=== PATIENT | male | born 1945 | race Caucasian/White ===

== ENCOUNTER 2017-09-08 01:12 | Inpatient (IN) | payer MEDICARE ==
[2017-09-08] MEDS ORDERED: SODIUM CHLORIDE 0.9% 1,000 ML IV ONE (01:49)
[2017-09-08 02:25] LABS: Basophils # (A) 0.1 k/uL (0-0.2); Basophils % (A) 1 %; Eosinophils # (A) 0.3 k/uL (0-0.7); Eosinophils % (A) 3 %; HCT 37.6 % (39.0-53.0); HGB 12.5 gm/dL (13.0-17.5); Lymphocytes % (A) 20 %; MCH 30.6 pg (25.0-35.0); MCHC 33.3 g/dL (31.0-37.0); Mean Platelet Volume 6.6; Monocytes # (A) 0.5 k/uL (0-1.0); Monocytes % (A) 5 %; Neutrophils # (A) 6.6 k/uL (1.3-7.7); Neutrophils % (A) 69 %; Platelet Count 269 k/uL (150-450); RBC 4.08 m/uL (4.30-5.90); WBC 9.6 k/uL (3.8-10.6)
[2017-09-08 02:34] LABS: Albumin 3.8 g/dL (3.5-5.0); Calcium 10.7 mg/dL (8.4-10.2); Lithium 1.1 mmol/L; Potassium 4.8 mmol/L (3.5-5.1); Total Bilirubin 0.2 mg/dL (0.2-1.3); Total Protein 6.2 g/dL (6.3-8.2)
--- NOTE | 2017-09-08 02:39 | XR ---
EXAMINATION TYPE: XR chest 2V DATE OF EXAM: 09/08/2017 COMPARISON: 01/11/2015 HISTORY: Altered mental status TECHNIQUE: Frontal and lateral views of the chest are obtained. FINDINGS: There is no heart failure nor confluent pneumonic infiltrate. Thoracic aorta is atheromato us. There is left axillary pacemaker with lead tips in the right ventricle. There are chest leads. IMPRESSION: No active cardiopulmonary disease. Atheromatous aorta. There is clearing of the lower lo be pulmonary infiltrates compared to old exam.
[2017-09-08 02:40] LABS: Prothrombin Time 9.5 sec (9.0-12.0)
[2017-09-08 02:42] LABS: Partial Thromboplastin Time 21.1 sec (22.0-30.0)
--- NOTE | 2017-09-08 02:46 | CT ---
EXAMINATION TYPE: CT brain wo con DATE OF EXAM: 09/08/2017 COMPARISON: 06/24/2010 HISTORY: AMS CT DLP: 1108.40 mGycm Automated exposure control for dose reduction was used. FINDINGS: There is 8 x 3 cm area of hypodensity in the right occipital lobe related to old cortical infarct. Th ere is no mass effect nor midline shift. There is no sign of intracranial hemorrhage. The calvarium i s intact. 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 NO ACUTE INTRACRANIAL ABNORMALITY. NO CHANGE.
[2017-09-08 03:07] LABS: Appearance,Urine Clear (Clear); Bilirubin,Urine Negative (Negative); Blood,Urine Negative (Negative); Color,Urine Yellow; Glucose,Urine (UA) Negative (Negative); Hyaline Casts,Urine 5 /lpf (0-2); Ketones,Urine Negative (Negative); Leukocyte Esterase,Urine Trace (Negative); Mucus,Urine Rare /hpf; Nitrite,Urine Negative (Negative); PH, Urine 6.5 (5.0-8.0); Protein,Urine Negative (Negative); RBC,Urine <1 /hpf (0-5); Specific Gravity,Urine 1.014 (1.001-1.035); Squamous Epithelial Cell,Urine 1 /hpf (0-4); Urobilinogen,Urine <2.0 mg/dL (<2.0); WBC,Urine 3 /hpf (0-5)
--- NOTE | 2017-09-08 04:22 | ED ---
Altered Mental Status HPI - General Chief Complaint: Altered Mental Status Stated Complaint: altered mental status Time Seen by Provider: 09/08/17 01:26 Source: patient Mode of arrival: ambulatory Limitations: no limitations - History of Present Illness Initial Comments: 72 years old gentleman brought in by she said she noticed that he has been confused for the last few days she also noticed that he had a jerky movements of his upper extremities is concerned about the altered mental status patient himself denies any headaches no neck pain no chest pain he has a shortness of breath but actually his baseline he has smoked most of his life no abdominal pain no frequency urgency dysuria no symptoms are TIA or CVA he has a history of heart disease he has a pacemaker in place - Related Data Home Medications Medication Instructions Recorded Confirmed Armodafinil [Nuvigil] 150 mg PO QAM 01/11/15 01/11/15 Aspirin 81 mg PO DAILY 01/11/15 01/11/15 Atorvastatin [Lipitor] 40 mg PO HS 01/11/15 01/11/15 Calcium Carbonate [Calcium] 600 mg PO DAILY 01/11/15 01/11/15 Carvedilol [Coreg] 3.125 mg PO BID 01/11/15 01/11/15 Ferrous Sulfate [Iron (65 MG 325 mg PO DAILY 01/11/15 01/11/15 Elemental)] Insulin Aspart [NovoLOG] 10 - 14 units SQ ACHS 01/11/15 01/11/15 Insulin Detemir [Levemir] 47 unit SQ BID 01/11/15 01/11/15 Irbesartan [Avapro] 75 mg PO DAILY 01/11/15 01/11/15 [place] Carbonate [[place] 300 mg PO HS 01/11/15 01/11/15 Carbonate ER] Omeprazole [PriLOSEC] 20 mg PO AC-BRKFST 01/11/15 01/11/15 metFORMIN HCL [Glucophage] 500 mg PO BID 01/11/15 01/11/15 Previous Rx's Medication Instructions Recorded Cephalexin [Keflex] 500 mg PO Q8HR #15 cap 01/14/15 Furosemide [Lasix] 40 mg PO DAILY #30 tablet 01/14/15 Nicotine 21Mg/24Hr Patch [Habitrol] 1 patch TRANSDERM DAILY #30 patch 01/14/15 SILVER sulfADIAZINE Cream 1 applic TOPICAL DAILY #50 gm 01/14/15 [Silvadene 1% Cream] Spironolactone [Aldactone] 25 mg PO DAILY #30 tab 01/14/15 Allergies Allergy/AdvReac Type Severity Reaction Status Date / Time No Known Allergies Allergy Verified 09/08/17 01:19 Review of Systems ROS Statement: Those systems with pertinent positive or pertinent negative responses have been documented in the HPI. ROS Other: All systems not noted in ROS Statement are negative. Past Medical History Past Medical History: Heart Failure, CVA/TIA, Diabetes Mellitus, Hyperlipidemia , Hypertension Additional Past Medical History / Comment(s): missing ring finger on right hand History of Any Multi-Drug Resistant Organisms: None Reported Past Surgical History: Pacemaker Additional Past Surgical History / Comment(s): carotid artery surgery Past Anesthesia/Blood Transfusion Reactions: No Reported Reaction Type of Cardiac Device: Permanent Pacemaker Device Placement Date:: 2009 Past Psychological History: No Psychological Hx Reported Smoking Status: Current every day smoker Past Alcohol Use History: None Reported Past Drug Use History: None Reported - Past Family History Mother Family Medical History: Cancer Brother(s) Family Medical History: Cancer General Exam - General Exam Comments Initial Comments: General: The patient is awake and alert, in no distress, and does not appear acutely ill. GCS is 15 Skin: Skin is warm and dry and no rashes or lesions are noted. Eye: Pupils are equal, round and reactive to light, extra-ocular movements are intact; there is normal conjunctiva bilaterally. Ears, nose, mouth and throat: There are moist mucous membranes and no oral lesions. Neck: The neck is supple, there is no tenderness or JVD. Cardiovascular: There is a regular rate and rhythm. No murmur, rub or gallop is appreciated. Respiratory: To auscultation bilateral, no wheezing no rhonchi no distress respiratory fonseca noticed Gastrointestinal: Soft, non-distended, non-tender abdomen without masses or organomegaly noted. There is no rebound or guarding present. Bowel sounds are unremarkable. Back: There is no tenderness to palpation in the midline. There is no obvious deformity. Musculoskeletal: Normal ROM, no tenderness, There is no pedal edema. There is no calf tenderness or swelling. No cords were appreciated. Neurological: CN II-XII intact, Cranial nerves III through XII are intact. There are no obvious motor or sensory deficits. Coordination appears grossly intact. Speech is normal. Psychiatric: Cooperative, appropriate mood & affect, normal judgment. Limitations: no limitations Course Vital Signs 09/08/17 01:15 Temperature 98.5 F Pulse Rate 70 Respiratory 18 Rate Blood Pressure 117/49 O2 Sat by Pulse 97 Oximetry EKG is ventricular rate is 73 QRS duration is 204 QT/QTc is a 46/435 this EKG is a paced EKG History of system CBC is normal INR is normal creatinine is 1.8 troponin is positive urinalysis is unremarkable head CT is normal chest x-ray ruled out any pneumonia or infiltrate, considering his history of heart disease slightly elevated troponin: To admit him observation and consult cardiology Medical Decision Making - Lab Data Result diagrams: 09/08/17 01:40 09/08/17 01:40 Lab Results 09/08/17 09/08/17 09/08/17 Range/Units 01:40 01:40 01:40 WBC 9.6 (3.8-10.6) k/uL RBC 4.08 L (4.30-5.90) m/uL Hgb 12.5 L (13.0-17.5) gm/dL Hct 37.6 L (39.0-53.0) % MCV 92.0 (80.0-100.0) fL MCH 30.6 (25.0-35.0) pg MCHC 33.3 (31.0-37.0) g/dL RDW 13.0 (11.5-15.5) % Plt Count 269 (150-450) k/uL Neutrophils % 69 % Lymphocytes % 20 % Monocytes % 5 % Eosinophils % 3 % Basophils % 1 % Neutrophils # 6.6 (1.3-7.7) k/uL Lymphocytes # 2.0 (1.0-4.8) k/uL Monocytes # 0.5 (0-1.0) k/uL Eosinophils # 0.3 (0-0.7) k/uL Basophils # 0.1 (0-0.2) k/uL PT 9.5 (9.0-12.0) sec INR 1.0 (<1.2) APTT 21.1 L (22.0-30.0) sec Sodium 141 (137-145) mmol/L Potassium 4.8 (3.5-5.1) mmol/L Chloride 104 (98-107) mmol/L Carbon Dioxide 27 (22-30) mmol/L Anion Gap 10 mmol/L BUN 52 H (9-20) mg/dL Creatinine 1.80 H (0.66-1.25) mg/dL Est GFR (CKD-EPI)AfAm 42 (>60 ml/min/1.73 sqM) Est GFR (CKD-EPI)NonAf 36 (>60 ml/min/1.73 sqM) Glucose 178 H (74-99) mg/dL Calcium 10.7 H (8.4-10.2) mg/dL Total Bilirubin 0.2 (0.2-1.3) mg/dL AST 16 L (17-59) U/L ALT 30 (21-72) U/L Alkaline Phosphatase 67 (38-126) U/L Troponin I (0.000-0.034) ng/mL Total Protein 6.2 L (6.3-8.2) g/dL Albumin 3.8 (3.5-5.0) g/dL Urine Color Urine Appearance (Clear) Urine pH (5.0-8.0) Ur Specific [place] (1.001-1.035) Urine Protein (Negative) Urine Glucose (UA) (Negative) Urine Ketones (Negative) Urine Blood (Negative) Urine Nitrite (Negative) Urine Bilirubin (Negative) Urine Urobilinogen (<2.0) mg/dL Ur Leukocyte Esterase (Negative) Urine RBC (0-5) /hpf Urine WBC (0-5) /hpf Ur Squamous Epith Cells (0-4) /hpf Hyaline Casts (0-2) /lpf Urine Mucus (None) /hpf [place] 1.1 mmol/L 09/08/17 09/08/17 Range/Units 01:40 02:58 WBC (3.8-10.6) k/uL RBC (4.30-5.90) m/uL Hgb (13.0-17.5) gm/dL Hct (39.0-53.0) % MCV (80.0-100.0) fL MCH (25.0-35.0) pg MCHC (31.0-37.0) g/dL RDW (11.5-15.5) % Plt Count (150-450) k/uL Neutrophils % % Lymphocytes % % Monocytes % % Eosinophils % % Basophils % % Neutrophils # (1.3-7.7) k/uL Lymphocytes # (1.0-4.8) k/uL Monocytes # (0-1.0) k/uL Eosinophils # (0-0.7) k/uL Basophils # (0-0.2) k/uL PT (9.0-12.0) sec INR (<1.2) APTT (22.0-30.0) sec Sodium (137-145) mmol/L Potassium (3.5-5.1) mmol/L Chloride (98-107) mmol/L Carbon Dioxide (22-30) mmol/L Anion Gap mmol/L BUN (9-20) mg/dL Creatinine (0.66-1.25) mg/dL Est GFR (CKD-EPI)AfAm (>60 ml/min/1.73 sqM) Est GFR (CKD-EPI)NonAf (>60 ml/min/1.73 sqM) Glucose (74-99) mg/dL Calcium (8.4-10.2) mg/dL Total Bilirubin (0.2-1.3) mg/dL AST (17-59) U/L ALT (21-72) U/L Alkaline Phosphatase (38-126) U/L Troponin I 0.037 H* (0.000-0.034) ng/mL Total Protein (6.3-8.2) g/dL Albumin (3.5-5.0) g/dL Urine Color Yellow Urine Appearance Clear (Clear) Urine pH 6.5 (5.0-8.0) Ur Specific [place] 1.014 (1.001-1.035) Urine Protein Negative (Negative) Urine Glucose (UA) Negative (Negative) Urine Ketones Negative (Negative) Urine Blood Negative (Negative) Urine Nitrite Negative (Negative) Urine Bilirubin Negative (Negative) Urine Urobilinogen <2.0 (<2.0) mg/dL Ur Leukocyte Esterase Trace H (Negative) Urine RBC <1 (0-5) /hpf Urine WBC 3 (0-5) /hpf Ur Squamous Epith Cells 1 (0-4) /hpf Hyaline Casts 5 H (0-2) /lpf Urine Mucus Rare H (None) /hpf [place] mmol/L Disposition Clinical Impression: Change in mental status, Elevated troponin Disposition: ADMITTED IP TO THIS HOSP Condition: Good Referrals: Aria Zarco DO [Primary Care Provider] - 1-2 days
[2017-09-08] MEDS ORDERED: NITROGLYCERIN SL TABS 0.4 MG TAB SUBLINGUAL PRN (04:28)
[2017-09-08] MEDS ORDERED: MORPHINE SULFATE 2 MG/ML SYRINGE IVP PRN (04:28)
[2017-09-08] MEDS ORDERED: ACETAMINOPHEN TAB 325 MG TAB PO PRN (04:28)
[2017-09-08] MEDS: NICOTINE 21MG/24HR PATCH TRANSDERM SCH ×2 (05:07→10:08)
[2017-09-08 06:15] LABS: Glucose,Whole Blood 70 mg/dL (75-99)
[2017-09-08] MEDS ORDERED: PANTOPRAZOLE 40 MG TABLET PO SCH (07:30)
[2017-09-08 08:57] LABS: Creatine Kinase MB 1.2 ng/mL (0.0-2.4)
[2017-09-08] MEDS ORDERED: metFORMIN 500 MG TAB PO SCH (09:00)
[2017-09-08 09:01] LABS: Troponin I 0.035 ng/mL (0.000-0.034)
[2017-09-08 09:33] LABS: Glucose,Whole Blood 66 mg/dL (75-99)
[2017-09-08 09:44] LABS: Glucose,Whole Blood 81 mg/dL (75-99)
[2017-09-08] MEDS: INSULIN ASPART 100 UNIT/ML 1 ML 10 ML VIAL SQ SCH ×4 (09:58→21:47)
[2017-09-08] MEDS: Armodafinil [Nuvigil] 150 MG PO SCH (10:05)
[2017-09-08] MEDS: FERROUS SULFATE 325 MG TAB PO SCH (10:07)
[2017-09-08] MEDS: CARVEDILOL 3.125 MG TAB PO SCH ×2 (10:07→21:35)
[2017-09-08] MEDS: CALCIUM CARBONATE 500 MG CHEWABLE PO SCH (10:07)
[2017-09-08] MEDS: SPIRONOLACTONE 25 MG TAB PO SCH (10:08)
[2017-09-08] MEDS: LOSARTAN 25 MG TAB PO SCH (10:08)
[2017-09-08] MEDS: FUROSEMIDE 40 MG TAB PO SCH (10:08)
[2017-09-08] MEDS: INSULIN DETEMIR 100 UNIT/ML 10 ML VIAL SQ SCH ×3 (10:08→21:54)
[2017-09-08 12:03] LABS: Glucose,Whole Blood 135 mg/dL (75-99)
--- NOTE | 2017-09-08 12:54 | P.CRDCN ---
History of Present Illness Consult date: 09/08/17 Requesting physician: Ronna Novak Reason for Consult (text): Abnormal troponin Chief complaint: Mental status changes History of present illness: His is a 72-year-old gentleman who follows regularly with a retail tire sales manager in the [facility]. He has known history of hypertension, diabetes , prior CVA, hyperlipidemia, prior pacemaker implantation which was recently interrogated in the past 3-4 months and was functioning appropriately, nonischemic cardiomyopathy with prior documented ejection fraction of 20%, chronic heart failure. Patient was brought to the hospital on this occasion because of mental status changes and confusion. According to the , patient also was having jerky movements of his upper extremities for which she is quite concerned about. Troponins were drawn in the emergency room and for this reason a cardiology consultation was requested. Initial troponin 0.037, subsequent troponin 0.035. White blood cell count 9.6, hemoglobin 12.5, platelet count 269. Sodium 141, potassium 4.8, BUN 52, creatinine 1.8. EKG on arrival showed a ventricular paced rhythm. Chest x-ray did not reveal any active cardiopulmonary disease. Atheromatous aorta. Clearing of lower lobe infiltrates as compared with prior exam. CAT scan of the brain revealed old right bicipital low cortical infarct no acute intracranial abnormality. Blood pressure 110/50 with a heart rate in the 60s, 94% on room air. At the time of our examination, patient is alert and oriented, is at bedside. He denies having any chest discomfort. Breathing overall has been stable. Past Medical History Past Medical History: Heart Failure, CVA/TIA, Diabetes Mellitus, Hyperlipidemia , Hypertension Additional Past Medical History / Comment(s): Missing ring finger on right hand History of Any Multi-Drug Resistant Organisms: None Reported Past Surgical History: Pacemaker Additional Past Surgical History / Comment(s): carotid artery surgery Past Anesthesia/Blood Transfusion Reactions: No Reported Reaction Type of Cardiac Device: Permanent Pacemaker Device Placement Date:: 2009 Past Psychological History: No Psychological Hx Reported Smoking Status: Current every day smoker Past Alcohol Use History: None Reported Past Drug Use History: None Reported - Past Family History Mother Family Medical History: Cancer Brother(s) Family Medical History: Cancer Medications and Allergies Home Medications Medication Instructions Recorded Confirmed Type Armodafinil [Nuvigil] 150 mg PO HS 01/11/15 09/08/17 History Aspirin 81 mg PO HS 01/11/15 09/08/17 History Atorvastatin [Lipitor] 40 mg PO HS 01/11/15 09/08/17 History Carvedilol [Coreg] 3.125 mg PO BID 01/11/15 09/08/17 History Ferrous Sulfate [Iron (65 MG 325 mg PO DAILY@1200 01/11/15 09/08/17 History Elemental)] Insulin Aspart [NovoLOG] See Protocol SQ AC-TID 01/11/15 09/08/17 History Insulin Detemir [Levemir] 47 unit SQ BID 01/11/15 09/08/17 History Irbesartan [Avapro] 75 mg PO W/SUPPER 01/11/15 09/08/17 History [place] Carbonate [[place] 300 mg PO DAILY 01/11/15 09/08/17 History Carbonate ER] metFORMIN HCL [Glucophage] 500 mg PO BID 01/11/15 09/08/17 History Furosemide [Lasix] 40 mg PO DAILY #30 tablet 01/14/15 09/08/17 Rx SILVER sulfADIAZINE Cream 1 applic TOPICAL DAILY #50 gm 01/14/15 09/08/17 Rx [Silvadene 1% Cream] Calcium Carbonate/Vitamin D3 1 tab PO DAILY@1200 09/08/17 09/08/17 History [Calcium 500-Vit D3 200 Tablet] Cilostazol [Pletal] 50 mg PO BID 09/08/17 09/08/17 History Famotidine [Pepcid] 20 mg PO HS 09/08/17 09/08/17 History Spironolactone [Aldactone] 12.5 mg PO DAILY@1200 09/08/17 09/08/17 History Allergies Allergy/AdvReac Type Severity Reaction Status Date / Time No Known Allergies Allergy Verified 09/08/17 08:03 Physical Exam Vitals: Vital Signs Temp Pulse Pulse Resp BP BP Pulse Ox 09/08/17 12:00 97.5 F L 66 18 109/53 94 L 09/08/17 08:00 97.3 F L 70 18 106/68 96 09/08/17 06:00 97.8 F 65 18 134/76 96 09/08/17 01:15 98.5 F 70 18 117/49 97 Intake and Output 09/07/17 09/08/17 09/08/17 22:59 06:59 14:59 Other: Voiding Method Toilet Toilet Incontinent Incontinent Weight 93 kg 93 kg PHYSICAL EXAMINATION: GENERAL: 72-year-old gentleman in no apparent distress at the time of our examination. HEENT: Head is atraumatic, normocephalic. Pupils equal, round. Sclera anicteric. Conjunctiva are clear. Mucous membranes of the mouth are moist. Neck is supple. There is no elevated jugular venous pressure.] bruit is heard. HEART EXAMINATION: Heart S1, S2 normal. No murmur or gallop heard. CHEST EXAMINATION: Lungs are clear to auscultation and precussion. No chest wall tenderness is noted on palpation or with deep breathing. ABDOMEN: Soft, nontender. Bowel sounds are heard. No organomegaly noted. EXTREMITIES: 2+ peripheral pulses with no evidence of peripheral edema and no calf tenderness noted. NEUROLOGIC patient is awake, alert and oriented -3. . Results 09/08/17 01:40 09/08/17 01:40 Cardiac Enzymes 09/08/17 09/08/17 09/08/17 Range/Units 01:40 01:40 07:47 AST 16 L (17-59) U/L CK-MB (CK-2) 1.2 (0.0-2.4) ng/mL Troponin I 0.037 H* 0.035 H* (0.000-0.034) ng/mL Coagulation 09/08/17 Range/Units 01:40 PT 9.5 (9.0-12.0) sec APTT 21.1 L (22.0-30.0) sec CBC 09/08/17 Range/Units 01:40 WBC 9.6 (3.8-10.6) k/uL RBC 4.08 L (4.30-5.90) m/uL Hgb 12.5 L (13.0-17.5) gm/dL Hct 37.6 L (39.0-53.0) % Plt Count 269 (150-450) k/uL Comprehensive Metabolic Panel 09/08/17 Range/Units 01:40 Sodium 141 (137-145) mmol/L Potassium 4.8 (3.5-5.1) mmol/L Chloride 104 (98-107) mmol/L Carbon Dioxide 27 (22-30) mmol/L BUN 52 H (9-20) mg/dL Creatinine 1.80 H (0.66-1.25) mg/dL Glucose 178 H (74-99) mg/dL Calcium 10.7 H (8.4-10.2) mg/dL AST 16 L (17-59) U/L ALT 30 (21-72) U/L Alkaline Phosphatase 67 (38-126) U/L Total Protein 6.2 L (6.3-8.2) g/dL Albumin 3.8 (3.5-5.0) g/dL Current Medications Generic Name Dose Route Start Last Admin Trade Name Freq PRN Reason Stop Dose Admin Acetaminophen 650 mg 09/08/17 04:28 Tylenol Tab PO Q4HR PRN Pain Aspirin 325 mg 09/09/17 09:00 Aspirin PO DAILY [facility] Atorvastatin Calcium 40 mg 09/08/17 21:00 Lipitor PO HS [facility] Calcium Carbonate/Glycine 600 mg 09/08/17 09:00 09/08/17 10:07 Tums PO Not Given DAILY [facility] Carvedilol 3.125 mg 09/08/17 09:00 09/08/17 10:07 Coreg PO 3.125 mg BID [facility] Administration Ferrous Sulfate 325 mg 09/08/17 09:00 09/08/17 10:07 Feosol PO 325 mg DAILY [facility] Administration Furosemide 40 mg 09/08/17 09:00 09/08/17 10:08 Lasix PO 40 mg DAILY [facility] Administration Sodium Chloride 1,000 mls @ 75 mls/hr 09/08/17 01:49 09/08/17 02:55 Saline 0.9% IV 09/08/17 15:08 75 mls/hr .[id number] ONE Administration Insulin Aspart 10 unit 09/08/17 07:30 09/08/17 09:58 Novolog SQ Not Given ACHS [facility] Insulin Detemir 47 unit 09/08/17 09:00 09/08/17 10:08 Levemir SQ 26 unit BID [facility] Administration [place] Carbonate 300 mg 09/08/17 21:00 [place] Carbonate PO HS [facility] Losartan Potassium 25 mg 09/08/17 09:00 09/08/17 10:08 Cozaar PO 25 mg DAILY [facility] Administration Morphine Sulfate 2 mg 09/08/17 04:28 Morphine Sulfate (Inj) IVP Q5M PRN Chest Pain Nicotine 1 patch 09/08/17 05:00 09/08/17 10:08 Habitrol 21mg/24hr Patch TRANSDERM 1 patch DAILY [facility] Administration Nitroglycerin 0.4 mg 09/08/17 04:28 Nitrostat SUBLINGUAL Q5M PRN Chest Pain Armodafinil [Nuvigil 150 mg 09/08/17 09:00 09/08/17 10:05 ] 150 Mg PO Not Given QAM [facility] Pantoprazole Sodium 40 mg 09/08/17 07:30 09/08/17 06:02 Protonix PO 40 mg AC-BRKFST [facility] Administration Silver Sulfadiazine 1 applic 09/08/17 09:00 09/08/17 10:08 Silvadene Cream TOPICAL 1 applic DAILY [facility] Administration Spironolactone 25 mg 09/08/17 09:00 09/08/17 10:08 Aldactone PO 25 mg DAILY [facility] Administration Intake and Output 09/07/17 09/08/17 09/08/17 22:59 06:59 14:59 Other: Voiding Method Toilet Toilet Incontinent Incontinent Weight 93 kg 93 kg Patient Weight 09/09/17 06:59 Weight 93 kg 09/08/17 01:40 09/08/17 01:40 EKG Interpretations (text) EKG shows a ventricular paced rhythm. Assessment and Plan Plan: Assessment and plan #1 mental status changes and confusion with associated jerking of the upper extremities. CAT scan reveals old right this the lobe cortical infarct. No acute intracranial abnormality. #2 abnormal troponins, could be secondary to abnormal renal function. Not suggestive of acute coronary syndrome. #3 nonischemic cardiomyopathy with prior documented ejection fraction of less than 20% #4 prior pacemaker implantation, recently interrogated approximately 3 months ago and functioning appropriately according to the . #5 prior history of CVA #6 prior left carotid endarterectomy #7 hypertension #8 hyperlipidemia #9 diabetes Plan We will repeat an echocardiogram with Doppler study. Decrease aspirin 81 mg daily. Continue by mouth Lasix, Cozaar, Aldactone, and Coreg. Troponin abnormality not consistent with acute coronary syndrome. Further recommendations to follow. DNP note has been reviewed, I agree with a documented findings and plan of care. Patient was seen and examined.
--- NOTE | 2017-09-08 13:56 | ECHOF ---
Referral Reason:elevated troponin MEASUREMENTS -------- HEIGHT: 162.6 cm WEIGHT: 93.0 kg BP: IVSd: 1.3 cm (0.6 - 1.1) LVIDd: 5.0 cm (3.9 - 5.3) LVPWd: 0.9 cm (0.6 - 1.1) IVSs: 1.5 cm LVIDs: 4.4 cm LVPWs: 1.3 cm LA Diam: 4.3 cm (2.7 - 3.8) LAESV Index (A-L): 42.56 ml/m Ao Diam: 3.7 cm (2.0 - 3.7) AV Cusp: 2.1 cm (1.5 - 2.6) LA Diam: 4.0 cm (2.7 - 3.8) MV EXCURSION: 20.130 mm (> 18.000) MV EF SLOPE: 70 mm/s (70 - 150) EPSS: 1.1 cm MV E Mono: 0.69 m/s MV DecT: 296 ms MV A Mono: 1.28 m/s MV E/A Ratio: 0.54 RAP: 5.00 mmHg RVSP: 9.71 mmHg FINDINGS -------- Paced rhythm. This was a techncally difficult study with suboptimal views, , Lumason utilized for enhancement of im ages. The left ventricular size is normal. There is mild concentric left ventricular hypertrophy. Overa ll left ventricular systolic function is moderately impaired with, an EF between 35 - 40 %. Basal l ateral LV wall motion is hypokinetic. Basal inferior LV wall motion is hypokinetic. Mid lateral LV wall motion is hypokinetic. Mid inferior LV wall motion is hypokinetic. Apical lateral LV w all motion is hypokinetic. Apical inferior LV wall motion is hypokinetic. Lateral hypokinesis The right ventricle is normal in size. LA is severely dilated >40 ml/m2 The right atrial size is normal. 5.0mg OF Lumason UTLIZED: 2 OR MORE WALL SEGMENTS NOT VISUALIZED. There is mild aortic valve sclerosis. There is no evidence of aortic regurgitation. Mild mitral annular calcification present. Mild mitral regurgitation is present. Mild tricuspid regurgitation present. There is no evidence of pulmonary hypertension. The right v entricular systolic pressure, as measured by Doppler, is 9.71mmHg. The pulmonic valve was not well visualized. There is no pulmonic regurgitation present. The aortic root size is normal. There is no pericardial effusion. CONCLUSIONS -------- 1. Paced rhythm. 2. This was a techncally difficult study with suboptimal views, , Lumason utilized for enhancement of images. 3. The left ventricular size is normal. 4. There is mild concentric left ventricular hypertrophy. 5. Overall left ventricular systolic function is moderately impaired with, an EF between 35 - 40 %. 6. Basal lateral LV wall motion is hypokinetic. 7. Mid inferior LV wall motion is hypokinetic. 8. Apical lateral LV wall motion is hypokinetic. 9. Apical inferior LV wall motion is hypokinetic. 10. Lateral hypokinesis 11. LA is severely dilated >40 ml/m2 12. 5.0mg OF [place] UTLIZED: 2 OR MORE WALL SEGMENTS NOT VISUALIZED. 13. There is mild aortic valve sclerosis. 14. Mild mitral annular calcification present. 15. Mild mitral regurgitation is present. 16. Mild tricuspid regurgitation present. 17. There is no evidence of pulmonary hypertension. 18. There is no pulmonic regurgitation present. 19. The aortic root size is normal. 20. There is no pericardial effusion. RETAIL SALES SPECIALIST: Serenity Bravo RDCS
[2017-09-08] MEDS ORDERED: SODIUM CHLORIDE 0.9% 1,000 ML IV SCH ×2 (15:15→16:00)
[2017-09-08 15:26] LABS: Creatine Kinase MB 1.4 ng/mL (0.0-2.4)
[2017-09-08 15:33] LABS: Troponin I 0.038 ng/mL (0.000-0.034)
--- NOTE | 2017-09-08 16:02 | P.HPIM ---
History of Present Illness This is a pleasant 72 years old male with past medical history of CHF, CVA/TIA, diabetes mellitus, hyperlipidemia, hypertension, mesentery finger on the right and, S/P carotid artery surgery, S/P permanent pacemaker. Patient presents because of confusion and upper extremity jerking movements of one-day duration. Patient is poor historian and most of the information were taken from the chart and at bedside Mrs. Luna. The noticed that the patient was more confused today and yesterday for example he couldn't recognize the portals he was taken. Also she noticed some jerking movements of his upper extremity which were stable now. Patient also was complaining of from vomiting to 3 days ago. And on examination when it was noticed that his right leg is wrapped in a bandage and it looks right with no open wound, and warm to touch In the ED patient was found to have positive troponin of 0.037, 0.035. WBC is 9.6K, hemoglobin is 12.5. INR is 1.0. His creatinine was high at 1.8 [ baseline 1.2-1.3]. Sodium 141, potassium 4.8. Liver enzymes were unremarkable. UA is negative for infection. Head CT old occipital infarct with no acute changes Echo shows EF 35-40%, paced rhythm, and hypokinetic LV wall motion abnormality Review of Systems CONSTITUTIONAL: No fever, no malaise, no fatigue. HEENT: No recent visual problems or hearing problems. Denied any sore throat. CARDIOVASCULAR: No orthopnea, PND, no palpitations, no syncope. PULMONARY: No shortness of breath, no cough, no hemoptysis. GASTROINTESTINAL: No diarrhea, no nausea, no vomiting, no abdominal pain. Normoactive bowel sounds. NEUROLOGICAL: No headaches, no weakness, no numbness. HEMATOLOGICAL: Denies any bleeding or petechiae. GENITOURINARY: Denies any burning micturition, frequency, or urgency. MUSCULOSKELETAL/RHEUMATOLOGICAL: Denies any joint pain, swelling, or any muscle pain. ENDOCRINE: Denies any polyuria or polydipsia. Past Medical History Past Medical History: Heart Failure, CVA/TIA, Diabetes Mellitus, Hyperlipidemia , Hypertension Additional Past Medical History / Comment(s): Missing ring finger on right hand History of Any Multi-Drug Resistant Organisms: None Reported Past Surgical History: Pacemaker Additional Past Surgical History / Comment(s): carotid artery surgery Past Anesthesia/Blood Transfusion Reactions: No Reported Reaction Type of Cardiac Device: Permanent Pacemaker Device Placement Date:: 2009 Past Psychological History: No Psychological Hx Reported Smoking Status: Current every day smoker Past Alcohol Use History: None Reported Past Drug Use History: None Reported - Past Family History Mother Family Medical History: Cancer Brother(s) Family Medical History: Cancer Medications and Allergies Home Medications Medication Instructions Recorded Confirmed Type Armodafinil [Nuvigil] 150 mg PO HS 01/11/15 09/08/17 History Aspirin 81 mg PO HS 01/11/15 09/08/17 History Atorvastatin [Lipitor] 40 mg PO HS 01/11/15 09/08/17 History Carvedilol [Coreg] 3.125 mg PO BID 01/11/15 09/08/17 History Ferrous Sulfate [Iron (65 MG 325 mg PO DAILY@1200 01/11/15 09/08/17 History Elemental)] Insulin Aspart [NovoLOG] See Protocol SQ AC-TID 01/11/15 09/08/17 History Insulin Detemir [Levemir] 47 unit SQ BID 01/11/15 09/08/17 History Irbesartan [Avapro] 75 mg PO W/SUPPER 01/11/15 09/08/17 History Mccall Carbonate [Mccall 300 mg PO DAILY 01/11/15 09/08/17 History Carbonate ER] metFORMIN HCL [Glucophage] 500 mg PO BID 01/11/15 09/08/17 History Furosemide [Lasix] 40 mg PO DAILY #30 tablet 01/14/15 09/08/17 Rx SILVER sulfADIAZINE Cream 1 applic TOPICAL DAILY #50 gm 01/14/15 09/08/17 Rx [Silvadene 1% Cream] Calcium Carbonate/Vitamin D3 1 tab PO DAILY@1200 09/08/17 09/08/17 History [Calcium 500-Vit D3 200 Tablet] Cilostazol [Pletal] 50 mg PO BID 09/08/17 09/08/17 History Famotidine [Pepcid] 20 mg PO HS 09/08/17 09/08/17 History Spironolactone [Aldactone] 12.5 mg PO DAILY@1200 18 09/08/17 History Allergies Allergy/AdvReac Type Severity Reaction Status Date / Time No Known Allergies Allergy Verified 09/08/17 08:03 Physical Exam Vitals: Vital Signs Temp Pulse Pulse Resp BP BP Pulse Ox 09/08/17 08:00 97.3 F L 70 18 106/68 96 09/08/17 06:00 97.8 F 65 18 134/76 96 09/08/17 01:15 98.5 F 70 18 117/49 97 Intake and Output 09/07/17 09/08/17 09/08/17 22:59 06:59 14:59 Other: Voiding Method Toilet Toilet Incontinent Incontinent Weight 93 kg 93 kg GENERAL: The patient is alert and oriented x1 to person only [he knows name of the president], is oriented to place partially for example he knows in the hospital but he doesn't know the name of the city [place], he was confused about the date to, not in any acute distress. Well developed, well nourished. HEENT: Pupils are round and equally reacting to light. EOMI. No scleral icterus. No conjunctival pallor. Normocephalic, atraumatic. No pharyngeal erythema. No thyromegaly. CARDIOVASCULAR: S1 and S2 present. No murmurs, rubs, or gallops. PULMONARY: Chest is clear to auscultation, no wheezing or crackles. ABDOMEN: Soft, nontender, nondistended, normoactive bowel sounds. No palpable organomegaly. MUSCULOSKELETAL: No joint swelling or deformity. EXTREMITIES: No cyanosis, clubbing, or pedal edema. -Right leg is warm and swollen, with some pinkish area in the lower leg. No open wound NEUROLOGICAL: Gross neurological examination did not reveal any focal deficits. SKIN: No rashes. Results CBC & Chem 7: 09/08/17 01:40 09/08/17 01:40 Labs: Abnormal Lab Results - Last 24 Hours (Table) 09/08/17 09/08/17 09/08/17 Range/Units 01:40 01:40 01:40 RBC 4.08 L (4.30-5.90) m/uL Hgb 12.5 L (13.0-17.5) gm/dL Hct 37.6 L (39.0-53.0) % APTT 21.1 L (22.0-30.0) sec BUN 52 H (9-20) mg/dL Creatinine 1.80 H (0.66-1.25) mg/dL Glucose 178 H (74-99) mg/dL POC Glucose (mg/dL) (75-99) mg/dL Calcium 10.7 H (8.4-10.2) mg/dL AST 16 L (17-59) U/L Total Creatine Kinase (55-170) U/L Troponin I (0.000-0.034) ng/mL Total Protein 6.2 L (6.3-8.2) g/dL Ur Leukocyte Esterase (Negative) Hyaline Casts (0-2) /lpf Urine Mucus (None) /hpf 09/08/17 09/08/17 09/08/17 Range/Units 01:40 02:58 06:06 RBC (4.30-5.90) m/uL Hgb (13.0-17.5) gm/dL Hct (39.0-53.0) % APTT (22.0-30.0) sec BUN (9-20) mg/dL Creatinine (0.66-1.25) mg/dL Glucose (74-99) mg/dL POC Glucose (mg/dL) 70 L (75-99) mg/dL Calcium (8.4-10.2) mg/dL AST (17-59) U/L Total Creatine Kinase (55-170) U/L Troponin I 0.037 H* (0.000-0.034) ng/mL Total Protein (6.3-8.2) g/dL Ur Leukocyte Esterase Trace H (Negative) Hyaline Casts 5 H (0-2) /lpf Urine Mucus Rare H (None) /hpf 09/08/17 09/08/17 Range/Units 07:47 09:20 RBC (4.30-5.90) m/uL Hgb (13.0-17.5) gm/dL Hct (39.0-53.0) % APTT (22.0-30.0) sec BUN (9-20) mg/dL Creatinine (0.66-1.25) mg/dL Glucose (74-99) mg/dL POC Glucose (mg/dL) 66 L (75-99) mg/dL Calcium (8.4-10.2) mg/dL AST (17-59) U/L Total Creatine Kinase 29 L (55-170) U/L Troponin I 0.035 H* (0.000-0.034) ng/mL Total Protein (6.3-8.2) g/dL Ur Leukocyte Esterase (Negative) Hyaline Casts (0-2) /lpf Urine Mucus (None) /hpf Thrombosis Risk Factor Assmnt - Choose All That Apply Any of the Below Risk Factors Present?: Yes Each Factor Represents 1 point: Heart failure (<1month), Obesity (BMI >25), Swollen legs (current) Other Risk Factors: Yes Each Risk Factor Represents 2 Points: Age 61-74 years Thrombosis Risk Factor Assessment Total Risk Factor Score: 5 Thrombosis Risk Factor Assessment Level: High Risk Assessment and Plan Plan: -Acute coronary syndrome, with positive troponins, echocardiogram shows EF 35-40 % with LV wall motion abnormality. Cardiology consultation is called. Continue with aspirin, statin -Acute kidney injury on the top of CKD. Creatinine 1.8 compared to baseline of 1.2-1.3. Call nephrology consult -Mild confusion, mostly secondary to the above problems of the heart, kidney and infection -Hyperlipidemia continue with statin -High blood pressure continue with Coreg 3.125 mg and Lasix 40 mg by mouth daily and Aldactone 25 mg daily -Possible cellulitis of the right lower extremity, started on antibiotic and check Doppler of the lower extremity to rule out DVT -Diabetes mellitus continue with Levemir 47 units twice a day, and NovoLog 10 units before meals at bedtime and insulin sliding scale. Hold metformin 500 mg twice a day -Dehydration, patient looks dehydrated. History of vomiting, dry mucous membranes, and acute kidney injury area we'll start gentle hydration and follow- up with the patient DVT prophylaxis heparin GI prophylaxis Pepcid PT/OT pending Prognosis is guarded given his multiple and complex comorbidities
[2017-09-08 16:40] LABS: Glucose,Whole Blood 173 mg/dL (75-99)
[2017-09-08] MEDS: ceFAZolin 1,000 MG in DEXTROSE/WATER 1 50ML.BAG IVPB SCH ×2 (18:04→23:27)
--- NOTE | 2017-09-08 18:12 | US ---
EXAMINATION TYPE: US venous doppler duplex LE BI DATE OF EXAM: 09/08/2017 3:54 PM COMPARISON: NONE CLINICAL HISTORY: Rule out DVT. Weakness, leg swelling SIDE PERFORMED: Bilateral TECHNIQUE: The lower extremity deep venous system is examined utilizing real time linear array sonog ej with graded compression, doppler sonography and color-flow sonography. VESSELS IMAGED: External Iliac Vein (EIV) Common Femoral Vein Deep Femoral Vein Greater Saphenous Vein * Femoral Vein Popliteal Vein Small Saphenous Vein * Proximal Calf Veins (* superficial vessels) FINDINGS: Grayscale, color doppler, spectral doppler imaging performed of the deep veins of the lower extremities. There is normal flow, compressibility, vascular waveforms. IMPRESSION: NEGATIVE FOR DVT, BILATERAL LOWER EXTREMITIES.
[2017-09-08 20:30] LABS: Glucose,Whole Blood 178 mg/dL (75-99)
[2017-09-08] MEDS: FAMOTIDINE 20 MG/2 ML VIAL IV SCH (21:35)
[2017-09-08] MEDS: LITHIUM CARBONATE 300 MG CAP PO SCH (21:35)
[2017-09-08] MEDS: HEPARIN SODIUM,PORCINE 5,000 UNIT/ML 1 ML VIAL SQ SCH (21:35)
[2017-09-08] MEDS: ATORVASTATIN 40 MG TAB PO SCH (21:35)
[2017-09-08 22:34] LABS: Calcium 9.7 mg/dL (8.4-10.2); Potassium 4.5 mmol/L (3.5-5.1)
[2017-09-09 01:59] LABS: Glucose,Whole Blood 48 mg/dL (75-99)
[2017-09-09 02:08] LABS: Glucose,Whole Blood 45 mg/dL (75-99)
[2017-09-09 02:20] LABS: Glucose,Whole Blood 53 mg/dL (75-99)
[2017-09-09 02:32] LABS: Glucose,Whole Blood 83 mg/dL (75-99)
[2017-09-09 03:30] LABS: Glucose,Whole Blood 159 mg/dL (75-99)
[2017-09-09 05:47] LABS: Basophils % (A) 0 %; Eosinophils # (A) 0.3 k/uL (0-0.7); Eosinophils % (A) 4 %; HCT 35.1 % (39.0-53.0); HGB 11.4 gm/dL (13.0-17.5); Lymphocytes # (A) 2.1 k/uL (1.0-4.8); Lymphocytes % (A) 28 %; MCH 30.2 pg (25.0-35.0); MCHC 32.4 g/dL (31.0-37.0); MCV 93.2 fL (80.0-100.0); Mean Platelet Volume 6.9; Monocytes # (A) 0.4 k/uL (0-1.0); Monocytes % (A) 5 %; Neutrophils # (A) 4.6 k/uL (1.3-7.7); Neutrophils % (A) 61 %; Platelet Count 213 k/uL (150-450); RBC 3.77 m/uL (4.30-5.90); WBC 7.5 k/uL (3.8-10.6)
[2017-09-09 05:54] LABS: Partial Thromboplastin Time 22.2 sec (22.0-30.0); Prothrombin Time 9.7 sec (9.0-12.0)
[2017-09-09 05:58] LABS: Calcium 9.6 mg/dL (8.4-10.2); Potassium 4.9 mmol/L (3.5-5.1)
[2017-09-09 06:19] LABS: Glucose,Whole Blood 137 mg/dL (75-99)
[2017-09-09] MEDS: INSULIN ASPART 100 UNIT/ML 1 ML 10 ML VIAL SQ SCH ×4 (07:58→21:51)
[2017-09-09] MEDS ORDERED: ASPIRIN 325 MG TAB PO SCH (09:00)
--- NOTE | 2017-09-09 09:55 | P.PN ---
Subjective This is a pleasant 72 years old male with past medical history of CHF, CVA/TIA, diabetes mellitus, hyperlipidemia, hypertension, mesentery finger on the right and, S/P carotid artery surgery, S/P permanent pacemaker. Patient presents because of confusion and upper extremity jerking movements of one-day duration. Patient is poor historian and most of the information were taken from the chart and at bedside Mrs. Luna. The noticed that the patient was more confused today and yesterday for example he couldn't recognize the medications he was taking. Also she noticed some jerking movements of his upper extremity which were stable now. Patient also was complaining of from vomiting to 3 days ago. And on examination when it was noticed that his right leg is wrapped in a bandage and it looks right with no open wound, and warm to touch In the ED patient was found to have positive troponin of 0.037, 0.035. WBC is 9.6K, hemoglobin is 12.5. INR is 1.0. His creatinine was high at 1.8 [ baseline 1.2-1.3]. Sodium 141, potassium 4.8. Liver enzymes were unremarkable. UA is negative for infection. Head CT old occipital infarct with no acute changes Echo shows EF 35-40%, paced rhythm, and hypokinetic LV wall motion abnormality 09/09/2017 Patient is improving, his visit dehydrated. He denies chest pain or dyspnea. His cellulitis on his right leg is improving as is less the patient and not warm today. He had an episode of hypoglycemia overnight that was corrected and his insulin dose was adjusted ROS CONSTITUTIONAL: No fever, no malaise, no fatigue. HEENT: No recent visual problems or hearing problems. Denied any sore throat. CARDIOVASCULAR: No orthopnea, PND, no palpitations, no syncope. PULMONARY: No shortness of breath, no cough, no hemoptysis. GASTROINTESTINAL: No diarrhea, no nausea, no vomiting, no abdominal pain. Normoactive bowel sounds. NEUROLOGICAL: No headaches, no weakness, no numbness. HEMATOLOGICAL: Denies any bleeding or petechiae. GENITOURINARY: Denies any burning micturition, frequency, or urgency. MUSCULOSKELETAL/RHEUMATOLOGICAL: Denies any joint pain, swelling, or any muscle pain. ENDOCRINE: Denies any polyuria or polydipsia. Objective - Vital Signs Vital signs: Vital Signs Temp 97.8 F 09/09/17 04:55 Pulse 62 09/09/17 04:55 Resp 16 09/09/17 04:55 BP 110/45 09/09/17 04:55 Pulse Ox 97 09/09/17 04:55 Intake & Output 09/08/17 09/09/17 09/09/17 18:59 06:59 18:59 Intake Total 420 180 Output Total 300 475 Balance 120 -475 180 Weight 93 kg 93.1 kg Intake: Oral 420 180 Output: Urine 300 475 Other: Voiding Method Toilet Toilet Incontinent Incontinent # Voids 1 - Exam GENERAL: The patient is more alert alert and oriented x2 to person and place [ he knows name of the president] [he knows he is in [facility]], he was confused about the date to, not in any acute distress. Well developed, well nourished. HEENT: Pupils are round and equally reacting to light. EOMI. No scleral icterus. No conjunctival pallor. Normocephalic, atraumatic. No pharyngeal erythema. No thyromegaly. CARDIOVASCULAR: S1 and S2 present. No murmurs, rubs, or gallops. PULMONARY: Chest is clear to auscultation, no wheezing or crackles. ABDOMEN: Soft, nontender, nondistended, normoactive bowel sounds. No palpable organomegaly. MUSCULOSKELETAL: No joint swelling or deformity. EXTREMITIES: No cyanosis, clubbing, or pedal edema. -Right leg is warm and swollen, with some pinkish area in the lower leg. No open wound NEUROLOGICAL: Gross neurological examination did not reveal any focal deficits. SKIN: No rashes. - Labs CBC & Chem 7: 09/09/17 05:20 09/09/17 05:20 Labs: Abnormal Lab Results - Last 24 Hours (Table) 09/08/17 09/08/17 09/08/17 Range/Units 12:00 13:48 16:38 RBC (4.30-5.90) m/uL Hgb (13.0-17.5) gm/dL Hct (39.0-53.0) % BUN (9-20) mg/dL Creatinine (0.66-1.25) mg/dL Glucose (74-99) mg/dL POC Glucose (mg/dL) 135 H 173 H (75-99) mg/dL Total Creatine Kinase 37 L (55-170) U/L Troponin I 0.038 H* (0.000-0.034) ng/mL Triglycerides (<150) mg/dL HDL Cholesterol (40-60) mg/dL 09/08/17 09/08/17 09/09/17 Range/Units 20:29 22:09 01:48 RBC (4.30-5.90) m/uL Hgb (13.0-17.5) gm/dL Hct (39.0-53.0) % BUN 40 H (9-20) mg/dL Creatinine 1.61 H (0.66-1.25) mg/dL Glucose 138 H (74-99) mg/dL POC Glucose (mg/dL) 178 H 48 L (75-99) mg/dL Total Creatine Kinase (55-170) U/L Troponin I (0.000-0.034) ng/mL Triglycerides (<150) mg/dL HDL Cholesterol (40-60) mg/dL 09/09/17 09/09/17 09/09/17 Range/Units 02:07 02:08 03:29 RBC (4.30-5.90) m/uL Hgb (13.0-17.5) gm/dL Hct (39.0-53.0) % BUN (9-20) mg/dL Creatinine (0.66-1.25) mg/dL Glucose (74-99) mg/dL POC Glucose (mg/dL) 45 L 53 L 159 H (75-99) mg/dL Total Creatine Kinase (55-170) U/L Troponin I (0.000-0.034) ng/mL Triglycerides (<150) mg/dL HDL Cholesterol (40-60) mg/dL 09/09/17 09/09/17 09/09/17 Range/Units 05:20 05:20 06:17 RBC 3.77 L (4.30-5.90) m/uL Hgb 11.4 L (13.0-17.5) gm/dL Hct 35.1 L (39.0-53.0) % BUN 38 H (9-20) mg/dL Creatinine 1.46 H (0.66-1.25) mg/dL Glucose 153 H (74-99) mg/dL POC Glucose (mg/dL) 137 H (75-99) mg/dL Total Creatine Kinase (55-170) U/L Troponin I (0.000-0.034) ng/mL Triglycerides 154 H (<150) mg/dL HDL Cholesterol 29 L (40-60) mg/dL Assessment and Plan Plan: -Acute coronary syndrome, with positive troponins, echocardiogram shows EF 35-40 % with LV wall motion abnormality. Cardiology consultation is appreciated and they recommended to Continue with aspirin 81 mg daily, statin and to check echo : Paced rhythm, EF 35-40% -Acute kidney injury on the top of CKD. Creatinine 1.8 compared to baseline of 1.2-1.3. Call nephrology consult -Mild confusion, mostly secondary to the above problems of the heart, kidney and infection. And is improving for example patient is more alert today and he is more alert to person and place compared to yesterday when he was to person only. Neurology consult and EEG are pending -Hyperlipidemia continue with statin -High blood pressure continue with Coreg 3.125 mg and Lasix 40 mg by mouth daily and Aldactone 25 mg daily -Possible cellulitis of the right lower extremity, started on antibiotic . His white BC is improving from 9.6 to 7.5K, and Doppler of the lower extremity is negative for DVT -Diabetes mellitus continue with Levemir 47 units twice a day, lowered to 43 units and then 40 units of low blood sugar and NovoLog 10 units before meals at bedtime and insulin sliding scale. Hold metformin 500 mg twice a day -Dehydration, patient looks dehydrated. History of vomiting, dry mucous membranes, and acute kidney injury . Creatinine is improving 1.8->1.4, hold IV hydration, and encourage oral hydration DVT prophylaxis heparin GI prophylaxis Pepcid PT/OT pending Prognosis is guarded given his multiple and complex comorbidities Time with Patient: Greater than 30
[2017-09-09] MEDS: ceFAZolin 1,000 MG in DEXTROSE/WATER 1 50ML.BAG IVPB SCH ×2 (10:11→15:10)
[2017-09-09] MEDS: HEPARIN SODIUM,PORCINE 5,000 UNIT/ML 1 ML VIAL SQ SCH ×2 (10:11→20:10)
[2017-09-09] MEDS: NICOTINE 21MG/24HR PATCH TRANSDERM SCH (10:11)
[2017-09-09] MEDS: SPIRONOLACTONE 25 MG TAB PO SCH (10:11)
[2017-09-09] MEDS: FERROUS SULFATE 325 MG TAB PO SCH (10:12)
[2017-09-09] MEDS: CALCIUM CARBONATE 500 MG CHEWABLE PO SCH (10:12)
[2017-09-09] MEDS: LOSARTAN 25 MG TAB PO SCH (10:12)
[2017-09-09] MEDS: FUROSEMIDE 40 MG TAB PO SCH (10:12)
[2017-09-09] MEDS: CARVEDILOL 3.125 MG TAB PO SCH ×2 (10:12→20:10)
[2017-09-09] MEDS: Armodafinil [Nuvigil] 150 MG PO SCH (10:12)
[2017-09-09] MEDS: FAMOTIDINE 20 MG/2 ML VIAL IV SCH (10:13)
[2017-09-09] MEDS: INSULIN DETEMIR 100 UNIT/ML 10 ML VIAL SQ SCH ×3 (10:13→21:51)
[2017-09-09 11:38] VITALS: BMI 28.6
--- NOTE | 2017-09-09 11:47 | P.PN ---
Subjective Progress Note Date: 09/09/17 This is a 72-year-old gentleman who follows regularly with a plane tableman in the [place] area. He has known history of hypertension, diabetes , prior CVA, hyperlipidemia, prior pacemaker implantation which was recently interrogated in the past 3-4 months and was functioning appropriately, nonischemic cardiomyopathy with prior documented ejection fraction of 20%, chronic heart failure. Patient was brought to the hospital on this occasion because of mental status changes and confusion. According to the , patient also was having jerky movements of his upper extremities for which she is quite concerned about. Troponins were drawn in the emergency room and for this reason a cardiology consultation was requested. Initial troponin 0.037, subsequent troponin 0.035. White blood cell count 9.6, hemoglobin 12.5, platelet count 269. Sodium 141, potassium 4.8, BUN 52, creatinine 1.8. EKG on arrival showed a ventricular paced rhythm. Chest x-ray did not reveal any active cardiopulmonary disease. Atheromatous aorta. Clearing of lower lobe infiltrates as compared with prior exam. CAT scan of the brain revealed old right bicipital low cortical infarct no acute intracranial abnormality. Blood pressure 110/50 with a heart rate in the 60s, 94% on room air. At the time of our examination, patient is alert and oriented, is at bedside. He denies having any chest discomfort. Breathing overall has been stable. 09/09/2017 Patient seen and examined this morning, sitting up in the chair at bedside. He has had no further episodes of arm twitching, it appears that he is much more alert and oriented today as well. Echocardiogram with Doppler study was performed which revealed an ejection fraction of 35-40%, basal lateral mid inferior apical lateral and apical inferior hypokinesia noted. Venous duplex study is negative for DVT in either leg. Blood pressure 110/40 with a heart rate in the 60s. White blood cell count 7.5, hemoglobin 11.4, platelet count 213. Sodium 139, potassium 4.9, BUN 38, creatinine 1.4. Patient has been cleared by Dr. Dionte Nowak for discharge home today. He's been instructed to follow-up next week with his plane tableman in [place] as an outpatient. We will continue the patient on Aldactone, losartan, Lasix, Coreg, Lipitor and baby aspirin. Objective - Vital Signs Vital signs: Vital Signs Temp 97.8 F 06/07/18 04:55 Pulse 62 09/09/17 04:55 Resp 16 09/09/17 04:55 BP 110/45 09/09/17 04:55 Pulse Ox 97 09/09/17 04:55 Intake & Output 09/08/17 09/09/17 09/09/17 18:59 06:59 18:59 Intake Total 420 180 Output Total 300 475 Balance 120 -475 180 Weight 93 kg 93.1 kg 93.1 kg Intake: Oral 420 180 Output: Urine 300 475 Other: Voiding Method Toilet Toilet Incontinent Incontinent # Voids 1 - Exam PHYSICAL EXAMINATION: GENERAL: 72-year-old gentleman in no apparent distress at the time of our examination. HEENT: Head is atraumatic, normocephalic. Pupils equal, round. Sclera anicteric. Conjunctiva are clear. Mucous membranes of the mouth are moist. Neck is supple. There is no elevated jugular venous pressure.] bruit is heard. HEART EXAMINATION: Heart S1, S2 normal. No murmur or gallop heard. CHEST EXAMINATION: Lungs are clear to auscultation and precussion. No chest wall tenderness is noted on palpation or with deep breathing. ABDOMEN: Soft, nontender. Bowel sounds are heard. No organomegaly noted. EXTREMITIES: 2+ peripheral pulses with no evidence of peripheral edema and no calf tenderness noted. NEUROLOGIC patient is awake, alert and oriented -3. - Labs CBC & Chem 7: 09/09/17 05:20 09/09/17 05:20 Labs: Abnormal Lab Results - Last 24 Hours (Table) 09/08/17 09/08/17 09/08/17 Range/Units 12:00 13:48 16:38 RBC (4.30-5.90) m/uL Hgb (13.0-17.5) gm/dL Hct (39.0-53.0) % BUN (9-20) mg/dL Creatinine (0.66-1.25) mg/dL Glucose (74-99) mg/dL POC Glucose (mg/dL) 135 H 173 H (75-99) mg/dL Total Creatine Kinase 37 L (55-170) U/L Troponin I 0.038 H* (0.000-0.034) ng/mL Triglycerides (<150) mg/dL HDL Cholesterol (40-60) mg/dL 09/08/17 09/08/17 09/09/17 Range/Units 20:29 22:09 01:48 RBC (4.30-5.90) m/uL Hgb (13.0-17.5) gm/dL Hct (39.0-53.0) % BUN 40 H (9-20) mg/dL Creatinine 1.61 H (0.66-1.25) mg/dL Glucose 138 H (74-99) mg/dL POC Glucose (mg/dL) 178 H 48 L (75-99) mg/dL Total Creatine Kinase (55-170) U/L Troponin I (0.000-0.034) ng/mL Triglycerides (<150) mg/dL HDL Cholesterol (40-60) mg/dL 09/09/17 09/09/17 09/09/17 Range/Units 02:07 02:08 03:29 RBC (4.30-5.90) m/uL Hgb (13.0-17.5) gm/dL Hct (39.0-53.0) % BUN (9-20) mg/dL Creatinine (0.66-1.25) mg/dL Glucose (74-99) mg/dL POC Glucose (mg/dL) 45 L 53 L 159 H (75-99) mg/dL Total Creatine Kinase (55-170) U/L Troponin I (0.000-0.034) ng/mL Triglycerides (<150) mg/dL HDL Cholesterol (40-60) mg/dL 09/09/17 09/09/17 09/09/17 Range/Units 05:20 05:20 06:17 RBC 3.77 L (4.30-5.90) m/uL Hgb 11.4 L (13.0-17.5) gm/dL Hct 35.1 L (39.0-53.0) % BUN 38 H (9-20) mg/dL Creatinine 1.46 H (0.66-1.25) mg/dL Glucose 153 H (74-99) mg/dL POC Glucose (mg/dL) 137 H (75-99) mg/dL Total Creatine Kinase (55-170) U/L Troponin I (0.000-0.034) ng/mL Triglycerides 154 H (<150) mg/dL HDL Cholesterol 29 L (40-60) mg/dL Assessment and Plan Plan: Assessment and plan #1 mental status changes and confusion with associated jerking of the upper extremities. CAT scan reveals old right this the lobe cortical infarct. No acute intracranial abnormality. #2 abnormal troponins, could be secondary to abnormal renal function. Not suggestive of acute coronary syndrome. #3 nonischemic cardiomyopathy with prior documented ejection fraction of less than 20% #4 prior pacemaker implantation, recently interrogated approximately 3 months ago and functioning appropriately according to the . #5 prior history of CVA #6 prior left carotid endarterectomy #7 hypertension #8 hyperlipidemia #9 diabetes Plan Echocardiogram with Doppler study revealed an ejection fraction of 35-40%. From cardiology's perspective, patient may be able to be discharged home. He has been instructed to follow-up with his plane tableman in the office in one week. We will continue the patient on baby aspirin, Lipitor, Coreg, Cozaar, and Aldactone. DNP note has been reviewed, I agree with a documented findings and plan of care. Patient was seen and examined.
[2017-09-09 12:01] LABS: Glucose,Whole Blood 93 mg/dL (75-99)
--- NOTE | 2017-09-09 14:23 | EEG ---
ELECTROENCEPHALOGRAM REPORT DATE OF SERVICE: 09/09/2017 REASON FOR TESTING: Altered mental status. DESCRIPTION OF THE PROCEDURE: This EEG was performed using a 21 channel digital electroencephalograph, following international 10-20 system. DESCRIPTION OF THE RECORDING: From the beginning of the tracing, and with the patient's eyes closed, the background rhythm was mostly consisting of 7 Hz theta frequency in the posterior occipital leads. No obvious asymmetry is seen. Photic stimulation was performed with a minimal driving response seen. No pathological waves were elicited. Occasional movement and muscle artifacts are seen. Hyperventilation was not performed. The patient does reach stage II of sleep during the tracing and occasional sleep spindles are seen. No epileptiform discharges were seen. His EKG lead showed a regular rate and rhythm. INTERPRETATION: This asleep and awake EEG can be considered within normal limits. There was no asymmetry seen. No epileptiform discharges were noticed. The absence of epileptiform discharges does not rule out the diagnosis of epilepsy, therefore clinical correlation is recommended. [id number] / IJN: [id number] /
[2017-09-09 17:07] LABS: Glucose,Whole Blood 317 mg/dL (75-99)
--- NOTE | 2017-09-09 19:26 | CONS ---
CONSULTATION DATE OF CONSULTATION: 09/09/2017. CHIEF COMPLAINT: Altered mental status. HISTORY OF PRESENT ILLNESS: Mr. Chan is a pleasant 72-year-old, male who is being evaluated by the neurology service per the request of Dr. Novak for altered mental status. The patient was brought into [facility] Emergency Room with complaints of confusion by his family. They noticed that he was not at his baseline. He does have history of baseline altered mental status, but he has been more confused over the past day. No recent injury or trauma has been reported. The patient has been having nausea and vomiting for the past 3 days, according to the chart. The patient is a poor historian and is quite confused at the time of my evaluation. Most of the history was obtained from the nursing staff and from the charts. A CT scan of the brain was done, which showed an ischemic stroke involving the right occipital lobe. This was felt to be unchanged when compared to his 06/24/2010 study. His lithium level was therapeutic at 1.1. His fasting lipid panel was normal except for slightly elevated triglycerides at 154 and reduced HDL at 29. His INR was normal. I did review his EEG which showed evidence of mild encephalopathy. His comprehensive metabolic profile showed renal insufficiency with a BUN of 38 and creatinine of 1.46 and hyperglycemia at 153. His CBC showed anemia with hemoglobin of 11.7. His urinalysis showed 5 WBCs with trace leukocyte esterase. PAST MEDICAL HISTORY: Stroke, congestive heart failure, diabetes, hypertension, dyslipidemia, pacemaker placement, carotid artery surgery, gastroesophageal reflux disease. SOCIAL HISTORY: The patient is a current every day smoker. There is no history of any alcohol or drug use. FAMILY HISTORY: Positive for cancer. HOME MEDICATIONS: Reviewed in the chart. ALLERGIES: No known drug allergies. REVIEW OF SYSTEMS: Unable to obtain due to patient's confusion. PHYSICAL EXAM: Vital signs show a temperature of 97.1, pulse 60, respirations 16, blood pressure 141/75. GENERAL APPEARANCE: The patient is a well-developed male who appears to be in no acute distress. HEENT: Normocephalic, atraumatic. No obvious facial asymmetry is seen. Neck is supple with no masses felt. CARDIOVASCULAR: Regular rate and rhythm. ABDOMEN: Nontender nondistended. Extremities showed trace edema. His right leg is bandaged. NEUROLOGICAL: The patient is drowsy, but he is arousable. He does follow simple commands. No obvious facial asymmetry is seen on cranial nerve testing. Postural tremors are noticed. No seizure-like activity is seen. Sensory was difficult to assess due to confusion. The patient is oriented to person only. IMPRESSION: 1. Altered mental status. 2. Multifactorial encephalopathy. 3. History of ischemic stroke. 4. Renal insufficiency. 5. Urinary tract infection. 6. Anemia. RECOMMENDATION: The patient does appear to be encephalopathic and this is likely multifactorial, given his renal insufficiency and urinary tract infection. Continue antibiotic therapy and continue IV hydration. His EEG did show evidence of mild encephalopathy. As for his history of ischemic stroke, continue anti-platelet therapy. I did review his CT scan of the brain which showed no acute findings, as mentioned above. Continue the rest of your current workup and management. I will continue to follow with you. Further recommendations to follow. Thank you for allowing me to participate in the care of your patient. If you have any questions, please feel free to contact me. KARLA / IMMANUEL: [id number] /
[2017-09-09] MEDS: LITHIUM CARBONATE 300 MG CAP PO SCH (20:10)
[2017-09-09] MEDS: ATORVASTATIN 40 MG TAB PO SCH (20:10)
[2017-09-09 21:39] LABS: Glucose,Whole Blood 271 mg/dL (75-99)
[2017-09-10] MEDS: ceFAZolin 1,000 MG in DEXTROSE/WATER 1 50ML.BAG IVPB SCH ×4 (00:08→23:41)
[2017-09-10 02:08] LABS: Glucose,Whole Blood 140 mg/dL (75-99)
[2017-09-10 06:03] LABS: Basophils % (A) 0 %; Eosinophils # (A) 0.4 k/uL (0-0.7); Eosinophils % (A) 6 %; HGB 12.6 gm/dL (13.0-17.5); Lymphocytes # (A) 2.3 k/uL (1.0-4.8); Lymphocytes % (A) 30 %; MCH 30.3 pg (25.0-35.0); MCV 91.7 fL (80.0-100.0); Mean Platelet Volume 6.6; Monocytes # (A) 0.4 k/uL (0-1.0); Monocytes % (A) 5 %; Neutrophils # (A) 4.3 k/uL (1.3-7.7); Neutrophils % (A) 57 %; Platelet Count 221 k/uL (150-450); RBC 4.15 m/uL (4.30-5.90); WBC 7.6 k/uL (3.8-10.6)
[2017-09-10] MEDS ORDERED: DEXTROSE 50%-WATER 50 ML SYRINGE IVP ONE (06:15)
[2017-09-10 06:17] LABS: Calcium 10.2 mg/dL (8.4-10.2); Potassium 4.1 mmol/L (3.5-5.1)
[2017-09-10] MEDS: INSULIN ASPART 100 UNIT/ML 1 ML 10 ML VIAL SQ SCH ×4 (06:23→21:00)
[2017-09-10 06:24] LABS: Glucose,Whole Blood 67 mg/dL (75-99)
[2017-09-10 06:41] LABS: Glucose,Whole Blood 133 mg/dL (75-99)
[2017-09-10] MEDS: FERROUS SULFATE 325 MG TAB PO SCH (09:11)
[2017-09-10] MEDS: HEPARIN SODIUM,PORCINE 5,000 UNIT/ML 1 ML VIAL SQ SCH ×2 (09:11→20:59)
[2017-09-10] MEDS: CALCIUM CARBONATE 500 MG CHEWABLE PO SCH (09:11)
[2017-09-10] MEDS: LOSARTAN 25 MG TAB PO SCH (09:11)
[2017-09-10] MEDS: NICOTINE 21MG/24HR PATCH TRANSDERM SCH (09:11)
[2017-09-10] MEDS: CARVEDILOL 3.125 MG TAB PO SCH ×2 (09:12→20:59)
[2017-09-10] MEDS: FUROSEMIDE 40 MG TAB PO SCH (09:12)
[2017-09-10] MEDS: SPIRONOLACTONE 25 MG TAB PO SCH (09:12)
[2017-09-10] MEDS: ASPIRIN 81 MG PO SCH (09:12)
[2017-09-10] MEDS: FAMOTIDINE 20 MG TAB PO SCH (09:12)
[2017-09-10] MEDS: Armodafinil [Nuvigil] 150 MG PO SCH (09:13)
[2017-09-10] MEDS: INSULIN DETEMIR 100 UNIT/ML 10 ML VIAL SQ SCH ×2 (09:15→22:21)
--- NOTE | 2017-09-10 10:20 | P.PN ---
Subjective This is a pleasant 72 years old male with past medical history of CHF, CVA/TIA, diabetes mellitus, hyperlipidemia, hypertension, mesentery finger on the right and, S/P carotid artery surgery, S/P permanent pacemaker. Patient presents because of confusion and upper extremity jerking movements of one-day duration. Patient is poor historian and most of the information were taken from the chart and at bedside Mrs. Luna. The noticed that the patient was more confused today and yesterday for example he couldn't recognize the medications he was taking. Also she noticed some jerking movements of his upper extremity which were stable now. Patient also was complaining of from vomiting to 3 days ago. And on examination when it was noticed that his right leg is wrapped in a bandage and it looks right with no open wound, and warm to touch In the ED patient was found to have positive troponin of 0.037, 0.035. WBC is 9.6K, hemoglobin is 12.5. INR is 1.0. His creatinine was high at 1.8 [ baseline 1.2-1.3]. Sodium 141, potassium 4.8. Liver enzymes were unremarkable. UA is negative for infection. Head CT old occipital infarct with no acute changes Echo shows EF 35-40%, paced rhythm, and hypokinetic LV wall motion abnormality 09/09/2017 Patient is improving, his visit dehydrated. He denies chest pain or dyspnea. His cellulitis on his right leg is improving as is less the patient and not warm today. He had an episode of hypoglycemia overnight that was corrected and his insulin dose was adjusted ROS CONSTITUTIONAL: No fever, no malaise, no fatigue. HEENT: No recent visual problems or hearing problems. Denied any sore throat. CARDIOVASCULAR: No orthopnea, PND, no palpitations, no syncope. PULMONARY: No shortness of breath, no cough, no hemoptysis. GASTROINTESTINAL: No diarrhea, no nausea, no vomiting, no abdominal pain. Normoactive bowel sounds. NEUROLOGICAL: No headaches, no weakness, no numbness. HEMATOLOGICAL: Denies any bleeding or petechiae. GENITOURINARY: Denies any burning micturition, frequency, or urgency. MUSCULOSKELETAL/RHEUMATOLOGICAL: Denies any joint pain, swelling, or any muscle pain. ENDOCRINE: Denies any polyuria or polydipsia. Objective - Vital Signs Vital signs: Vital Signs Temp 97.7 F 09/10/17 03:53 Pulse 63 09/10/17 03:57 Resp 17 09/10/17 03:57 BP 132/65 09/10/17 03:53 Pulse Ox 96 09/10/17 03:53 Intake & Output 09/09/17 09/10/17 09/10/17 18:59 06:59 18:59 Intake Total 473 220 240 Balance 473 220 240 Weight 93.1 kg 92.7 kg Intake: Intake, IV Titration 175 Amount Sodium Chloride 0.9% 1, 125 000 ml @ 40 mls/hr IV . Q24H [facility] Rx#:[id number] ceFAZolin 1,000 mg In 50 Dextrose/Water 1 50ml.bag @ 100 mls/hr IVPB Q8HR [facility] Rx#:[id number] Oral 298 220 240 Other: Voiding Method Toilet Toilet Incontinent Incontinent # Voids 1 - Exam GENERAL: The patient is more alert alert and oriented x2 to person and place [ he knows name of the president] [he knows he is in [facility]], he was confused about the date to, not in any acute distress. Well developed, well nourished. HEENT: Pupils are round and equally reacting to light. EOMI. No scleral icterus. No conjunctival pallor. Normocephalic, atraumatic. No pharyngeal erythema. No thyromegaly. CARDIOVASCULAR: S1 and S2 present. No murmurs, rubs, or gallops. PULMONARY: Chest is clear to auscultation, no wheezing or crackles. ABDOMEN: Soft, nontender, nondistended, normoactive bowel sounds. No palpable organomegaly. MUSCULOSKELETAL: No joint swelling or deformity. EXTREMITIES: No cyanosis, clubbing, or pedal edema. -Right leg is warm and swollen, with some pinkish area in the lower leg. No open wound NEUROLOGICAL: Gross neurological examination did not reveal any focal deficits. SKIN: No rashes. - Labs CBC & Chem 7: 09/10/17 05:44 09/10/17 05:44 Labs: Abnormal Lab Results - Last 24 Hours (Table) 09/09/17 09/09/17 09/10/17 Range/Units 17:03 21:38 02:06 RBC (4.30-5.90) m/uL Hgb (13.0-17.5) gm/dL Hct (39.0-53.0) % BUN (9-20) mg/dL Creatinine (0.66-1.25) mg/dL Glucose (74-99) mg/dL POC Glucose (mg/dL) 317 H 271 H 140 H (75-99) mg/dL 09/10/17 09/10/17 09/10/17 Range/Units 05:44 05:44 06:05 RBC 4.15 L (4.30-5.90) m/uL Hgb 12.6 L (13.0-17.5) gm/dL Hct 38.0 L (39.0-53.0) % BUN 30 H (9-20) mg/dL Creatinine 1.30 H (0.66-1.25) mg/dL Glucose 59 L (74-99) mg/dL POC Glucose (mg/dL) 67 L (75-99) mg/dL 09/10/17 Range/Units 06:35 RBC (4.30-5.90) m/uL Hgb (13.0-17.5) gm/dL Hct (39.0-53.0) % BUN (9-20) mg/dL Creatinine (0.66-1.25) mg/dL Glucose (74-99) mg/dL POC Glucose (mg/dL) 133 H (75-99) mg/dL Microbiology - Last 24 Hours (Table) 09/08/17 16:29 Blood Culture - Preliminary Blood No Growth after 24 hours Assessment and Plan Plan: -Acute coronary syndrome, with positive troponins, echocardiogram shows EF 35-40 % with LV wall motion abnormality. Cardiology consultation is appreciated and they recommended to Continue with aspirin 81 mg daily, statin and to check echo : Paced rhythm, EF 35-40% -Acute kidney injury on the top of CKD. Creatinine 1.8 compared to baseline of 1.2-1.3. Call nephrology consult -Mild confusion, mostly secondary to the above problems of the heart, kidney and infection. And is improving for example patient is more alert today and he is more alert to person and place compared to yesterday when he was to person only. Neurology consult and EEG: no epileptiform changes -Hyperlipidemia continue with statin -High blood pressure continue with Coreg 3.125 mg and Lasix 40 mg by mouth daily and Aldactone 25 mg daily -Possible cellulitis of the right lower extremity, started on antibiotic . His white BC is improving from 9.6 to 7.5K, and Doppler of the lower extremity is negative for DVT, improving: less pinkish and significantly less hotness -Diabetes mellitus continue with Levemir 47 units twice a day, lowered to 43 units and then 40 units of low blood sugar and NovoLog 10 units before meals at bedtime and insulin sliding scale. Hold metformin 500 mg twice a day -Dehydration, patient looks dehydrated. History of vomiting, dry mucous membranes, and acute kidney injury . Creatinine is improving 1.8->1.4,1.3 hold IV hydration, and encourage oral hydration DVT prophylaxis heparin GI prophylaxis Pepcid PT/OT TJ, discussed with the social media executive and they are on the case Prognosis is guarded given his multiple and complex comorbidities
[2017-09-10 11:43] LABS: Glucose,Whole Blood 211 mg/dL (75-99)
[2017-09-10 16:36] LABS: Glucose,Whole Blood 115 mg/dL (75-99)
[2017-09-10 20:18] LABS: Glucose,Whole Blood 251 mg/dL (75-99)
[2017-09-10] MEDS: ATORVASTATIN 40 MG TAB PO SCH (20:59)
[2017-09-10] MEDS: LITHIUM CARBONATE 300 MG CAP PO SCH (20:59)
--- NOTE | 2017-09-10 21:31 | P.PN ---
Subjective Progress Note Date: 09/10/17 Principal diagnosis: altered mental status Neurology is following on a 72-year-old male for altered mental status. Patient has history of elevated troponins and history of UTI. He was brought to the emergency room with complaints of confusion by his family. Noticed that he was not at his normal baseline. Patient's baseline is altered normally but according to spouse, he was more confused over the past couple days. No recent report of injury or trauma. He has also been having nausea and vomiting 3-[address] scan of brain was done which showed ischemic stroke involving the right occipital lobe. [place] to be unchanged compared to his 06/22/10 study. [place] level was therapeutic at 1.1, fasting lipid panel was normal but did have slightly elevated triglycerides at 154, reduced HDL at 29. There are was normal. EEG showed evidence of mild encephalopathy. CMP showed renal insufficiency. Hyperglycemia was also noted. CBC showed anemia. UA showed 5 WBCs with trace leukocyte esterase. On contact, patient was supine in bed, resting in no acute distress. Patient was alert and moving all extremities. Objective - Vital Signs Vital signs: Vital Signs Temp 98.0 F 09/10/17 16:10 Pulse 60 09/10/17 16:10 Resp 18 09/10/17 16:10 BP 118/57 09/10/17 16:10 Pulse Ox 95 09/10/17 16:10 Intake & Output 09/10/17 09/10/17 09/11/17 06:59 18:59 06:59 Intake Total 220 1410 Output Total 200 Balance 220 1210 Weight 92.7 kg Intake: Intake, IV Titration 50 Amount ceFAZolin 1,000 mg In 50 Dextrose/Water 1 50ml.bag @ 100 mls/hr IVPB Q8HR [facility] Rx#:[id number] Oral 220 1360 Output: Urine 200 Other: Voiding Method Toilet Toilet Incontinent Incontinent # Voids 1 - Exam General appearance: drowsy but arousable Head: Atraumatic, normocephalic, normal inspection Eyes: tracks objects and people in the room unable to assess fully due to confusion and distractibility. Ear, nose and throat: Normal exam, mucous membranes moist Neck: Normal inspection, absent tenderness, lymphadenopathy. Respiratory: No increased work of breathing Cardiovascular: Regular rate, rhythm GI/abdominal: no guarding, no rebound, no rigidity. Extremities: range of motion full in all 4 extremities Neurological: patient follows simple commands No obvious facial asymmetry seen in cranial nerve testing Postural tremors noted. No seizure activity seen. Sensory was difficult to assess due to confusion. Patient is oriented to person only. Psychological: Mood and affect appropriate for setting. - Labs CBC & Chem 7: 09/10/17 05:44 09/10/17 05:44 Labs: Abnormal Lab Results - Last 24 Hours (Table) 09/09/17 09/10/17 09/10/17 Range/Units 21:38 02:06 05:44 RBC 4.15 L (4.30-5.90) m/uL Hgb 12.6 L (13.0-17.5) gm/dL Hct 38.0 L (39.0-53.0) % BUN (9-20) mg/dL Creatinine (0.66-1.25) mg/dL Glucose (74-99) mg/dL POC Glucose (mg/dL) 271 H 140 H (75-99) mg/dL 09/10/17 09/10/17 09/10/17 Range/Units 05:44 06:05 06:35 RBC (4.30-5.90) m/uL Hgb (13.0-17.5) gm/dL Hct (39.0-53.0) % BUN 30 H (9-20) mg/dL Creatinine 1.30 H (0.66-1.25) mg/dL Glucose 59 L (74-99) mg/dL POC Glucose (mg/dL) 67 L 133 H (75-99) mg/dL 09/10/17 09/10/17 09/10/17 Range/Units 11:41 16:35 20:17 RBC (4.30-5.90) m/uL Hgb (13.0-17.5) gm/dL Hct (39.0-53.0) % BUN (9-20) mg/dL Creatinine (0.66-1.25) mg/dL Glucose (74-99) mg/dL POC Glucose (mg/dL) 211 H 115 H 251 H (75-99) mg/dL Microbiology - Last 24 Hours (Table) 09/08/17 16:29 Blood Culture - Preliminary Blood No Growth after 48 hours Assessment and Plan (1) Change in mental status Current Visit: Yes Status: Acute Code(s): R41.82 - ALTERED MENTAL STATUS, UNSPECIFIED SNOMED Code(s): 314392940 Plan: Patient does appear to have altered mental status which is secondary this point to possible infectious process. Patient is known to have an old infarct on imaging. EEG notes mild encephalopathy. CT brain notes old right occipital lobe cortical infarct. No acute intracranial abnormality noted. She needed contact underlying correctable etiology. continue Lipitor existing dose and frequency, continue 81 mg aspirin daily. continue neuro checks per protocol Status: Neurology following an as-needed basis, if patient is discharged notify patient to contact office in 10-14 days for follow-up I have discussed the plan of care with the physician prior to implementation and he agrees with the plan as implemented.
[2017-09-10 22:31] VITALS: RESP 16
[2017-09-11 06:23] VITALS: BP 127/71; PULSE 63; TEMP 97.6
[2017-09-11 07:25] LABS: Glucose,Whole Blood 117 mg/dL (75-99)
[2017-09-11 07:52] LABS: Basophils % (A) 1 %; Eosinophils # (A) 0.4 k/uL (0-0.7); Eosinophils % (A) 6 %; HCT 38.1 % (39.0-53.0); HGB 12.8 gm/dL (13.0-17.5); Lymphocytes % (A) 27 %; MCH 30.7 pg (25.0-35.0); MCHC 33.5 g/dL (31.0-37.0); MCV 91.8 fL (80.0-100.0); Mean Platelet Volume 6.5; Monocytes # (A) 0.4 k/uL (0-1.0); Monocytes % (A) 6 %; Neutrophils # (A) 4.4 k/uL (1.3-7.7); Neutrophils % (A) 59 %; Platelet Count 231 k/uL (150-450); RBC 4.15 m/uL (4.30-5.90); RDW 13.1 % (11.5-15.5); WBC 7.5 k/uL (3.8-10.6)
[2017-09-11 08:05] LABS: Calcium 9.7 mg/dL (8.4-10.2); Potassium 4.8 mmol/L (3.5-5.1)
[2017-09-11] MEDS: INSULIN ASPART 100 UNIT/ML 1 ML 10 ML VIAL SQ SCH (08:24)
[2017-09-11] MEDS: ASPIRIN 81 MG PO SCH (08:25)
[2017-09-11] MEDS: CALCIUM CARBONATE 500 MG CHEWABLE PO SCH (08:25)
[2017-09-11] MEDS: NICOTINE 21MG/24HR PATCH TRANSDERM SCH (08:25)
[2017-09-11] MEDS: Armodafinil [Nuvigil] 150 MG PO SCH (08:25)
[2017-09-11] MEDS: CARVEDILOL 3.125 MG TAB PO SCH (08:26)
[2017-09-11] MEDS: LOSARTAN 25 MG TAB PO SCH (08:26)
[2017-09-11] MEDS: FERROUS SULFATE 325 MG TAB PO SCH (08:26)
[2017-09-11] MEDS: HEPARIN SODIUM,PORCINE 5,000 UNIT/ML 1 ML VIAL SQ SCH (08:26)
[2017-09-11] MEDS: FUROSEMIDE 40 MG TAB PO SCH (08:26)
[2017-09-11] MEDS: FAMOTIDINE 20 MG TAB PO SCH (08:26)
[2017-09-11] MEDS: SPIRONOLACTONE 25 MG TAB PO SCH (08:26)
[2017-09-11] MEDS: ceFAZolin 1,000 MG in DEXTROSE/WATER 1 50ML.BAG IVPB SCH (08:30)
[2017-09-11] MEDS: INSULIN DETEMIR 100 UNIT/ML 10 ML VIAL SQ SCH (08:30)
--- NOTE | 2017-09-11 12:42 | P.DS ---
Providers Date of admission: 09/10/17 13:44 Attending physician: Ronna Novak Consults: 09/08/17 04:28 Consult Physician Urgent Consulting Provider: Phillip Martinez Consult Reason/Comments: Elevated troponin, history of coronary artery disease Do you want consulting provider notified?: Yes 09/08/17 15:56 Consult Physician Urgent Consulting Provider: America Garrido Consult Reason/Comments: Acute kidney injury Do you want consulting provider notified?: Yes 09/08/17 21:45 Consult Physician Routine Consulting Provider: Gabe Grimes Consult Reason/Comments: right arm has jerking motion, AMS Do you want consulting provider notified?: Yes Primary care physician: [facility] Course: Mr. Chan is a pleasant 72 years old male with past medical history of CHF, CVA/ TIA, diabetes mellitus, hyperlipidemia, hypertension, S/P carotid artery surgery , S/P permanent pacemaker. Patient presents because of confusion and upper extremity jerking movements of one-day duration. Patient is poor historian and most of the information were taken from the chart and at bedside Mrs. Luna. The noticed that the patient was more confused for example he couldn't recognize the medications he was taking at the time of admission . Also she noticed some jerking movements of his upper extremity which were stable now. Patient also was complaining of from vomiting to 3 days ago. And on examination when it was noticed that his right leg is wrapped in a bandage and it looks red with no open wound, and warm to touch. In the ED patient was found to have positive troponin of 0.037, 0.035. WBC is 9.6K, hemoglobin is 12.5. INR is 1.0. His creatinine was high at 1.8 [ baseline 1.2-1.3]. Sodium 141, potassium 4.8. Liver enzymes were unremarkable. UA is negative for infection. Head CT old occipital infarct with no acute changes Echo shows EF 35-40%, paced rhythm, and hypokinetic LV wall motion abnormality. Bilateral lower extremity Doppler negative for DVT Cardiology service and neurology services have been consulted. As per cardiology the patient had only mild elevation in troponins and they recommended an echo that was at his baseline with an EF of 35-40%. As per neurology recommendations patient had A CT scan head - WNL and an EEG done on - with no epileptiform waves. Patient's creatinine improved with IV hydration and as well as his mental status changes. Today the patient's is at the bedside and states that his mentation is back to his baseline and also the right lower extremity cellulitis looks much better compared to when they came in. PHYSICAL EXAM GENERAL: The patient is more alert alert and oriented x2 to person and place [ he knows name of the president] [he knows he is in [facility]], he was confused about the date to, not in any acute distress. Well developed, well nourished. HEENT: Pupils are round and equally reacting to light. EOMI. No scleral icterus. No conjunctival pallor. Normocephalic, atraumatic. No pharyngeal erythema. No thyromegaly. CARDIOVASCULAR: S1 and S2 present. No murmurs, rubs, or gallops. PULMONARY: Chest is clear to auscultation, no wheezing or crackles. ABDOMEN: Soft, nontender, nondistended, normoactive bowel sounds. No palpable organomegaly. MUSCULOSKELETAL: No joint swelling or deformity. EXTREMITIES: No cyanosis, clubbing, or pedal edema. -Right leg with some pinkish area in the lower leg. No open wound or ulcers. NEUROLOGICAL: Gross neurological examination did not reveal any focal deficits. DISCHARGE DIAGNOSIS - Acute encephalopathy- secondary to acute kidney injury - Right lower extremity cellulitis - Acute kidney injury- secondary to nausea and vomiting - Nonischemic cardiomyopathy - ejection fraction of 35-40% - Elevated troponins secondary to abnormal renal function- not acute coronary syndrome - History of CVA - Diabetes mellitus on insulin - Hyperlipidemia - Pacemaker in place Discussed with the patient and patient's at the bedside that he'll be discharged home with Keflex to be taken as prescribed. The rest of the home medications have been continued. Advised to follow up with PCP in 3-4 days. More than 35 minutes spent worse that discharge of the patient Patient Condition at Discharge: Good Plan - Discharge Summary Discharge Rx Participant: No New Discharge Prescriptions: New Cephalexin [Keflex] 500 mg PO Q8HR 4 Days #12 cap Continue Insulin Aspart [NovoLOG] See Protocol SQ AC-TID metFORMIN HCL [Glucophage] 500 mg PO BID Irbesartan [Avapro] 75 mg PO W/SUPPER Insulin Detemir [Levemir] 47 unit SQ BID Ferrous Sulfate [Iron (65 MG Elemental)] 325 mg PO DAILY@1200 Carvedilol [Coreg] 3.125 mg PO BID Aspirin 81 mg PO HS Armodafinil [Nuvigil] 150 mg PO HS Atorvastatin [Lipitor] 40 mg PO HS [place] Carbonate [[place] Carbonate ER] 300 mg PO DAILY SILVER sulfADIAZINE Cream [Silvadene 1% Cream] 1 applic TOPICAL DAILY #50 gm Furosemide [Lasix] 40 mg PO DAILY #30 tablet Cilostazol [Pletal] 50 mg PO BID Calcium Carbonate/Vitamin D3 [Calcium 500-Vit D3 200 Tablet] 1 tab PO DAILY@ 1200 Famotidine [Pepcid] 20 mg PO HS Spironolactone [Aldactone] 12.5 mg PO DAILY@1200 Discharge Medication List Armodafinil [Nuvigil] 150 mg PO HS 01/11/15 [History] Aspirin 81 mg PO HS 01/11/15 [History] Atorvastatin [Lipitor] 40 mg PO HS 01/11/15 [History] Carvedilol [Coreg] 3.125 mg PO BID 01/11/15 [History] Ferrous Sulfate [Iron (65 MG Elemental)] 325 mg PO DAILY@1200 01/11/15 [History] Insulin Aspart [NovoLOG] See Protocol SQ AC-TID 01/11/15 [History] Insulin Detemir [Levemir] 47 unit SQ BID 01/11/15 [History] Irbesartan [Avapro] 75 mg PO W/SUPPER 01/11/15 [History] [place] Carbonate [[place] Carbonate ER] 300 mg PO DAILY 01/11/15 [History] metFORMIN HCL [Glucophage] 500 mg PO BID 01/11/15 [History] Furosemide [Lasix] 40 mg PO DAILY #30 tablet 01/14/15 [Rx] SILVER sulfADIAZINE Cream [Silvadene 1% Cream] 1 applic TOPICAL DAILY #50 gm 03/19 [Rx] Calcium Carbonate/Vitamin D3 [Calcium 500-Vit D3 200 Tablet] 1 tab PO DAILY@ 1200 09/08/17 [History] Cilostazol [Pletal] 50 mg PO BID 09/08/17 [History] Famotidine [Pepcid] 20 mg PO HS 09/08/17 [History] Spironolactone [Aldactone] 12.5 mg PO DAILY@1200 09/08/17 [History] Cephalexin [Keflex] 500 mg PO Q8HR 4 Days #12 cap 09/11/17 [Rx] Follow up Appointment(s)/Referral(s): Aria Zarco DO [Primary Care Provider] - 1-2 days [facility], [NON-STAFF] - Patient Instructions/Handouts: Altered Mental Status (GEN) Discharge Disposition: HOME SELF-CARE
--- NOTE | 2017-09-13 17:41 | CDI ---
Last Revision, March 2017 Documentation Clarification Form Date: 09/13/17 From: Lindsey Moss Phone: If you have a question regarding this query, please contact Nisa Middleton at [phone] between 8am and 5pm Admit Date: 09/10/2017 1:44:00 PM Patient Name: Samir Chan Visit Number: [id number] Discharge Date: 09/11/17 ATTENTION: The Clinical Documentation Specialists (CDI) and [facility] Coding Staff appreciate your assistance in clarifying documentation. Please respond to the clarification below the line at the bottom and electronically sign. The CDI & [facility] Coding staff will review the response and follow-up if needed. Please note: Queries are made part of the Legal Health Record. If you have any questions, please contact the author of this message via ITS. Dr. Julianne Gruber CKD is documented in the H&P and the 09/09 and 09/10 prgoress notes. History/Risk Factors: Patient has a history of hypertension, diabetes, CHF and is a smoker. Clinical Indicators: Decreased GFR Current BUN/CR/GFR: 52/1.80/36 Patients BUN/CR/GFR: On discharge: 04/05./ Patients medications include: IVF: Sodium Chloride 1000 mls @ 75 mls/hr IV. In order to capture the severity of condition, please clarify if the condition signifies: CKD Stage 1 (GFR > 90) CKD Stage 2 (GFR 60-89) CKD Stage 3 (GFR 30-59) CKD Stage 4 (GFR 15-29) CKD Stage 5 (GFR <15) ESRD Other, please specify Unable to determine CKD Stage 3 (GFR 30-59) Julianne Gruber. MTDD
--- NOTE | 2017-09-13 17:51 | CDI ---
Last Revision, March 2017 Documentation Clarification Form Date: 09/13/17 From: Lindsey Moss Phone: If you have a question regarding this query, please contact Nisa Middleton at [phone] between 8am and 5pm Admit Date: 09/10/2017 1:44:00 PM Patient Name: Samir Chan Visit Number: [id number] Discharge Date: 09/11/17 ATTENTION: The Clinical Documentation Specialists (CDI) and [facility] Coding Staff appreciate your assistance in clarifying documentation. Please respond to the clarification below the line at the bottom and electronically sign. The CDI & [facility] Coding staff will review the response and follow-up if needed. Please note: Queries are made part of the Legal Health Record. If you have any questions, please contact the author of this message via ITS. Dr. Phillip Martinez CHF is documented in the past medical history throughout the chart. History/Risk Factors: The patient has a history of hypertension, cardiomyopathy , chronic kidney disease and is a smoker. Echocardiogram Results: Overall left ventricular systolic function is moderately impaired with an EF between 35 - 40%. Chest X Ray: No active cardiopulmonary disease. Treatment: On home Lasix 40 mg PO daily. In your professional opinion, can you please clarify the type of CHF if known? Systolic Heart Failure: Diastolic Heart Failure: Systolic & Diastolic Heart Failure: Unable to Determine Other, please specify MTDD
--- NOTE | 2017-09-13 17:58 | CDI ---
Last Revision, March 2017 Documentation Clarification Form Date: From: Lindsey Moss Phone: Admit Date: 09/10/2017 1:44:00 PM Patient Name: Samir Chan Visit Number: [id number] Discharge Date: ATTENTION: The Clinical Documentation Specialists (CDI) and [facility] Coding Staff appreciate your assistance in clarifying documentation. Please respond to the clarification below the line at the bottom and electronically sign. The CDI & [facility] Coding staff will review the response and follow-up if needed. Please note: Queries are made part of the Legal Health Record. If you have any questions, please contact the author of this message via ITS. Dr. Julianne Gruber Acute encephalopathy is documented in the discharge summary. History/Risk factors: Patient has a history of CHF, diabetes, hypertension, and chronic kidney disease. Clinical Indicators: Altered mental status. EEG: Showed evidence of mild encephalopathy CT/MRI Brain: No acute intracranial abnormality. Consults: Multifactorial encephalopathy documented in Dr. Grimes's consult note In your professional opinion, can you please clarify the specific type of encephalopathy, if known? Hypertensive Encephalopathy Metabolic Encephalopathy Toxic Encephalopathy, if indicated, please clarify: Other, please specify Unable to determine Metabolic Encephalopathy Julianne WINTER
== END 2017-09-11 13:03 | disposition home or self-care (01) | DRG 682 ==
LOC: EC 01:12 → 6SEL 04:28 → OBSVTOIN 09-10 13:44 → 4MS4W 09-10 19:09
PROVIDERS: ADMIT Hospitalist; ATTEND Hospitalist
DX: N17.9 Acute kidney failure, unspecified (principal); G93.41 Metabolic encephalopathy; I13.0 Hypertensive heart and chronic kidney disease with heart failure and stage 1 through stage 4 chronic kidney disease, or unspecified chronic kidney disease; I42.9 Cardiomyopathy, unspecified; L03.115 Cellulitis of right lower limb; N39.0 Urinary tract infection, site not specified; N18.3 Chronic kidney disease, stage 3 (moderate); D64.9 Anemia, unspecified; E11.65 Type 2 diabetes mellitus with hyperglycemia; E11.649 Type 2 diabetes mellitus with hypoglycemia without coma; E11.22 Type 2 diabetes mellitus with diabetic chronic kidney disease; E78.5 Hyperlipidemia, unspecified; E86.0 Dehydration; F17.200 Nicotine dependence, unspecified, uncomplicated; I25.10 Atherosclerotic heart disease of native coronary artery without angina pectoris; I70.0 Atherosclerosis of aorta; K21.9 Gastro-esophageal reflux disease without esophagitis; R32 Unspecified urinary incontinence; R77.9 Abnormality of plasma protein, unspecified; Z79.899 Other long term (current) drug therapy; Z79.4 Long term (current) use of insulin; Z79.82 Long term (current) use of aspirin; Z95.0 Presence of cardiac pacemaker; Z87.440 Personal history of urinary (tract) infections; Z86.73 Personal history of transient ischemic attack (TIA), and cerebral infarction without residual deficits; I50.9 Heart failure, unspecified
CPT/HCPCS: 36415; 70450; 71046; 80048; 80053; 80061; 80178; 81001; 82550; 82553; 84484; 85025; 85610; 85730; 87040; 93005; 93306; 93970; 95819; 96360; 96361; 99285

== ENCOUNTER 2017-10-26 00:08 | Inpatient (IN) | payer MEDICARE ==
[2017-10-26] MEDS ORDERED: ACETAMINOPHEN TAB 500 MG TAB PO STA (00:21)
[2017-10-26 00:25] LABS: Glucose,Whole Blood 160 mg/dL (75-99)
[2017-10-26 00:32] LABS: Basophils % (A) 0 %; Eosinophils # (A) 0.2 k/uL (0-0.7); Eosinophils % (A) 1 %; Lymphocytes # (A) 1.4 k/uL (1.0-4.8); Lymphocytes % (A) 9 %; MCH 30.5 pg (25.0-35.0); MCHC 33.2 g/dL (31.0-37.0); MCV 91.9 fL (80.0-100.0); Mean Platelet Volume 6.5; Monocytes # (A) 0.7 k/uL (0-1.0); Monocytes % (A) 5 %; Neutrophils # (A) 12.3 k/uL (1.3-7.7); Neutrophils % (A) 83 %; Platelet Count 252 k/uL (150-450); RBC 3.92 m/uL (4.30-5.90); RDW 13.3 % (11.5-15.5); WBC 14.8 k/uL (3.8-10.6)
[2017-10-26] MEDS: SODIUM CHLORIDE 0.9% 500 ML IV SCH ×2 (00:33→01:17)
--- NOTE | 2017-10-26 00:35 | ED ---
Altered Mental Status HPI - General Source: EMS Mode of arrival: EMS Limitations: no limitations <Lionel Jo - Last Filed: 10/26/17 00:33> <Marielle Mcbride - Last Filed: 10/26/17 04:22> - General Chief Complaint: Altered Mental Status Stated Complaint: Altered mental status Time Seen by Provider: 10/26/17 00:19 - History of Present Illness Initial Comments: This is a 72-year-old male with a history of TIA, diabetes, heart failure who presents emergent department for mental status changes. The patient is a poor historian however the states that she noticed that he was having more confusion than normal. Noticed that he was not acting right so she brought to the emergency department. The patient states that he "just feels lousy ". He states that he does not have any chest pain or shortness of breath however he has had a mild cough. He denies any dysuria or hematuria. Denies any nausea, vomiting, or diarrhea. No other acute complaints. Of note the patient was recently hospitalized approximately one month ago for similar complaints and was found to be dehydrated with acute kidney injury and have elevated troponins. (Lionel Jo) - Related Data Home Medications Medication Instructions Recorded Confirmed Armodafinil [Nuvigil] 150 mg PO HS 01/11/15 10/26/17 Aspirin 81 mg PO HS 01/11/15 10/26/17 Atorvastatin [Lipitor] 40 mg PO HS 01/11/15 10/26/17 Carvedilol [Coreg] 3.125 mg PO BID 01/11/15 10/26/17 Ferrous Sulfate [Iron (65 MG 325 mg PO DAILY@1200 01/11/15 10/26/17 Elemental)] Insulin Aspart [NovoLOG] See Protocol SQ AC-TID 01/11/15 10/26/17 Insulin Detemir [Levemir] 47 unit SQ BID 01/11/15 10/26/17 Irbesartan [Avapro] 75 mg PO W/SUPPER 01/11/15 10/26/17 [place] Carbonate [[place] 300 mg PO DAILY 01/11/15 10/26/17 Carbonate ER] metFORMIN HCL [Glucophage] 500 mg PO BID 01/11/15 10/26/17 Calcium Carbonate/Vitamin D3 1 tab PO DAILY@1200 09/08/17 10/26/17 [Calcium 500-Vit D3 200 Tablet] Cilostazol [Pletal] 50 mg PO BID 09/08/17 10/26/17 Famotidine [Pepcid] 20 mg PO HS 09/08/17 10/26/17 Spironolactone [Aldactone] 12.5 mg PO DAILY@1200 09/08/17 10/26/17 Previous Rx's Medication Instructions Recorded Furosemide [Lasix] 40 mg PO DAILY #30 tablet 01/14/15 SILVER sulfADIAZINE Cream 1 applic TOPICAL DAILY #50 gm 01/14/15 [Silvadene 1% Cream] Allergies Allergy/AdvReac Type Severity Reaction Status Date / Time No Known Allergies Allergy Verified 09/08/17 08:03 Review of Systems ROS Other: All systems not noted in ROS Statement are negative. <Loinel Jo - Last Filed: 10/26/17 00:33> ROS Other: All systems not noted in ROS Statement are negative. <Marielle Mcbride P - Last Filed: 10/26/17 04:22> ROS Statement: Those systems with pertinent positive or pertinent negative responses have been documented in the HPI. Past Medical History Past Medical History: Heart Failure, CVA/TIA, Diabetes Mellitus, Hyperlipidemia , Hypertension Additional Past Medical History / Comment(s): Missing ring finger on right hand History of Any Multi-Drug Resistant Organisms: None Reported Past Surgical History: Pacemaker Additional Past Surgical History / Comment(s): carotid artery surgery Past Anesthesia/Blood Transfusion Reactions: No Reported Reaction Type of Cardiac Device: Permanent Pacemaker Device Placement Date:: 2009 Past Psychological History: No Psychological Hx Reported Smoking Status: Current every day smoker Past Alcohol Use History: None Reported Past Drug Use History: None Reported - Past Family History Mother Family Medical History: Cancer Brother(s) Family Medical History: Cancer <Lionel Jo - Last Filed: 10/26/17 00:33> General Exam Limitations: no limitations <Lionel Jo - Last Filed: 10/26/17 00:33> <Marielle Mcbride P - Last Filed: 10/26/17 04:22> - General Exam Comments Initial Comments: Constitutional: Awake alert Appears comfortable Head: Normocephalic atraumatic Eyes: no conjunctival injection No scleral icterus EOMI Neck: No JVD Supple Heart: Regular rate rhythm normal S1-S2 no murmurs Lungs: Clear to auscultation bilaterally No wheezing bibasilar rales Abdomen: Soft nondistended nontender Extremities: Non edematous DP pulses intact Radial pulses intact, chronic right lower extremity venous stasis changes Neuro: A&Ox3 No focal neurologic deficits Psych: Appropriate mood and affect (Lionel Jo) Course <Lionel Jo - Last Filed: 10/26/17 00:33> <Marielle Mcbride - Last Filed: 10/26/17 04:22> Vital Signs 10/26/17 10/26/17 10/26/17 00:10 01:34 01:36 Temperature 101.3 F H 99.2 F Pulse Rate 87 79 Respiratory 22 20 22 Rate Blood Pressure 118/66 103/52 O2 Sat by Pulse 92 L 96 Oximetry 10/26/17 02:51 Temperature Pulse Rate 76 Respiratory 20 Rate Blood Pressure 103/59 O2 Sat by Pulse 99 Oximetry - Reevaluation(s) Reevaluation #1: 10/26/17 00:34 EKG is showing paced rhythm with a rate of 86. There is no abnormal ST segment changes or T-wave inversions. QTC 548. (Lionel Jo) Medical Decision Making <Lionel Jo - Last Filed: 10/26/17 00:33> - Lab Data Result diagrams: 10/26/17 00:15 10/26/17 00:15 <Marielle Mcbride - Last Filed: 10/26/17 04:22> - Medical Decision Making Patient care was initiated by Dr. Jo who evaluated the patient and ordered a sepsis workup, patient care was signed out to me pending labs Dr. Jo ordered a 2 L IV fluid bolus as the patient was febrile and tachycardic Chest x-ray does reveal possible congestive heart failure with evidence of fluid overload - patient was not hypotensive, no lactic acidosis was noted at this time do not feel he warrants a 30 mL per KG fluid bolus. Labs consistent with sepsis secondary to urinary tract infection. A urine culture was ordered and IV Rocephin was given. Troponin was elevated, however the patient has recently undergone a cardiac workup with no significant findings. Today the patient is not parents any chest pain, pressure or palpitations. I suspect that this is a type II in STEMI secondary to supply demand mismatch due to his acute illness. I do not feel there is any indication for heparinization at this time. Patient and updated on plan for admission and are agreeable Admission orders placed (Chuckie Mcbridesspaulo Auguste) - Lab Data Lab Results 10/26/17 10/26/17 10/26/17 Range/Units 00:15 00:15 00:15 WBC 14.8 H (3.8-10.6) k/uL RBC 3.92 L (4.30-5.90) m/uL Hgb 12.0 L (13.0-17.5) gm/dL Hct 36.0 L (39.0-53.0) % MCV 91.9 (80.0-100.0) fL MCH 30.5 (25.0-35.0) pg MCHC 33.2 (31.0-37.0) g/dL RDW 13.3 (11.5-15.5) % Plt Count 252 (150-450) k/uL Neutrophils % 83 % Lymphocytes % 9 % Monocytes % 5 % Eosinophils % 1 % Basophils % 0 % Neutrophils # 12.3 H (1.3-7.7) k/uL Lymphocytes # 1.4 (1.0-4.8) k/uL Monocytes # 0.7 (0-1.0) k/uL Eosinophils # 0.2 (0-0.7) k/uL Basophils # 0.0 (0-0.2) k/uL PT (9.0-12.0) sec INR (<1.2) APTT (22.0-30.0) sec Sodium 137 (137-145) mmol/L Potassium 4.5 (3.5-5.1) mmol/L Chloride 104 (98-107) mmol/L Carbon Dioxide 26 (22-30) mmol/L Anion Gap 7 mmol/L BUN 33 H (9-20) mg/dL Creatinine 1.40 H (0.66-1.25) mg/dL Est GFR (CKD-EPI)AfAm 57 (>60 ml/min/1.73 sqM) Est GFR (CKD-EPI)NonAf 49 (>60 ml/min/1.73 sqM) Glucose 154 H (74-99) mg/dL POC Glucose (mg/dL) (75-99) mg/dL POC Glu Clinical Program Director ID Plasma Lactic Acid Josias (0.7-2.0) mmol/L Calcium 9.9 (8.4-10.2) mg/dL Total Bilirubin 0.5 (0.2-1.3) mg/dL AST 15 L (17-59) U/L ALT 30 (21-72) U/L Alkaline Phosphatase 65 (38-126) U/L Total Creatine Kinase 27 L (55-170) U/L CK-MB (CK-2) 1.1 (0.0-2.4) ng/mL CK-MB (CK-2) Rel Index 4.1 Troponin I 0.116 H* (0.000-0.034) ng/mL Total Protein 6.3 (6.3-8.2) g/dL Albumin 3.8 (3.5-5.0) g/dL Urine Color Urine Appearance (Clear) Urine pH (5.0-8.0) Ur Specific [place] (1.001-1.035) Urine Protein (Negative) Urine Glucose (UA) (Negative) Urine Ketones (Negative) Urine Blood (Negative) Urine Nitrite (Negative) Urine Bilirubin (Negative) Urine Urobilinogen (<2.0) mg/dL Ur Leukocyte Esterase (Negative) Urine RBC (0-5) /hpf Urine WBC (0-5) /hpf Urine Bacteria (None) /hpf Urine Mucus (None) /hpf 10/26/17 10/26/17 10/26/17 Range/Units 00:15 00:15 00:18 WBC (3.8-10.6) k/uL RBC (4.30-5.90) m/uL Hgb (13.0-17.5) gm/dL Hct (39.0-53.0) % MCV (80.0-100.0) fL MCH (25.0-35.0) pg MCHC (31.0-37.0) g/dL RDW (11.5-15.5) % Plt Count (150-450) k/uL Neutrophils % % Lymphocytes % % Monocytes % % Eosinophils % % Basophils % % Neutrophils # (1.3-7.7) k/uL Lymphocytes # (1.0-4.8) k/uL Monocytes # (0-1.0) k/uL Eosinophils # (0-0.7) k/uL Basophils # (0-0.2) k/uL PT 9.9 (9.0-12.0) sec INR 1.0 (<1.2) APTT 22.5 (22.0-30.0) sec Sodium (137-145) mmol/L Potassium (3.5-5.1) mmol/L Chloride (98-107) mmol/L Carbon Dioxide (22-30) mmol/L Anion Gap mmol/L BUN (9-20) mg/dL Creatinine (0.66-1.25) mg/dL Est GFR (CKD-EPI)AfAm (>60 ml/min/1.73 sqM) Est GFR (CKD-EPI)NonAf (>60 ml/min/1.73 sqM) Glucose (74-99) mg/dL POC Glucose (mg/dL) 160 H (75-99) mg/dL POC Glu Clinical Program Director Lionel Cota Plasma Lactic Acid Josias 0.9 (0.7-2.0) mmol/L Calcium (8.4-10.2) mg/dL Total Bilirubin (0.2-1.3) mg/dL AST (17-59) U/L ALT (21-72) U/L Alkaline Phosphatase (38-126) U/L Total Creatine Kinase (55-170) U/L CK-MB (CK-2) (0.0-2.4) ng/mL CK-MB (CK-2) Rel Index Troponin I (0.000-0.034) ng/mL Total Protein (6.3-8.2) g/dL Albumin (3.5-5.0) g/dL Urine Color Urine Appearance (Clear) Urine pH (5.0-8.0) Ur Specific [place] (1.001-1.035) Urine Protein (Negative) Urine Glucose (UA) (Negative) Urine Ketones (Negative) Urine Blood (Negative) Urine Nitrite (Negative) Urine Bilirubin (Negative) Urine Urobilinogen (<2.0) mg/dL Ur Leukocyte Esterase (Negative) Urine RBC (0-5) /hpf Urine WBC (0-5) /hpf Urine Bacteria (None) /hpf Urine Mucus (None) /hpf 10/26/17 Range/Units 02:44 WBC (3.8-10.6) k/uL RBC (4.30-5.90) m/uL Hgb (13.0-17.5) gm/dL Hct (39.0-53.0) % MCV (80.0-100.0) fL MCH (25.0-35.0) pg MCHC (31.0-37.0) g/dL RDW (11.5-15.5) % Plt Count (150-450) k/uL Neutrophils % % Lymphocytes % % Monocytes % % Eosinophils % % Basophils % % Neutrophils # (1.3-7.7) k/uL Lymphocytes # (1.0-4.8) k/uL Monocytes # (0-1.0) k/uL Eosinophils # (0-0.7) k/uL Basophils # (0-0.2) k/uL PT (9.0-12.0) sec INR (<1.2) APTT (22.0-30.0) sec Sodium (137-145) mmol/L Potassium (3.5-5.1) mmol/L Chloride (98-107) mmol/L Carbon Dioxide (22-30) mmol/L Anion Gap mmol/L BUN (9-20) mg/dL Creatinine (0.66-1.25) mg/dL Est GFR (CKD-EPI)AfAm (>60 ml/min/1.73 sqM) Est GFR (CKD-EPI)NonAf (>60 ml/min/1.73 sqM) Glucose (74-99) mg/dL POC Glucose (mg/dL) (75-99) mg/dL POC Glu Clinical Program Director ID Plasma Lactic Acid Josias (0.7-2.0) mmol/L Calcium (8.4-10.2) mg/dL Total Bilirubin (0.2-1.3) mg/dL AST (17-59) U/L ALT (21-72) U/L Alkaline Phosphatase (38-126) U/L Total Creatine Kinase (55-170) U/L CK-MB (CK-2) (0.0-2.4) ng/mL CK-MB (CK-2) Rel Index Troponin I (0.000-0.034) ng/mL Total Protein (6.3-8.2) g/dL Albumin (3.5-5.0) g/dL Urine Color Yellow Urine Appearance Cloudy (Clear) Urine pH 5.5 (5.0-8.0) Ur Specific [place] 1.012 (1.001-1.035) Urine Protein Trace H (Negative) Urine Glucose (UA) Negative (Negative) Urine Ketones Trace H (Negative) Urine Blood Trace H (Negative) Urine Nitrite Negative (Negative) Urine Bilirubin Negative (Negative) Urine Urobilinogen 2.0 (<2.0) mg/dL Ur Leukocyte Esterase Moderate H (Negative) Urine RBC <1 (0-5) /hpf Urine WBC 33 H (0-5) /hpf Urine Bacteria Occasional H (None) /hpf Urine Mucus Rare H (None) /hpf Disposition <Lionel Jo - Last Filed: 10/26/17 00:33> Decision Time: 01:00 <Marielle Mcbride - Last Filed: 10/26/17 04:22> Clinical Impression: Sepsis, UTI (urinary tract infection) Disposition: ADMITTED IP TO THIS HOSP Condition: Good
[2017-10-26 00:43] LABS: Albumin 3.8 g/dL (3.5-5.0); Calcium 9.9 mg/dL (8.4-10.2); Partial Thromboplastin Time 22.5 sec (22.0-30.0); Potassium 4.5 mmol/L (3.5-5.1); Prothrombin Time 9.9 sec (9.0-12.0); Total Bilirubin 0.5 mg/dL (0.2-1.3); Total Protein 6.3 g/dL (6.3-8.2)
--- NOTE | 2017-10-26 00:59 | XR ---
EXAMINATION TYPE: XR chest 2V DATE OF EXAM: 10/26/2017 COMPARISON: 09/08/2017 HISTORY: Fever TECHNIQUE: Frontal and lateral views of the chest are obtained. FINDINGS: Heart is enlarged. There is some pulmonary vascular congestion. There is left axillary pac emaker with the lead tips in the right ventricle. Thoracic aorta is atheromatous. There is very sligh t blunting of the posterior costophrenic angles on the lateral view. IMPRESSION: There is probably new mild heart failure compared to last exam. No pulmonary consolidati on.
[2017-10-26 01:09] LABS: Creatine Kinase MB 1.1 ng/mL (0.0-2.4)
[2017-10-26 01:10] LABS: Troponin I 0.116 ng/mL (0.000-0.034)
[2017-10-26 02:57] LABS: Appearance,Urine Cloudy (Clear); Bacteria,Urine Occasional /hpf; Bilirubin,Urine Negative (Negative); Blood,Urine Trace (Negative); Color,Urine Yellow; Glucose,Urine (UA) Negative (Negative); Ketones,Urine Trace (Negative); Leukocyte Esterase,Urine Moderate (Negative); Mucus,Urine Rare /hpf; Nitrite,Urine Negative (Negative); PH, Urine 5.5 (5.0-8.0); Protein,Urine Trace (Negative); RBC,Urine <1 /hpf (0-5); Specific Gravity,Urine 1.012 (1.001-1.035); WBC,Urine 33 /hpf (0-5)
[2017-10-26] MEDS ORDERED: cefTRIAXone IN SWFI 1,000 MG/10 ML SYRINGE IVP STA (02:59)
[2017-10-26] MEDS ORDERED: NALOXONE 0.4 MG/ML 1 ML VIAL IV PRN (02:59)
[2017-10-26 08:01] LABS: Glucose,Whole Blood 244 mg/dL (75-99)
[2017-10-26] MEDS: INSULIN ASPART 100 UNIT/ML 1 ML 10 ML VIAL SQ SCH ×4 (08:06→21:55)
[2017-10-26] MEDS: INSULIN DETEMIR 100 UNIT/ML 10 ML VIAL SQ SCH ×2 (08:06→18:15)
[2017-10-26] MEDS: NICOTINE 21MG/24HR PATCH TRANSDERM SCH (08:38)
[2017-10-26 11:52] LABS: Glucose,Whole Blood 136 mg/dL (75-99)
[2017-10-26 12:45] LABS: Hemoglobin A1C 7.3 % (4.0-6.0)
[2017-10-26] MEDS: FUROSEMIDE 40 MG TAB PO SCH (13:17)
--- NOTE | 2017-10-26 14:53 | P.HPIM ---
History of Present Illness 73-year-old gentleman with the history of TIA and the probable baseline dementia which was never diagnosed in the past came in with complaints of confusion patient has been feeling weak and more confused than his baseline is confusion issues has been going on for about 2-3 months has an appointment with neurology as an outpatient but does since last to 3 days it's much worse patient is found to have fever anemia with abnormal urine because of which patient is admitted for urinary tract infection although patient denied any symptoms of UTI patient is bit confused but able to provide me appropriate history more patient appears to be more weak and lethargic. Patient is a multiple other medical problems including congestive heart failure chronic systolic dysfunction presently not in acute exacerbation patient doesn't have any elevated JVD chest x-ray showing some pulmonary edema patient has poor renal function with baseline creatinine 1.2 - 1.4 Review of Systems REVIEW OF SYSTEMS: CONSTITUTIONAL: No fever, no malaise, no fatigue. HEENT: No recent visual problems or hearing problems. Denied any sore throat. CARDIOVASCULAR: No chest pain, orthopnea, PND, no palpitations, no syncope. PULMONARY: No shortness of breath, no cough, no hemoptysis. GASTROINTESTINAL: No diarrhea, no nausea, no vomiting, no abdominal pain. Normoactive bowel sounds. NEUROLOGICAL: No headaches, no weakness, no numbness. HEMATOLOGICAL: Denies any bleeding or petechiae. GENITOURINARY: Denies any burning micturition, frequency, or urgency. MUSCULOSKELETAL/RHEUMATOLOGICAL: Denies any joint pain, swelling, or any muscle pain. ENDOCRINE: Denies any polyuria or polydipsia. The rest of the 14-point review of systems is negative. Past Medical History Past Medical History: Heart Failure, CVA/TIA, Diabetes Mellitus, Hyperlipidemia , Hypertension Additional Past Medical History / Comment(s): Missing ring finger on right hand History of Any Multi-Drug Resistant Organisms: None Reported Past Surgical History: Pacemaker Additional Past Surgical History / Comment(s): carotid artery surgery Past Anesthesia/Blood Transfusion Reactions: No Reported Reaction Type of Cardiac Device: Permanent Pacemaker Device Placement Date:: 2009 Past Psychological History: No Psychological Hx Reported Smoking Status: Current every day smoker Past Alcohol Use History: None Reported Past Drug Use History: None Reported - Past Family History Mother Family Medical History: Cancer Brother(s) Family Medical History: Cancer Medications and Allergies Home Medications Medication Instructions Recorded Confirmed Type Armodafinil [Nuvigil] 150 mg PO HS 01/11/15 10/26/17 History Aspirin 81 mg PO HS 01/11/15 10/26/17 History Atorvastatin [Lipitor] 40 mg PO HS 01/11/15 10/26/17 History Carvedilol [Coreg] 3.125 mg PO BID 01/11/15 10/26/17 History Ferrous Sulfate [Iron (65 MG 325 mg PO AC-LUNCH 01/11/15 10/26/17 History Elemental)] Insulin Aspart [NovoLOG] See Protocol SQ AC-TID 01/11/15 10/26/17 History Insulin Detemir [Levemir] 47 unit SQ BID 01/11/15 10/26/17 History Irbesartan [Avapro] 75 mg PO AC-SUPPER 01/11/15 10/26/17 History [place] Carbonate [[place] 300 mg PO DAILY 01/11/15 10/26/17 History Carbonate ER] metFORMIN HCL [Glucophage] 500 mg PO BID 01/11/15 10/26/17 History Furosemide [Lasix] 40 mg PO DAILY #30 tablet 01/14/15 10/26/17 Rx SILVER sulfADIAZINE Cream 1 applic TOPICAL DAILY #50 gm 01/14/15 10/26/17 Rx [Silvadene 1% Cream] Calcium Carbonate/Vitamin D3 1 tab PO AC-LUNCH 09/08/17 10/26/17 History [Calcium 500-Vit D3 200 Tablet] Cilostazol [Pletal] 50 mg PO BID 09/08/17 10/26/17 History Famotidine [Pepcid] 20 mg PO HS 09/08/17 10/26/17 History Spironolactone [Aldactone] 12.5 mg PO AC-LUNCH 09/08/17 10/26/17 History Brimonidine Tartrate/Timolol 1 drop RIGHT EYE BID 10/26/17 10/26/17 History [[place] 0.2%-0.5% Eye Drops] Allergies Allergy/AdvReac Type Severity Reaction Status Date / Time No Known Allergies Allergy Verified 10/26/17 08:11 Physical Exam Vitals: Vital Signs Temp Pulse Pulse Resp BP BP Pulse Ox 10/26/17 07:30 98.5 F 80 20 103/48 94 L 10/26/17 04:42 98.9 F 78 18 121/54 92 L 10/26/17 04:21 74 20 109/51 98 10/26/17 02:51 76 20 103/59 99 10/26/17 01:36 22 10/26/17 01:34 99.2 F 79 20 103/52 96 10/26/17 00:10 101.3 F H 87 22 118/66 92 L Intake and Output 10/25/17 10/26/17 10/26/17 22:59 06:59 14:59 Intake Total 1999 Balance 1999 Intake: Amount of Fluid Infused ( 2000 ml) Other: Weight 93.667 kg PHYSICAL EXAMINATION: GENERAL: The patient is alert and oriented x2-3, not in any acute distress. Well developed, well nourished. Appears weak HEENT: Pupils are round and equally reacting to light. EOMI. No scleral icterus. No conjunctival pallor. Normocephalic, atraumatic. No pharyngeal erythema. No thyromegaly. CARDIOVASCULAR: S1 and S2 present. No murmurs, rubs, or gallops. PULMONARY: Chest is clear to auscultation, no wheezing or crackles. ABDOMEN: Soft, nontender, nondistended, normoactive bowel sounds. No palpable organomegaly. MUSCULOSKELETAL: No joint swelling or deformity. EXTREMITIES: No cyanosis, clubbing, or pedal edema. NEUROLOGICAL: Gross neurological examination did not reveal any focal deficits. Does have significant generalized weakness. SKIN: No rashes. Results CBC & Chem 7: 10/26/17 00:15 10/26/17 00:15 Labs: Abnormal Lab Results - Last 24 Hours (Table) 10/26/17 10/26/17 10/26/17 Range/Units 00:15 00:15 00:15 WBC 14.8 H (3.8-10.6) k/uL RBC 3.92 L (4.30-5.90) m/uL Hgb 12.0 L (13.0-17.5) gm/dL Hct 36.0 L (39.0-53.0) % Neutrophils # 12.3 H (1.3-7.7) k/uL BUN 33 H (9-20) mg/dL Creatinine 1.40 H (0.66-1.25) mg/dL Glucose 154 H (74-99) mg/dL POC Glucose (mg/dL) (75-99) mg/dL AST 15 L (17-59) U/L Total Creatine Kinase 27 L (55-170) U/L Troponin I 0.116 H* (0.000-0.034) ng/mL Urine Protein (Negative) Urine Ketones (Negative) Urine Blood (Negative) Ur Leukocyte Esterase (Negative) Urine WBC (0-5) /hpf Urine Bacteria (None) /hpf Urine Mucus (None) /hpf 10/26/17 10/26/17 10/26/17 Range/Units 00:18 02:44 07:56 WBC (3.8-10.6) k/uL RBC (4.30-5.90) m/uL Hgb (13.0-17.5) gm/dL Hct (39.0-53.0) % Neutrophils # (1.3-7.7) k/uL BUN (9-20) mg/dL Creatinine (0.66-1.25) mg/dL Glucose (74-99) mg/dL POC Glucose (mg/dL) 160 H 244 H (75-99) mg/dL AST (17-59) U/L Total Creatine Kinase (55-170) U/L Troponin I (0.000-0.034) ng/mL Urine Protein Trace H (Negative) Urine Ketones Trace H (Negative) Urine Blood Trace H (Negative) Ur Leukocyte Esterase Moderate H (Negative) Urine WBC 33 H (0-5) /hpf Urine Bacteria Occasional H (None) /hpf Urine Mucus Rare H (None) /hpf 10/26/17 Range/Units 11:50 WBC (3.8-10.6) k/uL RBC (4.30-5.90) m/uL Hgb (13.0-17.5) gm/dL Hct (39.0-53.0) % Neutrophils # (1.3-7.7) k/uL BUN (9-20) mg/dL Creatinine (0.66-1.25) mg/dL Glucose (74-99) mg/dL POC Glucose (mg/dL) 136 H (75-99) mg/dL AST (17-59) U/L Total Creatine Kinase (55-170) U/L Troponin I (0.000-0.034) ng/mL Urine Protein (Negative) Urine Ketones (Negative) Urine Blood (Negative) Ur Leukocyte Esterase (Negative) Urine WBC (0-5) /hpf Urine Bacteria (None) /hpf Urine Mucus (None) /hpf Microbiology - Last 24 Hours (Table) 10/26/17 02:44 Urine Culture - Preliminary Urine,Catheterized Thrombosis Risk Factor Assmnt - Choose All That Apply Any of the Below Risk Factors Present?: Yes Each Factor Represents 1 point: Acute DE, Obesity (BMI >25) Other Risk Factors: Yes Each Risk Factor Represents 2 Points: Age 61-74 years Other congenital or acquired thrombophilia - If yes, enter type in comment: No Thrombosis Risk Factor Assessment Total Risk Factor Score: 4 Thrombosis Risk Factor Assessment Level: Moderate Risk Assessment and Plan Plan: Altered mental status: Secondary to toxic encephalopathy: Probably from urinary tract infection patient is on Rocephin which will be continued awaiting urine cultures. -Probable dementia, generalized weakness and generalized deconditioning: PT and OT consultation. Patient will follow with neurology as an outpatient which she can get Mini-Mental Status exam. 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 -Sepsis secondary to urinary tract infection -Type 2 diabetes mellitus: Sliding scale insulin -Hypertension
[2017-10-26 17:27] LABS: Glucose,Whole Blood 238 mg/dL (75-99)
[2017-10-26] MEDS ORDERED: INSULIN ASPART 100 UNIT/ML 1 ML 10 ML VIAL SQ SCH (17:30)
[2017-10-26] MEDS: ARMODAFINIL 150 MG PO SCH (21:21)
[2017-10-26] MEDS: CILOSTAZOL 100 MG TAB PO SCH (21:22)
[2017-10-26] MEDS: ASPIRIN 81 MG PO SCH (21:22)
[2017-10-26] MEDS: FAMOTIDINE 20 MG TAB PO SCH (21:22)
[2017-10-26] MEDS: ATORVASTATIN 40 MG TAB PO SCH (21:22)
[2017-10-26] MEDS: CARVEDILOL 3.125 MG TAB PO SCH (21:22)
[2017-10-26 21:24] LABS: Glucose,Whole Blood 252 mg/dL (75-99)
[2017-10-26] MEDS: BRIMONIDINE TARTRATE 0.2% DROPS 5 ML BTL RIGHT EYE SCH (21:55)
[2017-10-26] MEDS: TIMOLOL 0.5% OPHTH DROPS 5 ML BTL RIGHT EYE SCH (21:55)
[2017-10-27 07:10] LABS: Glucose,Whole Blood 67 mg/dL (75-99)
[2017-10-27 07:40] LABS: Glucose,Whole Blood 68 mg/dL (75-99)
[2017-10-27 07:58] LABS: Glucose,Whole Blood 94 mg/dL (75-99)
[2017-10-27] MEDS: NICOTINE 21MG/24HR PATCH TRANSDERM SCH (09:15)
[2017-10-27] MEDS: CILOSTAZOL 100 MG TAB PO SCH ×2 (09:15→20:33)
[2017-10-27] MEDS: CARVEDILOL 3.125 MG TAB PO SCH ×2 (09:16→20:36)
[2017-10-27] MEDS: FUROSEMIDE 40 MG TAB PO SCH (09:16)
[2017-10-27] MEDS: INSULIN ASPART 100 UNIT/ML 1 ML 10 ML VIAL SQ SCH ×4 (09:16→20:34)
[2017-10-27] MEDS: BRIMONIDINE TARTRATE 0.2% DROPS 5 ML BTL RIGHT EYE SCH ×2 (09:16→20:32)
[2017-10-27] MEDS: TIMOLOL 0.5% OPHTH DROPS 5 ML BTL RIGHT EYE SCH ×2 (09:16→20:36)
[2017-10-27] MEDS: FERROUS SULFATE 325 MG TAB PO SCH (09:16)
[2017-10-27] MEDS: SPIRONOLACTONE 25 MG TAB PO SCH (09:17)
[2017-10-27] MEDS: INSULIN DETEMIR 100 UNIT/ML 10 ML VIAL SQ SCH ×2 (09:19→17:36)
[2017-10-27 09:40] LABS: HCT 34.9 % (39.0-53.0); MCH 29.6 pg (25.0-35.0); MCHC 31.4 g/dL (31.0-37.0); MCV 94.3 fL (80.0-100.0); Mean Platelet Volume 6.6; Platelet Count 244 k/uL (150-450); RDW 13.3 % (11.5-15.5); WBC 12.9 k/uL (3.8-10.6)
[2017-10-27 09:54] LABS: Potassium 4.2 mmol/L (3.5-5.1)
[2017-10-27 10:27] VITALS: RESP 16
[2017-10-27 11:40] LABS: Glucose,Whole Blood 323 mg/dL (75-99)
--- NOTE | 2017-10-27 16:22 | P.PN ---
Subjective Patient is admitted with altered mental status secondary to possible urinary tract infection patient mental status has significant improvement patient is clinically doing well awaiting urine cultures possibility of discharge tomorrow. Constitutional: Denied any fatigue denied any fever. Cardio vascular: denied any chest pain, palpitations Gastrointestinal denied any nausea vomiting Pulmonary: Denied any shortness of breath cough Neurologic denied any new focal deficits Objective - Vital Signs Vital signs: Vital Signs Temp 98.9 F 10/27/17 15:00 Pulse 74 10/27/17 15:00 Resp 16 10/27/17 15:09 BP 115/60 10/27/17 15:00 Pulse Ox 96 10/27/17 15:00 Intake & Output 10/26/17 10/27/17 10/27/17 18:59 06:59 18:59 Weight 93.667 kg Other: # Voids 3 2 4 # Bowel Movements 0 - Exam PHYSICAL EXAMINATION: GENERAL: The patient is alert and oriented x3, not in any acute distress. Well developed, well nourished. Appears weak HEENT: Pupils are round and equally reacting to light. EOMI. No scleral icterus. No conjunctival pallor. Normocephalic, atraumatic. No pharyngeal erythema. No thyromegaly. CARDIOVASCULAR: S1 and S2 present. No murmurs, rubs, or gallops. PULMONARY: Chest is clear to auscultation, no wheezing or crackles. ABDOMEN: Soft, nontender, nondistended, normoactive bowel sounds. No palpable organomegaly. MUSCULOSKELETAL: No joint swelling or deformity. EXTREMITIES: No cyanosis, clubbing, or pedal edema. NEUROLOGICAL: Gross neurological examination did not reveal any focal deficits. Does have significant generalized weakness. SKIN: No rashes. - Labs CBC & Chem 7: 10/27/17 09:04 10/27/17 09:04 Labs: Abnormal Lab Results - Last 24 Hours (Table) 10/26/17 10/26/17 10/27/17 Range/Units 17:25 21:19 07:07 WBC (3.8-10.6) k/uL RBC (4.30-5.90) m/uL Hgb (13.0-17.5) gm/dL Hct (39.0-53.0) % Chloride (98-107) mmol/L Carbon Dioxide (22-30) mmol/L BUN (9-20) mg/dL Glucose (74-99) mg/dL POC Glucose (mg/dL) 238 H 252 H 67 L (75-99) mg/dL 10/27/17 10/27/17 10/27/17 Range/Units 07:26 09:04 09:04 WBC 12.9 H (3.8-10.6) k/uL RBC 3.70 L (4.30-5.90) m/uL Hgb 11.0 L (13.0-17.5) gm/dL Hct 34.9 L (39.0-53.0) % Chloride 108 H (98-107) mmol/L Carbon Dioxide 21 L (22-30) mmol/L BUN 22 H (9-20) mg/dL Glucose 182 H (74-99) mg/dL POC Glucose (mg/dL) 68 L (75-99) mg/dL 10/27/17 Range/Units 11:37 WBC (3.8-10.6) k/uL RBC (4.30-5.90) m/uL Hgb (13.0-17.5) gm/dL Hct (39.0-53.0) % Chloride (98-107) mmol/L Carbon Dioxide (22-30) mmol/L BUN (9-20) mg/dL Glucose (74-99) mg/dL POC Glucose (mg/dL) 323 H (75-99) mg/dL Microbiology - Last 24 Hours (Table) 10/26/17 02:44 Urine Culture - Preliminary Urine,Catheterized Gram Neg Bacilli 10/26/17 00:15 Blood Culture - Preliminary Blood No Growth after 24 hours Assessment and Plan Plan: Altered mental status: Secondary to toxic encephalopathy: Probably from urinary tract infection patient is on Rocephin which will be continued awaiting urine cultures. Improved -Probable dementia, generalized weakness and generalized deconditioning: PT and OT consultation. Patient will follow with neurology as an outpatient which she can get Mini-Mental Status exam. 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 -Sepsis secondary to urinary tract infection -Type 2 diabetes mellitus: Sliding scale insulin -Hypertension
[2017-10-27 17:15] LABS: Glucose,Whole Blood 593 mg/dL (75-99)
[2017-10-27 17:15] LABS: Glucose,Whole Blood 257 mg/dL (75-99)
[2017-10-27] MEDS ORDERED: cefTRIAXone IN SWFI 1,000 MG/10 ML SYRINGE IVP SCH (20:00)
[2017-10-27 20:23] LABS: Glucose,Whole Blood 309 mg/dL (75-99)
[2017-10-27] MEDS: ARMODAFINIL 150 MG PO SCH (20:26)
[2017-10-27] MEDS: cefTRIAXone IN SWFI 1,000 MG/10 ML SYRINGE IVP SCH (20:32)
[2017-10-27] MEDS: ASPIRIN 81 MG PO SCH (20:33)
[2017-10-27] MEDS: ATORVASTATIN 40 MG TAB PO SCH (20:33)
[2017-10-27] MEDS: FAMOTIDINE 20 MG TAB PO SCH (20:34)
[2017-10-28 07:29] LABS: Glucose,Whole Blood 100 mg/dL (75-99)
[2017-10-28] MEDS: INSULIN ASPART 100 UNIT/ML 1 ML 10 ML VIAL SQ SCH ×2 (07:32→13:10)
[2017-10-28] MEDS: FERROUS SULFATE 325 MG TAB PO SCH (08:24)
[2017-10-28] MEDS: NICOTINE 21MG/24HR PATCH TRANSDERM SCH (08:24)
[2017-10-28] MEDS: cefTRIAXone IN SWFI 1,000 MG/10 ML SYRINGE IVP SCH (08:24)
[2017-10-28] MEDS: SPIRONOLACTONE 25 MG TAB PO SCH (08:24)
[2017-10-28] MEDS: INSULIN DETEMIR 100 UNIT/ML 10 ML VIAL SQ SCH (08:24)
[2017-10-28] MEDS: CARVEDILOL 3.125 MG TAB PO SCH (08:24)
[2017-10-28] MEDS: CILOSTAZOL 100 MG TAB PO SCH (08:24)
[2017-10-28] MEDS: FUROSEMIDE 40 MG TAB PO SCH (08:24)
[2017-10-28] MEDS: BRIMONIDINE TARTRATE 0.2% DROPS 5 ML BTL RIGHT EYE SCH (08:25)
[2017-10-28] MEDS: TIMOLOL 0.5% OPHTH DROPS 5 ML BTL RIGHT EYE SCH (08:25)
[2017-10-28 08:38] LABS: Potassium 4.2 mmol/L (3.5-5.1)
--- NOTE | 2017-10-28 11:35 | P.DS ---
Providers Date of admission: 10/26/17 03:47 Attending physician: Ronna Novak Primary care physician: Aria Zarco Hospital Course: was admitted for toxic encephalopathy secondary to urinary tract infection and patient is E coli which is pansensitive. But patient will be discharged on Ceftin for 7 more days completing 10 day therapy. Lomotil as can cause confusion because of which patient is not this being discharged on fluoroquinolones PHYSICAL EXAMINATION: GENERAL: The patient is alert and oriented x3, not in any acute distress. Well developed, well nourished. Appears weak HEENT: Pupils are round and equally reacting to light. EOMI. No scleral icterus. No conjunctival pallor. Normocephalic, atraumatic. No pharyngeal erythema. No thyromegaly. CARDIOVASCULAR: S1 and S2 present. No murmurs, rubs, or gallops. PULMONARY: Chest is clear to auscultation, no wheezing or crackles. ABDOMEN: Soft, nontender, nondistended, normoactive bowel sounds. No palpable organomegaly. MUSCULOSKELETAL: No joint swelling or deformity. EXTREMITIES: No cyanosis, clubbing, or pedal edema. NEUROLOGICAL: Gross neurological examination did not reveal any focal deficits. Does have significant generalized weakness. SKIN: No rashes. Assessment and Plan Plan: Altered mental status: Secondary to toxic encephalopathy: Secondary to urinary tract infection urine cultures positive for E. coli. -Probable dementia, generalized weakness and generalized deconditioning: PT and OT consultation. Patient is being discharged to subacute rehabilitation patient will need to follow with neurology as scheduled as an outpatient. -Congestive failure chronic systolic dysfunction without any acute exacerbation, -Acute renal failure on chronic kidney disease stage II : Acute renal failure secondary to sepsis which improved -Sepsis secondary to urinary tract infection -Type 2 diabetes mellitus: Sliding scale insulin -Hypertension Patient Condition at Discharge: Good Plan - Discharge Summary Discharge Rx Participant: No New Discharge Prescriptions: Continue Insulin Aspart [NovoLOG] See Protocol SQ AC-TID metFORMIN HCL [Glucophage] 500 mg PO BID Irbesartan [Avapro] 75 mg PO AC-SUPPER Ferrous Sulfate [Iron (65 MG Elemental)] 325 mg PO AC-LUNCH Carvedilol [Coreg] 3.125 mg PO BID Aspirin 81 mg PO HS Atorvastatin [Lipitor] 40 mg PO HS Burney Carbonate [Burney Carbonate ER] 300 mg PO DAILY SILVER sulfADIAZINE Cream [Silvadene 1% Cream] 1 applic TOPICAL DAILY #50 gm Furosemide [Lasix] 40 mg PO DAILY #30 tablet Cilostazol [Pletal] 50 mg PO BID Calcium Carbonate/Vitamin D3 [Calcium 500-Vit D3 200 Tablet] 1 tab PO AC- LUNCH Famotidine [Pepcid] 20 mg PO HS Spironolactone [Aldactone] 12.5 mg PO AC-LUNCH Brimonidine Tartrate/Timolol [Combigan 0.2%-0.5% Eye Drops] 1 drop RIGHT EYE BID Changed Insulin Detemir [Levemir] 42 unit SQ BID #0 Discontinued Armodafinil [Nuvigil] 150 mg PO HS Discharge Medication List Aspirin 81 mg PO HS 01/11/15 [History] Atorvastatin [Lipitor] 40 mg PO HS 01/11/15 [History] Carvedilol [Coreg] 3.125 mg PO BID 01/11/15 [History] Ferrous Sulfate [Iron (65 MG Elemental)] 325 mg PO AC-LUNCH 01/11/15 [History] Insulin Aspart [NovoLOG] See Protocol SQ AC-TID 01/11/15 [History] Irbesartan [Avapro] 75 mg PO AC-SUPPER 01/11/15 [History] Burney Carbonate [Burney Carbonate ER] 300 mg PO DAILY 01/11/15 [History] metFORMIN HCL [Glucophage] 500 mg PO BID 01/11/15 [History] Furosemide [Lasix] 40 mg PO DAILY #30 tablet 01/14/15 [Rx] SILVER sulfADIAZINE Cream [Silvadene 1% Cream] 1 applic TOPICAL DAILY #50 gm 03/19 [Rx] Calcium Carbonate/Vitamin D3 [Calcium 500-Vit D3 200 Tablet] 1 tab PO AC-LUNCH 09/08/17 [History] Cilostazol [Pletal] 50 mg PO BID 09/08/17 [History] Famotidine [Pepcid] 20 mg PO HS 09/08/17 [History] Spironolactone [Aldactone] 12.5 mg PO AC-LUNCH 09/08/17 [History] Brimonidine Tartrate/Timolol [Combigan 0.2%-0.5% Eye Drops] 1 drop RIGHT EYE BID 10/26/17 [History] Insulin Detemir [Levemir] 42 unit SQ BID #0 10/28/17 [Rx] Follow up Appointment(s)/Referral(s): Aria Zarco DO [Primary Care Provider] - 3 Days Discharge Disposition: TRANSFER TO SNF/ECF
[2017-10-28 12:43] LABS: Glucose,Whole Blood 208 mg/dL (75-99)
[2017-10-28 15:23] VITALS: BP 133/63; PULSE 79; TEMP 98.6
== END 2017-10-28 15:46 | DRG 871 ==
LOC: EC 00:08 → 4MS4W 03:47
PROVIDERS: ADMIT Hospitalist; ATTEND Hospitalist
DX: A41.51 Sepsis due to Escherichia coli [E. coli] (principal); G92 Toxic encephalopathy; N39.0 Urinary tract infection, site not specified; I13.0 Hypertensive heart and chronic kidney disease with heart failure and stage 1 through stage 4 chronic kidney disease, or unspecified chronic kidney disease; I50.22 Chronic systolic (congestive) heart failure; N17.9 Acute kidney failure, unspecified; R65.20 Severe sepsis without septic shock; E11.22 Type 2 diabetes mellitus with diabetic chronic kidney disease; E78.5 Hyperlipidemia, unspecified; E86.0 Dehydration; F03.90 Unspecified dementia, unspecified severity, without behavioral disturbance, psychotic disturbance, mood disturbance, and anxiety; F17.200 Nicotine dependence, unspecified, uncomplicated; N18.2 Chronic kidney disease, stage 2 (mild); Z79.4 Long term (current) use of insulin; Z79.82 Long term (current) use of aspirin; Z86.73 Personal history of transient ischemic attack (TIA), and cerebral infarction without residual deficits; Z95.0 Presence of cardiac pacemaker; R53.1 Weakness; Z80.9 Family history of malignant neoplasm, unspecified
CPT/HCPCS: 36415; 71046; 80048; 80053; 80178; 81001; 82550; 82553; 83036; 83605; 83880; 84484; 85025; 85027; 85610; 85730; 87040; 87077; 87086; 87186; 93005; 96361; 96374; 99285

== ENCOUNTER 2017-12-16 15:19 | Inpatient (IN) | payer MEDICARE ==
[2017-12-16] MEDS ORDERED: SODIUM CHLORIDE 0.9% 500 ML IV STA (15:46)
--- NOTE | 2017-12-16 15:52 | ED ---
General Adult HPI - General Chief complaint: Weakness Stated complaint: WEAKNESS Source: patient, family Mode of arrival: EMS Limitations: no limitations - History of Present Illness Initial comments: Dictation was produced using [employer] dictation software. please excuse any grammatical, word or spelling errors. Chief Complaint:-year-old male presents with for generalized weakness, altered mental status and tremulousness. History of Present Illness: Is a 72-year-old male with multiple comorbidities. He has been admitted to the hospital recently. Per patient had UTI sepsis. Review shows that patient has past medical history of heart failure, CVA, diabetes, dyslipidemia and hypertension. Over the past several months patient has been having worsening tremulousness, worsening weakness. Patient was at home where they were having home health come to the house for physical therapy and basic needs. was told by home health team to bring patient to the emergency department if patient becomes worse. Discharge summary shows that patient was admitted for toxic encephalopathy secondary to UTI., CHF exacerbation, acute kidney disease. Patient is unreliable historian at this time. History mostly obtained by was at bedside. The ROS documented in this emergency department record has been reviewed and confirmed by me. Those systems with pertinent positive or negative responses have been documented in the HPI. All other systems are other negative and/or noncontributory. - Related Data Home Medications Medication Instructions Recorded Confirmed Aspirin 81 mg PO HS 01/11/15 12/16/17 Atorvastatin [Lipitor] 40 mg PO HS 01/11/15 12/16/17 Ferrous Sulfate [Iron (65 MG 325 mg PO AC-LUNCH 01/11/15 12/16/17 Elemental)] Insulin Aspart [NovoLOG] See Protocol SQ AC-TID 01/11/15 12/16/17 Progreso Carbonate [Progreso 300 mg PO DAILY 01/11/15 12/16/17 Carbonate ER] metFORMIN HCL [Glucophage] 500 mg PO BID 01/11/15 12/16/17 Cilostazol [Pletal] 50 mg PO BID 09/08/17 12/16/17 Famotidine [Pepcid] 20 mg PO HS 09/08/17 12/16/17 Spironolactone [Aldactone] 12.5 mg PO AC-LUNCH 09/08/17 12/16/17 Armodafinil [Nuvigil] 250 mg PO QAM 12/16/17 12/16/17 Calcium Carbonate [Calcium] 600 mg PO DAILY 12/16/17 12/16/17 Carvedilol [Coreg] 12.5 mg PO BID 12/16/17 12/16/17 Sacubitril/Valsartan [Entresto 24 1 tab PO BID 12/16/17 12/16/17 mg-26 mg Tablet] Previous Rx's Medication Instructions Recorded Furosemide [Lasix] 40 mg PO DAILY #30 tablet 01/14/15 Insulin Detemir [Levemir] 42 unit SQ BID #0 10/28/17 Allergies Allergy/AdvReac Type Severity Reaction Status Date / Time No Known Allergies Allergy Verified 12/16/17 16:06 Review of Systems ROS Statement: Those systems with pertinent positive or pertinent negative responses have been documented in the HPI. ROS Other: All systems not noted in ROS Statement are negative. Past Medical History Past Medical History: Heart Failure, CVA/TIA, Diabetes Mellitus, Hyperlipidemia , Hypertension Additional Past Medical History / Comment(s): Missing ring finger on right hand History of Any Multi-Drug Resistant Organisms: None Reported Past Surgical History: Pacemaker Additional Past Surgical History / Comment(s): carotid artery surgery Past Anesthesia/Blood Transfusion Reactions: No Reported Reaction Type of Cardiac Device: Permanent Pacemaker Device Placement Date:: 2009 Past Psychological History: No Psychological Hx Reported Smoking Status: Current every day smoker Past Alcohol Use History: None Reported Past Drug Use History: None Reported - Past Family History Mother Family Medical History: Cancer Brother(s) Family Medical History: Cancer General Exam - General Exam Comments Initial Comments: PHYSICAL EXAM: General Impression: Alert and oriented, no acute distress HEENT: Normocephalic atraumatic, extra-ocular movements intact, pupils equal and reactive to light bilaterally, dry mucous membranes Cardiovascular: Heart regular rate and rhythm, S1&S2 audible, no murmurs, rubs or gallops Chest: Lungs clear to auscultation bilaterally, no rhonchi, no wheeze, no rales Abdomen: Bowel sounds present, abdomen soft, non-tender, non-distended, no organomegaly, palpable hernia over the anterior left abdomen, patient wearing diapers Musculoskeletal: Pulses present and equal in all extremities, moves all chart was grossly Motor: Power 5/5 bilaterally, no focal deficits noted, cogwheel rigidity Neurological: CN II-XII grossly intact, no focal motor or sensory deficits noted Skin: Intact with no visualized rashes Psych: Normal affect and mood Limitations: no limitations Course Vital Signs 12/16/17 12/16/17 12/16/17 15:27 16:29 17:17 Temperature 97.4 F L Pulse Rate 70 68 68 Respiratory 18 20 20 Rate Blood Pressure 138/58 137/68 142/60 O2 Sat by Pulse 97 95 98 Oximetry Medical Decision Making - Medical Decision Making ED course: 72-year-old male with multiple comorbidities presents with for worsening weakness, concerns of sepsis, tremulousness. Vital signs upon arrival shows some shortness of breath, rest of vital signs within normal limits.Laboratory evaluation obtained. CBC unremarkable. Hemoglobin is 11.6 which is around patient's baseline. Coag panel is unremarkable. Patient has slight increase in his renal markers which would suggest acute kidney injury. Patient is hypocalcemic with ionized calcium of 6.1. Glucose 263. There is no anion gap acidosis. Cardiac enzymes negative, abdominal labs are unremarkable. Pending imaging studies. Patient is sent out to oncoming physician for follow -up of CT brain, x-ray of the chest and urinalysis. Patient given intravenous fluids. EKG interpretation: Ventricular rate 68, MT interval 132, care is 210, QTc 548. No MT prolongation, no QTC prolongation, no ST or T-wave changes noted. EKG compared to 10/26/2017 showing no changes. Overall, this EKG is unremarkable - Lab Data Result diagrams: 12/16/17 16:08 12/16/17 16:08 Lab Results 12/16/17 12/16/17 12/16/17 Range/Units 16:08 16:08 16:08 WBC 8.5 (3.8-10.6) k/uL RBC 3.85 L (4.30-5.90) m/uL Hgb 11.6 L (13.0-17.5) gm/dL Hct 36.2 L (39.0-53.0) % MCV 94.1 (80.0-100.0) fL MCH 30.1 (25.0-35.0) pg MCHC 31.9 (31.0-37.0) g/dL RDW 13.3 (11.5-15.5) % Plt Count 276 (150-450) k/uL Neutrophils % 67 % Lymphocytes % 22 % Monocytes % 5 % Eosinophils % 5 % Basophils % 1 % Neutrophils # 5.6 (1.3-7.7) k/uL Lymphocytes # 1.8 (1.0-4.8) k/uL Monocytes # 0.4 (0-1.0) k/uL Eosinophils # 0.4 (0-0.7) k/uL Basophils # 0.1 (0-0.2) k/uL PT (9.0-12.0) sec INR (<1.2) APTT (22.0-30.0) sec Sodium 141 (137-145) mmol/L Potassium 5.0 (3.5-5.1) mmol/L Chloride 107 (98-107) mmol/L Carbon Dioxide 27 (22-30) mmol/L Anion Gap 7 mmol/L BUN 53 H (9-20) mg/dL Creatinine 2.18 H (0.66-1.25) mg/dL Est GFR (CKD-EPI)AfAm 33 (>60 ml/min/1.73 sqM) Est GFR (CKD-EPI)NonAf 29 (>60 ml/min/1.73 sqM) Glucose 263 H (74-99) mg/dL Plasma Lactic Acid Josias (0.7-2.0) mmol/L Calcium 10.8 H (8.4-10.2) mg/dL Ionized Calcium Sage 6.1 H* (4.5-5.3) mg/dL Phosphorus 3.6 (2.5-4.5) mg/dL Magnesium 2.2 (1.6-2.3) mg/dL Total Bilirubin 0.3 (0.2-1.3) mg/dL AST 13 L (17-59) U/L ALT 24 (21-72) U/L Alkaline Phosphatase 74 (38-126) U/L Total Creatine Kinase 22 L (55-170) U/L CK-MB (CK-2) 1.0 (0.0-2.4) ng/mL CK-MB (CK-2) Rel Index 4.5 Troponin I 0.028 (0.000-0.034) ng/mL Total Protein 6.5 (6.3-8.2) g/dL Albumin 3.7 (3.5-5.0) g/dL TSH 1.550 (0.465-4.680) mIU/L 12/16/17 12/16/17 Range/Units 16:08 16:08 WBC (3.8-10.6) k/uL RBC (4.30-5.90) m/uL Hgb (13.0-17.5) gm/dL Hct (39.0-53.0) % MCV (80.0-100.0) fL MCH (25.0-35.0) pg MCHC (31.0-37.0) g/dL RDW (11.5-15.5) % Plt Count (150-450) k/uL Neutrophils % % Lymphocytes % % Monocytes % % Eosinophils % % Basophils % % Neutrophils # (1.3-7.7) k/uL Lymphocytes # (1.0-4.8) k/uL Monocytes # (0-1.0) k/uL Eosinophils # (0-0.7) k/uL Basophils # (0-0.2) k/uL PT 10.0 (9.0-12.0) sec INR 1.0 (<1.2) APTT 21.6 L (22.0-30.0) sec Sodium (137-145) mmol/L Potassium (3.5-5.1) mmol/L Chloride (98-107) mmol/L Carbon Dioxide (22-30) mmol/L Anion Gap mmol/L BUN (9-20) mg/dL Creatinine (0.66-1.25) mg/dL Est GFR (CKD-EPI)AfAm (>60 ml/min/1.73 sqM) Est GFR (CKD-EPI)NonAf (>60 ml/min/1.73 sqM) Glucose (74-99) mg/dL Plasma Lactic Acid Josias 1.0 (0.7-2.0) mmol/L Calcium (8.4-10.2) mg/dL Ionized Calcium Sage (4.5-5.3) mg/dL Phosphorus (2.5-4.5) mg/dL Magnesium (1.6-2.3) mg/dL Total Bilirubin (0.2-1.3) mg/dL AST (17-59) U/L ALT (21-72) U/L Alkaline Phosphatase (38-126) U/L Total Creatine Kinase (55-170) U/L CK-MB (CK-2) (0.0-2.4) ng/mL CK-MB (CK-2) Rel Index Troponin I (0.000-0.034) ng/mL Total Protein (6.3-8.2) g/dL Albumin (3.5-5.0) g/dL TSH (0.465-4.680) mIU/L Disposition Clinical Impression: ANTHONY (acute kidney injury) Disposition: ADMITTED IP TO THIS HOSP Condition: Fair Referrals: Aria Zarco DO [Primary Care Provider] - 1-2 days Decision Time: 17:27
[2017-12-16 16:22] LABS: Basophils # (A) 0.1 k/uL (0-0.2); Basophils % (A) 1 %; Eosinophils # (A) 0.4 k/uL (0-0.7); Eosinophils % (A) 5 %; HCT 36.2 % (39.0-53.0); HGB 11.6 gm/dL (13.0-17.5); Lymphocytes # (A) 1.8 k/uL (1.0-4.8); Lymphocytes % (A) 22 %; MCH 30.1 pg (25.0-35.0); MCHC 31.9 g/dL (31.0-37.0); MCV 94.1 fL (80.0-100.0); Mean Platelet Volume 7.2; Monocytes # (A) 0.4 k/uL (0-1.0); Monocytes % (A) 5 %; Neutrophils # (A) 5.6 k/uL (1.3-7.7); Neutrophils % (A) 67 %; Platelet Count 276 k/uL (150-450); RBC 3.85 m/uL (4.30-5.90); RDW 13.3 % (11.5-15.5); WBC 8.5 k/uL (3.8-10.6)
[2017-12-16 16:40] LABS: Ionized Calcium 6.1 mg/dL (4.5-5.3)
[2017-12-16 16:45] LABS: Albumin 3.7 g/dL (3.5-5.0); Calcium 10.8 mg/dL (8.4-10.2); Magnesium 2.2 mg/dL (1.6-2.3); Phosphorus 3.6 mg/dL (2.5-4.5); Total Bilirubin 0.3 mg/dL (0.2-1.3); Total Protein 6.5 g/dL (6.3-8.2)
[2017-12-16 16:55] LABS: Partial Thromboplastin Time 21.6 sec (22.0-30.0)
[2017-12-16 16:56] LABS: Troponin I 0.028 ng/mL (0.000-0.034)
[2017-12-16 17:25] LABS: Appearance,Urine Clear (Clear); Bilirubin,Urine Negative (Negative); Blood,Urine Negative (Negative); Color,Urine Yellow; Glucose,Urine (UA) Trace (Negative); Ketones,Urine Negative (Negative); Leukocyte Esterase,Urine Negative (Negative); Nitrite,Urine Negative (Negative); Protein,Urine Trace (Negative); Specific Gravity,Urine 1.012 (1.001-1.035); Urobilinogen,Urine <2.0 mg/dL (<2.0)
--- NOTE | 2017-12-16 18:24 | CT ---
EXAMINATION TYPE: CT brain wo con DATE OF EXAM: 12/16/2017 COMPARISON: 09/08/2017 HISTORY: AMS CT DLP: 1132 mGycm Automated exposure control for dose reduction was used. FINDINGS: There is hypodensity in a large area of the right occipital lobe related to old infarct. This measure s 6 x 3 cm. There is cerebral cortical atrophy. There is no midline shift. There is no evidence of in tracranial hemorrhage. The calvarium is intact. IMPRESSION: CEREBRAL ATROPHY. OLD LARGE RIGHT OCCIPITAL LOBE CORTICAL INFARCT. NO ACUTE INTRACRANIAL ABNORMALITY. NO CHANGE.
--- NOTE | 2017-12-16 18:39 | XR ---
EXAMINATION TYPE: XR chest 2V DATE OF EXAM: 12/16/2017 COMPARISON: NONE HISTORY: Weakness TECHNIQUE: Frontal and lateral views of the chest are obtained. FINDINGS: There is no heart failure nor confluent pneumonic infiltrate. Thoracic aorta is atheromato us. There is left axillary pacemaker with the lead tips in the right ventricle. There is no pleural e ffusion. There are chest leads. There is mild coarsening of the lung markings. IMPRESSION: Mild pulmonary fibrosis. There is clearing of the congestive changes compared to last ex am. No gross heart failure.
[2017-12-16] MEDS ORDERED: NALOXONE 0.4 MG/ML 1 ML VIAL IV PRN (18:42)
[2017-12-16] MEDS ORDERED: ACETAMINOPHEN TAB 325 MG TAB PO PRN (18:42)
[2017-12-16] MEDS: SODIUM CHLORIDE 0.9% 1,000 ML IV SCH (19:52)
[2017-12-16 20:58] LABS: Glucose,Whole Blood 204 mg/dL (75-99)
[2017-12-16] MEDS: CILOSTAZOL 100 MG TAB PO SCH (21:57)
[2017-12-16] MEDS: ATORVASTATIN 40 MG TAB PO SCH (21:57)
[2017-12-16] MEDS: ASPIRIN 81 MG PO SCH (21:57)
[2017-12-16] MEDS: INSULIN DETEMIR 100 UNIT/ML 10 ML VIAL SQ SCH (21:58)
[2017-12-16] MEDS: INSULIN ASPART 100 UNIT/ML 1 ML 10 ML VIAL SQ SCH (21:59)
--- NOTE | 2017-12-16 23:23 | HP ---
HISTORY AND PHYSICAL DATE OF SERVICE: 12/16/2017 CHIEF COMPLAINTS: Weakness and change in mental status. HISTORY OF PRESENT ILLNESS: This 72-year-old gentleman with a past medical history of CHF, CVA, TIA, diabetes mellitus, hypertension, hyperlipidemia, being followed by Dr. Zarco in the outpatient setting, was recently admitted with UTI with sepsis with E coli. The patient improved significantly and the patient went home. But currently the patient is complaining of increasing weakness, diminished p.o. intake as well as some confusion, change in mental status. Patient was admitted to [facility] for further evaluation and treatment. Creatinine was elevated up to 2.18, indicating acute renal failure. The calcium was also increased to 10.8. There is no history of any fever, rigor or chills. No history of headache, loss of consciousness, seizures. PAST MEDICAL HISTORY: 1. Recent UTI. 2. CHF. 3. CVA, TIA. 4. Diabetes mellitus. 5. Hypertension. 6. Hyperlipidemia. 7. Pacemaker. MEDICATIONS: 1. Glucophage 500 mg p.o. b.i.d. 2. Aldactone 12.5 mg before lunch. 3. Entresto one p.o. b.i.d. 4. Sidon carbonate 300 mg daily. 5. Levemir 42 units subcutaneously b.i.d. 6. NovoLog before meals t.i.d. 7. Lasix 40 mg p.o. daily. 8. Iron 320 mg p.o. at lunch. 9. Pepcid 20 mg at bedtime. 10.Pletal 50 mg p.o. b.i.d. 11.Coreg 12.5 mg b.i.d. 12.Calcium 600 mg p.o. daily. 13.Lipitor 40 mg at bedtime. 14.Aspirin 81 mg at bedtime. 15.Nuvigil 250 mg each morning. ALLERGIES: NONE. FAMILY HISTORY: History of cancer in the family. SOCIAL HISTORY: History of smoking on a daily basis. No history of alcohol intake. REVIEW OF SYSTEMS: ENT: Diminished hearing. Diminished vision. CARDIOVASCULAR SYSTEM: No angina, palpitations. RESPIRATORY SYSTEM: No cough, hemoptysis. GI: As mentioned earlier. : As mentioned earlier. NERVOUS SYSTEM: As mentioned earlier. ALLERGY/IMMUNOLOGY: No asthma, hayfever. MUSCULOSKELETAL: As mentioned earlier. HEMATOLOGY/ONCOLOGY: No history of anemia. ENDOCRINE: Diabetes. CONSTITUTIONAL: As mentioned earlier. DERMATOLOGY: Negative. RHEUMATOLOGY: Negative. PSYCHIATRY: As mentioned earlier. PHYSICAL EXAMINATION: Patient alert and oriented x2. Pulse 75, blood pressure 125/62, respiration 20, temperature 97 degrees, pulse ox 98% on room air. HEENT: Conjunctivae normal. Oral mucosa dry. NECK: No jugular venous distention. No thyroid enlargement. No carotid bruit. CARDIOVASCULAR SYSTEM: S1, S2 muffled. No S3. No S4. RESPIRATORY SYSTEM: Breath sounds diminished at the bases. No rhonchi. No crackles. No bronchial breath sounds. ABDOMEN: Soft, non-tender. No mass palpable. LEGS: No edema. No swelling. NERVOUS SYSTEM: Higher functions as mentioned earlier. Moves all 4 limbs. No focal motor or sensory deficit. LYMPHATICS: No lymph node palpable in neck, axillae or groin. SKIN: No ulcer, rash, bleeding. LABS: WBC 8.5, hemoglobin 11.6. INR is 1. Sodium 141, potassium 5, creatinine 2.18, glucose 263, calcium 10.8, ionized calcium 6.1. UA noted. ASSESSMENT: 1. Acute renal failure, possibly prerenal acute renal failure with acute tubular necrosis. 2. Change in mental status, metabolic encephalopathy, multifactorial. 3. 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 4. Rule out transient ischemic attack. 5. Generalized tiredness and weakness. 6. History of congestive heart failure. 7. Cerebrovascular accident, transient ischemic attack. 8. History of recent urinary tract infection with sepsis. 9. Diabetes mellitus, type 2. 10.Hypertension. 11.Hyperlipidemia. 12.Pacemaker. 13.History of carotid artery surgery. 14.History of nicotine dependence. 15.Congestive heart failure with chronic systolic dysfunction, ejection fraction 35% to 40%. RECOMMENDATIONS AND DISCUSSION: In this 72-year-old gentleman who presented with multiple medical problems, we will monitor the patient closely, continue the current medications, continue symptomatic treatment. CT scan of the brain showed cerebral atrophy and old large right occipital lobe cortical infarct. We will continue to monitor. The possibility of TIA is also considered. Neurology will be consulted. Neuro checks. Continue to monitor. Complete neurovascular workup, including carotid Doppler. Two-D echo was done on 09/08/2017 which showed ejection fraction 35% to 40%. Otherwise, we will continue to monitor. PT/OT evaluation, possible ECF rehab. I would also recommend monitoring the fluid/electrolyte balance. The chest x-ray which was personally reviewed by me shows no evidence of any fluid overload. I would also hold the Lasix and Aldactone. Monitor blood pressure closely. Cardiology consultation will be obtained. Overall prognosis is extremely guarded because of multiple complex medical issues, as mentioned earlier. Further recommendations to follow. A copy of this dictation is being forwarded to Dr. Zarco, who is the primary physician. MMODL / IJN: [id number] /
[2017-12-17 07:11] LABS: Glucose,Whole Blood 93 mg/dL (75-99)
[2017-12-17 08:00] LABS: Basophils # (A) 0.1 k/uL (0-0.2); Basophils % (A) 1 %; Eosinophils # (A) 0.4 k/uL (0-0.7); Eosinophils % (A) 4 %; HCT 34.3 % (39.0-53.0); Lymphocytes # (A) 1.9 k/uL (1.0-4.8); Lymphocytes % (A) 24 %; MCH 30.4 pg (25.0-35.0); MCHC 32.1 g/dL (31.0-37.0); MCV 94.7 fL (80.0-100.0); Mean Platelet Volume 7.3; Monocytes # (A) 0.4 k/uL (0-1.0); Monocytes % (A) 5 %; Neutrophils % (A) 64 %; Platelet Count 239 k/uL (150-450); RBC 3.63 m/uL (4.30-5.90); RDW 13.2 % (11.5-15.5); WBC 7.8 k/uL (3.8-10.6)
[2017-12-17] MEDS: INSULIN ASPART 100 UNIT/ML 1 ML 10 ML VIAL SQ SCH ×4 (08:07→21:31)
[2017-12-17] MEDS: PANTOPRAZOLE 40 MG/10 ML VIAL IVP SCH (08:10)
[2017-12-17] MEDS: INSULIN DETEMIR 100 UNIT/ML 10 ML VIAL SQ SCH ×2 (08:10→21:28)
[2017-12-17] MEDS: CILOSTAZOL 100 MG TAB PO SCH ×2 (08:10→21:26)
[2017-12-17] MEDS: CARVEDILOL 12.5 MG TAB PO SCH ×2 (08:11→17:54)
[2017-12-17] MEDS: FUROSEMIDE 40 MG TAB PO SCH (08:11)
[2017-12-17 08:17] LABS: Albumin 3.3 g/dL (3.5-5.0); Calcium 10.8 mg/dL (8.4-10.2); Magnesium 2.1 mg/dL (1.6-2.3); Potassium 4.7 mmol/L (3.5-5.1); Total Bilirubin 0.4 mg/dL (0.2-1.3); Total Protein 5.9 g/dL (6.3-8.2)
--- NOTE | 2017-12-17 10:03 | P.CRDCN ---
History of Present Illness History of present illness: Mr. Chan is a pleasant 72-year-old male past medical history significant for non-ischemic cardiomyopathy s/p pacemaker/defibrillator implantation, chronic systolic heart failure, prior CVA, hypertension, dyslipidemia, diabetes mellitus and chronic nicotine dependence. He follows with a planning consultant out of town. We have been asked to see him in consultation for heart failure. He was brought in per his with complaints of increased weakness. He was recently discharged 10/28/2017 with diagnosis of urinary tract infection and encephalopathy. He is somewhat of a poor historian, most information is obtained from the chart. He does however, deny chest pain, shortness of breath, dizziness, palpitations, nausea, vomiting or diaphoresis. He also denies orthonea or PND. At the time of my exam he is seen sitting up in bed in no acute distress on room air. He has a noticable tremor in the right arm and mild twitching noted in the left. He states this has been going on intermittently lately. EKG reveals atrial paced rhythm with PVC's. Chest xray indicates mild pulmonary fibrosis with improvement in pulmonary venous congestion from previous exam in October. Laboratory data reviewed, hemoglobin 11, platelets 239, sodium 143, potassium 4.7, magnesium 2.1, creatinine 1.64 down from 2.18 on admission. Baseline creatinine runs around 1.6. Ionized calcium 6.1, NT proBNP 1778, TSH 1.55, cardiac enzymes negative 1. Current cardiac medications include aspirin 81 mg daily, atorvastatin 40 mg daily, carvedilol 12.5 mg twice a day, Lasix 40 mg daily, Aldactone 12.5 mg daily at lunchtime and Entresto 24/26 mg twice a day. Most recent echocardiogram obtained 09/2017 revealed impaired LV systolic function with EF 35-40%, global hypokinesia, severely dialted LA, mild MR and mild TR. Review of Systems At the time of my exam: CONSTITUTIONAL: Denies fever. Denies chills. EYES: Denies blurred vision. Denies vision changes. Denies eye pain. EARS, NOSE, MOUTH & THROAT: Denies headache. Denies sore throat. Denies ear pain. CARDIOVASCULAR: Denies chest pain. Denies shortness of breath. Denies orthopnea. Denies PND. Denies palpitations. RESPIRATORY: Denies cough. GASTROINTESTINAL: Denies abdominal pain. Denies diarrhea. Denies constipation. Denies nausea. Denies vomiting. MUSCULOSKELETAL: Denies myalgias. INTEGUMENTARY: Denies pruitis. Denies rash. NEUROLOGIC: Denies numbness. Denies tingling. Denies weakness. PSYCHIATRIC: Denies anxiety. Denies depression. ENDOCRINE: Denies fatigue. Denies weight change. Denies polydipsia. Denies polyurina. GENITOURINARY: Denies burning, hematuria or urgency with micturation. HEMATOLOGIC: Denies history of anemia. Denies bleeding. Past Medical History Past Medical History: Heart Failure, CVA/TIA, Diabetes Mellitus, Hyperlipidemia , Hypertension Additional Past Medical History / Comment(s): Missing ring finger on right hand History of Any Multi-Drug Resistant Organisms: None Reported Past Surgical History: Pacemaker Additional Past Surgical History / Comment(s): carotid artery surgery Past Anesthesia/Blood Transfusion Reactions: No Reported Reaction Type of Cardiac Device: Permanent Pacemaker Device Placement Date:: 2009 Past Psychological History: No Psychological Hx Reported Smoking Status: Current every day smoker Past Alcohol Use History: None Reported Past Drug Use History: None Reported - Past Family History Mother Family Medical History: Cancer Brother(s) Family Medical History: Cancer Medications and Allergies Home Medications Medication Instructions Recorded Confirmed Type Aspirin 81 mg PO HS 01/11/15 12/16/17 History Atorvastatin [Lipitor] 40 mg PO HS 01/11/15 12/16/17 History Ferrous Sulfate [Iron (65 MG 325 mg PO AC-LUNCH 01/11/15 12/16/17 History Elemental)] Insulin Aspart [NovoLOG] See Protocol SQ AC-TID 01/11/15 12/16/17 History Sulphur Carbonate [Sulphur 300 mg PO DAILY 01/11/15 12/16/17 History Carbonate ER] metFORMIN HCL [Glucophage] 500 mg PO BID 01/11/15 12/16/17 History Furosemide [Lasix] 40 mg PO DAILY #30 tablet 01/14/15 12/16/17 Rx Cilostazol [Pletal] 50 mg PO BID 09/08/17 12/16/17 History Famotidine [Pepcid] 20 mg PO HS 09/08/17 12/16/17 History Spironolactone [Aldactone] 12.5 mg PO AC-LUNCH 09/08/17 12/16/17 History Insulin Detemir [Levemir] 42 unit SQ BID #0 10/28/17 12/16/17 Rx Armodafinil [Nuvigil] 250 mg PO QAM 12/16/17 12/16/17 History Calcium Carbonate [Calcium] 600 mg PO DAILY 12/16/17 12/16/17 History Carvedilol [Coreg] 12.5 mg PO BID 12/16/17 12/16/17 History Sacubitril/Valsartan [Entresto 24 1 tab PO BID 12/16/17 12/16/17 History mg-26 mg Tablet] Allergies Allergy/AdvReac Type Severity Reaction Status Date / Time No Known Allergies Allergy Verified 12/16/17 16:06 Physical Exam Vitals: Vital Signs Temp Pulse Pulse Resp BP BP Pulse Ox 12/17/17 07:00 98.2 F 60 20 111/46 93 L 12/16/17 23:00 98.7 F 72 18 103/49 95 12/16/17 20:30 97.9 F 71 18 149/71 98 12/16/17 19:52 97 F L 75 20 125/62 98 12/16/17 19:15 74 20 154/86 100 12/16/17 18:15 69 20 154/67 99 12/16/17 17:17 68 20 142/60 98 12/16/17 16:29 68 20 137/68 95 12/16/17 15:27 97.4 F L 70 18 138/58 97 Intake and Output 12/16/17 12/17/17 12/17/17 22:59 06:59 14:59 Intake Total 250 600 Output Total 550 Balance -300 600 Intake: Oral 250 600 Output: Urine 550 Other: Voiding Method Bedside Commode Bedside Commode # Voids 1 3 Weight 86.5 kg Blood pressure 111/46 heart rate 60 afebrile maintaining oxygen saturation on room air GENERAL: This is a 72-year-old male in no apparent distress at the time of my examination. HEENT: Head is atraumatic, normocephalic. Pupils are equal, round. Sclerae anicteric. Conjunctivae are clear. Mucous membranes of the mouth are moist. Neck is supple. There is no jugular venous distention. No carotid bruit is heard. LUNGS: Clear to auscultation no wheezes, rales or rhonchi. No chest wall tenderness is noted on palpation or with deep breathing. HEART: Regular rate and rhythm without murmurs, rubs or gallops. S1 and S2 heard. ABDOMEN: Soft, nontender. Bowel sounds are heard. No organomegaly noted. EXTREMITIES: No evidence of peripheral edema and no calf tenderness noted. VASCULAR: Radial and dorsalis pedis pulses palpated, no evidence of clubbing. NEUROLOGIC: Patient is awake, alert and oriented x3. Mild confusion. Results 12/17/17 07:09 12/17/17 07:09 Cardiac Enzymes 12/16/17 12/16/17 12/17/17 Range/Units 16:08 16:08 07:09 AST 13 L 15 L (17-59) U/L CK-MB (CK-2) 1.0 (0.0-2.4) ng/mL Troponin I 0.028 (0.000-0.034) ng/mL Coagulation 12/16/17 Range/Units 16:08 PT 10.0 (9.0-12.0) sec APTT 21.6 L (22.0-30.0) sec CBC 12/16/17 12/17/17 Range/Units 16:08 07:09 WBC 8.5 7.8 (3.8-10.6) k/uL RBC 3.85 L 3.63 L (4.30-5.90) m/uL Hgb 11.6 L 11.0 L (13.0-17.5) gm/dL Hct 36.2 L 34.3 L (39.0-53.0) % Plt Count 276 239 (150-450) k/uL Comprehensive Metabolic Panel 12/16/17 12/17/17 Range/Units 16:08 07:09 Sodium 141 143 (137-145) mmol/L Potassium 5.0 4.7 (3.5-5.1) mmol/L Chloride 107 113 H (98-107) mmol/L Carbon Dioxide 27 24 (22-30) mmol/L BUN 53 H 43 H (9-20) mg/dL Creatinine 2.18 H 1.64 H (0.66-1.25) mg/dL Glucose 263 H 82 (74-99) mg/dL Calcium 10.8 H 10.8 H (8.4-10.2) mg/dL AST 13 L 15 L (17-59) U/L ALT 24 27 (21-72) U/L Alkaline Phosphatase 74 63 (38-126) U/L Total Protein 6.5 5.9 L (6.3-8.2) g/dL Albumin 3.7 3.3 L (3.5-5.0) g/dL Current Medications Generic Name Dose Route Start Last Admin Trade Name Freq PRN Reason Stop Dose Admin Acetaminophen 650 mg 12/16/17 18:42 Tylenol Tab PO Q6HR PRN Mild Pain or Fever > 100.5 Aspirin 81 mg 12/16/17 21:00 12/16/17 21:57 Aspirin PO 81 mg HS VINCENT Administration Atorvastatin Calcium 40 mg 12/16/17 21:00 12/16/17 21:57 Lipitor PO 40 mg HS VINCENT Administration Carvedilol 12.5 mg 12/17/17 07:30 12/17/17 08:11 Coreg PO 12.5 mg BID-W/MEALS VINCENT Administration Cilostazol 50 mg 12/16/17 21:00 12/17/17 08:10 Pletal PO 50 mg BID VINCENT Administration Ferrous Sulfate 325 mg 12/17/17 12:30 Feosol PO AC-LUNCH VINCENT Furosemide 40 mg 12/17/17 09:00 12/17/17 08:11 Lasix PO 40 mg DAILY VINCENT Administration Sodium Chloride 1,000 mls @ 50 mls/hr 12/16/17 18:45 12/16/17 19:52 Saline 0.9% IV 50 mls/hr .Q20H VINCENT Administration Insulin Aspart 0 unit 12/16/17 21:39 12/17/17 08:07 Novolog SQ Not Given ACHS [facility] Protocol Insulin Detemir 42 unit 12/16/17 21:00 12/17/17 08:10 Levemir SQ 42 unit BID VINCENT Administration Naloxone HCl 0.2 mg 12/16/17 18:42 Narcan IV Q2M PRN Opioid Reversal Pantoprazole Sodium 40 mg 12/17/17 07:30 12/17/17 08:10 Protonix IVP 40 mg DAILY@0730 VINCENT Administration Intake and Output 12/16/17 12/17/17 12/17/17 22:59 06:59 14:59 Intake Total 250 600 Output Total 550 Balance -300 600 Intake: Oral 250 600 Output: Urine 550 Other: Voiding Method Bedside Commode Bedside Commode # Voids 1 3 Weight 86.5 kg 12/17/17 07:09 12/17/17 07:09 Assessment and Plan Assessment: ASSESSMENT Altered mental status Generalized weakness Tremor Hypercalcemia Non-ischemic cardiomyopathy s/p pacemaker/AICD placement History of chronic systolic heart failure, most recent EF 35-40% Hypertension Dyslipidemia Acute on chronic kidney disease, GFR 41 Diabetes mellitus History CVA PLAN Patient appears clinically euvolemic. Resume entresto 24/26 mg BID and aldactone 12.5 mg daily. Continue atorvastatin, aspirin, carvedilol and lasix at home doses. Ongoing medical management. Thank you kindly for this consultation. Nurse Practitioner note has been reviewed, I agree with a documented findings and plan of care. Patient was seen and examined.
[2017-12-17] MEDS: SPIRONOLACTONE 25 MG TAB PO SCH (11:43)
[2017-12-17] MEDS: SACUBITRIL/VALSARTAN 24 MG-26 MG TABLET PO SCH ×2 (11:44→21:28)
[2017-12-17] MEDS: FERROUS SULFATE 325 MG TAB PO SCH (11:44)
[2017-12-17 12:10] LABS: Glucose,Whole Blood 90 mg/dL (75-99)
[2017-12-17] MEDS: NICOTINE 14MG/24HR PATCH TRANSDERM SCH (12:12)
[2017-12-17] MEDS: SODIUM CHLORIDE 0.9% 1,000 ML IV SCH (14:24)
[2017-12-17 17:37] LABS: Glucose,Whole Blood 214 mg/dL (75-99)
--- NOTE | 2017-12-17 19:09 | P.PN ---
Subjective Progress Note Date: 12/17/17 Progress note being dictated for Dr. Novak. Interval history: This a 72-year-old gentleman admitted with severe dehydration , acute renal failure, change in mental status, acute metabolic encephalopathy, possible TIA and multiple other medical issues. Maintained on gentle IV fluid hydration with Lasix, Aldactone on hold. Renal function improving. Evaluated by cardiology with recommendations noted. Pleasantly confused. Afebrile. Ambulating using walker. Objective - Vital Signs Vital signs: Vital Signs Temp 97.9 F 12/17/17 14:35 Pulse 60 12/17/17 14:35 Resp 18 12/17/17 14:35 BP 100/55 12/17/17 17:47 Pulse Ox 96 12/17/17 14:35 Intake & Output 12/16/17 12/17/17 12/17/17 18:59 06:59 18:59 Intake Total 850 480 Output Total 550 Balance -550 850 480 Weight 95.254 kg 86.5 kg Intake: Oral 850 480 Output: Urine 550 Other: Voiding Method Bedside Commode Bedside Commode # Voids 3 3 # Bowel Movements 0 - Exam PHYSICAL EXAM: VITAL SIGNS: As above GENERAL: Sitting up in chair, pleasantly confused HEENT: Conjunctivae normal. eyes normal. Oral mucosa moist NECK: No JVD. No thyroid enlargement. No LNs CARDIOVASCULAR: S1, S2 muffled. No murmur RESPIRATION: Breath sounds diminished in the bases. No rhonchi or crackles. No bronchial breathing. ABDOMEN: Soft, nontender . No guarding. no masses palpable.ventral hernia present.Bowel sounds heard. LEGS: No edema. no swelling PSYCHIATRY: Alert and oriented -1, pleasantly confused, cooperative NERVOUS SYSTEM: Higher functions as mentioned previously. Moves all 4 limbs. Diffuse weakness No focal deficits. Skin: no ulcer no rash Joints: No active swelling. No inflammation. Lymphatic system. No LN neck axilla or groin. - Labs CBC & Chem 7: 12/17/17 07:09 12/17/17 07:09 Labs: Abnormal Lab Results - Last 24 Hours (Table) 12/16/17 12/17/17 12/17/17 Range/Units 20:55 07:09 07:09 RBC 3.63 L (4.30-5.90) m/uL Hgb 11.0 L (13.0-17.5) gm/dL Hct 34.3 L (39.0-53.0) % Chloride 113 H (98-107) mmol/L BUN 43 H (9-20) mg/dL Creatinine 1.64 H (0.66-1.25) mg/dL POC Glucose (mg/dL) 204 H (75-99) mg/dL Calcium 10.8 H (8.4-10.2) mg/dL AST 15 L (17-59) U/L Total Protein 5.9 L (6.3-8.2) g/dL Albumin 3.3 L (3.5-5.0) g/dL 12/17/17 Range/Units 17:25 RBC (4.30-5.90) m/uL Hgb (13.0-17.5) gm/dL Hct (39.0-53.0) % Chloride (98-107) mmol/L BUN (9-20) mg/dL Creatinine (0.66-1.25) mg/dL POC Glucose (mg/dL) 214 H (75-99) mg/dL Calcium (8.4-10.2) mg/dL AST (17-59) U/L Total Protein (6.3-8.2) g/dL Albumin (3.5-5.0) g/dL Microbiology - Last 24 Hours (Table) 12/16/17 17:15 Urine Culture - Preliminary Urine,Voided Assessment and Plan Assessment: -Acute renal failure, possibly prerenal with HTN -Change in mental status, acute metabolic encephalopathy, multifactorial -Old large occipital lobe cortical infarct -Rule out TIA -Diabetes mellitus type 2 -Chronic congestive heart failure, systolic dysfunction, EF 35-40% -Pacemaker, nonischemic cardiomyopathy -Ongoing nicotine dependence Plan: Continue on current medication regime ,monitoring and symptomatic treatment. Cautious IV fluid hydration as patient has a history of CHF. Close monitoring of renal function and electrolytes with repeat labs ordered for a.m. empiric antibiotics. Nicotine patch ordered. at bedside, updated on plan of care. To facilitate orientation, keep lights on and blinds open during the day. PT/OT with subacute rehab at discharge discussed with . Prognosis guarded given multiple complex issues. Further recommendations to follow. The impression and plan of care has been dictated as directed. : I performed a history and examination of this patient, discussed the same with the dictator. I agree with the dictator's note ,documented as a scribe. Any additional findings or plans will be noted.
--- NOTE | 2017-12-17 19:45 | US ---
EXAMINATION TYPE: US carotid duplex BILAT DATE OF EXAM: 12/17/2017 COMPARISON: NONE CLINICAL HISTORY: stroke. EXAM MEASUREMENTS: RIGHT: Peak Systolic Velocity (PSV) cm/sec ----- Right CCA: 82.5 ----- Right ICA: 58.7 ----- Right ECA: 120.0 ICA/CCA ratio: 0.7 RIGHT: End Diastole cm/sec ----- Right CCA: 13.1 ----- Right ICA: 11.5 ----- Right ECA: 15.1 LEFT: Peak Systolic Velocity (PSV) cm/sec ----- Left CCA: 84.9 ----- Left ICA: 83.2 ----- Left ECA: 115.9 ICA/CCA ratio: 1.0 LEFT: End Diastole cm/sec ----- Left CCA: 18.1 ----- Left ICA: 15.7 ----- Left ECA: 8.6 VERTEBRALS (direction of flow): Right Vertebral: Antegrade Left Vertebral: Antegrade Rhythm: Arrhythmia (See waveforms) Technically difficult exam, patient unable to cooperate with examiner. No significant velocity eleva tions. IMPRESSION: 1. No significant flow-limiting stenosis based on velocities. 2. Examination was technically difficult with an uncooperative patient. Criteria for Assigning % of Stenosis / Diameter reduction (Estimation based on the indirect measurements of the internal carotid artery velocities (ICA PSV). 1. Normal (no stenosis)=ICA PSV < 125 cm/s: ratio < 2.0: ICA EDV<40 cm/s. 2. Less than 50% stenosis=ICA PSV < 125 cm/s: ratio < 2.0: ICA EDV<40 cm/s. 3. 50 to 69% stenosis=ICA PSV of 125 to 230 cm/s: ration 2.0 ? 4.0: ICA EDV 40-100 cm/s. 4. Greater than 70% stenosis to near occlusion= ICA PSV > 230 cm/s: ratio > 4.0: ICA EDV > 100 cm/s. 5. Near occlusion= ICA PSV velocities may be low or undetectable: variable ratio and ICA EDV. 6. Total occlusion=unable to detect flow.
[2017-12-17 20:44] LABS: Glucose,Whole Blood 188 mg/dL (75-99)
[2017-12-17] MEDS: ATORVASTATIN 40 MG TAB PO SCH (21:26)
[2017-12-17] MEDS: ASPIRIN 81 MG PO SCH (21:26)
[2017-12-17] MEDS ORDERED: INSULIN ASPART 100 UNIT/ML 1 ML 10 ML VIAL SQ SCH (21:28)
[2017-12-18 07:19] LABS: Glucose,Whole Blood 59 mg/dL (75-99)
[2017-12-18] MEDS: INSULIN ASPART 100 UNIT/ML 1 ML 10 ML VIAL SQ SCH ×4 (07:36→21:23)
[2017-12-18 07:41] LABS: Glucose,Whole Blood 104 mg/dL (75-99)
--- NOTE | 2017-12-18 08:30 | P.CNNES ---
History of Present Illness Consult date: 12/17/17 Reason for Consult: Patient is being evaluated for generalized weakness and confusion. History of Present Illness: This patient is a 72-year-old right-handed white male who was recently admitted to hospital and treated for urinary tract infection with sepsis. Urine cultures were positive for E. coli at the time. He was showing improvement and was discharged home. After returning home he was having increasing symptoms of weakness and confusion. Due to the altered mental status he was brought to the emergency room at [facility] on 12/16/2017 for evaluation. He was seen in the ER by Dr. Buchanan. He was sent for a computed tomography scan of the brain which revealed evidence of cerebral atrophy. 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 No acute intracranial abnormality was noted. The patient was subsequent admitted to the hospital for further evaluation of possible TIA and assessment of altered mental status. The patient has a significant past medical history for nonischemic cardiomyopathy. He has had placement of a pacemaker defibrillator in the past. He had evidence of heart failure on admission and is being evaluated by cardiology. Patient is a poor historian and was unable to provide details of his past medical history. His speech is also at times slightly dysarthric. He does have noticeable tremor in his right arm and some degree of tremors in the legs. Patient states he has had tremors for years. Clinical exam findings today suggest possibility of parkinsonism. The patient does have evidence of generalized weakness which has been an ongoing feature and his home. Due to his complex medical history he was admitted to hospital for further evaluation. He does have history of nonischemic cardiomyopathy as well as history of chronic systolic heart failure with this most recent EF being 3540 percent. He is being treated for acute renal failure as well. He has definite evidence suggesting underlying metabolic encephalopathy. We will continue to follow his progress closely during this admission. Neurology is now been consulted for further evaluation and recommendations. Review of Systems Constitutional: Denies chills, Denies fever Eyes: denies blurred vision, denies pain Ears, nose, mouth and throat: Denies headache, Denies sore throat Cardiovascular: Denies chest pain, Denies shortness of breath Respiratory: Denies cough Gastrointestinal: Denies abdominal pain, Denies diarrhea, Denies nausea, Denies vomiting Musculoskeletal: Denies myalgias Integumentary: Denies pruritus, Denies rash Neurological: Reports ataxia, Reports balance difficulties, Reports change in mentation, Reports confusion, Reports memory loss, Reports paresthesias, Reports tingling, Denies numbness, Denies weakness Psychiatric: Reports confusion, Reports disorientation, Reports hallucinations, Reports memory loss, Denies anxiety, Denies depression Endocrine: Denies fatigue, Denies weight change Past Medical History Past Medical History: Heart Failure, CVA/TIA, Diabetes Mellitus, Hyperlipidemia , Hypertension Additional Past Medical History / Comment(s): Missing ring finger on right hand History of Any Multi-Drug Resistant Organisms: None Reported Past Surgical History: Pacemaker Additional Past Surgical History / Comment(s): carotid artery surgery Past Anesthesia/Blood Transfusion Reactions: No Reported Reaction Type of Cardiac Device: Permanent Pacemaker Device Placement Date:: 2009 Past Psychological History: No Psychological Hx Reported Smoking Status: Current every day smoker Past Alcohol Use History: None Reported Past Drug Use History: None Reported - Past Family History Mother Family Medical History: Cancer Brother(s) Family Medical History: Cancer Medications and Allergies Home Medications Medication Instructions Recorded Confirmed Type Aspirin 81 mg PO HS 01/11/15 12/16/17 History Atorvastatin [Lipitor] 40 mg PO HS 01/11/15 12/16/17 History Ferrous Sulfate [Iron (65 MG 325 mg PO AC-LUNCH 01/11/15 12/16/17 History Elemental)] Insulin Aspart [NovoLOG] See Protocol SQ AC-TID 01/11/15 12/16/17 History Ke[place] Carbonate [Keota 300 mg PO DAILY 01/11/15 12/16/17 History Carbonate ER] metFORMIN HCL [Glucophage] 500 mg PO BID 01/11/15 12/16/17 History Furosemide [Lasix] 40 mg PO DAILY #30 tablet 01/14/15 12/16/17 Rx Cilostazol [Pletal] 50 mg PO BID 09/08/17 12/16/17 History Famotidine [Pepcid] 20 mg PO HS 09/08/17 12/16/17 History Spironolactone [Aldactone] 12.5 mg PO AC-LUNCH 09/08/17 12/16/17 History Insulin Detemir [Levemir] 42 unit SQ BID #0 10/28/17 12/16/17 Rx Armodafinil [Nuvigil] 250 mg PO QAM 12/16/17 12/16/17 History Calcium Carbonate [Calcium] 600 mg PO DAILY 12/16/17 12/16/17 History Carvedilol [Coreg] 12.5 mg PO BID 12/16/17 12/16/17 History Sacubitril/Valsartan [Entresto 24 1 tab PO BID 12/16/17 12/16/17 History mg-26 mg Tablet] Allergies Allergy/AdvReac Type Severity Reaction Status Date / Time No Known Allergies Allergy Verified 12/16/17 16:06 Physical Examination - Vital Signs Vital Signs: Vital Signs Temp Pulse Pulse Resp BP BP BP 12/17/17 14:35 97.9 F 60 18 75/34 91/52 12/17/17 07:00 98.2 F 60 20 111/46 12/16/17 23:00 98.7 F 72 18 103/49 12/16/17 20:30 97.9 F 71 18 149/71 12/16/17 19:52 97 F L 75 20 125/62 12/16/17 19:15 74 20 154/86 12/16/17 18:15 69 20 154/67 12/16/17 17:17 68 20 142/60 12/16/17 16:29 68 20 137/68 Pulse Ox 12/17/17 14:35 96 12/17/17 07:00 93 L 12/16/17 23:00 95 12/16/17 20:30 98 12/16/17 19:52 98 12/16/17 19:15 100 12/16/17 18:15 99 12/16/17 17:17 98 12/16/17 16:29 95 Intake and Output 12/17/17 12/17/17 12/17/17 06:59 14:59 22:59 Intake Total 600 480 Balance 600 480 Intake: Oral 600 480 Other: Voiding Method Bedside Commode # Voids 3 3 # Bowel Movements 0 - Constitutional General appearance: average body habitus, cooperative - EENT EENT: PERRL, mucous membranes moist - Respiratory Respiratory: lungs clear, normal breath sounds - Cardiovascular Cardiovascular: regular rate, normal S1, normal S2 Extremities: no peripheral edema bilaterally - Gastrointestinal Gastrointestinal: normoactive bowel sounds, absent bowel sounds, hypoactive bowel sounds - Integumentary Integumentary: normal - Neurologic Cranial nerve examination: PERRL, EOMI, VFF, V1/V2/V3 grossly intact, face symmetric, intact gag reflex, intact corneal reflex, normal palatal elevation Speech examination: intact Sensorimotor examination: intact Motor examination - right side: 4/5: biceps, triceps, wrist flexion, wrist extension, family and consumer sciences teacher, hip flexors, knee extensors, dorsiflexion, toe extension (EHL) , plantarflexion Motor examination - left side: 4/5: biceps, triceps, wrist flexion, wrist extension, family and consumer sciences teacher, hip flexors, knee extensors, dorsiflexion, toe extension (EHL) , plantarflexion Detailed sensory examination: intact Reflex and gait examination: intact Reflexes: 1+: ankle, bicep, knee, tricep - Musculoskeletal Musculoskeletal: no pain - Psychiatric Psychiatric: mood/affect appropriate, cooperative Results - Laboratory Findings CBC and BMP: 12/17/17 07:09 12/17/17 07:09 Abnormal Lab Findings: Abnormal Labs 12/16/17 12/16/17 12/16/17 16:08 16:08 16:08 RBC 3.85 L Hgb 11.6 L Hct 36.2 L APTT Chloride BUN 53 H Creatinine 2.18 H Glucose 263 H POC Glucose (mg/dL) Calcium 10.8 H Ionized Calcium Sage 6.1 H* AST 13 L Total Creatine Kinase 22 L Total Protein Albumin Urine Protein Urine Glucose (UA) 12/16/17 12/16/17 12/16/17 16:08 17:15 20:55 RBC Hgb Hct APTT 21.6 L Chloride BUN Creatinine Glucose POC Glucose (mg/dL) 204 H Calcium Ionized Calcium Sage AST Total Creatine Kinase Total Protein Albumin Urine Protein Trace H Urine Glucose (UA) Trace H 12/17/17 12/17/17 07:09 07:09 RBC 3.63 L Hgb 11.0 L Hct 34.3 L APTT Chloride 113 H BUN 43 H Creatinine 1.64 H Glucose POC Glucose (mg/dL) Calcium 10.8 H Ionized Calcium Sage AST 15 L Total Creatine Kinase Total Protein 5.9 L Albumin 3.3 L Urine Protein Urine Glucose (UA) Assessment and Plan (1) Parkinsonism Current Visit: Yes Status: Acute Code(s): G20 - PARKINSON'S DISEASE SNOMED Code(s): 51653345 (2) Metabolic encephalopathy Current Visit: Yes Status: Acute Code(s): G93.41 - METABOLIC ENCEPHALOPATHY SNOMED Code(s): 56241471 (3) ANTHONY (acute kidney injury) Current Visit: Yes Status: Acute Code(s): N17.9 - ACUTE KIDNEY FAILURE, UNSPECIFIED SNOMED Code(s): 58086601 (4) CHF (congestive heart failure) Current Visit: No Status: Acute Code(s): I50.9 - HEART FAILURE, UNSPECIFIED SNOMED Code(s): 82425545 (5) Pacemaker Current Visit: No Status: Acute Code(s): Z95.0 - PRESENCE OF CARDIAC PACEMAKER SNOMED Code(s): 463960929 (6) UTI (urinary tract infection) Current Visit: No Status: Acute Code(s): N39.0 - URINARY TRACT INFECTION, SITE NOT SPECIFIED SNOMED Code(s): 21866183 Plan: his patient is a 72-year-old right-haspital with altered mental status and increased confusion. He was recently discharged from the hospital after being treated for urinary tract infection with E. coli. He was readmitted to the hospital on 12/16/2017 and is undergoing further evaluation. He is noted today on neurological examination is having evidence for parkinsonism. He is unable to have MRI of the brain as he has a pacemaker. We have recommended empirically treating him for parkinsonism with Sinemet to see how he may respond. He does have evidence suggesting underlying cognitive impairment and early dementia. We will continue to follow his progress closely as he is being treated for acute renal failure as well as congestive heart failure. He has multiple complex medical issues intervening to his poor prognosis. We will continue to follow his progress closely during this admission. He will likely require ECF placement at the time of discharge. His overall prognosis at this time remains very guarded. We will continue close neurological follow-up for this patient during this admission. Time with Patient: Greater than 30
[2017-12-18] MEDS: FUROSEMIDE 40 MG TAB PO SCH (09:09)
[2017-12-18] MEDS: CARVEDILOL 12.5 MG TAB PO SCH ×2 (09:09→17:42)
[2017-12-18] MEDS: FERROUS SULFATE 325 MG TAB PO SCH (09:09)
[2017-12-18] MEDS: CILOSTAZOL 100 MG TAB PO SCH ×2 (09:09→21:22)
[2017-12-18 09:10] LABS: Basophils # (A) 0.1 k/uL (0-0.2); Basophils % (A) 1 %; Eosinophils # (A) 0.4 k/uL (0-0.7); Eosinophils % (A) 3 %; HCT 38.6 % (39.0-53.0); Lymphocytes # (A) 1.8 k/uL (1.0-4.8); Lymphocytes % (A) 14 %; MCH 29.9 pg (25.0-35.0); MCV 96.4 fL (80.0-100.0); Mean Platelet Volume 7.2; Monocytes # (A) 0.5 k/uL (0-1.0); Monocytes % (A) 4 %; Neutrophils # (A) 10.1 k/uL (1.3-7.7); Neutrophils % (A) 78 %; Platelet Count 282 k/uL (150-450); RBC 4.01 m/uL (4.30-5.90); RDW 13.2 % (11.5-15.5); WBC 13.1 k/uL (3.8-10.6)
[2017-12-18] MEDS: PANTOPRAZOLE 40 MG/10 ML VIAL IVP SCH (09:10)
[2017-12-18] MEDS: NICOTINE 14MG/24HR PATCH TRANSDERM SCH (09:10)
[2017-12-18] MEDS: SACUBITRIL/VALSARTAN 24 MG-26 MG TABLET PO SCH ×2 (09:10→21:23)
[2017-12-18] MEDS: CARBIDOPA-LEVODOPA 25-100 MG 1 EACH TAB PO SCH ×2 (09:15→21:22)
[2017-12-18 09:27] LABS: Calcium 10.8 mg/dL (8.4-10.2); Potassium 4.3 mmol/L (3.5-5.1)
[2017-12-18 11:34] LABS: Glucose,Whole Blood 380 mg/dL (75-99)
[2017-12-18] MEDS: INSULIN DETEMIR 100 UNIT/ML 10 ML VIAL SQ SCH ×2 (12:30→21:24)
[2017-12-18] MEDS: SPIRONOLACTONE 25 MG TAB PO SCH (12:30)
[2017-12-18] MEDS: SODIUM CHLORIDE 0.9% 1,000 ML IV SCH (12:34)
[2017-12-18 17:22] LABS: Glucose,Whole Blood 425 mg/dL (75-99)
[2017-12-18] MEDS ORDERED: INSULIN REGULAR 100 UNIT in SODIUM CHLORIDE 0.9% 100 ML IV SCH (18:00)
--- NOTE | 2017-12-18 18:19 | PN ---
PROGRESS NOTE DATE OF SERVICE: 12/18/2017. INTERVAL HISTORY: This 72-year-old gentleman a gentleman who was admitted with acute renal failure and renal failure is being closely monitored at this time. No chest pain. No palpitations. No fever. REVIEW OF SYSTEMS: CARDIOVASCULAR: No angina. RESPIRATORY: As mentioned. GI: As mentioned. : No dysuria. NERVOUS SYSTEM: No numbness or tingling. CURRENT MEDICATIONS: Reviewed and include: 1. Tylenol 650 q.6h p.r.n. 2. Aspirin 81 mg. 3. Lipitor 40 mg. 5. Coreg 12.5 mg b.i.d. 6. Rocephin 1 g. 7. Pletal. 8. Iron sulfate. 9. Lasix. 10.NovoLog. 11.glyburide 40 units subcu b.i.d. 12.Narcan. 13.Habitrol 14 daily. 14.Entresto. 15.Aldactone. PHYSICAL EXAM: Alert and oriented x3. Pulse is 63, blood pressure 101/60, respirations 16, temperature 98.9, pulse ox 98% on room air. HEENT: Conjunctivae normal. Oral mucosa moist. Neck is no jugular venous distention. No carotid bruit. No lymph node enlargement. CARDIOVASCULAR: S1, S2. RESPIRATORY: Breath sounds diminished in the bases. A few scattered rhonchi and crackles. ABDOMEN: Soft, nontender. No mass palpable. LEGS: No edema. NERVOUS SYSTEM: Diffusely weak. LAB STUDIES: WBC 13, hemoglobin is 12, sodium 143, potassium 4, creatinine 1.50, glucose 425. ASSESSMENT: 1. Acute renal failure possibly prerenal with acute tubular necrosis. 2. Change in mental status, acute metabolic encephalopathy, multifactorial. 3. Diabetes mellitus type 2 with hypoglycemia, uncontrolled. 4. 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 5. Gait dysfunction. 6. Possible transient ischemic attack. 7. Chronic congestive heart failure with chronic systolic dysfunction, ejection fraction 35-40%. 8. Pacemaker, nonischemic cardiomyopathy. 9. Continued ongoing nicotine dependence. 10.FULL CODE. RECOMMENDATIONS AND DISCUSSION: In this 72-year-old gentleman who presented with multiple complex medical issues , we will monitor the patient closely. Continue the current management and symptomatic treatment. Otherwise at this time continue with IV fluids and monitor creatinine closely. Otherwise, PT, OT evaluation, possible ECF rehab. Guarded prognosis because of multiple complex medical issues. Encourage p.o. feeds. Further recommendations to follow. Avoid nephrotoxic agents. The cultures are negative so far. Further recommendations to follow. MMODL / IJN: [id number] / MTDD
[2017-12-18 18:28] LABS: Glucose,Whole Blood 375 mg/dL (75-99)
[2017-12-18 18:57] LABS: Glucose,Whole Blood 378 mg/dL (75-99)
[2017-12-18 20:05] LABS: Glucose,Whole Blood 166 mg/dL (75-99)
[2017-12-18] MEDS: ASPIRIN 81 MG PO SCH (21:22)
[2017-12-18] MEDS: ATORVASTATIN 40 MG TAB PO SCH (21:22)
[2017-12-19] MEDS: INSULIN ASPART 100 UNIT/ML 1 ML 10 ML VIAL SQ SCH ×5 (02:55→21:02)
[2017-12-19 02:56] LABS: Glucose,Whole Blood 47 mg/dL (75-99)
[2017-12-19 02:56] LABS: Glucose,Whole Blood 51 mg/dL (75-99)
[2017-12-19 03:23] LABS: Glucose,Whole Blood 72 mg/dL (75-99)
[2017-12-19] MEDS: SODIUM CHLORIDE 0.9% 1,000 ML IV SCH (05:50)
[2017-12-19 07:18] LABS: Glucose,Whole Blood 94 mg/dL (75-99)
[2017-12-19] MEDS ORDERED: INSULIN ASPART 100 UNIT/ML 1 ML 10 ML VIAL SQ SCH (07:30)
[2017-12-19 08:19] LABS: Basophils # (A) 0.1 k/uL (0-0.2); Basophils % (A) 1 %; Eosinophils # (A) 0.5 k/uL (0-0.7); Eosinophils % (A) 6 %; HCT 34.1 % (39.0-53.0); HGB 10.9 gm/dL (13.0-17.5); Lymphocytes # (A) 2.2 k/uL (1.0-4.8); Lymphocytes % (A) 31 %; MCH 30.1 pg (25.0-35.0); MCHC 31.9 g/dL (31.0-37.0); MCV 94.3 fL (80.0-100.0); Monocytes # (A) 0.4 k/uL (0-1.0); Monocytes % (A) 5 %; Neutrophils % (A) 56 %; Platelet Count 254 k/uL (150-450); RBC 3.62 m/uL (4.30-5.90); RDW 13.3 % (11.5-15.5); WBC 7.2 k/uL (3.8-10.6)
[2017-12-19 08:30] LABS: Calcium 9.6 mg/dL (8.4-10.2); Potassium 4.3 mmol/L (3.5-5.1)
[2017-12-19] MEDS: FUROSEMIDE 40 MG TAB PO SCH (08:57)
[2017-12-19] MEDS: PANTOPRAZOLE 40 MG/10 ML VIAL IVP SCH (08:57)
[2017-12-19] MEDS: FERROUS SULFATE 325 MG TAB PO SCH (08:57)
[2017-12-19] MEDS: SACUBITRIL/VALSARTAN 24 MG-26 MG TABLET PO SCH ×2 (08:57→21:01)
[2017-12-19] MEDS: NICOTINE 14MG/24HR PATCH TRANSDERM SCH (08:57)
[2017-12-19] MEDS: CILOSTAZOL 100 MG TAB PO SCH ×2 (08:58→21:01)
[2017-12-19] MEDS: CARBIDOPA-LEVODOPA 25-100 MG 1 EACH TAB PO SCH ×2 (08:58→21:01)
[2017-12-19] MEDS: CARVEDILOL 12.5 MG TAB PO SCH ×2 (08:58→17:15)
[2017-12-19] MEDS: cefTRIAXone IN SWFI 1,000 MG/10 ML SYRINGE IVP SCH (08:59)
[2017-12-19] MEDS: INSULIN DETEMIR 100 UNIT/ML 10 ML VIAL SQ SCH (09:07)
--- NOTE | 2017-12-19 09:27 | P.PN ---
Subjective Progress Note Date: 12/18/17 This patient is a 72-year-old right-handed white male who was seen in neurology consultation yesterday for evaluation of generalized weakness and confusion. His neurological examination reveals the patient to have symptoms suggesting parkinsonism. He was also being treated for an acute urinary tract infection and sepsis and is on appropriate antibiotic therapy. 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 The patient is a very poor historian. He has difficulty explaining his thoughts at this time. We will continue close neurological follow-up for this patient during this admission. We did start the patient on low dose Sinemet yesterday which will require several days of treatment to see if there is some response. As noted he does have clinical features of early parkinsonism. The patient will need several days of treatment with Sinemet to see if he is showing improvement with his clinical features. He will most likely require ECF placement at the time of discharge. His carotid Doppler study came back negative for any significant carotid artery stenosis. He is to continue on antibiotic therapy for treatment of his urinary tract infection. Hopefully this will also show improvement in his mental status. He does have history of nonischemic cardiomyopathy and pacemaker placement. We will await any further changes from his cardiac perspective should he show signs of heart failure. Objective - Vital Signs Vital signs: Vital Signs Temp 96.9 F L 12/18/17 14:46 Pulse 66 12/18/17 14:46 Resp 16 12/18/17 16:00 BP 101/62 12/18/17 14:46 Pulse Ox 99 12/18/17 14:46 Intake & Output 12/17/17 12/18/17 12/18/17 18:59 06:59 18:59 Intake Total 480 425 600 Output Total 3 Balance 480 422 600 Intake: Intake, IV Titration 425 Amount Sodium Chloride 0.9% 1, 375 000 ml @ 50 mls/hr IV . Q20H [facility] Rx#:[id number] cefTRIAXone 1,000 mg In 50 Sodium Chloride 0.9% 50 ml @ 100 mls/hr IVPB Q24HR [facility] Rx#:[id number] Oral 480 600 Output: Urine 3 Other: Voiding Method Bedside Commode Toilet # Voids 3 3 # Bowel Movements 0 1 - Exam Physical examination: PHYSICAL EXAMINATION: Patient is resting comfortably in bed. VITAL SIGNS: Blood pressure is [101/62]. Heart rate is [65]. Respiration is [16] . Temperature is [96.9]. HEENT: Head is atraumatic, neck is supple, there were no carotid bruits. CHEST: Lungs are clear to auscultation and percussion. CARDIAC: S1, S2 normal rate and rhythm. There is no murmur. ABDOMEN: Soft and nontender. Bowel sounds are present. EXTREMITIES: There is no pedal edema. Peripheral pulses are present. Neurological examination: Patient's neurological examination is unchanged from yesterday. - Labs CBC & Chem 7: 12/19/17 07:42 12/19/17 07:42 Labs: Abnormal Lab Results - Last 24 Hours (Table) 12/17/17 12/17/17 12/18/17 Range/Units 17:25 20:43 07:03 WBC (3.8-10.6) k/uL RBC (4.30-5.90) m/uL Hgb (13.0-17.5) gm/dL Hct (39.0-53.0) % Neutrophils # (1.3-7.7) k/uL Chloride (98-107) mmol/L BUN (9-20) mg/dL Creatinine (0.66-1.25) mg/dL Glucose (74-99) mg/dL POC Glucose (mg/dL) 214 H 188 H 59 L (75-99) mg/dL Calcium (8.4-10.2) mg/dL 12/18/17 12/18/17 12/18/17 Range/Units 07:23 08:22 08:22 WBC 13.1 H (3.8-10.6) k/uL RBC 4.01 L (4.30-5.90) m/uL Hgb 12.0 L (13.0-17.5) gm/dL Hct 38.6 L (39.0-53.0) % Neutrophils # 10.1 H (1.3-7.7) k/uL Chloride 109 H (98-107) mmol/L BUN 34 H (9-20) mg/dL Creatinine 1.50 H (0.66-1.25) mg/dL Glucose 136 H (74-99) mg/dL POC Glucose (mg/dL) 104 H (75-99) mg/dL Calcium 10.8 H (8.4-10.2) mg/dL 12/18/17 12/18/17 Range/Units 11:26 17:19 WBC (3.8-10.6) k/uL RBC (4.30-5.90) m/uL Hgb (13.0-17.5) gm/dL Hct (39.0-53.0) % Neutrophils # (1.3-7.7) k/uL Chloride (98-107) mmol/L BUN (9-20) mg/dL Creatinine (0.66-1.25) mg/dL Glucose (74-99) mg/dL POC Glucose (mg/dL) 380 H 425 H (75-99) mg/dL Calcium (8.4-10.2) mg/dL Microbiology - Last 24 Hours (Table) 12/16/17 17:15 Urine Culture - Final Urine,Voided Assessment and Plan (1) Parkinsonism Current Visit: Yes Status: Acute Code(s): G20 - PARKINSON'S DISEASE SNOMED Code(s): 94002469 (2) Metabolic encephalopathy Current Visit: Yes Status: Acute Code(s): G93.41 - METABOLIC ENCEPHALOPATHY SNOMED Code(s): 49418183 (3) ANTHONY (acute kidney injury) Current Visit: Yes Status: Acute Code(s): N17.9 - ACUTE KIDNEY FAILURE, UNSPECIFIED SNOMED Code(s): 78250608 (4) CHF (congestive heart failure) Current Visit: No Status: Acute Code(s): I50.9 - HEART FAILURE, UNSPECIFIED SNOMED Code(s): 78317898 (5) Pacemaker Current Visit: No Status: Acute Code(s): Z95.0 - PRESENCE OF CARDIAC PACEMAKER SNOMED Code(s): 311494043 (6) UTI (urinary tract infection) Current Visit: No Status: Acute Code(s): N39.0 - URINARY TRACT INFECTION, SITE NOT SPECIFIED SNOMED Code(s): 28157491 Plan: his patient is a 72-year-old right-haspital with altered mental status and increased confusion. He was recently discharged from the hospital after being treated for urinary tract infection with E. coli. He was readmitted to the hospital on 12/16/2017 and is undergoing further evaluation. He is noted today on neurological examination is having evidence for parkinsonism. He is unable to have MRI of the brain as he has a pacemaker. We have recommended empirically treating him for parkinsonism with Sinemet to see how he may respond. He does have evidence suggesting underlying cognitive impairment and early dementia. We will continue to follow his progress closely as he is being treated for acute renal failure as well as congestive heart failure. He has multiple complex medical issues intervening to his poor prognosis. We will continue to follow his progress closely during this admission. He will likely require ECF placement at the time of discharge. We will continue him on his current dose of Sinemet for the next several days. His dose will be titrated to see if he shows overall clinical improvement with his Parkinson's symptoms. His overall prognosis at this time remains guarded. We will continue close neurological follow-up for this patient during this admission.
[2017-12-19 11:36] LABS: Glucose,Whole Blood 248 mg/dL (75-99)
[2017-12-19] MEDS: SPIRONOLACTONE 25 MG TAB PO SCH (11:57)
[2017-12-19 16:59] LABS: Glucose,Whole Blood 267 mg/dL (75-99)
[2017-12-19 20:42] LABS: Glucose,Whole Blood 180 mg/dL (75-99)
[2017-12-19] MEDS ORDERED: INSULIN DETEMIR 100 UNIT/ML 10 ML VIAL SQ SCH (21:00)
[2017-12-19] MEDS: ATORVASTATIN 40 MG TAB PO SCH (21:01)
[2017-12-19] MEDS: ASPIRIN 81 MG PO SCH (21:01)
--- NOTE | 2017-12-19 22:32 | PN ---
PROGRESS NOTE DATE OF SERVICE: 12/19/2017. HISTORY: This 72-year-old gentleman was admitted with multiple medical issues including renal failure and change in mental status, being closely monitored. No chest pain. No palpitations. No fever. The carotid Doppler, which was done previously, did not show any significant flow-limiting stenosis. Multiple consultants including Cardiology as well as Neurology have seen the patient also. No chest pain. No palpitations. No fever. PHYSICAL EXAM: Alert and oriented x3. Pulse is 60, blood pressure 95/50, respirations 18, temperature 97.2, pulse ox 97% room air. HEENT: Oral mucosa moist. NECK: No jugular venous distention. No lymph node enlargements. CARDIOVASCULAR: S1 and S2 muffled. LUNGS: Breath sounds diminished at the bases. Bilateral scattered rhonchi and crackles. ABDOMEN: Soft, nontender. EXTREMITIES: Legs no edema, no swelling. LAB STUDIES: WBC 7.2, hemoglobin 10.9, creatinine is 1.79. ASSESSMENT: 1. Acute renal failure possibly prerenal acute tubular necrosis. 2. Change in mental status, acute metabolic encephalopathy multifactorial. 3. Possible chronic kidney disease stage III. 4. Diabetes mellitus type 2 with hypoglycemia, uncontrolled. 5. 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 6. Gait dysfunction. 7. Possible transient ischemic attack. 8. Parkinson disease. 9. Gait dysfunction. 10.History of congestive heart failure with chronic systolic dysfunction, ejection fraction 35% to 40%. 11.Pacemaker. 12.Nonischemic cardiomyopathy. 13.Continued ongoing nicotine dependence. 14.FULL CODE. RECOMMENDATIONS: Continue current management, monitoring, and symptomatic treatment. At this time I would recommend hold diuretics and continue to monitor. PT, OT evaluation. I would also recommend to reduce the dose of Levemir to 42 and 35 at night and continue to monitor. Further recommendations to follow. See orders for details. MMODL / IJN: [id number] /
[2017-12-20 02:24] LABS: Glucose,Whole Blood 107 mg/dL (75-99)
[2017-12-20] MEDS: INSULIN ASPART 100 UNIT/ML 1 ML 10 ML VIAL SQ SCH ×3 (02:36→12:52)
[2017-12-20] MEDS: SODIUM CHLORIDE 0.9% 1,000 ML IV SCH ×2 (03:00→16:17)
[2017-12-20 06:24] VITALS: RESP 18
[2017-12-20 07:38] LABS: Glucose,Whole Blood 71 mg/dL (75-99)
[2017-12-20] MEDS: CILOSTAZOL 100 MG TAB PO SCH (08:29)
[2017-12-20] MEDS: CARBIDOPA-LEVODOPA 25-100 MG 1 EACH TAB PO SCH (08:31)
[2017-12-20] MEDS: cefTRIAXone IN SWFI 1,000 MG/10 ML SYRINGE IVP SCH (08:31)
[2017-12-20] MEDS: NICOTINE 14MG/24HR PATCH TRANSDERM SCH (08:31)
[2017-12-20] MEDS: SACUBITRIL/VALSARTAN 24 MG-26 MG TABLET PO SCH (08:31)
[2017-12-20] MEDS: CARVEDILOL 12.5 MG TAB PO SCH (08:32)
[2017-12-20] MEDS: PANTOPRAZOLE 40 MG/10 ML VIAL IVP SCH (08:32)
[2017-12-20] MEDS ORDERED: INSULIN DETEMIR 100 UNIT/ML 10 ML VIAL SQ SCH (09:00)
[2017-12-20 09:20] LABS: Basophils # (A) 0.1 k/uL (0-0.2); Basophils % (A) 1 %; Eosinophils # (A) 0.5 k/uL (0-0.7); Eosinophils % (A) 7 %; HCT 38.5 % (39.0-53.0); HGB 12.1 gm/dL (13.0-17.5); Lymphocytes # (A) 2.2 k/uL (1.0-4.8); Lymphocytes % (A) 29 %; MCH 29.8 pg (25.0-35.0); MCHC 31.5 g/dL (31.0-37.0); MCV 94.5 fL (80.0-100.0); Mean Platelet Volume 7.4; Monocytes # (A) 0.4 k/uL (0-1.0); Monocytes % (A) 5 %; Neutrophils # (A) 4.1 k/uL (1.3-7.7); Neutrophils % (A) 57 %; Platelet Count 284 k/uL (150-450); RBC 4.08 m/uL (4.30-5.90); RDW 13.3 % (11.5-15.5); WBC 7.3 k/uL (3.8-10.6)
[2017-12-20 09:27] LABS: Calcium 9.7 mg/dL (8.4-10.2); Potassium 4.6 mmol/L (3.5-5.1)
[2017-12-20 10:27] LABS: Hemoglobin A1C 7.4 % (4.0-6.0)
[2017-12-20 11:45] LABS: Glucose,Whole Blood 192 mg/dL (75-99)
[2017-12-20] MEDS: FERROUS SULFATE 325 MG TAB PO SCH (12:53)
[2017-12-20] MEDS: SPIRONOLACTONE 25 MG TAB PO SCH (12:53)
[2017-12-20 14:35] VITALS: BP 113/52; PULSE 80; TEMP 97.9
--- NOTE | 2017-12-20 14:46 | P.DS ---
Providers Date of admission: 12/17/17 17:38 Expected date of discharge: 12/20/17 Attending physician: Ronna Novak Consults: 12/16/17 22:10 Consult Physician Routine Consulting Provider: Thomas Sapp Consult Reason/Comments: chf Do you want consulting provider notified?: Yes 12/16/17 22:12 Consult Physician Routine Consulting Provider: Cierra Bangura Consult Reason/Comments: tia, headache Do you want consulting provider notified?: Yes Primary care physician: Aria Zarco Hospital Course: Final Diagnoses: -Acute renal failure, possibly prerenal with ATN, possible chronic kidney disease, stage III -Change in mental status, acute metabolic encephalopathy, multifactorial -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 Evaluated by cardiology and neurology. Initially ,maintained on gentle IV fluid hydration with Lasix, Aldactone on hold. Renal function improving. Significant clinical improvement. Cleared by all consults for discharge. Patient is being discharged to [facility] subacute rehab in a stable condition with guarded prognosis. Lasix and lithium resumed with close monitoring of renal function outpatient. EXAM: GENERAL: No acute distress, alert and oriented 3 CARDIOVASCULAR: S1, S2 muffled. No murmur RESPIRATION: Breath sounds diminished in the bases. Scattered rhonchi and crackles. ABDOMEN: Soft, nontender . No guarding. no masses palpable.ventral hernia present.Bowel sounds heard. NERVOUS SYSTEM: No focal deficits. The impression and plan of care has been dictated as directed. : I performed a history and examination of this patient, discussed the same with the dictator. I agree with the dictator's note ,documented as a scribe. Any additional findings or plans will be noted. Time taken: 35 minutes Patient Condition at Discharge: Stable Plan - Discharge Summary New Discharge Prescriptions: New Carbidopa-Levodopa 25-100 mg [Sinemet 25-100 mg] 1 each PO BID tab Insulin Detemir [Levemir] 42 unit SQ DAILY syr Insulin Detemir [Levemir] 35 unit SQ HS syr INSULIN LISPRO (HumaLOG) [humaLOG] 0 unit SQ ACHS #1 vial Nicotine 14Mg/24Hr Patch [Habitrol] 1 patch TRANSDERM DAILY patch Pantoprazole [Protonix] 40 mg PO AC-BRKFST tablet. Cefuroxime Axetil [Ceftin] 500 mg PO BID #10 tab Continue Ferrous Sulfate [Iron (65 MG Elemental)] 325 mg PO AC-LUNCH Aspirin 81 mg PO HS Atorvastatin [Lipitor] 40 mg PO HS [place] Carbonate [[place] Carbonate ER] 300 mg PO DAILY Furosemide [Lasix] 40 mg PO DAILY #30 tablet Cilostazol [Pletal] 50 mg PO BID Spironolactone [Aldactone] 12.5 mg PO AC-LUNCH Armodafinil [Nuvigil] 250 mg PO QAM Calcium Carbonate [Calcium] 600 mg PO DAILY Carvedilol [Coreg] 12.5 mg PO BID Sacubitril/Valsartan [Entresto 24 mg-26 mg Tablet] 1 tab PO BID Discontinued Insulin Aspart [NovoLOG] See Protocol SQ AC-TID metFORMIN HCL [Glucophage] 500 mg PO BID Famotidine [Pepcid] 20 mg PO HS Insulin Detemir [Levemir] 42 unit SQ BID #0 Discharge Medication List Aspirin 81 mg PO HS 01/11/15 [History] Atorvastatin [Lipitor] 40 mg PO HS 01/11/15 [History] Ferrous Sulfate [Iron (65 MG Elemental)] 325 mg PO AC-LUNCH 01/11/15 [History] [place] Carbonate [[place] Carbonate ER] 300 mg PO DAILY 01/11/15 [History] Furosemide [Lasix] 40 mg PO DAILY #30 tablet 01/14/15 [Rx] Cilostazol [Pletal] 50 mg PO BID 09/08/17 [History] Spironolactone [Aldactone] 12.5 mg PO AC-LUNCH 09/08/17 [History] Armodafinil [Nuvigil] 250 mg PO QAM 12/16/17 [History] Calcium Carbonate [Calcium] 600 mg PO DAILY 12/16/17 [History] Carvedilol [Coreg] 12.5 mg PO BID 12/16/17 [History] Sacubitril/Valsartan [Entresto 24 mg-26 mg Tablet] 1 tab PO BID 09/13/18 [ History] Carbidopa-Levodopa 25-100 mg [Sinemet 25-100 mg] 1 each PO BID tab 12/20/17 [Rx ] Cefuroxime Axetil [Ceftin] 500 mg PO BID #10 tab 12/20/17 [Rx] INSULIN LISPRO (HumaLOG) [humaLOG] 0 unit SQ ACHS #1 vial 12/20/17 [Rx] Insulin Detemir [Levemir] 35 unit SQ HS syr 12/20/17 [Rx] Insulin Detemir [Levemir] 42 unit SQ DAILY syr 12/20/17 [Rx] Nicotine 14Mg/24Hr Patch [Habitrol] 1 patch TRANSDERM DAILY patch 12/20/17 [Rx] Pantoprazole [Protonix] 40 mg PO AC-BRKFST tablet. 12/20/17 [Rx] Follow up Appointment(s)/Referral(s): Tae Bangura MD [STAFF PHYSICIAN] - 2 Weeks Aria Zarco DO [Primary Care Provider] - 1 Week (after Discharged from subacute rehab) Armani Menendez MD [STAFF PHYSICIAN] - 3 Days (at [facility]) Patient Instructions/Handouts: Heart Failure (DC), Urinary Tract Infection in Men (DC) Activity/Diet/Wound Care/Special Instructions: [facility] confirm cardiology follow-up appointment prior to discharge. Cardiac, diabetic diet. Heart failure and Diabetes folders given. Activity as tolerated. Fall precautions. [place] resumed, close monitoring of renal function outpatient CBC, BMP in 3 days
--- NOTE | 2017-12-20 16:43 | XR ---
EXAMINATION: XR chest 1V portable, 2 views DATE AND TIME: 12/20/2017 12:15 PM CLINICAL INDICATION: chf TECHNIQUE: AP upright 2 views COMPARISON: 12/16/2018 FINDINGS: Cardiac pacemaker and moderately enlarged cardiac silhouette redemonstrated. Low lung volumes are noted, consistent with low level of inspiration at the moment of x-ray radiograp hy. This is similar to the prior study. The lungs are clear. The pleural spaces are negative. The skeletal structures and soft tissues are negative for acute findings. IMPRESSION: NO ACUTE PROCESS.
[2017-12-21] MEDS ORDERED: PANTOPRAZOLE 40 MG TABLET PO SCH (07:30)
== END 2017-12-20 16:38 | DRG 682 ==
LOC: EC 15:19 → 4MS4W 18:42 → OBSVTOIN 12-17 17:38
PROVIDERS: ADMIT Hospitalist; ATTEND Hospitalist
DX: N17.0 Acute kidney failure with tubular necrosis (principal); G93.41 Metabolic encephalopathy; I13.0 Hypertensive heart and chronic kidney disease with heart failure and stage 1 through stage 4 chronic kidney disease, or unspecified chronic kidney disease; I42.9 Cardiomyopathy, unspecified; I50.22 Chronic systolic (congestive) heart failure; N39.0 Urinary tract infection, site not specified; G45.9 Transient cerebral ischemic attack, unspecified; E11.22 Type 2 diabetes mellitus with diabetic chronic kidney disease; E11.649 Type 2 diabetes mellitus with hypoglycemia without coma; E78.5 Hyperlipidemia, unspecified; E83.52 Hypercalcemia; E86.0 Dehydration; F17.200 Nicotine dependence, unspecified, uncomplicated; G20 Parkinson's disease; I49.3 Ventricular premature depolarization; J84.10 Pulmonary fibrosis, unspecified; R26.9 Unspecified abnormalities of gait and mobility; N18.3 Chronic kidney disease, stage 3 (moderate); F03.90 Unspecified dementia, unspecified severity, without behavioral disturbance, psychotic disturbance, mood disturbance, and anxiety; Z79.4 Long term (current) use of insulin; Z79.82 Long term (current) use of aspirin; Z79.899 Other long term (current) drug therapy; Z86.73 Personal history of transient ischemic attack (TIA), and cerebral infarction without residual deficits; Z95.810 Presence of automatic (implantable) cardiac defibrillator; Z87.440 Personal history of urinary (tract) infections; Z80.9 Family history of malignant neoplasm, unspecified
CPT/HCPCS: 36415; 70450; 71045; 71046; 80048; 80053; 81003; 82330; 82550; 82553; 83036; 83605; 83735; 83880; 84100; 84443; 84484; 85025; 85610; 85730; 87086; 93005; 93880; 95816; 96360; 99285

== ENCOUNTER → 2018-01-10 | Outpatient (CLI) | payer MEDICARE ==
--- NOTE | 2018-01-11 06:33 | US ---
EXAMINATION TYPE: US kidneys/renal and bladder DATE OF EXAM: 01/10/2018 COMPARISON: NONE CLINICAL HISTORY: N17.8 OTHER ACUTE KIDNEY FAILURE; diabetic EXAM MEASUREMENTS: Right Kidney: 11.0 x 6.0 x 4.9 cm Left Kidney: 10.0 x 4.2 x 6.3 cm Post Void Residual Volume: patient was unable to void to assess volume Right Kidney: No hydronephrosis or masses seen Left Kidney: No hydronephrosis or masses seen Bladder: not fully prepped Bilateral Jets seen: not seen after 3 minute observation There is no evidence for hydronephrosis at this point in time. No nephrolithiasis is seen. No mike s are identified. Bladder is poorly distended and thus suboptimally evaluated. IMPRESSION: Suboptimal study, no hydronephrosis is evident bilaterally.
== END | disposition home or self-care (01) ==
LOC: RADUSWWP 15:32
PROVIDERS: ATTEND Family Medicine
DX: N17.8 Other acute kidney failure (principal)
CPT/HCPCS: 76770

== ENCOUNTER 2018-01-16 02:12 | Inpatient (IN) | payer MEDICARE ==
--- NOTE | 2018-01-16 02:15 | ED ---
General Adult HPI - General Stated complaint: Weakness/Vomiting Time Seen by Provider: 01/16/18 02:15 - History of Present Illness Initial comments: Mr. Chan is a 72-year-old male with a complex past medical history who is brought to the ED this morning via EMS for evaluation of generalized malaise, decreased appetite and refusal to take his medications at home for the past day and half. at bedside states that for the past few days he has had decreased appetite, he's been more sleepy and been staying in bed. She states that he hasn't taken any medication since Wednesday. They sent in the past with the patient has been again feeling unwell like this he has had a urinary tract infection and been septic. Patient is awake, alert oriented to self and able to answer yes no questions. He denies headache, chest pain, palpitations, trouble breathing, abdominal pain. He does report nausea and does report that he did have some vomiting earlier in the week but none today. When asked how his feeling the patient states that he's had better days. - Related Data Home Medications Medication Instructions Recorded Confirmed Aspirin 81 mg PO HS 01/11/15 12/16/17 Atorvastatin [Lipitor] 40 mg PO HS 01/11/15 12/16/17 Ferrous Sulfate [Iron (65 MG 325 mg PO AC-LUNCH 01/11/15 12/16/17 Elemental)] [place] Carbonate [[place] 300 mg PO DAILY 01/11/15 12/16/17 Carbonate ER] Cilostazol [Pletal] 50 mg PO BID 09/08/17 12/16/17 Spironolactone [Aldactone] 12.5 mg PO AC-LUNCH 09/08/17 12/16/17 Armodafinil [Nuvigil] 250 mg PO QAM 12/16/17 12/16/17 Calcium Carbonate [Calcium] 600 mg PO DAILY 12/16/17 12/16/17 Carvedilol [Coreg] 12.5 mg PO BID 12/16/17 12/16/17 Sacubitril/Valsartan [Entresto 24 1 tab PO BID 12/16/17 12/16/17 mg-26 mg Tablet] Previous Rx's Medication Instructions Recorded Furosemide [Lasix] 40 mg PO DAILY #30 tablet 01/14/15 Carbidopa-Levodopa 25-100 mg 1 each PO BID tab 12/20/17 [Sinemet 25-100 mg] Cefuroxime Axetil [Ceftin] 500 mg PO BID #10 tab 12/20/17 INSULIN LISPRO (HumaLOG) [humaLOG] 0 unit SQ ACHS #1 vial 12/20/17 Insulin Detemir [Levemir] 35 unit SQ HS syr 12/20/17 Insulin Detemir [Levemir] 42 unit SQ DAILY syr 12/20/17 Nicotine 14Mg/24Hr Patch [Habitrol] 1 patch TRANSDERM DAILY patch 12/20/17 Pantoprazole [Protonix] 40 mg PO AC-BRKFST tablet. 12/20/17 Allergies Allergy/AdvReac Type Severity Reaction Status Date / Time No Known Allergies Allergy Verified 12/16/17 16:06 Review of Systems ROS Statement: Those systems with pertinent positive or pertinent negative responses have been documented in the HPI. ROS Other: All systems not noted in ROS Statement are negative. Constitutional: Reports: weakness (Generalized) Eyes: Denies: vision change ENT: Denies: ear pain, throat pain, hearing loss Respiratory: Denies: cough, dyspnea Cardiovascular: Denies: chest pain, palpitations Endocrine: Reports: fatigue Gastrointestinal: Reports: nausea, vomiting. Denies: abdominal pain Genitourinary: Denies: urgency, dysuria Musculoskeletal: Denies: back pain Skin: Denies: rash, lesions Neurological: Reports: weakness (Generalized), confusion, other (Tremor). Denies: headache Psychiatric: Reports: depression Past Medical History Past Medical History: Heart Failure, CVA/TIA, Diabetes Mellitus, Hyperlipidemia , Hypertension Additional Past Medical History / Comment(s): Missing ring finger on right hand , Parkinson's History of Any Multi-Drug Resistant Organisms: None Reported Past Surgical History: Pacemaker Additional Past Surgical History / Comment(s): carotid artery surgery Past Anesthesia/Blood Transfusion Reactions: No Reported Reaction Type of Cardiac Device: Permanent Pacemaker Device Placement Date:: 2009 Past Psychological History: No Psychological Hx Reported Smoking Status: Current every day smoker Past Alcohol Use History: None Reported Past Drug Use History: None Reported - Past Family History Mother Family Medical History: Cancer Brother(s) Family Medical History: Cancer General Exam - General Exam Comments Initial Comments: GENERAL: Chronically ill-appearing, unwell, dehydrated elderly gentleman HENT: Normocephalic, Atraumatic. EYES: The sclera were anicteric and conjunctiva were pink and moist. Extraocular movements were intact and pupils were equal round and reactive to light. Eyelids were unremarkable. PULMONARY: Unlabored respirations. CARDIOVASCULAR: RRR Pacemaker in place over left chest ABDOMEN: Soft and nontender with normal bowel sounds. SKIN: Skin is clear with no lesions or rashes and otherwise unremarkable. NEUROLOGIC: Alert and oriented to person, place and year MUSCULOSKELETAL: Generalized muscle atrophy, no lower extremity edema LYMPHATICS: No significant lymphadenopathy is noted PSYCHIATRIC: Seems withdrawn and depressed Limitations: no limitations Course Vital Signs 01/16/18 01/16/18 02:16 03:19 Temperature 98.4 F Pulse Rate 87 79 Respiratory 16 16 Rate Blood Pressure 142/87 137/60 O2 Sat by Pulse 100 95 Oximetry EKG Findings - EKG Comments: EKG Findings:: EKG obtained upon arrival at 2:16 AM, rate is 81, the rhythm is ventricularly paced no obvious ST elevations or depressions no obvious ischemia or infarction Medical Decision Making - Medical Decision Making Patient was seen and evaluated immediately upon arrival to the emergency Department, vital signs reviewed in the history was obtained from the patient, his and review of medical records Patient's medication list was reviewed and it was noted that he is on lithium, lithium levels will be obtained Physical ill elderly gentleman with recurrent urinary tract infections resulting in sepsis A sepsis workup as well as lithium levels were ordered EKG was nonischemic findings Labs were reviewed, chronic kidney disease, noted to have an elevated lithium level Considering the patient's advanced age, lithium toxicity, generalized weakness I don't feel he is safe for discharge home. We'll plan to admit the patient for further monitoring. - Lab Data Result diagrams: 01/16/18 02:35 01/16/18 02:35 Lab Results 01/16/18 01/16/18 01/16/18 Range/Units 02:35 02:35 02:35 WBC 10.2 (3.8-10.6) k/uL RBC 3.87 L (4.30-5.90) m/uL Hgb 11.7 L (13.0-17.5) gm/dL Hct 36.4 L (39.0-53.0) % MCV 93.9 (80.0-100.0) fL MCH 30.2 (25.0-35.0) pg MCHC 32.2 (31.0-37.0) g/dL RDW 13.4 (11.5-15.5) % Plt Count 270 (150-450) k/uL Neutrophils % 70 % Lymphocytes % 19 % Monocytes % 4 % Eosinophils % 4 % Basophils % 1 % Neutrophils # 7.1 (1.3-7.7) k/uL Lymphocytes # 2.0 (1.0-4.8) k/uL Monocytes # 0.4 (0-1.0) k/uL Eosinophils # 0.4 (0-0.7) k/uL Basophils # 0.1 (0-0.2) k/uL PT (9.0-12.0) sec INR (<1.2) APTT (22.0-30.0) sec Sodium 141 (137-145) mmol/L Potassium 5.0 (3.5-5.1) mmol/L Chloride 110 H (98-107) mmol/L Carbon Dioxide 26 (22-30) mmol/L Anion Gap 5 mmol/L BUN 70 H (9-20) mg/dL Creatinine 2.22 H (0.66-1.25) mg/dL Est GFR (CKD-EPI)AfAm 33 (>60 ml/min/1.73 sqM) Est GFR (CKD-EPI)NonAf 28 (>60 ml/min/1.73 sqM) Glucose 98 (74-99) mg/dL Plasma Lactic Acid Josias (0.7-2.0) mmol/L Calcium 9.9 (8.4-10.2) mg/dL Total Bilirubin 0.4 (0.2-1.3) mg/dL AST 14 L (17-59) U/L ALT 32 (21-72) U/L Alkaline Phosphatase 69 (38-126) U/L Total Creatine Kinase 35 L (55-170) U/L CK-MB (CK-2) 1.8 (0.0-2.4) ng/mL CK-MB (CK-2) Rel Index 5.1 Troponin I 0.018 (0.000-0.034) ng/mL Total Protein 6.4 (6.3-8.2) g/dL Albumin 3.6 (3.5-5.0) g/dL Urine Color Urine Appearance (Clear) Urine pH (5.0-8.0) Ur Specific Odd (1.001-1.035) Urine Protein (Negative) Urine Glucose (UA) (Negative) Urine Ketones (Negative) Urine Blood (Negative) Urine Nitrite (Negative) Urine Bilirubin (Negative) Urine Urobilinogen (<2.0) mg/dL Ur Leukocyte Esterase (Negative) Manuelito 2.0 H* mmol/L 01/16/18 01/16/18 01/16/18 Range/Units 02:35 02:35 03:15 WBC (3.8-10.6) k/uL RBC (4.30-5.90) m/uL Hgb (13.0-17.5) gm/dL Hct (39.0-53.0) % MCV (80.0-100.0) fL MCH (25.0-35.0) pg MCHC (31.0-37.0) g/dL RDW (11.5-15.5) % Plt Count (150-450) k/uL Neutrophils % % Lymphocytes % % Monocytes % % Eosinophils % % Basophils % % Neutrophils # (1.3-7.7) k/uL Lymphocytes # (1.0-4.8) k/uL Monocytes # (0-1.0) k/uL Eosinophils # (0-0.7) k/uL Basophils # (0-0.2) k/uL PT 9.8 (9.0-12.0) sec INR 1.0 (<1.2) APTT 22.3 (22.0-30.0) sec Sodium (137-145) mmol/L Potassium (3.5-5.1) mmol/L Chloride (98-107) mmol/L Carbon Dioxide (22-30) mmol/L Anion Gap mmol/L BUN (9-20) mg/dL Creatinine (0.66-1.25) mg/dL Est GFR (CKD-EPI)AfAm (>60 ml/min/1.73 sqM) Est GFR (CKD-EPI)NonAf (>60 ml/min/1.73 sqM) Glucose (74-99) mg/dL Plasma Lactic Acid Josias 0.7 (0.7-2.0) mmol/L Calcium (8.4-10.2) mg/dL Total Bilirubin (0.2-1.3) mg/dL AST (17-59) U/L ALT (21-72) U/L Alkaline Phosphatase (38-126) U/L Total Creatine Kinase (55-170) U/L CK-MB (CK-2) (0.0-2.4) ng/mL CK-MB (CK-2) Rel Index Troponin I (0.000-0.034) ng/mL Total Protein (6.3-8.2) g/dL Albumin (3.5-5.0) g/dL Urine Color Light Yellow Urine Appearance Clear (Clear) Urine pH 7.0 (5.0-8.0) Ur Specific Odd 1.010 (1.001-1.035) Urine Protein Trace H (Negative) Urine Glucose (UA) Negative (Negative) Urine Ketones Negative (Negative) Urine Blood Negative (Negative) Urine Nitrite Negative (Negative) Urine Bilirubin Negative (Negative) Urine Urobilinogen <2.0 (<2.0) mg/dL Ur Leukocyte Esterase Negative (Negative) Manuelito mmol/L Disposition Clinical Impression: [place] toxicity, Generalized weakness, Chronic kidney disease (CKD) Disposition: ADMITTED IP TO THIS [facility] Condition: Stable Referrals: Aria Zarco DO [Primary Care Provider] - 1-2 days
[2018-01-16 02:45] LABS: Basophils # (A) 0.1 k/uL (0-0.2); Basophils % (A) 1 %; Eosinophils # (A) 0.4 k/uL (0-0.7); Eosinophils % (A) 4 %; HCT 36.4 % (39.0-53.0); HGB 11.7 gm/dL (13.0-17.5); Lymphocytes % (A) 19 %; MCH 30.2 pg (25.0-35.0); MCHC 32.2 g/dL (31.0-37.0); MCV 93.9 fL (80.0-100.0); Mean Platelet Volume 6.9; Monocytes # (A) 0.4 k/uL (0-1.0); Monocytes % (A) 4 %; Neutrophils # (A) 7.1 k/uL (1.3-7.7); Neutrophils % (A) 70 %; Platelet Count 270 k/uL (150-450); RBC 3.87 m/uL (4.30-5.90); RDW 13.4 % (11.5-15.5); WBC 10.2 k/uL (3.8-10.6)
[2018-01-16 02:54] LABS: Partial Thromboplastin Time 22.3 sec (22.0-30.0); Prothrombin Time 9.8 sec (9.0-12.0)
[2018-01-16 02:55] LABS: Albumin 3.6 g/dL (3.5-5.0); Calcium 9.9 mg/dL (8.4-10.2); Total Bilirubin 0.4 mg/dL (0.2-1.3); Total Protein 6.4 g/dL (6.3-8.2)
[2018-01-16 03:11] LABS: Creatine Kinase MB 1.8 ng/mL (0.0-2.4); Troponin I 0.018 ng/mL (0.000-0.034)
--- NOTE | 2018-01-16 03:14 | XR ---
EXAMINATION TYPE: XR chest 2V DATE OF EXAM: 01/16/2018 COMPARISON: 12/20/2017 HISTORY: Heart failure. Weakness TECHNIQUE: Frontal and lateral views of the chest are obtained. FINDINGS: There is mild pulmonary congestion. There is left axillary pacemaker with the lead tips in the right ventricle. Heart is probably enlarged. Thoracic aorta is atheromatous. I see no definite p leural effusion. IMPRESSION: Mild new pulmonary congestion compared to old exam. Minimal heart failure is possible.
[2018-01-16 03:25] LABS: Appearance,Urine Clear (Clear); Bilirubin,Urine Negative (Negative); Blood,Urine Negative (Negative); Color,Urine Light Yellow; Glucose,Urine (UA) Negative (Negative); Ketones,Urine Negative (Negative); Leukocyte Esterase,Urine Negative (Negative); Nitrite,Urine Negative (Negative); Protein,Urine Trace (Negative); Urobilinogen,Urine <2.0 mg/dL (<2.0)
[2018-01-16] MEDS: SODIUM CHLORIDE 0.9% 500 ML 500 ML IV SCH (03:29)
[2018-01-16] MEDS ORDERED: NALOXONE 0.4 MG/ML 1 ML VIAL IV PRN (03:53)
[2018-01-16 05:35] VITALS: BMI 29.4
[2018-01-16] MEDS: SODIUM CHLORIDE 0.9% 1,000 ML IV SCH (05:46)
[2018-01-16 06:05] LABS: Glucose,Whole Blood 119 mg/dL (75-99)
[2018-01-16] MEDS: INSULIN ASPART 100 UNIT/ML 1 ML 10 ML VIAL SQ SCH ×4 (07:05→20:25)
[2018-01-16] MEDS ORDERED: SACUBITRIL/VALSARTAN 24 MG-26 MG TABLET PO SCH (09:00)
[2018-01-16] MEDS: CILOSTAZOL 100 MG TAB PO SCH ×2 (10:19→20:26)
[2018-01-16] MEDS: CARBIDOPA-LEVODOPA 25-100 MG 1 EACH TAB PO SCH ×2 (10:19→20:26)
[2018-01-16] MEDS: CARVEDILOL 12.5 MG TAB PO SCH ×2 (10:19→20:26)
[2018-01-16 12:26] LABS: Glucose,Whole Blood 162 mg/dL (75-99)
--- NOTE | 2018-01-16 14:21 | P.HPIM ---
History of Present Illness 72-year-old male with the past History of congestive heart failure came in with a tight refusal to eat to generalized weakness and unable to ambulate has been going on for last week patient memory has been going down significantly for few months, patient in the past was treated for UTIs when he had similar symptoms in the past because of which the brought him here. Although there is no evidence of UTI and pneumonia nor any other infection patient is definitely lethargic. Has been vomiting with the worsening renal function. Patient baseline creatinine in the past was 1.2 now 2.2. Patient does have congestive heart failure history ejection fraction of around 35-40%. Patient chest x-ray did show some pulmonary edema but the because of the worsening renal function until nephrology and cardiology evaluated several hold off on diuretic therapy along with Entresto area because of the worsening functional renal function is lithium levels went up and patient was believed to have lithium toxicity because of which patient was admitted from ER last night. Patient potassium is elevated as well developed because of renal dysfunction Review of Systems Patient denied any pain anywhere denied any cough dysuria. Much of the review of systems unable to obtain because of his clinical condition Past Medical History Past Medical History: Heart Failure, CVA/TIA, Diabetes Mellitus, Hyperlipidemia , Hypertension Additional Past Medical History / Comment(s): Missing ring finger on right hand , Parkinson's History of Any Multi-Drug Resistant Organisms: None Reported Past Surgical History: Pacemaker Additional Past Surgical History / Comment(s): carotid artery surgery Past Anesthesia/Blood Transfusion Reactions: No Reported Reaction Type of Cardiac Device: Permanent Pacemaker Device Placement Date:: 2009 Past Psychological History: No Psychological Hx Reported Smoking Status: Current every day smoker Past Alcohol Use History: None Reported Past Drug Use History: None Reported - Past Family History Mother Family Medical History: Cancer Brother(s) Family Medical History: Cancer Medications and Allergies Home Medications Medication Instructions Recorded Confirmed Type Aspirin 81 mg PO HS 01/11/15 01/16/18 History Atorvastatin [Lipitor] 40 mg PO HS 01/11/15 01/16/18 History Ferrous Sulfate [Iron (65 MG 325 mg PO AC-LUNCH 01/11/15 01/16/18 History Elemental)] [place] Carbonate [[place] 300 mg PO DAILY 01/11/15 01/16/18 History Carbonate ER] Furosemide [Lasix] 40 mg PO DAILY #30 tablet 01/14/15 01/16/18 Rx Cilostazol [Pletal] 50 mg PO BID 09/08/17 01/16/18 History Spironolactone [Aldactone] 12.5 mg PO AC-LUNCH 09/08/17 01/16/18 History Armodafinil [Nuvigil] 250 mg PO QAM 12/16/17 01/16/18 History Calcium Carbonate [Calcium] 600 mg PO DAILY 12/16/17 01/16/18 History Carvedilol [Coreg] 12.5 mg PO BID 12/16/17 01/16/18 History Sacubitril/Valsartan [Entresto 24 1 tab PO BID 12/16/17 01/16/18 History mg-26 mg Tablet] Carbidopa-Levodopa 25-100 mg 1 each PO BID tab 12/20/17 01/16/18 Rx [Sinemet 25-100 mg] Insulin Detemir [Levemir] 42 unit SQ DAILY syr 12/20/17 01/16/18 Rx Cranberry Fruit Concentrate 450 mg PO BID 01/16/18 01/16/18 History [Cranberry] Famotidine [Pepcid] 20 mg PO BID 01/16/18 01/16/18 History Insulin Aspart [NovoLOG See Protocol SQ DIRECTED 01/16/18 01/16/18 History (formulary)] Insulin Detemir [Levemir] 42 unit SQ HS 01/16/18 01/16/18 History Nicotine 21Mg/24Hr Patch [Habitrol] 21 mg TOPICAL DAILY 01/16/18 01/16/18 History metFORMIN HCL [Glucophage] 500 mg PO BID 01/16/18 01/16/18 History Allergies Allergy/AdvReac Type Severity Reaction Status Date / Time No Known Allergies Allergy Verified 01/16/18 11:09 Physical Exam Vitals: Vital Signs Temp Pulse Pulse Pulse Resp BP BP 01/16/18 08:00 67 12 01/16/18 06:54 98.2 F 67 12 121/71 01/16/18 05:18 97.7 F 77 16 147/67 01/16/18 05:13 86 18 01/16/18 04:52 77 16 102/52 01/16/18 03:19 79 16 137/60 01/16/18 02:16 98.4 F 87 16 142/87 Pulse Ox 01/16/18 08:00 01/16/18 06:54 98 01/16/18 05:18 96 01/16/18 05:13 01/16/18 04:52 95 01/16/18 03:19 95 01/16/18 02:16 100 Intake and Output 01/15/18 01/16/18 01/16/18 22:59 06:59 14:59 Other: Voiding Method Diaper Diaper # Voids 1 Weight 95.7 kg PHYSICAL EXAMINATION: GENERAL: The patient is alert severely lethargic unable to assess orientation HEENT: Pupils are round and equally reacting to light. EOMI. No scleral icterus. No conjunctival pallor. Normocephalic, atraumatic. No pharyngeal erythema. No thyromegaly. CARDIOVASCULAR: S1 and S2 present. No murmurs, rubs, or gallops. PULMONARY: Chest is clear to auscultation, no wheezing or crackles. ABDOMEN: Soft, nontender, nondistended, normoactive bowel sounds. No palpable organomegaly. MUSCULOSKELETAL: No joint swelling or deformity. EXTREMITIES: No cyanosis, clubbing, or pedal edema. NEUROLOGICAL: Patient both legs strength is 4/5 appears to be generalized weakness rather than focal weakness related to several vascular accident SKIN: No rashes. Results CBC & Chem 7: 01/16/18 02:35 01/16/18 02:35 Labs: Abnormal Lab Results - Last 24 Hours (Table) 01/16/18 01/16/18 01/16/18 Range/Units 02:35 02:35 02:35 RBC 3.87 L (4.30-5.90) m/uL Hgb 11.7 L (13.0-17.5) gm/dL Hct 36.4 L (39.0-53.0) % Chloride 110 H (98-107) mmol/L BUN 70 H (9-20) mg/dL Creatinine 2.22 H (0.66-1.25) mg/dL POC Glucose (mg/dL) (75-99) mg/dL AST 14 L (17-59) U/L Total Creatine Kinase 35 L (55-170) U/L Urine Protein (Negative) [place] 2.0 H* mmol/L 01/16/18 01/16/18 01/16/18 Range/Units 03:15 06:03 12:17 RBC (4.30-5.90) m/uL Hgb (13.0-17.5) gm/dL Hct (39.0-53.0) % Chloride (98-107) mmol/L BUN (9-20) mg/dL Creatinine (0.66-1.25) mg/dL POC Glucose (mg/dL) 119 H 162 H (75-99) mg/dL AST (17-59) U/L Total Creatine Kinase (55-170) U/L Urine Protein Trace H (Negative) [place] mmol/L Microbiology - Last 24 Hours (Table) 01/16/18 03:15 Urine Culture - Preliminary Urine,Catheterized Thrombosis Risk Factor Assmnt - Choose All That Apply Any of the Below Risk Factors Present?: Yes Each Factor Represents 1 point: Obesity (BMI >25), Swollen legs (current) Other Risk Factors: Yes Each Risk Factor Represents 2 Points: Age 61-74 years Other congenital or acquired thrombophilia - If yes, enter type in comment: No Thrombosis Risk Factor Assessment Total Risk Factor Score: 4 Thrombosis Risk Factor Assessment Level: Moderate Risk Assessment and Plan Plan: -Possible lithium toxicity: [place] will be held monitor him. -Acute renal failure: Secondary to excessive diuretic therapy along with lithium. Nephrology will be consulted. Patient is not being started on IV fluids because of his congestive heart failure history and possibility of mild CHF on the chest x-ray. -Congestive heart failure, patient appears to be fairly euvolemic at this time are maybe mild heart failure, cardiology will be consulted BNP will be obtained patient does not have any significantly elevated JVD or pedal edema. Diuretic therapy is being held because of worsening renal function which I believe secondary to intravascular depletion and excessive diuretic therapy. -Altered mental status secondary to metabolic and toxic encephalopathy multifactorial and secondary to above-mentioned reasons -CVA/TIA in the past -Type 2 diabetes mellitus -Hyperlipidemia -Hypertension
--- NOTE | 2018-01-16 14:58 | CT ---
EXAMINATION TYPE: CT brain wo con DATE OF EXAM: 01/16/2018 COMPARISON: 12/16/2017 HISTORY: Altered mental status. CT DLP: 852.1 mGycm Automated exposure control for dose reduction was used. FINDINGS: There is large area of hypodensity in the right occipital lobe consistent with old infarct. There is no mass effect nor midline shift. There is no evidence of intracranial hemorrhage. The calvarium is i ntact. IMPRESSION: OLD RIGHT OCCIPITAL LOBE INFARCT. CEREBRAL ATROPHY. NO ACUTE INTRACRANIAL ABNORMALITY. NO CHANGE.
[2018-01-16 17:27] LABS: Glucose,Whole Blood 162 mg/dL (75-99)
[2018-01-16] MEDS: ATORVASTATIN 40 MG TAB PO SCH (20:26)
[2018-01-16] MEDS: ASPIRIN 81 MG PO SCH (20:26)
[2018-01-16] MEDS: FAMOTIDINE 20 MG TAB PO SCH (20:27)
[2018-01-16 20:31] LABS: Glucose,Whole Blood 151 mg/dL (75-99)
--- NOTE | 2018-01-16 20:46 | P.CNNES ---
History of Present Illness Consult date: 01/16/18 History of Present Illness: Patient is a 72-year-old man was admitted to the hospital with lithium toxicity chronic renal disease and generalized weakness. Neurology is requested to see the patient regarding altered mental status. Patient is a poor historian. She is obtained primarily from the chart. Apparently patient has not been eating and refusing to take his medications at home for the past 2 days. Has been having reduced appetite and feeling very sleepy. About this the patient states he feels sick. He denies headache. He denies pain in his body. Eyes nausea. Early the patient was vomiting. Patient is currently awake and alert and has no specific complaint except that he feels sick. He denies any visual changes or any new weakness or numbness. Apparently his been having nausea and vomiting. 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 The patient takes lithium 300 mg daily. He is afebrile and his vital signs are stable. He had a CT of the brain in the emergency room which showed old right occipital infarct and cerebral atrophy. No acute intracranial abnormality was seen. The patient was recently hospitalized on month ago with UTI and encephalopathy. Review of Systems ROS unobtainable: due to mental status Past Medical History Past Medical History: Heart Failure, CVA/TIA, Diabetes Mellitus, Hyperlipidemia , Hypertension Additional Past Medical History / Comment(s): Missing ring finger on right hand , Parkinson's History of Any Multi-Drug Resistant Organisms: None Reported Past Surgical History: Pacemaker Additional Past Surgical History / Comment(s): carotid artery surgery Past Anesthesia/Blood Transfusion Reactions: No Reported Reaction Type of Cardiac Device: Permanent Pacemaker Device Placement Date:: 2009 Past Psychological History: No Psychological Hx Reported Smoking Status: Current every day smoker Past Alcohol Use History: None Reported Past Drug Use History: None Reported - Past Family History Mother Family Medical History: Cancer Brother(s) Family Medical History: Cancer Medications and Allergies Home Medications Medication Instructions Recorded Confirmed Type Aspirin 81 mg PO HS 01/11/15 01/16/18 History Atorvastatin [Lipitor] 40 mg PO HS 01/11/15 01/16/18 History Ferrous Sulfate [Iron (65 MG 325 mg PO AC-LUNCH 01/11/15 01/16/18 History Elemental)] [place] Carbonate [[place] 300 mg PO DAILY 01/11/15 01/16/18 History Carbonate ER] Furosemide [Lasix] 40 mg PO DAILY #30 tablet 01/14/15 01/16/18 Rx Cilostazol [Pletal] 50 mg PO BID 09/08/17 01/16/18 History Spironolactone [Aldactone] 12.5 mg PO AC-LUNCH 09/08/17 01/16/18 History Armodafinil [Nuvigil] 250 mg PO QAM 12/16/17 01/16/18 History Calcium Carbonate [Calcium] 600 mg PO DAILY 12/16/17 01/16/18 History Carvedilol [Coreg] 12.5 mg PO BID 12/16/17 01/16/18 History Sacubitril/Valsartan [Entresto 24 1 tab PO BID 12/16/17 01/16/18 History mg-26 mg Tablet] Carbidopa-Levodopa 25-100 mg 1 each PO BID tab 12/20/17 01/16/18 Rx [Sinemet 25-100 mg] Insulin Detemir [Levemir] 42 unit SQ DAILY syr 12/20/17 01/16/18 Rx Cranberry Fruit Concentrate 450 mg PO BID 01/16/18 01/16/18 History [Cranberry] Famotidine [Pepcid] 20 mg PO BID 01/16/18 01/16/18 History Insulin Aspart [NovoLOG See Protocol SQ DIRECTED 01/16/18 01/16/18 History (formulary)] Insulin Detemir [Levemir] 42 unit SQ HS 01/16/18 01/16/18 History Nicotine 21Mg/24Hr Patch [Habitrol] 21 mg TOPICAL DAILY 01/16/18 01/16/18 History metFORMIN HCL [Glucophage] 500 mg PO BID 01/16/18 01/16/18 History Allergies Allergy/AdvReac Type Severity Reaction Status Date / Time No Known Allergies Allergy Verified 01/16/18 11:09 Physical Examination - Vital Signs Vital Signs: Vital Signs Temp Pulse Pulse Pulse Resp BP BP 01/16/18 20:13 98.3 F 86 16 112/61 01/16/18 16:00 61 14 01/16/18 15:00 98.0 F 61 14 132/54 01/16/18 08:00 67 12 01/16/18 06:54 98.2 F 67 12 121/71 01/16/18 05:18 97.7 F 77 16 147/67 01/16/18 05:13 86 18 01/16/18 04:52 77 16 102/52 01/16/18 03:19 79 16 137/60 01/16/18 02:16 98.4 F 87 16 142/87 Pulse Ox 01/16/18 20:13 93 L 01/16/18 16:00 01/16/18 15:00 97 01/16/18 08:00 01/16/18 06:54 98 01/16/18 05:18 96 01/16/18 05:13 01/16/18 04:52 95 01/16/18 03:19 95 01/16/18 02:16 100 Intake and Output 01/16/18 01/16/18 01/16/18 06:59 14:59 22:59 Other: Voiding Method Diaper Diaper Diaper # Voids 1 Weight 95.7 kg - Constitutional General appearance: average body habitus - EENT EENT: PERRL - Respiratory Respiratory: lungs clear - Cardiovascular Cardiovascular: regular rate, normal S1, normal S2 - Neurologic Neurologic examination: Mental status: He was awake he was alert he was oriented to person he knew he was in the hospital he knew his date and he knew the city he lived in. He had difficulty doing calculations. He was able to count. He was able to spell. There was no a aphasia or dysarthria. Cranial nerve examination: Cranial nerves II through XII are grossly intact next Motor examination no focal weakness detected next Sensory examination: Intact to light touch Deep tendon reflexes: 1+ and symmetric Gait: Could not be tested Results - Laboratory Findings CBC and BMP: 01/16/18 02:35 01/16/18 02:35 Abnormal Lab Findings: Abnormal Labs 01/16/18 01/16/18 01/16/18 02:35 02:35 02:35 RBC 3.87 L Hgb 11.7 L Hct 36.4 L Chloride 110 H BUN 70 H Creatinine 2.22 H POC Glucose (mg/dL) AST 14 L Total Creatine Kinase 35 L Urine Protein [place] 2.0 H* 01/16/18 01/16/18 01/16/18 03:15 06:03 12:17 RBC Hgb Hct Chloride BUN Creatinine POC Glucose (mg/dL) 119 H 162 H AST Total Creatine Kinase Urine Protein Trace H [place] 01/16/18 17:15 RBC Hgb Hct Chloride BUN Creatinine POC Glucose (mg/dL) 162 H AST Total Creatine Kinase Urine Protein [place] Assessment and Plan (1) [place] toxicity Current Visit: Yes Status: Acute SNOMED Code(s): 811572956 (2) Generalized weakness Current Visit: Yes Status: Acute SNOMED Code(s): 95285170 (3) History of stroke Current Visit: Yes Status: Chronic SNOMED Code(s): 980895886 (4) ANTHONY (acute kidney injury) Current Visit: No Status: Acute SNOMED Code(s): 17979209 (5) Altered mental status Current Visit: Yes Status: Acute SNOMED Code(s): 723030235 Plan: The patient is a 72-year-old man with kidney disease who has been having poor appetite generalized weakness and nausea and vomiting for the past few days. Neurology is requested to see the patient regarding altered mental status. The patient is alert and oriented 2. His neurologic examination is nonfocal. He has had a CAT scan of the brain which showed an old occipital infarct. His change in mentation is likely due to underlying lithium toxicity. He is being managed for acute kidney injury. Recommend EEG.
[2018-01-16] MEDS: INSULIN DETEMIR 100 UNIT/ML 10 ML VIAL SQ SCH (21:48)
[2018-01-17] MEDS: SODIUM CHLORIDE 0.9% 1,000 ML IV SCH (03:37)
[2018-01-17 07:28] LABS: Glucose,Whole Blood 113 mg/dL (75-99)
[2018-01-17] MEDS: INSULIN ASPART 100 UNIT/ML 1 ML 10 ML VIAL SQ SCH ×4 (07:59→20:46)
[2018-01-17] MEDS: CARBIDOPA-LEVODOPA 25-100 MG 1 EACH TAB PO SCH ×2 (09:39→20:42)
[2018-01-17] MEDS: CILOSTAZOL 100 MG TAB PO SCH ×2 (09:39→20:43)
[2018-01-17] MEDS: CARVEDILOL 12.5 MG TAB PO SCH (09:40)
[2018-01-17] MEDS: CALCIUM CARBONATE 500 MG CHEWABLE PO SCH (09:40)
[2018-01-17] MEDS: FAMOTIDINE 20 MG TAB PO SCH (09:40)
[2018-01-17 10:58] LABS: HCT 36.4 % (39.0-53.0); HGB 11.7 gm/dL (13.0-17.5); Hypochromasia Slight; MCH 31.2 pg (25.0-35.0); MCHC 32.2 g/dL (31.0-37.0); MCV 96.9 fL (80.0-100.0); Mean Platelet Volume 7.8; Platelet Count 263 k/uL (150-450); RBC 3.75 m/uL (4.30-5.90); RDW 13.3 % (11.5-15.5); WBC 8.9 k/uL (3.8-10.6)
[2018-01-17 11:17] LABS: Calcium 9.5 mg/dL (8.4-10.2); Potassium 5.1 mmol/L (3.5-5.1)
[2018-01-17 11:54] LABS: Glucose,Whole Blood 186 mg/dL (75-99)
--- NOTE | 2018-01-17 13:14 | P.PCN ---
Preoperative Diagnosis: [facility] medical biventricular ICD interrogated Lukas Gabriel [id number] Q ESTATE CONSERVATOR-D P waves 2.0 mV pacing impedance 400 ohms pacing threshold 0.75 V at 0.5 ms R waves greater than 12 mV pacing threshold 0.8 V at 0.5 ms pacing impedance of 490 ohms LV pacing threshold 1.75 V at 1.5 ms, proximal for-RV coil, impedance 390 ohms High-voltage impedance 65 ohms DDDR 60-120. Biventricular pacing 94% at least No arrhythmias no abnormalities noted Impression normal biventricular ICD function
[2018-01-17 13:51] LABS: Hemoglobin A1C 7.7 % (4.0-6.0)
[2018-01-17] MEDS ORDERED: SPIRONOLACTONE 25 MG TAB PO SCH (14:15)
--- NOTE | 2018-01-17 14:19 | P.CRDCN ---
History of Present Illness History of present illness: Mr. Chan is a pleasant 72-year-old male past medical history significant for dilated cardiomyopathy s/p ICD, nonischemic cardiomyopathy, hypertension, dyslipidemia, diabetes mellitus, CVA 11 years ago and ongoing nicotine dependence. He follows with Dr. Randle in [place] for cardiology. We have been asked to see him in consultation for pacemaker malfunction. He is seen and examined resting comfortably in bed with myself and Dr. Ring. Per his he has been increasingly weak and unsteady on his feet over the previous week or so. He typically uses a walker and gets around fairly well. He denies chest pain, shortness of breath, dizziness or palpitations. He also denies PND or othopnea. EKG on arrival indicates possibly pacemaker malfunction , interrogation was performed and read by Dr. Ring. His pacemaker is functioning normally with 46% battery life remaining. Entresto, carvedilol, lasix and aldactone have been held since admission. Chest xray mild pulmonary congestion. Laboratory data reviewed, hemoglobin 11.7, platelets 263, sodium 145, potassium 5.1, creatinine 1.76, NT proBNP 3000. Most recent echocardiogram performed September 2017 reveals moderately impaired left ventricular systolic function with ejection fraction 35-40%, global hypokinesia , severely dilated left atrium, mild aortic valve sclerosis, mild MR and mild TR. Review of Systems At the time of my exam: CONSTITUTIONAL: Denies fever. Denies chills. EYES: Denies blurred vision. Denies vision changes. Denies eye pain. EARS, NOSE, MOUTH & THROAT: Denies headache. Denies sore throat. Denies ear pain. CARDIOVASCULAR: Denies chest pain. Denies shortness of breath. Denies orthopnea. Denies PND. Denies palpitations. RESPIRATORY: Denies cough. GASTROINTESTINAL: Denies abdominal pain. Denies diarrhea. Denies constipation. Denies nausea. Denies vomiting. MUSCULOSKELETAL: Denies myalgias. INTEGUMENTARY: Denies pruitis. Denies rash. NEUROLOGIC: Denies numbness. Denies tingling. Denies weakness. PSYCHIATRIC: Denies anxiety. Denies depression. ENDOCRINE: Denies fatigue. Denies weight change. Denies polydipsia. Denies polyurina. GENITOURINARY: Denies burning, hematuria or urgency with micturation. HEMATOLOGIC: Denies history of anemia. Denies bleeding. Past Medical History Past Medical History: Heart Failure, CVA/TIA, Diabetes Mellitus, Hyperlipidemia , Hypertension Additional Past Medical History / Comment(s): Missing ring finger on right hand , Parkinson's History of Any Multi-Drug Resistant Organisms: None Reported Past Surgical History: Pacemaker Additional Past Surgical History / Comment(s): carotid artery surgery Past Anesthesia/Blood Transfusion Reactions: No Reported Reaction Type of Cardiac Device: Permanent Pacemaker Device Placement Date:: 2009 Past Psychological History: No Psychological Hx Reported Smoking Status: Current every day smoker Past Alcohol Use History: None Reported Past Drug Use History: None Reported - Past Family History Mother Family Medical History: Cancer Brother(s) Family Medical History: Cancer Medications and Allergies Home Medications Medication Instructions Recorded Confirmed Type Aspirin 81 mg PO HS 01/11/15 01/16/18 History Atorvastatin [Lipitor] 40 mg PO HS 01/11/15 01/16/18 History Ferrous Sulfate [Iron (65 MG 325 mg PO AC-LUNCH 01/11/15 01/16/18 History Elemental)] [place] Carbonate [[place] 300 mg PO DAILY 01/11/15 01/16/18 History Carbonate ER] Furosemide [Lasix] 40 mg PO DAILY #30 tablet 01/14/15 01/16/18 Rx Cilostazol [Pletal] 50 mg PO BID 09/08/17 01/16/18 History Spironolactone [Aldactone] 12.5 mg PO AC-LUNCH 09/08/17 01/16/18 History Armodafinil [Nuvigil] 250 mg PO QAM 12/16/17 01/16/18 History Calcium Carbonate [Calcium] 600 mg PO DAILY 12/16/17 01/16/18 History Carvedilol [Coreg] 12.5 mg PO BID 12/16/17 01/16/18 History Sacubitril/Valsartan [Entresto 24 1 tab PO BID 12/16/17 01/16/18 History mg-26 mg Tablet] Carbidopa-Levodopa 25-100 mg 1 each PO BID tab 12/20/17 01/16/18 Rx [Sinemet 25-100 mg] Insulin Detemir [Levemir] 42 unit SQ DAILY syr 12/20/17 01/16/18 Rx Cranberry Fruit Concentrate 450 mg PO BID 01/16/18 01/16/18 History [Cranberry] Famotidine [Pepcid] 20 mg PO BID 01/16/18 01/16/18 History Insulin Aspart [NovoLOG See Protocol SQ DIRECTED 01/16/18 01/16/18 History (formulary)] Insulin Detemir [Levemir] 42 unit SQ HS 01/16/18 01/16/18 History Nicotine 21Mg/24Hr Patch [Habitrol] 21 mg TOPICAL DAILY 01/16/18 01/16/18 History metFORMIN HCL [Glucophage] 500 mg PO BID 01/16/18 01/16/18 History Allergies Allergy/AdvReac Type Severity Reaction Status Date / Time No Known Allergies Allergy Verified 01/16/18 11:09 Physical Exam Vitals: Vital Signs Temp Pulse Pulse Resp BP Pulse Ox 01/17/18 07:00 98.2 F 80 16 128/69 94 L 01/17/18 01:04 97.0 F L 66 15 104/51 93 L 01/16/18 20:13 98.3 F 86 16 112/61 93 L 01/16/18 16:00 61 14 01/16/18 15:00 98.0 F 61 14 132/54 97 Intake and Output 01/16/18 01/17/18 01/17/18 22:59 06:59 14:59 Intake Total 80 Balance 80 Intake: Intake, IV Titration 80 Amount Sodium Chloride 0.9% 1, 80 000 ml @ 20 mls/hr IV . Q24H [facility] Rx#:[id number] Other: Voiding Method Diaper # Voids 1 Blood pressure 128/69 heart rate 88 afebrile maintaining oxygen saturation on room air GENERAL: This is a 72-year-old male in no apparent distress at the time of my examination. HEENT: Head is atraumatic, normocephalic. Pupils are equal, round. Sclerae anicteric. Conjunctivae are clear. Mucous membranes of the mouth are moist. Neck is supple. There is no jugular venous distention. No carotid bruit is heard. LUNGS: Clear to auscultation no wheezes, rales or rhonchi. No chest wall tenderness is noted on palpation or with deep breathing. HEART: Regular rate and rhythm without murmurs, rubs or gallops. S1 and S2 heard. ABDOMEN: Soft, nontender. Bowel sounds are heard. No organomegaly noted. EXTREMITIES: No evidence of peripheral edema and no calf tenderness noted. VASCULAR: Radial and dorsalis pedis pulses palpated, no evidence of clubbing. NEUROLOGIC: Patient is awake, alert and oriented x3. Results 01/17/18 09:28 01/17/18 09:28 CBC 01/17/18 Range/Units 09:28 WBC 8.9 (3.8-10.6) k/uL RBC 3.75 L (4.30-5.90) m/uL Hgb 11.7 L (13.0-17.5) gm/dL Hct 36.4 L (39.0-53.0) % Plt Count 263 (150-450) k/uL Comprehensive Metabolic Panel 01/17/18 Range/Units 09:28 Sodium 145 (137-145) mmol/L Potassium 5.1 (3.5-5.1) mmol/L Chloride 113 H (98-107) mmol/L Carbon Dioxide 25 (22-30) mmol/L BUN 42 H (9-20) mg/dL Creatinine 1.76 H (0.66-1.25) mg/dL Glucose 135 H (74-99) mg/dL Calcium 9.5 (8.4-10.2) mg/dL Current Medications Generic Name Dose Route Start Last Admin Trade Name Freq PRN Reason Stop Dose Admin Aspirin 81 mg 01/16/18 21:00 01/16/18 20:26 Aspirin PO 81 mg HS [facility]ENT Administration Atorvastatin Calcium 40 mg 01/16/18 21:00 01/16/18 20:26 Lipitor PO 40 mg HS IVNCENT Administration Calcium Carbonate/Glycine 500 mg 01/17/18 09:00 01/17/18 09:40 Tums PO 500 mg DAILY [facility] Administration Carbidopa/Levodopa 1 each 01/16/18 09:00 01/17/18 09:39 Sinemet 25-100 PO 1 each BID [facility] Administration Carvedilol 6.25 mg 01/17/18 17:30 Coreg PO BID-W/MEALS VINCENT Cilostazol 50 mg 01/16/18 09:00 01/17/18 09:39 Pletal PO 50 mg BID [facility] Administration Famotidine 20 mg 01/16/18 21:00 01/17/18 09:40 Pepcid PO 20 mg BID [facility] Administration Sodium Chloride 1,000 mls @ 20 mls/hr 01/16/18 04:00 01/17/18 03:37 Saline 0.9% IV Not Given .Q24H [facility] Insulin Aspart 0 unit 01/16/18 07:30 01/17/18 13:03 Novolog SQ 2 unit ACHS [facility]ENT Administration Protocol Insulin Detemir 42 unit 01/16/18 21:00 01/16/18 21:48 Levemir SQ 42 unit HS [facility] Administration Naloxone HCl 0.2 mg 01/16/18 03:53 Narcan IV Q2M PRN Opioid Reversal Non-Formulary Medication 250 mg 01/17/18 09:00 Armodafinil [Nuvigil] PO QAM [facility] Intake and Output 01/16/18 01/17/18 01/17/18 22:59 06:59 14:59 Intake Total 80 Balance 80 Intake: Intake, IV Titration 80 Amount Sodium Chloride 0.9% 1, 80 000 ml @ 20 mls/hr IV . Q24H [facility] Rx#:[id number] Other: Voiding Method Diaper # Voids 1 01/17/18 09:28 01/17/18 09:28 Assessment and Plan Assessment: ASSESSMENT Generalized weakness with exertion, may be related to hypotension. Nonischemic dilated cardiomyopathy s/p ICD placement Hypertension Dyslipidemia CVA Diabetes mellitus Chronic kidney disease, GFR 37, Stage 3B PLAN Decrease coreg to 6.25 mg BID, resume entresto and aldactone. Hold lasix. Repeat echocardiogram and doppler study to assess cardiac structure and function. Obtain orthostatic vital signs in the morning after medications have been resumed. Further recommendations to follow, thank you kindly for this consultation. Nurse Practitioner note has been reviewed, I agree with a documented findings and plan of care. Patient was seen and examined.
[2018-01-17] MEDS ORDERED: CILOSTAZOL 100 MG TAB ONE (14:43)
--- NOTE | 2018-01-17 16:49 | P.PN ---
Subjective Patient is admitted for generalized weakness and lethargy secondary to lithium toxicity altered mental status secondary to lithium toxicity, acute renal failure acute renal failure is improving at this point of time who continue to hold off on diuretic therapy for now patient is looking much better today than yesterday more awake less confused and the mental status almost at his baseline. Patient had hyperkalemia as well because of hyperkalemia acute renal failure continue to hold on Entresto and Aldactone for a day more or more. We' ll repeat the chest x-ray tomorrow. Appreciate neurology and cardiology recommendations awaiting recommendations from nephrology and psychiatry. Constitutional: Denied any fatigue denied any fever. Cardio vascular: denied any chest pain, palpitations Gastrointestinal denied any nausea vomiting Pulmonary: Denied any shortness of breath cough Neurologic denied any new focal deficits Objective - Vital Signs Vital signs: Vital Signs Temp 97.5 F L 01/17/18 15:00 Pulse 69 01/17/18 15:00 Resp 16 01/17/18 15:00 BP 131/64 01/17/18 15:00 Pulse Ox 96 01/17/18 15:00 Intake & Output 01/16/18 01/17/18 01/17/18 18:59 06:59 18:59 Intake Total 80 Balance 80 Intake: Intake, IV Titration 80 Amount Sodium Chloride 0.9% 1, 80 000 ml @ 20 mls/hr IV . Q24H [facility] [place] Rx#:[id number] Other: Voiding Method Diaper # Voids 1 1 - Exam PHYSICAL EXAMINATION: GENERAL: The patient is alert and oriented x3, not in any acute distress. Well developed, well nourished. Much less lethargic and the status almost at his baseline HEENT: Pupils are round and equally reacting to light. EOMI. No scleral icterus. No conjunctival pallor. Normocephalic, atraumatic. No pharyngeal erythema. No thyromegaly. CARDIOVASCULAR: S1 and S2 present. No murmurs, rubs, or gallops. PULMONARY: Chest is clear to auscultation, no wheezing or crackles. ABDOMEN: Soft, nontender, nondistended, normoactive bowel sounds. No palpable organomegaly. MUSCULOSKELETAL: No joint swelling or deformity. EXTREMITIES: No cyanosis, clubbing, or pedal edema. NEUROLOGICAL: Gross neurological examination did not reveal any focal deficits. SKIN: No rashes. - Labs CBC & Chem 7: 01/17/18 09:28 01/17/18 09:28 Labs: Abnormal Lab Results - Last 24 Hours (Table) 01/16/18 01/16/18 01/16/18 Range/Units 02:35 17:15 20:18 RBC (4.30-5.90) m/uL Hgb (13.0-17.5) gm/dL Hct (39.0-53.0) % Chloride (98-107) mmol/L BUN (9-20) mg/dL Creatinine (0.66-1.25) mg/dL Glucose (74-99) mg/dL POC Glucose (mg/dL) 162 H 151 H (75-99) mg/dL Hemoglobin A1c 7.7 H (4.0-6.0) % 01/17/18 01/17/18 01/17/18 Range/Units 07:27 09:28 09:28 RBC 3.75 L (4.30-5.90) m/uL Hgb 11.7 L (13.0-17.5) gm/dL Hct 36.4 L (39.0-53.0) % Chloride 113 H (98-107) mmol/L BUN 42 H (9-20) mg/dL Creatinine 1.76 H (0.66-1.25) mg/dL Glucose 135 H (74-99) mg/dL POC Glucose (mg/dL) 113 H (75-99) mg/dL Hemoglobin A1c (4.0-6.0) % 01/17/18 Range/Units 11:42 RBC (4.30-5.90) m/uL Hgb (13.0-17.5) gm/dL Hct (39.0-53.0) % Chloride (98-107) mmol/L BUN (9-20) mg/dL Creatinine (0.66-1.25) mg/dL Glucose (74-99) mg/dL POC Glucose (mg/dL) 186 H (75-99) mg/dL Hemoglobin A1c (4.0-6.0) % Microbiology - Last 24 Hours (Table) 01/16/18 03:15 Urine Culture - Final Urine,Catheterized 01/16/18 02:35 Blood Culture - Preliminary Blood No Growth after 24 hours Assessment and Plan Plan: -Possible lithium toxicity: [place] will be held monitor him., Acute metabolic encephalopathy secondary to lithium toxicity which improved -Acute renal failure: Secondary to excessive diuretic therapy along with lithium. Nephrology will be consulted. Patient is not being started on IV fluids because of his congestive heart failure history and possibility of mild CHF on the chest x-ray. Continue to hold angiotensin receptor liliana and Aldactone -Congestive heart failure, patient appears to be fairly euvolemic patient is looking better now with improving creatinine continue to hold off on above- mentioned medications repeat chest x-ray tomorrow patient ejection fraction is around 35-40% -Altered mental status secondary to metabolic and toxic encephalopathy multifactorial and secondary to above-mentioned reasons -CVA/TIA in the past -Type 2 diabetes mellitus -Hyperlipidemia -Hypertension
[2018-01-17 17:14] LABS: Glucose,Whole Blood 326 mg/dL (75-99)
[2018-01-17] MEDS: CARVEDILOL 6.25 MG TAB PO SCH (18:31)
--- NOTE | 2018-01-17 19:23 | XR ---
EXAMINATION: XR chest 1V DATE AND TIME: 01/17/2018 5:39 PM CLINICAL INDICATION: CHF TECHNIQUE: AP upright portable COMPARISON: 01/16/2018 at 2:59 AM FINDINGS: Overall lung inflation pattern appears mildly improved when compared the prior study, consistent with resolved pulmonary edema. Currently, the lungs are clear and the pleural spaces are negative. The mild moderately cardiac silhouette is stable. Cardiac pacemaker and EKG leads noted. The skeletal structures and soft tissues are negative for acute findings. IMPRESSION: NO ACUTE PROCESS.
[2018-01-17 20:38] LABS: Glucose,Whole Blood 303 mg/dL (75-99)
[2018-01-17] MEDS: ATORVASTATIN 40 MG TAB PO SCH (20:42)
[2018-01-17] MEDS: ASPIRIN 81 MG PO SCH (20:42)
[2018-01-17] MEDS: INSULIN DETEMIR 100 UNIT/ML 10 ML VIAL SQ SCH (20:46)
[2018-01-17] MEDS ORDERED: SACUBITRIL/VALSARTAN 24 MG-26 MG TABLET PO SCH (21:00)
[2018-01-18] MEDS: ARMODAFINIL 250 MG PO SCH ×2 (01:59→11:44)
[2018-01-18] MEDS: SODIUM CHLORIDE 0.9% 1,000 ML IV SCH (02:00)
[2018-01-18 07:49] LABS: Glucose,Whole Blood 123 mg/dL (75-99)
[2018-01-18] MEDS: INSULIN ASPART 100 UNIT/ML 1 ML 10 ML VIAL SQ SCH ×4 (08:18→21:47)
[2018-01-18] MEDS: CILOSTAZOL 100 MG TAB PO SCH ×2 (08:28→21:47)
[2018-01-18] MEDS: CALCIUM CARBONATE 500 MG CHEWABLE PO SCH (08:28)
[2018-01-18] MEDS: CARVEDILOL 6.25 MG TAB PO SCH ×2 (08:28→17:56)
[2018-01-18] MEDS: CARBIDOPA-LEVODOPA 25-100 MG 1 EACH TAB PO SCH ×2 (08:28→21:47)
[2018-01-18] MEDS: FAMOTIDINE 20 MG TAB PO SCH (08:29)
[2018-01-18 10:12] LABS: HCT 38.3 % (39.0-53.0); Hypochromasia Slight; MCH 30.1 pg (25.0-35.0); MCHC 31.3 g/dL (31.0-37.0); MCV 96.4 fL (80.0-100.0); Mean Platelet Volume 7.7; Platelet Count 303 k/uL (150-450); RBC 3.97 m/uL (4.30-5.90); RDW 13.2 % (11.5-15.5); WBC 9.6 k/uL (3.8-10.6)
[2018-01-18 10:19] LABS: Calcium 9.9 mg/dL (8.4-10.2); Potassium 4.8 mmol/L (3.5-5.1)
--- NOTE | 2018-01-18 10:31 | ECHOF ---
Referral Reason:weakness MEASUREMENTS -------- HEIGHT: 162.6 cm WEIGHT: 95.3 kg BP: IVSd: 1.4 cm (0.6 - 1.1) LVIDd: 5.1 cm (3.9 - 5.3) LVPWd: 1.3 cm (0.6 - 1.1) IVSs: 1.5 cm LVIDs: 4.7 cm LVPWs: 1.3 cm LA Diam: 3.7 cm (2.7 - 3.8) LAESV Index (A-L): 50.38 ml/m Ao Diam: 3.6 cm (2.0 - 3.7) AV Cusp: 1.9 cm (1.5 - 2.6) LA Diam: 3.5 cm (2.7 - 3.8) MV EXCURSION: 21.171 mm (> 18.000) MV EF SLOPE: 38 mm/s (70 - 150) EPSS: 0.9 cm MV E Mono: 0.65 m/s MV DecT: 341 ms MV A Mono: 0.98 m/s MV E/A Ratio: 0.66 RAP: 5.00 mmHg RVSP: 13.42 mmHg FINDINGS -------- Paced rhythm. This was a techncally difficult study with suboptimal views, , Definity utilized for enhancement of i mages. The left ventricular size is normal. There is moderate concentric left ventricular hypertrophy. O verall left ventricular systolic function is mild-moderately impaired with, an EF between 40 - 45 %. LV FUNCTION ASSESSMENT DURING BIVENTRICULAR PACING Posterior hypokinesis The right ventricle is normal in size. The left atrial size is normal. The right atrial size is normal. Lumason used There is mild aortic valve sclerosis. There is no evidence of aortic regurgitation. Mild mitral annular calcification present. Mild mitral regurgitation is present. Mild tricuspid regurgitation present. There is no evidence of pulmonary hypertension. The right v entricular systolic pressure, as measured by Doppler, is 13.42mmHg. There is no pulmonic regurgitation present. The aortic root size is normal. There is no pericardial effusion. CONCLUSIONS -------- 1. This was a techncally difficult study with suboptimal views, , Definity utilized for enhancement o f images. 2. The left ventricular size is normal. 3. There is moderate concentric left ventricular hypertrophy. 4. Overall left ventricular systolic function is mild-moderately impaired with, an EF between 40 - 45 %. 5. Posterior hypokinesis 6. The right ventricle is normal in size. 7. The left atrial size is normal. 8. The right atrial size is normal. 9. Lumason used 10. There is mild aortic valve sclerosis. 11. Mild mitral annular calcification present. 12. Mild mitral regurgitation is present. 13. Mild tricuspid regurgitation present. 14. There is no evidence of pulmonary hypertension. 15. The right ventricular systolic pressure, as measured by Doppler, is 13.42mmHg. 16. There is no pulmonic regurgitation present. 17. The aortic root size is normal. 18. There is no pericardial effusion. DATABASE MARKETING MANAGER: Serenity Bravo RDCS
[2018-01-18 11:42] LABS: Glucose,Whole Blood 195 mg/dL (75-99)
--- NOTE | 2018-01-18 13:38 | P.NPCON ---
History of Present Illness - Reason for Consult acute renal failure - History of Present Illness Reason for consultation: Acute kidney injury History of present illness: Patient is a 72-year-old male seen in renal consultation for acute kidney injury and chronic kidney disease. Patient has chronic kidney disease stage III with baseline creatinine in the range of 1.1-1.3 secondary to diabetic kidney disease. Patient presented to the hospital with generalized weakness and poor oral intake. He was taking metformin as well as Aldactone which are currently held. Renal function has been improving with creatinine down to 1.45 today. Patient is also maintained on lithium as an outpatient for the last 8 years or so after he suffered a stroke. Triumph level was noted to be 2.0. He admits to good urine output. No evidence of volume overload. Patient does of systolic CHF with ejection fraction of 40-45%. No vomiting or diarrhea at this time. Tolerating oral intake. Admits to good urine output. Denies use of NSAIDs. No fever or chills. Vital signs are stable. General: The patient appeared well nourished and normally developed. HEENT: Head exam is unremarkable. Neck is without jugular venous distension. LUNGS: Lungs are clear to auscultation and percussion. Breath sounds decreased. HEART: Rate and Rhythm are regular. First and second heart sounds normal. No murmurs, rubs or gallops. ABDOMEN: Abdominal exam reveals normal bowel sounds. Non-tender and non- distended. No evidence of peritonitis. EXTREMITITES: No clubbing, cyanosis, or edema. Past Medical History Past Medical History: Heart Failure, CVA/TIA, Diabetes Mellitus, Hyperlipidemia , Hypertension Additional Past Medical History / Comment(s): Missing ring finger on right hand , Parkinson's History of Any Multi-Drug Resistant Organisms: None Reported Past Surgical History: Pacemaker Additional Past Surgical History / Comment(s): carotid artery surgery Past Anesthesia/Blood Transfusion Reactions: No Reported Reaction Type of Cardiac Device: Permanent Pacemaker Device Placement Date:: 2009 Past Psychological History: No Psychological Hx Reported Smoking Status: Current every day smoker Past Alcohol Use History: None Reported Past Drug Use History: None Reported - Past Family History Mother Family Medical History: Cancer Brother(s) Family Medical History: Cancer Medications and Allergies Home Medications Medication Instructions Recorded Confirmed Type Aspirin 81 mg PO HS 01/11/15 01/16/18 History Atorvastatin [Lipitor] 40 mg PO HS 01/11/15 01/16/18 History Ferrous Sulfate [Iron (65 MG 325 mg PO AC-LUNCH 01/11/15 01/16/18 History Elemental)] Triumph Carbonate [Triumph 300 mg PO DAILY 01/11/15 01/16/18 History Carbonate ER] Furosemide [Lasix] 40 mg PO DAILY #30 tablet 01/14/15 01/16/18 Rx Cilostazol [Pletal] 50 mg PO BID 09/08/17 01/16/18 History Spironolactone [Aldactone] 12.5 mg PO AC-LUNCH 09/08/17 01/16/18 History Armodafinil [Nuvigil] 250 mg PO QAM 12/16/17 01/16/18 History Calcium Carbonate [Calcium] 600 mg PO DAILY 12/16/17 01/16/18 History Carvedilol [Coreg] 12.5 mg PO BID 12/16/17 01/16/18 History Sacubitril/Valsartan [Entresto 24 1 tab PO BID 12/16/17 01/16/18 History mg-26 mg Tablet] Carbidopa-Levodopa 25-100 mg 1 each PO BID tab 12/20/17 01/16/18 Rx [Sinemet 25-100 mg] Insulin Detemir [Levemir] 42 unit SQ DAILY syr 12/20/17 01/16/18 Rx Cranberry Fruit Concentrate 450 mg PO BID 01/16/18 01/16/18 History [Cranberry] Famotidine [Pepcid] 20 mg PO BID 01/16/18 01/16/18 History Insulin Aspart [NovoLOG See Protocol SQ DIRECTED 01/16/18 01/16/18 History (formulary)] Insulin Detemir [Levemir] 42 unit SQ HS 01/16/18 01/16/18 History Nicotine 21Mg/24Hr Patch [Habitrol] 21 mg TOPICAL DAILY 01/16/18 01/16/18 History metFORMIN HCL [Glucophage] 500 mg PO BID 01/16/18 01/16/18 History Allergies Allergy/AdvReac Type Severity Reaction Status Date / Time No Known Allergies Allergy Verified 01/16/18 11:09 Physical Exam Vitals: Vital Signs Temp Pulse Pulse Resp BP Pulse Ox 01/18/18 08:00 71 16 01/18/18 07:17 98.0 F 71 16 148/65 94 L 01/18/18 00:24 98.0 F 64 15 102/50 95 01/18/18 00:21 97.7 F 70 16 149/73 96 01/17/18 19:28 97.7 F 75 18 107/58 93 L 01/17/18 15:00 97.5 F L 69 16 131/64 96 Intake and Output 01/17/18 01/18/18 01/18/18 22:59 06:59 14:59 Intake Total 75 Balance 75 Intake: Oral 75 Other: Voiding Method Incontinent Incontinent Incontinent # Voids 1 1 Results - Lab Results Most recent lab results Calcium 9.9 mg/dL (8.4-10.2) 01/18/18 09:21 01/18/18 09:21 01/18/18 09:21 Assessment and Plan Plan: Assessment: 1. Nonoliguric acute kidney injury mostly prerenal secondary to hypovolemia from diuretics and poor oral intake. Renal function improving with creatinine down to 1.45 today. 2. Chronic kidney disease stage III secondary to diabetic kidney disease with baseline creatinine in the range of 1.1-1.3. Also concern for chronic interstitial nephritis from long-term lithium use. 3. Mild acute on chronic lithium toxicity. Triumph level 2.0 on January 16. Triumph currently held. 4. Insulin-dependent diabetes mellitus. 5. History of CVA. 6. Systolic CHF with ejection fraction of 40-45%. Currently compensated. Plan: Repeat lithium level. Encourage oral intake. Avoid nephrotoxins. Continue to hold diuretics. Consider alternative to lithium for long-term use. Repeat electrolytes in the morning. No urgency for renal replacement therapy at this time. Thank you for the consultation. I will continue to follow the patient with you during his hospital stay.
--- NOTE | 2018-01-18 14:05 | P.CN ---
Psychiatric Consult - . Consult date: 01/18/18 Consult:: 01/18/18 12:09 Boyd toxicity Assessment and Plan Assessment: History of Present Illness 72-year-old male with the past History of congestive heart failure came in with a tight refusal to eat to generalized weakness and unable to ambulate has been going on for last week patient memory has been going down significantly for few months, patient in the past was treated for UTIs when he had similar symptoms in the past because of which the brought him here. Although there is no evidence of UTI and pneumonia nor any other infection patient is definitely lethargic. Has been vomiting with the worsening renal function. Patient baseline creatinine in the past was 1.2 now 2.2. Patient does have congestive heart failure history ejection fraction of around 35-40%. Patient chest x-ray did show some pulmonary edema but the because of the worsening renal function until nephrology and cardiology evaluated several hold off on diuretic therapy along with Entresto area because of the worsening functional renal function is lithium levels went up and patient was believed to have lithium toxicity because of which patient was admitted from ER last night. Patient potassium is elevated as well developed because of renal dysfunction Review of Systems Patient denied any pain anywhere denied any cough dysuria. Much of the review of systems unable to obtain because of his clinical condition Past Medical History Past Medical History: Heart Failure, CVA/TIA, Diabetes Mellitus, Hyperlipidemia , Hypertension Additional Past Medical History / Comment(s): Missing ring finger on right hand , Parkinson's History of Any Multi-Drug Resistant Organisms: None Reported Past Surgical History: Pacemaker Additional Past Surgical History / Comment(s): carotid artery surgery Past Anesthesia/Blood Transfusion Reactions: No Reported Reaction Type of Cardiac Device: Permanent Pacemaker Device Placement Date:: 2009 Past Psychological History: No Psychological Hx Reported Smoking Status: Current every day smoker Past Alcohol Use History: None Reported Past Drug Use History: None Reported - Past Family History Mother Family Medical History: Cancer Brother(s) Family Medical History: Cancer Medications and Allergies Home Medications Medication Instructions Recorded Confirmed Type Aspirin 81 mg PO HS 01/11/15 01/16/18 History Atorvastatin [Lipitor] 40 mg PO HS 01/11/15 01/16/18 History Ferrous Sulfate [Iron (65 MG 325 mg PO AC-LUNCH 01/11/15 01/16/18 History Elemental)] Boyd Carbonate [Boyd 300 mg PO DAILY 01/11/15 01/16/18 History Carbonate ER] Furosemide [Lasix] 40 mg PO DAILY #30 tablet 01/14/15 01/16/18 Rx Cilostazol [Pletal] 50 mg PO BID 09/08/17 01/16/18 History Spironolactone [Aldactone] 12.5 mg PO AC-LUNCH 09/08/17 01/16/18 History Armodafinil [Nuvigil] 250 mg PO QAM 12/16/17 01/16/18 History Calcium Carbonate [Calcium] 600 mg PO DAILY 12/16/17 01/16/18 History Carvedilol [Coreg] 12.5 mg PO BID 12/16/17 01/16/18 History Sacubitril/Valsartan [Entresto 24 1 tab PO BID 12/16/17 01/16/18 History mg-26 mg Tablet] Carbidopa-Levodopa 25-100 mg 1 each PO BID tab 12/20/17 01/16/18 Rx [Sinemet 25-100 mg] Insulin Detemir [Levemir] 42 unit SQ DAILY syr 12/20/17 01/16/18 Rx Cranberry Fruit Concentrate 450 mg PO BID 01/16/18 01/16/18 History [Cranberry] Famotidine [Pepcid] 20 mg PO BID 01/16/18 01/16/18 History Insulin Aspart [NovoLOG See Protocol SQ DIRECTED 01/16/18 01/16/18 History (formulary)] Insulin Detemir [Levemir] 42 unit SQ HS 01/16/18 01/16/18 History Nicotine 21Mg/24Hr Patch [Habitrol] 21 mg TOPICAL DAILY 01/16/18 01/16/18 History metFORMIN HCL [Glucophage] 500 mg PO BID 01/16/18 01/16/18 History Musculoskeletal Examination - Abnormal/Involuntary Movements: [none, ] Strength: [weakness:] Muscle Tone: [no impairment Gait: [ in wheelchair, wide-based] Station: [unsteady] Mental Status Examination - General Appearance: [ casual, bizarre, appears older than stated age] Speech/Language: [spontaneous, slow, rapid, slurred, rambled, mumbling, hesitant , halting, monotone, expressive, mute, loud, soft, other] Attitude/Behavior: [cooperative, guarded, irritable, withdrawn, indifferent, other] Mood: [euthymic confussed Affect: [flat, incongruent, blunted constricted] Orientation: [not time, person, place situation] Thought Content: [wnl, Risk Factors: [not suicidal (ideations, plan), and/or Homicidal (ideations, plan ), other] Perception: [wnl Thought Processes: tangential Concentration/Attention Span: [ impaired] [Per observation and interview with the patient] Recent Memory: [ impaired] [0out of 3 in 3 minutes] Remote Memory: [impaired] [past events, as related history] Intelligence: [below average] [based on history, based on vocabulary, syntax, grammar, and content] Judgement: [poor] [per patient's behavior/history of present illness] Insight: [ poor] [understanding severity of illness/history of present illness] (1) Bipolar affective disorder, current episode depressed Current Visit: Yes Status: Acute Code(s): F31.30 - BIPOLAR DISORD, CRNT EPSD DEPRESS, MILD OR MOD SEVERT, UNSP SNOMED Code(s): 971006878 (2) Altered mental status Current Visit: Yes Status: Acute Code(s): R41.82 - ALTERED MENTAL STATUS, UNSPECIFIED SNOMED Code(s): 957298308 (3) Boyd toxicity Narrative/Plan: Clinical impression:lithium toxicity and delirium Recommendations:Plan: stat LIthium and TSH with T4 Encourage oral intake. Consider alternative to lithium for long-term use? right now he has delirium so I will wait until he clears which will be about 90 hours due to electrolyte imbalance Repeat electrolytes in the morning Thank you for the consult George Ashford D.O., PhD. attending psychiatrist Odette Soares Current Visit: Yes Status: Acute Code(s): T56.891A - TOXIC EFFECT OF OTH METALS, ACCIDENTAL (UNINTENTIONAL), INIT SNOMED Code(s): 289395434
[2018-01-18 14:13] LABS: Lithium 1.4 mmol/L
[2018-01-18] MEDS ORDERED: CILOSTAZOL 100 MG TAB ONE (14:44)
--- NOTE | 2018-01-18 15:23 | P.PN ---
Subjective Patient is admitted for generalized weakness and lethargy secondary to lithium toxicity altered mental status secondary to lithium toxicity, acute renal failure acute renal failure is improving at this point of time who continue to hold off on diuretic therapy for now patient is looking much better today than yesterday more awake less confused and the mental status almost at his baseline. Patient had hyperkalemia as well because of hyperkalemia acute renal failure continue to hold on Entresto and Aldactone for a day more or more. We' ll repeat the chest x-ray tomorrow. Appreciate neurology and cardiology recommendations awaiting recommendations from nephrology and psychiatry. 01/18/2018 Patient is doing much better today improved creatinine. Continue to hold off on heart failure medication patient chest x-ray is clear does not have any pulmonary edema. Nephrology evaluated the patient discussed at length with nephrology. Appreciate psychiatric recommendation TSH within normal limits. PT and OT will evaluate the patient possibly of discharge tomorrow repeat echo cardiac exam showed ejection fraction of 40-45% appears to have improved from her little his last echo Constitutional: Denied any fatigue denied any fever. Cardio vascular: denied any chest pain, palpitations Gastrointestinal denied any nausea vomiting Pulmonary: Denied any shortness of breath cough Neurologic denied any new focal deficits Objective - Vital Signs Vital signs: Vital Signs Temp 98.0 F 01/18/18 07:17 Pulse 71 01/18/18 08:00 Resp 16 01/18/18 08:00 BP 148/65 01/18/18 07:17 Pulse Ox 94 L 01/18/18 07:17 Intake & Output 01/17/18 01/18/18 01/18/18 18:59 06:59 18:59 Intake Total 375 Balance 375 Intake: Oral 375 Other: Voiding Method Incontinent Incontinent # Voids 1 - Exam PHYSICAL EXAMINATION: GENERAL: The patient is alert and oriented x3, not in any acute distress. Well developed, well nourished. Much less lethargic and the status almost at his baseline HEENT: Pupils are round and equally reacting to light. EOMI. No scleral icterus. No conjunctival pallor. Normocephalic, atraumatic. No pharyngeal erythema. No thyromegaly. CARDIOVASCULAR: S1 and S2 present. No murmurs, rubs, or gallops. PULMONARY: Chest is clear to auscultation, no wheezing or crackles. ABDOMEN: Soft, nontender, nondistended, normoactive bowel sounds. No palpable organomegaly. MUSCULOSKELETAL: No joint swelling or deformity. EXTREMITIES: No cyanosis, clubbing, or pedal edema. NEUROLOGICAL: Gross neurological examination did not reveal any focal deficits. SKIN: No rashes. - Labs CBC & Chem 7: 01/18/18 09:21 01/18/18 09:21 Labs: Abnormal Lab Results - Last 24 Hours (Table) 01/17/18 01/17/18 01/18/18 Range/Units 17:13 20:36 07:47 RBC (4.30-5.90) m/uL Hgb (13.0-17.5) gm/dL Hct (39.0-53.0) % Chloride (98-107) mmol/L BUN (9-20) mg/dL Creatinine (0.66-1.25) mg/dL Glucose (74-99) mg/dL POC Glucose (mg/dL) 326 H 303 H 123 H (75-99) mg/dL 01/18/18 01/18/18 01/18/18 Range/Units 09:21 09:21 11:40 RBC 3.97 L (4.30-5.90) m/uL Hgb 12.0 L (13.0-17.5) gm/dL Hct 38.3 L (39.0-53.0) % Chloride 114 H (98-107) mmol/L BUN 33 H (9-20) mg/dL Creatinine 1.45 H (0.66-1.25) mg/dL Glucose 107 H (74-99) mg/dL POC Glucose (mg/dL) 195 H (75-99) mg/dL Microbiology - Last 24 Hours (Table) 01/16/18 02:35 Blood Culture - Preliminary Blood No Growth after 48 hours Assessment and Plan Plan: -Possible lithium toxicity: [place] will be held monitor him., Acute metabolic encephalopathy secondary to lithium toxicity which improved -Acute renal failure: Secondary to excessive diuretic therapy along with lithium. Nephrology will be consulted. Patient is not on IV fluids because of his congestive heart failure history Continue to hold angiotensin receptor liliana and Aldactone -Congestive heart failure, patient appears to be fairly euvolemic patient is looking better now with improving creatinine continue to hold off on above- mentioned medications chest x-ray did not show any pulmonary edema tomorrow patient ejection fraction is around 40-45% -Altered mental status secondary to metabolic and toxic encephalopathy multifactorial and secondary to above-mentioned reasons -CVA/TIA in the past -Type 2 diabetes mellitus -Hyperlipidemia -Hypertension
--- NOTE | 2018-01-18 15:29 | P.PN ---
Subjective Mr. Chan seen and examined sitting up in chair with at the bedside. Past medical history significant for dilated cardiomyopathy s/p ICD, nonischemic cardiomyopathy, hypertension, dyslipidemia, diabetes mellitus, CVA 11 years ago and ongoing nicotine dependence. He follows with Dr. Randle in [place] for cardiology. Adjustments were made to his medication yesterday. Carvedilol was decreased to 6.25 twice a day. He has been seen in consultation by nephrology and all diuretics have been placed on hold. Entresto was also discontinued her primary. Echocardiogram obtained reveals mild to moderate impaired left ventricular systolic function with ejection fraction 40-45%, posterior hypokinesis, mild aortic valve sclerosis and mild MR and mild TR. He states he feels mildly better and less weak and tired today. He was walking in the halls. The pressure 148/65 heart rate 71 afebrile maintaining oxygen saturation on room air. Laboratory data reviewed, hemoglobin 12.0, platelets 303, sodium 144, potassium 4.8, creatinine 1.45, TSH 0.979. Objective - Vital Signs Vital signs: Vital Signs Temp 98.0 F 01/18/18 07:17 Pulse 71 01/18/18 08:00 Resp 16 01/18/18 08:00 BP 148/65 01/18/18 07:17 Pulse Ox 94 L 01/18/18 07:17 Intake & Output 01/17/18 01/18/18 01/18/18 18:59 06:59 18:59 Intake Total 375 Balance 375 Intake: Oral 375 Other: Voiding Method Incontinent Incontinent # Voids 1 - Exam GENERAL: Well-appearing, well-nourished and in no acute distress. NECK: Supple without JVD or thyromegaly. LUNGS: Breath sounds clear to auscultation bilaterally. Respiration equal and unlabored. No wheezes, rales or rhonchi. HEART: Regular rate and rhythm without murmurs, rubs or gallops. S1 and S2 heard. EXTREMITIES: Normal range of motion, trace bilateral lower extremity nonpitting edema. No clubbing or cyanosis. Peripheral pulses intact. - Labs CBC & Chem 7: 01/18/18 09:21 01/18/18 09:21 Labs: Abnormal Lab Results - Last 24 Hours (Table) 01/17/18 01/17/18 01/18/18 Range/Units 17:13 20:36 07:47 RBC (4.30-5.90) m/uL Hgb (13.0-17.5) gm/dL Hct (39.0-53.0) % Chloride (98-107) mmol/L BUN (9-20) mg/dL Creatinine (0.66-1.25) mg/dL Glucose (74-99) mg/dL POC Glucose (mg/dL) 326 H 303 H 123 H (75-99) mg/dL 01/18/18 01/18/18 01/18/18 Range/Units 09:21 09:21 11:40 RBC 3.97 L (4.30-5.90) m/uL Hgb 12.0 L (13.0-17.5) gm/dL Hct 38.3 L (39.0-53.0) % Chloride 114 H (98-107) mmol/L BUN 33 H (9-20) mg/dL Creatinine 1.45 H (0.66-1.25) mg/dL Glucose 107 H (74-99) mg/dL POC Glucose (mg/dL) 195 H (75-99) mg/dL Microbiology - Last 24 Hours (Table) 01/16/18 02:35 Blood Culture - Preliminary Blood No Growth after 48 hours Assessment and Plan Assessment: ASSESSMENT Generalized weakness with exertion, may be related to hypotension. Nonischemic dilated cardiomyopathy History of systolic heart failure, currently euvolemic. EF 40-45% s/p ICD placement Hypertension Dyslipidemia CVA Diabetes mellitus Chronic kidney disease, GFR 37, Stage 3B PLAN Continue with Corex 6.25 mg twice a day. Recommend resuming Entresto as he has chronic stable kidney disease. If not SHAWN or ARB should be used. 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 Nurse Practitioner note has been reviewed, I agree with a documented findings and plan of care. Patient was seen and examined.
--- NOTE | 2018-01-18 16:22 | P.CONS ---
History of Present Illness - Chief Complaint Medical debility - History of Present Illness I had the opportunity to see patient for inpatient rehab consultation with regard to medical debility. He was admitted to [facility] January 12 with lethargy. Cause appears to be lithium toxicity. reports multiple hospitalizations of medical issues gently revolving around chronic kidney disease over the last several months. Seen by for mental status change. Cardiology for nonischemic cardiomyopathy. Dr. Langston for nonoliguric renal failure. Chest x-ray no active disease. Head CT with old right occipital infarct and cerebral atrophy. PT reports minimal assistance for transfers and gait 20 feet with standard walker. OT reports supervision for upper dressing and moderate assistance for lower dressing and bathing. Maximal assistance for toileting and minimal assistance for transfers. Previous functional history as elicited patient corroborative by : 72-year- old right-handed white male who is lives and 2 floor home with . Retired. does cooking, laundry, driving. Previously independent with standing shower and gait with 4 wheeled walker. Smokes 2 packs a day and denies alcohol. Dr. Mendes is regular doctor. Family history father was a smoker. Review of Systems Review of systems: ENT: Denies sneezes or discharge. Eyes: Denies discharge or photophobia. Cardiac: Denies chest pain or palpitation. Pulmonary: Denies cough or shortness of breath. Gastrointestinal: Denies nausea, emesis, constipation, diarrhea. Genitourinary: Denies discharge or frequency. Musculoskeletal: Denies muscle or bone aches. Neurologic: Generalized weakness and mental status change. Endocrine: Denies shakes or sweats. Oncology: Denies cancers. Dermatologic: Denies rash, itching, pruritus. ALLERGY/immunology: Denies sneezes, rashes. Past Medical History Past Medical History: Heart Failure, CVA/TIA, Diabetes Mellitus, Hyperlipidemia , Hypertension Additional Past Medical History / Comment(s): Missing ring finger on right hand , Parkinson's History of Any Multi-Drug Resistant Organisms: None Reported Past Surgical History: Pacemaker Additional Past Surgical History / Comment(s): carotid artery surgery Past Anesthesia/Blood Transfusion Reactions: No Reported Reaction Type of Cardiac Device: Permanent Pacemaker Device Placement Date:: 2009 Past Psychological History: No Psychological Hx Reported Smoking Status: Current every day smoker Past Alcohol Use History: None Reported Past Drug Use History: None Reported - Past Family History Mother Family Medical History: Cancer Brother(s) Family Medical History: Cancer Medications and Allergies Home Medications Medication Instructions Recorded Confirmed Type Aspirin 81 mg PO HS 01/11/15 01/16/18 History Atorvastatin [Lipitor] 40 mg PO HS 01/11/15 01/16/18 History Ferrous Sulfate [Iron (65 MG 325 mg PO AC-LUNCH 01/11/15 01/16/18 History Elemental)] Halesite Carbonate [Hales[place] 300 mg PO DAILY 01/11/15 01/16/18 History Carbonate ER] Furosemide [Lasix] 40 mg PO DAILY #30 tablet 01/14/15 01/16/18 Rx Cilostazol [Pletal] 50 mg PO BID 09/08/17 01/16/18 History Spironolactone [Aldactone] 12.5 mg PO AC-LUNCH 09/08/17 01/16/18 History Armodafinil [Nuvigil] 250 mg PO QAM 12/16/17 01/16/18 History Calcium Carbonate [Calcium] 600 mg PO DAILY 12/16/17 01/16/18 History Carvedilol [Coreg] 12.5 mg PO BID 12/16/17 01/16/18 History Sacubitril/Valsartan [Entresto 24 1 tab PO BID 12/16/17 01/16/18 History mg-26 mg Tablet] Carbidopa-Levodopa 25-100 mg 1 each PO BID tab 12/20/17 01/16/18 Rx [Sinemet 25-100 mg] Insulin Detemir [Levemir] 42 unit SQ DAILY syr 12/20/17 01/16/18 Rx Cranberry Fruit Concentrate 450 mg PO BID 01/16/18 01/16/18 History [Cranberry] Famotidine [Pepcid] 20 mg PO BID 01/16/18 01/16/18 History Insulin Aspart [NovoLOG See Protocol SQ DIRECTED 01/16/18 01/16/18 History (formulary)] Insulin Detemir [Levemir] 42 unit SQ HS 01/16/18 01/16/18 History Nicotine 21Mg/24Hr Patch [Habitrol] 21 mg TOPICAL DAILY 01/16/18 01/16/18 History metFORMIN HCL [Glucophage] 500 mg PO BID 01/16/18 01/16/18 History Allergies Allergy/AdvReac Type Severity Reaction Status Date / Time No Known Allergies Allergy Verified 01/16/18 11:09 Physical Exam Vitals: Vital Signs Temp Pulse Pulse Resp BP Pulse Ox 01/18/18 08:00 71 16 01/18/18 07:17 98.0 F 71 16 148/65 94 L 01/18/18 00:24 98.0 F 64 15 102/50 95 01/18/18 00:21 97.7 F 70 16 149/73 96 01/17/18 19:28 97.7 F 75 18 107/58 93 L Intake and Output 01/18/18 01/18/18 01/18/18 06:59 14:59 22:59 Intake Total 375 Balance 375 Intake: Oral 375 Other: Voiding Method Incontinent Incontinent # Voids 1 Skin: Atrophic, intact. General: Medium build and comfortable appearance. Head: Normocephalic, atraumatic. Eyes: Symmetric. Pupils equal round. Ears: Symmetric. Hearing within normal limits. Mouth: Clear. Neck: Supple. Carotid without bruit. Cardiac: Regular rate and rhythm. Lungs: Clear anteriorly and posteriorly. Abdomen: Soft active nontender. Extremities: Normal tone. Neurological: Mental status: Alert, cooperative, pleasant. Cranial nerves: Symmetric facial tone and trapezius. Motor: Can actively elevate all 4 limbs including active movement distally. Sensation: Intact throughout. DTRs: Symmetric and equal throughout. Mobility: Patient and report 2 nurse assist for transfer from bed to Feli chair. Results CBC & Chem 7: 01/18/18 09:21 01/18/18 09:21 Labs: Abnormal Lab Results - Last 24 Hours (Table) 01/17/18 01/17/18 01/18/18 Range/Units 17:13 20:36 07:47 RBC (4.30-5.90) m/uL Hgb (13.0-17.5) gm/dL Hct (39.0-53.0) % Chloride (98-107) mmol/L BUN (9-20) mg/dL Creatinine (0.66-1.25) mg/dL Glucose (74-99) mg/dL POC Glucose (mg/dL) 326 H 303 H 123 H (75-99) mg/dL 01/18/18 01/18/18 01/18/18 Range/Units 09:21 09:21 11:40 RBC 3.97 L (4.30-5.90) m/uL Hgb 12.0 L (13.0-17.5) gm/dL Hct 38.3 L (39.0-53.0) % Chloride 114 H (98-107) mmol/L BUN 33 H (9-20) mg/dL Creatinine 1.45 H (0.66-1.25) mg/dL Glucose 107 H (74-99) mg/dL POC Glucose (mg/dL) 195 H (75-99) mg/dL Microbiology - Last 24 Hours (Table) 01/16/18 02:35 Blood Culture - Preliminary Blood No Growth after 48 hours Assessment and Plan (1) Halesite toxicity Current Visit: Yes Status: Acute Code(s): T56.891A - TOXIC EFFECT OF OTH METALS, ACCIDENTAL (UNINTENTIONAL), INIT SNOMED Code(s): 932163328 (2) ANTHONY (acute kidney injury) Current Visit: No Status: Acute Code(s): N17.9 - ACUTE KIDNEY FAILURE, UNSPECIFIED SNOMED Code(s): 55067225 Plan: Impression: 1. Medical debility. 2. Halesite toxicity. 3. Acute on chronic renal failure. 4. Diabetes. 5. Hypertension. 6. Dyslipidemia. 7. CHF. 8. History of stroke. Comments and plan: At this time PT and OT are ongoing. Safety concerns noted. Patient has demonstrated ability tolerate and benefit from therapies. Also note a functional decline over the last few to several months that has not been well addressed with return to home and home therapies. At this time have discussed possible benefit of inpatient rehab and patient and seem agreeable.
[2018-01-18 17:28] LABS: Glucose,Whole Blood 343 mg/dL (75-99)
[2018-01-18] MEDS: NICOTINE 21MG/24HR PATCH TRANSDERM SCH (18:36)
[2018-01-18 20:02] LABS: Glucose,Whole Blood 379 mg/dL (75-99)
[2018-01-18] MEDS: ASPIRIN 81 MG PO SCH (21:46)
[2018-01-18] MEDS: ATORVASTATIN 40 MG TAB PO SCH (21:46)
[2018-01-18] MEDS: INSULIN DETEMIR 100 UNIT/ML 10 ML VIAL SQ SCH (21:47)
[2018-01-19] MEDS: SODIUM CHLORIDE 0.9% 1,000 ML IV SCH ×2 (03:43→22:55)
--- NOTE | 2018-01-19 07:09 | P.PN ---
Progress Note - Text Add Dx of Metabolioc Encephalopathy to my consult.
[2018-01-19 07:24] LABS: Glucose,Whole Blood 128 mg/dL (75-99)
[2018-01-19] MEDS: INSULIN ASPART 100 UNIT/ML 1 ML 10 ML VIAL SQ SCH ×4 (07:43→21:31)
[2018-01-19] MEDS: ARMODAFINIL 250 MG PO SCH (09:12)
[2018-01-19] MEDS: CILOSTAZOL 100 MG TAB PO SCH ×2 (09:17→21:36)
[2018-01-19] MEDS: CARVEDILOL 6.25 MG TAB PO SCH ×2 (09:18→17:54)
[2018-01-19] MEDS: CARBIDOPA-LEVODOPA 25-100 MG 1 EACH TAB PO SCH ×2 (09:18→21:36)
[2018-01-19] MEDS: CALCIUM CARBONATE 500 MG CHEWABLE PO SCH (09:18)
[2018-01-19] MEDS: FAMOTIDINE 20 MG TAB PO SCH (09:18)
--- NOTE | 2018-01-19 11:08 | P.PN ---
Subjective Patient is seen in follow-up for acute kidney injury. Creatinine was 2.22 admission and was down to 1.45 yesterday. Labs from today are pending at this time. [place] level was 2.0 on admission and was down to 1.4 yesterday. Patient currently working with physical therapy. Admits to good urine output. Denies chest pain or shortness of breath. Patient has chronic kidney disease stage III with baseline creatinine in the range of 1.1-1.3 secondary to diabetic kidney disease with also likely component of chronic interstitial nephritis from lithium use. Vital signs are stable. General: The patient appeared well nourished and normally developed. HEENT: Head exam is unremarkable. Neck is without jugular venous distension. LUNGS: Lungs are clear to auscultation and percussion. Breath sounds decreased. HEART: Rate and Rhythm are regular. First and second heart sounds normal. No murmurs, rubs or gallops. ABDOMEN: Abdominal exam reveals normal bowel sounds. Non-tender and non- distended. No evidence of peritonitis. EXTREMITITES: No clubbing, cyanosis, or edema. Objective - Vital Signs Vital signs: Vital Signs Temp 97.5 F L 01/19/18 07:00 Pulse 71 01/19/18 08:00 Resp 16 01/19/18 08:00 BP 122/68 01/19/18 07:00 Pulse Ox 95 01/19/18 07:00 Intake & Output 01/18/18 01/19/18 01/19/18 18:59 06:59 18:59 Intake Total 875 450 375 Balance 875 450 375 Intake: Oral 875 450 375 Other: Voiding Method Incontinent Diaper Diaper Incontinent Incontinent # Voids 2 - Labs CBC & Chem 7: 01/18/18 09:21 01/18/18 09:21 Labs: Abnormal Lab Results - Last 24 Hours (Table) 01/18/18 01/18/18 01/18/18 Range/Units 11:40 17:26 20:00 POC Glucose (mg/dL) 195 H 343 H 379 H (75-99) mg/dL 01/19/18 Range/Units 07:13 POC Glucose (mg/dL) 128 H (75-99) mg/dL Microbiology - Last 24 Hours (Table) 01/16/18 02:35 Blood Culture - Preliminary Blood No Growth after 72 hours Assessment and Plan Plan: Assessment: 1. Nonoliguric acute kidney injury mostly prerenal secondary to hypovolemia from diuretics and poor oral intake. Renal function improving with creatinine down to 1.45 as of yesterday. Creatinine was 2.22 on admission. 2. Chronic kidney disease stage III secondary to diabetic kidney disease with baseline creatinine in the range of 1.1-1.3. Also concern for chronic interstitial nephritis from long-term lithium use. 3. Mild acute on chronic lithium toxicity. [place] level 2.0 on January 16. [place] currently held. Repeat level I.4. 4. Insulin-dependent diabetes mellitus. 5. History of CVA. 6. Systolic CHF with ejection fraction of 40-45%. Currently compensated. Plan: Encourage oral intake. Avoid nephrotoxins. Continue to hold diuretics. Consider alternative to lithium for long-term use. Repeat electrolytes in the morning.
[2018-01-19 11:43] LABS: Glucose,Whole Blood 381 mg/dL (75-99)
[2018-01-19 12:02] LABS: Calcium 9.7 mg/dL (8.4-10.2); Lithium 1.2 mmol/L; Potassium 5.3 mmol/L (3.5-5.1)
[2018-01-19] MEDS ORDERED: CILOSTAZOL 100 MG TAB ONE (14:44)
--- NOTE | 2018-01-19 15:51 | P.PN ---
Subjective Patient is admitted for generalized weakness and lethargy secondary to lithium toxicity altered mental status secondary to lithium toxicity, acute renal failure acute renal failure is improving at this point of time who continue to hold off on diuretic therapy for now patient is looking much better today than yesterday more awake less confused and the mental status almost at his baseline. Patient had hyperkalemia as well because of hyperkalemia acute renal failure continue to hold on Entresto and Aldactone for a day more or more. We' ll repeat the chest x-ray tomorrow. Appreciate neurology and cardiology recommendations awaiting recommendations from nephrology and psychiatry. 01/18/2018 Patient is doing much better today improved creatinine. Continue to hold off on heart failure medication patient chest x-ray is clear does not have any pulmonary edema. Nephrology evaluated the patient discussed at length with nephrology. Appreciate psychiatric recommendation TSH within normal limits. PT and OT will evaluate the patient possibly of discharge tomorrow repeat echo cardiac exam showed ejection fraction of 40-45% appears to have improved from her little his last echo 01/19/2018 Patient is much more awake and alert. Patient is still bit hyperkalemic. SHAWN inhibitor or angiotensin receptor liliana cannot be started at this time because of hyperkalemia and acute renal failure, these medications are contraindicated in either of these scenarios. His heart failure medications need to be optimized once everything is stabilized including his other provided abnormalities. Patient will stay off diuretic therapy. We'll discuss with nephrology tomorrow upon discharge to inpatient rehab regarding dosing of diuretic therapy which need to be initiated before SHAWN inhibitor or angiotensin receptor liliana or entresto, his kidney function is close to his baseline. We' ll discuss with psychiatry regarding alternates to lithium therapy. Constitutional: Denied any fatigue denied any fever. Cardio vascular: denied any chest pain, palpitations Gastrointestinal denied any nausea vomiting Pulmonary: Denied any shortness of breath cough Neurologic denied any new focal deficits Objective - Vital Signs Vital signs: Vital Signs Temp 98 F 01/19/18 15:00 Pulse 68 01/19/18 15:00 Resp 16 01/19/18 15:00 BP 152/73 01/19/18 15:00 Pulse Ox 97 01/19/18 15:00 Intake & Output 01/18/18 01/19/18 01/19/18 18:59 06:59 18:59 Intake Total 875 450 875 Balance 875 450 875 Intake: Oral 875 450 875 Other: Voiding Method Incontinent Diaper Diaper Incontinent Incontinent # Voids 2 - Exam PHYSICAL EXAMINATION: GENERAL: The patient is alert and oriented x3, not in any acute distress. Well developed, well nourished. Much less lethargic and the status almost at his baseline HEENT: Pupils are round and equally reacting to light. EOMI. No scleral icterus. No conjunctival pallor. Normocephalic, atraumatic. No pharyngeal erythema. No thyromegaly. CARDIOVASCULAR: S1 and S2 present. No murmurs, rubs, or gallops. PULMONARY: Chest is clear to auscultation, no wheezing or crackles. ABDOMEN: Soft, nontender, nondistended, normoactive bowel sounds. No palpable organomegaly. MUSCULOSKELETAL: No joint swelling or deformity. EXTREMITIES: No cyanosis, clubbing, or pedal edema. NEUROLOGICAL: Gross neurological examination did not reveal any focal deficits. SKIN: No rashes. - Labs CBC & Chem 7: 01/18/18 09:21 01/19/18 10:42 Labs: Abnormal Lab Results - Last 24 Hours (Table) 01/18/18 01/18/18 01/19/18 Range/Units 17:26 20:00 07:13 Potassium (3.5-5.1) mmol/L Chloride (98-107) mmol/L BUN (9-20) mg/dL Creatinine (0.66-1.25) mg/dL Glucose (74-99) mg/dL POC Glucose (mg/dL) 343 H 379 H 128 H (75-99) mg/dL 01/19/18 01/19/18 Range/Units 10:42 11:31 Potassium 5.3 H (3.5-5.1) mmol/L Chloride 110 H (98-107) mmol/L BUN 30 H (9-20) mg/dL Creatinine 1.31 H (0.66-1.25) mg/dL Glucose 329 H (74-99) mg/dL POC Glucose (mg/dL) 381 H (75-99) mg/dL Microbiology - Last 24 Hours (Table) 01/16/18 02:35 Blood Culture - Preliminary Blood No Growth after 72 hours Assessment and Plan Plan: -Possible lithium toxicity: Mildred will be held monitor him., Acute metabolic encephalopathy secondary to lithium toxicity which improved -Acute renal failure: Secondary to excessive diuretic therapy along with lithium. Nephrology evaluated the patient. Patient is not on IV fluids because of his congestive heart failure history Continue to hold angiotensin receptor liliana and Aldactone -Congestive heart failure, patient appears to be fairly euvolemic patient is looking better now with improving creatinine continue to hold off on above- mentioned medications chest x-ray did not show any pulmonary edema tomorrow patient ejection fraction is around 40-45% -Altered mental status secondary to metabolic and toxic encephalopathy multifactorial and secondary to above-mentioned reasons -CVA/TIA in the past -Type 2 diabetes mellitus -Hyperlipidemia -Hypertension
[2018-01-19 17:14] LABS: Glucose,Whole Blood 463 mg/dL (75-99)
[2018-01-19] MEDS: NICOTINE 21MG/24HR PATCH TRANSDERM SCH ×2 (17:54→20:00)
[2018-01-19 20:19] LABS: Glucose,Whole Blood 434 mg/dL (75-99)
[2018-01-19] MEDS ORDERED: INSULIN ASPART 100 UNIT/ML 1 ML 10 ML VIAL SQ ONE (21:16)
[2018-01-19] MEDS: ATORVASTATIN 40 MG TAB PO SCH (21:36)
[2018-01-19] MEDS: ASPIRIN 81 MG PO SCH (21:36)
[2018-01-19] MEDS: INSULIN DETEMIR 100 UNIT/ML 10 ML VIAL SQ SCH (21:36)
[2018-01-20 07:03] LABS: Glucose,Whole Blood 130 mg/dL (75-99)
[2018-01-20] MEDS: INSULIN ASPART 100 UNIT/ML 1 ML 10 ML VIAL SQ SCH ×7 (07:29→22:23)
[2018-01-20] MEDS: CARBIDOPA-LEVODOPA 25-100 MG 1 EACH TAB PO SCH ×2 (07:36→22:22)
[2018-01-20] MEDS: CILOSTAZOL 100 MG TAB PO SCH ×2 (07:36→22:22)
[2018-01-20] MEDS: CALCIUM CARBONATE 500 MG CHEWABLE PO SCH (07:36)
[2018-01-20] MEDS: FAMOTIDINE 20 MG TAB PO SCH (07:36)
[2018-01-20] MEDS: CARVEDILOL 6.25 MG TAB PO SCH ×2 (07:36→17:53)
[2018-01-20] MEDS: ARMODAFINIL 250 MG PO SCH (07:37)
[2018-01-20 08:13] LABS: Calcium 9.3 mg/dL (8.4-10.2); Magnesium 2.1 mg/dL (1.6-2.3)
--- NOTE | 2018-01-20 10:35 | P.PN ---
Subjective Patient is seen in follow-up for acute kidney injury. Creatinine was 2.22 admission and is improved to 1.37 today. [place] level was 2.0 on admission and was down to 1.2 yesterday. Admits to good urine output. Denies chest pain or shortness of breath. Patient has chronic kidney disease stage III with baseline creatinine in the range of 1.1-1.3 secondary to diabetic kidney disease with also likely component of chronic interstitial nephritis from lithium use. No active complaints at this time. Vital signs are stable. General: The patient appeared well nourished and normally developed. HEENT: Head exam is unremarkable. Neck is without jugular venous distension. LUNGS: Lungs are clear to auscultation and percussion. Breath sounds decreased. HEART: Rate and Rhythm are regular. First and second heart sounds normal. No murmurs, rubs or gallops. ABDOMEN: Abdominal exam reveals normal bowel sounds. Non-tender and non- distended. No evidence of peritonitis. EXTREMITITES: No clubbing, cyanosis, or edema. Objective - Vital Signs Vital signs: Vital Signs Temp 97.9 F 01/20/18 08:02 Pulse 62 01/20/18 08:02 Resp 21 01/20/18 08:02 BP 102/54 01/20/18 08:02 Pulse Ox 95 01/20/18 01:05 Intake & Output 01/19/18 01/20/18 01/20/18 18:59 06:59 18:59 Intake Total 875 590 0 Balance 875 590 0 Intake: Oral 875 590 0 Other: Voiding Method Diaper Toilet Toilet Incontinent Diaper Diaper Incontinent Incontinent # Voids 1 # Bowel Movements 1 - Labs CBC & Chem 7: 01/18/18 09:21 01/20/18 07:24 Labs: Abnormal Lab Results - Last 24 Hours (Table) 01/19/18 01/19/18 01/19/18 Range/Units 10:42 11:31 17:02 Potassium 5.3 H (3.5-5.1) mmol/L Chloride 110 H (98-107) mmol/L Carbon Dioxide (22-30) mmol/L BUN 30 H (9-20) mg/dL Creatinine 1.31 H (0.66-1.25) mg/dL Glucose 329 H (74-99) mg/dL POC Glucose (mg/dL) 381 H 463 H (75-99) mg/dL 01/19/18 01/20/18 01/20/18 Range/Units 20:18 07:01 07:24 Potassium (3.5-5.1) mmol/L Chloride 114 H (98-107) mmol/L Carbon Dioxide 21 L (22-30) mmol/L BUN 35 H (9-20) mg/dL Creatinine 1.37 H (0.66-1.25) mg/dL Glucose 128 H (74-99) mg/dL POC Glucose (mg/dL) 434 H 130 H (75-99) mg/dL Microbiology - Last 24 Hours (Table) 01/16/18 02:35 Blood Culture - Preliminary Blood No Growth after 96 hours Assessment and Plan Plan: Assessment: 1. Nonoliguric acute kidney injury mostly prerenal secondary to hypovolemia from diuretics and poor oral intake. Renal function improving with creatinine down to 1.37 today. Creatinine was 2.22 on admission. 2. Chronic kidney disease stage III secondary to diabetic kidney disease with baseline creatinine in the range of 1.1-1.3. Also concern for chronic interstitial nephritis from long-term lithium use. 3. Mild acute on chronic lithium toxicity. [place] level 2.0 on January 16. [place] currently held. Repeat level 1.2. 4. Insulin-dependent diabetes mellitus. 5. History of CVA. 6. Systolic CHF with ejection fraction of 40-45%. Currently compensated. 7. Mild metabolic acidosis secondary to acute kidney injury. Plan: Encourage oral intake. Avoid nephrotoxins. Continue to hold diuretics. Consider alternative to lithium for long-term use. Monitor bicarb. Repeat electrolytes in the morning.
[2018-01-20 11:54] LABS: Glucose,Whole Blood 90 mg/dL (75-99)
[2018-01-20] MEDS: NICOTINE 21MG/24HR PATCH TRANSDERM SCH (13:09)
[2018-01-20] MEDS ORDERED: CILOSTAZOL 100 MG TAB ONE (14:44)
[2018-01-20 17:25] LABS: Glucose,Whole Blood 343 mg/dL (75-99)
--- NOTE | 2018-01-20 20:33 | PN ---
PROGRESS NOTE DATE OF SERVICE: 01/20/2018 This 72-year-old gentleman with a past medical history of multiple medical problems was admitted with significant weakness and change in mental status, and lethargy secondary to lithium toxicity. The patient also had acute renal failure. The patient also had gait dysfunction also. PT, OT evaluated the patient and recommending ECF rehab at this time. Possibility of inpatient rehab is also considered. The patient has slow shuffling steps. The patient is weak and found to get fatigued easily. Patient is also tremulous. The patient has history of Parkinson's. The patient will be closely monitored. PAST MEDICAL HISTORY: Reviewed. REVIEW OF SYSTEM: CARDIOVASCULAR: No angina. RESPIRATORY: As mentioned. GI: No nausea. : No dysuria. NERVOUS SYSTEM: No numbness or weakness. CURRENT MEDICATIONS: Reviewed and include: 1. Aspirin 81 mg. 2. Lipitor 40 mg q.h.s. 3. Tums 500 mg daily. 4. 100, one p.o. b.i.d. 5. Coreg 6.25 mg b.i.d. 6. Pletal 550 mg b.i.d. 7. Pepcid 20 mg daily. 8. NovoLog. 9. Levemir 42 units subcu q.h.s. 10.Narcan. 11.Habitrol. 12.Nuvigil. PHYSICAL EXAM: Patient is alert, oriented x3. Pulse is 84, blood pressure 119/67, respirations 16, temperature 98.2, pulse ox 98% on room air. HEENT: Conjunctivae normal. Oral mucosa moist. Neck is no jugular venous distention. No carotid bruit. No lymph node enlargement. CARDIOVASCULAR: S1, S2. RESPIRATORY: Breath sounds diminished in the bases. A few scattered rhonchi. ABDOMEN: Soft, nontender. LEGS: No edema. NERVOUS SYSTEM: Diffusely weak, proximal weakness also present. LABS: Creatinine is 1.37, hemoglobin is 12, and glucose is 343 and lithium is 1.2 at this time. ASSESSMENT: 1. Acute lithium toxicity with confusion and weakness. 2. Acute on chronic renal failure. 3. Possible prerenal acute tubular necrosis, possibly lithium induced. 4. Congestive heart failure history. 5. Change in mental status acute metabolic encephalopathy, multifactorial. 6. Cerebrovascular accident, transient ischemic attack. 7. Gait dysfunction. 8. Diabetes mellitus type 2. 9. Hypertension. 10.Hyperlipidemia. 11.History of Parkinson's. 12.FULL CODE. RECOMMENDATIONS AND DISCUSSION: This 72-year-old gentleman presented with multiple complex medical issues as mentioned earlier. Otherwise at this time I recommend to continue the current management and symptomatic treatment. Otherwise at this time I would recommend continue with PT , OT evaluation. The patient is shown to benefit from continued PT, OT and therapy and I would recommend inpatient rehab for continued observation and because of safety concerns. Please note the patient had multiple falls at home and the patient had multiple complex medical issues including lithium toxicity as well. Once again , the prognosis guarded. Further recommendations to follow. We will wait for the peer to peer discussion as well. KARLA / REMYN: [id number] / MOY
[2018-01-20 20:42] LABS: Glucose,Whole Blood 372 mg/dL (75-99)
[2018-01-20] MEDS: INSULIN DETEMIR 100 UNIT/ML 10 ML VIAL SQ SCH (22:22)
[2018-01-20] MEDS: ASPIRIN 81 MG PO SCH (22:22)
[2018-01-20] MEDS: ATORVASTATIN 40 MG TAB PO SCH (22:22)
[2018-01-21] MEDS: SODIUM CHLORIDE 0.9% 1,000 ML IV SCH (03:53)
[2018-01-21 06:56] LABS: Glucose,Whole Blood 207 mg/dL (75-99)
[2018-01-21 08:41] LABS: Calcium 9.3 mg/dL (8.4-10.2); Potassium 4.6 mmol/L (3.5-5.1)
[2018-01-21] MEDS: INSULIN ASPART 100 UNIT/ML 1 ML 10 ML VIAL SQ SCH ×7 (10:33→23:17)
[2018-01-21] MEDS: CALCIUM CARBONATE 500 MG CHEWABLE PO SCH (10:35)
[2018-01-21] MEDS: FAMOTIDINE 20 MG TAB PO SCH ×2 (10:36→23:17)
[2018-01-21] MEDS: CARVEDILOL 6.25 MG TAB PO SCH ×2 (10:36→18:44)
[2018-01-21] MEDS: CARBIDOPA-LEVODOPA 25-100 MG 1 EACH TAB PO SCH ×2 (10:36→23:17)
[2018-01-21] MEDS: CILOSTAZOL 100 MG TAB PO SCH ×2 (10:40→23:16)
[2018-01-21] MEDS: ARMODAFINIL 250 MG PO SCH (10:40)
[2018-01-21 11:30] LABS: Glucose,Whole Blood 254 mg/dL (75-99)
--- NOTE | 2018-01-21 13:11 | P.PN ---
Subjective Patient is seen in follow-up for acute kidney injury. Creatinine was 2.22 admission and is improved to 1.24 today. [place] level was 2.0 on admission and was down to 1.2 as of 01/19. Admits to good urine output. Denies chest pain or shortness of breath. Patient has chronic kidney disease stage III with baseline creatinine in the range of 1.1-1.3 secondary to diabetic kidney disease with also likely component of chronic interstitial nephritis from lithium use. No active complaints at this time. Vital signs are stable. General: The patient appeared well nourished and normally developed. HEENT: Head exam is unremarkable. Neck is without jugular venous distension. LUNGS: Lungs are clear to auscultation and percussion. Breath sounds decreased. HEART: Rate and Rhythm are regular. First and second heart sounds normal. No murmurs, rubs or gallops. ABDOMEN: Abdominal exam reveals normal bowel sounds. Non-tender and non- distended. No evidence of peritonitis. EXTREMITITES: No clubbing, cyanosis, or edema. Objective - Vital Signs Vital signs: Vital Signs Temp 98.1 F 01/21/18 07:40 Pulse 62 01/21/18 08:03 Resp 20 01/21/18 08:03 BP 146/64 01/21/18 07:40 Pulse Ox 98 01/21/18 09:50 Intake & Output 01/20/18 01/21/18 01/21/18 18:59 06:59 18:59 Intake Total 480 540 240 Balance 480 540 240 Intake: Oral 480 540 240 Other: Voiding Method Urinal Urinal Incontinent # Voids 1 2 # Bowel Movements 1 - Labs CBC & Chem 7: 01/18/18 09:21 01/21/18 07:24 Labs: Abnormal Lab Results - Last 24 Hours (Table) 01/20/18 01/20/18 01/21/18 Range/Units 17:01 20:31 06:42 Chloride (98-107) mmol/L Carbon Dioxide (22-30) mmol/L BUN (9-20) mg/dL Glucose (74-99) mg/dL POC Glucose (mg/dL) 343 H 372 H 207 H (75-99) mg/dL 01/21/18 01/21/18 Range/Units 07:24 11:18 Chloride 114 H (98-107) mmol/L Carbon Dioxide 20 L (22-30) mmol/L BUN 29 H (9-20) mg/dL Glucose 190 H (74-99) mg/dL POC Glucose (mg/dL) 254 H (75-99) mg/dL Microbiology - Last 24 Hours (Table) 01/16/18 02:35 Blood Culture - Preliminary Blood No Growth after 120 hours Assessment and Plan Plan: Assessment: 1. Nonoliguric acute kidney injury mostly prerenal secondary to hypovolemia from diuretics and poor oral intake. Renal function improving with creatinine down to 1.24 today. Creatinine was 2.22 on admission. 2. Chronic kidney disease stage III secondary to diabetic kidney disease with baseline creatinine in the range of 1.1-1.3. Also concern for chronic interstitial nephritis from long-term lithium use. 3. Mild acute on chronic lithium toxicity. [place] level 2.0 on January 16. [place] currently held. Repeat level 1.2. 4. Insulin-dependent diabetes mellitus. 5. History of CVA. 6. Systolic CHF with ejection fraction of 40-45%. Currently compensated. 7. Mild metabolic acidosis secondary to acute kidney injury. Plan: Encourage oral intake. Avoid nephrotoxins. Continue to hold diuretics. Consider alternative to lithium for long-term use. Add oral bicarb. Stable to be discharged home from nephrology standpoint. Follow up outpatient in the next 1-2 weeks.
[2018-01-21] MEDS: SODIUM BICARBONATE TAB 650 MG TAB PO SCH ×2 (13:49→23:19)
[2018-01-21] MEDS ORDERED: CILOSTAZOL 100 MG TAB ONE (14:45)
--- NOTE | 2018-01-21 16:35 | P.DS ---
Providers Date of admission: 01/16/18 03:53 Expected date of discharge: 01/21/18 Attending physician: Julianne Novak Consults: 01/16/18 13:39 Consult Physician Routine Consulting Provider: William Dunbar Consult Reason/Comments: ANTHONY Do you want consulting provider notified?: Yes 01/16/18 13:40 Consult Physician Routine Consulting Provider: Phillip Martinez Consult Reason/Comments: CHF Do you want consulting provider notified?: Yes 01/16/18 13:42 Consult Physician Routine Consulting Provider: Tae Bangura Consult Reason/Comments: Weakness in the legs Do you want consulting provider notified?: Yes 01/16/18 14:01 Consult Physician Routine Consulting Provider: George Ashford Consult Reason/Comments: change in mental status, [place] toxicity Do you want consulting provider notified?: Yes 01/17/18 10:57 Consult Physician Urgent Consulting Provider: [facility] Consult Reason/Comments: pacemaker malfunction Do you want consulting provider notified?: Yes 01/17/18 15:13 Consult Physician Routine Consulting Provider: Robby Hernandez Consult Reason/Comments: eval for inpatient rehab Do you want consulting provider notified?: Yes Primary care physician: Aria Zaroc Hospital Course: Final Diagnoses: -Acute lithium toxicity with confusion and weakness -Acute on chronic renal failure, -Possibly prerenal acute tubular necrosis, possibly lithium-induced -Chronic CHF history -Altered mental status secondary to metabolic and toxic encephalopathy multifactorial and secondary to above-mentioned reasons -CVA/TIA in the past -Type 2 diabetes mellitus -Hyperlipidemia -Hypertension Hospital course: This is a 72-year-old gentleman admitted with multiple medical problems including mental status changes, significant weakness, lethargy secondary to lithium toxicity, acute renal failure. PT OT evaluated in recommending subacute rehab. Patient has been accepted to the current medical inpatient rehab. Significant clinical improvement. Dr. Novak completed a peer to peer review with patient's insurance company. Received authorization for subacute rehab but not for inpatient rehab. Cleared by all consults for discharge. Patient and spouse declined subacute rehab and patient will be discharged home in a stable condition with guarded prognosis, with home care. EXAMINATION: GENERAL: The patient is alert and oriented x3, not in any acute distress. Well developed, well nourished. Much less lethargic and the status almost at his baseline HEENT: Pupils are round and equally reacting to light. EOMI. No scleral icterus. No conjunctival pallor. Normocephalic, atraumatic. No pharyngeal erythema. No thyromegaly. CARDIOVASCULAR: S1 and S2 present. No murmurs, rubs, or gallops. PULMONARY: Chest is clear to auscultation, no wheezing or crackles. ABDOMEN: Soft, nontender, nondistended, normoactive bowel sounds. No palpable organomegaly. MUSCULOSKELETAL: No joint swelling or deformity. EXTREMITIES: No cyanosis, clubbing, or pedal edema. NEUROLOGICAL: Gross neurological examination did not reveal any focal deficits. SKIN: No rashes. The impression and plan of care has been dictated as directed. : I performed a history and examination of this patient, discussed the same with the dictator. I agree with the dictator's note ,documented as a scribe. Any additional findings or plans will be noted. -type: 35 minutes Patient Condition at Discharge: Stable Plan - Discharge Summary Discharge Rx Participant: Yes New Discharge Prescriptions: New Carvedilol [Coreg] 6.25 mg PO BID-W/MEALS #60 tab Sodium Bicarbonate Tab 650 mg PO BID #60 tab Continue Ferrous Sulfate [Iron (65 MG Elemental)] 325 mg PO AC-LUNCH Aspirin 81 mg PO HS Atorvastatin [Lipitor] 40 mg PO HS Cilostazol [Pletal] 50 mg PO BID Armodafinil [Nuvigil] 250 mg PO QAM Calcium Carbonate [Calcium] 600 mg PO DAILY Carbidopa-Levodopa 25-100 mg [Sinemet 25-100 mg] 1 each PO BID tab Insulin Detemir [Levemir] 42 unit SQ DAILY syr Cranberry Fruit Concentrate [Cranberry] 450 mg PO BID Famotidine [Pepcid] 20 mg PO BID Insulin Aspart [NovoLOG (formulary)] See Protocol SQ DIRECTED Insulin Detemir [Levemir] 42 unit SQ HS Nicotine 21Mg/24Hr Patch [Habitrol] 21 mg TOPICAL DAILY Discontinued [place] Carbonate [[place] Carbonate ER] 300 mg PO DAILY Furosemide [Lasix] 40 mg PO DAILY #30 tablet Spironolactone [Aldactone] 12.5 mg PO AC-LUNCH Carvedilol [Coreg] 12.5 mg PO BID Sacubitril/Valsartan [Entresto 24 mg-26 mg Tablet] 1 tab PO BID metFORMIN HCL [Glucophage] 500 mg PO BID Discharge Medication List Aspirin 81 mg PO HS 01/11/15 [History] Atorvastatin [Lipitor] 40 mg PO HS 01/11/15 [History] Ferrous Sulfate [Iron (65 MG Elemental)] 325 mg PO AC-LUNCH 01/11/15 [History] Cilostazol [Pletal] 50 mg PO BID 09/08/17 [History] Armodafinil [Nuvigil] 250 mg PO QAM 12/16/17 [History] Calcium Carbonate [Calcium] 600 mg PO DAILY 12/16/17 [History] Carbidopa-Levodopa 25-100 mg [Sinemet 25-100 mg] 1 each PO BID tab 12/20/17 [Rx ] Insulin Detemir [Levemir] 42 unit SQ DAILY syr 12/20/17 [Rx] Cranberry Fruit Concentrate [Cranberry] 450 mg PO BID 01/16/18 [History] Famotidine [Pepcid] 20 mg PO BID 01/16/18 [History] Insulin Aspart [NovoLOG (formulary)] See Protocol SQ DIRECTED 01/16/18 [ History] Insulin Detemir [Levemir] 42 unit SQ HS 01/16/18 [History] Nicotine 21Mg/24Hr Patch [Habitrol] 21 mg TOPICAL DAILY 01/16/18 [History] Carvedilol [Coreg] 6.25 mg PO BID-W/MEALS #60 tab 01/21/18 [Rx] Sodium Bicarbonate Tab 650 mg PO BID #60 tab 01/21/18 [Rx] Follow up Appointment(s)/Referral(s): Aria Zarco DO [Primary Care Provider] - 3 Days Raphael Langston DO [STAFF PHYSICIAN] - 1 Week Ambulatory/Diagnostic Orders: Basic Metabolic Panel [LAB.AMB] Time Frame: 3 Days, Location: None Selected Activity/Diet/Wound Care/Special Instructions: Alternative to lithium as per psychiatry . Entresto, aldactone, lasix remin on hold, reevaluate at follow-up visit with PCP/cardiology .Confirm cardiology follow-up appointment prior to discharge. [facility] - [phone] Diet: Renal Activity: Limited until follow up
[2018-01-21 18:23] LABS: Glucose,Whole Blood 151 mg/dL (75-99)
[2018-01-21] MEDS: NICOTINE 21MG/24HR PATCH TRANSDERM SCH (18:44)
[2018-01-21 20:42] LABS: Glucose,Whole Blood 265 mg/dL (75-99)
[2018-01-21] MEDS: ATORVASTATIN 40 MG TAB PO SCH (23:16)
[2018-01-21] MEDS: INSULIN DETEMIR 100 UNIT/ML 10 ML VIAL SQ SCH (23:16)
[2018-01-21] MEDS: ASPIRIN 81 MG PO SCH (23:17)
[2018-01-22] MEDS: SODIUM CHLORIDE 0.9% 1,000 ML IV SCH (04:58)
[2018-01-22 08:00] LABS: Glucose,Whole Blood 65 mg/dL (75-99)
[2018-01-22 08:25] LABS: Glucose,Whole Blood 67 mg/dL (75-99)
[2018-01-22 09:36] LABS: Glucose,Whole Blood 248 mg/dL (75-99)
--- NOTE | 2018-01-22 10:01 | P.PN ---
Subjective Patient is seen in follow-up for acute kidney injury. Creatinine was 2.22 admission and improved to 1.24 as of yesterday. [place] level was 2.0 on admission and was down to 1.2 as of 01/19. Admits to good urine output. Denies chest pain or shortness of breath. Patient has chronic kidney disease stage III with baseline creatinine in the range of 1.1-1.3 secondary to diabetic kidney disease with also likely component of chronic interstitial nephritis from lithium use. No active complaints at this time. Vital signs are stable. General: The patient appeared well nourished and normally developed. HEENT: Head exam is unremarkable. Neck is without jugular venous distension. LUNGS: Lungs are clear to auscultation and percussion. Breath sounds decreased. HEART: Rate and Rhythm are regular. First and second heart sounds normal. No murmurs, rubs or gallops. ABDOMEN: Abdominal exam reveals normal bowel sounds. Non-tender and non- distended. No evidence of peritonitis. EXTREMITITES: No clubbing, cyanosis, or edema. Objective - Vital Signs Vital signs: Vital Signs Temp 97.9 F 01/22/18 01:45 Pulse 74 01/22/18 01:45 Resp 15 01/22/18 01:45 BP 120/86 01/22/18 01:45 Pulse Ox 98 01/22/18 01:45 Intake & Output 01/21/18 01/22/18 01/22/18 18:59 06:59 18:59 Intake Total 476 500 444 Balance 476 500 444 Weight 95.7 kg Intake: Oral 476 500 444 Other: Voiding Method Toilet Toilet Urinal Urinal # Voids 2 1 1 # Bowel Movements 0 - Labs CBC & Chem 7: 01/18/18 09:21 01/21/18 07:24 Labs: Abnormal Lab Results - Last 24 Hours (Table) 01/21/18 01/21/18 01/21/18 Range/Units 11:18 18:05 20:30 POC Glucose (mg/dL) 254 H 151 H 265 H (75-99) mg/dL 01/22/18 01/22/18 01/22/18 Range/Units 07:46 08:13 09:25 POC Glucose (mg/dL) 65 L 67 L 248 H (75-99) mg/dL Microbiology - Last 24 Hours (Table) 01/16/18 02:35 Blood Culture - Final Blood No Growth after 144 hours Assessment and Plan Plan: Assessment: 1. Nonoliguric acute kidney injury mostly prerenal secondary to hypovolemia from diuretics and poor oral intake. Renal function improving with creatinine down to 1.24 as of yesterday. Creatinine was 2.22 on admission. 2. Chronic kidney disease stage III secondary to diabetic kidney disease with baseline creatinine in the range of 1.1-1.3. Also concern for chronic interstitial nephritis from long-term lithium use. 3. Mild acute on chronic lithium toxicity. [place] level 2.0 on January 16. [place] currently held. Repeat level 1.2. 4. Insulin-dependent diabetes mellitus. 5. History of CVA. 6. Systolic CHF with ejection fraction of 40-45%. Currently compensated. 7. Mild metabolic acidosis secondary to acute kidney injury. Plan: Encourage oral intake. Avoid nephrotoxins. Continue to hold diuretics. Consider alternative to lithium for long-term use. Maintain oral bicarb. Stable to be discharged home from nephrology standpoint. Follow up outpatient in the next 1-2 weeks.
[2018-01-22] MEDS: CARVEDILOL 6.25 MG TAB PO SCH (10:12)
[2018-01-22] MEDS: CILOSTAZOL 100 MG TAB PO SCH (10:12)
[2018-01-22] MEDS: FAMOTIDINE 20 MG TAB PO SCH (10:12)
[2018-01-22] MEDS: CALCIUM CARBONATE 500 MG CHEWABLE PO SCH (10:12)
[2018-01-22] MEDS: SODIUM BICARBONATE TAB 650 MG TAB PO SCH (10:12)
[2018-01-22] MEDS: CARBIDOPA-LEVODOPA 25-100 MG 1 EACH TAB PO SCH (10:12)
[2018-01-22] MEDS: INSULIN ASPART 100 UNIT/ML 1 ML 10 ML VIAL SQ SCH ×4 (10:13→12:57)
[2018-01-22] MEDS: ARMODAFINIL 250 MG PO SCH (10:13)
[2018-01-22 10:19] VITALS: BP 162/77; PULSE 85; RESP 16; TEMP 97.6
[2018-01-22 12:20] LABS: Glucose,Whole Blood 258 mg/dL (75-99)
--- NOTE | 2018-01-22 13:17 | PN ---
PROGRESS NOTE DATE OF SERVICE: 01/30/2018. INTERVAL HISTORY: The patient is being seen in followup in coverage for Dr. Ashford. A psychiatric consultation was completed late last week as the patient presented with lithium toxicity. I believe his lithium level upon presentation was 2. The patient was felt to be delirious and had physical symptoms from the lithium toxicity. He has been seen by internal medicine and by Nephrology. The patient is awake, seated upright in a chair next to his bed. His is at bedside. The patient indicates his mood is good. They are looking forward to being discharged today. He states that he was originally placed on the lithium 11 years ago following a stroke and they were told it was used to treat hallucinations. The patient denies any psychiatric history prior to his stroke. He denies any history of hypomanic or manic episodes and his concurs. He is endorsing no hallucinations at this time. They both feel that his confusion has improved since the lithium level has been reducing. It was last measured on 01/19 and was found to be 1.2. MENTAL STATUS EXAM: The patient is alert. He is seated upright in a chair. Eye contact is appropriate. He is dressed in hospital attire. He is pleasant and cooperative. He indicates his mood is good. He denies having any suicidal or homicidal ideation, intent, or plan. He is endorsing no auditory or visual hallucinations or any specific delusions. There is no observed evidence of psychosis. He demonstrates no tangential thinking, loose associations or flight of ideas. He does not appear hypomanic or manic. He demonstrates no verbal or physical aggressiveness. He demonstrates no abnormal repetitive movements. He is oriented to person, place. He names day of the week as Wednesday rather than Wednesday. His provides collateral information throughout the session. The patient's affect remains euthymic. PLAN OF TREATMENT: At this point in time, the patient is advised to remain off of lithium. There is no clear history of manic or hypomanic episodes. We discussed that lithium is not used to treat hallucinations. He is endorsing no symptoms of psychosis. His is very comfortable with him returning home. She has no safety concerns. They do have an established primary care physician, whom has been writing the lithium. They will follow up with him soon after discharge. We discussed that they need to monitor for any relapsing psychiatric symptoms and to get a psychiatric referral if any are present. He is instructed to return to the hospital with any acute safety concerns. MMODL / IJN: [id number] /
[2018-01-22] MEDS ORDERED: CILOSTAZOL 100 MG TAB ONE (14:45)
--- NOTE | 2018-01-22 20:38 | PN ---
PROGRESS NOTE DATE OF SERVICE: 01/21/2018 This 72-year-old gentleman who was admitted with acute lithium toxicity and multiple medical problems being closely monitored at this time. Inpatient rehab is pending at this time. No chest pain. No palpitations. No fever. EXAM: Alert and oriented times three. Pulse 85. Blood pressure 160/76, respiratory rate 16, temperature 97.2. Pulse ox 100 percent on room air. HEENT: Conjunctivae normal. NECK: No jugular venous distention. CARDIOVASCULAR: S1, S2 muffled. RESPIRATORY: Breath sounds diminished in the bases. A few scattered rhonchi and crackles. ABDOMEN is soft, nontender. LEGS are no edema, no swelling. CENTRAL NERVOUS SYSTEM: No focal deficits. LABS: Glucose 248 and INR 130. ASSESSMENT: 1. Acute lithium toxicity with confusion and weakness. 2. Acute on chronic renal failure. 3. Possible prerenal acute tubular necrosis. 4. Congestive heart failure. 5. Change in mental status. 6. Coronary artery disease. 7. Cerebrovascular accident /transient ischemic attack. 8. Gait dysfunction. 9. Hypertension. 10.Hyperlipidemia. RECOMMENDATIONS AND DISCUSSION: Recommend to continue current medications. Symptomatic treatment. Otherwise PT, OT evaluation. Possible inpatient rehab. Guarded prognosis. Further recommendations to follow. MMODL / IJN: [id number] /
--- NOTE | 2018-01-22 20:44 | DS ---
DISCHARGE SUMMARY DATE OF SERVICE: 01/22/2018 HISTORY OF PRESENT ILLNESS: This 72-year-old gentleman was admitted with multiple medical problems, lithium toxicity, change in mental status, is being closely monitored. The inpatient rehab was suggested but apparently the insurance company did not approve and they approved for only the [facility] rehab and the family opted not to go through. On exam, vitals are stable. Cardiovascular: S1, S2. Respiratory; A few scattered rhonchi. Abdomen is soft. Nervous system: No focal deficits. Please refer to previous dictation for final diagnoses and discharge medications. Total time taken 35 minutes. MMODL / IJN: [id number] /
== END 2018-01-22 15:24 | disposition home health service (06) | DRG 682 ==
LOC: EC 02:12 → 3SUR 03:53 → 4SSUR 07:56
PROVIDERS: ADMIT Internal Medicine; ATTEND Internal Medicine
PROC: 4B02XTZ Measurement of Cardiac Defibrillator, External Approach (ICD-10-PCS; principal; 2018-01-16)
DX: N17.0 Acute kidney failure with tubular necrosis (principal); G92 Toxic encephalopathy; I42.0 Dilated cardiomyopathy; I13.0 Hypertensive heart and chronic kidney disease with heart failure and stage 1 through stage 4 chronic kidney disease, or unspecified chronic kidney disease; I50.22 Chronic systolic (congestive) heart failure; E87.2 Acidosis; N11.9 Chronic tubulo-interstitial nephritis, unspecified; E11.22 Type 2 diabetes mellitus with diabetic chronic kidney disease; E11.65 Type 2 diabetes mellitus with hyperglycemia; E87.5 Hyperkalemia; G20 Parkinson's disease; I08.3 Combined rheumatic disorders of mitral, aortic and tricuspid valves; E86.1 Hypovolemia; T43.595A Adverse effect of other antipsychotics and neuroleptics, initial encounter; I25.10 Atherosclerotic heart disease of native coronary artery without angina pectoris; N18.3 Chronic kidney disease, stage 3 (moderate); E78.5 Hyperlipidemia, unspecified; M20.001 Unspecified deformity of right finger(s); F31.9 Bipolar disorder, unspecified; F17.210 Nicotine dependence, cigarettes, uncomplicated; Z79.82 Long term (current) use of aspirin; Z79.4 Long term (current) use of insulin; Z79.899 Other long term (current) drug therapy; Z87.440 Personal history of urinary (tract) infections; Z86.73 Personal history of transient ischemic attack (TIA), and cerebral infarction without residual deficits; Z86.79 Personal history of other diseases of the circulatory system; Z95.810 Presence of automatic (implantable) cardiac defibrillator; Z80.9 Family history of malignant neoplasm, unspecified
CPT/HCPCS: 36415; 70450; 71045; 71046; 80048; 80053; 80178; 81003; 82550; 82553; 83036; 83605; 83735; 83880; 84443; 84484; 85025; 85027; 85610; 85730; 87040; 87086; 93005; 93306; 95816; 96360; 99285

== ENCOUNTER 2018-01-30 18:09 | Inpatient (IN) | payer MEDICARE ==
[2018-01-30] MEDS ORDERED: PROPARACAINE 0.5% OPHTH DROPS 15 ML BTL BOTH EYES STA (18:33)
--- NOTE | 2018-01-30 18:39 | ED ---
Weakness HPI - General Source: patient Mode of arrival: EMS Limitations: no limitations <Viktoria Marquez - Last Filed: 01/31/18 02:56> <Marielle Mcbride - Last Filed: 01/31/18 03:09> - General Chief complaint: Weakness Stated complaint: weakness Time Seen by Provider: 01/30/18 18:24 - History of Present Illness Initial comments: 73-year-old male patient presents to the emergency department today with for evaluation of increased weakness. states the patient was discharged about one week ago after being admitted for lithium toxicity. States that he has been home since discharge and doing well. States that they were up all night watching television and things seemed to be fine. States that he slept throughout the day today but woke around 4 to 5:00 complaining of weakness. States that he was also complaining that he couldn't see however he would not open his eyes. She states he seems to be slightly confused. States he has had urinary tract infections in the past and had some what similar symptoms. States that his blood sugars have been within normal range. He has been eating and drinking. She denies any cough or congestion. Patient does not provide much history, states that his eyes hurt when he attempts to open them. He denies any headache or dizziness. Denies numbness or tingling to his extremities. Denies any nausea, vomiting, or abdominal pain. Denies any hematuria, dysuria, urinary frequency, urinary urgency. (Viktoria Marquez) - Related Data Home Medications Medication Instructions Recorded Confirmed Aspirin 81 mg PO HS 01/11/15 01/16/18 Atorvastatin [Lipitor] 40 mg PO HS 01/11/15 01/16/18 Ferrous Sulfate [Iron (65 MG 325 mg PO AC-LUNCH 01/11/15 01/16/18 Elemental)] Cilostazol [Pletal] 50 mg PO BID 09/08/17 01/16/18 Armodafinil [Nuvigil] 250 mg PO QAM 12/16/17 01/16/18 Calcium Carbonate [Calcium] 600 mg PO DAILY 12/16/17 01/16/18 Cranberry Fruit Concentrate 450 mg PO BID 01/16/18 01/16/18 [Cranberry] Famotidine [Pepcid] 20 mg PO BID 01/16/18 01/16/18 Insulin Aspart [NovoLOG See Protocol SQ DIRECTED 01/16/18 01/16/18 (formulary)] Insulin Detemir [Levemir] 42 unit SQ HS 01/16/18 01/16/18 Nicotine 21Mg/24Hr Patch [Habitrol] 21 mg TOPICAL DAILY 01/16/18 01/16/18 Previous Rx's Medication Instructions Recorded Carbidopa-Levodopa 25-100 mg 1 each PO BID tab 12/20/17 [Sinemet 25-100 mg] Insulin Detemir [Levemir] 42 unit SQ DAILY syr 12/20/17 Carvedilol [Coreg] 6.25 mg PO BID-W/MEALS #60 tab 01/21/18 Sodium Bicarbonate Tab 650 mg PO BID #60 tab 01/21/18 Allergies Allergy/AdvReac Type Severity Reaction Status Date / Time No Known Allergies Allergy Verified 01/30/18 18:22 Review of Systems ROS Other: All systems not noted in ROS Statement are negative. <Viktoria Marquez - Last Filed: 01/31/18 02:56> ROS Other: All systems not noted in ROS Statement are negative. <Marielle Mcbride - Last Filed: 01/31/18 03:09> ROS Statement: Those systems with pertinent positive or pertinent negative responses have been documented in the HPI. Past Medical History Past Medical History: Heart Failure, CVA/TIA, Diabetes Mellitus, Hyperlipidemia , Hypertension Additional Past Medical History / Comment(s): Missing ring finger on right hand , Parkinson's History of Any Multi-Drug Resistant Organisms: None Reported Past Surgical History: Pacemaker Additional Past Surgical History / Comment(s): carotid artery surgery Past Anesthesia/Blood Transfusion Reactions: No Reported Reaction Type of Cardiac Device: Permanent Pacemaker Device Placement Date:: 2009 Past Psychological History: No Psychological Hx Reported Smoking Status: Current every day smoker Past Alcohol Use History: None Reported Past Drug Use History: None Reported - Past Family History Mother Family Medical History: Cancer Brother(s) Family Medical History: Cancer <Viktoria Marquez - Last Filed: 01/31/18 02:56> General Exam Limitations: no limitations General appearance: in no apparent distress, other (This is a well-developed, well-nourished adult male patient in no acute distress. Vital signs upon presentation are temperature 98.4F, pulse 90, respirations 16, blood pressure 143/74, pulse ox 99% on room air.) Eye exam: Present: PERRL, EOMI, other (Patient refusing to open his eyes, holding them closed when I attempt to open them, there is purulent drainage from the right eye. ). Absent: normal appearance, scleral icterus, conjunctival injection, periorbital swelling ENT exam: Present: normal exam, mucous membranes moist Respiratory exam: Present: normal lung sounds bilaterally. Absent: respiratory distress, wheezes, rales, rhonchi, stridor Cardiovascular Exam: Present: regular rate, normal rhythm, normal heart sounds. Absent: systolic murmur, diastolic murmur, rubs, gallop, clicks GI/Abdominal exam: Present: soft, normal bowel sounds. Absent: distended, tenderness, guarding, rebound, rigid Neurological exam: Present: CN II-XII intact, other (selectively responsive. Follows commands. Refuses to answer some questions. ) Psychiatric exam: Present: normal affect, normal mood Skin exam: Present: warm, dry, intact, normal color. Absent: rash <Viktoria Marquez M - Last Filed: 01/31/18 02:56> Vital Signs 01/30/18 01/30/18 01/30/18 18:12 18:19 19:00 Temperature 98.4 F Pulse Rate 84 90 85 Respiratory 16 16 16 Rate Blood Pressure 143/74 154/76 O2 Sat by Pulse 95 99 96 Oximetry 01/30/18 20:56 Temperature Pulse Rate Respiratory 17 Rate Blood Pressure O2 Sat by Pulse Oximetry EKG Findings - EKG Comments: EKG Findings:: EKG obtained at 1835 shows atrial sensed ventricular paced rhythm with frequent atrial paced complexes, ventricular rate 80, OK interval 132, QRS duration 194, QTC 476, QTc 754. <Viktoria Marquez M - Last Filed: 01/31/18 02:56> Medical Decision Making - Lab Data Result diagrams: 01/30/18 18:27 01/30/18 18:27 - Radiology Data Radiology results: report reviewed, image reviewed <Viktoria Marquez - Last Filed: 01/31/18 02:56> - Lab Data Result diagrams: 01/30/18 18:27 01/30/18 18:27 <Marielle Mcbride - Last Filed: 01/31/18 03:09> - Medical Decision Making 73-year-old male patient presents to the emergency department today for evaluation of weakness and eye pain. Physical examination was relatively unremarkable, patient had no focal neurologic deficits. Did use proparacaine to the eyes, was able to visualize close which appear to be intact however patient was unable to tolerate fluorescein stain. Labs reviewed and revealed hemoglobin 12.5, BUN 23, troponin 0.099, no evidence for urinary tract infection. Given weakness and elevated troponin will not patient for cardiology evaluation. Family and patient are agreeable to this plan. (Viktoria Marquez) I was available for consultation in the emergency department. The history and physical exam were done by the midlevel provider. I was consulted for this patient's care. I reviewed the case with the midlevel provider and based on their presentation of the patient, I agree with the assessment, medical decision making and plan of care as documented. (Marielle Mcbride) - Lab Data Lab Results 01/30/18 01/30/18 01/30/18 Range/Units 18:27 18:27 18:27 WBC 8.1 (3.8-10.6) k/uL RBC 4.13 L (4.30-5.90) m/uL Hgb 12.5 L (13.0-17.5) gm/dL Hct 38.9 L (39.0-53.0) % MCV 94.3 (80.0-100.0) fL MCH 30.4 (25.0-35.0) pg MCHC 32.2 (31.0-37.0) g/dL RDW 13.7 (11.5-15.5) % Plt Count 238 (150-450) k/uL Neutrophils % 69 % Lymphocytes % 20 % Monocytes % 5 % Eosinophils % 4 % Basophils % 1 % Neutrophils # 5.6 (1.3-7.7) k/uL Lymphocytes # 1.7 (1.0-4.8) k/uL Monocytes # 0.4 (0-1.0) k/uL Eosinophils # 0.3 (0-0.7) k/uL Basophils # 0.0 (0-0.2) k/uL PT (9.0-12.0) sec INR (<1.2) APTT (22.0-30.0) sec Sodium 141 (137-145) mmol/L Potassium 4.7 (3.5-5.1) mmol/L Chloride 106 (98-107) mmol/L Carbon Dioxide 27 (22-30) mmol/L Anion Gap 8 mmol/L BUN 23 H (9-20) mg/dL Creatinine 1.02 (0.66-1.25) mg/dL Est GFR (CKD-EPI)AfAm 83 (>60 ml/min/1.73 sqM) Est GFR (CKD-EPI)NonAf 72 (>60 ml/min/1.73 sqM) Glucose 137 H (74-99) mg/dL Plasma Lactic Acid Josias (0.7-2.0) mmol/L Calcium 10.3 H (8.4-10.2) mg/dL Total Bilirubin 0.5 (0.2-1.3) mg/dL AST 20 (17-59) U/L ALT 24 (21-72) U/L Alkaline Phosphatase 88 (38-126) U/L Total Creatine Kinase 35 L (55-170) U/L CK-MB (CK-2) 1.6 (0.0-2.4) ng/mL CK-MB (CK-2) Rel Index 4.6 Troponin I 0.099 H* (0.000-0.034) ng/mL Total Protein 6.9 (6.3-8.2) g/dL Albumin 3.8 (3.5-5.0) g/dL Urine Color Urine Appearance (Clear) Urine pH (5.0-8.0) Ur Specific [place] (1.001-1.035) Urine Protein (Negative) Urine Glucose (UA) (Negative) Urine Ketones (Negative) Urine Blood (Negative) Urine Nitrite (Negative) Urine Bilirubin (Negative) Urine Urobilinogen (<2.0) mg/dL Ur Leukocyte Esterase (Negative) Urine RBC (0-5) /hpf Urine WBC (0-5) /hpf Ur Squamous Epith Cells (0-4) /hpf Urine Mucus (None) /hpf 01/30/18 01/30/18 01/30/18 Range/Units 18:27 18:27 19:09 WBC (3.8-10.6) k/uL RBC (4.30-5.90) m/uL Hgb (13.0-17.5) gm/dL Hct (39.0-53.0) % MCV (80.0-100.0) fL MCH (25.0-35.0) pg MCHC (31.0-37.0) g/dL RDW (11.5-15.5) % Plt Count (150-450) k/uL Neutrophils % % Lymphocytes % % Monocytes % % Eosinophils % % Basophils % % Neutrophils # (1.3-7.7) k/uL Lymphocytes # (1.0-4.8) k/uL Monocytes # (0-1.0) k/uL Eosinophils # (0-0.7) k/uL Basophils # (0-0.2) k/uL PT 9.5 (9.0-12.0) sec INR 1.0 (<1.2) APTT 21.5 L (22.0-30.0) sec Sodium (137-145) mmol/L Potassium (3.5-5.1) mmol/L Chloride (98-107) mmol/L Carbon Dioxide (22-30) mmol/L Anion Gap mmol/L BUN (9-20) mg/dL Creatinine (0.66-1.25) mg/dL Est GFR (CKD-EPI)AfAm (>60 ml/min/1.73 sqM) Est GFR (CKD-EPI)NonAf (>60 ml/min/1.73 sqM) Glucose (74-99) mg/dL Plasma Lactic Acid Josias 1.3 (0.7-2.0) mmol/L Calcium (8.4-10.2) mg/dL Total Bilirubin (0.2-1.3) mg/dL AST (17-59) U/L ALT (21-72) U/L Alkaline Phosphatase (38-126) U/L Total Creatine Kinase (55-170) U/L CK-MB (CK-2) (0.0-2.4) ng/mL CK-MB (CK-2) Rel Index Troponin I (0.000-0.034) ng/mL Total Protein (6.3-8.2) g/dL Albumin (3.5-5.0) g/dL Urine Color Light Yellow Urine Appearance Clear (Clear) Urine pH 6.5 (5.0-8.0) Ur Specific [place] 1.010 (1.001-1.035) Urine Protein Trace H (Negative) Urine Glucose (UA) Negative (Negative) Urine Ketones Negative (Negative) Urine Blood Negative (Negative) Urine Nitrite Negative (Negative) Urine Bilirubin Negative (Negative) Urine Urobilinogen <2.0 (<2.0) mg/dL Ur Leukocyte Esterase Small H (Negative) Urine RBC 1 (0-5) /hpf Urine WBC 1 (0-5) /hpf Ur Squamous Epith Cells 1 (0-4) /hpf Urine Mucus Rare H (None) /hpf - Radiology Data CT brain without contrast was obtained. She will cortical atrophy is noted. No mass effect or midline shift. There is no sign of intracranial hemorrhage. There is controlled right occipital cortical infarct. The calvarium is intact. Impression by Dr. Bello shows old right occipital lobe cortical infarct. Cerebral atrophy. No change. No acute abnormality. Two-view x-ray of the chest is obtained. Heart is enlarged. No heart failure. Thoracic aorta is atheromatous. There is left axillar pacemaker with a lead tips in the right ventricle. Impression by Dr. Bello shows mild cardiomegaly. No active cardiopulmonary disease. No change. (Viktoria Marquez) Disposition Decision to Admit Reason: Admit from EC Decision Date: 01/30/18 Decision Time: 21:28 <Viktoria Marquez - Last Filed: 01/31/18 02:56> <Marielle Mcbride - Last Filed: 01/31/18 03:09> Clinical Impression: Weakness, Elevated troponin Disposition: ADMITTED IP TO THIS HOSP
[2018-01-30 18:50] LABS: Basophils % (A) 1 %; Eosinophils # (A) 0.3 k/uL (0-0.7); Eosinophils % (A) 4 %; HCT 38.9 % (39.0-53.0); HGB 12.5 gm/dL (13.0-17.5); Lymphocytes # (A) 1.7 k/uL (1.0-4.8); Lymphocytes % (A) 20 %; MCH 30.4 pg (25.0-35.0); MCHC 32.2 g/dL (31.0-37.0); MCV 94.3 fL (80.0-100.0); Mean Platelet Volume 7.3; Monocytes # (A) 0.4 k/uL (0-1.0); Monocytes % (A) 5 %; Neutrophils # (A) 5.6 k/uL (1.3-7.7); Neutrophils % (A) 69 %; Platelet Count 238 k/uL (150-450); RBC 4.13 m/uL (4.30-5.90); RDW 13.7 % (11.5-15.5); WBC 8.1 k/uL (3.8-10.6)
[2018-01-30 19:01] LABS: Albumin 3.8 g/dL (3.5-5.0); Calcium 10.3 mg/dL (8.4-10.2); Total Bilirubin 0.5 mg/dL (0.2-1.3); Total Protein 6.9 g/dL (6.3-8.2)
[2018-01-30 19:09] LABS: Partial Thromboplastin Time 21.5 sec (22.0-30.0); Prothrombin Time 9.5 sec (9.0-12.0)
--- NOTE | 2018-01-30 19:10 | XR ---
EXAMINATION TYPE: XR chest 2V DATE OF EXAM: 01/30/2018 COMPARISON: 01/17/2018 HISTORY: Weakness TECHNIQUE: Frontal and lateral views of the chest are obtained. FINDINGS: Heart is enlarged. There is no heart failure. Thoracic aorta is atheromatous. There is lef t axillary pacemaker with the lead tips in the right ventricle. IMPRESSION: Mild cardiomegaly. No active cardiopulmonary disease. No change.
[2018-01-30 19:15] LABS: Potassium 4.7 mmol/L (3.5-5.1)
[2018-01-30 19:19] LABS: Creatine Kinase MB 1.6 ng/mL (0.0-2.4)
[2018-01-30 19:26] LABS: Troponin I 0.099 ng/mL (0.000-0.034)
[2018-01-30 19:30] LABS: Appearance,Urine Clear (Clear); Bilirubin,Urine Negative (Negative); Blood,Urine Negative (Negative); Color,Urine Light Yellow; Glucose,Urine (UA) Negative (Negative); Ketones,Urine Negative (Negative); Leukocyte Esterase,Urine Small (Negative); Mucus,Urine Rare /hpf; Nitrite,Urine Negative (Negative); PH, Urine 6.5 (5.0-8.0); Protein,Urine Trace (Negative); RBC,Urine 1 /hpf (0-5); Squamous Epithelial Cell,Urine 1 /hpf (0-4); Urobilinogen,Urine <2.0 mg/dL (<2.0); WBC,Urine 1 /hpf (0-5)
--- NOTE | 2018-01-30 20:15 | CT ---
EXAMINATION TYPE: CT brain wo con DATE OF EXAM: 01/30/2018 COMPARISON: 01/16/2018 HISTORY: Patient unable to open eyes today. Please include orbits, per [employer]. CT DLP: 2700.8 mGycm Automated exposure control for dose reduction was used. FINDINGS: There is cerebral cortical atrophy. There is no mass effect nor midline shift. There is no sign of in tracranial hemorrhage. There is larger old right occipital cortical infarct. The calvarium is intact. 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 CEREBRAL ATROPHY. NO CHANGE. NO ACUTE ABNORMALITY.
[2018-01-30] MEDS ORDERED: NALOXONE 0.4 MG/ML 1 ML VIAL IV PRN (21:25)
[2018-01-30] MEDS: SODIUM CHLORIDE 0.9% 1,000 ML IV SCH (21:43)
[2018-01-30 22:53] VITALS: BMI 24.8
[2018-01-31 01:34] LABS: Creatine Kinase MB 1.5 ng/mL (0.0-2.4)
[2018-01-31 01:48] LABS: Troponin I 0.074 ng/mL (0.000-0.034)
[2018-01-31 05:44] LABS: Glucose,Whole Blood 185 mg/dL (75-99)
[2018-01-31] MEDS: CARVEDILOL 6.25 MG TAB PO SCH ×2 (06:45→17:27)
[2018-01-31] MEDS: INSULIN ASPART 100 UNIT/ML 1 ML 10 ML VIAL SQ SCH ×4 (06:45→21:12)
[2018-01-31 06:59] LABS: Basophils # (A) 0.1 k/uL (0-0.2); Basophils % (A) 1 %; Eosinophils # (A) 0.3 k/uL (0-0.7); Eosinophils % (A) 4 %; HCT 35.5 % (39.0-53.0); HGB 11.6 gm/dL (13.0-17.5); Lymphocytes # (A) 1.8 k/uL (1.0-4.8); Lymphocytes % (A) 25 %; MCH 31.2 pg (25.0-35.0); MCHC 32.8 g/dL (31.0-37.0); Mean Platelet Volume 6.7; Monocytes # (A) 0.4 k/uL (0-1.0); Monocytes % (A) 6 %; Neutrophils # (A) 4.5 k/uL (1.3-7.7); Neutrophils % (A) 63 %; Platelet Count 248 k/uL (150-450); RBC 3.74 m/uL (4.30-5.90); RDW 13.7 % (11.5-15.5); WBC 7.1 k/uL (3.8-10.6)
[2018-01-31 07:13] LABS: Albumin 3.2 g/dL (3.5-5.0); Calcium 9.7 mg/dL (8.4-10.2); Potassium 4.3 mmol/L (3.5-5.1); Total Bilirubin 0.5 mg/dL (0.2-1.3); Total Protein 5.9 g/dL (6.3-8.2)
[2018-01-31 07:29] LABS: Creatine Kinase MB 1.7 ng/mL (0.0-2.4)
[2018-01-31 07:46] LABS: Troponin I 0.125 ng/mL (0.000-0.034)
[2018-01-31] MEDS: CARBIDOPA-LEVODOPA 25-100 MG 1 EACH TAB PO SCH ×2 (07:54→21:12)
[2018-01-31] MEDS: SACUBITRIL/VALSARTAN 24 MG-26 MG TABLET PO SCH ×2 (09:52→21:12)
[2018-01-31] MEDS: ATORVASTATIN 40 MG TAB PO SCH (09:53)
--- NOTE | 2018-01-31 10:36 | P.HPIM ---
History of Present Illness This is a pleasant 73 years old male with past medical history of congestive heart failure, CVA, diabetes mellitus, essential hypertension, hyperlipidemia, Parkinson disease. Patient is status post permanent pacemaker. He is a patient of Dr. Mendes. Patient presents because of generalized weakness. Patient has been recently discharged from the hospital about couple weeks ago for lithium toxicity and generalized weakness. At that time he is been evaluated by Dr. Jarrell from physiatry chest and they recommended inpatient rehab On admission his CBC and BMP were unremarkable however he has elevated troponin 0.09-0.125. EKG showing paced rhythm with QTC 754. CTA was negative for acute event however it shows old right occipital infarct. Chest x-ray: No acute and active cardiopulmonary disease. Review of Systems CONSTITUTIONAL: No fever, no malaise, no fatigue. HEENT: No recent visual problems or hearing problems. Denied any sore throat. CARDIOVASCULAR: No orthopnea, PND, no palpitations, no syncope. PULMONARY: No shortness of breath, no cough, no hemoptysis. GASTROINTESTINAL: No diarrhea, no nausea, no vomiting, no abdominal pain. Normoactive bowel sounds. NEUROLOGICAL: No headaches, no weakness, no numbness. HEMATOLOGICAL: Denies any bleeding or petechiae. GENITOURINARY: Denies any burning micturition, frequency, or urgency. MUSCULOSKELETAL/RHEUMATOLOGICAL: Denies any joint pain, swelling, or any muscle pain. ENDOCRINE: Denies any polyuria or polydipsia. Past Medical History Past Medical History: Heart Failure, CVA/TIA, Diabetes Mellitus, Hyperlipidemia , Hypertension Additional Past Medical History / Comment(s): Missing ring finger on right hand , Parkinson's History of Any Multi-Drug Resistant Organisms: None Reported Past Surgical History: Pacemaker Additional Past Surgical History / Comment(s): carotid artery surgery Past Anesthesia/Blood Transfusion Reactions: No Reported Reaction Type of Cardiac Device: Permanent Pacemaker Device Placement Date:: 2009 Past Psychological History: No Psychological Hx Reported Smoking Status: Current every day smoker Past Alcohol Use History: None Reported Past Drug Use History: None Reported - Past Family History Mother Family Medical History: Cancer Brother(s) Family Medical History: Cancer Medications and Allergies Home Medications Medication Instructions Recorded Confirmed Type Aspirin 81 mg PO HS 01/11/15 01/31/18 History Atorvastatin [Lipitor] 40 mg PO HS 01/11/15 01/31/18 History Ferrous Sulfate [Iron (65 MG 325 mg PO AC-LUNCH 01/11/15 01/31/18 History Elemental)] Cilostazol [Pletal] 50 mg PO BID 09/08/17 01/31/18 History Armodafinil [Nuvigil] 250 mg PO QAM 12/16/17 01/31/18 History Calcium Carbonate [Calcium] 600 mg PO DAILY 12/16/17 01/31/18 History Cranberry Fruit Concentrate 450 mg PO BID 01/16/18 01/31/18 History [Cranberry] Famotidine [Pepcid] 20 mg PO BID 01/16/18 01/31/18 History Insulin Aspart [NovoLOG See Protocol SQ DIRECTED 01/16/18 01/31/18 History (formulary)] Insulin Detemir [Levemir] 42 unit SQ HS 01/16/18 01/31/18 History Carvedilol [Coreg] 6.25 mg PO BID-W/MEALS #60 tab 01/21/18 01/31/18 Rx Sodium Bicarbonate Tab 650 mg PO BID #60 tab 01/21/18 01/31/18 Rx Carbidopa-Levodopa 25-100 mg 1 tab PO BID 01/31/18 01/31/18 History [Sinemet 25-100] Allergies Allergy/AdvReac Type Severity Reaction Status Date / Time No Known Allergies Allergy Verified 01/31/18 08:46 Physical Exam Vitals: Vital Signs Temp Pulse Pulse Resp BP BP Pulse Ox 01/31/18 07:43 83 18 01/31/18 07:36 97.7 F 85 18 161/74 96 01/31/18 04:00 98.5 F 92 20 126/69 98 01/31/18 00:00 98 F 86 20 141/70 97 01/30/18 22:14 98.2 F 77 20 139/63 01/30/18 21:57 98.4 F 87 18 116/81 98 01/30/18 20:56 17 01/30/18 19:00 85 16 154/76 96 01/30/18 18:19 98.4 F 90 16 143/74 99 01/30/18 18:12 84 16 95 Intake and Output 01/30/18 01/31/18 01/31/18 22:59 06:59 14:59 Intake Total 60 Balance 60 Intake: Intake, IV Titration 60 Amount Sodium Chloride 0.9% 1, 60 000 ml @ 20 mls/hr IV . Q24H [facility] Rx#:[id number] Oral 0 Other: Voiding Method Diaper Diaper Incontinent # Voids 1 Weight 78.5 kg 101 kg GENERAL: The patient is alert and oriented x3, not in any acute distress. Well developed, well nourished. HEENT: Pupils are round and equally reacting to light. EOMI. No scleral icterus. No conjunctival pallor. Normocephalic, atraumatic. No pharyngeal erythema. No thyromegaly. CARDIOVASCULAR: S1 and S2 present. No murmurs, rubs, or gallops. PULMONARY: Chest is clear to auscultation, no wheezing or crackles. ABDOMEN: Soft, nontender, nondistended, normoactive bowel sounds. No palpable organomegaly. MUSCULOSKELETAL: No joint swelling or deformity. EXTREMITIES: No cyanosis, clubbing, or pedal edema. NEUROLOGICAL: Gross neurological examination did not reveal any focal deficits. SKIN: No rashes. Results CBC & Chem 7: 01/31/18 06:15 01/31/18 06:15 Labs: Abnormal Lab Results - Last 24 Hours (Table) 01/30/18 01/30/18 01/30/18 Range/Units 18:27 18:27 18:27 RBC 4.13 L (4.30-5.90) m/uL Hgb 12.5 L (13.0-17.5) gm/dL Hct 38.9 L (39.0-53.0) % APTT (22.0-30.0) sec BUN 23 H (9-20) mg/dL Glucose 137 H (74-99) mg/dL POC Glucose (mg/dL) (75-99) mg/dL Calcium 10.3 H (8.4-10.2) mg/dL AST (17-59) U/L Total Creatine Kinase 35 L (55-170) U/L Troponin I 0.099 H* (0.000-0.034) ng/mL Total Protein (6.3-8.2) g/dL Albumin (3.5-5.0) g/dL Urine Protein (Negative) Ur Leukocyte Esterase (Negative) Urine Mucus (None) /hpf 1001/30/18 01/31/18 Range/Units 18:27 19:09 00:34 RBC (4.30-5.90) m/uL Hgb (13.0-17.5) gm/dL Hct (39.0-53.0) % APTT 21.5 L (22.0-30.0) sec BUN (9-20) mg/dL Glucose (74-99) mg/dL POC Glucose (mg/dL) (75-99) mg/dL Calcium (8.4-10.2) mg/dL AST (17-59) U/L Total Creatine Kinase 29 L (55-170) U/L Troponin I 0.074 H* (0.000-0.034) ng/mL Total Protein (6.3-8.2) g/dL Albumin (3.5-5.0) g/dL Urine Protein Trace H (Negative) Ur Leukocyte Esterase Small H (Negative) Urine Mucus Rare H (None) /hpf 01/31/18 01/31/18 01/31/18 Range/Units 05:42 06:15 06:15 RBC 3.74 L (4.30-5.90) m/uL Hgb 11.6 L (13.0-17.5) gm/dL Hct 35.5 L (39.0-53.0) % APTT (22.0-30.0) sec BUN (9-20) mg/dL Glucose (74-99) mg/dL POC Glucose (mg/dL) 185 H (75-99) mg/dL Calcium (8.4-10.2) mg/dL AST (17-59) U/L Total Creatine Kinase 30 L (55-170) U/L Troponin I 0.125 H* (0.000-0.034) ng/mL Total Protein (6.3-8.2) g/dL Albumin (3.5-5.0) g/dL Urine Protein (Negative) Ur Leukocyte Esterase (Negative) Urine Mucus (None) /hpf 01/31/18 Range/Units 06:15 RBC (4.30-5.90) m/uL Hgb (13.0-17.5) gm/dL Hct (39.0-53.0) % APTT (22.0-30.0) sec BUN 21 H (9-20) mg/dL Glucose 175 H (74-99) mg/dL POC Glucose (mg/dL) (75-99) mg/dL Calcium (8.4-10.2) mg/dL AST 13 L (17-59) U/L Total Creatine Kinase (55-170) U/L Troponin I (0.000-0.034) ng/mL Total Protein 5.9 L (6.3-8.2) g/dL Albumin 3.2 L (3.5-5.0) g/dL Urine Protein (Negative) Ur Leukocyte Esterase (Negative) Urine Mucus (None) /hpf Thrombosis Risk Factor Assmnt - Choose All That Apply Each Risk Factor Represents 3 Points: Age 75 years or older Thrombosis Risk Factor Assessment Total Risk Factor Score: 3 Thrombosis Risk Factor Assessment Level: Moderate Risk Assessment and Plan Assessment: history of congestive heart failure, status post permanent pacemakerICD placement. EF 45% History of CVA, old right occipital infarct in the CT of the brain Diabetes mellitus Essential hypertension Hyperlipidemia Possible history of Parkinson disease History of lithium toxicity Diabetic nephropathy, baseline creatinine 1.1-1.3 Plan: This is a pleasant 73 years old male who presents because of generalized weakness. Patient with elevated troponin. Continue with supportive care and will call cardiology consultation. Neurologist has been called from emergency room to evaluate the patient in the view of her history of a old stroke . Labs and medication were resumed. Continue same treatment. Continue with symptomatic treatment. Resume home medication. Monitor lytes and vitals. DVT and GI prophylaxis. Further recommendationsof the clinical course of the patient DVT prophylaxis: Subcutaneous heparin GI Prophylaxis: Pepcid PT/OT: Pending, will call physiatry's consult Prognosis is guarded
[2018-01-31 11:14] LABS: Glucose,Whole Blood 219 mg/dL (75-99)
--- NOTE | 2018-01-31 11:32 | P.CONS ---
History of Present Illness - Chief Complaint Medical debility - History of Present Illness I had the opportunity see patient for inpatient rehab consultation with regard to medical debility. He is known to me from recent inpatient consultation January 16. Then he was admitted January 12 with lethargy related to lithium toxicity, nonoliguric renal failure, encephalopathy, nonischemic cardiomyopathy. Patient did started therapies and demonstrated ability tolerate and benefit from therapies. Request made for authorization/approval inpatient imitation from insurance and denied by insurance sales producer, [employer]. I have represcribed PT and OT at this time. I Previous functional history: 72-year-old right-handed white male, , 2 floor home with , retired. does advanced homemaking tasks and assist patient with ADL activity. Patient was using 4 wheeled walker. 2 pack a day smoker but no medical. Dr. Mendes regular doctor. Review of Systems Review of systems: ENT: Denies sneezes or discharge. Eyes: Denies discharge or photophobia. Cardiac: Denies chest pain or palpitation. Pulmonary: Denies cough or shortness of breath. Gastrointestinal: Denies nausea, emesis, constipation, diarrhea. Genitourinary: Denies discharge or frequency. Musculoskeletal: Denies muscle or bone aches. Neurologic: Gen. weakness. Endocrine: Denies shakes or sweats. Oncology: Denies cancers. Dermatologic: Denies rash, itching, pruritus. ALLERGY/immunology: Denies sneezes, rashes. Past Medical History Past Medical History: Heart Failure, CVA/TIA, Diabetes Mellitus, Hyperlipidemia , Hypertension Additional Past Medical History / Comment(s): Missing ring finger on right hand , Parkinson's History of Any Multi-Drug Resistant Organisms: None Reported Past Surgical History: Pacemaker Additional Past Surgical History / Comment(s): carotid artery surgery Past Anesthesia/Blood Transfusion Reactions: No Reported Reaction Type of Cardiac Device: Permanent Pacemaker Device Placement Date:: 2009 Past Psychological History: No Psychological Hx Reported Smoking Status: Current every day smoker Past Alcohol Use History: None Reported Past Drug Use History: None Reported - Past Family History Mother Family Medical History: Cancer Brother(s) Family Medical History: Cancer Medications and Allergies Home Medications Medication Instructions Recorded Confirmed Type Aspirin 81 mg PO HS 01/11/15 01/31/18 History Atorvastatin [Lipitor] 40 mg PO HS 01/11/15 01/31/18 History Ferrous Sulfate [Iron (65 MG 325 mg PO AC-LUNCH 01/11/15 01/31/18 History Elemental)] Cilostazol [Pletal] 50 mg PO BID 09/08/17 01/31/18 History Armodafinil [Nuvigil] 250 mg PO QAM 12/16/17 01/31/18 History Calcium Carbonate [Calcium] 600 mg PO DAILY 12/16/17 01/31/18 History Cranberry Fruit Concentrate 450 mg PO BID 01/16/18 01/31/18 History [Cranberry] Famotidine [Pepcid] 20 mg PO BID 01/16/18 01/31/18 History Insulin Aspart [NovoLOG See Protocol SQ DIRECTED 01/16/18 01/31/18 History (formulary)] Insulin Detemir [Levemir] 42 unit SQ HS 01/16/18 01/31/18 History Carvedilol [Coreg] 6.25 mg PO BID-W/MEALS #60 tab 01/21/18 01/31/18 Rx Sodium Bicarbonate Tab 650 mg PO BID #60 tab 01/21/18 01/31/18 Rx Carbidopa-Levodopa 25-100 mg 1 tab PO BID 01/31/18 01/31/18 History [Sinemet 25-100] Allergies Allergy/AdvReac Type Severity Reaction Status Date / Time No Known Allergies Allergy Verified 01/31/18 08:46 Physical Exam Vitals: Vital Signs Temp Pulse Pulse Resp BP BP Pulse Ox 01/31/18 11:04 97.9 F 81 18 135/60 95 01/31/18 11:01 83 18 01/31/18 07:43 83 18 01/31/18 07:36 97.7 F 85 18 161/74 96 01/31/18 04:00 98.5 F 92 20 126/69 98 01/31/18 00:00 98 F 86 20 141/70 97 01/30/18 22:14 98.2 F 77 20 139/63 01/30/18 21:57 98.4 F 87 18 116/81 98 01/30/18 20:56 17 01/30/18 19:00 85 16 154/76 96 01/30/18 18:19 98.4 F 90 16 143/74 99 01/30/18 18:12 84 16 95 Intake and Output 01/30/18 01/31/18 01/31/18 22:59 06:59 14:59 Intake Total 60 Balance 60 Intake: Intake, IV Titration 60 Amount Sodium Chloride 0.9% 1, 60 000 ml @ 20 mls/hr IV . Q24H [facility] Rx#:[id number] Oral 0 Other: Voiding Method Diaper Diaper Incontinent # Voids 1 Weight 78.5 kg 101 kg Skin: Atrophic, intact. General: Medium build and fatigued appearance. Head: Normocephalic, atraumatic. Eyes: Symmetric. Pupils equal round. Ears: Symmetric. Hearing within normal limits. Mouth: Clear. Neck: Supple. Carotid without bruit. Cardiac: Regular rate and rhythm. Lungs: Clear anteriorly and posteriorly. Abdomen: Soft active nontender. Extremities: Normal tone. Neurological: Mental status: Alert, poorly cooperative, pleasant. Cranial nerves: Symmetric facial tone and trapezius. Motor: Poor movement all 4 limbs. Sensation: Intact throughout. DTRs: Symmetric and equal throughout. Mobility: Requires maximal assistance for bed mobility. Results CBC & Chem 7: 01/31/18 06:15 01/31/18 06:15 Labs: Abnormal Lab Results - Last 24 Hours (Table) 01/30/18 01/30/18 01/30/18 Range/Units 18:27 18:27 18:27 RBC 4.13 L (4.30-5.90) m/uL Hgb 12.5 L (13.0-17.5) gm/dL Hct 38.9 L (39.0-53.0) % APTT (22.0-30.0) sec BUN 23 H (9-20) mg/dL Glucose 137 H (74-99) mg/dL POC Glucose (mg/dL) (75-99) mg/dL Calcium 10.3 H (8.4-10.2) mg/dL AST (17-59) U/L Total Creatine Kinase 35 L (55-170) U/L Troponin I 0.099 H* (0.000-0.034) ng/mL Total Protein (6.3-8.2) g/dL Albumin (3.5-5.0) g/dL Urine Protein (Negative) Ur Leukocyte Esterase (Negative) Urine Mucus (None) /hpf 01/30/18 01/30/18 01/31/18 Range/Units 18:27 19:09 00:34 RBC (4.30-5.90) m/uL Hgb (13.0-17.5) gm/dL Hct (39.0-53.0) % APTT 21.5 L (22.0-30.0) sec BUN (9-20) mg/dL Glucose (74-99) mg/dL POC Glucose (mg/dL) (75-99) mg/dL Calcium (8.4-10.2) mg/dL AST (17-59) U/L Total Creatine Kinase 29 L (55-170) U/L Troponin I 0.074 H* (0.000-0.034) ng/mL Total Protein (6.3-8.2) g/dL Albumin (3.5-5.0) g/dL Urine Protein Trace H (Negative) Ur Leukocyte Esterase Small H (Negative) Urine Mucus Rare H (None) /hpf 01/31/18 01/31/18 01/31/18 Range/Units 05:42 06:15 06:15 RBC 3.74 L (4.30-5.90) m/uL Hgb 11.6 L (13.0-17.5) gm/dL Hct 35.5 L (39.0-53.0) % APTT (22.0-30.0) sec BUN (9-20) mg/dL Glucose (74-99) mg/dL POC Glucose (mg/dL) 185 H (75-99) mg/dL Calcium (8.4-10.2) mg/dL AST (17-59) U/L Total Creatine Kinase 30 L (55-170) U/L Troponin I 0.125 H* (0.000-0.034) ng/mL Total Protein (6.3-8.2) g/dL Albumin (3.5-5.0) g/dL Urine Protein (Negative) Ur Leukocyte Esterase (Negative) Urine Mucus (None) /hpf 01/31/18 01/31/18 Range/Units 06:15 11:10 RBC (4.30-5.90) m/uL Hgb (13.0-17.5) gm/dL Hct (39.0-53.0) % APTT (22.0-30.0) sec BUN 21 H (9-20) mg/dL Glucose 175 H (74-99) mg/dL POC Glucose (mg/dL) 219 H (75-99) mg/dL Calcium (8.4-10.2) mg/dL AST 13 L (17-59) U/L Total Creatine Kinase (55-170) U/L Troponin I (0.000-0.034) ng/mL Total Protein 5.9 L (6.3-8.2) g/dL Albumin 3.2 L (3.5-5.0) g/dL Urine Protein (Negative) Ur Leukocyte Esterase (Negative) Urine Mucus (None) /hpf Assessment and Plan (1) ANTHONY (acute kidney injury) Current Visit: No Status: Acute Code(s): N17.9 - ACUTE KIDNEY FAILURE, UNSPECIFIED SNOMED Code(s): 75996446 (2) CHF (congestive heart failure) Current Visit: No Status: Acute Code(s): I50.9 - HEART FAILURE, UNSPECIFIED SNOMED Code(s): 41622182 Plan: Impression: 1. Medical debility. 2. CHF. 3. Acute on chronic kidney injury. Comments and plan: At this time prescribed PT and OT. Patient attitude appears much poorer than previous evaluation 2 weeks ago. Have discussed with and daughter. Note that I did approve patient for inpatient rehab 2 weeks ago but was denied by insurance sales producer. May have missed opportunity for benefit from inpatient rehab, discussed with family. Regardless, if patient improves, insurance still manage by [employer] which is very unlikely to approve any inpatient rehab stay. This was discussed with family as well.
--- NOTE | 2018-01-31 14:51 | CONS ---
CONSULTATION Mr. Chan is a 73-year-old male who was recently discharged from [facility] when he was admitted with lithium overdose. He presented again to the emergency room brought in by his because he is quite weak, unable to open his eyes and ambulate. Patient has a known history of severe nonischemic cardiomyopathy, status post ICD Bi-V pacing. He is followed by Dr. Greenwood in [place] who is his own motion study engineer. He had a prior history of stroke about 11 years ago, has not been very active physically. He smokes up to a 1-1/2 to 2 packs a day. He has a questionable history of prior myocardial infarction prior to the stroke, although full details of that are not available to me. According to the , he has been feeling quite weak. He denies any symptoms of chest pain. He had no dizziness or palpitation. No syncope. He has no significant peripheral edema, no PND, nor orthopnea. MEDICATION: At home included insulin, Cilostazol, Coreg 6.5 mg twice a day, Sinemet, calcium, Lipitor 4 mg daily, aspirin once a day, and Nuvigil. REVIEW OF SYSTEMS: RESPIRATORY SYSTEM: He has a cough, history of chronic tobacco use and dyspnea. GI SYSTEM: No recent GI bleeding. No peptic ulcer disease. SYSTEM: No dysuria or hematuria. NERVOUS SYSTEM: No history of seizure. He had a history of stroke. PHYSICAL EXAMINATION: A 73-year-old male, sleepy, responding to verbal stimulation and opening his eyes, sitting up. Blood pressure 160/70 with a heart rate in the 80s. HEAD: Normocephalic. EYES: Sclerae nonicteric. NECK: Good upstroke, no bruit. Lungs with decreased air exchange, no wheezes. HEART: Regular rate and rhythm. S1, S2. No S3 with systolic murmur heard at the base. No diastolic murmur, no rub. ABDOMEN: Soft, nontender. Positive bowel sounds, no organomegaly. EXTREMITIES: No significant edema with mild skin changes. LAB DATA: He had an echocardiogram on January 17 that showed ejection fraction 40%-45% with mild mitral and tricuspid regurgitation with no significant pulmonary hypertension. His EKG reveals sinus mechanism with 100% ventricle pacing. His chest x-ray revealed mild cardiomegaly with no infiltrate. His brain CT scan revealed an old right occipital lobe infarct with cerebral atrophy and no changes. His lab data revealed BUN and creatinine 21 and 1, potassium 4.3, hemoglobin of 11.6. His troponin 0.099, 0.074, 0.124. IMPRESSION: 1. Change in mental status with fatigue, could be related to the lithium withdrawal and patient prior history of hallucination following his stroke. 2. Mild troponin elevation most likely presenting a type 2 event in a patient with known history of severe nonischemic cardiomyopathy. 3. Severe nonischemic cardiomyopathy with no overt signs of heart failure at this time. 4. Status post ICD Bi-V pacing. 5. Chronic tobacco use. 6. Hyperlipidemia. RECOMMENDATION: From the cardiac standpoint, I do not see any evidence of acute ischemic event. I will continue on the beta liliana as present. I will re-initiate Entresto he was on in the past. Will initiate the statin treatment. Follow his heart rate and blood pressure and depending on that, further recommendation will be made. The patient will be evaluated by the Neurology Service and depending on his progress, further recommendation will be made. Thank you for this consult. Will follow with you. ULISSESL / REMYN: [id number] /
[2018-01-31 16:27] LABS: Glucose,Whole Blood 200 mg/dL (75-99)
--- NOTE | 2018-01-31 19:35 | P.CNNES ---
History of Present Illness Consult date: 01/31/18 History of Present Illness: The patient is a 73-year-old man who was recently hospitalized with lithium toxicity and chronic renal disease who is admitted to the hospital with is an elevated troponin. History is obtained from the chart and from the patient's was at the bedside. The patient's reports that he was fine until yesterday he seemed to sleep all day. He woke up around 5 PM but very lethargic. Also his urine had a strong smell to it. She states he wouldn't open his eyes yesterday. She reports she's been in and out of the hospital several times this year. He has a history of stroke and she she reports that he was hospitalized about 10 years ago at [facility] for this. The patient had a CT of the brain in the emergency room which showed an old chronic occipital infarct. Is unchanged from previous study done earlier this month. The patient denies any complaints. He denies any pain or weakness. He has been taken off lithium since last admission. He does not report have any history of depression. His reports that lithium was given to reduce his hallucinations. Review of Systems ROS unobtainable: due to mental status Past Medical History Past Medical History: Heart Failure, CVA/TIA, Diabetes Mellitus, Hyperlipidemia , Hypertension Additional Past Medical History / Comment(s): Missing ring finger on right hand , Parkinson's History of Any Multi-Drug Resistant Organisms: None Reported Past Surgical History: Pacemaker Additional Past Surgical History / Comment(s): carotid artery surgery Past Anesthesia/Blood Transfusion Reactions: No Reported Reaction Type of Cardiac Device: Permanent Pacemaker Device Placement Date:: 2009 Past Psychological History: No Psychological Hx Reported Smoking Status: Current every day smoker Past Alcohol Use History: None Reported Past Drug Use History: None Reported - Past Family History Mother Family Medical History: Cancer Brother(s) Family Medical History: Cancer Medications and Allergies Home Medications Medication Instructions Recorded Confirmed Type Aspirin 81 mg PO HS 01/11/15 01/31/18 History Atorvastatin [Lipitor] 40 mg PO HS 01/11/15 01/31/18 History Ferrous Sulfate [Iron (65 MG 325 mg PO AC-LUNCH 01/11/15 01/31/18 History Elemental)] Cilostazol [Pletal] 50 mg PO BID 09/08/17 01/31/18 History Armodafinil [Nuvigil] 250 mg PO QAM 12/16/17 01/31/18 History Calcium Carbonate [Calcium] 600 mg PO DAILY 12/16/17 01/31/18 History Cranberry Fruit Concentrate 450 mg PO BID 01/16/18 01/31/18 History [Cranberry] Famotidine [Pepcid] 20 mg PO BID 01/16/18 01/31/18 History Insulin Aspart [NovoLOG See Protocol SQ DIRECTED 01/16/18 01/31/18 History (formulary)] Insulin Detemir [Levemir] 42 unit SQ HS 01/16/18 01/31/18 History Carvedilol [Coreg] 6.25 mg PO BID-W/MEALS #60 tab 01/21/18 01/31/18 Rx Sodium Bicarbonate Tab 650 mg PO BID #60 tab 01/21/18 01/31/18 Rx Carbidopa-Levodopa 25-100 mg 1 tab PO BID 01/31/18 01/31/18 History [Sinemet 25-100] Allergies Allergy/AdvReac Type Severity Reaction Status Date / Time No Known Allergies Allergy Verified 01/31/18 08:46 Physical Examination - Vital Signs Vital Signs: Vital Signs Temp Pulse Pulse Resp BP BP Pulse Ox 01/31/18 15:49 97.1 F L 74 18 124/56 96 01/31/18 15:48 81 18 01/31/18 11:04 97.9 F 81 18 135/60 95 01/31/18 11:01 83 18 01/31/18 07:43 83 18 01/31/18 07:36 97.7 F 85 18 161/74 96 01/31/18 04:00 98.5 F 92 20 126/69 98 01/31/18 00:00 98 F 86 20 141/70 97 01/30/18 22:14 98.2 F 77 20 139/63 01/30/18 21:57 98.4 F 87 18 116/81 98 01/30/18 20:56 17 Intake and Output 01/31/18 01/31/18 01/31/18 06:59 14:59 22:59 Intake Total 240 180 Balance 240 180 Intake: Intake, IV Titration 240 Amount Sodium Chloride 0.9% 1, 240 000 ml @ 20 mls/hr IV . Q24H [facility] Rx#:[id number] Oral 180 Other: Voiding Method Diaper Diaper Diaper Incontinent Incontinent # Voids 1 1 Weight 101 kg - Constitutional General appearance: average body habitus, cooperative - EENT EENT: PERRL, hearing intact, vision intact - Respiratory Respiratory: lungs clear - Cardiovascular Cardiovascular: regular rate - Neurologic Neurologic examination: Mental status: He was awake, alert, oriented to person. He did not give the date but he knew he was in [facility]. He knew his birthday. There is no a aphasia or dysarthria. Cranial nerves II through XII are grossly intact next Motor examination he was able to move all 4 extremities equally next Coordination [id number] was intact Sensory examination was intact to light touch X Gait was not tested Results - Laboratory Findings CBC and BMP: 01/31/18 06:15 01/31/18 06:15 Abnormal Lab Findings: Abnormal Labs 01/30/18 01/30/18 01/30/18 18:27 18:27 18:27 RBC 4.13 L Hgb 12.5 L Hct 38.9 L APTT BUN 23 H Glucose 137 H POC Glucose (mg/dL) Hemoglobin A1c Calcium 10.3 H AST Total Creatine Kinase 35 L Troponin I 0.099 H* Total Protein Albumin Urine Protein Ur Leukocyte Esterase Urine Mucus 01/30/18 01/30/18 01/30/18 18:27 18:27 19:09 RBC Hgb Hct APTT 21.5 L BUN Glucose POC Glucose (mg/dL) Hemoglobin A1c 8.0 H Calcium AST Total Creatine Kinase Troponin I Total Protein Albumin Urine Protein Trace H Ur Leukocyte Esterase Small H Urine Mucus Rare H 01/31/18 01/31/18 01/31/18 00:34 05:42 06:15 RBC Hgb Hct APTT BUN Glucose POC Glucose (mg/dL) 185 H Hemoglobin A1c Calcium AST Total Creatine Kinase 29 L 30 L Troponin I 0.074 H* 0.125 H* Total Protein Albumin Urine Protein Ur Leukocyte Esterase Urine Mucus 01/31/18 01/31/18 01/31/18 06:15 06:15 11:10 RBC 3.74 L Hgb 11.6 L Hct 35.5 L APTT BUN 21 H Glucose 175 H POC Glucose (mg/dL) 219 H Hemoglobin A1c Calcium AST 13 L Total Creatine Kinase Troponin I Total Protein 5.9 L Albumin 3.2 L Urine Protein Ur Leukocyte Esterase Urine Mucus 01/31/18 16:25 RBC Hgb Hct APTT BUN Glucose POC Glucose (mg/dL) 200 H Hemoglobin A1c Calcium AST Total Creatine Kinase Troponin I Total Protein Albumin Urine Protein Ur Leukocyte Esterase Urine Mucus Assessment and Plan (1) Generalized weakness Current Visit: Yes Status: Acute SNOMED Code(s): 64899831 (2) History of stroke Current Visit: Yes Status: Chronic SNOMED Code(s): 180684993 (3) Elevated troponin Current Visit: Yes Status: Acute SNOMED Code(s): 519859004 Plan: The patient is a 74-year-old man with history of stroke. He was recently hospitalized with lithium toxicity. Dora was taken away and the patient is brought back because of unsteady gait and general weakness. On neurologic examination the patient is awake alert able to communicate and appears depressed. The patient may be having some lithium withdrawal. There is no evidence of an acute stroke. He does have a history of prior stroke which is unchanged on CT brain. Recommend physical therapy and rehab. Also recommend psych evaluation
[2018-01-31 20:55] LABS: Glucose,Whole Blood 259 mg/dL (75-99)
[2018-01-31] MEDS: ASPIRIN 81 MG PO SCH (21:12)
[2018-01-31] MEDS: SODIUM CHLORIDE 0.9% 1,000 ML IV SCH (21:14)
[2018-02-01] MEDS: HEPARIN SODIUM,PORCINE 5,000 UNIT/ML 1 ML VIAL SQ SCH ×3 (01:23→19:39)
[2018-02-01] MEDS: SODIUM CHLORIDE 0.9% 1,000 ML IV SCH ×3 (01:24→19:39)
[2018-02-01 05:48] LABS: Glucose,Whole Blood 186 mg/dL (75-99)
[2018-02-01] MEDS: INSULIN ASPART 100 UNIT/ML 1 ML 10 ML VIAL SQ SCH ×4 (06:32→20:56)
[2018-02-01] MEDS: CARVEDILOL 6.25 MG TAB PO SCH ×2 (06:33→17:00)
[2018-02-01 07:09] LABS: Calcium 9.4 mg/dL (8.4-10.2); Potassium 4.1 mmol/L (3.5-5.1)
[2018-02-01] MEDS: CARBIDOPA-LEVODOPA 25-100 MG 1 EACH TAB PO SCH ×2 (08:17→19:38)
[2018-02-01] MEDS: SACUBITRIL/VALSARTAN 24 MG-26 MG TABLET PO SCH ×2 (08:17→19:39)
[2018-02-01] MEDS: ATORVASTATIN 40 MG TAB PO SCH (08:17)
--- NOTE | 2018-02-01 09:13 | P.PN ---
Subjective This is a pleasant 73 years old male with past medical history of congestive heart failure, CVA, diabetes mellitus, essential hypertension, hyperlipidemia, Parkinson disease. Patient is status post permanent pacemaker. He is a patient of Dr. Mendes. Patient presents because of generalized weakness. Patient has been recently discharged from the hospital about couple weeks ago for lithium toxicity and generalized weakness. At that time he is been evaluated by Dr. Jarrell from physiatry chest and they recommended inpatient rehab On admission his CBC and BMP were unremarkable however he has elevated troponin 0.09-0.125. EKG showing paced rhythm with QTC 754. CTA wa 02/01/2018 Patient generalized weakness feels little better today. Patient knows he is in the hospital but thought he is [place] rather than [place]. He is disoriented to time and person as well. Neurological evaluation is appreciated cardiology consulted for high troponin. Patient does not seem depressed, he denies suicidal ideation. Psychiatric consult is called for patient was taken off lithium for the toxicity last time. Physical therapy evaluation is called a still pending. Objective - Vital Signs Vital signs: Vital Signs Temp 98.8 F 02/01/18 04:00 Pulse 58 L 02/01/18 04:00 Resp 17 02/01/18 04:00 BP 134/62 02/01/18 04:00 Pulse Ox 94 L 02/01/18 04:00 Intake & Output 01/31/18 02/01/18 02/01/18 18:59 06:59 18:59 Intake Total 420 200 Balance 420 200 Weight 105 kg Intake: Intake, IV Titration 240 80 Amount Sodium Chloride 0.9% 1, 240 80 000 ml @ 20 mls/hr IV . [facility]H [facility] Rx#:[id number] Oral 180 120 Other: Voiding Method Diaper Diaper Incontinent Incontinent # Voids 1 1 - Exam -GENERAL: The patient is alert and oriented x1, not in any acute distress. Well developed, well nourished. HEENT: Pupils are round and equally reacting to light. EOMI. No scleral icterus. No conjunctival pallor. Normocephalic, atraumatic. No pharyngeal erythema. No thyromegaly. CARDIOVASCULAR: S1 and S2 present. No murmurs, rubs, or gallops. PULMONARY: Chest is clear to auscultation, no wheezing or crackles. ABDOMEN: Soft, nontender, nondistended, normoactive bowel sounds. No palpable organomegaly. -MUSCULOSKELETAL: No joint swelling or deformity. Generally weak EXTREMITIES: No cyanosis, clubbing, or pedal edema. NEUROLOGICAL: Gross neurological examination did not reveal any focal deficits. SKIN: No rashes. - Labs CBC & Chem 7: 01/31/18 06:15 02/01/18 05:51 Labs: Abnormal Lab Results - Last 24 Hours (Table) 01/30/18 01/31/18 01/31/18 Range/Units 18:27 11:10 16:25 Chloride (98-107) mmol/L BUN (9-20) mg/dL Glucose (74-99) mg/dL POC Glucose (mg/dL) 219 H 200 H (75-99) mg/dL Hemoglobin A1c 8.0 H (4.0-6.0) % 01/31/18 02/01/18 02/01/18 Range/Units 20:53 05:46 05:51 Chloride 109 H (98-107) mmol/L BUN 21 H (9-20) mg/dL Glucose 168 H (74-99) mg/dL POC Glucose (mg/dL) 259 H 186 H (75-99) mg/dL Hemoglobin A1c (4.0-6.0) % Assessment and Plan Assessment: Generalized weakness and deconditioning History of depression Elevated troponin, cardiology consulted history of congestive heart failure, status post permanent pacemakerICD placement. EF 45% History of CVA, old right occipital infarct in the CT of the brain Diabetes mellitus Essential hypertension Hyperlipidemia Possible history of Parkinson disease History of lithium toxicity Diabetic nephropathy, baseline creatinine 1.1-1.3 Plan: This is a pleasant 73 years old male who presents because of generalized weakness. Patient with elevated troponin. Continue with supportive care and will call cardiology consultation. Neurologist has been called from emergency room to evaluate the patient in the view of her history of a old stroke . Labs and medication were resumed. Continue same treatment. Continue with symptomatic treatment. Resume home medication. Monitor lytes and vitals. DVT and GI prophylaxis. Further recommendationsof the clinical course of the patient DVT prophylaxis: Subcutaneous heparin GI Prophylaxis: Pepcid PT/OT: Pending, will call physiatry's consult Prognosis is guarded
[2018-02-01 11:31] LABS: Glucose,Whole Blood 240 mg/dL (75-99)
[2018-02-01] MEDS: NICOTINE 21MG/24HR PATCH TRANSDERM SCH (13:51)
--- NOTE | 2018-02-01 14:23 | P.PN ---
Subjective Progress Note Date: 02/01/18 This is a 73-year-old gentleman who is seen in consultation yesterday by Dr. Corado. He was admitted to the hospital with lithium overdose. His initial presentation here where symptoms of weakness, and unable to open his eyes. Patient has a known history of severe nonischemic cardio myopathy with prior by [facility], follows with a chip unloader in [facility]. He also has prior history of stroke, nicotine dependence, diabetes, hypertension. Let pressure 132/70 with a heart rate in the 80s, 96% on room air. Sodium 140, potassium 4.1, BUN 21, creatinine 1.0. Overall patient feels a little stronger today, still somewhat confused, he does note that he is in the hospital. Objective - Vital Signs Vital signs: Vital Signs Temp 97.3 F L 02/01/18 11:24 Pulse 84 02/01/18 11:24 Resp 18 02/01/18 11:24 BP 133/69 02/01/18 11:24 Pulse Ox 96 02/01/18 11:24 Intake & Output 01/31/18 02/01/18 02/01/18 18:59 06:59 18:59 Intake Total 420 200 780 Balance 420 200 780 Weight 105 kg Intake: Intake, IV Titration 240 80 600 Amount Sodium Chloride 0.9% 1, 240 80 000 ml @ 20 mls/hr IV . Q24H [facility]ENT Rx#:[id number] Sodium Chloride 0.9% 1, 600 000 ml @ 50 mls/hr IV . Q20H VINCENT Rx#:[id number] Oral 180 120 180 Other: Voiding Method Diaper Diaper Diaper Incontinent Incontinent Incontinent # Voids 1 1 1 - Exam PHYSICAL EXAMINATION: GENERAL: 73-year-old gentleman in no acute distress at the time of my examination HEENT: Head is atraumatic, normocephalic. Pupils equal, round. Sclera anicteric. Conjunctiva are clear. Mucous membranes of the mouth are moist. Neck is supple. There is no elevated jugular venous pressure. No Carotid bruit is heard. HEART EXAMINATION: R S1 and S2 systolic murmur is heard. CHEST EXAMINATION: Lungs are clear to auscultation and precussion. No chest wall tenderness is noted on palpation or with deep breathing. ABDOMEN: Soft, nontender. Bowel sounds are heard. No organomegaly noted. EXTREMITIES: 2+ peripheral pulses with no evidence of peripheral edema and no calf tenderness noted. NEUROLOGIC patient is awake, alert and oriented X2. . - Labs CBC & Chem 7: 01/31/18 06:15 02/01/18 05:51 Labs: Abnormal Lab Results - Last 24 Hours (Table) 01/30/18 01/31/18 01/31/18 Range/Units 18:27 16:25 20:53 Chloride (98-107) mmol/L BUN (9-20) mg/dL Glucose (74-99) mg/dL POC Glucose (mg/dL) 200 H 259 H (75-99) mg/dL Hemoglobin A1c 8.0 H (4.0-6.0) % 02/01/18 02/01/18 02/01/18 Range/Units 05:46 05:51 11:26 Chloride 109 H (98-107) mmol/L BUN 21 H (9-20) mg/dL Glucose 168 H (74-99) mg/dL POC Glucose (mg/dL) 186 H 240 H (75-99) mg/dL Hemoglobin A1c (4.0-6.0) % Assessment and Plan Plan: Assessment and plan #1 mental status changes with associated weakness and for this fatigue, likely secondary to lithium withdrawal #2 mild troponin elevation, likely secondary to type II event. #3 status post bi-V AICD for nonischemic cardiomyopathy #4 chronic nicotine dependence #5 hyperlipidemia Plan From cardiology's perspective, we will continue the patient on his current medications. Hemodynamically he is stable. Further recommendations to follow. DNP note has been reviewed, I agree with a documented findings and plan of care. Patient was seen and examined.
[2018-02-01 16:36] LABS: Glucose,Whole Blood 398 mg/dL (75-99)
--- NOTE | 2018-02-01 16:48 | CDI ---
Last Revision, March 2017 Documentation Clarification Form Date: 02/01/2018 4:20:00 PM From: Tracey Horner RN, CCDS Admit Date: 01/30/2018 10:00:00 PM Patient Name: Samir Chan Visit Number: [id number] Discharge Date: ATTENTION: The Clinical Documentation Specialists (CDI) and [facility] Coding Staff appreciate your assistance in clarifying documentation. Please respond to the clarification below the line at the bottom and electronically sign. The CDI & [facility] Coding staff will review the response and follow-up if needed. Please note: Queries are made part of the Legal Health Record. If you have any questions, please contact the author of this message via ITS. Bree Dasilva MD Per your consult on 01/31/18 and progress note on 02/01/18 stated mild troponin elevation likely secondary to type II event in a patient with known history of severe nonischemic cardiomyopathy". Patient history/risk factors: Flanagan toxicity, Nonischemic Cardiomyopathy, Hypertension, Diabetes Mellitus, Heart failure, Current every day smoker Clinical Indicators: Present for evaluation of increased weakness, slightly confused. EKG atrial sensed ventricular paced rhythm. Lab findings: Troponin 0.099, 0.074, 0.125 Chest x-ray: Mild cardiomegaly. No active cardiopulmonary disease. Vital Signs: 143/74 90 16 98.4 % RA Other Clinical Indicators: ECHO January 17: EF 40-45 % 100 % ventricle pacing. No evidence of any acute ischemic event. Treatment: Coreg PO Entresto PO ASA, Lipitor PO In your professional opinion, can you please clarify type 2 event? X Type II Myocardial Infarction Demand Ischemia without MT Other, please specify Unable to determine Please continue to document in your progress notes and discharge summary in order to capture severity of illness and risk of mortality. Include clinical findings that support your diagnosis. MTDD
[2018-02-01] MEDS: metFORMIN 500 MG TAB PO SCH (17:00)
--- NOTE | 2018-02-01 17:08 | CDI ---
Last Revision, March 2017 Documentation Clarification Form Date: 02/01/2018 4:55:48 PM From: Tracey Horner RN,CCDS Admit Date: 01/30/2018 10:00:00 PM Patient Name: Samir Chan Visit Number: [id number] Discharge Date: ATTENTION: The Clinical Documentation Specialists (CDI) and [facility] Coding Staff appreciate your assistance in clarifying documentation. Please respond to the clarification below the line at the bottom and electronically sign. The CDI & [facility] Coding staff will review the response and follow-up if needed. Please note: Queries are made part of the Legal Health Record. If you have any questions, please contact the author of this message via ITS. Edgar Carr MD History/Risk Factors:. Congestive heart failure, CVA, Diabetes mellitus, hypertension, Parkinson disease. Clinical Indicators: Past medical history of congestive heart failure with ongoing treatment is documented in your H/P and progress notes. VS/Pulse OX: 143/74 90 16 98.4 95 % RA BNP: not noted Echocardiogram Results: 01/17/18 EF 40-45 % Chest X Ray: Mild cardiomegaly. No active cardiopulmonary disease. Treatment: Entresto PO Coreg Po ASA Lipitor PO In your professional opinion, can you please clarify the acuity and type of CHF if known? Systolic Heart Failure: Chronic Other, please specify Unable to Determine Please continue to document in your progress notes and discharge summary in order to capture severity of illness and risk of mortality. Include clinical findings that support your diagnosis. ____chronic systolic Heart failure MTDD
[2018-02-01] MEDS: ASPIRIN 81 MG PO SCH (19:39)
[2018-02-01 20:44] LABS: Glucose,Whole Blood 300 mg/dL (75-99)
[2018-02-01] MEDS ORDERED: INSULIN DETEMIR 100 UNIT/ML 10 ML VIAL SQ SCH (21:00)
[2018-02-02 05:46] LABS: Glucose,Whole Blood 219 mg/dL (75-99)
[2018-02-02] MEDS: metFORMIN 500 MG TAB PO SCH ×2 (06:19→16:58)
[2018-02-02] MEDS: CARVEDILOL 6.25 MG TAB PO SCH ×2 (06:19→16:58)
[2018-02-02] MEDS: INSULIN ASPART 100 UNIT/ML 1 ML 10 ML VIAL SQ SCH ×4 (06:52→21:58)
[2018-02-02] MEDS: NICOTINE 21MG/24HR PATCH TRANSDERM SCH (08:29)
[2018-02-02] MEDS: CARBIDOPA-LEVODOPA 25-100 MG 1 EACH TAB PO SCH ×2 (08:29→21:57)
[2018-02-02] MEDS: SACUBITRIL/VALSARTAN 24 MG-26 MG TABLET PO SCH ×2 (08:29→23:09)
[2018-02-02] MEDS: ATORVASTATIN 40 MG TAB PO SCH (08:29)
[2018-02-02] MEDS: HEPARIN SODIUM,PORCINE 5,000 UNIT/ML 1 ML VIAL SQ SCH ×2 (08:29→21:57)
[2018-02-02] MEDS ORDERED: metFORMIN 500 MG TAB PO STA (10:50)
[2018-02-02 11:46] LABS: Glucose,Whole Blood 403 mg/dL (75-99)
--- NOTE | 2018-02-02 13:51 | P.HP ---
Psychiatric H&P - . H&P Date: 02/02/18 History & Physical: The patient is a 73-year-old man who was recently hospitalized with lithium toxicity and chronic renal disease who is admitted to the hospital with is an elevated troponin. History is obtained from the chart and from the patient's was at the bedside. The patient's reports that he was fine until yesterday he seemed to sleep all day. He woke up around 5 PM but very lethargic. Also his urine had a strong smell to it. She states he wouldn't open his eyes yesterday. She reports she's been in and out of the hospital several times this year. He has a history of stroke and she she reports that he was hospitalized about 10 years ago at [place] for this. The patient had a CT of the brain in the emergency room which showed an old chronic occipital infarct. Is unchanged from previous study done earlier this month. The patient denies any complaints. He denies any pain or weakness. He has been taken off lithium since last admission. He does not report have any history of depression. His reports that lithium was given to reduce his hallucinations. is at bedside today and discussed his medical history which cooperates previous hospitalizations. Allergies Allergy/AdvReac Type Severity Reaction Status Date / Time No Known Allergies Allergy Verified 01/31/18 08:46 Laboratory Last Values WBC 7.1 k/uL (3.8-10.6) 01/31/18 06:15 RBC 3.74 m/uL (4.30-5.90) L 01/31/18 06:15 Hgb 11.6 gm/dL (13.0-17.5) L 01/31/18 06:15 Hct 35.5 % (39.0-53.0) L 01/31/18 06:15 MCV 95.0 fL (80.0-100.0) 01/31/18 06:15 MCH 31.2 pg (25.0-35.0) 01/31/18 06:15 MCHC 32.8 g/dL (31.0-37.0) 01/31/18 06:15 RDW 13.7 % (11.5-15.5) 01/31/18 06:15 Plt Count 248 k/uL (150-450) 01/31/18 06:15 Neutrophils % 63 % 01/31/18 06:15 Lymphocytes % 25 % 01/31/18 06:15 Monocytes % 6 % 01/31/18 06:15 Eosinophils % 4 % 01/31/18 06:15 Basophils % 1 % 01/31/18 06:15 Neutrophils # 4.5 k/uL (1.3-7.7) 01/31/18 06:15 Lymphocytes # 1.8 k/uL (1.0-4.8) 01/31/18 06:15 Monocytes # 0.4 k/uL (0-1.0) 01/31/18 06:15 Eosinophils # 0.3 k/uL (0-0.7) 01/31/18 06:15 Basophils # 0.1 k/uL (0-0.2) 01/31/18 06:15 PT 9.5 sec (9.0-12.0) 01/30/18 18:27 INR 1.0 (<1.2) 01/30/18 18:27 APTT 21.5 sec (22.0-30.0) L 01/30/18 18:27 Sodium 140 mmol/L (137-145) 02/01/18 05:51 Potassium 4.1 mmol/L (3.5-5.1) 02/01/18 05:51 Chloride 109 mmol/L (98-107) H 02/01/18 05:51 Carbon Dioxide 25 mmol/L (22-30) 02/01/18 05:51 Anion Gap 6 mmol/L 02/01/18 05:51 BUN 21 mg/dL (9-20) H 02/01/18 05:51 Creatinine 1.00 mg/dL (0.66-1.25) 02/01/18 05:51 Est GFR (CKD-EPI)AfAm 85 (>60 ml/min/1.73 sqM) 02/01/18 05:51 Est GFR (CKD-EPI)NonAf 73 (>60 ml/min/1.73 sqM) 02/01/18 05:51 Glucose 168 mg/dL (74-99) H 02/01/18 05:51 POC Glucose (mg/dL) 240 mg/dL (75-99) H 02/01/18 11:26 POC Glu Marketing Strategy Analyst Chasity Salinas 02/01/18 11:[address] Glu mg/dL 183 01/30/18 18:27 Hemoglobin A1c 8.0 % (4.0-6.0) H 01/30/18 18:27 Plasma Lactic Acid Josias 1.3 mmol/L (0.7-2.0) 01/30/18 18:27 Calcium 9.4 mg/dL (8.4-10.2) 02/01/18 05:51 Total Bilirubin 0.5 mg/dL (0.2-1.3) 01/31/18 06:15 AST 13 U/L (17-59) L 01/31/18 06:15 ALT 25 U/L (21-72) 01/31/18 06:15 Alkaline Phosphatase 85 U/L (38-126) 01/31/18 06:15 Total Creatine Kinase 30 U/L (55-170) L 01/31/18 06:15 CK-MB (CK-2) 1.7 ng/mL (0.0-2.4) 01/31/18 06:15 CK-MB (CK-2) Rel Index 5.7 01/31/18 06:15 Troponin I 0.125 ng/mL (0.000-0.034) H* 01/31/18 06:15 Total Protein 5.9 g/dL (6.3-8.2) L 01/31/18 06:15 Albumin 3.2 g/dL (3.5-5.0) L 01/31/18 06:15 Urine Color Light Yellow 01/30/18 19:09 Urine Appearance Clear (Clear) 01/30/18 19:09 Urine pH 6.5 (5.0-8.0) 01/30/18 19:09 Ur Specific [place] 1.010 (1.001-1.035) 01/30/18 19:09 Urine Protein Trace (Negative) H 01/30/18 19:09 Urine Glucose (UA) Negative (Negative) 01/30/18 19:09 Urine Ketones Negative (Negative) 01/30/18 19:09 Urine Blood Negative (Negative) 01/30/18 19:09 Urine Nitrite Negative (Negative) 01/30/18 19:09 Urine Bilirubin Negative (Negative) 01/30/18 19:09 Urine Urobilinogen <2.0 mg/dL (<2.0) 01/30/18 19:09 Ur Leukocyte Esterase Small (Negative) H 01/30/18 19:09 Urine RBC 1 /hpf (0-5) 01/30/18 19:09 Urine WBC 1 /hpf (0-5) 01/30/18 19:09 Ur Squamous Epith Cells 1 /hpf (0-4) 01/30/18 19:09 Urine Mucus Rare /hpf (None) H 01/30/18 19:09 Assessment and Plan Assessment: Medications and Allergies Home Medications Medication Instructions Recorded Confirmed Type Aspirin 81 mg PO HS 01/11/15 01/31/18 History Atorvastatin [Lipitor] 40 mg PO HS 01/11/15 01/31/18 History Ferrous Sulfate [Iron (65 MG 325 mg PO AC-LUNCH 01/11/15 01/31/18 History Elemental)] Cilostazol [Pletal] 50 mg PO BID 09/08/17 01/31/18 History Armodafinil [Nuvigil] 250 mg PO QAM 12/16/17 01/31/18 History Calcium Carbonate [Calcium] 600 mg PO DAILY 12/16/17 01/31/18 History Cranberry Fruit Concentrate 450 mg PO BID 01/16/18 01/31/18 History [Cranberry] Famotidine [Pepcid] 20 mg PO BID 01/16/18 01/31/18 History Insulin Aspart [NovoLOG See Protocol SQ DIRECTED 01/16/18 01/31/18 History (formulary)] Insulin Detemir [Levemir] 42 unit SQ HS 01/16/18 01/31/18 History Carvedilol [Coreg] 6.25 mg PO BID-W/MEALS #60 tab 01/21/18 01/31/18 Rx Sodium Bicarbonate Tab 650 mg PO BID #60 tab 01/21/18 01/31/18 Rx Carbidopa-Levodopa 25-100 mg 1 tab PO BID 01/31/18 01/31/18 History [Sinemet 25-100] Allergies Allergy/AdvReac Type Severity Reaction Status Date / Time No Known Allergies Allergy Verified 01/31/18 08:46 Past Medical History Past Medical History: Heart Failure, CVA/TIA, Diabetes Mellitus, Hyperlipidemia , Hypertension Additional Past Medical History / Comment(s): Missing ring finger on right hand , Parkinson's History of Any Multi-Drug Resistant Organisms: None Reported Past Surgical History: Pacemaker Additional Past Surgical History / Comment(s): carotid artery surgery Past Anesthesia/Blood Transfusion Reactions: No Reported Reaction Type of Cardiac Device: Permanent Pacemaker Device Placement Date:: 2009 Past Psychological History: No Psychological Hx Reported Smoking Status: Current every day smoker Past Alcohol Use History: None Reported Past Drug Use History: None Reported Musculoskeletal Examination - Abnormal/Involuntary Movements: [none, ] Strength: [weakness:] Muscle Tone: [no impairment Gait: [ in wheelchair, wide-based] Station: [unsteady] Mental Status Examination - this is a pleasant 73-year-old male that was seen with his at bedside. He then on lithium for mood stabilization placed at [facility] in [place] number years ago when they tried after his stroke numerous medications. [place] is not for hallucinations is for mood stability. General Appearance: [ casual, bizarre, appears older than stated age] Speech/Language: [spontaneous, slow, rapid, rambled, mumbling, halting, monotone, expressive, mute, loud, soft, other] Attitude/Behavior: [cooperative, guarded, irritable, withdrawn, indifferent, other] Mood: [euthymic confused Affect: [flat, incongruent, blunted constricted] Orientation: [not time, person, place situation] Thought Content: [wnl, Risk Factors: [not suicidal (ideations, plan), and/or Homicidal (ideations, plan ), other] Perception: [wnl Thought Processes: tangential Concentration/Attention Span: [ impaired] [Per observation and interview with the patient] Recent Memory: [ impaired] [0out of 3 in 3 minutes] Remote Memory: [impaired] [past events, as related history] Intelligence: [below average] [based on history, based on vocabulary, syntax, grammar, and content] Judgement: [poor] [per patient's behavior/history of present illness] Insight: [ poor] [understanding severity of illness/history of present illness] Psychiatric assessment: 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 I do not see the necessity for Nuvigil at this time. 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 Thus the literature suggests stabilizing the dementia with the NMDA receptor an acetylcholinesterase inhibitor with SSRI such as sertraline. Time with Patient: Less than 30
[2018-02-02] MEDS: SODIUM CHLORIDE 0.9% 1,000 ML IV SCH (14:40)
[2018-02-02 15:19] LABS: Glucose,Whole Blood 523 mg/dL (75-99)
[2018-02-02] MEDS ORDERED: INSULIN DETEMIR 100 UNIT/ML 10 ML VIAL SQ STA (15:25)
[2018-02-02] MEDS ORDERED: INSULIN ASPART 100 UNIT/ML 1 ML 10 ML VIAL SQ STA (15:27)
[2018-02-02 16:55] LABS: Glucose,Whole Blood 459 mg/dL (75-99)
[2018-02-02] MEDS ORDERED: metFORMIN 850 MG TAB PO SCH (17:30)
[2018-02-02] MEDS ORDERED: INSULIN DETEMIR 100 UNIT/ML 10 ML VIAL SQ SCH ×2 (21:00→21:30)
[2018-02-02] MEDS ORDERED: DONEPEZIL 5 MG TAB PO SCH (21:45)
[2018-02-02] MEDS ORDERED: SERTRALINE 25 MG TAB PO SCH (21:45)
--- NOTE | 2018-02-02 21:46 | P.PN ---
Subjective This is a pleasant 73 years old male with past medical history of congestive heart failure, CVA, diabetes mellitus, essential hypertension, hyperlipidemia, Parkinson disease. Patient is status post permanent pacemaker. He is a patient of Dr. Mendes. Patient presents because of generalized weakness. Patient has been recently discharged from the hospital about couple weeks ago for lithium toxicity and generalized weakness. At that time he is been evaluated by Dr. Jarrell from physiatry chest and they recommended inpatient rehab On admission his CBC and BMP were unremarkable however he has elevated troponin 0.09-0.125. EKG showing paced rhythm with QTC 754. CTA wa 02/01/2018 Patient generalized weakness feels little better today. Patient knows he is in the hospital but thought he is [place] rather than [place]. He is disoriented to time and person as well. Neurological evaluation is appreciated cardiology consulted for high troponin. Patient does not seem depressed, he denies suicidal ideation. Psychiatric consult is called for patient was taken off lithium for the toxicity last time. Physical therapy evaluation is called a still pending. 02/02/2018 pt is still improving, he knows where he is , but thought it is 11/1991, , he was disoriented to person as well, pt strength is improving but he is forgetful which seems close to his baseline. his glucose is uncontrolled , we increased dose of metformin and insulin, glose in 250+ currently . discussed case with upper caser, most likely insurance company would reject him for TJ. psychiatrist evaluated the pt , he was started on three medication as recommended, pt will be monitored closely. Objective - Vital Signs Vital signs: Vital Signs Temp 97.4 F L 02/02/18 19:00 Pulse 73 02/02/18 19:00 Resp 16 02/02/18 19:00 BP 143/74 02/02/18 19:00 Pulse Ox 96 02/02/18 19:00 Intake & Output 02/02/18 02/02/18 02/03/18 06:59 18:59 06:59 Intake Total 500 500 Balance 500 500 Weight 88.9 kg Intake: IV 20 0.9 20 Intake, IV Titration 500 Amount Sodium Chloride 0.9% 1, 500 000 ml @ 50 mls/hr IV . Q20H [facility]ENT Rx#:[id number] Oral 480 Other: Voiding Method Diaper Incontinent # Voids 3 1 - Exam -GENERAL: The patient is alert and oriented x1, not in any acute distress. Well developed, well nourished. HEENT: Pupils are round and equally reacting to light. EOMI. No scleral icterus. No conjunctival pallor. Normocephalic, atraumatic. No pharyngeal erythema. No thyromegaly. CARDIOVASCULAR: S1 and S2 present. No murmurs, rubs, or gallops. PULMONARY: Chest is clear to auscultation, no wheezing or crackles. ABDOMEN: Soft, nontender, nondistended, normoactive bowel sounds. No palpable organomegaly. -MUSCULOSKELETAL: No joint swelling or deformity. Generally weak EXTREMITIES: No cyanosis, clubbing, or pedal edema. NEUROLOGICAL: Gross neurological examination did not reveal any focal deficits. SKIN: No rashes. - Labs CBC & Chem 7: 01/31/18 06:15 02/01/18 05:51 Labs: Abnormal Lab Results - Last 24 Hours (Table) 02/02/18 02/02/18 02/02/18 Range/Units 05:44 11:44 15:08 POC Glucose (mg/dL) 219 H 403 H 523 H (75-99) mg/dL 02/02/18 Range/Units 16:18 POC Glucose (mg/dL) 459 H (75-99) mg/dL Assessment and Plan Assessment: Generalized weakness and deconditioning History of depression post stroke dementia Elevated troponin, cardiology consulted history of congestive heart failure, status post permanent pacemakerICD placement. EF 45% History of CVA, old right occipital infarct in the CT of the brain Diabetes mellitus Essential hypertension Hyperlipidemia Possible history of Parkinson disease History of lithium toxicity Diabetic nephropathy, baseline creatinine 1.1-1.3 Plan: This is a pleasant 73 years old male who presents because of generalized weakness. Patient with elevated troponin. Continue with supportive care and will call cardiology consultation. Neurologist has been called from emergency room to evaluate the patient in the view of her history of a old stroke . Labs and medication were resumed. Continue same treatment. Continue with symptomatic treatment. Resume home medication. Monitor lytes and vitals. DVT and GI prophylaxis. Further recommendationsof the clinical course of the patient DVT prophylaxis: Subcutaneous heparin GI Prophylaxis: Pepcid PT/OT: Pending, will call physiatry's consult Prognosis is guarded
[2018-02-02 21:47] LABS: Glucose,Whole Blood 368 mg/dL (75-99)
[2018-02-02] MEDS: ASPIRIN 81 MG PO SCH (21:57)
[2018-02-02] MEDS ORDERED: MEMANTINE 5 MG TAB PO SCH (22:00)
[2018-02-03] MEDS: SODIUM CHLORIDE 0.9% 1,000 ML IV SCH ×2 (06:27→06:53)
[2018-02-03 06:31] LABS: Glucose,Whole Blood 310 mg/dL (75-99)
[2018-02-03] MEDS: metFORMIN 500 MG TAB PO SCH (06:52)
[2018-02-03] MEDS: CARVEDILOL 6.25 MG TAB PO SCH (06:52)
[2018-02-03] MEDS: INSULIN ASPART 100 UNIT/ML 1 ML 10 ML VIAL SQ SCH ×2 (06:53→12:35)
[2018-02-03 07:24] VITALS: RESP 16; TEMP 97
[2018-02-03] MEDS ORDERED: INSULIN DETEMIR 100 UNIT/ML 10 ML VIAL SQ SCH ×2 (08:00→09:00)
[2018-02-03] MEDS: SACUBITRIL/VALSARTAN 24 MG-26 MG TABLET PO SCH (08:39)
[2018-02-03] MEDS: CARBIDOPA-LEVODOPA 25-100 MG 1 EACH TAB PO SCH (08:39)
[2018-02-03] MEDS: NICOTINE 21MG/24HR PATCH TRANSDERM SCH (08:39)
[2018-02-03] MEDS: ATORVASTATIN 40 MG TAB PO SCH (08:39)
[2018-02-03] MEDS: HEPARIN SODIUM,PORCINE 5,000 UNIT/ML 1 ML VIAL SQ SCH (08:39)
[2018-02-03 11:36] VITALS: BP 109/72; PULSE 74
[2018-02-03 11:43] LABS: Glucose,Whole Blood 249 mg/dL (75-99)
[2018-02-03 14:01] LABS: Glucose,Whole Blood 285 mg/dL (75-99)
--- NOTE | 2018-02-04 00:50 | P.DS ---
Providers Date of admission: 01/30/18 22:00 Attending physician: Ronna Novak Consults: 01/30/18 21:26 Consult Physician Routine Consulting Provider: [facility] Consult Reason/Comments: Elevated trop; Weakness Do you want consulting provider notified?: Yes 01/31/18 08:10 Consult Physician Routine Consulting Provider: Tae Bangura Consult Reason/Comments: weakness, positive CT scan Do you want consulting provider notified?: Yes 01/31/18 10:33 Consult Physician Routine Consulting Provider: Robby Hernandez Consult Reason/Comments: weakenss Do you want consulting provider notified?: Yes 02/01/18 10:38 Consult Physician Routine Consulting Provider: George Ashford Consult Reason/Comments: Depression, Librium recently DC Do you want consulting provider notified?: Already Contacted Primary care physician: Aria Mendes [facility] Course: This is a pleasant 73 years old male with past medical history of congestive heart failure, CVA, diabetes mellitus, essential hypertension, hyperlipidemia, Parkinson disease. Patient is status post permanent pacemaker. He is a patient of Dr. Mendes. Patient presents because of generalized weakness. Patient has been recently discharged from the hospital about couple weeks ago for lithium toxicity and generalized weakness. At that time he is been evaluated by Dr. Jarrell from physiatry chest and they recommended inpatient rehab , however patient was rejected for insurance reasons. Patient thought to have elements of metabolic encephalopathy which is multifactorial on the top of his most atrophic dementia, including residual lithium, depression, dehydration, and uncontrolled diabetes. Patient received treatment including IV fluids and spleen, supportive measurements and he showed interval improvement after the day of discharge his as. He has resolved. Patient returned to his baseline although he has some elements of memory problems with some disorientation mostly related to his dementia On admission his CBC and BMP were unremarkable however he has elevated troponin 0.09-0.125. EKG showing paced rhythm with QTC 754. Patient has been evaluated by automatic bandsaw tender. And they felt that his troponin leak is secondary to type II event. And the recommended to continue with conservative treatment. On the day of discharge patient showed significant interval improvement in his strength. Patient is forgetful however that looks close to his baseline. Physiatry is recommended subacute rehab. eligibility worker/medical case worker evaluated the case. however insurance company rejected the case. pt is going to be discharged home with [facility]. Psychiatrist: post stroke syndrome with dementia and anxiety. and started him on namenda, aricept and sertraline. His diabetes medication has been adjusted from Levemir 42 units daily at bedtime to 20 units twice a day plus metformin 1000 mg twice a day added. sugar is better controlled On the day of discharge patient denies chest pain. No dyspnea. No change in urine or bowel habits. No nausea vomiting. No fever. Patient has been cleared by cardiology for discharge. Problems and management plan was discussed with the patient and he verbalized understanding and acceptance. at bed side. Patient is found stable and can be discharged home however he needs follow-up as an outpatient. Gen: patient is a AAOx3, no distress CVS: S1-S2, RRR, no murmur Lungs: B/L CTA, no wheezing Abdomen: soft, no distention, no tenderness, positive bowel sounds Extremity: no leg edema or induration This patient more than 35 minutes Plan - Discharge Summary Discharge Rx Participant: No New Discharge Prescriptions: New Donepezil [Aricept] 5 mg PO HS #30 tab Insulin Aspart [NovoLOG (formulary)] 0 unit SQ ACHS vial Insulin Detemir [Levemir] 20 unit SQ DAILY 30 Days #1 vial Insulin Detemir [Levemir] 20 unit SQ HS 30 Days #1 vial Memantine [Namenda] 5 mg PO HS #30 tab metFORMIN HCL [Glucophage] 1,000 mg PO BID-W/MEALS #120 tab Nicotine 21Mg/24Hr Patch [Habitrol] 1 patch TRANSDERM DAILY #30 patch Sacubitril/Valsartan [Entresto 24 mg-26 mg Tablet] 1 each PO BID #30 tablet Sertraline [Zoloft] 25 mg PO HS #30 tab Continue Ferrous Sulfate [Iron (65 MG Elemental)] 325 mg PO AC-LUNCH Aspirin 81 mg PO HS Atorvastatin [Lipitor] 40 mg PO HS Cilostazol [Pletal] 50 mg PO BID Armodafinil [Nuvigil] 250 mg PO QAM Calcium Carbonate [Calcium] 600 mg PO DAILY Cranberry Fruit Concentrate [Cranberry] 450 mg PO BID Famotidine [Pepcid] 20 mg PO BID Insulin Aspart [NovoLOG (formulary)] See Protocol SQ DIRECTED Carvedilol [Coreg] 6.25 mg PO BID-W/MEALS #60 tab Sodium Bicarbonate Tab 650 mg PO BID #60 tab Carbidopa-Levodopa 25-100 mg [Sinemet 25-100 mg] 1 tab PO BID Discontinued Insulin Detemir [Levemir] 42 unit SQ HS Discharge Medication List Aspirin 81 mg PO HS 01/11/15 [History] Atorvastatin [Lipitor] 40 mg PO HS 01/11/15 [History] Ferrous Sulfate [Iron (65 MG Elemental)] 325 mg PO AC-LUNCH 01/11/15 [History] Cilostazol [Pletal] 50 mg PO BID 09/08/17 [History] Armodafinil [Nuvigil] 250 mg PO QAM 12/16/17 [History] Calcium Carbonate [Calcium] 600 mg PO DAILY 12/16/17 [History] Cranberry Fruit Concentrate [Cranberry] 450 mg PO BID 01/16/18 [History] Famotidine [Pepcid] 20 mg PO BID 01/16/18 [History] Insulin Aspart [NovoLOG (formulary)] See Protocol SQ DIRECTED 01/16/18 [ History] Carvedilol [Coreg] 6.25 mg PO BID-W/MEALS #60 tab 01/21/18 [Rx] Sodium Bicarbonate Tab 650 mg PO BID #60 tab 01/21/18 [Rx] Carbidopa-Levodopa 25-100 mg [Sinemet 25-100 mg] 1 tab PO BID 01/31/18 [History] Donepezil [Aricept] 5 mg PO HS #30 tab 02/03/18 [Rx] Insulin Aspart [NovoLOG (formulary)] 0 unit SQ ACHS vial 02/03/18 [Rx] Insulin Detemir [Levemir] 20 unit SQ DAILY 30 Days #1 vial 02/03/18 [Rx] Insulin Detemir [Levemir] 20 unit SQ HS 30 Days #1 vial 02/03/18 [Rx] Memantine [Namenda] 5 mg PO HS #30 tab 02/03/18 [Rx] Nicotine 21Mg/24Hr Patch [Habitrol] 1 patch TRANSDERM DAILY #30 patch 02/03/18 [ Rx] Sacubitril/Valsartan [Entresto 24 mg-26 mg Tablet] 1 each PO BID #30 tablet 04/22 [Rx] Sertraline [Zoloft] 25 mg PO HS #30 tab 02/03/18 [Rx] metFORMIN HCL [Glucophage] 1,000 mg PO BID-W/MEALS #120 tab 02/03/18 [Rx] Follow up Appointment(s)/Referral(s): [facility], [NON-STAFF] - Aria Mendes DO [Primary Care Provider] - 02/07/18 10:20 am (psych referral) Cierra Bangura MD [STAFF PHYSICIAN] - 02/22/18 2:30 pm Brannon Greenwood MD [REFERRING] - 1 Week (Medical Researcher- please call and schedule follow up appointment during normal business hours. ) Patient Instructions/Handouts: Heart Healthy Diet (DC), Weakness (DC), Stroke ( DC) Activity/Diet/Wound Care/Special Instructions: Cardiac diet Activity: Limited till you see your doctor Discharge Disposition: HOME WITH HOME HEALTH SERVICES
--- NOTE | 2018-02-07 12:02 | CDI ---
Documentation Clarification Form Date: 02/07/18 From: Sara Nava Phone: If questions, call Kim Middleton @ Admit Date: 01/30/2018 10:00:00 PM Patient Name: Samir Chan Visit Number: [id number] Discharge Date:02/03 ATTENTION: The Clinical Documentation Specialists (CDI) and [facility] Coding Staff appreciate your assistance in clarifying documentation. Please respond to the clarification below the line at the bottom and electronically sign. The CDI & [facility] Coding staff will review the response and follow-up if needed. Please note: Queries are made part of the Legal Health Record. If you have any questions, please contact the author of this message via ITS. Edgar Carr MD The patient has uncontrolled diabetes mellitus. According to PN 02/02, glucose is uncontrolled. DS states uncontrolled diabetes as a cause of the patient's metabolic encephalopathy. 02/02/18 02/02/18 02/02/18 Range/Units 05:44 11:44 15:08 POC Glucose (mg/dL) 219 H 403 H 523 H Treatment: diabetes medication has been adjusted from Levemir 42 units daily at bedtime to 20 units twice a day plus metformin 1000 mg twice a day added In order to capture the severity of Illness and necessary documentation specificity, uncontrolled diabetes must be specified as due to hyperglycemia or hypoglycemia. Please clarify: Uncontrolled Diabetes with hyperglycemia Uncontrolled Diabetes with hypoglycemia , Other, please specify Unable to Determine ____Uncontrolled Diabetes with hyperglycemia MTDD
--- NOTE | 2018-02-10 11:55 | CONS ---
CONSULTATION ADDENDUM: The patient's mild troponin elevation representing a type 2 myocardial infarction. MMODL / IJN: [id number] /
== END 2018-02-03 16:26 | disposition home health service (06) | DRG 637 ==
LOC: EC 18:09 → 3SCARD 22:00
PROVIDERS: ADMIT Hospitalist; ATTEND Hospitalist
DX: E11.65 Type 2 diabetes mellitus with hyperglycemia (principal); G93.41 Metabolic encephalopathy; I21.A1 Myocardial infarction type 2; I13.0 Hypertensive heart and chronic kidney disease with heart failure and stage 1 through stage 4 chronic kidney disease, or unspecified chronic kidney disease; I50.22 Chronic systolic (congestive) heart failure; T43.595A Adverse effect of other antipsychotics and neuroleptics, initial encounter; E11.69 Type 2 diabetes mellitus with other specified complication; F01.50 Vascular dementia, unspecified severity, without behavioral disturbance, psychotic disturbance, mood disturbance, and anxiety; F32.9 Major depressive disorder, single episode, unspecified; E86.0 Dehydration; I69.311 Memory deficit following cerebral infarction; F41.9 Anxiety disorder, unspecified; Z79.4 Long term (current) use of insulin; N18.9 Chronic kidney disease, unspecified; E78.5 Hyperlipidemia, unspecified; G20 Parkinson's disease; E11.22 Type 2 diabetes mellitus with diabetic chronic kidney disease; Z89.021 Acquired absence of right finger(s); F17.210 Nicotine dependence, cigarettes, uncomplicated; Z80.9 Family history of malignant neoplasm, unspecified; Z79.82 Long term (current) use of aspirin; Z79.899 Other long term (current) drug therapy; H57.10 Ocular pain, unspecified eye; Z95.810 Presence of automatic (implantable) cardiac defibrillator; I25.2 Old myocardial infarction; Z87.440 Personal history of urinary (tract) infections
CPT/HCPCS: 36415; 70450; 71046; 80048; 80053; 81001; 82550; 82553; 83036; 83605; 84484; 85025; 85610; 85730; 93005; 99285

== ENCOUNTER 2018-11-07 22:09 | Inpatient (IN) | payer MEDICARE ==
[2018-11-07] MEDS ORDERED: SODIUM CHLORIDE 0.9% 1,000 ML IV ONE (22:20)
[2018-11-07] MEDS ORDERED: SODIUM CHLORIDE 0.9% 500 ML 500 ML IV STA (22:21)
--- NOTE | 2018-11-07 22:25 | ED ---
Altered Mental Status HPI - General Stated Complaint: Hypotension Time Seen by Provider: 11/07/18 22:10 Source: family, EMS, RN notes reviewed, old records reviewed Mode of arrival: EMS - History of Present Illness Initial Comments: This is a 73-year-old male history of multiple medical issues including acute kidney injury sepsis dehydration CHF history of CVA and SD about 12 years ago and chronic ventral hernia who after eating dinner tonight around 1700 hrs. became weak that feeling well with episodes of nausea vomiting. No diarrhea reported. His was going to attempt to bring him in by private vehicle with a negative the standard with weakness. He also seems like he was less responsive than usual. Is brought in by EMS he was found initially have a blood pressure of 77/38 this did improve somewhat after a 400 mL bolus his glucose was 113. No recent changes in medications per his he did have an episode like this last year when he was still on lithium. He is no longer and lithium. He is very lethargic no focal deficits reported. MD Complaint: altered mental status, decreased responsiveness, weakness - Related Data Home Medications Medication Instructions Recorded Confirmed Aspirin 81 mg PO DAILY 01/11/15 11/07/18 Atorvastatin [Lipitor] 40 mg PO HS 01/11/15 11/07/18 Ferrous Sulfate [Iron (65 MG 325 mg PO DAILY 01/11/15 11/07/18 Elemental)] Cilostazol [Pletal] 50 mg PO BID 09/08/17 11/07/18 Armodafinil [Nuvigil] 250 mg PO DAILY 12/16/17 11/07/18 Famotidine [Pepcid] 20 mg PO DAILY 01/16/18 11/07/18 INSULIN ASPART (NovoLOG) [NovoLOG See Protocol SQ ACHS 01/16/18 11/07/18 (formulary)] Carbidopa-Levodopa 25-100 mg 1 tab PO BID 01/31/18 11/07/18 [Sinemet 25-100 mg] Carvedilol [Coreg] 6.25 mg PO AC-BID 11/07/18 11/07/18 Furosemide [Lasix] 40 mg PO DAILY PRN 11/07/18 11/07/18 Insulin Detemir (Levemir) [Levemir] 22 unit SQ BID 11/07/18 11/07/18 Memantine [Namenda] 10 mg PO DAILY 11/07/18 11/07/18 Rivaroxaban [Xarelto] 20 mg PO DAILY 11/07/18 11/07/18 Sacubitril/Valsartan [Entresto 24 1 tab PO BID 11/07/18 11/07/18 mg-26 mg Tablet] metFORMIN HCL [Glucophage] 1,000 mg PO AC-BID 11/07/18 11/07/18 Previous Rx's Medication Instructions Recorded Donepezil [Aricept] 5 mg PO HS #30 tab 02/03/18 Sertraline [Zoloft] 25 mg PO HS #30 tab 02/03/18 Allergies Allergy/AdvReac Type Severity Reaction Status Date / Time No Known Allergies Allergy Verified 11/07/18 22:46 Review of Systems ROS Statement: Those systems with pertinent positive or pertinent negative responses have been documented in the HPI. ROS Other: All systems not noted in ROS Statement are negative. Past Medical History Past Medical History: Heart Failure, CVA/TIA, Diabetes Mellitus, Hyperlipidemia, Hypertension Additional Past Medical History / Comment(s): Missing ring finger on right hand, Parkinson's History of Any Multi-Drug Resistant Organisms: None Reported Past Surgical History: Pacemaker Additional Past Surgical History / Comment(s): carotid artery surgery Past Anesthesia/Blood Transfusion Reactions: No Reported Reaction Type of Cardiac Device: Permanent Pacemaker Device Placement Date:: 2009 Past Psychological History: No Psychological Hx Reported Smoking Status: Current every day smoker Past Alcohol Use History: None Reported Past Drug Use History: None Reported - Past Family History Mother Family Medical History: Cancer Brother(s) Family Medical History: Cancer General Exam - General Exam Comments Initial Comments: Is a well-developed well-nourished awake lethargic male who states he just does not feel well defined it anymore than that Limitations: physical limitation General appearance: alert, in no apparent distress Head exam: Present: atraumatic, normocephalic, normal inspection Eye exam: Present: normal appearance, PERRL, EOMI. Absent: scleral icterus, conjunctival injection, periorbital swelling ENT exam: Present: mucous membranes dry Neck exam: Present: normal inspection, other (No stridor JVD or bruits full range of motion noted). Absent: tenderness, meningismus, lymphadenopathy Respiratory exam: Present: decreased breath sounds. Absent: respiratory distress, wheezes, rales, rhonchi, stridor Cardiovascular Exam: Present: regular rate, normal rhythm, normal heart sounds. Absent: systolic murmur, diastolic murmur, rubs, gallop, clicks GI/Abdominal exam: Present: soft, normal bowel sounds, hernia, other (Ventral hernia that reduces easily. The patient did complain some pain in the abdomen was elicited on palpation). Absent: distended, tenderness, guarding, rebound, rigid, bruit, pulsatile mass Rectal exam: Present: deferred Extremities exam: Present: normal inspection, full ROM, normal capillary refill. Absent: tenderness, pedal edema, joint swelling, calf tenderness Back exam: Present: normal inspection Neurological exam: Present: alert, oriented X3, CN II-XII intact Psychiatric exam: Present: normal affect, normal mood Skin exam: Present: warm, dry, intact, normal color. Absent: rash Course Vital Signs 11/07/18 11/07/18 11/07/18 22:15 23:04 23:26 Temperature 100.1 F H Pulse Rate 64 62 61 Respiratory 18 18 18 Rate Blood Pressure 80/34 71/35 81/22 O2 Sat by Pulse 95 97 96 Oximetry 11/08/18 11/08/18 11/08/18 00:02 00:04 00:23 Temperature 99.9 F H Pulse Rate 64 66 Respiratory 20 18 Rate Blood Pressure 70/41 75/32 O2 Sat by Pulse 95 97 Oximetry 11/08/18 00:52 Temperature Pulse Rate 66 Respiratory 18 Rate Blood Pressure 98/41 O2 Sat by Pulse 96 Oximetry - Reevaluation(s) Reevaluation #1: 11/08/18 01:13 I did reevaluate patient on multiple occasions he is more responsive after IV hydration blood pressure is improved he is responding to fluids Medical Decision Making - Medical Decision Making I did reevaluate patient on multiple occasions did discuss findings with patient and his she believes he is responding better. Fevers of unknown origin he does demonstrate evidence of acute kidney injury hypotensive episode dehydration - Lab Data Result diagrams: 11/07/18 22:35 11/07/18 22:35 Lab Results 11/07/18 11/07/18 11/07/18 Range/Units 22:35 22:35 22:35 WBC 7.8 (3.8-10.6) k/uL RBC 3.75 L (4.30-5.90) m/uL Hgb 11.6 L (13.0-17.5) gm/dL Hct 34.9 L (39.0-53.0) % MCV 93.1 (80.0-100.0) fL MCH 30.9 (25.0-35.0) pg MCHC 33.2 (31.0-37.0) g/dL RDW 13.8 (11.5-15.5) % Plt Count 164 (150-450) k/uL Neutrophils % (Manual) 57 % Band Neutrophils % 33 % Lymphocytes % (Manual) 5 % Monocytes % (Manual) 3 % Eosinophils % (Manual) 2 % Neutrophils # (Manual) 7.00 (1.3-7.7) k/uL Lymphocytes # (Manual) 0.39 L (1.0-4.8) k/uL Monocytes # (Manual) 0.23 (0-1.0) k/uL Eosinophils # (Manual) 0.16 (0-0.7) k/uL Nucleated RBCs 0 (0-0) /100 WBC Manual Slide Review Performed Toxic Granulation Present Sodium 138 (137-145) mmol/L Potassium 5.8 H (3.5-5.1) mmol/L Chloride 107 (98-107) mmol/L Carbon Dioxide 20 L (22-30) mmol/L Anion Gap 11 mmol/L BUN 75 H (9-20) mg/dL Creatinine 2.43 H (0.66-1.25) mg/dL Est GFR (CKD-EPI)AfAm 29 (>60 ml/min/1.73 sqM) Est GFR (CKD-EPI)NonAf 25 (>60 ml/min/1.73 sqM) Glucose 99 (74-99) mg/dL POC Glucose (mg/dL) (75-99) mg/dL POC Glu Instrumentation Technician ID Plasma Lactic Acid Josias 1.8 (0.7-2.0) mmol/L Calcium 9.0 (8.4-10.2) mg/dL Magnesium 1.9 (1.6-2.3) mg/dL Total Bilirubin 0.4 (0.2-1.3) mg/dL AST 32 (17-59) U/L ALT 27 (21-72) U/L Alkaline Phosphatase 57 (38-126) U/L Ammonia <9 (<30) umol/L Creatine Kinase 45 L (55-170) U/L Troponin I (0.000-0.034) ng/mL Total Protein 6.5 (6.3-8.2) g/dL Albumin 3.7 (3.5-5.0) g/dL Lipase 42 (23-300) U/L Urine Color Urine Appearance (Clear) Urine pH (5.0-8.0) Ur Specific Republic (1.001-1.035) Urine Protein (Negative) Urine Glucose (UA) (Negative) Urine Ketones (Negative) Urine Blood (Negative) Urine Nitrite (Negative) Urine Bilirubin (Negative) Urine Urobilinogen (<2.0) mg/dL Ur Leukocyte Esterase (Negative) Urine Opiates Screen (NotDetected) Ur Oxycodone Screen (NotDetected) Urine Methadone Screen (NotDetected) Ur Propoxyphene Screen (NotDetected) Ur Barbiturates Screen (NotDetected) U Tricyclic Antidepress (NotDetected) Ur Phencyclidine Scrn (NotDetected) Ur Amphetamines Screen (NotDetected) U Methamphetamines Scrn (NotDetected) U Benzodiazepines Scrn (NotDetected) Urine Cocaine Screen (NotDetected) U Marijuana (THC) Screen (NotDetected) 11/07/18 11/07/18 11/08/18 Range/Units 22:35 23:39 00:20 WBC (3.8-10.6) k/uL RBC (4.30-5.90) m/uL Hgb (13.0-17.5) gm/dL Hct (39.0-53.0) % MCV (80.0-100.0) fL MCH (25.0-35.0) pg MCHC (31.0-37.0) g/dL RDW (11.5-15.5) % Plt Count (150-450) k/uL Neutrophils % (Manual) % Band Neutrophils % % Lymphocytes % (Manual) % Monocytes % (Manual) % Eosinophils % (Manual) % Neutrophils # (Manual) (1.3-7.7) k/uL Lymphocytes # (Manual) (1.0-4.8) k/uL Monocytes # (Manual) (0-1.0) k/uL Eosinophils # (Manual) (0-0.7) k/uL Nucleated RBCs (0-0) /100 WBC Manual Slide Review Toxic Granulation Sodium (137-145) mmol/L Potassium (3.5-5.1) mmol/L Chloride (98-107) mmol/L Carbon Dioxide (22-30) mmol/L Anion Gap mmol/L BUN (9-20) mg/dL Creatinine (0.66-1.25) mg/dL Est GFR (CKD-EPI)AfAm (>60 ml/min/1.73 sqM) Est GFR (CKD-EPI)NonAf (>60 ml/min/1.73 sqM) Glucose (74-99) mg/dL POC Glucose (mg/dL) 143 H (75-99) mg/dL POC Glu Instrumentation Technician ID Martita Tabares Plasma Lactic Acid Josias (0.7-2.0) mmol/L Calcium (8.4-10.2) mg/dL Magnesium (1.6-2.3) mg/dL Total Bilirubin (0.2-1.3) mg/dL AST (17-59) U/L ALT (21-72) U/L Alkaline Phosphatase (38-126) U/L Ammonia (<30) umol/L Creatine Kinase (55-170) U/L Troponin I 0.022 (0.000-0.034) ng/mL Total Protein (6.3-8.2) g/dL Albumin (3.5-5.0) g/dL Lipase (23-300) U/L Urine Color Yellow Urine Appearance Clear (Clear) Urine pH 5.0 (5.0-8.0) Ur Specific Republic 1.014 (1.001-1.035) Urine Protein Trace H (Negative) Urine Glucose (UA) Negative (Negative) Urine Ketones Negative (Negative) Urine Blood Negative (Negative) Urine Nitrite Negative (Negative) Urine Bilirubin Negative (Negative) Urine Urobilinogen <2.0 (<2.0) mg/dL Ur Leukocyte Esterase Negative (Negative) Urine Opiates Screen Not Detected (NotDetected) Ur Oxycodone Screen Not Detected (NotDetected) Urine Methadone Screen Not Detected (NotDetected) Ur Propoxyphene Screen Not Detected (NotDetected) Ur Barbiturates Screen Not Detected (NotDetected) U Tricyclic Antidepress Not Detected (NotDetected) Ur Phencyclidine Scrn Detected H (NotDetected) Ur Amphetamines Screen Not Detected (NotDetected) U Methamphetamines Scrn Not Detected (NotDetected) U Benzodiazepines Scrn Not Detected (NotDetected) Urine Cocaine Screen Not Detected (NotDetected) U Marijuana (THC) Screen Not Detected (NotDetected) - EKG Data -: EKG Interpreted by Me (Pacemaker rhythm a 63 ME interval 100 QRS duration 186 QT since QTC 536/548) - Radiology Data Radiology results: report reviewed (I did review the imaging and report no acute findings), image reviewed Critical Care Time Critical Care Time: Yes Critical Care Time: 40 minutes of critical care time which includes initial presentation with history physical labs x-rays discussed with paramedics regarding the events multiple reevaluation the patient review of old charting discussed with the patient family regarding findings discussion with admitting physician admission orders and documentation of the above Disposition Clinical Impression: Acute kidney injury, Dehydration, Hypotension, Febrile illness, acute, Acute gastritis Disposition: ADMITTED IP TO THIS HOSP Condition: Fair Referrals: None,Stated [REFERRING] - 1-2 days
[2018-11-07 23:04] LABS: HCT 34.9 % (39.0-53.0); HGB 11.6 gm/dL (13.0-17.5); MCH 30.9 pg (25.0-35.0); MCHC 33.2 g/dL (31.0-37.0); MCV 93.1 fL (80.0-100.0); Mean Platelet Volume 7.8; Platelet Count 164 k/uL (150-450); RBC 3.75 m/uL (4.30-5.90); RDW 13.8 % (11.5-15.5); WBC 7.8 k/uL (3.8-10.6)
[2018-11-07 23:05] LABS: Ammonia <9 umol/L (<30); Lactic Acid, Venous 1.8 mmol/L (0.7-2.0)
[2018-11-07 23:07] LABS: Albumin 3.7 g/dL (3.5-5.0); Potassium 5.8 mmol/L (3.5-5.1); Total Bilirubin 0.4 mg/dL (0.2-1.3); Total Protein 6.5 g/dL (6.3-8.2)
[2018-11-07 23:08] LABS: Magnesium 1.9 mg/dL (1.6-2.3)
[2018-11-07] MEDS ORDERED: SODIUM CHLORIDE 0.9% 500 ML 500 ML IV ONE (23:26)
[2018-11-07 23:40] LABS: Glucose,Whole Blood 143 mg/dL (75-99)
[2018-11-07 23:54] LABS: Band Neutrophils % 33 %; Eosinophils # (M) 0.16 k/uL (0-0.7); Lymphocytes # (M) 0.39 k/uL (1.0-4.8); Monocytes # (M) 0.23 k/uL (0-1.0); Neutrophils % (M) 57 %; Nucleated Red Blood Cells 0 /100 WBC (0-0); Total Cells Counted 200
[2018-11-07 23:55] LABS: Toxic Granulation Present
--- NOTE | 2018-11-08 00:35 | XR ---
EXAM: XR Chest, 2 Views CLINICAL HISTORY: altered mental status TECHNIQUE: Frontal and lateral views of the chest. COMPARISON: 01/30/2018 FINDINGS: Lungs: Hypoventilatory lungs. Hypoventilatory lungs. No acute cardiopulmonary process. Pleural space: Unremarkable. No pneumothorax. Heart: Stable cardiomediastinal silhouette. Mediastinum: See above. Bones/joints: No acute osseous abnormality. Tubes, lines and devices: Telemetry leads overlie the patient. Left chest wall cardiac pacemaker. IMPRESSION: No acute findings.
--- NOTE | 2018-11-08 00:35 | XR ---
EXAM: XR Abdomen, 1 View CLINICAL HISTORY: Pain TECHNIQUE: Frontal supine view of the abdomen/pelvis. COMPARISON: No relevant prior studies available. FINDINGS: Intraperitoneal space: No pneumatosis or pneumoperitoneum. Gastrointestinal tract: Gas filled loops of nondilated large and small bowel. Bones/joints: No acute fracture or malalignment. Vasculature: Vascular calcifications. IMPRESSION: Nonobstructive bowel gas pattern. No pneumatosis or pneumoperitoneum.
[2018-11-08 00:38] LABS: Appearance,Urine Clear (Clear); Bilirubin,Urine Negative (Negative); Blood,Urine Negative (Negative); Color,Urine Yellow; Glucose,Urine (UA) Negative (Negative); Ketones,Urine Negative (Negative); Leukocyte Esterase,Urine Negative (Negative); Nitrite,Urine Negative (Negative); Protein,Urine Trace (Negative); Specific Gravity,Urine 1.014 (1.001-1.035); Urobilinogen,Urine <2.0 mg/dL (<2.0)
--- NOTE | 2018-11-08 00:38 | CT ---
EXAM: CT Head Without Intravenous Contrast CLINICAL HISTORY: altered mental status TECHNIQUE: Axial computed tomography images of the head/brain without intravenous contrast. CTDI is 0.085, 0.085, 49.1 mGy and DLP is 1260.4 mGy-cm. This CT exam was performed using one or more of the following dose reduction techniques: automated exposure control, adjustment of the mA and/or kV according to patient size, and/or use of iterative reconstruction technique. COMPARISON: No relevant prior studies available. FINDINGS: Brain: No acute intracranial hemorrhage, acute territorial infarct, or significant mass effect. Nonspecific areas of hypoattenuation in the periventricular white matter likely represent the sequela of chronic small vessel ischemic disease. Similar encephalomalacia in the right posterior cerebral artery territory. Ventricles: Ventricular and sulcal prominence commensurate with the patient's age. Bones/joints: Unremarkable. No acute fracture. Soft tissues: Unremarkable. Sinuses: Unremarkable. Mastoid air cells: Unremarkable. IMPRESSION: No acute intracranial abnormality.
[2018-11-08] MEDS ORDERED: SODIUM CHLORIDE 0.9% 1,000 ML IV STA (00:45)
[2018-11-08] MEDS ORDERED: cefTRIAXone IN SWFI 1,000 MG/10 ML SYRINGE IVP STA (00:48)
[2018-11-08 00:59] LABS: Cocaine Screen,Urine Not Detected (NotDetected); Phencyclidine Screen,Urine Detected (NotDetected)
[2018-11-08 01:00] LABS: Amphetamine Screen,Urine Not Detected (NotDetected); Barbiturate Screen,Urine Not Detected (NotDetected); Benzodiazepines Screen,Urine Not Detected (NotDetected); Methadone Screen, Urine Not Detected (NotDetected); Opiate Screen,Urine Not Detected (NotDetected); Oxycodone Screen, Urine Not Detected (NotDetected); Tricyclic Antidepressant,Urine Not Detected (NotDetected); Urn Cannabinoid Scrn Not Detected (NotDetected)
[2018-11-08] MEDS ORDERED: ACETAMINOPHEN TAB 325 MG TAB PO PRN (01:15)
[2018-11-08] MEDS ORDERED: NALOXONE 0.4 MG/ML 1 ML VIAL IV PRN (01:15)
[2018-11-08] MEDS ORDERED: ONDANSETRON 4 MG/2 ML VIAL IVP PRN (01:15)
[2018-11-08] MEDS ORDERED: FUROSEMIDE 40 MG TAB PO PRN (01:18)
[2018-11-08] MEDS: SODIUM CHLORIDE 0.9% 1,000 ML IV SCH ×3 (04:38→16:21)
[2018-11-08 04:54] LABS: Glucose,Whole Blood 161 mg/dL (75-99)
[2018-11-08] MEDS ORDERED: metFORMIN 500 MG TAB PO SCH (07:30)
[2018-11-08] MEDS ORDERED: PANTOPRAZOLE 40 MG/10 ML VIAL IV SCH (09:00)
[2018-11-08] MEDS ORDERED: RIVAROXABAN 20 MG TAB PO SCH (09:00)
[2018-11-08] MEDS ORDERED: INSULIN DETEMIR (LEVEMIR) 100 UNIT/ML SYR SQ SCH (09:00)
[2018-11-08] MEDS: CARVEDILOL 6.25 MG TAB PO SCH ×2 (09:26→16:59)
[2018-11-08] MEDS: ARMODAFINIL 250 MG PO SCH (09:26)
[2018-11-08] MEDS: SACUBITRIL/VALSARTAN 24 MG-26 MG TABLET PO SCH ×2 (09:27→21:11)
[2018-11-08 09:34] LABS: Glucose,Whole Blood 152 mg/dL (75-99)
[2018-11-08] MEDS: CARBIDOPA-LEVODOPA 25-100 MG 1 EACH TAB PO SCH ×2 (09:39→21:11)
[2018-11-08] MEDS: ASPIRIN 81 MG PO SCH (09:39)
[2018-11-08] MEDS: CILOSTAZOL 100 MG TAB PO SCH ×2 (09:39→21:11)
[2018-11-08] MEDS: MEMANTINE 10 MG TAB PO SCH (09:40)
[2018-11-08] MEDS: FAMOTIDINE 20 MG TAB PO SCH (09:40)
[2018-11-08] MEDS: FERROUS SULFATE 325 MG TAB PO SCH (09:40)
--- NOTE | 2018-11-08 10:07 | P.NPCON ---
History of Present Illness - Reason for Consult acute renal failure - History of Present Illness Reason for consultation: Acute kidney injury on chronic kidney disease History of present illness: Patient is a 72-year-old male seen in renal consultation for acute kidney injury on chronic kidney disease. Patient has chronic kidney disease stage III with baseline creatinine the range of 1.1-1.3 secondary to diabetic kidney disease. Patient presented to the hospital with generalized weakness. Patient states he's been having nausea and multiple episodes of vomiting the last few days. He denies any significant diarrhea. He denies use of nonsteroidals. Patient has history of systolic CHF with ejection fraction of 40-45%. Patient was hypotensive with systolic blood pressure in the 70s on admission. He did receive 2 L bolus of normal saline and is currently maintained on normal saline at 100 mL an hour. He has been voiding. Blood pressure is better. Creatinine was 2.43 on admission. Labs from today are pending at this time. He did have a temperature of 100.1F on admission as well. UA is quite benign. No evidence of fluid overload on chest x-ray. Vital signs are stable. General: The patient appeared well nourished and normally developed. HEENT: Head exam is unremarkable. Neck is without jugular venous distension. LUNGS: Lungs are clear to auscultation and percussion. Breath sounds decreased. HEART: Rate and Rhythm are regular. First and second heart sounds normal. No murmurs, rubs or gallops. ABDOMEN: Abdominal exam reveals normal bowel sounds. Non-tender and non-distend ed. No evidence of peritonitis. EXTREMITITES: No clubbing, cyanosis, or edema. Past Medical History Past Medical History: Atrial Fibrillation, Heart Failure, COPD, CVA/TIA, Dementia, Diabetes Mellitus, GERD/Reflux, Hyperlipidemia, Hypertension, Myocardial Infarction ([place]), Sleep Apnea/CPAP/BIPAP, Vascular Disorder Additional Past Medical History / Comment(s): IDDM type II, 2006 CVA-more sleepy since, seizures ruled out by [facility], DION-did not tolerate mask, poor circulation to legs, poor balance, UTI. 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 Mother Family Medical History: Cancer Additional Family Medical History / Comment(s): Pt/spouse do not recall type of cancer. Brother(s) Family Medical History: Cancer Medications and Allergies Home Medications Medication Instructions Recorded Confirmed Type Aspirin 81 mg PO DAILY 01/11/15 11/07/18 History Atorvastatin [Lipitor] 40 mg PO HS 01/11/15 11/07/18 History Ferrous Sulfate [Iron (65 MG 325 mg PO DAILY 01/11/15 11/07/18 History Elemental)] Cilostazol [Pletal] 50 mg PO BID 09/08/17 11/07/18 History Armodafinil [Nuvigil] 250 mg PO DAILY 12/16/17 11/07/18 History Famotidine [Pepcid] 20 mg PO DAILY 01/16/18 11/07/18 History INSULIN ASPART (NovoLOG) [NovoLOG See Protocol SQ ACHS 01/16/18 11/07/18 History (formulary)] Carbidopa-Levodopa 25-100 mg 1 tab PO BID 01/31/18 11/07/18 History [Sinemet 25-100 mg] Donepezil [Aricept] 5 mg PO HS #30 tab 02/03/18 11/07/18 Rx Sertraline [Zoloft] 25 mg PO HS #30 tab 02/03/18 11/07/18 Rx Carvedilol [Coreg] 6.25 mg PO AC-BID 11/07/18 11/07/18 History Furosemide [Lasix] 40 mg PO DAILY PRN 11/07/18 11/07/18 History Insulin Detemir (Levemir) [Levemir] 22 unit SQ BID 11/07/18 11/07/18 History Memantine [Namenda] 10 mg PO DAILY 11/07/18 11/07/18 History Rivaroxaban [Xarelto] 20 mg PO DAILY 11/07/18 11/07/18 History Sacubitril/Valsartan [Entresto 24 1 tab PO BID 11/07/18 11/07/18 History mg-26 mg Tablet] metFORMIN HCL [Glucophage] 1,000 mg PO AC-BID 11/07/18 11/07/18 History Allergies Allergy/AdvReac Type Severity Reaction Status Date / Time No Known Allergies Allergy Verified 11/07/18 22:46 Physical Exam Vitals: Vital Signs Temp Pulse Resp BP Pulse Ox 11/08/18 07:30 60 17 110/40 11/08/18 07:00 60 16 100/41 11/08/18 06:30 60 14 90/39 11/08/18 06:00 60 20 77/36 11/08/18 05:30 60 16 107/46 11/08/18 05:00 98.3 F 65 24 104/37 11/08/18 04:30 98.5 F 65 17 113/46 96 11/08/18 03:30 66 88/60 89 L 11/08/18 03:00 68 96/74 91 L 11/08/18 02:52 99.0 F 70 16 96/76 93 L 11/08/18 02:50 87 L 11/08/18 02:30 68 82/48 96 11/08/18 02:00 67 18 91/43 94 L 11/08/18 01:40 67 18 91/43 94 L 11/08/18 01:30 67 96/41 11/08/18 01:00 67 98/41 100 11/08/18 00:52 66 18 98/41 96 11/08/18 00:30 65 75/32 81 L 11/08/18 00:25 66 75/32 97 11/08/18 00:23 66 18 75/32 97 11/08/18 00:04 99.9 F H 11/08/18 00:02 64 20 70/41 95 11/07/18 23:26 61 18 81/22 96 11/07/18 23:04 62 18 71/35 97 11/07/18 22:15 100.1 F H 64 18 80/34 95 Intake and Output 11/07/18 11/08/18 11/08/18 22:59 06:59 14:59 Intake Total 100 100 Balance 100 100 Intake: IV 100 100 Sodium Chloride 0.9% 1, 100 100 000 ml @ 100 mls/hr IV . Q10H ONE Rx#:[id number] Other: # Voids 0 0 Weight 95.708 kg Results - Lab Results Most recent lab results Calcium 9.0 mg/dL (8.4-10.2) 11/07/18 22:35 Magnesium 1.9 mg/dL (1.6-2.3) 11/07/18 22:35 11/07/18 22:35 11/07/18 22:35 Assessment and Plan Plan: Assessment: 1. Acute kidney injury mostly prerenal secondary to intravascular volume depletion from vomiting and further worsened with the use of entresto and Lasix. Creatinine 2.43 on admission. UA is quite benign. 2. Chronic kidney disease stage III. Baseline creatinine in the range of 1.1- 1.3 secondary to diabetic kidney disease. 3. Insulin-dependent diabetes mellitus. 4. Hyperkalemia secondary to acute kidney injury, metabolic acidosis and use of entresto. 5. Metabolic acidosis secondary to acute kidney injury. 6. Hypotension secondary to intravascular volume depletion. Better with IV fluids. Plan: I will decrease the rate of normal saline to 75 mL an hour. Hold antihypertensives, including entresto for now. Encourage oral intake. Continue to monitor renal function and urine output. Follow-up morning labs. Thank you for the consultation. I will continue to follow the patient with you during his hospital stay.
[2018-11-08 10:47] LABS: Calcium 7.9 mg/dL (8.4-10.2); Magnesium 1.9 mg/dL (1.6-2.3); Potassium 5.1 mmol/L (3.5-5.1)
[2018-11-08 10:48] LABS: Partial Thromboplastin Time 25.7 sec (22.0-30.0); Prothrombin Time 10.6 sec (9.0-12.0)
--- NOTE | 2018-11-08 11:55 | P.HPIM ---
History of Present Illness 73-year-old pleasant gentleman was brought in because of generalized weakness found to have fever found to have acute renal failure. Patient was having nausea vomiting and diarrhea has been going on for few days. Patient doesn't hooper ve any pneumonia on the chest x-ray patient doesn't have any dysuria patient is comparing of cough with a thick sputum production because of which I'll start him on doxycycline. Patient did he is not impressive for UTI chest x-ray is not impressive for pneumonia. Diarrhea resolved as per the patient although it is a poor historian doesn't provide me with history. Patient baseline creatinine murali und 1.2-1.3-, now went up to 2.43. Patient does take Lasix and lisinopril at home patient does have congestive heart failure ejection fraction of 40-45%. Patient also has hyperkalemia at this time because of lisinopril and acute renal failure. Review of Systems REVIEW OF SYSTEMS: CONSTITUTIONAL: No fever, no malaise, no fatigue. HEENT: No recent visual problems or hearing problems. Denied any sore throat. CARDIOVASCULAR: No chest pain, orthopnea, PND, no palpitations, no syncope. PULMONARY: No shortness of breath, no cough, no hemoptysis. GASTROINTESTINAL: no abdominal pain. NEUROLOGICAL: No headaches, no weakness, no numbness. HEMATOLOGICAL: Denies any bleeding or petechiae. GENITOURINARY: Denies any burning micturition, frequency, or urgency. MUSCULOSKELETAL/RHEUMATOLOGICAL: Denies any joint pain, swelling, or any muscle pain. ENDOCRINE: Denies any polyuria or polydipsia. The rest of the 14-point review of systems is negative. Past Medical History Past Medical History: Atrial Fibrillation, Heart Failure, COPD, CVA/TIA, Dementia, Diabetes Mellitus, GERD/Reflux, Hyperlipidemia, Hypertension, Myocar dial Infarction ([place]), Sleep Apnea/CPAP/BIPAP, Vascular Disorder Additional Past Medical History / Comment(s): IDDM type II, 2006 CVA-more sleepy since, seizures ruled out by [facility], DION-did not tolerate mask, poor circulation to legs, poor balance, UTI. 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 Mother Family Medical History: Cancer Additional Family Medical History / Comment(s): Pt/spouse do not recall type of cancer. Brother(s) Family Medical History: Cancer Medications and Allergies Home Medications Medication Instructions Recorded Confirmed Type Aspirin 81 mg PO DAILY 01/11/15 11/07/18 History Atorvastatin [Lipitor] 40 mg PO HS 01/11/15 11/07/18 History Ferrous Sulfate [Iron (65 MG 325 mg PO DAILY 01/11/15 11/07/18 History Elemental)] Cilostazol [Pletal] 50 mg PO BID 09/08/17 11/07/18 History Armodafinil [Nuvigil] 250 mg PO DAILY 12/16/17 11/07/18 History Famotidine [Pepcid] 20 mg PO DAILY 01/16/18 11/07/18 History INSULIN ASPART (NovoLOG) [NovoLOG See Protocol SQ ACHS 01/16/18 11/07/18 History (formulary)] Carbidopa-Levodopa 25-100 mg 1 tab PO BID 01/31/18 11/07/18 History [Sinemet 25-100 mg] Donepezil [Aricept] 5 mg PO HS #30 tab 02/03/18 11/07/18 Rx Sertraline [Zoloft] 25 mg PO HS #30 tab 02/03/18 11/07/18 Rx Carvedilol [Coreg] 6.25 mg PO AC-BID 11/07/18 11/07/18 History Furosemide [Lasix] 40 mg PO DAILY PRN 11/07/18 11/07/18 History Insulin Detemir (Levemir) [Levemir] 22 unit SQ BID 11/07/18 11/07/18 History Memantine [Namenda] 10 mg PO DAILY 11/07/18 11/07/18 History Rivaroxaban [Xarelto] 20 mg PO DAILY 11/07/18 11/07/18 History Sacubitril/Valsartan [Entresto 24 1 tab PO BID 11/07/18 11/07/18 History mg-26 mg Tablet] metFORMIN HCL [Glucophage] 1,000 mg PO AC-BID 11/07/18 11/07/18 History Allergies Allergy/AdvReac Type Severity Reaction Status Date / Time No Known Allergies Allergy Verified 11/07/18 22:46 Physical Exam Vitals: Vital Signs Temp Pulse Resp BP Pulse Ox 11/08/18 10:00 60 20 94/40 11/08/18 09:30 60 23 84/41 11/08/18 09:00 60 10 L 97/42 11/08/18 08:30 60 20 76/38 11/08/18 08:00 98.1 F 60 19 93/45 11/08/18 07:30 60 17 110/40 11/08/18 07:00 60 16 100/41 11/08/18 06:30 60 14 90/39 11/08/18 06:00 60 20 77/36 11/08/18 05:30 60 16 107/46 11/08/18 05:00 98.3 F 65 24 104/37 11/08/18 04:30 98.5 F 65 17 113/46 96 11/08/18 03:30 66 88/60 89 L 11/08/18 03:00 68 96/74 91 L 11/08/18 02:52 99.0 F 70 16 96/76 93 L 11/08/18 02:50 87 L 11/08/18 02:30 68 82/48 96 11/08/18 02:00 67 18 91/43 94 L 11/08/18 01:40 67 18 91/43 94 L 11/08/18 01:30 67 96/41 11/08/18 01:00 67 98/41 100 11/08/18 00:52 66 18 98/41 96 11/08/18 00:30 65 75/32 81 L 11/08/18 00:25 66 75/32 97 11/08/18 00:23 66 18 75/32 97 11/08/18 00:04 99.9 F H 11/08/18 00:02 64 20 70/41 95 11/07/18 23:26 61 18 81/22 96 11/07/18 23:04 62 18 71/35 97 11/07/18 22:15 100.1 F H 64 18 80/34 95 Intake and Output 11/07/18 11/08/18 11/08/18 22:59 06:59 14:59 Intake Total 100 100 Balance 100 100 Intake: IV 100 100 Sodium Chloride 0.9% 1, 100 100 000 ml @ 100 mls/hr IV . Q10H ONE Rx#:[id number] Other: # Voids 0 0 Weight 95.708 kg PHYSICAL EXAMINATION: GENERAL: The patient is alert and oriented x3, not in any acute distress. Well developed, well nourished. HEENT: Pupils are round and equally reacting to light. EOMI. No scleral icterus. No conjunctival pallor. Normocephalic, atraumatic. No pharyngeal erythema. No thyromegaly. CARDIOVASCULAR: S1 and S2 present. No murmurs, rubs, or gallops. PULMONARY: Chest is clear to auscultation, no wheezing or crackles. ABDOMEN: Soft, nontender, nondistended, normoactive bowel sounds. No palpable organomegaly. MUSCULOSKELETAL: No joint swelling or deformity. EXTREMITIES: No cyanosis, clubbing, or pedal edema. NEUROLOGICAL: Gross neurological examination did not reveal any focal deficits. SKIN: No rashes. Results CBC & Chem 7: 11/07/18 22:35 11/08/18 10:26 Labs: Abnormal Lab Results - Last 24 Hours (Table) 11/07/18 11/07/18 11/07/18 Range/Units 22:35 22:35 23:39 RBC 3.75 L (4.30-5.90) m/uL Hgb 11.6 L (13.0-17.5) gm/dL Hct 34.9 L (39.0-53.0) % Lymphocytes # (Manual) 0.39 L (1.0-4.8) k/uL Potassium 5.8 H (3.5-5.1) mmol/L Chloride (98-107) mmol/L Carbon Dioxide 20 L (22-30) mmol/L BUN 75 H (9-20) mg/dL Creatinine 2.43 H (0.66-1.25) mg/dL Glucose (74-99) mg/dL POC Glucose (mg/dL) 143 H (75-99) mg/dL Calcium (8.4-10.2) mg/dL Creatine Kinase 45 L (55-170) U/L Urine Protein (Negative) Ur Phencyclidine Scrn (NotDetected) 11/08/18 11/08/18 11/08/18 Range/Units 00:20 04:52 09:32 RBC (4.30-5.90) m/uL Hgb (13.0-17.5) gm/dL Hct (39.0-53.0) % Lymphocytes # (Manual) (1.0-4.8) k/uL Potassium (3.5-5.1) mmol/L Chloride (98-107) mmol/L Carbon Dioxide (22-30) mmol/L BUN (9-20) mg/dL Creatinine (0.66-1.25) mg/dL Glucose (74-99) mg/dL POC Glucose (mg/dL) 161 H 152 H (75-99) mg/dL Calcium (8.4-10.2) mg/dL Creatine Kinase (55-170) U/L Urine Protein Trace H (Negative) Ur Phencyclidine Scrn Detected H (NotDetected) 11/08/18 Range/Units 10:26 RBC (4.30-5.90) m/uL Hgb (13.0-17.5) gm/dL Hct (39.0-53.0) % Lymphocytes # (Manual) (1.0-4.8) k/uL Potassium (3.5-5.1) mmol/L Chloride 111 H (98-107) mmol/L Carbon Dioxide (22-30) mmol/L BUN 71 H (9-20) mg/dL Creatinine 2.43 H (0.66-1.25) mg/dL Glucose 136 H (74-99) mg/dL POC Glucose (mg/dL) (75-99) mg/dL Calcium 7.9 L (8.4-10.2) mg/dL Creatine Kinase (55-170) U/L Urine Protein (Negative) Ur Phencyclidine Scrn (NotDetected) Thrombosis Risk Factor Assmnt - Choose All That Apply Any of the Below Risk Factors Present?: Yes Each Factor Represents 1 point: Obesity (BMI >25) Other Risk Factors: Yes Each Risk Factor Represents 3 Points: Age 75 years or older Other congenital or acquired thrombophilia - If yes, enter type in comment: No Thrombosis Risk Factor Assessment Total Risk Factor Score: 4 Thrombosis Risk Factor Assessment Level: Moderate Risk Assessment and Plan Plan: -Acute renal failure: Pale azotemia from intravascular volume depletion dehydration from diarrhea Lasix and lisinopril. Patient was started on IV fluids with the Lasix and lisinopril will be held -diarrhea with the body aches and fever: Secondary to possible viral gastroenteritis and medics will be held and patient will be continued on IV fluids and if patient still has diarrhea today patient will obtain C. diff testing 7 hypokalemia secondary to lisinopril and acute renal failure. -chronic kidney disease stage III secondary to possible diabetic nephropathy Congestive heart failure chronic systolic dysfunction ejection fraction of 40- 45% patient is hypervolemic at this time receiving IV fluids -Possible bronchitis for which we'll use doxycycline -Atrial fibrillation presently rate controlled patient will be resumed on his anti-correlation [place]-history of CVA or TIA in the past -COPD -Hyperlipidemia -Hypertension 7 coronary artery disease with [place] in the past and previous stents in the past -Sleep apnea uses CPAP machine -Peripheral vascular disease -Depression. Patient will be resumed on appropriate home medications for above mentioned chronic medical problems.
[2018-11-08] MEDS: DOXYCYCLINE 100 MG CAP PO SCH ×2 (13:37→21:10)
[2018-11-08] MEDS: RIVAROXABAN 15 MG TAB PO SCH (13:38)
[2018-11-08 17:15] LABS: Glucose,Whole Blood 46 mg/dL (75-99)
[2018-11-08 17:33] LABS: Glucose,Whole Blood 49 mg/dL (75-99)
[2018-11-08 18:04] LABS: Glucose,Whole Blood 69 mg/dL (75-99)
[2018-11-08 18:08] LABS: Glucose,Whole Blood 104 mg/dL (75-99)
[2018-11-08] MEDS: NICOTINE 21MG/24HR PATCH TRANSDERM SCH (21:10)
[2018-11-08] MEDS: SERTRALINE 25 MG TAB PO SCH (21:10)
[2018-11-08] MEDS: DONEPEZIL 5 MG TAB PO SCH (21:11)
[2018-11-08] MEDS: ATORVASTATIN 40 MG TAB PO SCH (21:11)
[2018-11-08 21:30] LABS: Glucose,Whole Blood 125 mg/dL (75-99)
[2018-11-08 23:40] LABS: Glucose,Whole Blood 139 mg/dL (75-99)
[2018-11-08] MEDS: INSULIN DETEMIR (LEVEMIR) 100 UNIT/ML SYR SQ SCH (23:40)
[2018-11-09] MEDS: SODIUM CHLORIDE 0.9% 1,000 ML IV SCH ×2 (06:53→17:20)
[2018-11-09 07:09] LABS: Glucose,Whole Blood 81 mg/dL (75-99)
[2018-11-09] MEDS: CARVEDILOL 6.25 MG TAB PO SCH ×2 (07:13→17:19)
[2018-11-09] MEDS: INSULIN DETEMIR (LEVEMIR) 100 UNIT/ML SYR SQ SCH ×2 (07:13→20:46)
[2018-11-09] MEDS: ARMODAFINIL 250 MG PO SCH (07:13)
[2018-11-09] MEDS: SACUBITRIL/VALSARTAN 24 MG-26 MG TABLET PO SCH ×2 (08:31→20:46)
[2018-11-09] MEDS: CILOSTAZOL 100 MG TAB PO SCH ×2 (08:33→20:45)
[2018-11-09] MEDS: FERROUS SULFATE 325 MG TAB PO SCH (08:33)
[2018-11-09] MEDS: RIVAROXABAN 15 MG TAB PO SCH (08:33)
[2018-11-09] MEDS: ASPIRIN 81 MG PO SCH (08:33)
[2018-11-09] MEDS: CARBIDOPA-LEVODOPA 25-100 MG 1 EACH TAB PO SCH ×2 (08:33→20:45)
[2018-11-09] MEDS: MEMANTINE 10 MG TAB PO SCH (08:33)
[2018-11-09] MEDS: NICOTINE 21MG/24HR PATCH TRANSDERM SCH (08:33)
[2018-11-09] MEDS: FAMOTIDINE 20 MG TAB PO SCH (08:33)
[2018-11-09] MEDS: DOXYCYCLINE 100 MG CAP PO SCH ×2 (08:34→20:45)
[2018-11-09 09:23] LABS: Albumin 2.8 g/dL (3.5-5.0); Calcium 8.1 mg/dL (8.4-10.2); Potassium 4.5 mmol/L (3.5-5.1); Total Bilirubin 0.3 mg/dL (0.2-1.3); Total Protein 5.2 g/dL (6.3-8.2)
[2018-11-09 10:02] LABS: Basophils % (A) 1 %; Eosinophils # (A) 0.5 k/uL (0-0.7); Eosinophils % (A) 6 %; HCT 28.9 % (39.0-53.0); Lymphocytes # (A) 1.5 k/uL (1.0-4.8); Lymphocytes % (A) 19 %; MCH 31.7 pg (25.0-35.0); MCHC 32.9 g/dL (31.0-37.0); MCV 96.3 fL (80.0-100.0); Mean Platelet Volume 7.2; Monocytes # (A) 0.4 k/uL (0-1.0); Monocytes % (A) 5 %; Neutrophils # (A) 5.2 k/uL (1.3-7.7); Neutrophils % (A) 68 %; Platelet Count 173 k/uL (150-450); RDW 14.2 % (11.5-15.5); WBC 7.7 k/uL (3.8-10.6)
[2018-11-09 10:14] LABS: HGB 9.5 gm/dL (13.0-17.5)
--- NOTE | 2018-11-09 10:59 | P.PN ---
Subjective Patient is seen in follow-up for acute kidney injury on chronic kidney disease. Patient has chronic kidney disease stage III Baseline creatinine in the range of 1.1-1.3 secondary to diabetic kidney disease. Creatinine was 2.43 on admission and is down to 1.94 today. Patient's currently maintained on IV fluids. Oral intake is improving. No vomiting or diarrhea. Admits to good urine output. Vital signs are stable. General: The patient appeared well nourished and normally developed. HEENT: Head exam is unremarkable. Neck is without jugular venous distension. LUNGS: Lungs are clear to auscultation and percussion. Breath sounds decreased. HEART: Rate and Rhythm are regular. First and second heart sounds normal. No murmurs, rubs or gallops. ABDOMEN: Abdominal exam reveals normal bowel sounds. Non-tender and non- distended. No evidence of peritonitis. EXTREMITITES: No clubbing, cyanosis, or edema. Objective - Vital Signs Vital signs: Vital Signs Temp 97.9 F 11/09/18 05:00 Pulse 61 11/09/18 05:00 Resp 20 11/09/18 05:00 BP 99/47 11/09/18 05:00 Pulse Ox 95 11/09/18 05:00 Intake & Output 11/08/18 11/09/18 11/09/18 18:59 06:59 18:59 Intake Total 340 300 Balance 340 300 Intake: IV 100 Sodium Chloride 0.9% 1, 100 000 ml @ 100 mls/hr IV . Q10H ONE Rx#:[id number] Oral 240 300 Other: Voiding Method Diaper Incontinent # Voids 1 2 - Labs CBC & Chem 7: 11/09/18 08:35 11/09/18 08:35 Labs: Abnormal Lab Results - Last 24 Hours (Table) 11/08/18 11/08/18 11/08/18 Range/Units 17:04 17:22 17:44 RBC (4.30-5.90) m/uL Hgb (13.0-17.5) gm/dL Hct (39.0-53.0) % Chloride (98-107) mmol/L Carbon Dioxide (22-30) mmol/L BUN (9-20) mg/dL Creatinine (0.66-1.25) mg/dL Glucose (74-99) mg/dL POC Glucose (mg/dL) 46 L 49 L 69 L (75-99) mg/dL Calcium (8.4-10.2) mg/dL ALT (21-72) U/L Total Protein (6.3-8.2) g/dL Albumin (3.5-5.0) g/dL 11/08/18 11/08/18 11/08/18 Range/Units 18:05 21:10 23:36 RBC (4.30-5.90) m/uL Hgb (13.0-17.5) gm/dL Hct (39.0-53.0) % Chloride (98-107) mmol/L Carbon Dioxide (22-30) mmol/L BUN (9-20) mg/dL Creatinine (0.66-1.25) mg/dL Glucose (74-99) mg/dL POC Glucose (mg/dL) 104 H 125 H 139 H (75-99) mg/dL Calcium (8.4-10.2) mg/dL ALT (21-72) U/L Total Protein (6.3-8.2) g/dL Albumin (3.5-5.0) g/dL 11/09/18 11/09/18 Range/Units 08:35 08:35 RBC 3.00 L (4.30-5.90) m/uL Hgb 9.5 L D (13.0-17.5) gm/dL Hct 28.9 L (39.0-53.0) % Chloride 114 H (98-107) mmol/L Carbon Dioxide 21 L (22-30) mmol/L BUN 60 H (9-20) mg/dL Creatinine 1.94 H (0.66-1.25) mg/dL Glucose 149 H (74-99) mg/dL POC Glucose (mg/dL) (75-99) mg/dL Calcium 8.1 L (8.4-10.2) mg/dL ALT 20 L (21-72) U/L Total Protein 5.2 L (6.3-8.2) g/dL Albumin 2.8 L (3.5-5.0) g/dL Microbiology - Last 24 Hours (Table) 11/07/18 23:15 Blood Culture - Preliminary Blood No Growth after 24 hours Assessment and Plan Plan: Assessment: 1. Acute kidney injury mostly prerenal secondary to intravascular volume depletion from vomiting and further worsened with the use of entresto and Lasix. Creatinine 2.43 on admission and is down to 1.94 today. UA is quite benign. 2. Chronic kidney disease stage III. Baseline creatinine in the range of 1.1- 1.3 secondary to diabetic kidney disease. 3. Insulin-dependent diabetes mellitus. 4. Hyperkalemia secondary to acute kidney injury, metabolic acidosis and use of entresto. 5. Metabolic acidosis secondary to acute kidney injury. Stable. 6. Hypotension secondary to intravascular volume depletion. Better with IV fluids. 7. Anemia of chronic kidney disease. Rule out deficiency. Plan: Maintain normal saline at 75 mL an hour. Hold antihypertensives, including entresto for now. Encourage oral intake. Continue to monitor renal function and urine output. Repeat electrolytes in the morning. Check iron studies.
[2018-11-09 11:44] LABS: Glucose,Whole Blood 237 mg/dL (75-99)
[2018-11-09 17:16] LABS: Glucose,Whole Blood 346 mg/dL (75-99)
[2018-11-09] MEDS: metFORMIN 500 MG TAB PO SCH (17:19)
[2018-11-09 17:42] LABS: Iron Saturation 20.47 (15.00-50.00)
--- NOTE | 2018-11-09 19:32 | PN ---
PROGRESS NOTE DATE OF SERVICE: 11/09/2018 This 73-year-old gentleman who was admitted with acute renal failure also had nausea, vomiting, diarrhea also. No chest pain. No palpitations. No fever. The creatinine is 1.94 at this time. EXAM: Alert and oriented x3. The pulse is 70. Blood pressure 156/74, respirations 16, temperature 97.7, pulse ox 98% on room air. HEENT: Conjunctivae normal. NECK: No JVD. CARDIOVASCULAR: S1, S2 muffled. RESPIRATIONS: Breath sounds diminished in the bases. A few scattered rhonchi. ABDOMEN: Soft. NERVOUS SYSTEM: No focal deficits. LABS: WBC 7.7, hemoglobin 9.5, and creatinine is 1.94. ASSESSMENT: 1. Acute renal failure possibly prerenal azotemia from diarrhea. 2. Acute gastroenteritis possibly viral. 3. Hypokalemia. 4. Chronic kidney stage 3. 5. History of congestive heart failure. 6. History of bronchitis. 7. History atrial fibrillation. 8. History of chronic obstructive pulmonary disease. 9. Hypertension. 10.Hyperlipidemia. 11.History of myocardial infarction. 12.History of sleep apnea. 13.History of peripheral vascular disease. 14.History of depression. RECOMMENDATIONS AND DISCUSSION: I recommend to continue current medications, management and symptomatic treatment. Monitor closely. Repeat labs tomorrow. The patient is still on IV fluids 75 mL/hour. We will continue to monitor. Continue the rest of medications. Nephrology has been consulted. Further recommendations to follow. MMODL / REMYN: [id number] /
[2018-11-09 20:06] LABS: Glucose,Whole Blood 393 mg/dL (75-99)
[2018-11-09] MEDS: DONEPEZIL 5 MG TAB PO SCH (20:45)
[2018-11-09] MEDS: SERTRALINE 25 MG TAB PO SCH (20:45)
[2018-11-09] MEDS: ATORVASTATIN 40 MG TAB PO SCH (20:45)
[2018-11-10 02:05] LABS: Glucose,Whole Blood 296 mg/dL (75-99)
[2018-11-10 07:04] LABS: Glucose,Whole Blood 132 mg/dL (75-99)
[2018-11-10] MEDS: ARMODAFINIL 250 MG PO SCH (07:32)
[2018-11-10] MEDS: NICOTINE 21MG/24HR PATCH TRANSDERM SCH (07:34)
[2018-11-10] MEDS: MEMANTINE 10 MG TAB PO SCH (07:34)
[2018-11-10] MEDS: ASPIRIN 81 MG PO SCH (07:34)
[2018-11-10] MEDS: CARBIDOPA-LEVODOPA 25-100 MG 1 EACH TAB PO SCH (07:34)
[2018-11-10] MEDS: CILOSTAZOL 100 MG TAB PO SCH (07:34)
[2018-11-10] MEDS: CARVEDILOL 6.25 MG TAB PO SCH (07:34)
[2018-11-10] MEDS: DOXYCYCLINE 100 MG CAP PO SCH (07:34)
[2018-11-10] MEDS: FERROUS SULFATE 325 MG TAB PO SCH (07:34)
[2018-11-10] MEDS: INSULIN DETEMIR (LEVEMIR) 100 UNIT/ML SYR SQ SCH (07:34)
[2018-11-10] MEDS: SODIUM CHLORIDE 0.9% 1,000 ML IV SCH (07:35)
[2018-11-10] MEDS: SACUBITRIL/VALSARTAN 24 MG-26 MG TABLET PO SCH (07:35)
[2018-11-10] MEDS: RIVAROXABAN 15 MG TAB PO SCH (07:35)
[2018-11-10] MEDS: FAMOTIDINE 20 MG TAB PO SCH (07:35)
[2018-11-10] MEDS: metFORMIN 500 MG TAB PO SCH (07:35)
[2018-11-10] MEDS: INSULIN ASPART (NovoLOG) 100 UNIT/ML VIAL SQ SCH ×2 (07:36→12:11)
[2018-11-10 09:56] LABS: Calcium 8.6 mg/dL (8.4-10.2); Magnesium 1.7 mg/dL (1.6-2.3)
--- NOTE | 2018-11-10 10:32 | P.PN ---
Subjective Patient is seen in follow-up for acute kidney injury on chronic kidney disease. Patient has chronic kidney disease stage III Baseline creatinine in the range of 1.1-1.3 secondary to diabetic kidney disease. Creatinine was 2.43 on admission and is down to 1.63 today. Patient's currently maintained on IV fluids. Oral intake is improving. No vomiting or diarrhea. Admits to good urine output. Vital signs are stable. General: The patient appeared well nourished and normally developed. HEENT: Head exam is unremarkable. Neck is without jugular venous distension. LUNGS: Lungs are clear to auscultation and percussion. Breath sounds decreased. HEART: Rate and Rhythm are regular. First and second heart sounds normal. No murmurs, rubs or gallops. ABDOMEN: Abdominal exam reveals normal bowel sounds. Non-tender and non- distended. No evidence of peritonitis. EXTREMITITES: No clubbing, cyanosis, or edema. Objective - Vital Signs Vital signs: Vital Signs Temp 97.8 F 11/10/18 04:50 Pulse 67 11/10/18 04:50 Resp 22 11/10/18 04:50 BP 140/62 11/10/18 04:50 Pulse Ox 95 11/10/18 04:50 Intake & Output 11/09/18 11/10/18 11/10/18 18:59 06:59 18:59 Intake Total 600 540 Output Total 1400 Balance 600 -860 Intake: IV 600 Sodium Chloride 0.9% 1, 600 000 ml @ 75 mls/hr IV . [id number] VINCENT Rx#:[id number] Oral 540 Output: Urine 1400 Other: # Voids 8 - Labs CBC & Chem 7: 11/09/18 08:35 11/10/18 09:04 Labs: Abnormal Lab Results - Last 24 Hours (Table) 11/09/18 11/09/18 11/09/18 Range/Units 08:35 11:35 17:05 Chloride (98-107) mmol/L Carbon Dioxide (22-30) mmol/L BUN (9-20) mg/dL Creatinine (0.66-1.25) mg/dL Glucose (74-99) mg/dL POC Glucose (mg/dL) 237 H 346 H (75-99) mg/dL Iron 44 L (65-175) ug/dL TIBC 215 L (228-460) ug/dL Ferritin 519.9 H (22.0-322.0) ng/mL 11/09/18 11/10/18 11/10/18 Range/Units 20:04 02:04 06:48 Chloride (98-107) mmol/L Carbon Dioxide (22-30) mmol/L BUN (9-20) mg/dL Creatinine (0.66-1.25) mg/dL Glucose (74-99) mg/dL POC Glucose (mg/dL) 393 H 296 H 132 H (75-99) mg/dL Iron (65-175) ug/dL TIBC (228-460) ug/dL Ferritin (22.0-322.0) ng/mL 11/10/18 Range/Units 09:04 Chloride 114 H (98-107) mmol/L Carbon Dioxide 21 L (22-30) mmol/L BUN 40 H (9-20) mg/dL Creatinine 1.63 H (0.66-1.25) mg/dL Glucose 213 H (74-99) mg/dL POC Glucose (mg/dL) (75-99) mg/dL Iron (65-175) ug/dL TIBC (228-460) ug/dL Ferritin (22.0-322.0) ng/mL Microbiology - Last 24 Hours (Table) 11/07/18 23:15 Blood Culture - Preliminary Blood No Growth after 48 hours Assessment and Plan Plan: Assessment: 1. Acute kidney injury mostly prerenal secondary to intravascular volume depletion from vomiting and further worsened with the use of entresto and Lasix. Creatinine 2.43 on admission and is down to 1.63 today. UA is quite benign. 2. Chronic kidney disease stage III. Baseline creatinine in the range of 1.1- 1.3 secondary to diabetic kidney disease. 3. Insulin-dependent diabetes mellitus. 4. Hyperkalemia secondary to acute kidney injury, metabolic acidosis and use of entresto. Better. 5. Metabolic acidosis secondary to acute kidney injury. Stable. 6. Hypotension secondary to intravascular volume depletion. Resolved. 7. Anemia of chronic kidney disease. Iron deficiency noted. Plan: Hep-Lock IV fluids. Encourage oral intake. Continue to monitor renal function and urine output. Repeat electrolytes in the morning. IV iron 2 doses. First dose today. Entresto has been resumed. Monitor potassium level closely.
[2018-11-10] MEDS ORDERED: SODIUM FERRIC GLUCONAT-SUCROSE 125 MG in SODIUM CHLORIDE 0.9% 100 ML IVPB SCH (11:00)
[2018-11-10 12:09] LABS: Glucose,Whole Blood 251 mg/dL (75-99)
[2018-11-10 14:24] VITALS: BP 143/74; PULSE 71; RESP 18; TEMP 98.6
--- NOTE | 2018-11-11 01:59 | DS ---
DISCHARGE SUMMARY DATE OF SERVICE: 11/10/2018. FINAL DIAGNOSES: 1. Acute renal failure possibly prerenal azotemia from diarrhea. 2. Acute gastritis possibly viral. 3. Hypokalemia. 4. Chronic kidney stage III. 5. History of congestive heart failure. 6. History of bronchitis. 7. History of atrial fibrillation. 8. History of chronic obstructive pulmonary disease. 9. Hypertension. 10.Hyperlipidemia. 11.History of myocardial infarction. 12.History of sleep apnea. 13.History of peripheral vascular disease. 14.History of depression. DISCHARGE DISPOSITION: The patient being discharged in stable condition with guarded prognosis. HISTORY OF PRESENT ILLNESS: This 73-year-old gentleman with a past medical history of multiple medical problems admitted with acute renal failure secondary from prerenal azotemia and diarrhea. Patient treated symptomatically. Dr. Langston saw from Nephrology. Creatinine stabilized. The patient is followed by Dr. Mendes in the outpatient setting. I recommend the patient to follow up with Dr. Mendes closely in the outpatient setting. Creatinine improved from 2.43-1.63. On exam, vitals are stable. Cardiovascular: S1, S2 normal. Abdomen soft, nontender. Chest clear to auscultation. ABDOMEN is soft, nontender. NERVOUS SYSTEM: No focal deficits. DISCHARGE INSTRUCTIONS/MEDICATIONS: 1. Diet is cardiac, renal. 2. Activity limited until followup. 3. Follow up with Dr. Mendes in 2-3 days within 1 week with CBC BMP. 4. Follow with Nephrology as recommended. DISCHARGE MEDICATIONS: 1. Aspirin 81 mg p.o. daily. 2. Coreg 6.25 mg a.c. b.i.d. 3. Entresto 1 p.o. b.i.d. 4. Glucophage 1000 mg p.o. b.i.d. 5. Iron 320 mg p.o. daily. 6. Lasix 40 mg daily p.r.n. 7. Levemir 22 units subcu b.i.d. 8. Lipitor 40 mg q.h.s. 9. Namenda 10 mg p.o. daily. 10.NovoLog a.c. and q.h.s. 11.Nuvigil 250 mg p.o. daily. 12.Pepcid 20 mg p.o. daily. 13.Pletal 50 mg p.o. b.i.d. 14.Sinemet 2500 1 p.o. b.i.d. 15.Xarelto 20 mg p.o. daily. 16.Aricept 5 mg p.o. q.h.s. 17.Zoloft [address] Mendes's and Dr. Langston's service. Once again, the patient being discharged in stable condition with guarded prognosis thank you. [email or web address] / IJN: [id number] /
== END 2018-11-10 13:53 | disposition home or self-care (01) | DRG 683 ==
LOC: EC 22:09 → 3SCARD 11-08 01:19 → 2SICU 11-08 02:57 → 4MS4W 11-08 14:51
PROVIDERS: ADMIT Internal Medicine; ATTEND Internal Medicine
DX: N17.9 Acute kidney failure, unspecified (principal); I13.0 Hypertensive heart and chronic kidney disease with heart failure and stage 1 through stage 4 chronic kidney disease, or unspecified chronic kidney disease; E87.2 Acidosis; I50.22 Chronic systolic (congestive) heart failure; A08.4 Viral intestinal infection, unspecified; E86.0 Dehydration; N18.3 Chronic kidney disease, stage 3 (moderate); I95.9 Hypotension, unspecified; E87.5 Hyperkalemia; D63.1 Anemia in chronic kidney disease; E11.22 Type 2 diabetes mellitus with diabetic chronic kidney disease; E11.51 Type 2 diabetes mellitus with diabetic peripheral angiopathy without gangrene; E11.21 Type 2 diabetes mellitus with diabetic nephropathy; E78.5 Hyperlipidemia, unspecified; G47.33 Obstructive sleep apnea (adult) (pediatric); E87.6 Hypokalemia; F03.90 Unspecified dementia, unspecified severity, without behavioral disturbance, psychotic disturbance, mood disturbance, and anxiety; I48.91 Unspecified atrial fibrillation; J44.9 Chronic obstructive pulmonary disease, unspecified; K21.9 Gastro-esophageal reflux disease without esophagitis; F32.9 Major depressive disorder, single episode, unspecified; I25.10 Atherosclerotic heart disease of native coronary artery without angina pectoris; F17.200 Nicotine dependence, unspecified, uncomplicated; Z96.1 Presence of intraocular lens; K43.9 Ventral hernia without obstruction or gangrene; F17.210 Nicotine dependence, cigarettes, uncomplicated; I25.2 Old myocardial infarction; Z95.0 Presence of cardiac pacemaker; Z79.82 Long term (current) use of aspirin; Z79.899 Other long term (current) drug therapy; Z79.02 Long term (current) use of antithrombotics/antiplatelets; Z79.4 Long term (current) use of insulin; Z79.01 Long term (current) use of anticoagulants; Z86.73 Personal history of transient ischemic attack (TIA), and cerebral infarction without residual deficits; Z80.9 Family history of malignant neoplasm, unspecified; Z99.89 Dependence on other enabling machines and devices; Z98.890 Other specified postprocedural states; Z98.42 Cataract extraction status, left eye; Z98.41 Cataract extraction status, right eye
CPT/HCPCS: 36415; 51701; 70450; 71046; 74018; 80048; 80053; 80306; 81003; 82140; 82272; 82550; 82728; 83540; 83550; 83605; 83690; 83735; 84484; 85025; 85610; 85730; 87040; 93005; 96360; 96361; 99291

== ENCOUNTER 2018-12-30 09:16 | Inpatient (IN) | payer MEDICARE ==
[2018-12-30] MEDS ORDERED: CALCIUM GLUCONATE 1 GM in SODIUM CHLORIDE 0.9% 100 ML IVPB ONE (10:30)
[2018-12-30] MEDS ORDERED: DEXTROSE 50% SYRINGE 50 ML IVP STA (10:36)
[2018-12-30] MEDS ORDERED: INSULIN REGULAR 100 UNIT/ML VIAL IV ONE (10:36)
[2018-12-30 10:37] LABS: Basophils % (A) 0 %; Eosinophils # (A) 0.4 k/uL (0-0.7); Eosinophils % (A) 6 %; HCT 32.5 % (39.0-53.0); Lymphocytes # (A) 1.9 k/uL (1.0-4.8); Lymphocytes % (A) 31 %; MCH 30.4 pg (25.0-35.0); MCHC 33.8 g/dL (31.0-37.0); MCV 89.8 fL (80.0-100.0); Mean Platelet Volume 5.9; Monocytes # (A) 0.4 k/uL (0-1.0); Monocytes % (A) 7 %; Neutrophils # (A) 3.2 k/uL (1.3-7.7); Neutrophils % (A) 53 %; Platelet Count 209 k/uL (150-450); RBC 3.62 m/uL (4.30-5.90); RDW 13.1 % (11.5-15.5)
[2018-12-30] MEDS ORDERED: SODIUM BICARB 8.4% 50 ML SYR (1 MEQ/ML) IV STA (10:37)
[2018-12-30] MEDS ORDERED: SODIUM POLYSTYRENE SULFONATE 15 GM/60 ML BOTTLE PO STA (10:38)
[2018-12-30 10:41] LABS: Albumin 3.6 g/dL (3.5-5.0); Magnesium 2.4 mg/dL (1.6-2.3); Total Bilirubin 0.3 mg/dL (0.2-1.3); Total Protein 6.3 g/dL (6.3-8.2)
[2018-12-30] MEDS: SODIUM CHLORIDE 0.9% 1,000 ML IV SCH (10:41)
[2018-12-30 10:52] LABS: Potassium 7.7 mmol/L (3.5-5.1)
[2018-12-30] MEDS ORDERED: CARVEDILOL 6.25 MG TAB PO STA (10:54)
--- NOTE | 2018-12-30 10:59 | ED ---
Recheck HPI - General Source: patient Mode of arrival: ambulatory Limitations: no limitations <Ashwini Warner - Last Filed: 12/30/18 12:09> <Richard Ocampo - Last Filed: 12/30/18 13:12> - General Chief Complaint: Recheck/Abnormal Lab/Rx Stated Complaint: abnormal labs Time Seen by Provider: 12/30/18 10:04 - History of Present Illness Initial Comments: 73-year-old male with history of hypertension, diabetes, previous CVA 12 years prior, previous myocardial infarction medically managed with pacemaker, history of kidney disease presenting to the emergency Department for chief complaint of abnormal labs. Patient states that he has been feeling fatigued for the past few weeks. He made a primary care appointment where they had outpatient labs drawn. The labs revealed a potassium of 7.1 as well as acute kidney failure and patient was sent to the emergency department for evaluation. Patient states following appointment yesterday reaction had more energy and was starting to feel better. He states he has lost fatigued today. Patient denies any chest pain shortness of breath dizziness headache nausea vomiting diarrhea or any other complaints. Patient denies any new medications. Patient denies any dysuria urgency frequency hematuria he denies noting any decrease in urine output. Patient denies any fever history of recent upper respiratory infection. Remaining review of system negative. Upon arrival patient appears well no signs acute distress. Patient is noted to have elevated blood pressure states did not take his morning coreg or any of home medications. (Ashwini Warner) - Related Data Home Medications Medication Instructions Recorded Confirmed Aspirin 81 mg PO DAILY 01/11/15 12/30/18 Atorvastatin [Lipitor] 40 mg PO HS 01/11/15 12/30/18 Ferrous Sulfate [Iron (65 MG 325 mg PO DAILY 01/11/15 12/30/18 Elemental)] Famotidine [Pepcid] 20 mg PO DAILY 01/16/18 12/30/18 INSULIN ASPART (NovoLOG) [NovoLOG See Protocol SQ ACHS 01/16/18 12/30/18 (formulary)] Carvedilol [Coreg] 6.25 mg PO AC-BID 11/07/18 12/30/18 Furosemide [Lasix] 40 mg PO DAILY 11/07/18 12/30/18 Insulin Detemir (Levemir) [Levemir] 22 unit SQ BID 11/07/18 12/30/18 Memantine [Namenda] 10 mg PO DAILY 11/07/18 12/30/18 Rivaroxaban [Xarelto] 20 mg PO DAILY 11/07/18 12/30/18 Armodafinil [Nuvigil] 150 mg PO DAILY 12/30/18 12/30/18 Cholecalciferol [Vitamin D3 (25 1,000 unit PO DAILY 12/30/18 12/30/18 Mcg = 1000 Iu)] Sacubitril/Valsartan [Entresto 49 1 tab PO BID 12/30/18 12/30/18 mg-51 mg Tablet] Sotalol [Betapace] 80 mg PO BID 12/30/18 12/30/18 metFORMIN HCL 1,000 mg PO DAILY 12/30/18 12/30/18 Previous Rx's Medication Instructions Recorded Donepezil [Aricept] 5 mg PO HS #30 tab 02/03/18 Sertraline [Zoloft] 25 mg PO HS #30 tab 02/03/18 Allergies Allergy/AdvReac Type Severity Reaction Status Date / Time codeine Allergy Unknown Verified 12/30/18 09:37 [From Tylenol-Codeine #3] Review of Systems ROS Other: All systems not noted in ROS Statement are negative. <Ashwini Warner - Last Filed: 12/30/18 12:09> ROS Other: All systems not noted in ROS Statement are negative. <Richard Ocampo - Last Filed: 12/30/18 13:12> ROS Statement: Those systems with pertinent positive or pertinent negative responses have been documented in the HPI. Past Medical History Past Medical History: Atrial Fibrillation, Heart Failure, COPD, CVA/TIA, Dementia, Diabetes Mellitus, GERD/Reflux, Hyperlipidemia, Hypertension, Myocardial Infarction ([place]), Sleep Apnea/CPAP/BIPAP, Vascular Disorder Additional Past Medical History / Comment(s): IDDM type II, 2006 CVA-more sleepy since, seizures ruled out by [facility], DION-did not tolerate mask, poor circulation to legs, poor balance, UTI. 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 Mother Family Medical History: Cancer Additional Family Medical History / Comment(s): Pt/spouse do not recall type of cancer. Brother(s) Family Medical History: Cancer <Ashwini Warner - Last Filed: 12/30/18 12:09> General Exam Limitations: no limitations <Ashwini Warner - Last Filed: 12/30/18 12:09> - General Exam Comments Initial Comments: General: The patient is awake and alert, in no distress Eye: +3 mm pupils are equal, round and reactive to light, extra-ocular movements are intact. No nystagmus. There is normal conjunctiva bilaterally. No signs of icterus. Ears, nose, mouth and throat: There are moist mucous membranes and no oral lesions. Neck: The neck is supple, there is no tenderness or JVD. Cardiovascular: There is a regular rate and rhythm. No murmur, rub or gallop is appreciated. Respiratory: Lungs are clear to auscultation, respirations are non-labored, breath sounds are equal. No wheezes, stridor, rales, or rhonchi. Gastrointestinal: Soft, non-distended, non-tender abdomen without masses or organomegaly noted. There is no rebound or guarding present. Bowel sounds are unremarkable. Musculoskeletal: Normal ROM, no tenderness. Strength 5/5. Sensation intact. Radial pulses equal bilaterally 2+. Neurological: A&O x 3. CN II-XII intact grossly, There are no obvious motor or sensory deficits. Coordination appears grossly intact. Speech is normal. Skin: Skin is warm and dry and no rashes or lesions are noted. No LE edema. Psychiatric: Cooperative, appropriate mood & affect, normal judgment. (Ashwini Warner) Course Vital Signs 12/30/18 12/30/18 12/30/18 09:19 11:15 12:37 Temperature 97.3 F L Pulse Rate 60 118 H Respiratory 20 18 18 Rate Blood Pressure 136/66 115/53 O2 Sat by Pulse 99 97 Oximetry 12/30/18 13:06 Temperature Pulse Rate 60 Respiratory 18 Rate Blood Pressure 112/68 O2 Sat by Pulse Oximetry Medical Decision Making - Lab Data Result diagrams: 12/30/18 10:11 12/30/18 10:11 <Ashwini Warner - Last Filed: 12/30/18 12:09> - Lab Data Result diagrams: 12/30/18 10:11 12/30/18 10:11 <Richard Ocampo - Last Filed: 12/30/18 13:12> - Medical Decision Making The patient is seen and examined. All diagnostics are reviewed. The case is discussed with PA and I agree with the findings as documented. The case also was discussed with Dr. Burton from intensive care unit. (Richard Ocampo) - Lab Data Lab Results 12/30/18 12/30/18 Range/Units 10:11 10:11 WBC 6.0 (3.8-10.6) k/uL RBC 3.62 L (4.30-5.90) m/uL Hgb 11.0 L (13.0-17.5) gm/dL Hct 32.5 L (39.0-53.0) % MCV 89.8 (80.0-100.0) fL MCH 30.4 (25.0-35.0) pg MCHC 33.8 (31.0-37.0) g/dL RDW 13.1 (11.5-15.5) % Plt Count 209 (150-450) k/uL Neutrophils % 53 % Lymphocytes % 31 % Monocytes % 7 % Eosinophils % 6 % Basophils % 0 % Neutrophils # 3.2 (1.3-7.7) k/uL Lymphocytes # 1.9 (1.0-4.8) k/uL Monocytes # 0.4 (0-1.0) k/uL Eosinophils # 0.4 (0-0.7) k/uL Basophils # 0.0 (0-0.2) k/uL Sodium 139 (137-145) mmol/L Potassium 7.7 H* (3.5-5.1) mmol/L Chloride 111 H (98-107) mmol/L Carbon Dioxide 14 L (22-30) mmol/L Anion Gap 14 mmol/L BUN 134 H* (9-20) mg/dL Creatinine 6.81 H (0.66-1.25) mg/dL Est GFR (CKD-EPI)AfAm 8 (>60 ml/min/1.73 sqM) Est GFR (CKD-EPI)NonAf 7 (>60 ml/min/1.73 sqM) Glucose 123 H (74-99) mg/dL Calcium 9.0 (8.4-10.2) mg/dL Magnesium 2.4 H (1.6-2.3) mg/dL Total Bilirubin 0.3 (0.2-1.3) mg/dL AST 19 (17-59) U/L ALT 11 L (21-72) U/L Alkaline Phosphatase 57 (38-126) U/L Creatine Kinase 66 (55-170) U/L Total Protein 6.3 (6.3-8.2) g/dL Albumin 3.6 (3.5-5.0) g/dL - EKG Data EKG Comments: Ventricular rate 60 bpm, CO interval 174 ms, QR advent 2 and 24 ms, QT/QTC 586/586 ms. This is his AV dual paced rhythm no ST elevation or depression is noted. EKG was personally interpretted and reviewed by attending provider. NO peaked T wave, no flattened T waves. (Ashwini Warner) Disposition Is patient prescribed a controlled substance at d/c from ED?: No Time of Disposition: 12:01 Decision to Admit Reason: Admit from EC Decision Date: 12/30/18 Decision Time: 12:02 <Ashwini Warner - Last Filed: 12/30/18 12:09> <Richard Ocampo - Last Filed: 12/30/18 13:12> Clinical Impression: Hyperkalemia, Acute kidney failure, Fatigue, Chronic anemia, Hyperchloremia Disposition: ADMITTED IP TO THIS HOSP Condition: Serious
[2018-12-30] MEDS ORDERED: NALOXONE 0.4 MG/ML 1 ML VIAL IV PRN (12:02)
[2018-12-30] MEDS ORDERED: DEXTROSE 5% IN WATER 1,000 ML with SODIUM BICARB (1 MEQ/ML) 150 ML IV SCH (12:30)
[2018-12-30] MEDS ORDERED: ONDANSETRON 4 MG/2 ML VIAL IVP STA (12:38)
[2018-12-30] MEDS ORDERED: SODIUM CHLORIDE 0.9% 500 ML 500 ML IV STA (12:57)
--- NOTE | 2018-12-30 13:01 | XR ---
EXAMINATION TYPE: XR chest 2V DATE OF EXAM: 12/30/2018 COMPARISON: 11/07/2018 INDICATION: Rule out pulmonary congestion, abnormal laboratory results TECHNIQUE: Frontal and lateral views of the chest are obtained. FINDINGS: The heart size is mildly prominent. The pulmonary vasculature is normal. The lungs are clear. Pacemaker overlies left chest. IMPRESSION: 1. Mild cardiomegaly
[2018-12-30 13:04] LABS: Glucose,Whole Blood 96 mg/dL (75-99)
--- NOTE | 2018-12-30 13:36 | P.HPIM ---
History of Present Illness This is a pleasant 73 years old male with past medical history of heart failure, atrial fibrillation, status post pacemaker, COPD, CVA/TIA, diabetes mellitus, GERD, hyperlipidemia, hypertension, sleep apnea on CPAP/BiPAP, peripheral vascular disease. Patient feels weak and poor historian, information was taken with the help with the at bedside. As per patient was feeling weak for the last 2 weeks, which significantly got worse over the last 2-3 days, associated with low blood pressure about 52/30s 2 weeks ago when the called her PCP and recommended hydration, as per had blood pressure for the last 2 days was improved up to 109/60s, also patient was complaining of from loose bowel movement for the last 2 to 3 days at least one loose bowel movement per day , associated with vomiting for 1 week. However patient denies abdominal pain. Patient was also having poor appetite and decreased oral intake. For the last 2-3 days patient needed help to walk and get up. She called his PCP and went to see him Dr. Zarco/his nurse practitioner Katiana, and his blood work came back with worsening creatinine and high potassium, he got the call today to come to the emergency room by his PCP office Patient also is heavy smoker about 1 pack per day, occasional alcohol but no illicit drugs. He has been having some dyspnea with chronic cough and recent worsening, and sure about making any phlegm but as per he was not. Patient denies chest pain As per patient was on sotalol and coreg both at home, also he was on armodafinil for sleep problem but he was not taking it over the last few weeks. On admission vitals stable, labs showing worsening creatinine from 1.6-2.4, up to 6.8. Potassium is elevated at 7.7, ever enzymes not elevated. Hemoglobin is stable at 11, rest of CBC is unremarkable. Review of Systems CONSTITUTIONAL: No fever, no malaise, no fatigue. HEENT: No recent visual problems or hearing problems. Denied any sore throat. CARDIOVASCULAR: No orthopnea, PND, no palpitations, no syncope. PULMONARY: No shortness of breath, no cough, no hemoptysis. GASTROINTESTINAL: No diarrhea, no nausea, no vomiting, no abdominal pain. Normoactive bowel sounds. NEUROLOGICAL: No headaches, no weakness, no numbness. HEMATOLOGICAL: Denies any bleeding or petechiae. GENITOURINARY: Denies any burning micturition, frequency, or urgency. MUSCULOSKELETAL/RHEUMATOLOGICAL: Denies any joint pain, swelling, or any muscle pain. ENDOCRINE: Denies any polyuria or polydipsia. Past Medical History Past Medical History: Atrial Fibrillation, Heart Failure, COPD, CVA/TIA, Dementia, Diabetes Mellitus, GERD/Reflux, Hyperlipidemia, Hypertension, Myocardial Infarction ([place]), Sleep Apnea/CPAP/BIPAP, Vascular Disorder Additional Past Medical History / Comment(s): IDDM type II, 2006 CVA-more sleepy since, seizures ruled out by [facility], DION-did not tolerate mask, poor circulation to legs, poor balance, UTI. 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 Mother Family Medical History: Cancer Additional Family Medical History / Comment(s): Pt/spouse do not recall type of cancer. Brother(s) Family Medical History: Cancer Medications and Allergies Home Medications Medication Instructions Recorded Confirmed Type Aspirin 81 mg PO DAILY 01/11/15 12/30/18 History Atorvastatin [Lipitor] 40 mg PO HS 01/11/15 12/30/18 History Ferrous Sulfate [Iron (65 MG 325 mg PO DAILY 01/11/15 12/30/18 History Elemental)] Famotidine [Pepcid] 20 mg PO DAILY 01/16/18 12/30/18 History INSULIN ASPART (NovoLOG) [NovoLOG See Protocol SQ ACHS 01/16/18 12/30/18 History (formulary)] Donepezil [Aricept] 5 mg PO HS #30 tab 02/03/18 12/30/18 Rx Sertraline [Zoloft] 25 mg PO HS #30 tab 02/03/18 12/30/18 Rx Carvedilol [Coreg] 6.25 mg PO AC-BID 11/07/18 12/30/18 History Furosemide [Lasix] 40 mg PO DAILY 11/07/18 12/30/18 History Insulin Detemir (Levemir) [Levemir] 22 unit SQ BID 11/07/18 12/30/18 History Memantine [Namenda] 10 mg PO DAILY 11/07/18 12/30/18 History Rivaroxaban [Xarelto] 20 mg PO DAILY 11/07/18 12/30/18 History Armodafinil [Nuvigil] 150 mg PO DAILY 12/30/18 12/30/18 History Cholecalciferol [Vitamin D3 (25 1,000 unit PO DAILY 12/30/18 12/30/18 History Mcg = 1000 Iu)] Sacubitril/Valsartan [Entresto 49 1 tab PO BID 12/30/18 12/30/18 History mg-51 mg Tablet] Sotalol [Betapace] 80 mg PO BID 12/30/18 12/30/18 History metFORMIN HCL 1,000 mg PO DAILY 12/30/18 12/30/18 History Allergies Allergy/AdvReac Type Severity Reaction Status Date / Time codeine Allergy Unknown Verified 12/30/18 09:37 [From Tylenol-Codeine #3] Physical Exam Vitals: Vital Signs Temp Pulse Resp BP Pulse Ox 12/30/18 11:15 118 H 18 115/53 97 12/30/18 09:19 97.3 F L 60 20 136/66 99 Intake and Output 12/29/18 12/30/18 12/30/18 22:59 06:59 14:59 Other: Weight 85.275 kg -GENERAL: The patient is alert and oriented x2-[address] and time, or iented to person, not in any acute distress. Well developed, well nourished. HEENT: Pupils are round and equally reacting to light. EOMI. No scleral icterus. No conjunctival pallor. Normocephalic, atraumatic. No pharyngeal erythema. No thyromegaly. CARDIOVASCULAR: S1 and S2 present. No murmurs, rubs, or gallops. -PULMONARY: Chest is clear to auscultation, bilateral expiratory wheezing with prolonged expiration ABDOMEN: Soft, nontender, nondistended, normoactive bowel sounds. No palpable organomegaly. Abdominal hernia MUSCULOSKELETAL: No joint swelling or deformity. EXTREMITIES: No cyanosis, clubbing, or pedal edema. NEUROLOGICAL: Gross neurological examination did not reveal any focal deficits. SKIN: No rashes. No petechiae Results CBC & Chem 7: 12/30/18 10:11 12/30/18 10:11 Labs: Abnormal Lab Results - Last 24 Hours (Table) 12/30/18 12/30/18 Range/Units 10:11 10:11 RBC 3.62 L (4.30-5.90) m/uL Hgb 11.0 L (13.0-17.5) gm/dL Hct 32.5 L (39.0-53.0) % Potassium 7.7 H* (3.5-5.1) mmol/L Chloride 111 H (98-107) mmol/L Carbon Dioxide 14 L (22-30) mmol/L BUN 134 H* (9-20) mg/dL Creatinine 6.81 H (0.66-1.25) mg/dL Glucose 123 H (74-99) mg/dL Magnesium 2.4 H (1.6-2.3) mg/dL ALT 11 L (21-72) U/L Assessment and Plan Assessment: Acute renal failure Hyperkalemia secondary to above Acute COPD exacerbation Metabolic encephalopathy, secondary to above Chronic kidney disease, mostly diabetic nephropathy. Stage III History of atrial fibrillation Chronic congestive heart failure Status post pacemaker COPD, not acute exacerbation History of CVA/TIA Diabetes mellitus Guarded Hyperlipidemia Hypertension Chronic sleep apnea on CPAP/BiPAP Peripheral vascular disease Plan: This is a pleasant 73 years old male who presents with hyperkalemia and acute kidney injury. And failure. Continue with IV fluids. Follow-up potassium level and creatinine level. Consult nephrology. Check renal ultrasound. Start patient on Solu-Medrol and breathing treatment. Nicotine patch. Consult pulmonary Adjust medication for renal dose, decrease atenolol to daily instead of twice a day, lower left anemia from 22 units to 10 units twice a day and insulin sliding scale hold Xarelto and metformin, Lasix. Change Xarelto to Eliquis with renal dose Labs and medication were reviewed.. Continue same treatment. Continue with symptomatic treatment. Resume home medication. Monitor lytes and vitals. DVT and GI prophylaxis. Further recommendations of the clinical course of the patient DVT prophylaxis: Eliquis GI Prophylaxis: Pepcid Prognosis is guarded
--- NOTE | 2018-12-30 14:32 | US ---
EXAMINATION TYPE: US renals and bladder DATE OF EXAM: 12/30/2018 COMPARISON: NONE CLINICAL HISTORY: Acute renal failure; diabetic EXAM MEASUREMENTS: US exam is technically limited due to limited patient range of motion for assessment. Right Kidney: 11.1 x 6.0 x 6.3 cm Left Kidney: 12.3 x 5.1 x 6.1 cm Post Void Residual Volume: not assessed on EC patient Right Kidney: No hydronephrosis or masses seen Left Kidney: No hydronephrosis or masses seen Bladder: wnl Bilateral Jets seen: no, only left jet was seen IMPRESSION: 1. Normal renal ultrasound
[2018-12-30 15:15] LABS: Albumin 2.3 g/dL (3.5-5.0); Potassium 4.9 mmol/L (3.5-5.1); Total Bilirubin 0.1 mg/dL (0.2-1.3); Total Protein 4.2 g/dL (6.3-8.2)
[2018-12-30 15:27] LABS: Calcium 6.4 mg/dL (8.4-10.2)
[2018-12-30 15:49] LABS: Glucose,Whole Blood 92 mg/dL (75-99)
[2018-12-30] MEDS ORDERED: methylPREDNISolone SOD SUCCI 40 MG/ML 1 ML VIAL IV SCH (16:00)
--- NOTE | 2018-12-30 16:04 | P.CNPUL ---
History of Present Illness Consult date: 12/30/18 Chief complaint: Generalized weakness, acute kidney injury, acute hyperkalemia History of present illness: This is a 73-year-old male patient came into the ED because of generalized weakness,, altered mentation, dehydration, and sepsis. The patient Has been feeling weak for the past 2 weeks and significantly got worse over the past 2-3 days. . Over the past 2-3 days, the patient got worse, unable to get up, unable to walk. The patient had seen his primary care physician and lab work was ordered on outpatient basis. The labs were significantly abnormal and the patient had an acute kidney injury and acute hyperkalemia and for that reason the patient was asked to come in immediately to the emergency department. The patient denied having any chest pain. No significant cough sputum production chest that is so wheezing. No nausea or vomiting. Denies having any dysuria frequency or urgency. He had diminished urine output. In the ED, and a temperature of 97.3. He was hemodynamically stable with a BP of 136/66 and pulse ox of 99% on room air. The patient was in, was at 6 hemoglobin 11.0. He was an acute kidney injury with a BUN of 134 and a potassium level of 7.7 and a creatinine of 6.8. Serum bicarb was 14. The anion gap was 14. The patient had an EKG that showed no peaked T waves and there was no EKG is acute hyperkalemia. The patient was started on IV fluids. He was given D50 insulin and he was given also bicarb. He was asked to be moved to the intensive care unit for further evaluation. Along with fluid resuscitation and treatment, potassium level came down to 4.5. Serum bicarb is up to 24. Creatinine is down to 4.9. Calcium level is at 6.4. LFTs continue to be within normal limits. The patient is on D5 with 3 A of bicarb at the rate of 80 mL an hour. The patient is known to multiple medical problems and comorbidities. The patient was in the hospital back in 11/08/2018 for an acute kidney injury related to diarrhea and gastroenteritis. At that time he was treated and he was discharged without any major complications. His baseline creatinine was down to 1.9 on 11/16/2018. The patient has COPD stage III. The patient has history of chronic atrial fibrillation on Xarelto. He also has chronic congestion heart failure with mild impairment of LV function and ejection fraction of 40-45% and he is also diabetic with known history of peripheral vascular disease, hypertension and hyperlipidemia and previous history of CVA back in 2006. He has had previous UTI back in 2018 with E. coli. He has carotid artery disease and undergone endarterectomy on the left. Review of Systems Constitutional: Reports fatigue, Reports poor appetite, Reports weakness Eyes: denies as per HPI, denies blurred vision, denies bulging eye, denies decreased vision, denies diplopia, denies discharge, denies dry eye, denies irritation, denies itching, denies pain, denies photophobia, denies loss of peripheral vision, denies loss of vision, denies tunnel vision/blind spots Ears: deny: decreased hearing, ear discharge, earache, tinnitus Ears, nose, mouth and throat: Denies headache, Denies sore throat Breasts: absent: as per HPI, gynecomastia Cardiovascular: Reports as per HPI Respiratory: Reports as per HPI Gastrointestinal: Reports as per HPI Genitourinary: Reports as per HPI Musculoskeletal: Reports as per HPI Musculoskeletal: absent: ankle pain, ankle stiffness, ankle swelling Integumentary: Denies pruritus, Denies rash Neurological: Reports weakness Psychiatric: Reports as per HPI Endocrine: Reports as per HPI, Reports excessive thirst, Reports fatigue Hematologic/Lymphatic: Reports as per HPI Allergic/Immunologic: Reports as per HPI Past Medical History Past Medical History: Atrial Fibrillation, Heart Failure (Mild LV function. We will ejection fraction of 40-45%), COPD, CVA/TIA, Dementia, Diabetes Mellitus, GERD/Reflux, Hyperlipidemia, Hypertension, Myocardial Infarction ([place]), Renal Disease, Sleep Apnea/CPAP/BIPAP, Vascular Disorder Additional Past Medical History / Comment(s): IDDM type II, 2006 CVA-more sleepy since, seizures ruled out by [facility], DION-did not tolerate mask, chronic kidney disease stage III, peripheral vascular disease, previous history of UTI with E. 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 Mother Family Medical History: Cancer Additional Family Medical History / Comment(s): Pt/spouse do not recall type of cancer. Brother(s) Family Medical History: Cancer Medications and Allergies Home Medications Medication Instructions Recorded Confirmed Type Aspirin 81 mg PO DAILY 01/11/15 12/30/18 History Atorvastatin [Lipitor] 40 mg PO HS 01/11/15 12/30/18 History Ferrous Sulfate [Iron (65 MG 325 mg PO DAILY 01/11/15 12/30/18 History Elemental)] Famotidine [Pepcid] 20 mg PO DAILY 01/16/18 12/30/18 History INSULIN ASPART (NovoLOG) [NovoLOG See Protocol SQ ACHS 01/16/18 12/30/18 History (formulary)] Donepezil [Aricept] 5 mg PO HS #30 tab 02/03/18 12/30/18 Rx Sertraline [Zoloft] 25 mg PO HS #30 tab 02/03/18 12/30/18 Rx Carvedilol [Coreg] 6.25 mg PO AC-BID 11/07/18 12/30/18 History Furosemide [Lasix] 40 mg PO DAILY 11/07/18 12/30/18 History Insulin Detemir (Levemir) [Levemir] 22 unit SQ BID 11/07/18 12/30/18 History Memantine [Namenda] 10 mg PO DAILY 11/07/18 12/30/18 History Rivaroxaban [Xarelto] 20 mg PO DAILY 11/07/18 12/30/18 History Armodafinil [Nuvigil] 150 mg PO DAILY 12/30/18 12/30/18 History Cholecalciferol [Vitamin D3 (25 1,000 unit PO DAILY 12/30/18 12/30/18 History Mcg = 1000 Iu)] Sacubitril/Valsartan [Entresto 49 1 tab PO BID 12/30/18 12/30/18 History mg-51 mg Tablet] Sotalol [Betapace] 80 mg PO BID 12/30/18 12/30/18 History metFORMIN HCL 1,000 mg PO DAILY 12/30/18 12/30/18 History Allergies Allergy/AdvReac Type Severity Reaction Status Date / Time codeine Allergy Unknown Verified 12/30/18 09:37 [From Tylenol-Codeine #3] Physical Exam Vitals: Vital Signs Temp Pulse Resp BP Pulse Ox 12/30/18 13:06 60 18 112/68 12/30/18 12:37 18 12/30/18 11:15 118 H 18 115/53 97 12/30/18 09:19 97.3 F L 60 20 136/66 99 Intake and Output 12/30/18 12/30/18 12/30/18 06:59 14:59 22:59 Other: Weight 85.275 kg A 14 point review of system was done and the positive findings are almost above history of present illness. Along the positive findings are the ones mentioned below. CONSTITUTIONAL: No fever, no malaise, as increased fatigue and weakness and the weakness is generalized. HEENT: No recent visual problems or hearing problems. Denied any sore throat. CARDIOVASCULAR: No orthopnea, PND, no palpitations, no syncope. PULMONARY: No shortness of breath, no cough, no hemoptysis. GASTROINTESTINAL: No diarrhea, no nausea, no vomiting, no abdominal pain. Normoactive bowel sounds. NEUROLOGICAL: No headaches, as increased generalized weakness, no numbness. The patient has generalized weakness. The patient also has had a previous history of CVA and has significant his with gait. He has some dementia. HEMATOLOGICAL: Denies any bleeding or petechiae. GENITOURINARY: Denies any burning micturition, frequency, or urgency. MUSCULOSKELETAL/RHEUMATOLOGICAL: Denies any joint pain, swelling, or any muscle pain. ENDOCRINE: Denies any polyuria or polydipsia. Results - Laboratory Findings CBC and BMP: 12/30/18 10:11 12/30/18 14:50 Abnormal lab findings: Abnormal Labs 12/30/18 12/30/18 12/30/18 10:11 10:11 14:50 RBC 3.62 L Hgb 11.0 L Hct 32.5 L Potassium 7.7 H* Chloride 111 H 108 H Carbon Dioxide 14 L BUN 134 H* 107 H* Creatinine 6.81 H 4.62 H Glucose 123 H 344 H Calcium 6.4 L* Magnesium 2.4 H Total Bilirubin 0.1 L AST 12 L ALT 11 L Alkaline Phosphatase 36 L Total Protein 4.2 L Albumin 2.3 L - Diagnostic Findings Chest x-ray: image reviewed Assessment and Plan Plan: 1 acute kidney injury on top of chronic stage III chronic kidney disease. The patient is a normal renal ultrasound. 2 acute hyperkalemia, treated and the potassium level is normalized 3 acute metabolic acidosis of an anion gap type 4 COPD 5 coronary artery disease 6 history of CHF with systolic heart failure with a mild impairment of the left ventricular ejection fraction at an ejection fraction of 40-45% 7 history of atrial fibrillation patient is currently AV paced 8 history of CVA back in 2006 9 diabetes mellitus type 2 10 hypertension 11 hyperlipidemia. 12 obstructive sleep apnea noncompliant with CPAP therapy. 13 peripheral vascular disease. Plan Continue fluid resuscitation. The patient was given 2 L bolus and the patient is currently on a bicarb drip. Creatinine is improving. Potassium level is normalized. Stop the bicarb drip and continue with normal saline at the rate of 100 mL an hour .Check urinalysis. Check urine cultures. Check blood cultures. Rest of the medication were reviewed. No changes from my standpoint. Levemir insulin doses been reduced by half. There also has been replaced with Eliquis due to underlying renal failure. Hold Entresto . Hold Coreg. Continue sotalol for now. Continue Namenda. Hold Lasix. Bronchodilators. We'll continue to follow. The patient be kept in ICU.
[2018-12-30] MEDS: IPRATROPIUM-ALBUTEROL 3 ML NEB INHALATION SCH ×3 (17:01→23:43)
[2018-12-30 17:37] LABS: Appearance,Urine Clear (Clear); Bilirubin,Urine Negative (Negative); Blood,Urine Negative (Negative); Color,Urine Light Yellow; Glucose,Urine (UA) Negative (Negative); Ketones,Urine Negative (Negative); Leukocyte Esterase,Urine Negative (Negative); Nitrite,Urine Negative (Negative); Protein,Urine Trace (Negative); Specific Gravity,Urine 1.011 (1.001-1.035); Urobilinogen,Urine <2.0 mg/dL (<2.0)
[2018-12-30 20:32] LABS: Glucose,Whole Blood 135 mg/dL (75-99)
[2018-12-30] MEDS: SERTRALINE 25 MG TAB PO SCH (20:40)
[2018-12-30] MEDS: INSULIN DETEMIR (LEVEMIR) 100 UNIT/ML SYR SQ SCH (20:40)
[2018-12-30] MEDS: DONEPEZIL 5 MG TAB PO SCH (20:40)
[2018-12-30] MEDS: methylPREDNISolone SOD SUCCI 40 MG/ML 1 ML VIAL IV SCH (20:40)
[2018-12-30] MEDS: APIXABAN 2.5 MG TABLET PO SCH (20:40)
[2018-12-30] MEDS: ATORVASTATIN 40 MG TAB PO SCH (20:40)
[2018-12-31] MEDS: IPRATROPIUM-ALBUTEROL 3 ML NEB INHALATION SCH ×6 (03:44→23:11)
[2018-12-31 05:53] LABS: Calcium 8.4 mg/dL (8.4-10.2)
[2018-12-31 06:26] LABS: Potassium 7.2 mmol/L (3.5-5.1)
[2018-12-31] MEDS ORDERED: SODIUM BICARB 8.4% 50 ML SYR (1 MEQ/ML) IV STA ×2 (07:18→07:19)
[2018-12-31] MEDS ORDERED: INSULIN REGULAR 100 UNIT/ML VIAL IV ONE ×2 (07:18→11:37)
[2018-12-31] MEDS: SODIUM CHLORIDE 0.9% 1,000 ML IV SCH (07:23)
[2018-12-31] MEDS: DEXTROSE 5% IN WATER 1,000 ML with SODIUM BICARB (1 MEQ/ML) 150 ML IV SCH ×2 (07:40→18:08)
[2018-12-31] MEDS ORDERED: CALCIUM GLUCONATE 1 GM in SODIUM CHLORIDE 0.9% 100 ML IVPB ONE (08:00)
[2018-12-31] MEDS ORDERED: SOTALOL 80 MG TAB PO SCH (09:00)
[2018-12-31] MEDS ORDERED: NICOTINE 21MG/24HR PATCH TRANSDERM SCH ×2 (09:00)
[2018-12-31] MEDS: FAMOTIDINE 20 MG TAB PO SCH (10:21)
[2018-12-31] MEDS: ASPIRIN 81 MG PO SCH (10:21)
[2018-12-31] MEDS: FERROUS SULFATE 325 MG TAB PO SCH (10:22)
[2018-12-31] MEDS: MEMANTINE 10 MG TAB PO SCH (10:23)
[2018-12-31] MEDS: INSULIN DETEMIR (LEVEMIR) 100 UNIT/ML SYR SQ SCH ×2 (10:24→20:41)
[2018-12-31] MEDS: APIXABAN 2.5 MG TABLET PO SCH (10:35)
--- NOTE | 2018-12-31 10:43 | P.NPCON ---
History of Present Illness - Reason for Consult Consult date: 12/31/18 acute renal failure, hyperkalemia - Chief Complaint Generalized weakness - History of Present Illness 73-year-old gentleman brought into the hospital by the with the above complaints. He has chronic kidney disease stage III with a baseline creatinine of 1.6-1.9 from suspected diabetic nephropathy. He also has underlying cardiomyopathy takes Entresto at home. When presented to the hospital creatinine was 6.4 and a potassium of 7.8. He was feeling unwell for the last couple of weeks at home with dry heaves and nausea. He has poor oral intake. He was also taking carvedilol at home. As per the his blood pressures were running low and the lowest recorded was 50 systolic. Denies taking NSAIDs, no contrast studies. He takes Namenda and Aricept at home. Denies urinary complai nts, frequency or urgency or retention issues. Currently Fernández catheter is in place making good amount of urine. Creatinine continue to rise, potassium persistently high. Urine analysis noted [place]. Ultrasound no obstruction. He was given hyperkalemia cocktail this morning as well as yesterday. On bicarb drip. Review of Systems Constitutional: Reports as per HPI Past Medical History Past Medical History: Atrial Fibrillation, Heart Failure, COPD, CVA/TIA, Dementia, Diabetes Mellitus, GERD/Reflux, Hyperlipidemia, Hypertension, Myocardial Infarction ([place]), Renal Disease, Sleep Apnea/CPAP/BIPAP, Vascular Disorder Additional Past Medical History / Comment(s): IDDM type II, 2006 CVA-more sleepy since, seizures ruled out by [facility], DION-did not tolerate mask, chronic kidney disease stage III, peripheral vascular disease, previous history of UTI with E. coli Last Myocardial Infarction Date:: 2006 History of Any Multi-Drug Resistant Organisms: None Reported Past Surgical History: Heart Catheterization, Pacemaker Additional Past Surgical History / Comment(s): 2007 Cardiac cath, L caratid endartectomy, pacemaker, R foot bunionectomy, R 5th finger amputation d/t press accident, colonoscopy, bilateral cataracts removed/lens implants, Past Anesthesia/Blood Transfusion Reactions: No Reported Reaction Type of Cardiac Device: Permanent Pacemaker Device Placement Date:: 2009 Past Psychological History: Anxiety, Depression Additional Psychological History / Comment(s): Pt resides with his spouse. He has a walker and a wheelchair neither of which he uses much. He no longer drives. His spouse drives. His spouse manages his medications. Smoking Status: Current every day smoker Past Alcohol Use History: None Reported Additional Past Alcohol Use History / Comment(s): Pt started smoking as a teen. He is a 2 ppd smoker. Past Drug Use History: None Reported - Past Family History Father Family Medical History: No Reported History Additional Family Medical History / Comment(s): Father in a MVA. Mother Family Medical History: Cancer Additional Family Medical History / Comment(s): Pt/spouse do not recall type of cancer. Brother(s) Family Medical History: Cancer Medications and Allergies Home Medications Medication Instructions Recorded Confirmed Type Aspirin 81 mg PO DAILY 01/11/15 12/30/18 History Atorvastatin [Lipitor] 40 mg PO HS 01/11/15 12/30/18 History Ferrous Sulfate [Iron (65 MG 325 mg PO DAILY 01/11/15 12/30/18 History Elemental)] Famotidine [Pepcid] 20 mg PO DAILY 01/16/18 12/30/18 History INSULIN ASPART (NovoLOG) [NovoLOG See Protocol SQ ACHS 01/16/18 12/30/18 History (formulary)] Donepezil [Aricept] 5 mg PO HS #30 tab 02/03/18 12/30/18 Rx Sertraline [Zoloft] 25 mg PO HS #30 tab 02/03/18 12/30/18 Rx Carvedilol [Coreg] 6.25 mg PO AC-BID 11/07/18 12/30/18 History Furosemide [Lasix] 40 mg PO DAILY 11/07/18 12/30/18 History Insulin Detemir (Levemir) [Levemir] 22 unit SQ BID 11/07/18 12/30/18 History Memantine [Namenda] 10 mg PO DAILY 11/07/18 12/30/18 History Rivaroxaban [Xarelto] 20 mg PO DAILY 11/07/18 12/30/18 History Armodafinil [Nuvigil] 150 mg PO DAILY 12/30/18 12/30/18 History Cholecalciferol [Vitamin D3 (25 1,000 unit PO DAILY 12/30/18 12/30/18 History Mcg = 1000 Iu)] Sacubitril/Valsartan [Entresto 49 1 tab PO BID 12/30/18 12/30/18 History mg-51 mg Tablet] Sotalol [Betapace] 80 mg PO BID 12/30/18 12/30/18 History metFORMIN HCL 1,000 mg PO DAILY 12/30/18 12/30/18 History Allergies Allergy/AdvReac Type Severity Reaction Status Date / Time codeine Allergy Unknown Verified 12/30/18 09:37 [From Tylenol-Codeine #3] Physical Exam Vitals: Vital Signs Temp Pulse Pulse Resp BP BP Pulse Ox 12/31/18 09:00 63 20 90/34 12/31/18 08:34 68 12/31/18 08:25 66 12/31/18 08:00 97.7 F 63 20 98/64 12/31/18 00:02 97.6 F 60 14 103/40 96 12/30/18 23:57 60 12/30/18 23:45 60 12/30/18 20:28 97.7 F 60 16 124/51 96 12/30/18 19:58 62 12/30/18 19:50 60 12/30/18 19:00 60 18 117/60 97 12/30/18 18:00 60 17 105/46 96 12/30/18 17:14 58 L 12/30/18 17:01 60 12/30/18 17:00 61 15 118/68 97 12/30/18 16:00 97.1 F L 64 14 106/79 98 12/30/18 15:52 97.7 F 60 19 12/30/18 13:06 60 18 112/68 12/30/18 12:37 18 12/30/18 11:15 118 H 18 115/53 97 Intake and Output 12/30/18 12/31/18 12/31/18 22:59 06:59 14:59 Intake Total 550 800 300 Output Total 1150 350 340 Balance -600 450 -40 Intake: IV 100 800 300 Dextrose 5% in Water 1, 300 000 ml @ 100 mls/hr IV . [id number] VINCENT with Sodium Bicarb (1 Meq/ml) 150 ml Rx#:[id number] Sodium Chloride 0.9% 1, 100 800 000 ml @ 100 mls/hr IV . Q10H VINCENT Rx#:[id number] Intake, IV Titration 400 Amount Dextrose 5% in Water 1, 0 000 ml @ 80 mls/hr IV . [id number] VINCENT with Sodium Bicarb (1 Meq/ml) 150 ml Rx#:[id number] Sodium Chloride 0.9% 1, 400 000 ml @ 100 mls/hr IV . Q10H VINCENT Rx#:[id number] Oral 50 Output: Urine 1150 350 340 Other: Voiding Method Indwelling Catheter Indwelling Catheter Weight 91.2 kg No acute distress S1-S2 heard Decreased breath sounds Abdomen soft Fernández catheter No edema Results - Lab Results Most recent lab results Calcium 8.4 mg/dL (8.4-10.2) 12/31/18 05:11 Magnesium 2.4 mg/dL (1.6-2.3) H 12/30/18 10:11 12/30/18 10:11 12/31/18 05:11 Assessment and Plan Assessment: #1 nonoliguric acute kidney injury secondary to ischemic ATN with low blood pressures. Urinary retention is also a possibility with history of diabetes and taking anticholinergics. -Check CPK to rule out rhabdomyolysis with persistent hyperkalemia even though urine analysis has no blood. #2 hypotension #3 hyperkalemia persistent, secondary to acute kidney injury/acidosis/valsartan. #4 metabolic acidosis secondary to acute kidney injury #5 chronic kidney disease stage III secondary to diabetic nephropathy with a baseline creatinine of 1.6-1.9 MG per DL. Plan: #1 continue with bicarb drip. #2 hyperkalemia cocktail given this morning. Follow up on repeat potassium. If potassium persistently high, will need hemodialysis. Discussed with the family and agreeable. #3 hold on liquids and consider heparin drip, in need for Rao catheter. #4 hold all antihypertensive medications. #5 strict ins and outs #6 avoid nephrotoxic agents and hypotensive episodes. #7 add low-dose midodrine for hemodynamic support.
[2018-12-31 11:30] LABS: Calcium 8.5 mg/dL (8.4-10.2)
[2018-12-31] MEDS ORDERED: FUROSEMIDE 10 MG/ML 4 ML VIAL IV STA (11:36)
[2018-12-31 11:39] LABS: Potassium 6.5 mmol/L (3.5-5.1)
[2018-12-31] MEDS ORDERED: SODIUM POLYSTYRENE SULFONATE 15 GM/60 ML BOTTLE PO STA (11:39)
[2018-12-31 12:02] LABS: Glucose,Whole Blood 300 mg/dL (75-99)
[2018-12-31] MEDS ORDERED: MIDODRINE 5 MG TAB PO SCH (12:30)
--- NOTE | 2018-12-31 13:12 | P.PN ---
Subjective This is a pleasant 73 years old male with past medical history of heart failure, atrial fibrillation, status post pacemaker, COPD, CVA/TIA, diabetes mellitus, GERD, hyperlipidemia, hypertension, sleep apnea on CPAP/BiPAP, peripheral vascular disease. Patient feels weak and poor historian, information was taken with the help with the at bedside. As per patient was feeling weak for the last 2 weeks, which significantly got worse over the last 2-3 days, associated with low blood pressure about 52/30s 2 weeks ago when the called her PCP and recommended hydration, as per had blood pressure for the last 2 days was improved up to 109/60s, also patient was complaining of from loose bowel movement for the last 2 to 3 days at least one loose bowel movement per day , associated with vomiting for 1 week. However patient denies abdominal pain. Patient was also having poor appetite and decreased oral intake. For the last 2-3 days patient needed help to walk and get up. She called his PCP and went to see him Dr. Zarco/his nurse practitioner Katiana, and his blood work came back with worsening creatinine and high potassium, he got the call today to come to the emergency room by his PCP office Patient also is heavy smoker about 1 pack per day, occasional alcohol but no illicit drugs. He has been having some dyspnea with chronic cough and recent worsening, and sure about making any phlegm but as per he was not. Patient denies chest pain As per patient was on sotalol and coreg both at home, also he was on a rmodafinil for sleep problem but he was not taking it over the last few weeks. On admission vitals stable, labs showing worsening creatinine from 1.6-2.4, up to 6.8. Potassium is elevated at 7.7, ever enzymes not elevated. Hemoglobin is stable at 11, rest of CBC is unremarkable. 12/31/2018 Patient is awake and alert with no chest pain or dyspnea. No coughing. He still feels generally weak. Not complaining of from pain. No urinary complaints, his blood pressure is 90/34, heart rate is 66. his sotalol was stopped. His potassium this morning is 7.2 and 6.5, creatinine is persistently elevated at 6.4 and 6.5. Sugar is on the high side, we going to increase his Levemir to 15 units twice a day. Patient has normal renal ultrasound. Urine culture are still pending. Nephrology and pulmonary team input is appreciated. Patient to continue on bicarbonate drip. Nephrology team are considering renal replacement therapy and hemodialysis. Eliquis was stopped upon recommendation of gauger chief for patient might need a renal catheter. And instead we will put the patient on subcu heparin. Medial drain is added for blood pressure support Review of systems CONSTITUTIONAL: No fever, no malaise, no fatigue. HEENT: No recent visual problems or hearing problems. Denied any sore throat. CARDIOVASCULAR: No orthopnea, PND, no palpitations, no syncope. PULMONARY: No shortness of breath, no cough, no hemoptysis. GASTROINTESTINAL: No diarrhea, no nausea, no vomiting, no abdominal pain. Normoactive bowel sounds. NEUROLOGICAL: No headaches, no weakness, no numbness. HEMATOLOGICAL: Denies any bleeding or petechiae. GENITOURINARY: Denies any burning micturition, frequency, or urgency. MUSCULOSKELETAL/RHEUMATOLOGICAL: Denies any joint pain, swelling, or any muscle pain. ENDOCRINE: Denies any polyuria or polydipsia. Active Medications Albuterol/Ipratropium (Duoneb 0.5 Mg-3 Mg/3 Ml Soln) 3 ml INHALATION RT-Q4H [facility] Last Admin: 12/31/18 12:21 Dose: 3 ml Documented by: Aspirin (Aspirin) 81 mg PO DAILY [facility] Last Admin: 12/31/18 10:21 Dose: 81 mg Documented by: Atorvastatin Calcium (Lipitor) 40 mg PO [facility] Last Admin: 12/30/18 20:40 Dose: 40 mg Documented by: Donepezil HCl (Aricept) 5 mg PO [facility] Last Admin: 12/30/18 20:40 Dose: 5 mg Documented by: Famotidine (Pepcid) 20 mg PO DAILY [facility] Last Admin: 12/31/18 10:21 Dose: 20 mg Documented by: Ferrous Sulfate (Feosol) 325 mg PO DAILY [facility] Last Admin: 12/31/18 10:22 Dose: 325 mg Documented by: Sodium Bicarbonate 150 ml/ (Dextrose/Water) 1,150 mls @ 100 mls/hr IV .[id number] [facility] Last Admin: 12/31/18 07:40 Dose: 100 mls/hr Documented by: Insulin Detemir (Levemir) 15 unit SQ BID [facility] Memantine (Namenda) 10 mg PO DAILY [facility] Last Admin: 12/31/18 10:23 Dose: 10 mg Documented by: Midodrine (Proamatine) 2.5 mg PO AC-TID [facility] Last Admin: 12/31/18 12:15 Dose: 2.5 mg Documented by: Naloxone HCl (Narcan) 0.2 mg IV Q2M PRN PRN Reason: Opioid Reversal Sertraline HCl (Zoloft) 25 mg PO HS [facility] Last Admin: 12/30/18 20:40 Dose: 25 mg Documented by: Objective - Vital Signs Vital signs: Vital Signs Temp 97.7 F 12/31/18 08:00 Pulse 66 12/31/18 12:27 Resp 20 12/31/18 09:00 BP 90/34 12/31/18 09:00 Pulse Ox 96 12/31/18 00:02 Intake & Output 12/30/18 12/31/18 12/31/18 18:59 06:59 18:59 Intake Total 350 1000 300 Output Total 1050 450 340 Balance -700 550 -40 Weight 85.275 kg 91.2 kg Intake: IV 900 300 Dextrose 5% in Water 1, 300 000 ml @ 100 mls/hr IV . [id number] [facility]ENT with Sodium Bicarb (1 Meq/ml) 150 ml Rx#:[id number] Sodium Chloride 0.9% 1, 900 000 ml @ 100 mls/hr IV . Q10H [facility] Rx#:[id number] Intake, IV Titration 300 100 Amount Dextrose 5% in Water 1, 0 000 ml @ 80 mls/hr IV . [id number] [facility]ENT with Sodium Bicarb (1 Meq/ml) 150 ml Rx#:[id number] Sodium Chloride 0.9% 1, 300 100 000 ml @ 100 mls/hr IV . Q10H [facility]ENT Rx#:[id number] Oral 50 Output: Urine 1050 450 340 Other: Voiding Method Indwelling Catheter Indwelling Catheter - Exam -GENERAL: The patient is alert and oriented x2-[address] and time, oriented to person, not in any acute distress. Well developed, well nourished. HEENT: Pupils are round and equally reacting to light. EOMI. No scleral icterus. No conjunctival pallor. Normocephalic, atraumatic. No pharyngeal erythema. No thyromegaly. CARDIOVASCULAR: S1 and S2 present. No murmurs, rubs, or gallops. PULMONARY: Chest is clear to auscultation, no wheezing ABDOMEN: Soft, nontender, nondistended, normoactive bowel sounds. No palpable organomegaly. Abdominal hernia MUSCULOSKELETAL: No joint swelling or deformity. EXTREMITIES: No cyanosis, clubbing, or pedal edema. NEUROLOGICAL: Gross neurological examination did not reveal any focal deficits. SKIN: No rashes. No petechiae - Labs CBC & Chem 7: 12/30/18 10:11 12/31/18 09:56 Labs: Abnormal Lab Results - Last 24 Hours (Table) 12/30/18 12/30/18 12/30/18 Range/Units 14:50 17:20 20:29 Potassium (3.5-5.1) mmol/L Chloride 108 H (98-107) mmol/L Carbon Dioxide (22-30) mmol/L BUN 107 H* (9-20) mg/dL Creatinine 4.62 H (0.66-1.25) mg/dL Glucose 344 H (74-99) mg/dL POC Glucose (mg/dL) 135 H (75-99) mg/dL Calcium 6.4 L* (8.4-10.2) mg/dL Total Bilirubin 0.1 L (0.2-1.3) mg/dL AST 12 L (17-59) U/L Alkaline Phosphatase 36 L (38-126) U/L Total Protein 4.2 L (6.3-8.2) g/dL Albumin 2.3 L (3.5-5.0) g/dL Urine Protein Trace H (Negative) 12/31/18 12/31/18 12/31/18 Range/Units 05:11 09:56 11:34 Potassium 7.2 H* 6.5 H* (3.5-5.1) mmol/L Chloride 113 H 112 H (98-107) mmol/L Carbon Dioxide 12 L 16 L (22-30) mmol/L BUN 125 H* 127 H* (9-20) mg/dL Creatinine 6.54 H 6.48 H (0.66-1.25) mg/dL Glucose 219 H 232 H (74-99) mg/dL POC Glucose (mg/dL) 300 H (75-99) mg/dL Calcium (8.4-10.2) mg/dL Total Bilirubin (0.2-1.3) mg/dL AST (17-59) U/L Alkaline Phosphatase (38-126) U/L Total Protein (6.3-8.2) g/dL Albumin (3.5-5.0) g/dL Urine Protein (Negative) Microbiology - Last 24 Hours (Table) 12/30/18 17:20 Urine Culture - Preliminary Urine,Catheterized Assessment and Plan Assessment: Acute renal failure Hyperkalemia Metabolic encephalopathy, secondary to above. Resolved Chronic kidney disease, mostly diabetic nephropathy. Stage III secondary to above Mild Acute COPD exacerbation. Resolved History of atrial fibrillation Chronic congestive heart failure Status post pacemaker COPD, not acute exacerbation History of CVA/TIA Diabetes mellitus Guarded Hyperlipidemia Hypertension Chronic sleep apnea on CPAP/BiPAP Peripheral vascular disease Plan: This is a pleasant 73 years old male who presents with hyperkalemia and acute kidney injury. Continue with sodium bicarb. Follow-up potassium level and creatinine level. Consult nephrology. Follow-up recommendation from lmonary/critical care team. Patient might need hemodialysis Adjust medication for renal dose, stop sotalol, lower Levemir from 22 units to 15 units twice a day and insulin sliding scale hold Xarelto and metformin, Lasix. Labs and medication were reviewed.. Continue same treatment. Continue with symptomatic treatment. Resume home medication. Monitor lytes and vitals. DVT and GI prophylaxis. Further recommendations of the clinical course of the patient DVT prophylaxis: sc heparin GI Prophylaxis: Pepcid Prognosis is guarded
--- NOTE | 2018-12-31 13:45 | P.PN ---
Subjective Progress Note Date: 12/31/18 This is a 73-year-old male patient came into the ED because of generalized weakness,, altered mentation, dehydration, and sepsis. The patient Has been feeling weak for the past 2 weeks and significantly got worse over the past 2-3 days. . Over the past 2-3 days, the patient got worse, unable to get up, unable to walk. The patient had seen his primary care physician and lab work was ordered on outpatient basis. The labs were significantly abnormal and the patient had an acute kidney injury and acute hyperkalemia and for that reason the patient was asked to come in immediately to the emergency department. The patient denied having any chest pain. No significant cough sputum production chest that is so wheezing. No nausea or vomiting. Denies having any dysuria frequency or urgency. He had diminished urine output. In the ED, and a temperature of 97.3. He was hemodynamically stable with a BP of 136/66 and pulse ox of 99% on room air. The patient was in, was at 6 hemoglobin 11.0. He was an acute kidney injury with a BUN of 134 and a potassium level of 7.7 and a creatinine of 6.8. Serum bicarb was 14. The anion gap was 14. The patient had an EKG that showed no peaked T waves and there was no EKG is acute hyperkalemia. The patient was started on IV fluids. He was given D50 insulin and he was given also bicarb. He was asked to be moved to the intensive care unit for further evaluation. Along with fluid resuscitation and treatment, potassium level came down to 4.5. Serum bicarb is up to 24. Creatinine is down to 4.9. Calcium level is at 6.4. LFTs continue to be within normal limits. The patient is on D5 with 3 A of bicarb at the rate of 80 mL an hour. The patient is known to multiple medical problems and comorbidities. The patient was in the hospital back in 11/08/2018 for an acute kidney injury related to diarrhea and gastroenteritis. At that time he was treated and he was discharged without any major complications. His baseline creatinine was down to 1.9 on 11/16/2018. The patient has COPD stage III. The patient has history of chronic atrial fib rillation on Xarelto. He also has chronic congestion heart failure with mild impairment of LV function and ejection fraction of 40-45% and he is also diabetic with known history of peripheral vascular disease, hypertension and hyperlipidemia and previous history of CVA back in 2007. He has had previous UTI back in 2018 with E. coli. He has carotid artery disease and undergone endarterectomy on the left. On 12/31/2008 Seeing this patient for a follow-up. Overall, the patient is still stable. The patient was resuscitated IV fluids and there was some improvement in the labs which I think it's an erroneous recording as the patient's subsequent blood work that was obtained this morning showed significant abnormalities with ongoing elevation the potassium and creatinine being still elevated. The patient has chronic stage III kidney disease with a creatinine ranging between 1.6 and 1.9. He comes in with an acute kidney injury. This is probably related to medications and diminished oral intake. The patient is still receiving IV fluids. I switched him today bicarb infusion this morning. His hyperkalemia was treated with a potassium lowering cocktail where he was given bicarb and insulin. He is producing urine. Ultrasound the kidneys shows no evidence of any obstruction and there is no evidence of any hydronephrosis. The patient is resting comfortably in bed. He is afebrile for now. Urinalysis was negative for any acute infection. He was taken off anticoagulation. He is on Levemir insulin 50 units twice a day along with fine scale coverage for blood sugar control. He is also on a bicarb infusion which is running at 100 mL an hour. Objective - Vital Signs Vital signs: Vital Signs Temp 97.7 F 12/31/18 08:00 Pulse 66 12/31/18 12:27 Resp 20 12/31/18 09:00 BP 90/34 12/31/18 09:00 Pulse Ox 96 12/31/18 00:02 Intake & Output 12/30/18 12/31/18 12/31/18 18:59 06:59 18:59 Intake Total 350 1000 300 Output Total 1050 450 340 Balance -700 550 -40 Weight 85.275 kg 91.2 kg Intake: IV 900 300 Dextrose 5% in Water 1, 300 000 ml @ 100 mls/hr IV . [id number] [facility] with Sodium Bicarb (1 Meq/ml) 150 ml Rx#:[id number] Sodium Chloride 0.9% 1, 900 000 ml @ 100 mls/hr IV . Q10H [facility] Rx#:[id number] Intake, IV Titration 300 100 Amount Dextrose 5% in Water 1, 0 000 ml @ 80 mls/hr IV . [id number] [facility] with Sodium Bicarb (1 Meq/ml) 150 ml Rx#:[id number] Sodium Chloride 0.9% 1, 300 100 000 ml @ 100 mls/hr IV . Q10H [facility] Rx#:[id number] Oral 50 Output: Urine 1050 450 340 Other: Voiding Method Indwelling Catheter Indwelling Catheter - Exam -GENERAL: The patient is alert and oriented x2-[address] and time, oriented to person, not in any acute distress. Well developed, well nourished. Head exam was generally normal. There was no scleral icterus or corneal arcus. M ucous membranes were moist. Neck was supple and without jugular venous distension, thyromegaly, or carotid bruits. Carotids were easily palpable bilaterally. There was no adenopathy. CARDIOVASCULAR: S1 and S2 present. No murmurs, rubs, or gallops. -PULMONARY: Chest is clear to auscultation, bilateral expiratory wheezing with prolonged expiration ABDOMEN: Soft, nontender, nondistended, normoactive bowel sounds. No palpable organomegaly. Abdominal hernia MUSCULOSKELETAL: No joint swelling or deformity. EXTREMITIES: No cyanosis, clubbing, or pedal edema. NEUROLOGICAL: Gross neurological examination did not reveal any focal deficits. SKIN: No rashes. No petechiae - Labs CBC & Chem 7: 12/30/18 10:11 12/31/18 09:56 Labs: Abnormal Lab Results - Last 24 Hours (Table) 12/30/18 12/30/18 12/30/18 Range/Units 14:50 17:20 20:29 Potassium (3.5-5.1) mmol/L Chloride 108 H (98-107) mmol/L Carbon Dioxide (22-30) mmol/L BUN 107 H* (9-20) mg/dL Creatinine 4.62 H (0.66-1.25) mg/dL Glucose 344 H (74-99) mg/dL POC Glucose (mg/dL) 135 H (75-99) mg/dL Calcium 6.4 L* (8.4-10.2) mg/dL Total Bilirubin 0.1 L (0.2-1.3) mg/dL AST 12 L (17-59) U/L Alkaline Phosphatase 36 L (38-126) U/L Total Protein 4.2 L (6.3-8.2) g/dL Albumin 2.3 L (3.5-5.0) g/dL Urine Protein Trace H (Negative) 12/31/18 12/31/18 12/31/18 Range/Units 05:11 09:56 11:34 Potassium 7.2 H* 6.5 H* (3.5-5.1) mmol/L Chloride 113 H 112 H (98-107) mmol/L Carbon Dioxide 12 L 16 L (22-30) mmol/L BUN 125 H* 127 H* (9-20) mg/dL Creatinine 6.54 H 6.48 H (0.66-1.25) mg/dL Glucose 219 H 232 H (74-99) mg/dL POC Glucose (mg/dL) 300 H (75-99) mg/dL Calcium (8.4-10.2) mg/dL Total Bilirubin (0.2-1.3) mg/dL AST (17-59) U/L Alkaline Phosphatase (38-126) U/L Total Protein (6.3-8.2) g/dL Albumin (3.5-5.0) g/dL Urine Protein (Negative) Microbiology - Last 24 Hours (Table) 12/30/18 17:20 Urine Culture - Preliminary Urine,Catheterized Assessment and Plan Plan: 1 acute kidney injury on top of chronic stage III chronic kidney disease. The patient is a normal renal ultrasound. The patient continues to have an abnormal renal function and a creatinine today is at 6.5.the potassium level is still elevated and the hyperkalemia is being treated accordingly. He is nonoliguric. Nephritis on the case. No need for dialysis at this point in time unless his condition gets worse. 2 acute hyperkalemia, treated aand follow-up potassium level is still pending for now. 3 acute metabolic acidosis of an anion gap type, Currently on a bicarb infusion 4 COPD 5 coronary artery disease 6 history of CHF with systolic heart failure with a mild impairment of the left ventricular ejection fraction at an ejection fraction of 40-45% 7 history of atrial fibrillation patient is currently AV paced 8 history of CVA back in 2006 9 diabetes mellitus type 2 10 hypertension 11 hyperlipidemia. 12 obstructive sleep apnea noncompliant with CPAP therapy. 13 peripheral vascular disease. Plan Continue fluid resuscitation. continue the bicarb infusion at the rate of 100 mL an hour. Will need a tighter blood sugar control is on Levemir insulin 50 units twice a day along with insulin coverage. May need to use insulin drip of 2 blood sugars continue to be elevated. Repeat potassium level. Repeatthe rest of the electrolytes. We'll keep the patient ICU. Nephrology on the case. We'l l continue to follow.
[2018-12-31] MEDS ORDERED: HEPARIN SODIUM,PORCINE 5,000 UNIT/ML 1 ML VIAL SQ SCH (16:00)
[2018-12-31] MEDS ORDERED: HEPARIN SOD,PORK IN 0.45% NACL 25,000 UNIT in 0.45% NACL 1 250ML.BAG IV SCH (16:15)
[2018-12-31 16:23] LABS: Calcium 8.2 mg/dL (8.4-10.2); Potassium 5.9 mmol/L (3.5-5.1)
[2018-12-31 17:22] LABS: Glucose,Whole Blood 493 mg/dL (75-99)
[2018-12-31] MEDS ORDERED: INSULIN ASPART (NovoLOG) 100 UNIT/ML VIAL SQ ONE (17:31)
[2018-12-31] MEDS: MIDODRINE 5 MG TAB PO SCH (18:08)
[2018-12-31 18:33] LABS: Basophils % (A) 0 %; Eosinophils % (A) 1 %; HCT 28.5 % (39.0-53.0); HGB 9.6 gm/dL (13.0-17.5); Lymphocytes # (A) 0.7 k/uL (1.0-4.8); Lymphocytes % (A) 10 %; MCH 31.4 pg (25.0-35.0); MCHC 33.6 g/dL (31.0-37.0); MCV 93.5 fL (80.0-100.0); Mean Platelet Volume 6.2; Monocytes # (A) 0.4 k/uL (0-1.0); Monocytes % (A) 5 %; Neutrophils # (A) 6.5 k/uL (1.3-7.7); Neutrophils % (A) 84 %; Platelet Count 207 k/uL (150-450); RBC 3.04 m/uL (4.30-5.90); RDW 13.3 % (11.5-15.5); WBC 7.7 k/uL (3.8-10.6)
[2018-12-31 18:43] LABS: Partial Thromboplastin Time 20.1 sec (22.0-30.0); Prothrombin Time 10.5 sec (9.0-12.0)
[2018-12-31] MEDS ORDERED: HEPARIN SODIUM,PORCINE 5,000 UNIT/ML 1 ML VIAL IV ONE (20:00)
[2018-12-31] MEDS: NICOTINE 21MG/24HR PATCH TRANSDERM SCH (20:01)
[2018-12-31] MEDS: HEPARIN SOD,PORK IN 0.45% NACL 25,000 UNIT in 0.45% NACL 1 250ML.BAG IV SCH (20:01)
[2018-12-31 20:18] LABS: Calcium 7.9 mg/dL (8.4-10.2); Potassium 5.6 mmol/L (3.5-5.1)
[2018-12-31 20:41] LABS: Glucose,Whole Blood 491 mg/dL (75-99)
[2018-12-31] MEDS: SERTRALINE 25 MG TAB PO SCH (20:41)
[2018-12-31] MEDS: ATORVASTATIN 40 MG TAB PO SCH (20:41)
[2018-12-31] MEDS: DONEPEZIL 5 MG TAB PO SCH (20:41)
[2018-12-31] MEDS: INSULIN ASPART (NovoLOG) 100 UNIT/ML VIAL SQ SCH (20:42)
[2018-12-31] MEDS ORDERED: INSULIN DETEMIR (LEVEMIR) 100 UNIT/ML SYR SQ SCH (21:00)
[2018-12-31] MEDS: HEPARIN SODIUM,PORCINE 5,000 UNIT/ML 1 ML VIAL IV PRN (23:34)
[2019-01-01] MEDS: IPRATROPIUM-ALBUTEROL 3 ML NEB INHALATION SCH ×6 (03:40→23:50)
[2019-01-01] MEDS: DEXTROSE 5% IN WATER 1,000 ML with SODIUM BICARB (1 MEQ/ML) 150 ML IV SCH (05:08)
[2019-01-01 05:34] LABS: Basophils % (A) 1 %; Eosinophils # (A) 0.1 k/uL (0-0.7); Eosinophils % (A) 2 %; HCT 27.2 % (39.0-53.0); HGB 9.1 gm/dL (13.0-17.5); Lymphocytes # (A) 1.3 k/uL (1.0-4.8); Lymphocytes % (A) 16 %; MCH 30.7 pg (25.0-35.0); MCHC 33.7 g/dL (31.0-37.0); MCV 91.3 fL (80.0-100.0); Mean Platelet Volume 7.2; Monocytes # (A) 0.4 k/uL (0-1.0); Monocytes % (A) 5 %; Neutrophils # (A) 6.1 k/uL (1.3-7.7); Neutrophils % (A) 76 %; Platelet Count 200 k/uL (150-450); RBC 2.98 m/uL (4.30-5.90); RDW 13.4 % (11.5-15.5)
[2019-01-01 06:39] LABS: Calcium 8.3 mg/dL (8.4-10.2); Potassium 4.6 mmol/L (3.5-5.1)
[2019-01-01] MEDS: INSULIN DETEMIR (LEVEMIR) 100 UNIT/ML SYR SQ SCH ×2 (07:23→21:51)
[2019-01-01] MEDS: INSULIN ASPART (NovoLOG) 100 UNIT/ML VIAL SQ SCH ×4 (07:23→21:51)
[2019-01-01] MEDS: MIDODRINE 5 MG TAB PO SCH (07:23)
[2019-01-01] MEDS: SODIUM CHLORIDE 0.9% 1,000 ML IV SCH ×2 (07:24→17:23)
[2019-01-01 07:29] LABS: Glucose,Whole Blood 189 mg/dL (75-99)
--- NOTE | 2019-01-01 08:14 | P.PN ---
Subjective Progress Note Date: 01/01/19 This is a 73-year-old male patient came into the ED because of generalized weakness,, altered mentation, dehydration, and sepsis. The patient Has been feeling weak for the past 2 weeks and significantly got worse over the past 2-3 days. . Over the past 2-3 days, the patient got worse, unable to get up, unable to walk. The patient had seen his primary care physician and lab work was ordered on outpatient basis. The labs were significantly abnormal and the patient had an acute kidney injury and acute hyperkalemia and for that reason the patient was asked to come in immediately to the emergency department. The patient denied having any chest pain. No significant cough sputum production chest that is so wheezing. No nausea or vomiting. Denies having any dysuria frequency or urgency. He had diminished urine output. In the ED, and a temperature of 97.3. He was hemodynamically stable with a BP of 136/66 and pulse ox of 99% on room air. The patient was in, was at 6 hemoglobin 11.0. He was an acute kidney injury with a BUN of 134 and a potassium level of 7.7 and a creatinine of 6.8. Serum bicarb was 14. The anion gap was 14. The patient had an EKG that showed no peaked T waves and there was no EKG is acute hyperkalemia. The patient was started on IV fluids. He was given D50 insulin and he was given also bicarb. He was asked to be moved to the intensive care unit for further evaluation. Along with fluid resuscitation and treatment, potassium level came down to 4.5. Serum bicarb is up to 24. Creatinine is down to 4.9. Calcium level is at 6.4. LFTs continue to be within normal limits. The patient is on D5 with 3 A of bicarb at the rate of 80 mL an hour. The patient is known to multiple medical problems and comorbidities. The patient was in the hospital back in 11/08/2018 for an acute kidney injury related to diarrhea and gastroenteritis. At that time he was treated and he was discharged without any major complications. His baseline creatinine was down to 1.9 on 11/16/2018. The patient has COPD stage III. The patient has history of chronic atrial fib rillation on Xarelto. He also has chronic congestion heart failure with mild impairment of LV function and ejection fraction of 40-45% and he is also diabetic with known history of peripheral vascular disease, hypertension and hyperlipidemia and previous history of CVA back in 2007. He has had previous UTI back in 2018 with E. coli. He has carotid artery disease and undergone endarterectomy on the left. On 12/31/2008 Seeing this patient for a follow-up. Overall, the patient is still stable. The patient was resuscitated IV fluids and there was some improvement in the labs which I think it's an erroneous recording as the patient's subsequent blood work that was obtained this morning showed significant abnormalities with ongoing elevation the potassium and creatinine being still elevated. The patient has chronic stage III kidney disease with a creatinine ranging between 1.6 and 1.9. He comes in with an acute kidney injury. This is probably related to medications and diminished oral intake. The patient is still receiving IV fluids. I switched him today bicarb infusion this morning. His hyperkalemia was treated with a potassium lowering cocktail where he was given bicarb and insulin. He is producing urine. Ultrasound the kidneys shows no evidence of any obstruction and there is no evidence of any hydronephrosis. The patient is resting comfortably in bed. He is afebrile for now. Urinalysis was negative for any acute infection. He was taken off anticoagulation. He is on Levemir insulin 50 units twice a day along with fine scale coverage for blood sugar control. He is also on a bicarb infusion which is running at 100 mL an hour. On 01/01/2019, the patient remains in intensive care unit. He has no specific complaints. Potassium level is normalized. Serum bicarb level is improved. Nevertheless, there is no improvement in creatinine which remains quite elevated at 6.08. BUN is 119. No significant alteration in mental status compared to yesterday. No signs of any fluid overload. He is producing urine output and the neck fluid balance the past 24 hours has been +784 mL. His urine output was 1700 over the past 24 hours. Nephritis on the case. Dialysis is being contemplated on this patient. Ultrasound the kidneys showed no evidence of any hydronephrosis. The patient off the bicarb drip and put him on a normal saline infusion. He is off the Rey inhibitors. He is also off diuretics for now. Xarelto is also on hold based on his underlying renal failure and the patient is receiving IV heparin accordingly. Objective - Vital Signs Vital signs: Vital Signs Temp 98 F 01/01/19 04:00 Pulse 60 01/01/19 07:00 Resp 26 H 01/01/19 07:00 BP 129/50 01/01/19 07:00 Pulse Ox 97 01/01/19 07:00 Intake & Output 12/31/18 01/01/19 01/01/19 18:59 06:59 18:59 Intake Total 1220 1319.321 100 Output Total 930 825 75 Balance 290 494.321 25 Weight 93.9 kg Intake: IV 1100 1200 100 Dextrose 5% in Water 1, 1100 1200 100 000 ml @ 100 mls/hr IV . [id number] VINCENT with Sodium Bicarb (1 Meq/ml) 150 ml Rx#:[id number] Intake, IV Titration 119.321 0 Amount Heparin Sod,Pork in 0.45% 119.321 0 NaCl 25,000 unit In 0.45 % NaCl 1 250ml.bag @ 10. 96 UNITS/KG/HR 9.996 mls/ hr IV .Q24H VINCENT Rx#: [id number] Oral 120 Output: Urine 930 825 75 Other: Voiding Method Indwelling Catheter Indwelling Catheter - Exam -GENERAL: The patient is alert and oriented x2-[address] and time, oriented to person, not in any acute distress. Well developed, well nourished. Head exam was generally normal. There was no scleral icterus or corneal arcus. Mucous membranes were moist. Neck was supple and without jugular venous distension, thyromegaly, or carotid bruits. Carotids were easily palpable bilaterally. There was no adenopathy. CARDIOVASCULAR: S1 and S2 present. No murmurs, rubs, or gallops. -PULMONARY: Chest is clear to auscultation, bilateral expiratory wheezing with prolonged expiration ABDOMEN: Soft, nontender, nondistended, normoactive bowel sounds. No palpable organomegaly. Abdominal hernia MUSCULOSKELETAL: No joint swelling or deformity. EXTREMITIES: No cyanosis, clubbing, or pedal edema. NEUROLOGICAL: Gross neurological examination did not reveal any focal deficits. SKIN: No rashes. No petechiae - Labs CBC & Chem 7: 01/01/19 05:03 01/01/19 05:03 Labs: Abnormal Lab Results - Last 24 Hours (Table) 12/31/18 12/31/18 12/31/18 Range/Units 09:56 11:34 15:48 RBC (4.30-5.90) m/uL Hgb (13.0-17.5) gm/dL Hct (39.0-53.0) % Lymphocytes # (1.0-4.8) k/uL APTT (22.0-30.0) sec Potassium 6.5 H* 5.9 H (3.5-5.1) mmol/L Chloride 112 H 108 H (98-107) mmol/L Carbon Dioxide 16 L 21 L (22-30) mmol/L BUN 127 H* 121 H* (9-20) mg/dL Creatinine 6.48 H 6.32 H (0.66-1.25) mg/dL Glucose 232 H 381 H (74-99) mg/dL POC Glucose (mg/dL) 300 H (75-99) mg/dL Calcium 8.2 L (8.4-10.2) mg/dL 12/31/18 12/31/18 12/31/18 Range/Units 17:08 17:56 17:56 RBC 3.04 L (4.30-5.90) m/uL Hgb 9.6 L (13.0-17.5) gm/dL Hct 28.5 L (39.0-53.0) % Lymphocytes # 0.7 L (1.0-4.8) k/uL APTT 20.1 L (22.0-30.0) sec Potassium (3.5-5.1) mmol/L Chloride (98-107) mmol/L Carbon Dioxide (22-30) mmol/L BUN (9-20) mg/dL Creatinine (0.66-1.25) mg/dL Glucose (74-99) mg/dL POC Glucose (mg/dL) 493 H (75-99) mg/dL Calcium (8.4-10.2) mg/dL 12/31/18 12/31/18 12/31/18 Range/Units 20:00 20:37 22:18 RBC (4.30-5.90) m/uL Hgb (13.0-17.5) gm/dL Hct (39.0-53.0) % Lymphocytes # (1.0-4.8) k/uL APTT 35.8 H (22.0-30.0) sec Potassium 5.6 H (3.5-5.1) mmol/L Chloride (98-107) mmol/L Carbon Dioxide 21 L (22-30) mmol/L BUN 123 H* (9-20) mg/dL Creatinine 5.99 H (0.66-1.25) mg/dL Glucose 491 H (74-99) mg/dL POC Glucose (mg/dL) 491 H (75-99) mg/dL Calcium 7.9 L (8.4-10.2) mg/dL 01/01/19 01/01/19 01/01/19 Range/Units 05:03 05:03 05:03 RBC 2.98 L (4.30-5.90) m/uL Hgb 9.1 L (13.0-17.5) gm/dL Hct 27.2 L (39.0-53.0) % Lymphocytes # (1.0-4.8) k/uL APTT 98.7 H (22.0-30.0) sec Potassium (3.5-5.1) mmol/L Chloride (98-107) mmol/L Carbon Dioxide (22-30) mmol/L BUN 119 H* (9-20) mg/dL Creatinine 6.08 H (0.66-1.25) mg/dL Glucose 192 H (74-99) mg/dL POC Glucose (mg/dL) (75-99) mg/dL Calcium 8.3 L (8.4-10.2) mg/dL 01/01/19 Range/Units 07:03 RBC (4.30-5.90) m/uL Hgb (13.0-17.5) gm/dL Hct (39.0-53.0) % Lymphocytes # (1.0-4.8) k/uL APTT (22.0-30.0) sec Potassium (3.5-5.1) mmol/L Chloride (98-107) mmol/L Carbon Dioxide (22-30) mmol/L BUN (9-20) mg/dL Creatinine (0.66-1.25) mg/dL Glucose (74-99) mg/dL POC Glucose (mg/dL) 189 H (75-99) mg/dL Calcium (8.4-10.2) mg/dL Microbiology - Last 24 Hours (Table) 12/30/18 17:20 Urine Culture - Final Urine,Catheterized Assessment and Plan Plan: 1 acute kidney injury on top of chronic stage III chronic kidney disease. The patient is a normal renal ultrasound. Patient developed severe metabolic acidosis and hyperkalemia. Both are treated. Nevertheless creatinine is still elevated. He is nonoliguric. The findings on the case. Consider dialysis. He'll be kept in ICU. 2 acute hyperkalemia, treated 3 acute metabolic acidosis of an anion gap type, treated and the patient was switched to normal saline 4 COPD 5 coronary artery disease 6 history of CHF with systolic heart failure with a mild impairment of the left ventricular ejection fraction at an ejection fraction of 40-45% 7 history of atrial fibrillation patient is currently AV paced 8 history of CVA back in 2006 9 diabetes mellitus type 2 10 hypertension 11 hyperlipidemia. 12 obstructive sleep apnea noncompliant with CPAP therapy. 13 peripheral vascular disease. Plan Continue fluid resuscitation. His continue the bicarb drip and put the patient on normal saline today to 100 mL an hour. Monitor urine output. IV heparin. Avoid nephrotoxic agents. Consider hemodialysis over the next 24 hours especially if there is no improvement. Nephrology is on the case. We'll continue to follow. We'll keep the patient ICU.
[2019-01-01] MEDS: FERROUS SULFATE 325 MG TAB PO SCH (09:25)
[2019-01-01] MEDS: ASPIRIN 81 MG PO SCH (09:25)
[2019-01-01] MEDS: FAMOTIDINE 20 MG TAB PO SCH (09:25)
[2019-01-01] MEDS: MEMANTINE 10 MG TAB PO SCH (09:25)
[2019-01-01] MEDS: NICOTINE 21MG/24HR PATCH TRANSDERM SCH (09:26)
--- NOTE | 2019-01-01 09:57 | P.PN ---
Subjective Progress Note Date: 01/01/19 Seen and examined for the follow-up of acute kidney injury. Good urine output, 1700 ML's in the last 24 hours. Potassiums better back to normal. No nausea vomiting diarrhea. Objective - Vital Signs Vital signs: Vital Signs Temp 98 F 01/01/19 04:00 Pulse 62 01/01/19 08:31 Resp 26 H 01/01/19 07:00 BP 129/50 01/01/19 07:00 Pulse Ox 97 01/01/19 07:00 Intake & Output 12/31/18 01/01/19 01/01/19 18:59 06:59 18:59 Intake Total 1220 1319.321 100 Output Total 930 825 75 Balance 290 494.321 25 Weight 93.9 kg Intake: IV 1100 1200 100 Dextrose 5% in Water 1, 1100 1200 100 000 ml @ 100 mls/hr IV . [id number] VINCENT with Sodium Bicarb (1 Meq/ml) 150 ml Rx#:[id number] Intake, IV Titration 119.321 0 Amount Heparin Sod,Pork in 0.45% 119.321 0 NaCl 25,000 unit In 0.45 % NaCl 1 250ml.bag @ 10. 96 UNITS/KG/HR 9.996 mls/ hr IV .Q24H VINCENT Rx#: [id number] Oral 120 Output: Urine 930 825 75 Other: Voiding Method Indwelling Catheter Indwelling Catheter - Exam No acute distress S1-S2 heard Lungs clear Abdomen soft Fernández catheter Trace edema - Labs CBC & Chem 7: 01/01/19 05:03 01/01/19 05:03 Labs: Abnormal Lab Results - Last 24 Hours (Table) 12/31/18 12/31/18 12/31/18 Range/Units 09:56 11:34 15:48 RBC (4.30-5.90) m/uL Hgb (13.0-17.5) gm/dL Hct (39.0-53.0) % Lymphocytes # (1.0-4.8) k/uL APTT (22.0-30.0) sec Potassium 6.5 H* 5.9 H (3.5-5.1) mmol/L Chloride 112 H 108 H (98-107) mmol/L Carbon Dioxide 16 L 21 L (22-30) mmol/L BUN 127 H* 121 H* (9-20) mg/dL Creatinine 6.48 H 6.32 H (0.66-1.25) mg/dL Glucose 232 H 381 H (74-99) mg/dL POC Glucose (mg/dL) 300 H (75-99) mg/dL Calcium 8.2 L (8.4-10.2) mg/dL 12/31/18 12/31/18 12/31/18 Range/Units 17:08 17:56 17:56 RBC 3.04 L (4.30-5.90) m/uL Hgb 9.6 L (13.0-17.5) gm/dL Hct 28.5 L (39.0-53.0) % Lymphocytes # 0.7 L (1.0-4.8) k/uL APTT 20.1 L (22.0-30.0) sec Potassium (3.5-5.1) mmol/L Chloride (98-107) mmol/L Carbon Dioxide (22-30) mmol/L BUN (9-20) mg/dL Creatinine (0.66-1.25) mg/dL Glucose (74-99) mg/dL POC Glucose (mg/dL) 493 H (75-99) mg/dL Calcium (8.4-10.2) mg/dL 12/31/18 12/31/18 12/31/18 Range/Units 20:00 20:37 22:18 RBC (4.30-5.90) m/uL Hgb (13.0-17.5) gm/dL Hct (39.0-53.0) % Lymphocytes # (1.0-4.8) k/uL APTT 35.8 H (22.0-30.0) sec Potassium 5.6 H (3.5-5.1) mmol/L Chloride (98-107) mmol/L Carbon Dioxide 21 L (22-30) mmol/L BUN 123 H* (9-20) mg/dL Creatinine 5.99 H (0.66-1.25) mg/dL Glucose 491 H (74-99) mg/dL POC Glucose (mg/dL) 491 H (75-99) mg/dL Calcium 7.9 L (8.4-10.2) mg/dL 09/01/01/19 01/01/19 Range/Units 05:03 05:03 05:03 RBC 2.98 L (4.30-5.90) m/uL Hgb 9.1 L (13.0-17.5) gm/dL Hct 27.2 L (39.0-53.0) % Lymphocytes # (1.0-4.8) k/uL APTT 98.7 H (22.0-30.0) sec Potassium (3.5-5.1) mmol/L Chloride (98-107) mmol/L Carbon Dioxide (22-30) mmol/L BUN 119 H* (9-20) mg/dL Creatinine 6.08 H (0.66-1.25) mg/dL Glucose 192 H (74-99) mg/dL POC Glucose (mg/dL) (75-99) mg/dL Calcium 8.3 L (8.4-10.2) mg/dL 01/01/19 Range/Units 07:03 RBC (4.30-5.90) m/uL Hgb (13.0-17.5) gm/dL Hct (39.0-53.0) % Lymphocytes # (1.0-4.8) k/uL APTT (22.0-30.0) sec Potassium (3.5-5.1) mmol/L Chloride (98-107) mmol/L Carbon Dioxide (22-30) mmol/L BUN (9-20) mg/dL Creatinine (0.66-1.25) mg/dL Glucose (74-99) mg/dL POC Glucose (mg/dL) 189 H (75-99) mg/dL Calcium (8.4-10.2) mg/dL Microbiology - Last 24 Hours (Table) 12/30/18 17:20 Urine Culture - Final Urine,Catheterized Assessment and Plan Assessment: #1 nonoliguric acute kidney injury secondary to ischemic ATN with low blood pressures. Urinary retention is also a possibility with history of diabetes and taking anticholinergics. #2 hypotension, better #3 hyperkalemia resolved with medical management, secondary to acute kidney injury/acidosis/valsartan. #4 metabolic acidosis secondary to acute kidney injury, resolved #5 chronic kidney disease stage III secondary to diabetic nephropathy with a baseline creatinine of 1.6-1.9 MG per DL. Plan: #1 renal function stable. Potassium back to normal. #2 bicarb drip change to normal saline continue with IV fluids. #3 hold on liquids and consider heparin drip, in need for Rao catheter. #4 strict ins and outs #5 discussed with the family if need for dialysis family agreeable. No need for renal replacement therapy today we will continue to monitor renal function.
[2019-01-01 11:43] LABS: Glucose,Whole Blood 97 mg/dL (75-99)
--- NOTE | 2019-01-01 13:40 | P.PN ---
Subjective This is a pleasant 73 years old male with past medical history of heart failure, atrial fibrillation, status post pacemaker, COPD, CVA/TIA, diabetes mellitus, GERD, hyperlipidemia, hypertension, sleep apnea on CPAP/BiPAP, peripheral vascular disease. Patient feels weak and poor historian, information was taken with the help with the at bedside. As per patient was feeling weak for the last 2 weeks, which significantly got worse over the last 2-3 days, associated with low blood pressure about 52/30s 2 weeks ago when the called her PCP and recommended hydration, as per had blood pressure for the last 2 days was improved up to 109/60s, also patient was complaining of from loose bowel movement for the last 2 to 3 days at least one loose bowel movement per day , associated with vomiting for 1 week. However patient denies abdominal pain. Patient was also having poor appetite and decreased oral intake. For the last 2-3 days patient needed help to walk and get up. She called his PCP and went to see him Dr. Zarco/his nurse practitioner Katiana, and his blood work came back with worsening creatinine and high potassium, he got the call today to come to the emergency room by his PCP office Patient also is heavy smoker about 1 pack per day, occasional alcohol but no illicit drugs. He has been having some dyspnea with chronic cough and recent worsening, and sure about making any phlegm but as per he was not. Patient denies chest pain As per patient was on sotalol and coreg both at home, also he was on a rmodafinil for sleep problem but he was not taking it over the last few weeks. On admission vitals stable, labs showing worsening creatinine from 1.6-2.4, up to 6.8. Potassium is elevated at 7.7, ever enzymes not elevated. Hemoglobin is stable at 11, rest of CBC is unremarkable. 12/31/2018 Patient is awake and alert with no chest pain or dyspnea. No coughing. He still feels generally weak. Not complaining of from pain. No urinary complaints, his blood pressure is 90/34, heart rate is 66. his sotalol was stopped. His potassium this morning is 7.2 and 6.5, creatinine is persistently elevated at 6.4 and 6.5. Sugar is on the high side, we going to increase his Levemir to 15 units twice a day. Patient has normal renal ultrasound. Urine culture are still pending. Nephrology and pulmonary team input is appreciated. Patient to continue on bicarbonate drip. Nephrology team are considering renal replacement therapy and hemodialysis. Eliquis was stopped upon recommendation of heel seater for patient might need a renal catheter. And instead we will put the patient on subcu heparin. Medial drain is added for blood pressure support 01/01/2019 Patient remains in the ICU with no new complaints. He is not in distress. No chest pain or dyspnea. He still generally weak. Vital signs stable. Creatinine is 6.0 today, patient remains on heparin drip as his Eliquis was held for possible need for hemodialysis. Change bicarb drip to normal saline as per heel seater recommendation. No need for renal replacement therapy today as per heel seater. We'll keep monitoring Review of systems CONSTITUTIONAL: No fever, no malaise, no fatigue. HEENT: No recent visual problems or hearing problems. Denied any sore throat. CARDIOVASCULAR: No orthopnea, PND, no palpitations, no syncope. PULMONARY: No shortness of breath, no cough, no hemoptysis. GASTROINTESTINAL: No diarrhea, no nausea, no vomiting, no abdominal pain. Normoactive bowel sounds. NEUROLOGICAL: No headaches, no weakness, no numbness. HEMATOLOGICAL: Denies any bleeding or petechiae. GENITOURINARY: Denies any burning micturition, frequency, or urgency. MUSCULOSKELETAL/RHEUMATOLOGICAL: Denies any joint pain, swelling, or any muscle pain. ENDOCRINE: Denies any polyuria or polydipsia. Active Medications Albuterol/Ipratropium (Duoneb 0.5 Mg-3 Mg/3 Ml Soln) 3 ml INHALATION RT-Q4H [facility] Last Admin: 12/31/18 12:21 Dose: 3 ml Documented by: Aspirin (Aspirin) 81 mg PO DAILY [facility] Last Admin: 12/31/18 10:21 Dose: 81 mg Documented by: Atorvastatin Calcium (Lipitor) [address] [facility] Last Admin: 12/30/18 20:40 Dose: 40 mg Documented by: Donepezil HCl (Aricept) [address] [facility] Last Admin: 12/30/18 20:40 Dose: 5 mg Documented by: Famotidine (Pepcid) 20 mg PO DAILY [facility] Last Admin: 12/31/18 10:21 Dose: 20 mg Documented by: Ferrous Sulfate (Feosol) 325 mg PO DAILY [facility] Last Admin: 12/31/18 10:22 Dose: 325 mg Documented by: Sodium Bicarbonate 150 ml/ (Dextrose/Water) 1,150 mls @ 100 mls/hr IV .[id number] [facility] Last Admin: 12/31/18 07:40 Dose: 100 mls/hr Documented by: Insulin Detemir (Levemir) 15 unit SQ BID [facility] Memantine (Namenda) 10 mg PO DAILY [facility] Last Admin: 12/31/18 10:23 Dose: 10 mg Documented by: Midodrine (Proamatine) 2.5 mg PO AC-TID [facility] Last Admin: 12/31/18 12:15 Dose: 2.5 mg Documented by: Naloxone HCl (Narcan) 0.2 mg IV Q2M PRN PRN Reason: Opioid Reversal Sertraline HCl (Zoloft) 25 mg PO HS [facility] Last Admin: 12/30/18 20:40 Dose: 25 mg Documented by: Objective - Vital Signs Vital signs: Vital Signs Temp 98.3 F 01/01/19 12:00 Pulse 63 01/01/19 13:00 Resp 24 01/01/19 13:00 BP 161/70 01/01/19 13:00 Pulse Ox 97 01/01/19 13:00 Intake & Output 12/31/18 01/01/19 01/01/19 18:59 06:59 18:59 Intake Total 1220 1319.321 940 Output Total 930 825 435 Balance 290 494.321 505 Weight 93.9 kg 93.9 kg Intake: IV 1100 1200 700 Dextrose 5% in Water 1, 1100 1200 100 000 ml @ 100 mls/hr IV . [id number] [facility] with Sodium Bicarb (1 Meq/ml) 150 ml Rx#:[id number] Sodium Chloride 0.9% 1, 600 000 ml @ 100 mls/hr IV . Q10H [facility] Rx#:[id number] Intake, IV Titration 119.321 0 Amount Heparin Sod,Pork in 0.45% 119.321 0 NaCl 25,000 unit In 0.45 % NaCl 1 250ml.bag @ 10. 96 UNITS/KG/HR 9.996 mls/ hr IV .Q24H [facility] Rx#: [id number] Oral 120 240 Output: Urine 930 825 435 Other: Voiding Method Indwelling Catheter Indwelling Catheter Indwelling Catheter - Exam -GENERAL: The patient is alert and oriented x2-[address] and time, oriented to person, not in any acute distress. Well developed, well nourished. HEENT: Pupils are round and equally reacting to light. EOMI. No scleral icterus. No conjunctival pallor. Normocephalic, atraumatic. No pharyngeal erythema. No thyromegaly. CARDIOVASCULAR: S1 and S2 present. No murmurs, rubs, or gallops. PULMONARY: Chest is clear to auscultation, no wheezing ABDOMEN: Soft, nontender, nondistended, normoactive bowel sounds. No palpable organomegaly. Abdominal hernia MUSCULOSKELETAL: No joint swelling or deformity. EXTREMITIES: No cyanosis, clubbing, or pedal edema. NEUROLOGICAL: Gross neurological examination did not reveal any focal deficits. SKIN: No rashes. No petechiae - Labs CBC & Chem 7: 01/01/19 05:03 01/01/19 05:03 Labs: Abnormal Lab Results - Last 24 Hours (Table) 12/31/18 12/31/18 12/31/18 Range/Units 15:48 17:08 17:56 RBC 3.04 L (4.30-5.90) m/uL Hgb 9.6 L (13.0-17.5) gm/dL Hct 28.5 L (39.0-53.0) % Lymphocytes # 0.7 L (1.0-4.8) k/uL APTT (22.0-30.0) sec Potassium 5.9 H (3.5-5.1) mmol/L Chloride 108 H (98-107) mmol/L Carbon Dioxide 21 L (22-30) mmol/L BUN 121 H* (9-20) mg/dL Creatinine 6.32 H (0.66-1.25) mg/dL Glucose 381 H (74-99) mg/dL POC Glucose (mg/dL) 493 H (75-99) mg/dL Calcium 8.2 L (8.4-10.2) mg/dL 12/31/18 12/31/18 12/31/18 Range/Units 17:56 20:00 20:37 RBC (4.30-5.90) m/uL Hgb (13.0-17.5) gm/dL Hct (39.0-53.0) % Lymphocytes # (1.0-4.8) k/uL APTT 20.1 L (22.0-30.0) sec Potassium 5.6 H (3.5-5.1) mmol/L Chloride (98-107) mmol/L Carbon Dioxide 21 L (22-30) mmol/L BUN 123 H* (9-20) mg/dL Creatinine 5.99 H (0.66-1.25) mg/dL Glucose 491 H (74-99) mg/dL POC Glucose (mg/dL) 491 H (75-99) mg/dL Calcium 7.9 L (8.4-10.2) mg/dL 12/31/18 01/01/19 01/01/19 Range/Units 22:18 05:03 05:03 RBC 2.98 L (4.30-5.90) m/uL Hgb 9.1 L (13.0-17.5) gm/dL Hct 27.2 L (39.0-53.0) % Lymphocytes # (1.0-4.8) k/uL APTT 35.8 H (22.0-30.0) sec Potassium (3.5-5.1) mmol/L Chloride (98-107) mmol/L Carbon Dioxide (22-30) mmol/L BUN 119 H* (9-20) mg/dL Creatinine 6.08 H (0.66-1.25) mg/dL Glucose 192 H (74-99) mg/dL POC Glucose (mg/dL) (75-99) mg/dL Calcium 8.3 L (8.4-10.2) mg/dL 01/01/19 01/01/19 01/01/19 Range/Units 05:03 07:03 13:07 RBC (4.30-5.90) m/uL Hgb (13.0-17.5) gm/dL Hct (39.0-53.0) % Lymphocytes # (1.0-4.8) k/uL APTT 98.7 H 54.7 H (22.0-30.0) sec Potassium (3.5-5.1) mmol/L Chloride (98-107) mmol/L Carbon Dioxide (22-30) mmol/L BUN (9-20) mg/dL Creatinine (0.66-1.25) mg/dL Glucose (74-99) mg/dL POC Glucose (mg/dL) 189 H (75-99) mg/dL Calcium (8.4-10.2) mg/dL Microbiology - Last 24 Hours (Table) 12/30/18 17:20 Urine Culture - Final Urine,Catheterized Assessment and Plan Assessment: Acute renal failure Hyperkalemia Metabolic encephalopathy, secondary to above. Resolved Chronic kidney disease, mostly diabetic nephropathy. Stage III secondary to above Mild Acute COPD exacerbation. Resolved History of atrial fibrillation Chronic congestive heart failure Status post pacemaker COPD, not acute exacerbation History of CVA/TIA Diabetes mellitus Guarded Hyperlipidemia Hypertension Chronic sleep apnea on CPAP/BiPAP Peripheral vascular disease Plan: This is a pleasant 73 years old male who presents with hyperkalemia and acute kidney injury. Continue with sodium bicarb. Follow-up potassium level and creatinine level. Consult nephrology. Follow-up recommendation from pulelis huddleston/critical care team. Patient might need hemodialysis Adjust medication for renal dose, stop sotalol, lower Levemir from 22 units to 15 units twice a day and insulin sliding scale hold Xarelto and metformin, Lasix. Labs and medication were reviewed.. Continue same treatment. Continue with sy mptomatic treatment. Resume home medication. Monitor lytes and vitals. DVT and GI prophylaxis. Further recommendations of the clinical course of the patient DVT prophylaxis: sc heparin GI Prophylaxis: Pepcid Prognosis is guarded
[2019-01-01 16:44] LABS: Glucose,Whole Blood 44 mg/dL (75-99)
[2019-01-01 16:44] LABS: Glucose,Whole Blood 44 mg/dL (75-99)
[2019-01-01 17:15] LABS: Glucose,Whole Blood 60 mg/dL (75-99)
[2019-01-01 17:19] LABS: Glucose,Whole Blood 86 mg/dL (75-99)
[2019-01-01] MEDS: HEPARIN SOD,PORK IN 0.45% NACL 25,000 UNIT in 0.45% NACL 1 250ML.BAG IV SCH (17:23)
[2019-01-01] MEDS: amLODIPine 5 MG TAB PO SCH (17:50)
[2019-01-01 19:03] LABS: Glucose,Whole Blood 175 mg/dL (75-99)
[2019-01-01] MEDS ORDERED: FUROSEMIDE 10 MG/ML 10 ML VIAL IV STA ×2 (19:22→22:41)
--- NOTE | 2019-01-01 19:38 | XR ---
EXAMINATION TYPE: XR chest 1V portable DATE OF EXAM: 01/01/2019 COMPARISON: 12/30/2018 HISTORY: Short of breath TECHNIQUE: Single frontal view of the chest is obtained. FINDINGS: Heart is enlarged. There is pulmonary edema. There is a left axillary pacemaker. There are chest leads. IMPRESSION: Pulmonary edema appears new compared to last exam and consistent with congestive heart f ailure.
[2019-01-01 21:26] LABS: Glucose,Whole Blood 177 mg/dL (75-99)
[2019-01-01] MEDS: SERTRALINE 25 MG TAB PO SCH (21:50)
[2019-01-01] MEDS: DONEPEZIL 5 MG TAB PO SCH (21:50)
[2019-01-01] MEDS: ATORVASTATIN 40 MG TAB PO SCH (21:50)
[2019-01-01] MEDS ORDERED: LORazepam 2 MG/ML INJ IV STA (23:01)
[2019-01-02] MEDS: IPRATROPIUM-ALBUTEROL 3 ML NEB INHALATION SCH ×5 (04:42→20:25)
[2019-01-02 05:04] LABS: Basophils % (A) 0 %; Eosinophils # (A) 0.2 k/uL (0-0.7); Eosinophils % (A) 2 %; HCT 31.9 % (39.0-53.0); HGB 10.5 gm/dL (13.0-17.5); Lymphocytes # (A) 1.3 k/uL (1.0-4.8); Lymphocytes % (A) 13 %; MCHC 32.7 g/dL (31.0-37.0); MCV 91.7 fL (80.0-100.0); Mean Platelet Volume 5.8; Monocytes # (A) 0.4 k/uL (0-1.0); Monocytes % (A) 4 %; Neutrophils # (A) 8.1 k/uL (1.3-7.7); Neutrophils % (A) 80 %; Platelet Count 210 k/uL (150-450); RBC 3.48 m/uL (4.30-5.90); RDW 13.2 % (11.5-15.5); WBC 10.1 k/uL (3.8-10.6)
[2019-01-02 05:15] LABS: Calcium 8.6 mg/dL (8.4-10.2); Potassium 4.2 mmol/L (3.5-5.1)
[2019-01-02 07:07] LABS: Glucose,Whole Blood 108 mg/dL (75-99)
--- NOTE | 2019-01-02 07:27 | XR ---
EXAMINATION TYPE: XR chest 1V portable DATE OF EXAM: 01/02/2019 COMPARISON: 01/01/2019 HISTORY: Pulmonary edema. Follow-up exam. Shortness of breath. TECHNIQUE: Single frontal view of the chest is obtained. FINDINGS: There is a similar degree of interstitial pulmonary edema, overall moderate. Cardiomediast inal silhouette is upper limits of normal with multilead left-sided cardiac device. Very trace pleura l effusions blunt the costophrenic angles. Mireya appear engorged likely from vascular congestion. No a cute osseous pathology is seen. IMPRESSION: Similar degree of interstitial pulmonary edema and trace pleural effusions. Congestive h eart failure should again be considered.
[2019-01-02] MEDS: HEPARIN SODIUM,PORCINE 5,000 UNIT/ML 1 ML VIAL IV PRN (08:44)
[2019-01-02] MEDS: INSULIN ASPART (NovoLOG) 100 UNIT/ML VIAL SQ SCH ×4 (08:54→21:10)
[2019-01-02] MEDS ORDERED: FUROSEMIDE 10 MG/ML 10 ML VIAL IV STA (09:26)
[2019-01-02] MEDS: NICOTINE 21MG/24HR PATCH TRANSDERM SCH (10:21)
--- NOTE | 2019-01-02 10:23 | P.PN ---
Subjective This is a pleasant 73 years old male with past medical history of heart failure, atrial fibrillation, status post pacemaker, COPD, CVA/TIA, diabetes mellitus, GERD, hyperlipidemia, hypertension, sleep apnea on CPAP/BiPAP, peripheral vascular disease. Patient feels weak and poor historian, information was taken with the help with the at bedside. As per patient was feeling weak for the last 2 weeks, which significantly got worse over the last 2-3 days, associated with low blood pressure about 52/30s 2 weeks ago when the called her PCP and recommended hydration, as per had blood pressure for the last 2 days was improved up to 109/60s, also patient was complaining of from loose bowel movement for the last 2 to 3 days at least one loose bowel movement per day , associated with vomiting for 1 week. However patient denies abdominal pain. Patient was also having poor appetite and decreased oral intake. For the last 2-3 days patient needed help to walk and get up. She called his PCP and went to see him Dr. Zarco/his nurse practitioner Katiana, and his blood work came back with worsening creatinine and high potassium, he got the call today to come to the emergency room by his PCP office Patient also is heavy smoker about 1 pack per day, occasional alcohol but no illicit drugs. He has been having some dyspnea with chronic cough and recent worsening, and sure about making any phlegm but as per he was not. Patient denies chest pain As per patient was on sotalol and coreg both at home, also he was on a rmodafinil for sleep problem but he was not taking it over the last few weeks. On admission vitals stable, labs showing worsening creatinine from 1.6-2.4, up to 6.8. Potassium is elevated at 7.7, ever enzymes not elevated. Hemoglobin is stable at 11, rest of CBC is unremarkable. 12/31/2018 Patient is awake and alert with no chest pain or dyspnea. No coughing. He still feels generally weak. Not complaining of from pain. No urinary complaints, his blood pressure is 90/34, heart rate is 66. his sotalol was stopped. His potassium this morning is 7.2 and 6.5, creatinine is persistently elevated at 6.4 and 6.5. Sugar is on the high side, we going to increase his Levemir to 15 units twice a day. Patient has normal renal ultrasound. Urine culture are still pending. Nephrology and pulmonary team input is appreciated. Patient to continue on bicarbonate drip. Nephrology team are considering renal replacement therapy and hemodialysis. Eliquis was stopped upon recommendation of java j2ee technical lead for patient might need a renal catheter. And instead we will put the patient on subcu heparin. Medial drain is added for blood pressure support 01/01/2019 Patient remains in the ICU with no new complaints. He is not in distress. No chest pain or dyspnea. He still generally weak. Vital signs stable. Creatinine is 6.0 today, patient remains on heparin drip as his Eliquis was held for possible need for hemodialysis. Change bicarb drip to normal saline as per java j2ee technical lead recommendation. No need for renal replacement therapy today as per java j2ee technical lead. We'll keep monitoring 01/02/2019 Patient remains in the ICU, patient clinically the same with no dyspnea or chest pain. Patient is hemodynamically stable with blood pressure 155/73 cartridges low 60s. Coreg and sotalol remain on hold. His creatinine slightly came down today from 6.0 to 5.6. Potassium 4.2. Sugar is controlled today 108-177, patient remains on Levemir 15 units twice a day, liver enzymes were not baldomero vated. Final urine culture showing no growth. On admission his Xarelto was stopped and patient was placed on heparin drip, For his history of atrial fibrillation, Patient is followed closely by pulmonary and nephrology teams. Review of systems CONSTITUTIONAL: No fever, no malaise, no fatigue. HEENT: No recent visual problems or hearing problems. Denied any sore throat. CARDIOVASCULAR: No orthopnea, PND, no palpitations, no syncope. PULMONARY: No shortness of breath, no cough, no hemoptysis. GASTROINTESTINAL: No diarrhea, no nausea, no vomiting, no abdominal pain. Normoactive bowel sounds. NEUROLOGICAL: No headaches, no weakness, no numbness. HEMATOLOGICAL: Denies any bleeding or petechiae. GENITOURINARY: Denies any burning micturition, frequency, or urgency. MUSCULOSKELETAL/RHEUMATOLOGICAL: Denies any joint pain, swelling, or any muscle pain. ENDOCRINE: Denies any polyuria or polydipsia. Active Medications Albuterol/Ipratropium (Duoneb 0.5 Mg-3 Mg/3 Ml Soln) 3 ml INHALATION RT-Q4H [facility] Last Admin: 01/02/19 07:48 Dose: 3 ml Documented by: Amlodipine Besylate (Norvasc) 5 mg PO DAILY [facility] Last Admin: 01/01/19 17:50 Dose: 5 mg Documented by: Aspirin (Aspirin) 81 mg PO DAILY [facility] Last Admin: 01/01/19 09:25 Dose: 81 mg Documented by: Atorvastatin Calcium (Lipitor) 40 mg PO HS [facility] Last Admin: 01/01/19 21:50 Dose: 40 mg Documented by: Donepezil HCl (Aricept) 5 mg PO HS [facility] Last Admin: 01/01/19 21:50 Dose: 5 mg Documented by: Famotidine (Pepcid) 20 mg PO DAILY [facility] Last Admin: 01/01/19 09:25 Dose: 20 mg Documented by: Ferrous Sulfate (Feosol) 325 mg PO DAILY [facility] Last Admin: 01/01/19 09:25 Dose: 325 mg Documented by: Heparin Sodium (Porcine) (Heparin) 0 unit IV PER PROTOCOL PRN; Protocol PRN Reason: Low PTT Last Admin: 01/02/19 08:44 Dose: 4,000 unit Documented by: Heparin Sodium/Sodium Chloride (25,000 unit/ Sodium Chloride) 250 mls @ 9.996 mls/hr IV .Q24H [facility]; Protocol Last Admin: 01/01/19 17:23 Dose: 10 units/kg/hr, 9.12 mls/hr Documented by: Insulin Aspart (Novolog) 0 unit SQ ACHS [facility]; Protocol Last Admin: 01/02/19 08:54 Dose: Not Given Documented by: Insulin Detemir (Levemir) 15 unit SQ BID@0700,2100 [facility] Last Admin: 01/01/19 21:51 Dose: 15 unit Documented by: Memantine (Namenda) 10 mg PO DAILY [facility] Last Admin: 01/01/19 09:25 Dose: 10 mg Documented by: Naloxone HCl (Narcan) 0.2 mg IV Q2M PRN PRN Reason: Opioid Reversal Nicotine (Habitrol 21mg/24hr Patch) 1 patch TRANSDERM DAILY [facility] Last Admin: 01/01/19 09:26 Dose: 1 patch Documented by: Sertraline HCl (Zoloft) 25 mg PO HS [facility] Last Admin: 01/01/19 21:50 Dose: 25 mg Documented by: Objective - Vital Signs Vital signs: Vital Signs Temp 99 F 01/02/19 00:00 Pulse 60 01/02/19 10:00 Resp 28 H 01/02/19 10:00 BP 155/73 01/02/19 10:00 Pulse Ox 100 01/02/19 10:00 Intake & Output 01/01/19 01/02/19 01/02/19 18:59 06:59 18:59 Intake Total 2010.592 200 Output Total 810 1445 150 Balance 1200.592 -1245 -150 Weight 93.9 kg Intake: IV 1200 200 Dextrose 5% in Water 1, 100 000 ml @ 100 mls/hr IV . [id number] [facility] with Sodium Bicarb (1 Meq/ml) 150 ml Rx#:[id number] Sodium Chloride 0.9% 1, 1100 200 000 ml @ 50 mls/hr IV . Q20H [facility] Rx#:[id number] Intake, IV Titration 90.592 Amount Heparin Sod,Pork in 0.45% 90.592 NaCl 25,000 unit In 0.45 % NaCl 1 250ml.bag @ 10. 96 UNITS/KG/HR 9.996 mls/ hr IV .Q24H [facility] Rx#: [id number] Oral 720 Output: Urine 810 1445 150 Other: Voiding Method Indwelling Catheter Indwelling Catheter - Exam -GENERAL: The patient is alert and oriented x2-[address] and time, oriented to person, not in any acute distress. Well developed, well nourished. HEENT: Pupils are round and equally reacting to light. EOMI. No scleral icterus. No conjunctival pallor. Normocephalic, atraumatic. No pharyngeal erythema. No thyromegaly. CARDIOVASCULAR: S1 and S2 present. No murmurs, rubs, or gallops. PULMONARY: Chest is clear to auscultation, no wheezing ABDOMEN: Soft, nontender, nondistended, normoactive bowel sounds. No palpable organomegaly. Abdominal hernia MUSCULOSKELETAL: No joint swelling or deformity. EXTREMITIES: No cyanosis, clubbing, or pedal edema. NEUROLOGICAL: Gross neurological examination did not reveal any focal deficits. SKIN: No rashes. No petechiae - Labs CBC & Chem 7: 01/02/19 04:33 01/02/19 04:33 Labs: Abnormal Lab Results - Last 24 Hours (Table) 01/01/19 01/01/19 01/01/19 Range/Units 13:07 16:39 16:40 RBC (4.30-5.90) m/uL Hgb (13.0-17.5) gm/dL Hct (39.0-53.0) % Neutrophils # (1.3-7.7) k/uL APTT 54.7 H (22.0-30.0) sec Chloride (98-107) mmol/L BUN (9-20) mg/dL Creatinine (0.66-1.25) mg/dL Glucose (74-99) mg/dL POC Glucose (mg/dL) 44 L 44 L (75-99) mg/dL 01/01/19 01/01/19 01/01/19 Range/Units 17:01 19:00 21:00 RBC (4.30-5.90) m/uL Hgb (13.0-17.5) gm/dL Hct (39.0-53.0) % Neutrophils # (1.3-7.7) k/uL APTT (22.0-30.0) sec Chloride (98-107) mmol/L BUN (9-20) mg/dL Creatinine (0.66-1.25) mg/dL Glucose (74-99) mg/dL POC Glucose (mg/dL) 60 L 175 H 177 H (75-99) mg/dL 01/02/19 01/02/19 01/02/19 Range/Units 04:33 04:33 04:33 RBC 3.48 L (4.30-5.90) m/uL Hgb 10.5 L (13.0-17.5) gm/dL Hct 31.9 L (39.0-53.0) % Neutrophils # 8.1 H (1.3-7.7) k/uL APTT 35.2 H (22.0-30.0) sec Chloride 108 H (98-107) mmol/L BUN 107 H* (9-20) mg/dL Creatinine 5.68 H (0.66-1.25) mg/dL Glucose 115 H (74-99) mg/dL POC Glucose (mg/dL) (75-99) mg/dL 01/02/19 Range/Units 06:52 RBC (4.30-5.90) m/uL Hgb (13.0-17.5) gm/dL Hct (39.0-53.0) % Neutrophils # (1.3-7.7) k/uL APTT (22.0-30.0) sec Chloride (98-107) mmol/L BUN (9-20) mg/dL Creatinine (0.66-1.25) mg/dL Glucose (74-99) mg/dL POC Glucose (mg/dL) 108 H (75-99) mg/dL Microbiology - Last 24 Hours (Table) 12/30/18 17:20 Urine Culture - Final Urine,Catheterized Assessment and Plan Assessment: Acute renal failure Hyperkalemia, resolved Metabolic encephalopathy, secondary to above. Resolved Chronic kidney disease, mostly diabetic nephropathy. Stage III Mild Acute COPD exacerbation. Resolved History of atrial fibrillation on anticoagulation Chronic congestive heart failure Status post pacemaker COPD, not acute exacerbation History of CVA/TIA Diabetes mellitus Guarded Hyperlipidemia Hypertension Chronic sleep apnea on CPAP/BiPAP Peripheral vascular disease Plan: This is a pleasant 73 years old male who presents with hyperkalemia and acute kidney injury. Continue with heparin drip. Follow-up potassium level and creatinine level. Follow-up recommendation from pulmonary and nephrology. Adjust medication for renal dose, stop sotalol, lower Levemir from 22 units to 15 units twice a day and insulin sliding scale hold Xarelto and metformin, Lasix. Labs and medication were reviewed.. Continue same treatment. Continue with s ymptomatic treatment. Resume home medication. Monitor lytes and vitals. DVT and GI prophylaxis. Further recommendations of the clinical course of the patient DVT prophylaxis: heparin drip GI Prophylaxis: Pepcid Prognosis is guarded
--- NOTE | 2019-01-02 11:01 | ECHOF ---
Referral Reason:chf MEASUREMENTS -------- HEIGHT: 180.3 cm WEIGHT: 93.9 kg BP: 135/66 RVIDd: 3.6 cm (< 3.3) IVSd: 1.7 cm (0.6 - 1.1) LVIDd: 4.0 cm (3.9 - 5.3) LVPWd: 1.4 cm (0.6 - 1.1) IVSs: 2.0 cm LVIDs: 3.2 cm LVPWs: 1.5 cm LA Diam: 3.5 cm (2.7 - 3.8) LAESV Index (A-L): 37.68 ml/m Ao Diam: 3.9 cm (2.0 - 3.7) AV Cusp: 2.2 cm (1.5 - 2.6) MV EXCURSION: 8.677 mm (> 18.000) MV EF SLOPE: 37 mm/s (70 - 150) EPSS: 1.7 cm MV E Mono: 1.42 m/s MV DecT: 189 ms MV A Mono: 1.05 m/s MV E/A Ratio: 1.36 RAP: 15.00 mmHg RVSP: 68.45 mmHg TAPSE: 20.04 mm FINDINGS -------- Pacerwire seen in RV and RA. This was a technically adequate study. The left ventricular size is normal. There is moderate concentric left ventricular hypertrophy. O verall left ventricular systolic function is moderate-severely impaired with, an EF between 30 - 35 % . Basal inferior LV wall motion is akinetic. Mid lateral LV wall motion is akinetic. Mid infe rior LV wall motion is akinetic. Apical inferior LV wall motion is akinetic. The right ventricle is mildly enlarged. LA is moderately dilated 34-39 ml/m2 The right atrial size is normal. Interatrial and interventricular septum intact. There is mild aortic valve sclerosis. Mild mitral annular calcification present. Moderate mitral regurgitation is present. [id number] tricuspid regurgitation present. There is severe pulmonary hypertension. The rig ht ventricular systolic pressure, as measured by Doppler, is 68.45mmHg. The pulmonic valve was not well visualized. There is no pulmonic regurgitation present. The aortic root is dilated measuring 3.9cm. The inferior vena cava is dilated with poor inspiratory collapse which is consistent with estimated r ight atrial pressure of 15 mmHg. There is no pericardial effusion. CONCLUSIONS -------- 1. Pacerwire seen in RV and RA. 2. This was a technically adequate study. 3. The left ventricular size is normal. 4. There is moderate concentric left ventricular hypertrophy. 5. Overall left ventricular systolic function is moderate-severely impaired with, an EF between 30 - 35 %. 6. Basal inferior LV wall motion is akinetic. 7. Mid lateral LV wall motion is akinetic. 8. Mid inferior LV wall motion is akinetic. 9. Apical inferior LV wall motion is akinetic. 10. The right ventricle is mildly enlarged. 11. LA is moderately dilated 34-39 ml/m2 12. There is mild aortic valve sclerosis. 13. Mild mitral annular calcification present. 14. Moderate mitral regurgitation is present. 15. [id number] tricuspid regurgitation present. 16. There is severe pulmonary hypertension. 17. The pulmonic valve was not well visualized. 18. The aortic root is dilated measuring 3.9cm. 19. The inferior vena cava is dilated with poor inspiratory collapse which is consistent with estimat ed right atrial pressure of 15 mmHg. 20. There is no pericardial effusion. GROCERY CLERK SELLING: Sarika Elliott RDCS
[2019-01-02] MEDS: INSULIN DETEMIR (LEVEMIR) 100 UNIT/ML SYR SQ SCH ×2 (11:12→21:10)
--- NOTE | 2019-01-02 11:23 | P.PN ---
Subjective Patient is seen in follow-up for acute kidney injury on chronic kidney disease. Renal function is mildly improved. Creatinine 5.68 today. Last night the patient became short of breath and confused. He received 2 doses of 80 mg of IV Lasix. Urine output is about 100 mL an hour. He is currently on BiPAP. present at bedside. Vital signs are stable. General: The patient appeared well nourished and normally developed. HEENT: Head exam is unremarkable. Neck is without jugular venous distension. LUNGS: Breath sounds decreased. HEART: Rate and Rhythm are regular. First and second heart sounds normal. No murmurs, rubs or gallops. ABDOMEN: Abdominal exam reveals normal bowel sounds. Non-tender and non- distended. No evidence of peritonitis. EXTREMITITES: No clubbing, cyanosis, or edema. Objective - Vital Signs Vital signs: Vital Signs Temp 99 F 01/02/19 00:00 Pulse 60 01/02/19 10:00 Resp 28 H 01/02/19 10:00 BP 155/73 01/02/19 10:00 Pulse Ox 100 01/02/19 10:00 Intake & Output 01/01/19 01/02/19 01/02/19 18:59 06:59 18:59 Intake Total 2010.592 200 Output Total 810 1445 600 Balance 1200.592 -1245 -600 Weight 93.9 kg 91.1 kg Intake: IV 1200 200 Dextrose 5% in Water 1, 100 000 ml @ 100 mls/hr IV . [id number] VINCENT with Sodium Bicarb (1 Meq/ml) 150 ml Rx#:[id number] Sodium Chloride 0.9% 1, 1100 200 000 ml @ 50 mls/hr IV . Q20H VINCENT Rx#:[id number] Intake, IV Titration 90.592 Amount Heparin Sod,Pork in 0.45% 90.592 NaCl 25,000 unit In 0.45 % NaCl 1 250ml.bag @ 10. 96 UNITS/KG/HR 9.996 mls/ hr IV .Q24H VINCENT Rx#: [id number] Oral 720 Output: Urine 810 1445 600 Other: Voiding Method Indwelling Catheter Indwelling Catheter - Labs CBC & Chem 7: 01/02/19 04:33 01/02/19 04:33 Labs: Abnormal Lab Results - Last 24 Hours (Table) 01/01/19 01/01/19 01/01/19 Range/Units 13:07 16:39 16:40 RBC (4.30-5.90) m/uL Hgb (13.0-17.5) gm/dL Hct (39.0-53.0) % Neutrophils # (1.3-7.7) k/uL APTT 54.7 H (22.0-30.0) sec Chloride (98-107) mmol/L BUN (9-20) mg/dL Creatinine (0.66-1.25) mg/dL Glucose (74-99) mg/dL POC Glucose (mg/dL) 44 L 44 L (75-99) mg/dL 01/01/19 01/01/19 01/01/19 Range/Units 17:01 19:00 21:00 RBC (4.30-5.90) m/uL Hgb (13.0-17.5) gm/dL Hct (39.0-53.0) % Neutrophils # (1.3-7.7) k/uL APTT (22.0-30.0) sec Chloride (98-107) mmol/L BUN (9-20) mg/dL Creatinine (0.66-1.25) mg/dL Glucose (74-99) mg/dL POC Glucose (mg/dL) 60 L 175 H 177 H (75-99) mg/dL 01/02/19 01/02/19 01/02/19 Range/Units 04:33 04:33 04:33 RBC 3.48 L (4.30-5.90) m/uL Hgb 10.5 L (13.0-17.5) gm/dL Hct 31.9 L (39.0-53.0) % Neutrophils # 8.1 H (1.3-7.7) k/uL APTT 35.2 H (22.0-30.0) sec Chloride 108 H (98-107) mmol/L BUN 107 H* (9-20) mg/dL Creatinine 5.68 H (0.66-1.25) mg/dL Glucose 115 H (74-99) mg/dL POC Glucose (mg/dL) (75-99) mg/dL 01/02/19 Range/Units 06:52 RBC (4.30-5.90) m/uL Hgb (13.0-17.5) gm/dL Hct (39.0-53.0) % Neutrophils # (1.3-7.7) k/uL APTT (22.0-30.0) sec Chloride (98-107) mmol/L BUN (9-20) mg/dL Creatinine (0.66-1.25) mg/dL Glucose (74-99) mg/dL POC Glucose (mg/dL) 108 H (75-99) mg/dL Assessment and Plan Plan: Assessment: 1. Acute kidney injury secondary to ischemic ATN secondary to hypotension. Renal function slightly better. Creatinine 5.68. 2. Dyspnea secondary to volume overload. 3. Hyperkalemia secondary to acute kidney injury, metabolic acidosis improved with medical management. 4. Chronic kidney disease stage III secondary to diabetic kidney disease with baseline creatinine in the range of 1.6-1.9. 5. Diabetes mellitus. Plan: With significant impairment in renal function and volume overload, I will initiate renal replacement therapy. Consult vascular surgery for dialysis catheter placement. Plan for first treatment of hemodialysis today and second treatment tomorrow. Will try for 2-3 L ultrafiltration. Add Lasix 80 mg IV twice daily. Continue to monitor renal function and urine output. Discussed with the patient and his present at bedside. They're in agreement.
[2019-01-02 11:57] LABS: Glucose,Whole Blood 105 mg/dL (75-99)
[2019-01-02] MEDS: FERROUS SULFATE 325 MG TAB PO SCH (12:08)
[2019-01-02] MEDS: ASPIRIN 81 MG PO SCH (12:10)
[2019-01-02] MEDS: amLODIPine 5 MG TAB PO SCH (12:11)
[2019-01-02] MEDS: FAMOTIDINE 20 MG TAB PO SCH (12:11)
[2019-01-02] MEDS: MEMANTINE 10 MG TAB PO SCH (12:12)
--- NOTE | 2019-01-02 13:33 | P.PN ---
Subjective Progress Note Date: 01/02/19 Principal diagnosis: Acute on chronic kidney injury, history of chronic kidney disease stage III This is a 73-year-old male patient came into the ED because of generalized weakness,, altered mentation, dehydration, and sepsis. The patient Has been feeling weak for the past 2 weeks and significantly got worse over the past 2-3 days. . Over the past 2-3 days, the patient got worse, unable to get up, unable to walk. The patient had seen his primary care physician and lab work was ordered on outpatient basis. The labs were significantly abnormal and the patient had an acute kidney injury and acute hyperkalemia and for that reason the patient was asked to come in immediately to the emergency department. The patient denied having any chest pain. No significant cough sputum production chest that is so wheezing. No nausea or vomiting. Denies having any dysuria frequency or urgency. He had diminished urine output. In the ED, and a temperature of 97.3. He was hemodynamically stable with a BP of 136/66 and pulse ox of 99% on room air. The patient was in, was at 6 hemoglobin 11.0. He was an acute kidney injury with a BUN of 134 and a potassium level of 7.7 and a creatinine of 6.8. Serum bicarb was 14. The anion gap was 14. The patient had an EKG that showed no peaked T waves and there was no EKG is acute hyperkalemia. The patient was started on IV fluids. He was given D50 insulin and he was given also bicarb. He was asked to be moved to the intensive care unit for further evaluation. Along with fluid resuscitation and treatment, potassium level came down to 4.5. Serum bicarb is up to 24. Creatinine is down to 4.9. Calcium level is at 6.4. LFTs continue to be within normal limits. The patient is on D5 with 3 A of bicarb at the rate of 80 mL an hour. The patient is known to multiple medical problems and comorbidities. The patient was in the hospital back in 11/08/2018 for an acute kidney injury related to diarrhea and gastroenteritis. At that time he was treated and he was discharged without any major complications. His baseline creatinine was down to 1.9 on 11/16/2018. The patient has COPD stage III. The patient has history of chronic atrial fibrillation on Xarelto. He also has chronic congestion heart failure with mild impairment of LV function and ejection fraction of 40-45% and he is also diabetic with known history of peripheral vascular disease, hypertension and hyperlipidemia and previous history of CVA back in 2007. He has had previous UTI back in 2018 with E. coli. He has carotid artery disease and undergone endarterectomy on the left. On 12/31/2008 Seeing this patient for a follow-up. Overall, the patient is still stable. The patient was resuscitated IV fluids and there was some improvement in the labs which I think it's an erroneous recording as the patient's subsequent blood work that was obtained this morning showed significant abnormalities with ongoing elevation the potassium and creatinine being still elevated. The patient has chronic stage III kidney disease with a creatinine ranging between 1.6 and 1.9. He comes in with an acute kidney injury. This is probably related to medications and diminished oral intake. The patient is still receiving IV fluids. I switched him today bicarb infusion this morning. His hyperkalemia was treated with a potassium lowering cocktail where he was given bicarb and insulin. He is producing urine. Ultrasound the kidneys shows no evidence of any obstruction and there is no evidence of any hydronephrosis. The patient is resting comfortably in bed. He is afebrile for now. Urinalysis was negative for any acute infection. He was taken off anticoagulation. He is on Levemir insulin 50 units twice a day along with fine scale coverage for blood sugar control. He is also on a bicarb infusion which is running at 100 mL an hour. On 01/01/2019, the patient remains in intensive care unit. He has no specific complaints. Potassium level is normalized. Serum bicarb level is improved. Nevertheless, there is no improvement in creatinine which remains quite elevated at 6.08. BUN is 119. No significant alteration in mental status compared to yesterday. No signs of any fluid overload. He is producing urine output and the neck fluid balance the past 24 hours has been +784 mL. His urine output was 1700 over the past 24 hours. Nephritis on the case. Dialysis is being contemplated on this patient. Ultrasound the kidneys showed no evidence of any hydronephrosis. The patient off the bicarb drip and put him on a normal saline infusion. He is off the Rey inhibitors. He is also off diuretics for now. Xarelto is also on hold based on his underlying renal failure and the patient is receiving IV heparin accordingly. Reevaluated today on 01/02/2019, patient is about the same, slight improvement in his renal functioning is noted, creatinine is 5.68 today. Continues to have good urine output, patient was seen by nephrology again today, and the plan is to proceed with vascular surgery consultation for catheter placement and eventually hemodialysis. Chest x-ray is showing evidence of congestive heart failure/pulmonary edema secondary to acute renal failure. Patient remains on diuretics. Echocardiogram showed impaired left ventricle with ejection fraction of 30-55%. BUN today is 107 creatinine 5.68 CBC is relatively normal, hemoglobin is 10.5. Patient denies being short of breath, however he is on BiPAP, IPAP of 14 EPAP of 6 FiO2 is 40% Objective - Vital Signs Vital signs: Vital Signs Temp 98.3 F 01/02/19 12:00 Pulse 75 01/02/19 13:00 Resp 13 01/02/19 13:00 BP 152/81 01/02/19 13:00 Pulse Ox 95 01/02/19 13:00 Intake & Output 01/01/19 01/02/19 01/02/19 18:59 06:59 18:59 Intake Total 2010.592 200 Output Total 810 1445 1025 Balance 1200.592 -1245 -1025 Weight 93.9 kg 91.1 kg Intake: IV 1200 200 Dextrose 5% in Water 1, 100 000 ml @ 100 mls/hr IV . [id number] VINCENT with Sodium Bicarb (1 Meq/ml) 150 ml Rx#:[id number] Sodium Chloride 0.9% 1, 1100 200 000 ml @ 50 mls/hr IV . Q20H VINCENT Rx#:[id number] Intake, IV Titration 90.592 Amount Heparin Sod,Pork in 0.45% 90.592 NaCl 25,000 unit In 0.45 % NaCl 1 250ml.bag @ 10. 96 UNITS/KG/HR 9.996 mls/ hr IV .Q24H VINCENT Rx#: [id number] Oral 720 Output: Urine 810 1445 1025 Other: Voiding Method Indwelling Catheter Indwelling Catheter - Exam Physical Exam: Revealed 73-year-old white male in no distress, Head: Atraumatic, normocephalic. HEENT:[Neck is supple.] [No neck masses.] [No thyromegaly.] [No JVD.] Chest: [Crackles and rhonchi noted bilaterally. Symmetrical chest expansion. Cardiac Exam: [Normal S1 and S2, no S3 gallop, 2/6 systolic murmur thought the precordium.] Abdomen: [Soft, nontender, no megaly, no rebound, no guarding, normal bowel sounds.] Extremities: [No clubbing, no edema, no cyanosis.] Neurological Exam: [No focal neurologic deficit.] Alert and oriented 3. Psychiatric: Normal mood affect and normal mental status examination. Skin: No rashes. Lymphatics: No lymphadenopathy - Labs CBC & Chem 7: 01/02/19 04:33 01/02/19 04:33 Labs: Abnormal Lab Results - Last 24 Hours (Table) 01/01/19 01/01/19 01/01/19 Range/Units 13:07 16:39 16:40 RBC (4.30-5.90) m/uL Hgb (13.0-17.5) gm/dL Hct (39.0-53.0) % Neutrophils # (1.3-7.7) k/uL APTT 54.7 H (22.0-30.0) sec Chloride (98-107) mmol/L BUN (9-20) mg/dL Creatinine (0.66-1.25) mg/dL Glucose (74-99) mg/dL POC Glucose (mg/dL) 44 L 44 L (75-99) mg/dL 01/01/19 01/01/19 01/01/19 Range/Units 17:01 19:00 21:00 RBC (4.30-5.90) m/uL Hgb (13.0-17.5) gm/dL Hct (39.0-53.0) % Neutrophils # (1.3-7.7) k/uL APTT (22.0-30.0) sec Chloride (98-107) mmol/L BUN (9-20) mg/dL Creatinine (0.66-1.25) mg/dL Glucose (74-99) mg/dL POC Glucose (mg/dL) 60 L 175 H 177 H (75-99) mg/dL 01/02/19 01/02/19 01/02/19 Range/Units 04:33 04:33 04:33 RBC 3.48 L (4.30-5.90) m/uL Hgb 10.5 L (13.0-17.5) gm/dL Hct 31.9 L (39.0-53.0) % Neutrophils # 8.1 H (1.3-7.7) k/uL APTT 35.2 H (22.0-30.0) sec Chloride 108 H (98-107) mmol/L BUN 107 H* (9-20) mg/dL Creatinine 5.68 H (0.66-1.25) mg/dL Glucose 115 H (74-99) mg/dL POC Glucose (mg/dL) (75-99) mg/dL 01/02/19 01/02/19 Range/Units 06:52 11:42 RBC (4.30-5.90) m/uL Hgb (13.0-17.5) gm/dL Hct (39.0-53.0) % Neutrophils # (1.3-7.7) k/uL APTT (22.0-30.0) sec Chloride (98-107) mmol/L BUN (9-20) mg/dL Creatinine (0.66-1.25) mg/dL Glucose (74-99) mg/dL POC Glucose (mg/dL) 108 H 105 H (75-99) mg/dL Assessment and Plan Assessment: Impression: 1 acute hypoxic respiratory failure secondary to pulmonary edema secondary to LV dysfunction/systolic dysfunction and fluid overload secondary to acute on chronic renal failure. 2 acute kidney injury on top of chronic stage III chronic kidney disease 3 electrolyte imbalance and metabolic acidosis with hyperkalemia secondary to acute renal failure/nonoliguric. 4 acute metabolic acidosis, resolved. 5 history of COPD 6 systolic heart failure and LV dysfunction 7 coronary artery disease 8 type 2 diabetes 9 hyperlipidemia 11 history of CVA back in 2006 12 history of atrial fibrillation currently AV paced. 13 peripheral vessel occlusive disease involving lower extremities. 14 obstructive sleep apnea noncompliant with CPAP. 15 history of hypertension. Recommendation: Continue treatment plan as per nephrology, continue heparin and keeps Xarelto on hold, patient will likely require a dialysis catheter to be placed today. Avoid nephrotoxic agents. Start hemodialysis as soon as the catheter is placed by vascular surgery. We'll continue to monitor in the ICU. Patient will likely show significant improvement once hemodialysis is started. We'll continue to follow. And a new GI and DVT prophylaxis Time with Patient: Less than 30
--- NOTE | 2019-01-02 14:00 | PCN ---
PROCEDURE NOTE PREOPERATIVE DIAGNOSE: Acute chronic failure. PROCEDURE: Placement of dialysis catheter, ultrasound-guided right femoral approach. The patient was seen in his room. Right groin was prepped and draped in a sterile manner. 1% lidocaine was infiltrated, ultrasound-guided micropuncture introduced right femoral vein. Micropuncture guidewire was passed and 4-Belgian dilator advanced on top of the guidewire. After that, we passed a regular guidewire and dilator was advanced and dialysis catheter advanced on top of the guidewire. The guidewire was removed, flushed with heparin, saline and hep-locked and secured with 3-0 nylon. Patient tolerated the procedure well. MMODL / IJN: [id number] /
--- NOTE | 2019-01-02 15:06 | CONS ---
DATE OF CONSULTATION: 01/02/2019 Patient has history of acute kidney injury secondary to ischemic ATN, secondary to hypotension. Creatinine is 5.68. I was consulted for placement of a dialysis catheter. Patient has history of dyspnea secondary to volume overload. The patient also has hyperkalemia secondary to acute kidney injury. MEDICAL HISTORY: Diabetes, chronic renal failure. Patient was seen in the intensive care unit. NECK: Supple. TRACHEA: Central. A few lung crackles on the right side. Patient's abdomen is soft. Femorals are palpable, bilateral. PLAN: Placement of the dialysis catheter. Risks and complications discussed. MMODL / IJN: [id number] / MTDD
[2019-01-02 17:58] LABS: Glucose,Whole Blood 331 mg/dL (75-99)
[2019-01-02 17:58] LABS: Glucose,Whole Blood 329 mg/dL (75-99)
[2019-01-02] MEDS: SODIUM CHLORIDE 0.9% 1,000 ML IV SCH (19:21)
[2019-01-02 20:15] LABS: Hepatitis B Surface AB- Quant 3.5 mIU/mL; Hepatitis B Surface Antibody Non-Reactive (Non-Reactive); Hepatitis B Surface Antigen Non-Reactive (Non-Reactive)
[2019-01-02 21:01] LABS: Glucose,Whole Blood 301 mg/dL (75-99)
[2019-01-02] MEDS: HEPARIN SOD,PORK IN 0.45% NACL 25,000 UNIT in 0.45% NACL 1 250ML.BAG IV SCH (21:08)
[2019-01-02] MEDS: FUROSEMIDE 10 MG/ML 10 ML VIAL IV SCH (21:12)
[2019-01-02] MEDS: SERTRALINE 25 MG TAB PO SCH (21:12)
[2019-01-02] MEDS: ATORVASTATIN 40 MG TAB PO SCH (21:14)
[2019-01-02] MEDS: DONEPEZIL 5 MG TAB PO SCH (21:40)
[2019-01-03] MEDS: IPRATROPIUM-ALBUTEROL 3 ML NEB INHALATION SCH ×7 (00:02→23:07)
[2019-01-03 05:10] LABS: Basophils % (A) 0 %; Eosinophils # (A) 0.2 k/uL (0-0.7); Eosinophils % (A) 2 %; HCT 28.5 % (39.0-53.0); HGB 9.6 gm/dL (13.0-17.5); Lymphocytes # (A) 1.2 k/uL (1.0-4.8); Lymphocytes % (A) 15 %; MCH 30.7 pg (25.0-35.0); MCHC 33.8 g/dL (31.0-37.0); MCV 90.7 fL (80.0-100.0); Mean Platelet Volume 6.2; Monocytes # (A) 0.3 k/uL (0-1.0); Monocytes % (A) 4 %; Neutrophils # (A) 6.2 k/uL (1.3-7.7); Neutrophils % (A) 79 %; Platelet Count 171 k/uL (150-450); RBC 3.14 m/uL (4.30-5.90); RDW 12.9 % (11.5-15.5); WBC 7.9 k/uL (3.8-10.6)
[2019-01-03 05:53] LABS: Calcium 8.3 mg/dL (8.4-10.2); Potassium 3.9 mmol/L (3.5-5.1)
[2019-01-03] MEDS: INSULIN ASPART (NovoLOG) 100 UNIT/ML VIAL SQ SCH ×4 (07:02→20:41)
[2019-01-03] MEDS: INSULIN DETEMIR (LEVEMIR) 100 UNIT/ML SYR SQ SCH ×2 (07:02→20:41)
[2019-01-03 07:03] LABS: Glucose,Whole Blood 211 mg/dL (75-99)
--- NOTE | 2019-01-03 10:00 | P.PN ---
Subjective This is a pleasant 73 years old male with past medical history of heart failure, atrial fibrillation, status post pacemaker, COPD, CVA/TIA, diabetes mellitus, GERD, hyperlipidemia, hypertension, sleep apnea on CPAP/BiPAP, peripheral vascular disease. Patient feels weak and poor historian, information was taken with the help with the at bedside. As per patient was feeling weak for the last 2 weeks, which significantly got worse over the last 2-3 days, associated with low blood pressure about 52/30s 2 weeks ago when the called her PCP and recommended hydration, as per had blood pressure for the last 2 days was improved up to 109/60s, also patient was complaining of from loose bowel movement for the last 2 to 3 days at least one loose bowel movement per day , associated with vomiting for 1 week. However patient denies abdominal pain. Patient was also having poor appetite and decreased oral intake. For the last 2-3 days patient needed help to walk and get up. She called his PCP and went to see him Dr. Zarco/his nurse practitioner Katiana, and his blood work came back with worsening creatinine and high potassium, he got the call today to come to the emergency room by his PCP office Patient also is heavy smoker about 1 pack per day, occasional alcohol but no illicit drugs. He has been having some dyspnea with chronic cough and recent worsening, and sure about making any phlegm but as per he was not. Patient denies chest pain As per patient was on sotalol and coreg both at home, also he was on a rmodafinil for sleep problem but he was not taking it over the last few weeks. On admission vitals stable, labs showing worsening creatinine from 1.6-2.4, up to 6.8. Potassium is elevated at 7.7, ever enzymes not elevated. Hemoglobin is stable at 11, rest of CBC is unremarkable. 12/31/2018 Patient is awake and alert with no chest pain or dyspnea. No coughing. He still feels generally weak. Not complaining of from pain. No urinary complaints, his blood pressure is 90/34, heart rate is 66. his sotalol was stopped. His potassium this morning is 7.2 and 6.5, creatinine is persistently elevated at 6.4 and 6.5. Sugar is on the high side, we going to increase his Levemir to 15 units twice a day. Patient has normal renal ultrasound. Urine culture are still pending. Nephrology and pulmonary team input is appreciated. Patient to continue on bicarbonate drip. Nephrology team are considering renal replacement therapy and hemodialysis. Eliquis was stopped upon recommendation of presales engineer for patient might need a renal catheter. And instead we will put the patient on subcu heparin. Medial drain is added for blood pressure support 01/01/2019 Patient remains in the ICU with no new complaints. He is not in distress. No chest pain or dyspnea. He still generally weak. Vital signs stable. Creatinine is 6.0 today, patient remains on heparin drip as his Eliquis was held for possible need for hemodialysis. Change bicarb drip to normal saline as per presales engineer recommendation. No need for renal replacement therapy today as per presales engineer. We'll keep monitoring 01/02/2019 Patient remains in the ICU, patient clinically the same with no dyspnea or chest pain. Patient is hemodynamically stable with blood pressure 155/73 cartridges low 60s. Coreg and sotalol remain on hold. His creatinine slightly came down today from 6.0 to 5.6. Potassium 4.2. Sugar is controlled today 108-177, patient remains on Levemir 15 units twice a day, liver enzymes were not baldomero vated. Final urine culture showing no growth. On admission his Xarelto was stopped and patient was placed on heparin drip, For his history of atrial fibrillation, Patient is followed closely by pulmonary and nephrology teams. 01/03/2019 Patient a week with no new complaint, he is generally weak with some tachypnea. No cough and no chest pain. Patient got hemodialysis yesterday and 2 L were t aken out, and this morning he is under going to same with hemodialysis and 2 L of fluids are removed. Speech and swallow evaluation has been consulted. Vitals are stable. Labs looked stable with creatinine 4.8, hemoglobin stable while on heparin drip., Sugar is controlled. This morning is still elevated. Patient was also placed on Lasix 80 mg twice daily. Is currently on Levemir 12 units twice a day and sliding scale. His blood pressure 118/69 while off sotalol and Coreg which are held on admission Review of systems CONSTITUTIONAL: No fever, no malaise, no fatigue. HEENT: No recent visual problems or hearing problems. Denied any sore throat. CARDIOVASCULAR: No orthopnea, PND, no palpitations, no syncope. PULMONARY: no cough, no hemoptysis. GASTROINTESTINAL: No diarrhea, no nausea, no vomiting, no abdominal pain. Normoactive bowel sounds. NEUROLOGICAL: No headaches, no weakness, no numbness. HEMATOLOGICAL: Denies any bleeding or petechiae. GENITOURINARY: Denies any burning micturition, frequency, or urgency. MUSCULOSKELETAL/RHEUMATOLOGICAL: Denies any joint pain, swelling, or any muscle pain. ENDOCRINE: Denies any polyuria or polydipsia. Active Medications Albuterol/Ipratropium (Duoneb 0.5 Mg-3 Mg/3 Ml Soln) 3 ml INHALATION RT-Q4H [facility] Last Admin: 01/03/19 09:40 Dose: Not Given Documented by: Amlodipine Besylate (Norvasc) 5 mg PO DAILY [facility] Last Admin: 01/02/19 12:11 Dose: 5 mg Documented by: Aspirin (Aspirin) 81 mg PO DAILY [facility] Last Admin: 01/02/19 12:10 Dose: 81 mg Documented by: Atorvastatin Calcium (Lipitor) 40 mg PO HS [facility] Last Admin: 01/02/19 21:14 Dose: 40 mg Documented by: Donepezil HCl (Aricept) 5 mg PO [facility] Last Admin: 01/02/19 21:40 Dose: 5 mg Documented by: Famotidine (Pepcid) 20 mg PO DAILY [facility] Last Admin: 01/02/19 12:11 Dose: 20 mg Documented by: Ferrous Sulfate (Feosol) 325 mg PO DAILY [facility] Last Admin: 01/02/19 12:08 Dose: 325 mg Documented by: Furosemide (Lasix) 80 mg IV Q12HR [facility] Last Admin: 01/02/19 21:12 Dose: 80 mg Documented by: Heparin Sodium (Porcine) (Heparin) 0 unit IV PER PROTOCOL PRN; Protocol PRN Reason: Low PTT Last Admin: 01/02/19 08:44 Dose: 4,000 unit Documented by: Heparin Sodium/Sodium Chloride (25,000 unit/ Sodium Chloride) 250 mls @ 9.996 mls/hr IV .Q24H [facility]; Protocol Last Admin: 01/02/19 21:08 Dose: 1,100 units/kg/hr, 1,003.2 mls/hr Documented by: Insulin Aspart (Novolog) 0 unit SQ ACHS [facility]; Protocol Last Admin: 10/01/19 07:02 Dose: 3 unit Documented by: Insulin Detemir (Levemir) 12 unit SQ BID@0700,2100 [facility] Last Admin: 01/03/19 07:02 Dose: 12 unit Documented by: Memantine (Namenda) 10 mg PO DAILY [facility] Last Admin: 01/02/19 12:12 Dose: 10 mg Documented by: Naloxone HCl (Narcan) 0.2 mg IV Q2M PRN PRN Reason: Opioid Reversal Nicotine (Habitrol 21mg/24hr Patch) 1 patch TRANSDERM DAILY [facility] Last Admin: 01/02/19 10:21 Dose: 1 patch Documented by: Sertraline HCl (Zoloft) 25 mg PO HS [facility] Last Admin: 01/02/19 21:12 Dose: 25 mg Documented by: Objective - Vital Signs Vital signs: Vital Signs Temp 97.8 F 01/03/19 09:00 Pulse 67 01/03/19 09:00 Resp 21 01/03/19 09:00 BP 118/69 01/03/19 09:00 Pulse Ox 94 L 01/03/19 09:40 Intake & Output 01/02/19 01/03/19 01/03/19 18:59 06:59 18:59 Intake Total 250.000 120 Output Total 1495 3125 375 Balance -1245.000 -3005 -375 Weight 88.1 kg Intake: Intake, IV Titration 250.000 Amount Heparin Sod,Pork in 0.45% 250.000 NaCl 25,000 unit In 0.45 % NaCl 1 250ml.bag @ 10. 96 UNITS/KG/HR 9.996 mls/ hr IV .Q24H [facility] Rx#: [id number] Oral 120 Output: Urine 1495 1125 375 Hemodialysis 2000 Other: Voiding Method Indwelling Catheter Indwelling Catheter Indwelling Catheter - Exam -GENERAL: The patient is alert and oriented x2-[address] and time, oriented to person, not in any acute distress. Well developed, well nourished. HEENT: Pupils are round and equally reacting to light. EOMI. No scleral icterus. No conjunctival pallor. Normocephalic, atraumatic. No pharyngeal erythema. No thyromegaly. CARDIOVASCULAR: S1 and S2 present. No murmurs, rubs, or gallops. PULMONARY: Chest is clear to auscultation, no wheezing ABDOMEN: Soft, nontender, nondistended, normoactive bowel sounds. No palpable organomegaly. Abdominal hernia MUSCULOSKELETAL: No joint swelling or deformity. EXTREMITIES: No cyanosis, clubbing, or pedal edema. NEUROLOGICAL: Gross neurological examination did not reveal any focal deficits. SKIN: No rashes. No petechiae - Labs CBC & Chem 7: 01/03/19 04:56 01/03/19 04:56 Labs: Abnormal Lab Results - Last 24 Hours (Table) 01/02/19 01/02/19 01/02/19 Range/Units 11:42 15:02 17:19 RBC (4.30-5.90) m/uL Hgb (13.0-17.5) gm/dL Hct (39.0-53.0) % APTT 70.3 H (22.0-30.0) sec BUN (9-20) mg/dL Creatinine (0.66-1.25) mg/dL Glucose (74-99) mg/dL POC Glucose (mg/dL) 105 H 331 H (75-99) mg/dL Calcium (8.4-10.2) mg/dL 01/02/19 01/02/19 01/03/19 Range/Units 17:20 20:57 04:56 RBC 3.14 L (4.30-5.90) m/uL Hgb 9.6 L (13.0-17.5) gm/dL Hct 28.5 L (39.0-53.0) % APTT (22.0-30.0) sec BUN (9-20) mg/dL Creatinine (0.66-1.25) mg/dL Glucose (74-99) mg/dL POC Glucose (mg/dL) 329 H 301 H (75-99) mg/dL Calcium (8.4-10.2) mg/dL 01/03/19 01/03/19 01/03/19 Range/Units 04:56 04:56 06:59 RBC (4.30-5.90) m/uL Hgb (13.0-17.5) gm/dL Hct (39.0-53.0) % APTT 56.2 H (22.0-30.0) sec BUN 86 H (9-20) mg/dL Creatinine 4.84 H (0.66-1.25) mg/dL Glucose 221 H (74-99) mg/dL POC Glucose (mg/dL) 211 H (75-99) mg/dL Calcium 8.3 L (8.4-10.2) mg/dL Assessment and Plan Assessment: Acute renal failure, needing hemodialysis Acute on chronic systolic heart failure with ejection fracture 30-35% with possi ble diastolic component Hyperkalemia, resolved Metabolic encephalopathy, secondary to above. Resolved Chronic kidney disease, mostly diabetic nephropathy. Stage III Mild Acute COPD exacerbation. Resolved History of atrial fibrillation on anticoagulation Chronic congestive heart failure Status post pacemaker COPD, not acute exacerbation History of CVA/TIA Diabetes mellitus Guarded Hyperlipidemia Hypertension Chronic sleep apnea on CPAP/BiPAP Peripheral vascular disease Plan: This is a pleasant 73 years old male who presents with hyperkalemia and acute kidney injury. Continue with heparin drip. Follow-up potassium level and creatinine level. Follow-up recommendation from pulmonary and nephrology. Continue with hemodialysis as per nephrology recommendations Adjust medication for renal dose, stop sotalol, lower Levemir from 22 units to 15 units twice a day and insulin sliding scale hold Xarelto and metformin, Lasix. Labs and medication were reviewed.. Continue same treatment. Continue with symptomatic treatment. Resume home medication. Monitor lytes and vitals. DVT and GI prophylaxis. Further recommendations of the clinical course of the patient DVT prophylaxis: heparin drip GI Prophylaxis: Pepcid Prognosis is guarded
[2019-01-03] MEDS: FAMOTIDINE 20 MG TAB PO SCH (10:51)
[2019-01-03] MEDS: NICOTINE 21MG/24HR PATCH TRANSDERM SCH (10:51)
[2019-01-03] MEDS: MEMANTINE 10 MG TAB PO SCH (10:51)
[2019-01-03] MEDS: FERROUS SULFATE 325 MG TAB PO SCH (10:51)
--- NOTE | 2019-01-03 11:01 | XR ---
EXAMINATION TYPE: XR chest 1V portable DATE OF EXAM: 01/03/2019 COMPARISON: 01/02/2019 INDICATION: Pulmonary edema TECHNIQUE: Single frontal view of the chest is obtained. FINDINGS: The heart size is normal. The pulmonary vasculature is normal. There is mild perihilar increased infiltrates with greater infiltrate extending into the left lower l obe. Correlate for pulmonary edema. Atelectasis and pneumonia should be considered. Electronic device overlies left chest. IMPRESSION: 1. Worsening left lower lobe infiltrate. Correlate for atypical pulmonary edema atelectasis or pneumo damon. Continued follow-up is recommended.
[2019-01-03] MEDS: amLODIPine 5 MG TAB PO SCH (11:11)
[2019-01-03] MEDS: ASPIRIN 81 MG PO SCH (11:12)
[2019-01-03] MEDS ORDERED: RIVAROXABAN 20 MG TAB PO SCH (11:45)
[2019-01-03] MEDS: FUROSEMIDE 10 MG/ML 10 ML VIAL IV SCH ×2 (11:46→20:50)
[2019-01-03 12:07] LABS: Glucose,Whole Blood 121 mg/dL (75-99)
--- NOTE | 2019-01-03 15:09 | P.PN ---
Subjective Progress Note Date: 01/03/19 Principal diagnosis: Acute on chronic kidney injury, history of chronic kidney disease stage III This is a 73-year-old male patient came into the ED because of generalized weakness,, altered mentation, dehydration, and sepsis. The patient Has been feeling weak for the past 2 weeks and significantly got worse over the past 2-3 days. . Over the past 2-3 days, the patient got worse, unable to get up, unable to walk. The patient had seen his primary care physician and lab work was ordered on outpatient basis. The labs were significantly abnormal and the patient had an acute kidney injury and acute hyperkalemia and for that reason the patient was asked to come in immediately to the emergency department. The patient denied having any chest pain. No significant cough sputum production chest that is so wheezing. No nausea or vomiting. Denies having any dysuria frequency or urgency. He had diminished urine output. In the ED, and a temperature of 97.3. He was hemodynamically stable with a BP of 136/66 and pulse ox of 99% on room air. The patient was in, was at 6 hemoglobin 11.0. He was an acute kidney injury with a BUN of 134 and a potassium level of 7.7 and a creatinine of 6.8. Serum bicarb was 14. The anion gap was 14. The patient had an EKG that showed no peaked T waves and there was no EKG is acute hyperkalemia. The patient was started on IV fluids. He was given D50 insulin and he was given also bicarb. He was asked to be moved to the intensive care unit for further evaluation. Along with fluid resuscitation and treatment, potassium level came down to 4.5. Serum bicarb is up to 24. Creatinine is down to 4.9. Calcium level is at 6.4. LFTs continue to be within normal limits. The patient is on D5 with 3 A of bicarb at the rate of 80 mL an hour. The patient is known to multiple medical problems and comorbidities. The patient was in the hospital back in 11/08/2018 for an acute kidney injury related to diarrhea and gastroenteritis. At that time he was treated and he was discharged without any major complications. His baseline creatinine was down to 1.9 on 11/16/2018. The patient has COPD stage III. The patient has history of chronic atrial fibrillation on Xarelto. He also has chronic congestion heart failure with mild impairment of LV function and ejection fraction of 40-45% and he is also diabetic with known history of peripheral vascular disease, hypertension and hyperlipidemia and previous history of CVA back in 2007. He has had previous UTI back in 2018 with E. coli. He has carotid artery disease and undergone endarterectomy on the left. On 12/31/2008 Seeing this patient for a follow-up. Overall, the patient is still stable. The patient was resuscitated IV fluids and there was some improvement in the labs which I think it's an erroneous recording as the patient's subsequent blood work that was obtained this morning showed significant abnormalities with ongoing elevation the potassium and creatinine being still elevated. The patient has chronic stage III kidney disease with a creatinine ranging between 1.6 and 1.9. He comes in with an acute kidney injury. This is probably related to medications and diminished oral intake. The patient is still receiving IV fluids. I switched him today bicarb infusion this morning. His hyperkalemia was treated with a potassium lowering cocktail where he was given bicarb and insulin. He is producing urine. Ultrasound the kidneys shows no evidence of any obstruction and there is no evidence of any hydronephrosis. The patient is resting comfortably in bed. He is afebrile for now. Urinalysis was negative for any acute infection. He was taken off anticoagulation. He is on Levemir insulin 50 units twice a day along with fine scale coverage for blood sugar control. He is also on a bicarb infusion which is running at 100 mL an hour. On 01/01/2019, the patient remains in intensive care unit. He has no specific complaints. Potassium level is normalized. Serum bicarb level is improved. Nevertheless, there is no improvement in creatinine which remains quite elevated at 6.08. BUN is 119. No significant alteration in mental status compared to yesterday. No signs of any fluid overload. He is producing urine output and the neck fluid balance the past 24 hours has been +784 mL. His urine output was 1700 over the past 24 hours. Nephritis on the case. Dialysis is being contemplated on this patient. Ultrasound the kidneys showed no evidence of any hydronephrosis. The patient off the bicarb drip and put him on a normal saline infusion. He is off the Rey inhibitors. He is also off diuretics for now. Xarelto is also on hold based on his underlying renal failure and the patient is receiving IV heparin accordingly. Reevaluated today on 01/02/2019, patient is about the same, slight improvement in his renal functioning is noted, creatinine is 5.68 today. Continues to have good urine output, patient was seen by nephrology again today, and the plan is to proceed with vascular surgery consultation for catheter placement and eventually hemodialysis. Chest x-ray is showing evidence of congestive heart failure/pulmonary edema secondary to acute renal failure. Patient remains on diuretics. Echocardiogram showed impaired left ventricle with ejection fraction of 30-55%. BUN today is 107 creatinine 5.68 CBC is relatively normal, hemoglobin is 10.5. Patient denies being short of breath, however he is on BiPAP, IPAP of 14 EPAP of 6 FiO2 is 40% Reevaluated today on 01/03/2019, patient remains in the ICU, asymptomatic, generally weak, has some bleeding around the dialysis catheter in the groin, patient did extremely well post dialysis, and over 2 L of fluids were removed. He is scheduled to undergo dialysis again today. is at bedside, and she was updated on his condition. Patient is feeling much improved compared to yesterday. He is on 8 L high flow nasal cannula, O2 saturations 98%, and the plan is to titrate his FiO2 down. WBC count is 7.9 hemoglobin is 9.6 lites are normal renal profile showed a BUN of 86 creatinine of 4.84. Chest x-ray showed mostly atypical interstitial edema, strongly doubt left lower lobe pneumonia. Objective - Vital Signs Vital signs: Vital Signs Temp 97.9 F 01/03/19 12:00 Pulse 63 01/03/19 14:00 Resp 21 01/03/19 14:00 BP 111/53 01/03/19 14:00 Pulse Ox 97 01/03/19 14:00 Intake & Output 01/02/19 01/03/19 01/03/19 18:59 06:59 18:59 Intake Total 250.000 120 300 Output Total 1495 3125 2200 Balance -1245.000 -3005 -1900 Weight 88.1 kg Intake: Intake, IV Titration 250.000 Amount Heparin Sod,Pork in 0.45% 250.000 NaCl 25,000 unit In 0.45 % NaCl 1 250ml.bag @ 10. 96 UNITS/KG/HR 9.996 mls/ hr IV .Q24H [facility] Rx#: [id number] Oral 120 300 Output: Urine 1495 1125 900 Hemodialysis 1999 1299 Other: Voiding Method Indwelling Catheter Indwelling Catheter Indwelling Catheter - Exam Physical Exam: Revealed 73-year-old white male in no distress, on 8 L high flow nasal cannula. Head: Atraumatic, normocephalic. HEENT:[Neck is supple.] [No neck masses.] [No thyromegaly.] [No JVD.] Chest: [Crackles and rhonchi noted bilaterally. Symmetrical chest expansion. Cardiac Exam: [Normal S1 and S2, no S3 gallop, 2/6 systolic murmur thought the precordium.] Abdomen: [Soft, nontender, no megaly, no rebound, no guarding, normal bowel sounds.] Extremities: [No clubbing, no edema, no cyanosis.] Neurological Exam: [No focal neurologic deficit.] Alert and oriented 3. Psychiatric: Normal mood affect and normal mental status examination. Skin: No rashes. Lymphatics: No lymphadenopathy - Labs CBC & Chem 7: 01/03/19 04:56 01/03/19 04:56 Labs: Abnormal Lab Results - Last 24 Hours (Table) 01/02/19 01/02/19 01/02/19 Range/Units 15:02 17:19 17:20 RBC (4.30-5.90) m/uL Hgb (13.0-17.5) gm/dL Hct (39.0-53.0) % APTT 70.3 H (22.0-30.0) sec BUN (9-20) mg/dL Creatinine (0.66-1.25) mg/dL Glucose (74-99) mg/dL POC Glucose (mg/dL) 331 H 329 H (75-99) mg/dL Calcium (8.4-10.2) mg/dL 01/02/19 01/03/19 01/03/19 Range/Units 20:57 04:56 04:56 RBC 3.14 L (4.30-5.90) m/uL Hgb 9.6 L (13.0-17.5) gm/dL Hct 28.5 L (39.0-53.0) % APTT (22.0-30.0) sec BUN 86 H (9-20) mg/dL Creatinine 4.84 H (0.66-1.25) mg/dL Glucose 221 H (74-99) mg/dL POC Glucose (mg/dL) 301 H (75-99) mg/dL Calcium 8.3 L (8.4-10.2) mg/dL 01/03/19 01/03/19 01/03/19 Range/Units 04:56 06:59 11:53 RBC (4.30-5.90) m/uL Hgb (13.0-17.5) gm/dL Hct (39.0-53.0) % APTT 56.2 H (22.0-30.0) sec BUN (9-20) mg/dL Creatinine (0.66-1.25) mg/dL Glucose (74-99) mg/dL POC Glucose (mg/dL) 211 H 121 H (75-99) mg/dL Calcium (8.4-10.2) mg/dL Assessment and Plan Assessment: Impression: 1 acute hypoxic respiratory failure secondary to pulmonary edema secondary to LV dysfunction/systolic dysfunction and fluid overload secondary to acute on chronic renal failure. 2 acute kidney injury on top of chronic stage III chronic kidney disease 3 electrolyte imbalance and metabolic acidosis with hyperkalemia secondary to acute renal failure/nonoliguric. 4 acute metabolic acidosis, resolved. 5 history of COPD 6 systolic heart failure and LV dysfunction 7 coronary artery disease 8 type 2 diabetes 9 hyperlipidemia 11 history of CVA back in 2006 12 history of atrial fibrillation currently AV paced. 13 peripheral vessel occlusive disease involving lower extremities. 14 obstructive sleep apnea noncompliant with CPAP. 15 history of hypertension. Recommendation: Continue hemodialysis as per nephrology. Discontinue heparin and place but the patient on Xarelto. Avoid nephrotoxic agents. Updated vascular surgery on his right groin bruising and bleeding around the dialysis catheter Continue GI and DVT prophylaxis We'll continue to follow and possibly transfer out of the ICU in the next 24 hours. Time with Patient: Less than 30
[2019-01-03 16:52] LABS: Glucose,Whole Blood 282 mg/dL (75-99)
--- NOTE | 2019-01-03 17:55 | PN ---
PROGRESS NOTE Patient is seen for followup for acute kidney injury on top of chronic kidney disease. Patient was admitted to the hospital with fluid overload and acute kidney injury. His renal function did not improve. Creatinine stayed about 6.4 from baseline of about 1.9 in November of 2018. Patient was also fluid-overloaded; therefore he has been started on dialysis. He had his second treatment today. He continues to have good urine output and is maintained on IV Lasix 80 mg IV q.12 hours. This morning patient is feeling better. His appetite is poor. He is hemodynamically stable. Blood pressure was 115/61, heart rate of about 62 per minute. Patient is afebrile. EXAMINATION OF THE HEART: S1 and S2. EXAMINATION OF LUNGS: Decreased breath sounds at bases. ABDOMEN: Soft, obese, non-tender. Examination of lower extremities shows edema 1+ bilaterally. [employer] exam is grossly intact. Patient moving his extremities. Labs show sodium 142, potassium 3.9, BUN 86, serum creatinine 4.84, hemoglobin 9.6 g/dL. ASSESSMENT: 1. Volume overload, currently improving. Continue with IV Lasix. We will hold off on dialysis tomorrow unless his volume status is worse. I will repeat a chest x-ray for tomorrow. 2. Acute kidney injury secondary to ischemic acute tubular necrosis. Previous creatinine 1.9 in November of 2018. Currently nonoliguric. Continue to monitor for recovery of renal function. 3. Hyperkalemia on initial admission, now improved. 4. Chronic kidney disease, stage III, secondary to diabetic kidney disease. Baseline creatinine 1.6 to 1.9 mg/dL. 5. Type 2 diabetes. 6. Anemia. No active bleeding noted. Check iron profile. PLAN: Continue with IV Lasix. Hold dialysis tomorrow. Repeat chest x-ray in a.m. If fluid status is worse, we will dialyze him again tomorrow. MMODL / IJN: [id number] /
[2019-01-03 20:27] LABS: Glucose,Whole Blood 367 mg/dL (75-99)
[2019-01-03] MEDS: DONEPEZIL 5 MG TAB PO SCH (20:50)
[2019-01-03] MEDS: ATORVASTATIN 40 MG TAB PO SCH (20:51)
[2019-01-03] MEDS: SERTRALINE 25 MG TAB PO SCH (20:51)
[2019-01-04] MEDS: INSULIN DETEMIR (LEVEMIR) 100 UNIT/ML SYR SQ SCH ×3 (00:40→20:18)
[2019-01-04] MEDS: IPRATROPIUM-ALBUTEROL 3 ML NEB INHALATION SCH ×6 (03:30→23:16)
[2019-01-04 05:58] LABS: HCT 27.4 % (39.0-53.0); HGB 8.5 gm/dL (13.0-17.5); MCH 29.9 pg (25.0-35.0); MCHC 31.1 g/dL (31.0-37.0); Platelet Count 152 k/uL (150-450); RBC 2.85 m/uL (4.30-5.90); RDW 13.4 % (11.5-15.5)
[2019-01-04 06:37] LABS: Calcium 8.2 mg/dL (8.4-10.2); Potassium 3.8 mmol/L (3.5-5.1)
[2019-01-04 06:39] LABS: MCV 96.1 fL (80.0-100.0)
[2019-01-04 07:02] LABS: Glucose,Whole Blood 145 mg/dL (75-99)
--- NOTE | 2019-01-04 07:45 | XR ---
EXAMINATION TYPE: XR chest 1V portable DATE OF EXAM: 01/04/2019 HISTORY: Shortness of breath. COMPARISON: 01/03/2019 TECHNIQUE: Single view of the chest is submitted. FINDINGS: Demonstrated are scattered senescent parenchymal change. There is no evidence for focal infiltrate. The heart is stable. Hilar and mediastinal structures are within normal limits. Degenerative changes are seen of the dorsal spine. IMPRESSION: 1. Chronic changes without evidence for acute pulmonary disease.
[2019-01-04] MEDS: INSULIN ASPART (NovoLOG) 100 UNIT/ML VIAL SQ SCH ×4 (07:46→20:39)
[2019-01-04] MEDS: FUROSEMIDE 10 MG/ML 10 ML VIAL IV SCH ×2 (08:04→20:18)
[2019-01-04] MEDS: APIXABAN 2.5 MG TABLET PO SCH ×2 (08:05→20:18)
[2019-01-04] MEDS: NICOTINE 21MG/24HR PATCH TRANSDERM SCH (08:05)
[2019-01-04] MEDS: FERROUS SULFATE 325 MG TAB PO SCH (08:05)
[2019-01-04] MEDS: MEMANTINE 10 MG TAB PO SCH (08:05)
[2019-01-04] MEDS: amLODIPine 5 MG TAB PO SCH (08:05)
[2019-01-04] MEDS: ASPIRIN 81 MG PO SCH (08:05)
[2019-01-04] MEDS: FAMOTIDINE 20 MG TAB PO SCH (08:05)
[2019-01-04] MEDS ORDERED: APIXABAN 5 MG TAB PO SCH (09:00)
--- NOTE | 2019-01-04 10:20 | CDI ---
Documentation Clarification Form Date: 01/04/2019 10:12:36 AM From: Cheryl JacquesParraDIONNE garcia, CCDS Admit Date: 12/30/2018 12:56:00 PM Patient Name: Samir Chan Visit Number: [id number] Discharge Date: ATTENTION: The Clinical Documentation Specialists (CDI) and [facility] Coding Staff appreciate your assistance in clarifying documentation. Please respond to the clarification below the line at the bottom and electronically sign. The CDI & [facility] Coding staff will review the response and follow-up if needed. Please note: Queries are made part of the Legal Health Record. If you have any questions, please contact the author of this message via ITS. Dr. Hernández Sheet: A diagnosis of anemia lacks specificity to accurately reflect your patients severity of condition and clarification is needed. Anemia is included in the history in the ED note. Per the History & Physical, anemia is documented without further specificity. History/Risk Factors: DM II, CKD III, Diabetic nephropathy, Atrial Fibrillation with pacemaker, Chronic systolic CHF, Hypertension, Hyperlipidemia & PVD. Clinical indicators: Presented with weakness, low BP, dehydration, loose stools & vomiting x1 week. Diagnosed with acute renal failure. Hemoglobin: 11.0* - 9.6* - 9.1* - 10.5* - 9.6* - 8.5* Hematocrit: 32.5* - 28.5* - 27.2*, 31.9* - 28.5* - 27.4* Treatment: Hemodialysis cath placed on 01/02 with initiation of dialysis, IV fluid rate 100, IV CalGluc, IV Dextrose/Water, IV Insulin, IV NaBicarb, IV Lasix, IV Heparin drip, Daily H/H. In order to capture the severity of condition, please clarify the type of anemia and etiology if known: Acute blood loss anemia, please specify cause if known: Acute on chronic blood loss anemia Chronic blood loss anemia, please specify chronic condition, if known: Iron deficiency anemia Hemolytic anemia Drug induced anemia Nutritional anemia Anemia of chronic kidney disease Unable to determine Other, please specify (Last Revision: January 2017) Unable to determine, no workup was done MTDD
[2019-01-04 11:18] LABS: Glucose,Whole Blood 276 mg/dL (75-99)
--- NOTE | 2019-01-04 12:54 | P.PN ---
Subjective Progress Note Date: 01/04/19 Principal diagnosis: Acute on chronic kidney injury, history of chronic kidney disease stage III This is a 73-year-old male patient came into the ED because of generalized weakness,, altered mentation, dehydration, and sepsis. The patient Has been feeling weak for the past 2 weeks and significantly got worse over the past 2-3 days. . Over the past 2-3 days, the patient got worse, unable to get up, unable to walk. The patient had seen his primary care physician and lab work was ordered on outpatient basis. The labs were significantly abnormal and the patient had an acute kidney injury and acute hyperkalemia and for that reason the patient was asked to come in immediately to the emergency department. The patient denied having any chest pain. No significant cough sputum production chest that is so wheezing. No nausea or vomiting. Denies having any dysuria frequency or urgency. He had diminished urine output. In the ED, and a temperature of 97.3. He was hemodynamically stable with a BP of 136/66 and pulse ox of 99% on room air. The patient was in, was at 6 hemoglobin 11.0. He was an acute kidney injury with a BUN of 134 and a potassium level of 7.7 and a creatinine of 6.8. Serum bicarb was 14. The anion gap was 14. The patient had an EKG that showed no peaked T waves and there was no EKG is acute hyperkalemia. The patient was started on IV fluids. He was given D50 insulin and he was given also bicarb. He was asked to be moved to the intensive care unit for further evaluation. Along with fluid resuscitation and treatment, potassium level came down to 4.5. Serum bicarb is up to 24. Creatinine is down to 4.9. Calcium level is at 6.4. LFTs continue to be within normal limits. The patient is on D5 with 3 A of bicarb at the rate of 80 mL an hour. The patient is known to multiple medical problems and comorbidities. The patient was in the hospital back in 11/08/2018 for an acute kidney injury related to diarrhea and gastroenteritis. At that time he was treated and he was discharged without any major complications. His baseline creatinine was down to 1.9 on 11/16/2018. The patient has COPD stage III. The patient has history of chronic atrial fibrillation on Xarelto. He also has chronic congestion heart failure with mild impairment of LV function and ejection fraction of 40-45% and he is also diabetic with known history of peripheral vascular disease, hypertension and hyperlipidemia and previous history of CVA back in 2007. He has had previous UTI back in 2018 with E. coli. He has carotid artery disease and undergone endarterectomy on the left. On 12/31/2008 Seeing this patient for a follow-up. Overall, the patient is still stable. The patient was resuscitated IV fluids and there was some improvement in the labs which I think it's an erroneous recording as the patient's subsequent blood work that was obtained this morning showed significant abnormalities with ongoing elevation the potassium and creatinine being still elevated. The patient has chronic stage III kidney disease with a creatinine ranging between 1.6 and 1.9. He comes in with an acute kidney injury. This is probably related to medications and diminished oral intake. The patient is still receiving IV fluids. I switched him today bicarb infusion this morning. His hyperkalemia was treated with a potassium lowering cocktail where he was given bicarb and insulin. He is producing urine. Ultrasound the kidneys shows no evidence of any obstruction and there is no evidence of any hydronephrosis. The patient is resting comfortably in bed. He is afebrile for now. Urinalysis was negative for any acute infection. He was taken off anticoagulation. He is on Levemir insulin 50 units twice a day along with fine scale coverage for blood sugar control. He is also on a bicarb infusion which is running at 100 mL an hour. On 01/01/2019, the patient remains in intensive care unit. He has no specific complaints. Potassium level is normalized. Serum bicarb level is improved. Nevertheless, there is no improvement in creatinine which remains quite elevated at 6.08. BUN is 119. No significant alteration in mental status compared to yesterday. No signs of any fluid overload. He is producing urine output and the neck fluid balance the past 24 hours has been +784 mL. His urine output was 1700 over the past 24 hours. Nephritis on the case. Dialysis is being contemplated on this patient. Ultrasound the kidneys showed no evidence of any hydronephrosis. The patient off the bicarb drip and put him on a normal saline infusion. He is off the Rey inhibitors. He is also off diuretics for now. Xarelto is also on hold based on his underlying renal failure and the patient is receiving IV heparin accordingly. Reevaluated today on 01/02/2019, patient is about the same, slight improvement in his renal functioning is noted, creatinine is 5.68 today. Continues to have good urine output, patient was seen by nephrology again today, and the plan is to proceed with vascular surgery consultation for catheter placement and eventually hemodialysis. Chest x-ray is showing evidence of congestive heart failure/pulmonary edema secondary to acute renal failure. Patient remains on diuretics. Echocardiogram showed impaired left ventricle with ejection fraction of 30-55%. BUN today is 107 creatinine 5.68 CBC is relatively normal, hemoglobin is 10.5. Patient denies being short of breath, however he is on BiPAP, IPAP of 14 EPAP of 6 FiO2 is 40% Reevaluated today on 01/03/2019, patient remains in the ICU, asymptomatic, generally weak, has some bleeding around the dialysis catheter in the groin, patient did extremely well post dialysis, and over 2 L of fluids were removed. He is scheduled to undergo dialysis again today. is at bedside, and she was updated on his condition. Patient is feeling much improved compared to yesterday. He is on 8 L high flow nasal cannula, O2 saturations 98%, and the plan is to titrate his FiO2 down. WBC count is 7.9 hemoglobin is 9.6 lites are normal renal profile showed a BUN of 86 creatinine of 4.84. Chest x-ray showed mostly atypical interstitial edema, strongly doubt left lower lobe pneumonia. Reevaluated today on 01/04/2019, patient remains in the ICU, doing much better, responded well to hemodialysis, on few liters nasal cannula, chest x-ray is showing improvement in his interstitial edema. No plans for dialysis today, hence I plan to transfer the patient out of the ICU to a regular medical floor. Hemoglobin is 8.5 WBC count is 8.0 in left lites are normal BUN is 71 creatinine 4.35. Chest x-ray was reviewed, no evidence of acute pulmonary disease Objective - Vital Signs Vital signs: Vital Signs Temp 98.1 F 01/04/19 08:00 Pulse 67 01/04/19 10:00 Resp 19 01/04/19 10:00 BP 115/48 01/04/19 10:00 Pulse Ox 98 01/04/19 10:00 Intake & Output 01/03/19 01/04/19 01/04/19 18:59 06:59 18:59 Intake Total 1999 Output Total 2500 590 290 Balance -500 -590 -90 Weight 88.9 kg 88.9 kg Intake: Oral 1999 200 Output: Urine 1200 590 290 Hemodialysis 1300 Other: Voiding Method Indwelling Catheter Indwelling Catheter Indwelling Catheter - Exam Physical Exam: Revealed 73-year-old white male in no distress, on few liters nasal cannula. Head: Atraumatic, normocephalic. HEENT:[Neck is supple.] [No neck masses.] [No thyromegaly.] [No JVD.] Chest: Minimal crackles at the bases, no rhonchi and no wheezes.. Cardiac Exam: [Normal S1 and S2, no S3 gallop, 2/6 systolic murmur thought the precordium.] Abdomen: [Soft, nontender, no megaly, no rebound, no guarding, normal bowel sounds.] Extremities: [No clubbing, no edema, no cyanosis.] Neurological Exam: [No focal neurologic deficit.] Alert and oriented 3. Psychiatric: Normal mood affect and normal mental status examination. Skin: No rashes. Lymphatics: No lymphadenopathy - Labs CBC & Chem 7: 01/04/19 05:23 01/04/19 05:23 Labs: Abnormal Lab Results - Last 24 Hours (Table) 01/03/19 01/03/19 01/04/19 Range/Units 16:48 20:18 05:23 RBC 2.85 L (4.30-5.90) m/uL Hgb 8.5 L (13.0-17.5) gm/dL Hct 27.4 L (39.0-53.0) % Carbon Dioxide (22-30) mmol/L BUN (9-20) mg/dL Creatinine (0.66-1.25) mg/dL Glucose (74-99) mg/dL POC Glucose (mg/dL) 282 H 367 H (75-99) mg/dL Calcium (8.4-10.2) mg/dL 01/04/19 01/04/19 01/04/19 Range/Units 05:23 06:59 11:14 RBC (4.30-5.90) m/uL Hgb (13.0-17.5) gm/dL Hct (39.0-53.0) % Carbon Dioxide 31 H (22-30) mmol/L BUN 71 H (9-20) mg/dL Creatinine 4.35 H (0.66-1.25) mg/dL Glucose 145 H (74-99) mg/dL POC Glucose (mg/dL) 145 H 276 H (75-99) mg/dL Calcium 8.2 L (8.4-10.2) mg/dL Assessment and Plan Assessment: Impression: 1 acute hypoxic respiratory failure secondary to pulmonary edema secondary to LV dysfunction/systolic dysfunction and fluid overload secondary to acute on chronic renal failure. 2 acute kidney injury on top of chronic stage III chronic kidney disease 3 electrolyte imbalance and metabolic acidosis with hyperkalemia secondary to acute renal failure/nonoliguric. 4 acute metabolic acidosis, resolved. 5 history of COPD 6 systolic heart failure and LV dysfunction 7 coronary artery disease 8 type 2 diabetes 9 hyperlipidemia 11 history of CVA back in 2006 12 history of atrial fibrillation currently AV paced. 13 peripheral vessel occlusive disease involving lower extremities. 14 obstructive sleep apnea noncompliant with CPAP. 15 history of hypertension. Recommendation: Continue hemodialysis as per nephrology. Continue Xarelto Avoid nephrotoxic agents. Continue GI and DVT prophylaxis Will transfer the patient out of the ICU to a regular medical floor. Time with Patient: Less than 30
--- NOTE | 2019-01-04 15:19 | P.PN ---
Subjective This is a pleasant 73 years old male with past medical history of heart failure, atrial fibrillation, status post pacemaker, COPD, CVA/TIA, diabetes mellitus, GERD, hyperlipidemia, hypertension, sleep apnea on CPAP/BiPAP, peripheral vascular disease. Patient feels weak and poor historian, information was taken with the help with the at bedside. As per patient was feeling weak for the last 2 weeks, which significantly got worse over the last 2-3 days, associated with low blood pressure about 52/30s 2 weeks ago when the called her PCP and recommended hydration, as per had blood pressure for the last 2 days was improved up to 109/60s, also patient was complaining of from loose bowel movement for the last 2 to 3 days at least one loose bowel movement per day , associated with vomiting for 1 week. However patient denies abdominal pain. Patient was also having poor appetite and decreased oral intake. For the last 2-3 days patient needed help to walk and get up. She called his PCP and went to see him Dr. Zarco/his nurse practitioner Katiana, and his blood work came back with worsening creatinine and high potassium, he got the call today to come to the emergency room by his PCP office Patient also is heavy smoker about 1 pack per day, occasional alcohol but no illicit drugs. He has been having some dyspnea with chronic cough and recent worsening, and sure about making any phlegm but as per he was not. Patient denies chest pain As per patient was on sotalol and coreg both at home, also he was on a rmodafinil for sleep problem but he was not taking it over the last few weeks. On admission vitals stable, labs showing worsening creatinine from 1.6-2.4, up to 6.8. Potassium is elevated at 7.7, ever enzymes not elevated. Hemoglobin is stable at 11, rest of CBC is unremarkable. 12/31/2018 Patient is awake and alert with no chest pain or dyspnea. No coughing. He still feels generally weak. Not complaining of from pain. No urinary complaints, his blood pressure is 90/34, heart rate is 66. his sotalol was stopped. His potassium this morning is 7.2 and 6.5, creatinine is persistently elevated at 6.4 and 6.5. Sugar is on the high side, we going to increase his Levemir to 15 units twice a day. Patient has normal renal ultrasound. Urine culture are still pending. Nephrology and pulmonary team input is appreciated. Patient to continue on bicarbonate drip. Nephrology team are considering renal replacement therapy and hemodialysis. Eliquis was stopped upon recommendation of environmental services technician for patient might need a renal catheter. And instead we will put the patient on subcu heparin. Medial drain is added for blood pressure support 01/01/2019 Patient remains in the ICU with no new complaints. He is not in distress. No chest pain or dyspnea. He still generally weak. Vital signs stable. Creatinine is 6.0 today, patient remains on heparin drip as his Eliquis was held for possible need for hemodialysis. Change bicarb drip to normal saline as per environmental services technician recommendation. No need for renal replacement therapy today as per environmental services technician. We'll keep monitoring 01/02/2019 Patient remains in the ICU, patient clinically the same with no dyspnea or chest pain. Patient is hemodynamically stable with blood pressure 155/73 cartridges low 60s. Coreg and sotalol remain on hold. His creatinine slightly came down today from 6.0 to 5.6. Potassium 4.2. Sugar is controlled today 108-177, patient remains on Levemir 15 units twice a day, liver enzymes were not baldomero vated. Final urine culture showing no growth. On admission his Xarelto was stopped and patient was placed on heparin drip, For his history of atrial fibrillation, Patient is followed closely by pulmonary and nephrology teams. 01/03/2019 Patient a week with no new complaint, he is generally weak with some tachypnea. No cough and no chest pain. Patient got hemodialysis yesterday and 2 L were t aken out, and this morning he is under going to same with hemodialysis and 2 L of fluids are removed. Speech and swallow evaluation has been consulted. Vitals are stable. Labs looked stable with creatinine 4.8, hemoglobin stable while on heparin drip., Sugar is controlled. This morning is still elevated. Patient was also placed on Lasix 80 mg twice daily. Is currently on Levemir 12 units twice a day and sliding scale. His blood pressure 118/69 while off sotalol and Coreg which are held on admission 01/04/2019 Patient remains in the ICU, has a breathing is quiet with no dyspnea. He denies cough is well. He is saturating 96% on 4 L oxygen. No showing slightly low hemoglobin at 8.5. Creatinine is slightly lower today at 4.35. Sugar is slightly elevated on 121-367. Chest x-ray showing no infiltrates . And improved edema. Review of systems CONSTITUTIONAL: No fever, no malaise, no fatigue. HEENT: No recent visual problems or hearing problems. Denied any sore throat. CARDIOVASCULAR: No orthopnea, PND, no palpitations, no syncope. PULMONARY: no cough, no hemoptysis. GASTROINTESTINAL: No diarrhea, no nausea, no vomiting, no abdominal pain. Normoactive bowel sounds. NEUROLOGICAL: No headaches, no weakness, no numbness. HEMATOLOGICAL: Denies any bleeding or petechiae. GENITOURINARY: Denies any burning micturition, frequency, or urgency. MUSCULOSKELETAL/RHEUMATOLOGICAL: Denies any joint pain, swelling, or any muscle pain. ENDOCRINE: Denies any polyuria or polydipsia. A Active Medications Albuterol/Ipratropium (Duoneb 0.5 Mg-3 Mg/3 Ml Soln) 3 ml INHALATION RT-Q4H [facility] Last Admin: 01/04/19 12:36 Dose: Not Given Documented by: Amlodipine Besylate (Norvasc) 5 mg PO DAILY [facility] Last Admin: 01/04/19 08:05 Dose: 5 mg Documented by: Apixaban (Eliquis) 2.5 mg PO BID [facility] Last Admin: 01/04/19 08:05 Dose: 2.5 mg Documented by: Aspirin (Aspirin) 81 mg PO DAILY [facility] Last Admin: 01/04/19 08:05 Dose: 81 mg Documented by: Atorvastatin Calcium (Lipitor) [address] [facility] Last Admin: 01/03/19 20:51 Dose: 40 mg Documented by: Donepezil HCl (Aricept) [address] [facility] Last Admin: 01/03/19 20:50 Dose: 5 mg Documented by: Famotidine (Pepcid) 20 mg PO DAILY [facility] Last Admin: 01/04/19 08:05 Dose: 20 mg Documented by: Ferrous Sulfate (Feosol) 325 mg PO DAILY [facility] Last Admin: 01/04/19 08:05 Dose: 325 mg Documented by: Furosemide (Lasix) 80 mg IV Q12HR [facility] Last Admin: 01/04/19 08:04 Dose: 80 mg Documented by: Insulin Aspart (Novolog) 0 unit SQ [facility]; Protocol Last Admin: 01/04/19 11:21 Dose: 4 unit Documented by: Insulin Detemir (Levemir) 15 unit SQ BID@0700,2100 [facility] Last Admin: 01/04/19 07:04 Dose: 15 unit Documented by: Memantine (Namenda) 10 mg PO DAILY [facility] Last Admin: 01/04/19 08:05 Dose: 10 mg Documented by: Naloxone HCl (Narcan) 0.2 mg IV Q2M PRN PRN Reason: Opioid Reversal Nicotine (Habitrol 21mg/24hr Patch) 1 patch TRANSDERM DAILY [facility] Last Admin: 01/04/19 08:05 Dose: 1 patch Documented by: Sertraline HCl (Zoloft) 25 mg PO HS [facility] Last Admin: 01/03/19 20:51 Dose: 25 mg Documented by: Objective - Vital Signs Vital signs: Vital Signs Temp 98.1 F 01/04/19 08:00 Pulse 67 01/04/19 10:00 Resp 19 01/04/19 10:00 BP 115/48 01/04/19 10:00 Pulse Ox 99 01/04/19 12:41 Intake & Output 01/03/19 01/04/19 01/04/19 18:59 06:59 18:59 Intake Total 2000 200 Output Total 2500 590 290 Balance -500 -590 -90 Weight 88.9 kg 88.9 kg Intake: Oral 2000 200 Output: Urine 1200 590 290 Hemodialysis 1300 Other: Voiding Method Indwelling Catheter Indwelling Catheter Indwelling Catheter - Exam -GENERAL: The patient is alert and oriented x2-[address] and time, oriented to person, not in any acute distress. Well developed, well nourished. HEENT: Pupils are round and equally reacting to light. EOMI. No scleral icterus. No conjunctival pallor. Normocephalic, atraumatic. No pharyngeal erythema. No thyromegaly. CARDIOVASCULAR: S1 and S2 present. No murmurs, rubs, or gallops. PULMONARY: Chest is clear to auscultation, no wheezing ABDOMEN: Soft, nontender, nondistended, normoactive bowel sounds. No palpable organomegaly. Abdominal hernia MUSCULOSKELETAL: No joint swelling or deformity. EXTREMITIES: No cyanosis, clubbing, or pedal edema. NEUROLOGICAL: Gross neurological examination did not reveal any focal deficits. SKIN: No rashes. No petechiae - Labs CBC & Chem 7: 01/04/19 05:23 01/04/19 05:23 Labs: Abnormal Lab Results - Last 24 Hours (Table) 01/03/19 01/03/19 01/04/19 Range/Units 16:48 20:18 05:23 RBC 2.85 L (4.30-5.90) m/uL Hgb 8.5 L (13.0-17.5) gm/dL Hct 27.4 L (39.0-53.0) % Carbon Dioxide (22-30) mmol/L BUN (9-20) mg/dL Creatinine (0.66-1.25) mg/dL Glucose (74-99) mg/dL POC Glucose (mg/dL) 282 H 367 H (75-99) mg/dL Calcium (8.4-10.2) mg/dL 01/04/19 01/04/19 01/04/19 Range/Units 05:23 06:59 11:14 RBC (4.30-5.90) m/uL Hgb (13.0-17.5) gm/dL Hct (39.0-53.0) % Carbon Dioxide 31 H (22-30) mmol/L BUN 71 H (9-20) mg/dL Creatinine 4.35 H (0.66-1.25) mg/dL Glucose 145 H (74-99) mg/dL POC Glucose (mg/dL) 145 H 276 H (75-99) mg/dL Calcium 8.2 L (8.4-10.2) mg/dL Assessment and Plan Assessment: Acute renal failure, needing hemodialysis Acute on chronic systolic heart failure with ejection fracture 30-35% with possible diastolic component Hyperkalemia, resolved Metabolic encephalopathy, secondary to above. Resolved Chronic kidney disease, mostly diabetic nephropathy. Stage III Mild Acute COPD exacerbation. Resolved History of atrial fibrillation on anticoagulation Chronic congestive heart failure Status post pacemaker COPD, not acute exacerbation History of CVA/TIA Diabetes mellitus Guarded Hyperlipidemia Hypertension Chronic sleep apnea on CPAP/BiPAP Peripheral vascular disease Plan: This is a pleasant 73 years old male who presents with hyperkalemia and acute kidney injury. Patient's wish heparin drip to Eliquis is going to be is been evident on the phone immediately. Follow-up potassium level and creatinine level. Follow-up recommendation from pulmonary and nephrology. Continue with hemodialysis as per nephrology recommendations Adjust medication for renal dose, stop sotalol, lower Levemir from 22 units to 15 units twice a day and insulin sliding scale hold Xarelto and metformin, Lasix. Labs and medication were reviewed.. Continue same treatment. Continue with symptomatic treatment. Resume home medication. Monitor lytes and vitals. DVT and GI prophylaxis. Further recommendations of the clinical course of the patient DVT prophylaxis: Eliquis GI Prophylaxis: Pepcid Prognosis is guarded
[2019-01-04 16:40] LABS: Glucose,Whole Blood 293 mg/dL (75-99)
[2019-01-04] MEDS: DARBEPOETIN ALFA 40 MCG/0.4 ML SYRINGE SQ SCH (17:34)
--- NOTE | 2019-01-04 20:05 | PN ---
PROGRESS NOTE The patient is seen for followup for acute kidney injury on top of chronic kidney disease. He was dialyzed yesterday. Patient has had 2 treatments of hemodialysis. He currently has good urine output and is maintained on IV Lasix. He is not short of breath anymore. I am holding off on hemodialysis today and we will reassess tomorrow. PHYSICAL EXAMINATION: On examination this morning blood pressure was 117/50, heart rate 66 per minute, patient is afebrile. Examination of the heart S1, S2. Examination of the lungs, decreased breath sounds at bases. Abdomen is soft, nontender. Examination of lower extremities shows no significant edema. ELECTRON BEAM PHOTO MASK TECHNICIAN exam grossly intact. LABS: Sodium of 143, potassium 3.8, chloride 105, CO2 is 31, BUN 71, serum creatinine 4.35, hemoglobin 8.5 g/dL. ASSESSMENT: 1. Acute kidney injury most likely acute tubular necrosis, status post 2 treatments of hemodialysis. We will continue to monitor for possible recovery of kidney function. Hold hemodialysis today. We will reassess tomorrow based on his volume status. 2. Anemia. No active bleeding noted. Iron saturation was 20% in November of 2018. Therefore it was not reordered. I will maintain the patient on Aranesp. 3. Chronic kidney disease, NKF stage IIIB to IV, secondary to nephrosclerosis. PLAN: Continue with the IV Lasix. Hold hemodialysis today. Reassess tomorrow for need for dialysis and add Aranesp. MMODL / IJN: [id number] /
[2019-01-04] MEDS: ATORVASTATIN 40 MG TAB PO SCH (20:18)
[2019-01-04] MEDS: SERTRALINE 25 MG TAB PO SCH (20:18)
[2019-01-04] MEDS: DONEPEZIL 5 MG TAB PO SCH (20:18)
[2019-01-04 21:26] LABS: Glucose,Whole Blood 303 mg/dL (75-99)
[2019-01-05] MEDS: IPRATROPIUM-ALBUTEROL 3 ML NEB INHALATION SCH ×5 (04:15→21:09)
[2019-01-05 06:34] LABS: Glucose,Whole Blood 169 mg/dL (75-99)
[2019-01-05] MEDS: INSULIN ASPART (NovoLOG) 100 UNIT/ML VIAL SQ SCH ×4 (06:37→21:14)
[2019-01-05] MEDS: INSULIN DETEMIR (LEVEMIR) 100 UNIT/ML SYR SQ SCH ×2 (06:37→21:13)
--- NOTE | 2019-01-05 07:25 | XR ---
EXAMINATION TYPE: XR chest 1V portable DATE OF EXAM: 01/05/2019 COMPARISON: 01/04/2019 HISTORY: Pulmonary edema and shortness of breath TECHNIQUE: Single frontal view of the chest is obtained. FINDINGS: There is no focal air space opacity, pleural effusion, or pneumothorax seen. Very subtle i nterstitial prominence. The cardiac silhouette size is mildly enlarged. The osseous structures are intact. IMPRESSION: There is subtle interstitial prominence may be on the basis of interstitial edema given the patient's history. Very mild sequela of cardiogenic fluid overload could be considered.
[2019-01-05 09:25] LABS: Calcium 8.7 mg/dL (8.4-10.2); Potassium 3.8 mmol/L (3.5-5.1)
[2019-01-05] MEDS: APIXABAN 2.5 MG TABLET PO SCH ×2 (09:32→21:13)
[2019-01-05] MEDS: MEMANTINE 10 MG TAB PO SCH (09:32)
[2019-01-05] MEDS: NICOTINE 21MG/24HR PATCH TRANSDERM SCH (09:32)
[2019-01-05] MEDS: ASPIRIN 81 MG PO SCH (09:32)
[2019-01-05] MEDS: FERROUS SULFATE 325 MG TAB PO SCH (09:32)
[2019-01-05] MEDS: FUROSEMIDE 10 MG/ML 10 ML VIAL IV SCH ×2 (09:32→21:13)
[2019-01-05] MEDS: amLODIPine 5 MG TAB PO SCH (09:32)
[2019-01-05] MEDS: FAMOTIDINE 20 MG TAB PO SCH (09:34)
--- NOTE | 2019-01-05 11:14 | P.PN ---
Subjective This is a pleasant 73 years old male with past medical history of heart failure, atrial fibrillation, status post pacemaker, COPD, CVA/TIA, diabetes mellitus, GERD, hyperlipidemia, hypertension, sleep apnea on CPAP/BiPAP, peripheral vascular disease. Patient feels weak and poor historian, information was taken with the help with the at bedside. As per patient was feeling weak for the last 2 weeks, which significantly got worse over the last 2-3 days, associated with low blood pressure about 52/30s 2 weeks ago when the called her PCP and recommended hydration, as per had blood pressure for the last 2 days was improved up to 109/60s, also patient was complaining of from loose bowel movement for the last 2 to 3 days at least one loose bowel movement per day , associated with vomiting for 1 week. However patient denies abdominal pain. Patient was also having poor appetite and decreased oral intake. For the last 2-3 days patient needed help to walk and get up. She called his PCP and went to see him Dr. Zarco/his nurse practitioner Katiana, and his blood work came back with worsening creatinine and high potassium, he got the call today to come to the emergency room by his PCP office Patient also is heavy smoker about 1 pack per day, occasional alcohol but no illicit drugs. He has been having some dyspnea with chronic cough and recent worsening, and sure about making any phlegm but as per he was not. Patient denies chest pain As per patient was on sotalol and coreg both at home, also he was on a rmodafinil for sleep problem but he was not taking it over the last few weeks. On admission vitals stable, labs showing worsening creatinine from 1.6-2.4, up to 6.8. Potassium is elevated at 7.7, ever enzymes not elevated. Hemoglobin is stable at 11, rest of CBC is unremarkable. 12/31/2018 Patient is awake and alert with no chest pain or dyspnea. No coughing. He still feels generally weak. Not complaining of from pain. No urinary complaints, his blood pressure is 90/34, heart rate is 66. his sotalol was stopped. His potassium this morning is 7.2 and 6.5, creatinine is persistently elevated at 6.4 and 6.5. Sugar is on the high side, we going to increase his Levemir to 15 units twice a day. Patient has normal renal ultrasound. Urine culture are still pending. Nephrology and pulmonary team input is appreciated. Patient to continue on bicarbonate drip. Nephrology team are considering renal replacement therapy and hemodialysis. Eliquis was stopped upon recommendation of integrated program teacher for patient might need a renal catheter. And instead we will put the patient on subcu heparin. Medial drain is added for blood pressure support 01/01/2019 Patient remains in the ICU with no new complaints. He is not in distress. No chest pain or dyspnea. He still generally weak. Vital signs stable. Creatinine is 6.0 today, patient remains on heparin drip as his Eliquis was held for possible need for hemodialysis. Change bicarb drip to normal saline as per integrated program teacher recommendation. No need for renal replacement therapy today as per integrated program teacher. We'll keep monitoring 01/02/2019 Patient remains in the ICU, patient clinically the same with no dyspnea or chest pain. Patient is hemodynamically stable with blood pressure 155/73 cartridges low 60s. Coreg and sotalol remain on hold. His creatinine slightly came down today from 6.0 to 5.6. Potassium 4.2. Sugar is controlled today 108-177, patient remains on Levemir 15 units twice a day, liver enzymes were not baldomero vated. Final urine culture showing no growth. On admission his Xarelto was stopped and patient was placed on heparin drip, For his history of atrial fibrillation, Patient is followed closely by pulmonary and nephrology teams. 01/03/2019 Patient a week with no new complaint, he is generally weak with some tachypnea. No cough and no chest pain. Patient got hemodialysis yesterday and 2 L were t aken out, and this morning he is under going to same with hemodialysis and 2 L of fluids are removed. Speech and swallow evaluation has been consulted. Vitals are stable. Labs looked stable with creatinine 4.8, hemoglobin stable while on heparin drip., Sugar is controlled. This morning is still elevated. Patient was also placed on Lasix 80 mg twice daily. Is currently on Levemir 12 units twice a day and sliding scale. His blood pressure 118/69 while off sotalol and Coreg which are held on admission 01/04/2019 Patient remains in the ICU, has a breathing is quiet with no dyspnea. He denies cough is well. He is saturating 96% on 4 L oxygen. No showing slightly low hemoglobin at 8.5. Creatinine is slightly lower today at 4.35. Sugar is slightly elevated on 121-367. Chest x-ray showing no infiltrates . And improved edema. 01/05/2019 Patient in the ICU, he looks improved and more comfortable than before. He denies dyspnea or chest pain. He is saturating 100% on 2 L oxygen per minute via nasal cannula. He is still tachypneic with respiratory rate around 22 .No other abdominal or urinary complaints. He hemodynamically he is a stable. Creatinine is stable at 4.5 today. Electrolytes are within normal limits. Urinalysis is negative. Chest x-ray: Mild interstitial edema. He remains on Eliquis and Lasix 80 mg twice daily. His glucose is slightly elevated 169-303 and he is currently getting Levemir 15 units twice a day, which we are going to increase it to 18 units twice daily Objective - Vital Signs Vital signs: Vital Signs Temp 98.9 F 01/05/19 08:00 Pulse 78 01/05/19 08:00 Resp 22 01/05/19 08:00 BP 127/52 01/05/19 08:00 Pulse Ox 100 01/05/19 08:00 Intake & Output 01/04/19 01/05/19 01/05/19 18:59 06:59 18:59 Intake Total 200 0 220 Output Total 515 150 225 Balance -315 -150 -5 Weight 88.9 kg 87 kg Intake: Oral 200 0 220 Output: Urine 515 150 225 Other: Voiding Method Indwelling Catheter Indwelling Catheter - Exam -GENERAL: The patient is alert and oriented x2-[address] and time, oriented to person, not in any acute distress. Well developed, well nourished. HEENT: Pupils are round and equally reacting to light. EOMI. No scleral icterus. No conjunctival pallor. Normocephalic, atraumatic. No pharyngeal erythema. No thyromegaly. CARDIOVASCULAR: S1 and S2 present. No murmurs, rubs, or gallops. PULMONARY: Chest is clear to auscultation, no wheezing ABDOMEN: Soft, nontender, nondistended, normoactive bowel sounds. No palpable organomegaly. Abdominal hernia MUSCULOSKELETAL: No joint swelling or deformity. EXTREMITIES: No cyanosis, clubbing, or pedal edema. NEUROLOGICAL: Gross neurological examination did not reveal any focal deficits. SKIN: No rashes. No petechiae - Labs CBC & Chem 7: 01/04/19 05:23 01/05/19 08:49 Labs: Abnormal Lab Results - Last 24 Hours (Table) 01/04/19 01/04/19 01/04/19 Range/Units 11:14 16:36 20:36 BUN (9-20) mg/dL Creatinine (0.66-1.25) mg/dL Glucose (74-99) mg/dL POC Glucose (mg/dL) 276 H 293 H 303 H (75-99) mg/dL 01/05/19 01/05/19 Range/Units 06:32 08:49 BUN 87 H (9-20) mg/dL Creatinine 4.57 H (0.66-1.25) mg/dL Glucose 124 H (74-99) mg/dL POC Glucose (mg/dL) 169 H (75-99) mg/dL Assessment and Plan Assessment: Acute renal failure, needing hemodialysis Acute on chronic systolic heart failure with ejection fracture 30-35% with possible diastolic component Hyperkalemia, resolved Metabolic encephalopathy, secondary to above. Resolved Chronic kidney disease, mostly diabetic nephropathy. Stage III Mild Acute COPD exacerbation. Resolved History of atrial fibrillation on anticoagulation Chronic congestive heart failure Status post pacemaker COPD, not acute exacerbation History of CVA/TIA Diabetes mellitus Guarded Hyperlipidemia Hypertension Chronic sleep apnea on CPAP/BiPAP Peripheral vascular disease Plan: This is a pleasant 73 years old male who presents with hyperkalemia and acute kidney injury. Continue with Eliquis. His respiratory distress is significantly improved, continue with Lasix and monitor urine output and labs, Follow-up potassium level and creatinine level. Follow-up recommendation from pulmonary and nephrology. Continue with hemodialysis as per nephrology recommendations Adjust medication for renal dose, stop sotalol, lower Levemir from 22 units to 15 units twice a day and insulin sliding scale hold Xarelto and metformin, Lasix. Labs and medication were reviewed.. Continue same treatment. Continue with symptomatic treatment. Resume home medication. Monitor lytes and vitals. DVT and GI prophylaxis. Further recommendations of the clinical course of the patient DVT prophylaxis: Eliquis GI Prophylaxis: Pepcid Prognosis is guarded
--- NOTE | 2019-01-05 12:20 | P.PN ---
Subjective Progress Note Date: 01/05/19 Principal diagnosis: Acute on chronic kidney injury, history of chronic kidney disease stage III This is a 73-year-old male patient came into the ED because of generalized weakness,, altered mentation, dehydration, and sepsis. The patient Has been feeling weak for the past 2 weeks and significantly got worse over the past 2-3 days. . Over the past 2-3 days, the patient got worse, unable to get up, unable to walk. The patient had seen his primary care physician and lab work was ordered on outpatient basis. The labs were significantly abnormal and the patient had an acute kidney injury and acute hyperkalemia and for that reason the patient was asked to come in immediately to the emergency department. The patient denied having any chest pain. No significant cough sputum production chest that is so wheezing. No nausea or vomiting. Denies having any dysuria frequency or urgency. He had diminished urine output. In the ED, and a temperature of 97.3. He was hemodynamically stable with a BP of 136/66 and pulse ox of 99% on room air. The patient was in, was at 6 hemoglobin 11.0. He was an acute kidney injury with a BUN of 134 and a potassium level of 7.7 and a creatinine of 6.8. Serum bicarb was 14. The anion gap was 14. The patient had an EKG that showed no peaked T waves and there was no EKG is acute hyperkalemia. The patient was started on IV fluids. He was given D50 insulin and he was given also bicarb. He was asked to be moved to the intensive care unit for further evaluation. Along with fluid resuscitation and treatment, potassium level came down to 4.5. Serum bicarb is up to 24. Creatinine is down to 4.9. Calcium level is at 6.4. LFTs continue to be within normal limits. The patient is on D5 with 3 A of bicarb at the rate of 80 mL an hour. The patient is known to multiple medical problems and comorbidities. The patient was in the hospital back in 11/08/2018 for an acute kidney injury related to diarrhea and gastroenteritis. At that time he was treated and he was discharged without any major complications. His baseline creatinine was down to 1.9 on 11/16/2018. The patient has COPD stage III. The patient has history of chronic atrial fibrillation on Xarelto. He also has chronic congestion heart failure with mild impairment of LV function and ejection fraction of 40-45% and he is also diabetic with known history of peripheral vascular disease, hypertension and hyperlipidemia and previous history of CVA back in 2007. He has had previous UTI back in 2018 with E. coli. He has carotid artery disease and undergone endarterectomy on the left. On 12/31/2008 Seeing this patient for a follow-up. Overall, the patient is still stable. The patient was resuscitated IV fluids and there was some improvement in the labs which I think it's an erroneous recording as the patient's subsequent blood work that was obtained this morning showed significant abnormalities with ongoing elevation the potassium and creatinine being still elevated. The patient has chronic stage III kidney disease with a creatinine ranging between 1.6 and 1.9. He comes in with an acute kidney injury. This is probably related to medications and diminished oral intake. The patient is still receiving IV fluids. I switched him today bicarb infusion this morning. His hyperkalemia was treated with a potassium lowering cocktail where he was given bicarb and insulin. He is producing urine. Ultrasound the kidneys shows no evidence of any obstruction and there is no evidence of any hydronephrosis. The patient is resting comfortably in bed. He is afebrile for now. Urinalysis was negative for any acute infection. He was taken off anticoagulation. He is on Levemir insulin 50 units twice a day along with fine scale coverage for blood sugar control. He is also on a bicarb infusion which is running at 100 mL an hour. On 01/01/2019, the patient remains in intensive care unit. He has no specific complaints. Potassium level is normalized. Serum bicarb level is improved. Nevertheless, there is no improvement in creatinine which remains quite elevated at 6.08. BUN is 119. No significant alteration in mental status compared to yesterday. No signs of any fluid overload. He is producing urine output and the neck fluid balance the past 24 hours has been +784 mL. His urine output was 1700 over the past 24 hours. Nephritis on the case. Dialysis is being contemplated on this patient. Ultrasound the kidneys showed no evidence of any hydronephrosis. The patient off the bicarb drip and put him on a normal saline infusion. He is off the Rey inhibitors. He is also off diuretics for now. Xarelto is also on hold based on his underlying renal failure and the patient is receiving IV heparin accordingly. Reevaluated today on 01/02/2019, patient is about the same, slight improvement in his renal functioning is noted, creatinine is 5.68 today. Continues to have good urine output, patient was seen by nephrology again today, and the plan is to proceed with vascular surgery consultation for catheter placement and eventually hemodialysis. Chest x-ray is showing evidence of congestive heart failure/pulmonary edema secondary to acute renal failure. Patient remains on diuretics. Echocardiogram showed impaired left ventricle with ejection fraction of 30-55%. BUN today is 107 creatinine 5.68 CBC is relatively normal, hemoglobin is 10.5. Patient denies being short of breath, however he is on BiPAP, IPAP of 14 EPAP of 6 FiO2 is 40% Reevaluated today on 01/03/2019, patient remains in the ICU, asymptomatic, generally weak, has some bleeding around the dialysis catheter in the groin, patient did extremely well post dialysis, and over 2 L of fluids were removed. He is scheduled to undergo dialysis again today. is at bedside, and she was updated on his condition. Patient is feeling much improved compared to yesterday. He is on 8 L high flow nasal cannula, O2 saturations 98%, and the plan is to titrate his FiO2 down. WBC count is 7.9 hemoglobin is 9.6 lites are normal renal profile showed a BUN of 86 creatinine of 4.84. Chest x-ray showed mostly atypical interstitial edema, strongly doubt left lower lobe pneumonia. Reevaluated today on 01/04/2019, patient remains in the ICU, doing much better, responded well to hemodialysis, on few liters nasal cannula, chest x-ray is showing improvement in his interstitial edema. No plans for dialysis today, hence I plan to transfer the patient out of the ICU to a regular medical floor. Hemoglobin is 8.5 WBC count is 8.0 in left lites are normal BUN is 71 creatinine 4.35. Chest x-ray was reviewed, no evidence of acute pulmonary disease Reevaluated today on 01/05/2019, patient is presently an overflow in the ICU. On hemodialysis, significant improvement noted in his pulmonary status. He is now on 4 L nasal cannula, O2 saturation is in the high 90s. Patient had a chest x- ray which showed significant improvement in his interstitial edema and fluid overload. Labs today were reviewed electrodes are normal. Blood sugar is 124. Objective - Vital Signs Vital signs: Vital Signs Temp 98.9 F 01/05/19 08:00 Pulse 68 01/05/19 11:52 Resp 22 01/05/19 08:00 BP 127/52 01/05/19 08:00 Pulse Ox 100 01/05/19 08:00 Intake & Output 01/04/19 01/05/19 01/05/19 18:59 06:59 18:59 Intake Total 200 0 220 Output Total 515 150 225 Balance -315 -150 -5 Weight 88.9 kg 87 kg Intake: Oral 200 0 220 Output: Urine 515 150 225 Other: Voiding Method Indwelling Catheter Indwelling Catheter - Exam Physical Exam: Revealed 73-year-old white male in no distress, maintained on 4 L nasal cannula. Head: Atraumatic, normocephalic. HEENT:[Neck is supple.] [No neck masses.] [No thyromegaly.] [No JVD.] Chest: Minimal crackles at the bases, no rhonchi and no wheezes.. Cardiac Exam: [Normal S1 and S2, no S3 gallop, 2/6 systolic murmur thought the precordium.] Abdomen: [Soft, nontender, no megaly, no rebound, no guarding, normal bowel sounds.] Extremities: [No clubbing, no edema, no cyanosis.] Neurological Exam: [No focal neurologic deficit.] Alert and oriented 3. Psychiatric: Normal mood affect and normal mental status examination. Skin: No rashes. Lymphatics: No lymphadenopathy - Labs CBC & Chem 7: 01/04/19 05:23 01/05/19 08:49 Labs: Abnormal Lab Results - Last 24 Hours (Table) 01/04/19 01/04/19 01/05/19 Range/Units 16:36 20:36 06:32 BUN (9-20) mg/dL Creatinine (0.66-1.25) mg/dL Glucose (74-99) mg/dL POC Glucose (mg/dL) 293 H 303 H 169 H (75-99) mg/dL 01/05/19 Range/Units 08:49 BUN 87 H (9-20) mg/dL Creatinine 4.57 H (0.66-1.25) mg/dL Glucose 124 H (74-99) mg/dL POC Glucose (mg/dL) (75-99) mg/dL Assessment and Plan Assessment: Impression: 1 acute hypoxic respiratory failure secondary to pulmonary edema secondary to LV dysfunction/systolic dysfunction and fluid overload secondary to acute on chronic renal failure. 2 acute kidney injury on top of chronic stage III chronic kidney disease 3 electrolyte imbalance and metabolic acidosis with hyperkalemia secondary to acute renal failure/nonoliguric. 4 acute metabolic acidosis, resolved. 5 history of COPD 6 systolic heart failure and LV dysfunction 7 coronary artery disease 8 type 2 diabetes 9 hyperlipidemia 11 history of CVA back in 2006 12 history of atrial fibrillation currently AV paced. 13 peripheral vessel occlusive disease involving lower extremities. 14 obstructive sleep apnea noncompliant with CPAP. 15 history of hypertension. Recommendation: Continue hemodialysis as per nephrology. Continue Xarelto Avoid nephrotoxic agents. Continue GI and DVT prophylaxis Transfer out of the ICU once a bed is available. We'll sign off and follow the patient on when necessary basis. Time with Patient: Less than 30
[2019-01-05 12:26] LABS: Glucose,Whole Blood 202 mg/dL (75-99)
--- NOTE | 2019-01-05 13:55 | XR ---
EXAMINATION TYPE: XR chest 2V DATE OF EXAM: 01/05/2019 COMPARISON: 01/05/2019 at 6:08 AM HISTORY: Shortness of breath. Congestive heart failure. TECHNIQUE: Frontal and lateral views of the chest are obtained. FINDINGS: There is no focal air space opacity, pleural effusion, or pneumothorax seen. There is an e nlarged cardiomediastinal silhouette with dual lead left-sided cardiac device. Resolved interstitial edema. Minimal atelectasis near the costophrenic angle on the right. The osseous structures are int act. Mild degenerative changes of the spine and acromio clavicular joints. IMPRESSION: Resolved interstitial edema. Minimal right basilar subsegmental atelectasis.
--- NOTE | 2019-01-05 16:52 | PN ---
PROGRESS NOTE Patient is seen for followup for acute kidney injury on top of chronic kidney disease. He was admitted with severe hyperkalemia and fluid overload. Patient was dialyzed. He has received 2 treatments of hemodialysis. We held his treatment yesterday. Serum creatinine is staying at about 4.3-4.5 mg/dL. Patient has had good urine output of about 3 L over 24 hours. He is maintained on IV Lasix at 80 mg q.12 hours which I will continue. Overall, patient states he is feeling better. He denies any significant shortness of breath. PHYSICAL EXAMINATION: This morning blood pressure was 127/52, heart rate 78 per minute. He is afebrile. Examination of the heart S1, S2. Examination of the lungs, bilateral breath sounds are heard. Abdomen is soft, nontender. Examination of lower extremities shows no significant edema. LABS: Show sodium 143, potassium 3.8, BUN 87 serum creatinine 4.57, calcium 8.7. Hemoglobin was 8.5 g/dL yesterday. ASSESSMENT: 1. Acute kidney injury, acute tubular necrosis, nonoliguric, status post two treatments of hemodialysis, currently on hold. The patient has good urine output. I will continue with the Lasix and continue to hold off on dialysis for now. We will monitor for recovery of renal function. 2. Anemia, maintained on Aranesp. No significant iron deficiency noted in November of 2018. 3. Chronic kidney disease stage IIIB to IV, secondary to nephrosclerosis. Baseline creatinine around 1.9-1.6 mg/dL. PLAN: Continue with IV Lasix. Continue Aranesp. Avoid hypotension. Blood pressure has been staying on the lower side. I will hold off on the Norvasc for now. MMODL / IJN: [id number] /
[2019-01-05 17:07] LABS: Glucose,Whole Blood 367 mg/dL (75-99)
[2019-01-05 21:07] LABS: Glucose,Whole Blood 422 mg/dL (75-99)
[2019-01-05] MEDS: SERTRALINE 25 MG TAB PO SCH (21:13)
[2019-01-05] MEDS: ATORVASTATIN 40 MG TAB PO SCH (21:13)
[2019-01-05] MEDS: DONEPEZIL 5 MG TAB PO SCH (21:13)
[2019-01-06] MEDS: IPRATROPIUM-ALBUTEROL 3 ML NEB INHALATION SCH ×8 (00:19→23:45)
[2019-01-06] MEDS: methylPREDNISolone SOD SUCCI 40 MG/ML 1 ML VIAL IV SCH (02:32)
[2019-01-06 05:39] LABS: Basophils % (A) 1 %; Eosinophils # (A) 0.4 k/uL (0-0.7); Eosinophils % (A) 6 %; HCT 29.8 % (39.0-53.0); HGB 9.3 gm/dL (13.0-17.5); Lymphocytes # (A) 1.1 k/uL (1.0-4.8); Lymphocytes % (A) 16 %; MCH 30.1 pg (25.0-35.0); MCHC 31.3 g/dL (31.0-37.0); MCV 96.4 fL (80.0-100.0); Mean Platelet Volume 6.8; Monocytes # (A) 0.3 k/uL (0-1.0); Monocytes % (A) 5 %; Neutrophils # (A) 4.8 k/uL (1.3-7.7); Neutrophils % (A) 71 %; Platelet Count 192 k/uL (150-450); RBC 3.09 m/uL (4.30-5.90); RDW 13.3 % (11.5-15.5); WBC 6.8 k/uL (3.8-10.6)
[2019-01-06 06:15] LABS: Calcium 8.7 mg/dL (8.4-10.2); Potassium 3.6 mmol/L (3.5-5.1)
[2019-01-06 06:29] LABS: Glucose,Whole Blood 178 mg/dL (75-99)
[2019-01-06] MEDS: INSULIN ASPART (NovoLOG) 100 UNIT/ML VIAL SQ SCH ×4 (06:45→20:49)
[2019-01-06] MEDS: INSULIN DETEMIR (LEVEMIR) 100 UNIT/ML SYR SQ SCH ×2 (06:45→20:49)
[2019-01-06] MEDS: ASPIRIN 81 MG PO SCH (08:17)
[2019-01-06] MEDS: FAMOTIDINE 20 MG TAB PO SCH (08:17)
[2019-01-06] MEDS: FUROSEMIDE 10 MG/ML 10 ML VIAL IV SCH (08:17)
[2019-01-06] MEDS: MEMANTINE 10 MG TAB PO SCH (08:17)
[2019-01-06] MEDS: FERROUS SULFATE 325 MG TAB PO SCH (08:17)
[2019-01-06] MEDS: NICOTINE 21MG/24HR PATCH TRANSDERM SCH (08:18)
[2019-01-06 10:24] VITALS: BMI 26.5
[2019-01-06 11:56] LABS: Glucose,Whole Blood 490 mg/dL (75-99)
[2019-01-06 16:51] LABS: Glucose,Whole Blood 409 mg/dL (75-99)
--- NOTE | 2019-01-06 17:07 | PN ---
PROGRESS NOTE Patient is seen for followup for acute kidney injury on top of chronic kidney disease. He has had 2 treatments of hemodialysis, mainly for CHF and fluid overload. He was severely hyperkalemic on initial admission, which has now resolved. Patient is maintained on Lasix 80 mg q.12 hours. He has had good urine output. He denies any shortness of breath. Patient has a femoral catheter. We have been holding dialysis for the last 3 days. On examination this morning patient is sitting up in a bedside chair. He is comfortable. Blood pressure was 105/77, heart rate of 50 per minute. Patient is afebrile. EXAMINATION OF THE HEART: S1 and S2. EXAMINATION OF LUNGS: Decreased breath sounds at bases. ABDOMEN: Soft, non-tender. Examination of lower extremities shows no evidence of edema. MISSION COMMANDER exam is grossly intact. Labs show hemoglobin 9.3, sodium 143, potassium 3.6, BUN 91, serum creatinine 5.08. ASSESSMENT: 1. Acute kidney injury, most likely acute tubular necrosis, currently nonoliguric. Serum creatinine is slightly higher than yesterday. I will hold off on the evening dose of Lasix and we will switch to 40 mg q.12 hours starting tomorrow. I will hold off on hemodialysis as well for now. 2. Chronic kidney disease, NKF stage III; baseline creatinine about 1.9 to 1.6 mg/dL secondary to nephrosclerosis. 3. Severe hyperkalemia on initial admission, currently improved. 4. Anemia of chronic disease, maintained on Aranesp. PLAN: Decrease Lasix. Repeat labs in a.m. Continue to hold off on hemodialysis for now. MMODL / IJN: [id number] /
--- NOTE | 2019-01-06 17:25 | P.PN ---
Subjective Progress Note Date: 01/06/19 Principal diagnosis: Acute renal failure requiring hemodialysis Acute on chronic systolic CHF Metabolic encephalopathy 73 years old male with past medical history of heart failure, atrial fibrillation, status post pacemaker, COPD, CVA/TIA, diabetes mellitus, GERD, hyperlipidemia, hypertension, sleep apnea on CPAP/BiPAP, peripheral vascular disease. Patient feels weak and poor historian, information was taken with the help with the at bedside. As per patient was feeling weak for the last 2 weeks, which significantly got worse over the last 2-3 days, associated with low blood pressure about 52/30s 2 weeks ago when the called her PCP and recommended hydration, as per had blood pressure for the last 2 days was improved up to 109/60s, also patient was complaining of from loose bowel movement for the last 2 to 3 days at least one loose bowel movement per day , associated with vomiting for 1 week. However patient denies abdominal pain. Patient was also having poor appetite and decreased oral intake. For the last 2-3 days patient needed help to walk and get up. She called his PCP and went to see him Dr. Zarco/his nurse practitioner Katiana, and his blood work came back with worsening creatinine and high potassium, he got the call today to come to the emergency room by his PCP office Patient also is heavy smoker about 1 pack per day, occasional alcohol but no illicit drugs. He has been having some dyspnea with chronic cough and recent worsening, and sure about making any phlegm but as per he was not. Patient denies chest pain As per patient was on sotalol and coreg both at home, also he was on armodafinil for sleep problem but he was not taking it over the last few weeks. On admission vitals stable, labs showing worsening creatinine from 1.6-2.4, up to 6.8. Potassium is elevated at 7.7, ever enzymes not elevated. Hemoglobin is stable at 11, rest of CBC is unremarkable. 01/06/2019 Patient is seen and evaluated in room with family at bedside; patient has been transferred out of ICU; denies any specific complaints; family is inquiring if patient is going to be on permanent dialysis Vital signs remained stable with a temperature of 97.5, pulse 52, respirations 16 and blood pressure 151/58 with SpO2 of 97% Lab review shows a white blood count of 6.8, hemoglobin 9.3 and platelet count of 192; sodium 143, potassium 3.6 with B UN of 91/creatinine 5.08 Blood sugars remain elevated above 400; patient is on Levemir 18 units twice a day; we will increase dose of Levemir and continue with sliding scale Objective - Vital Signs Vital signs: Vital Signs Temp 97.5 F L 01/06/19 12:38 Pulse 52 L 01/06/19 12:38 Resp 16 01/06/19 12:38 BP 151/58 01/06/19 12:38 Pulse Ox 97 01/06/19 12:38 Intake & Output 01/05/19 01/06/19 01/06/19 18:59 06:59 18:59 Intake Total 220 716 Output Total 1075 650 350 Balance -855 -650 366 Weight 86.3 kg 86.3 kg Intake: Oral 220 716 Output: Urine 1075 650 350 Other: Voiding Method Indwelling Catheter Indwelling Catheter Indwelling Catheter - Exam -GENERAL: The patient is alert and oriented x2-[address] and time, oriented to person, not in any acute distress. Well developed, well nourished. HEENT: Pupils are round and equally reacting to light. EOMI. No scleral icterus. No conjunctival pallor. Normocephalic, atraumatic. No pharyngeal erythema. No thyromegaly. CARDIOVASCULAR: S1 and S2 present. No murmurs, rubs, or gallops. PULMONARY: Chest is clear to auscultation, no wheezing ABDOMEN: Soft, nontender, nondistended, normoactive bowel sounds. No palpable organomegaly. Abdominal hernia MUSCULOSKELETAL: No joint swelling or deformity. EXTREMITIES: No cyanosis, clubbing, or pedal edema. NEUROLOGICAL: Gross neurological examination did not reveal any focal deficits. SKIN: No rashes. No petechiae - Labs CBC & Chem 7: 01/06/19 05:04 01/06/19 05:04 Labs: Abnormal Lab Results - Last 24 Hours (Table) 01/05/19 01/05/19 01/06/19 Range/Units 17:03 21:04 05:04 RBC 3.09 L (4.30-5.90) m/uL Hgb 9.3 L (13.0-17.5) gm/dL Hct 29.8 L (39.0-53.0) % BUN (9-20) mg/dL Creatinine (0.66-1.25) mg/dL Glucose (74-99) mg/dL POC Glucose (mg/dL) 367 H 422 H (75-99) mg/dL 01/06/19 01/06/19 01/06/19 Range/Units 05:04 06:25 11:33 RBC (4.30-5.90) m/uL Hgb (13.0-17.5) gm/dL Hct (39.0-53.0) % BUN 91 H (9-20) mg/dL Creatinine 5.08 H (0.66-1.25) mg/dL Glucose 167 H (74-99) mg/dL POC Glucose (mg/dL) 178 H 490 H (75-99) mg/dL Assessment and Plan Assessment: Acute renal failure, needing hemodialysis Acute on chronic systolic heart failure with ejection fracture 30-35% with possible diastolic component Hyperkalemia, resolved Metabolic encephalopathy, secondary to above. Resolved Chronic kidney disease, mostly diabetic nephropathy. Stage III Mild Acute COPD exacerbation. Resolved History of atrial fibrillation on anticoagulation Chronic congestive heart failure Status post pacemaker COPD, not acute exacerbation History of CVA/TIA Diabetes mellitus Guarded Hyperlipidemia Hypertension Chronic sleep apnea on CPAP/BiPAP Peripheral vascular disease Plan: This is a pleasant 73 years old male who presents with hyperkalemia and acute kidney injury. Continue with Eliquis. His respiratory distress is significantly improved, continue with Lasix and monitor urine output and labs, Follow-up potassium level and creatinine level. Follow-up recommendation from pulmonary and nephrology. Continue with hemodialysis as per nephrology recommendations Adjust medication for renal dose, stop sotalol, lower Levemir from 22 units to 15 units twice a day and insulin sliding scale hold Xarelto and metformin, Lasix. Labs and medication were reviewed.. Continue same treatment. Continue with symptomatic treatment. Resume home medication. Monitor lytes and vitals. DVT and GI prophylaxis. Further recommendations of the clinical course of the patient DVT prophylaxis: Eliquis GI Prophylaxis: Pepcid Prognosis is guarded
[2019-01-06 20:19] LABS: Glucose,Whole Blood 490 mg/dL (75-99)
[2019-01-06 20:19] LABS: Glucose,Whole Blood 496 mg/dL (75-99)
[2019-01-06] MEDS: APIXABAN 2.5 MG TABLET PO SCH (20:49)
[2019-01-06] MEDS: ATORVASTATIN 40 MG TAB PO SCH (20:49)
[2019-01-06] MEDS: SERTRALINE 25 MG TAB PO SCH (20:49)
[2019-01-06] MEDS: DONEPEZIL 5 MG TAB PO SCH (20:49)
[2019-01-06] MEDS ORDERED: FUROSEMIDE 10 MG/ML 10 ML VIAL IV SCH (21:00)
[2019-01-07] MEDS: IPRATROPIUM-ALBUTEROL 3 ML NEB INHALATION SCH ×6 (04:22→23:08)
[2019-01-07 07:10] LABS: Glucose,Whole Blood 193 mg/dL (75-99)
[2019-01-07 08:03] LABS: Basophils # (A) 0.1 k/uL (0-0.2); Basophils % (A) 1 %; Eosinophils # (A) 0.4 k/uL (0-0.7); Eosinophils % (A) 5 %; HCT 26.7 % (39.0-53.0); HGB 8.5 gm/dL (13.0-17.5); Lymphocytes # (A) 1.5 k/uL (1.0-4.8); Lymphocytes % (A) 22 %; MCH 30.6 pg (25.0-35.0); MCHC 31.9 g/dL (31.0-37.0); MCV 95.7 fL (80.0-100.0); Mean Platelet Volume 6.8; Monocytes # (A) 0.4 k/uL (0-1.0); Monocytes % (A) 6 %; Neutrophils # (A) 4.1 k/uL (1.3-7.7); Neutrophils % (A) 63 %; Platelet Count 184 k/uL (150-450); RBC 2.79 m/uL (4.30-5.90); RDW 13.2 % (11.5-15.5); WBC 6.5 k/uL (3.8-10.6)
[2019-01-07 09:00] LABS: Calcium 8.5 mg/dL (8.4-10.2); Potassium 4.1 mmol/L (3.5-5.1)
[2019-01-07] MEDS: INSULIN ASPART (NovoLOG) 100 UNIT/ML VIAL SQ SCH ×5 (09:38→20:41)
--- NOTE | 2019-01-07 09:58 | XR ---
EXAMINATION TYPE: XR chest 1V DATE OF EXAM: 01/07/2019 HISTORY: chf. REFERENCE: Previous study dated 01/05/2019. FINDINGS: There is a bipolar pacemaker place on the left. The heart is enlarged. Mild vascular congestion without glynn edema. Pleural spaces are clear. IMPRESSION: CARDIOMEGALY AND VASCULAR CONGESTION.
[2019-01-07] MEDS: INSULIN DETEMIR (LEVEMIR) 100 UNIT/ML SYR SQ SCH ×2 (10:13→20:42)
[2019-01-07] MEDS: APIXABAN 2.5 MG TABLET PO SCH ×2 (10:13→20:41)
[2019-01-07] MEDS: ASPIRIN 81 MG PO SCH (10:13)
[2019-01-07] MEDS: FERROUS SULFATE 325 MG TAB PO SCH (10:13)
[2019-01-07] MEDS: MEMANTINE 10 MG TAB PO SCH (10:13)
[2019-01-07] MEDS: FAMOTIDINE 20 MG TAB PO SCH (10:13)
[2019-01-07] MEDS: NICOTINE 21MG/24HR PATCH TRANSDERM SCH (10:14)
[2019-01-07] MEDS: FUROSEMIDE 10 MG/ML 4 ML VIAL IV SCH (10:26)
[2019-01-07 11:19] LABS: Glucose,Whole Blood 221 mg/dL (75-99)
--- NOTE | 2019-01-07 14:29 | PN ---
PROGRESS NOTE Patient is seen for followup for acute kidney injury on top of chronic kidney disease. We have been holding off on dialysis. Lasix was decreased yesterday. The patient denied any significant shortness of breath. He has not done much and he was just starting to get up today when I saw him. is present at bedside. PHYSICAL EXAMINATION: On examination this morning, blood pressure was 111/50, heart rate 68 per minute. He is afebrile. EXAMINATION OF THE HEART: S1, S2. EXAMINATION OF THE LUNGS: Bilateral breath sounds are heard. Abdomen is soft, nontender. Examination of the lower extremities shows no evidence of edema. QUALITY AUDIT REPRESENTATIVE exam shows patient is moving all 4 extremities. LABS: Labs show sodium 137, potassium 4.1, BUN 103, creatinine 5.0, and hemoglobin 8.5 g/dL. ASSESSMENT: 1. Acute kidney injury mostly acute tubular necrosis, status post 2 treatments of hemodialysis. Serum creatinine remains elevated, although not worsening. Diuretics have been decreased. Repeat labs in a.m. The patient is currently not on any nephrotoxic medications. 2. Chronic kidney disease NKF stage 3. Baseline creatinine about 1.9 to 1.6 mg/dL secondary to nephrosclerosis. 3. Anemia, maintained on Aranesp. 4. Fluid overload currently improved. Lasix has been decreased. 5. Severe hyperkalemia on initial admission, now resolved. PLAN: Maintain Lasix 40 mg daily. Repeat labs in a.m. Hold off on hemodialysis over the weekend. Repeat labs in a.m. MMMILI / IMMANUEL: [id number] /
--- NOTE | 2019-01-07 16:15 | P.PN ---
Subjective Progress Note Date: 01/07/19 Principal diagnosis: Acute renal failure requiring hemodialysis Acute on chronic systolic CHF Metabolic encephalopathy 73 years old male with past medical history of heart failure, atrial fibrillation, status post pacemaker, COPD, CVA/TIA, diabetes mellitus, GERD, hyperlipidemia, hypertension, sleep apnea on CPAP/BiPAP, peripheral vascular disease. Patient feels weak and poor historian, information was taken with the help with the at bedside. As per patient was feeling weak for the last 2 weeks, which significantly got worse over the last 2-3 days, associated with low blood pressure about 52/30s 2 weeks ago when the called her PCP and recommended hydration, as per had blood pressure for the last 2 days was improved up to 109/60s, also patient was complaining of from loose bowel movement for the last 2 to 3 days at least one loose bowel movement per day , associated with vomiting for 1 week. However patient denies abdominal pain. Patient was also having poor appetite and decreased oral intake. For the last 2-3 days patient needed help to walk and get up. She called his PCP and went to see him Dr. Zarco/his nurse practitioner Katiana, and his blood work came back with worsening creatinine and high potassium, he got the call today to come to the emergency room by his PCP office Patient also is heavy smoker about 1 pack per day, occasional alcohol but no illicit drugs. He has been having some dyspnea with chronic cough and recent worsening, and sure about making any phlegm but as per he was not. Patient denies chest pain As per patient was on sotalol and coreg both at home, also he was on armodafinil for sleep problem but he was not taking it over the last few weeks. On admission vitals stable, labs showing worsening creatinine from 1.6-2.4, up to 6.8. Potassium is elevated at 7.7, ever enzymes not elevated. Hemoglobin is stable at 11, rest of CBC is unremarkable. 01/06/2019 Patient is seen and evaluated in room with family at bedside; patient has been transferred out of ICU; denies any specific complaints; family is inquiring if patient is going to be on permanent dialysis Vital signs remained stable with a temperature of 97.5, pulse 52, respirations 16 and blood pressure 151/58 with SpO2 of 97% Lab review shows a white blood count of 6.8, hemoglobin 9.3 and platelet count of 192; sodium 143, potassium 3.6 with B UN of 91/creatinine 5.08 Blood sugars remain elevated above 400; patient is on Levemir 18 units twice a day; we will increase dose of Levemir and continue with sliding scale 01/07/2019 Patient is seen and evaluated with at bedside; vital signs remained stable with a blood pressure 111/50, pulse of 68 Lab review shows a sodium of 137, potassium 4.1, BUN 103, creatinine 5.0 and hemoglobin of 8.5 Nephrology is following for acute renal injury secondary to acute tubular necrosis; patient has had 2 treatments of hemodialysis; nephrology is recommending to hold off on hemodialysis over the weekend and continue to monitor renal function and electrolytes Objective - Vital Signs Vital signs: Vital Signs Temp 97.8 F 01/07/19 05:00 Pulse 81 01/07/19 11:18 Resp 20 01/07/19 05:00 BP 111/50 01/07/19 05:00 Pulse Ox 100 01/07/19 05:00 Intake & Output 01/06/19 01/07/19 01/07/19 18:59 06:59 18:59 Intake Total 1856 250 100 Output Total 1200 450 Balance 656 -200 100 Weight 86.3 kg 86.3 kg Intake: Oral 1856 250 100 Output: Urine 1200 450 Other: Voiding Method Indwelling Catheter Indwelling Catheter Indwelling Catheter - Exam -GENERAL: The patient is alert and oriented x2-[address] and time, oriented to person, not in any acute distress. Well developed, well nourished. HEENT: Pupils are round and equally reacting to light. EOMI. No scleral icterus. No conjunctival pallor. Normocephalic, atraumatic. No pharyngeal erythema. No thyromegaly. CARDIOVASCULAR: S1 and S2 present. No murmurs, rubs, or gallops. PULMONARY: Chest is clear to auscultation, no wheezing ABDOMEN: Soft, nontender, nondistended, normoactive bowel sounds. No palpable organomegaly. Abdominal hernia MUSCULOSKELETAL: No joint swelling or deformity. EXTREMITIES: No cyanosis, clubbing, or pedal edema. NEUROLOGICAL: Gross neurological examination did not reveal any focal deficits. SKIN: No rashes. No petechiae - Labs CBC & Chem 7: 01/07/19 07:35 01/07/19 07:35 Labs: Abnormal Lab Results - Last 24 Hours (Table) 01/06/19 01/06/19 01/06/19 Range/Units 16:45 20:06 20:08 RBC (4.30-5.90) m/uL Hgb (13.0-17.5) gm/dL Hct (39.0-53.0) % BUN (9-20) mg/dL Creatinine (0.66-1.25) mg/dL Glucose (74-99) mg/dL POC Glucose (mg/dL) 409 H 490 H 496 H (75-99) mg/dL 01/07/19 01/07/19 01/07/19 Range/Units 07:02 07:35 07:35 RBC 2.79 L (4.30-5.90) m/uL Hgb 8.5 L (13.0-17.5) gm/dL Hct 26.7 L (39.0-53.0) % BUN 103 H* (9-20) mg/dL Creatinine 5.03 H (0.66-1.25) mg/dL Glucose 193 H (74-99) mg/dL POC Glucose (mg/dL) 193 H (75-99) mg/dL 01/07/19 Range/Units 11:09 RBC (4.30-5.90) m/uL Hgb (13.0-17.5) gm/dL Hct (39.0-53.0) % BUN (9-20) mg/dL Creatinine (0.66-1.25) mg/dL Glucose (74-99) mg/dL POC Glucose (mg/dL) 221 H (75-99) mg/dL Assessment and Plan Assessment: Acute renal failure, needing hemodialysis Acute on chronic systolic heart failure with ejection fracture 30-35% with possible diastolic component Hyperkalemia, resolved Metabolic encephalopathy, secondary to above. Resolved Chronic kidney disease, mostly diabetic nephropathy. Stage III Mild Acute COPD exacerbation. Resolved History of atrial fibrillation on anticoagulation Chronic congestive heart failure Status post pacemaker COPD, not acute exacerbation History of CVA/TIA Diabetes mellitus Guarded Hyperlipidemia Hypertension Chronic sleep apnea on CPAP/BiPAP Peripheral vascular disease Plan: This is a pleasant 73 years old male who presents with hyperkalemia and acute kidney injury. Continue with Eliquis. His respiratory distress is significantly improved, continue with Lasix and monitor urine output and labs, Follow-up potassium level and creatinine level. Follow-up recommendation from pulmonary and nephrology. Continue with hemodialysis as per nephrology recommendations Adjust medication for renal dose, stop sotalol, lower Levemir from 22 units to 15 units twice a day and insulin sliding scale hold Xarelto and metformin, Lasix. Labs and medication were reviewed.. Continue same treatment. Continue with symptomatic treatment. Resume home medication. Monitor lytes and vitals. DVT and GI prophylaxis. Further recommendations of the clinical course of the patient DVT prophylaxis: Eliquis GI Prophylaxis: Pepcid Prognosis is guarded Time with Patient: Greater than 30
[2019-01-07 17:18] LABS: Glucose,Whole Blood 157 mg/dL (75-99)
[2019-01-07 20:17] LABS: Glucose,Whole Blood 164 mg/dL (75-99)
[2019-01-07] MEDS: SERTRALINE 25 MG TAB PO SCH (20:41)
[2019-01-07] MEDS: ATORVASTATIN 40 MG TAB PO SCH (20:41)
[2019-01-07] MEDS: DONEPEZIL 5 MG TAB PO SCH (20:41)
[2019-01-08] MEDS: IPRATROPIUM-ALBUTEROL 3 ML NEB INHALATION SCH ×6 (03:45→23:37)
[2019-01-08 07:09] LABS: Glucose,Whole Blood 214 mg/dL (75-99)
[2019-01-08 07:18] LABS: Basophils # (A) 0.1 k/uL (0-0.2); Basophils % (A) 1 %; Eosinophils # (A) 0.4 k/uL (0-0.7); Eosinophils % (A) 5 %; HCT 27.9 % (39.0-53.0); HGB 8.8 gm/dL (13.0-17.5); Lymphocytes # (A) 1.5 k/uL (1.0-4.8); Lymphocytes % (A) 22 %; MCH 30.8 pg (25.0-35.0); MCHC 31.4 g/dL (31.0-37.0); Mean Platelet Volume 7.5; Monocytes # (A) 0.3 k/uL (0-1.0); Monocytes % (A) 5 %; Neutrophils # (A) 4.5 k/uL (1.3-7.7); Neutrophils % (A) 65 %; Platelet Count 216 k/uL (150-450); RBC 2.85 m/uL (4.30-5.90); RDW 13.1 % (11.5-15.5); WBC 6.9 k/uL (3.8-10.6)
[2019-01-08 07:35] LABS: Calcium 8.7 mg/dL (8.4-10.2); Potassium 3.9 mmol/L (3.5-5.1)
[2019-01-08] MEDS: APIXABAN 2.5 MG TABLET PO SCH (07:55)
[2019-01-08] MEDS: FUROSEMIDE 10 MG/ML 4 ML VIAL IV SCH (07:55)
[2019-01-08] MEDS: NICOTINE 21MG/24HR PATCH TRANSDERM SCH (07:55)
[2019-01-08] MEDS: INSULIN DETEMIR (LEVEMIR) 100 UNIT/ML SYR SQ SCH ×2 (07:55→21:45)
[2019-01-08] MEDS: MEMANTINE 10 MG TAB PO SCH (07:55)
[2019-01-08] MEDS: ASPIRIN 81 MG PO SCH (07:55)
[2019-01-08] MEDS: FERROUS SULFATE 325 MG TAB PO SCH (07:55)
[2019-01-08] MEDS: FAMOTIDINE 20 MG TAB PO SCH (07:55)
[2019-01-08] MEDS: INSULIN ASPART (NovoLOG) 100 UNIT/ML VIAL SQ SCH ×4 (07:56→21:45)
[2019-01-08 11:52] LABS: Glucose,Whole Blood 184 mg/dL (75-99)
--- NOTE | 2019-01-08 12:44 | P.PN ---
Subjective Progress Note Date: 01/08/19 Principal diagnosis: Acute renal failure requiring hemodialysis Acute on chronic systolic CHF Metabolic encephalopathy 73 years old male with past medical history of heart failure, atrial fibrillation, status post pacemaker, COPD, CVA/TIA, diabetes mellitus, GERD, hyperlipidemia, hypertension, sleep apnea on CPAP/BiPAP, peripheral vascular disease. Patient feels weak and poor historian, information was taken with the help with the at bedside. As per patient was feeling weak for the last 2 weeks, which significantly got worse over the last 2-3 days, associated with low blood pressure about 52/30s 2 weeks ago when the called her PCP and recommended hydration, as per had blood pressure for the last 2 days was improved up to 109/60s, also patient was complaining of from loose bowel movement for the last 2 to 3 days at least one loose bowel movement per day , associated with vomiting for 1 week. However patient denies abdominal pain. Patient was also having poor appetite and decreased oral intake. For the last 2-3 days patient needed help to walk and get up. She called his PCP and went to see him Dr. Zarco/his nurse practitioner Katiana, and his blood work came back with worsening creatinine and high potassium, he got the call today to come to the emergency room by his PCP office Patient also is heavy smoker about 1 pack per day, occasional alcohol but no illicit drugs. He has been having some dyspnea with chronic cough and recent worsening, and sure about making any phlegm but as per he was not. Patient denies chest pain As per patient was on sotalol and coreg both at home, also he was on armodafinil for sleep problem but he was not taking it over the last few weeks. On admission vitals stable, labs showing worsening creatinine from 1.6-2.4, up to 6.8. Potassium is elevated at 7.7, ever enzymes not elevated. Hemoglobin is stable at 11, rest of CBC is unremarkable. 01/06/2019 Patient is seen and evaluated in room with family at bedside; patient has been transferred out of ICU; denies any specific complaints; family is inquiring if patient is going to be on permanent dialysis Vital signs remained stable with a temperature of 97.5, pulse 52, respirations 16 and blood pressure 151/58 with SpO2 of 97% Lab review shows a white blood count of 6.8, hemoglobin 9.3 and platelet count of 192; sodium 143, potassium 3.6 with B UN of 91/creatinine 5.08 Blood sugars remain elevated above 400; patient is on Levemir 18 units twice a day; we will increase dose of Levemir and continue with sliding scale 01/07/2019 Patient is seen and evaluated with at bedside; vital signs remained stable with a blood pressure 111/50, pulse of 68 Lab review shows a sodium of 137, potassium 4.1, BUN 103, creatinine 5.0 and hemoglobin of 8.5 Nephrology is following for acute renal injury secondary to acute tubular necrosis; patient has had 2 treatments of hemodialysis; nephrology is recommending to hold off on hemodialysis over the weekend and continue to monitor renal function and electrolytes 01/08/2019 Patient is seen and evaluated resting comfortably in bed; was is no specific complaints Vital signs remained stable with a temperature of 98.1, pulse 68, respiration 18 and blood pressure 131/63 with SpO2 of 95% on room air Lab review shows a white blood count of 6.9, hemoglobin remained stable at 8.8 and platelet count of 216; sodium of 139, potassium 3.9, BUN 103 with creatinine of 5.22; blood sugars ranging between 178-214 Review off chest x-ray done on 01/07/2019 continues to show cardiomegaly and mild vascular congestion Nephrology is following for acute renal failure/HD; recommending to hold off on hemodialysis over the weekend; patient will be evaluated on Wednesday for final decision on need for ongoing hemodialysis post discharge Objective - Vital Signs Vital signs: Vital Signs Temp 98.1 F 01/08/19 05:00 Pulse 72 01/08/19 09:15 Resp 18 01/08/19 08:00 BP 131/63 01/08/19 05:00 Pulse Ox 95 01/08/19 05:00 Intake & Output 01/07/19 01/08/19 01/08/19 18:59 06:59 18:59 Intake Total 200 0 Output Total 600 750 Balance -400 -750 Weight 86.3 kg Intake: Oral 200 0 Output: Urine 600 750 Other: Voiding Method Indwelling Catheter Indwelling Catheter Indwelling Catheter - Exam -GENERAL: The patient is alert and oriented x2-[address] and time, o riented to person, not in any acute distress. Well developed, well nourished. HEENT: Pupils are round and equally reacting to light. EOMI. No scleral icterus. No conjunctival pallor. Normocephalic, atraumatic. No pharyngeal erythema. No thyromegaly. CARDIOVASCULAR: S1 and S2 present. No murmurs, rubs, or gallops. PULMONARY: Chest is clear to auscultation, no wheezing ABDOMEN: Soft, nontender, nondistended, normoactive bowel sounds. No palpable organomegaly. Abdominal hernia MUSCULOSKELETAL: No joint swelling or deformity. EXTREMITIES: No cyanosis, clubbing, or pedal edema. NEUROLOGICAL: Gross neurological examination did not reveal any focal deficits. SKIN: No rashes. No petechiae - Labs CBC & Chem 7: 01/08/19 06:40 01/08/19 06:40 Labs: Abnormal Lab Results - Last 24 Hours (Table) 01/07/19 01/07/19 01/07/19 Range/Units 11:09 17:10 20:13 RBC (4.30-5.90) m/uL Hgb (13.0-17.5) gm/dL Hct (39.0-53.0) % BUN (9-20) mg/dL Creatinine (0.66-1.25) mg/dL Glucose (74-99) mg/dL POC Glucose (mg/dL) 221 H 157 H 164 H (75-99) mg/dL 01/08/19 01/08/19 01/08/19 Range/Units 06:40 06:40 07:04 RBC 2.85 L (4.30-5.90) m/uL Hgb 8.8 L (13.0-17.5) gm/dL Hct 27.9 L (39.0-53.0) % BUN 103 H* (9-20) mg/dL Creatinine 5.22 H (0.66-1.25) mg/dL Glucose 178 H (74-99) mg/dL POC Glucose (mg/dL) 214 H (75-99) mg/dL Assessment and Plan Assessment: Acute renal failure, needing hemodialysis Acute on chronic systolic heart failure with ejection fracture 30-35% with possible diastolic component Hyperkalemia, resolved Metabolic encephalopathy, secondary to above. Resolved Chronic kidney disease, mostly diabetic nephropathy. Stage III Mild Acute COPD exacerbation. Resolved History of atrial fibrillation on anticoagulation Chronic congestive heart failure Status post pacemaker COPD, not acute exacerbation History of CVA/TIA Diabetes mellitus Guarded Hyperlipidemia Hypertension Chronic sleep apnea on CPAP/BiPAP Peripheral vascular disease Plan: This is a pleasant 73 years old male who presents with hyperkalemia and acute kidney injury. Continue with Eliquis. His respiratory distress is significantly improved, continue with Lasix and monitor urine output and labs, Follow-up potassium level and creatinine level. Follow-up recommendation from pulmonary and nephrology. Continue with hemodialysis as per nephrology recommendations Adjust medication for renal dose, stop sotalol, lower Levemir from 22 units to 15 units twice a day and insulin sliding scale hold Xarelto and metformin, Lasix. Labs and medication were reviewed.. Continue same treatment. Continue with symptomatic treatment. Resume home medication. Monitor lytes and vitals. DVT and GI prophylaxis. Further recommendations of the clinical course of the patient DVT prophylaxis: Eliquis GI Prophylaxis: Pepcid Prognosis is guarded Time with Patient: Greater than 30
[2019-01-08 16:56] LABS: Glucose,Whole Blood 400 mg/dL (75-99)
--- NOTE | 2019-01-08 18:43 | PN ---
PROGRESS NOTE Patient is seen for followup for chronic kidney disease and acute kidney injury. We had held his dialysis over the last 4-5 days. However, serum creatinine has not improved significantly even after decreasing the Lasix. Patient was a little bit more weak today. His BUN has also increased to 103. At this time we will proceed with continuation of renal replacement therapy. Chest x-ray continues to show vascular congestion. We will plan on hemodialysis tomorrow and I will have Dr. Ba place an IJ PermCath for outpatient dialysis. We will also proceed with the discharge planning and chair time placement for outpatient dialysis. PHYSICAL EXAMINATION: This morning patient is comfortable awake he is not in any acute distress. He denies any significant complaints except for mild shortness of breath. Blood pressure this morning was 131/63, heart rate 60 per minute, he is afebrile. Examination of the heart S1, S2. Examination of the lungs, bilateral breath sounds are heard. Decreased breath sounds at bases. Abdomen is soft, nontender. Examination lower extremities shows no significant edema. MANUFACTURING QUALITY TECHNICIAN exam grossly intact. LAB: Show from today sodium 139, potassium 3.9, BUN 103, creatinine 5.2. ASSESSMENT: 1. Acute kidney injury, most likely acute tubular necrosis. UA is quite benign with renal function currently not improving much. The patient had 2 treatments of hemodialysis. We have been holding treatment for possible recovery of kidney function. However, creatinine remains elevated even after decreasing the Lasix. There are no other nephrotoxic agents on board. Blood pressure has not been significantly low. The patient has an indwelling Fernández catheter so there was no urine retention or obstructive uropathy. I will proceed with IJ PermCath placement and we will plan on hemodialysis tomorrow with placement for outpatient dialysis. We will continue to monitor renal function recovery as outpatient. 2. Chronic kidney disease stage 3 with baseline creatinine about 1.7-1.9 mg/dL secondary to nephrosclerosis. 3. Anemia, no active bleeding noted, maintained on Aranesp. 4. Fluid overload, somewhat improved. Chest x-ray continues to show pulmonary vascular congestion. 5. Severe hyperkalemia on initial admission, now resolved. PLAN: Hemodialysis in a.m. Consult vascular surgery for placement of IJ PermCath and consult discharge planning for set up for outpatient hemodialysis. MMODL / IJN: [id number] /
[2019-01-08 20:49] LABS: Glucose,Whole Blood 452 mg/dL (75-99)
[2019-01-08] MEDS: ATORVASTATIN 40 MG TAB PO SCH (21:44)
[2019-01-08] MEDS: DONEPEZIL 5 MG TAB PO SCH (21:44)
[2019-01-08] MEDS: SERTRALINE 25 MG TAB PO SCH (21:46)
[2019-01-08] MEDS ORDERED: INSULIN ASPART (NovoLOG) 100 UNIT/ML VIAL SQ ONE (22:08)
[2019-01-09] MEDS: IPRATROPIUM-ALBUTEROL 3 ML NEB INHALATION SCH ×6 (04:04→23:29)
[2019-01-09 07:03] LABS: Glucose,Whole Blood 197 mg/dL (75-99)
[2019-01-09] MEDS: INSULIN ASPART (NovoLOG) 100 UNIT/ML VIAL SQ SCH ×4 (07:31→20:59)
[2019-01-09] MEDS: INSULIN DETEMIR (LEVEMIR) 100 UNIT/ML SYR SQ SCH ×2 (07:31→21:00)
[2019-01-09] MEDS: FAMOTIDINE 20 MG TAB PO SCH (07:32)
[2019-01-09] MEDS: FUROSEMIDE 10 MG/ML 4 ML VIAL IV SCH (07:32)
[2019-01-09] MEDS: NICOTINE 21MG/24HR PATCH TRANSDERM SCH (07:32)
[2019-01-09] MEDS: FERROUS SULFATE 325 MG TAB PO SCH (07:32)
[2019-01-09] MEDS: MEMANTINE 10 MG TAB PO SCH (07:33)
[2019-01-09] MEDS: ASPIRIN 81 MG PO SCH (07:42)
--- NOTE | 2019-01-09 07:55 | P.PN ---
Subjective This is a pleasant 73 years old male with past medical history of heart failure, atrial fibrillation, status post pacemaker, COPD, CVA/TIA, diabetes mellitus, GERD, hyperlipidemia, hypertension, sleep apnea on CPAP/BiPAP, peripheral vascular disease. Patient feels weak and poor historian, information was taken with the help with the at bedside. As per patient was feeling weak for the last 2 weeks, which significantly got worse over the last 2-3 days, associated with low blood pressure about 52/30s 2 weeks ago when the called her PCP and recommended hydration, as per had blood pressure for the last 2 days was improved up to 109/60s, also patient was complaining of from loose bowel movement for the last 2 to 3 days at least one loose bowel movement per day , associated with vomiting for 1 week. However patient denies abdominal pain. Patient was also having poor appetite and decreased oral intake. For the last 2-3 days patient needed help to walk and get up. She called his PCP and went to see him Dr. Zarco/his nurse practitioner Katiana, and his blood work came back with worsening creatinine and high potassium, he got the call today to come to the emergency room by his PCP office Patient also is heavy smoker about 1 pack per day, occasional alcohol but no illicit drugs. He has been having some dyspnea with chronic cough and recent worsening, and sure about making any phlegm but as per he was not. Patient denies chest pain As per patient was on sotalol and coreg both at home, also he was on a rmodafinil for sleep problem but he was not taking it over the last few weeks. On admission vitals stable, labs showing worsening creatinine from 1.6-2.4, up to 6.8. Potassium is elevated at 7.7, ever enzymes not elevated. Hemoglobin is stable at 11, rest of CBC is unremarkable. 12/31/2018 Patient is awake and alert with no chest pain or dyspnea. No coughing. He still feels generally weak. Not complaining of from pain. No urinary complaints, his blood pressure is 90/34, heart rate is 66. his sotalol was stopped. His potassium this morning is 7.2 and 6.5, creatinine is persistently elevated at 6.4 and 6.5. Sugar is on the high side, we going to increase his Levemir to 15 units twice a day. Patient has normal renal ultrasound. Urine culture are still pending. Nephrology and pulmonary team input is appreciated. Patient to continue on bicarbonate drip. Nephrology team are considering renal replacement therapy and hemodialysis. Eliquis was stopped upon recommendation of link trainer for patient might need a renal catheter. And instead we will put the patient on subcu heparin. Medial drain is added for blood pressure support 01/01/2019 Patient remains in the ICU with no new complaints. He is not in distress. No chest pain or dyspnea. He still generally weak. Vital signs stable. Creatinine is 6.0 today, patient remains on heparin drip as his Eliquis was held for possible need for hemodialysis. Change bicarb drip to normal saline as per link trainer recommendation. No need for renal replacement therapy today as per link trainer. We'll keep monitoring 01/02/2019 Patient remains in the ICU, patient clinically the same with no dyspnea or chest pain. Patient is hemodynamically stable with blood pressure 155/73 cartridges low 60s. Coreg and sotalol remain on hold. His creatinine slightly came down today from 6.0 to 5.6. Potassium 4.2. Sugar is controlled today 108-177, patient remains on Levemir 15 units twice a day, liver enzymes were not baldomero vated. Final urine culture showing no growth. On admission his Xarelto was stopped and patient was placed on heparin drip, For his history of atrial fibrillation, Patient is followed closely by pulmonary and nephrology teams. 01/03/2019 Patient a week with no new complaint, he is generally weak with some tachypnea. No cough and no chest pain. Patient got hemodialysis yesterday and 2 L were t aken out, and this morning he is under going to same with hemodialysis and 2 L of fluids are removed. Speech and swallow evaluation has been consulted. Vitals are stable. Labs looked stable with creatinine 4.8, hemoglobin stable while on heparin drip., Sugar is controlled. This morning is still elevated. Patient was also placed on Lasix 80 mg twice daily. Is currently on Levemir 12 units twice a day and sliding scale. His blood pressure 118/69 while off sotalol and Coreg which are held on admission 01/04/2019 Patient remains in the ICU, has a breathing is quiet with no dyspnea. He denies cough is well. He is saturating 96% on 4 L oxygen. No showing slightly low hemoglobin at 8.5. Creatinine is slightly lower today at 4.35. Sugar is slightly elevated on 121-367. Chest x-ray showing no infiltrates . And improved edema. 01/05/2019 Patient in the ICU, he looks improved and more comfortable than before. He denies dyspnea or chest pain. He is saturating 100% on 2 L oxygen per minute via nasal cannula. He is still tachypneic with respiratory rate around 22 .No other abdominal or urinary complaints. He hemodynamically he is a stable. Creatinine is stable at 4.5 today. Electrolytes are within normal limits. Urinalysis is negative. Chest x-ray: Mild interstitial edema. He remains on Eliquis and Lasix 80 mg twice daily. His glucose is slightly elevated 169-303 and he is currently getting Levemir 15 units twice a day, which we are going to increase it to 18 units twice daily 01/09/2019 Patient lying in bed comfortable with no chest pain or dyspnea. He remains on hemodialysis with stable creatinine, patient is hemodynamically stable. Labs reviewed and stable. Patient landed to get permacath placement for ongoing hemodialysis while nephrology following the case closely. Eliquis is on hold temporarily for catheter placement Objective - Vital Signs Vital signs: Vital Signs Temp 97.8 F 01/09/19 06:01 Pulse 76 01/09/19 07:22 Resp 16 01/09/19 06:01 BP 127/65 01/09/19 06:01 Pulse Ox 96 01/09/19 06:01 Intake & Output 01/08/19 01/09/19 01/09/19 18:59 06:59 18:59 Intake Total 600 Output Total 800 700 Balance -200 -700 Intake: Oral 600 Output: Urine 800 700 Other: Voiding Method Indwelling Catheter Indwelling Catheter # Voids 2 # Bowel Movements 0 - Exam -GENERAL: The patient is alert and oriented x2-[address] and time, oriented to person, not in any acute distress. Well developed, well nourished. HEENT: Pupils are round and equally reacting to light. EOMI. No scleral icterus. No conjunctival pallor. Normocephalic, atraumatic. No pharyngeal erythema. No thyromegaly. CARDIOVASCULAR: S1 and S2 present. No murmurs, rubs, or gallops. PULMONARY: Chest is clear to auscultation, no wheezing ABDOMEN: Soft, nontender, nondistended, normoactive bowel sounds. No palpable organomegaly. Abdominal hernia MUSCULOSKELETAL: No joint swelling or deformity. EXTREMITIES: No cyanosis, clubbing, or pedal edema. NEUROLOGICAL: Gross neurological examination did not reveal any focal deficits. SKIN: No rashes. No petechiae - Labs CBC & Chem 7: 01/08/19 06:40 01/08/19 06:40 Labs: Abnormal Lab Results - Last 24 Hours (Table) 01/08/19 01/08/19 01/08/19 Range/Units 06:40 11:46 16:45 BUN 103 H* (9-20) mg/dL Creatinine 5.22 H (0.66-1.25) mg/dL Glucose 178 H (74-99) mg/dL POC Glucose (mg/dL) 184 H 400 H (75-99) mg/dL 01/08/19 01/09/19 Range/Units 20:47 06:59 BUN (9-20) mg/dL Creatinine (0.66-1.25) mg/dL Glucose (74-99) mg/dL POC Glucose (mg/dL) 452 H 197 H (75-99) mg/dL Assessment and Plan Assessment: Acute renal failure, needing hemodialysis Acute on chronic systolic heart failure with ejection fracture 30-35% with possible diastolic component Hyperkalemia, resolved Metabolic encephalopathy, secondary to above. Resolved Chronic kidney disease, mostly diabetic nephropathy. Stage III Mild Acute COPD exacerbation. Resolved History of atrial fibrillation on anticoagulation Chronic congestive heart failure Status post pacemaker COPD, not acute exacerbation History of CVA/TIA Diabetes mellitus Guarded Hyperlipidemia Hypertension Chronic sleep apnea on CPAP/BiPAP Peripheral vascular disease Plan: This is a pleasant 73 years old male who presents with hyperkalemia and acute kidney injury. Continue with Eliquis after permacath placement. His respiratory distress is significantly improved, planned for permacath placement, Follow-up potassium level and creatinine level. Follow-up recommendation from pulmonary and nephrology. Continue with hemodialysis as per nephrology recommendations Adjust medication for renal dose, stop sotalol, lower Levemir from 22 units to 15 units twice a day and insulin sliding scale hold Xarelto and metformin, Lasix. Labs and medication were reviewed.. Continue same treatment. Continue with symptomatic treatment. Resume home medication. Monitor lytes and vitals. DVT and GI prophylaxis. Further recommendations of the clinical course of the patient DVT prophylaxis: Eliquis GI Prophylaxis: Pepcid Prognosis is guarded
[2019-01-09 08:02] LABS: Basophils # (A) 0.1 k/uL (0-0.2); Basophils % (A) 1 %; Eosinophils # (A) 0.3 k/uL (0-0.7); Eosinophils % (A) 4 %; HCT 28.7 % (39.0-53.0); HGB 8.8 gm/dL (13.0-17.5); Lymphocytes # (A) 1.4 k/uL (1.0-4.8); Lymphocytes % (A) 21 %; MCH 29.9 pg (25.0-35.0); MCHC 30.8 g/dL (31.0-37.0); MCV 97.3 fL (80.0-100.0); Mean Platelet Volume 7.5; Monocytes # (A) 0.4 k/uL (0-1.0); Monocytes % (A) 6 %; Neutrophils # (A) 4.5 k/uL (1.3-7.7); Neutrophils % (A) 66 %; Platelet Count 246 k/uL (150-450); RBC 2.95 m/uL (4.30-5.90); RDW 13.2 % (11.5-15.5); WBC 6.8 k/uL (3.8-10.6)
[2019-01-09 08:13] LABS: Calcium 8.9 mg/dL (8.4-10.2); Potassium 3.8 mmol/L (3.5-5.1)
[2019-01-09 11:55] LABS: Glucose,Whole Blood 277 mg/dL (75-99)
--- NOTE | 2019-01-09 13:50 | PN ---
PROGRESS NOTE Patient is seen for followup for acute kidney injury on top of chronic kidney disease. Over the weekend, we held dialysis; however, creatinine continues to increase. Patient's chest x-ray shows some evidence of vascular congestion. He has had good urine output. The plan is to proceed with dialysis and maintain outpatient dialysis for now with continued monitoring for possible recovery of renal function. This morning, patient is comfortable. He denies any complaints. He is lying in bed. He is not in any acute distress. PHYSICAL EXAMINATION: Blood pressure 127/65, heart rate of 57 per minute. He is afebrile. EXAMINATION OF THE HEART: S1, S2. EXAMINATION OF THE LUNGS: Bilateral breath sounds are heard. Abdomen is soft, nontender. Examination of lower extremities shows no significant edema. MANAGER GROUP EXAM: Grossly intact. LABS: Labs show sodium 140, potassium 3.8, BUN 108, serum creatinine 5.28, hemoglobin 8.8 g/dL. ASSESSMENT: 1. Acute kidney injury, mostly acute tubular necrosis, status post 2 treatments of hemodialysis. However, renal function has not improved significantly. Therefore, we will resume hemodialysis for now and continue monitoring as outpatient for recovery of renal function. 2. Chronic kidney disease, stage 3. Baseline creatinine around 1.7 to 1.9 secondary to nephrosclerosis. 3. Fluid overload, now improved. 4. Severe hyperkalemia on initial admission, now resolved. PLAN: Hemodialysis today and vascular surgery consult for placement of IJ PermCath. Discharge planning to arrange for outpatient dialysis. MMODL / REMYN: [id number] /
[2019-01-09 17:04] LABS: Glucose,Whole Blood 363 mg/dL (75-99)
[2019-01-09 20:43] LABS: Glucose,Whole Blood 485 mg/dL (75-99)
[2019-01-09] MEDS: DONEPEZIL 5 MG TAB PO SCH (21:01)
[2019-01-09] MEDS: ATORVASTATIN 40 MG TAB PO SCH (21:01)
[2019-01-09] MEDS: SERTRALINE 25 MG TAB PO SCH (21:01)
[2019-01-10] MEDS: IPRATROPIUM-ALBUTEROL 3 ML NEB INHALATION SCH ×6 (03:35→22:39)
[2019-01-10 07:06] LABS: Glucose,Whole Blood 331 mg/dL (75-99)
[2019-01-10] MEDS: ASPIRIN 81 MG PO SCH (07:06)
[2019-01-10] MEDS: FERROUS SULFATE 325 MG TAB PO SCH (07:29)
[2019-01-10] MEDS: FAMOTIDINE 20 MG TAB PO SCH (07:29)
[2019-01-10] MEDS: INSULIN ASPART (NovoLOG) 100 UNIT/ML VIAL SQ SCH ×4 (07:29→22:43)
[2019-01-10] MEDS: NICOTINE 21MG/24HR PATCH TRANSDERM SCH (07:29)
[2019-01-10] MEDS: MEMANTINE 10 MG TAB PO SCH (07:29)
[2019-01-10] MEDS: FUROSEMIDE 10 MG/ML 4 ML VIAL IV SCH (07:29)
[2019-01-10] MEDS: INSULIN DETEMIR (LEVEMIR) 100 UNIT/ML SYR SQ SCH ×2 (07:30→22:41)
[2019-01-10 11:26] LABS: Glucose,Whole Blood 221 mg/dL (75-99)
[2019-01-10] MEDS ORDERED: LIDOCAINE 1% INJ 10MG/ML (20 ML MDV) ONE ×2 (14:29→14:47)
[2019-01-10] MEDS ORDERED: SODIUM CHLORIDE 0.9% 250 ML IV ONE (14:30)
[2019-01-10] MEDS ORDERED: MIDAZOLAM PF (FBP) 2 MG/2 ML VIAL IV ONE (14:38)
[2019-01-10] MEDS ORDERED: LIDOCAINE 1% INJ 10MG/ML (20 ML MDV) SQ ONE ×2 (14:40→14:49)
--- NOTE | 2019-01-10 15:28 | P.PN ---
Subjective This is a pleasant 73 years old male with past medical history of heart failure, atrial fibrillation, status post pacemaker, COPD, CVA/TIA, diabetes mellitus, GERD, hyperlipidemia, hypertension, sleep apnea on CPAP/BiPAP, peripheral vascular disease. Patient feels weak and poor historian, information was taken with the help with the at bedside. As per patient was feeling weak for the last 2 weeks, which significantly got worse over the last 2-3 days, associated with low blood pressure about 52/30s 2 weeks ago when the called her PCP and recommended hydration, as per had blood pressure for the last 2 days was improved up to 109/60s, also patient was complaining of from loose bowel movement for the last 2 to 3 days at least one loose bowel movement per day , associated with vomiting for 1 week. However patient denies abdominal pain. Patient was also having poor appetite and decreased oral intake. For the last 2-3 days patient needed help to walk and get up. She called his PCP and went to see him Dr. Zarco/his nurse practitioner Katiana, and his blood work came back with worsening creatinine and high potassium, he got the call today to come to the emergency room by his PCP office Patient also is heavy smoker about 1 pack per day, occasional alcohol but no illicit drugs. He has been having some dyspnea with chronic cough and recent worsening, and sure about making any phlegm but as per he was not. Patient denies chest pain As per patient was on sotalol and coreg both at home, also he was on a rmodafinil for sleep problem but he was not taking it over the last few weeks. On admission vitals stable, labs showing worsening creatinine from 1.6-2.4, up to 6.8. Potassium is elevated at 7.7, ever enzymes not elevated. Hemoglobin is stable at 11, rest of CBC is unremarkable. 12/31/2018 Patient is awake and alert with no chest pain or dyspnea. No coughing. He still feels generally weak. Not complaining of from pain. No urinary complaints, his blood pressure is 90/34, heart rate is 66. his sotalol was stopped. His potassium this morning is 7.2 and 6.5, creatinine is persistently elevated at 6.4 and 6.5. Sugar is on the high side, we going to increase his Levemir to 15 units twice a day. Patient has normal renal ultrasound. Urine culture are still pending. Nephrology and pulmonary team input is appreciated. Patient to continue on bicarbonate drip. Nephrology team are considering renal replacement therapy and hemodialysis. Eliquis was stopped upon recommendation of explosive ordnance disposal specialist for patient might need a renal catheter. And instead we will put the patient on subcu heparin. Medial drain is added for blood pressure support 01/01/2019 Patient remains in the ICU with no new complaints. He is not in distress. No chest pain or dyspnea. He still generally weak. Vital signs stable. Creatinine is 6.0 today, patient remains on heparin drip as his Eliquis was held for possible need for hemodialysis. Change bicarb drip to normal saline as per explosive ordnance disposal specialist recommendation. No need for renal replacement therapy today as per explosive ordnance disposal specialist. We'll keep monitoring 01/02/2019 Patient remains in the ICU, patient clinically the same with no dyspnea or chest pain. Patient is hemodynamically stable with blood pressure 155/73 cartridges low 60s. Coreg and sotalol remain on hold. His creatinine slightly came down today from 6.0 to 5.6. Potassium 4.2. Sugar is controlled today 108-177, patient remains on Levemir 15 units twice a day, liver enzymes were not baldomero vated. Final urine culture showing no growth. On admission his Xarelto was stopped and patient was placed on heparin drip, For his history of atrial fibrillation, Patient is followed closely by pulmonary and nephrology teams. 01/03/2019 Patient a week with no new complaint, he is generally weak with some tachypnea. No cough and no chest pain. Patient got hemodialysis yesterday and 2 L were t aken out, and this morning he is under going to same with hemodialysis and 2 L of fluids are removed. Speech and swallow evaluation has been consulted. Vitals are stable. Labs looked stable with creatinine 4.8, hemoglobin stable while on heparin drip., Sugar is controlled. This morning is still elevated. Patient was also placed on Lasix 80 mg twice daily. Is currently on Levemir 12 units twice a day and sliding scale. His blood pressure 118/69 while off sotalol and Coreg which are held on admission 01/04/2019 Patient remains in the ICU, has a breathing is quiet with no dyspnea. He denies cough is well. He is saturating 96% on 4 L oxygen. No showing slightly low hemoglobin at 8.5. Creatinine is slightly lower today at 4.35. Sugar is slightly elevated on 121-367. Chest x-ray showing no infiltrates . And improved edema. 01/05/2019 Patient in the ICU, he looks improved and more comfortable than before. He denies dyspnea or chest pain. He is saturating 100% on 2 L oxygen per minute via nasal cannula. He is still tachypneic with respiratory rate around 22 .No other abdominal or urinary complaints. He hemodynamically he is a stable. Creatinine is stable at 4.5 today. Electrolytes are within normal limits. Urinalysis is negative. Chest x-ray: Mild interstitial edema. He remains on Eliquis and Lasix 80 mg twice daily. His glucose is slightly elevated 169-303 and he is currently getting Levemir 15 units twice a day, which we are going to increase it to 18 units twice daily 01/09/2019 Patient lying in bed comfortable with no chest pain or dyspnea. He remains on hemodialysis with stable creatinine, patient is hemodynamically stable. Labs reviewed and stable. Patient landed to get permacath placement for ongoing hemodialysis while nephrology following the case closely. Eliquis is on hold temporarily for catheter placement 01/10/2019 Patient is clinically stable, hemodynamically stable. Patient is going for permacath placement for hemodialysis. After that we'll keep monitoring him for 24 hours Possible discharge in 24-48 hours Objective - Vital Signs Vital signs: Vital Signs Temp 98.2 F 01/10/19 12:19 Pulse 65 01/10/19 12:33 Resp 15 01/10/19 12:19 BP 112/57 01/10/19 12:19 Pulse Ox 98 01/10/19 12:19 Intake & Output 01/09/19 01/10/19 01/10/19 18:59 06:59 18:59 Intake Total 1480 25 Output Total 1941 420 500 Balance -461 420 -129 Weight 86.3 kg 86.3 kg Intake: IV 25 Oral 1080 Hemodialysis 400 Output: Urine 650 420 500 Hemodialysis 1291 Other: Voiding Method Indwelling Catheter Indwelling Catheter Indwelling Catheter # Voids 2 # Bowel Movements 1 - Exam -GENERAL: The patient is alert and oriented x2-[address] and time, oriented to person, not in any acute distress. Well developed, well nourished. HEENT: Pupils are round and equally reacting to light. EOMI. No scleral icterus. No conjunctival pallor. Normocephalic, atraumatic. No pharyngeal erythema. No thyromegaly. CARDIOVASCULAR: S1 and S2 present. No murmurs, rubs, or gallops. PULMONARY: Chest is clear to auscultation, no wheezing ABDOMEN: Soft, nontender, nondistended, normoactive bowel sounds. No palpable organomegaly. Abdominal hernia MUSCULOSKELETAL: No joint swelling or deformity. EXTREMITIES: No cyanosis, clubbing, or pedal edema. NEUROLOGICAL: Gross neurological examination did not reveal any focal deficits. SKIN: No rashes. No petechiae - Labs CBC & Chem 7: 01/09/19 07:02 01/09/19 07:02 Labs: Abnormal Lab Results - Last 24 Hours (Table) 01/09/19 01/09/19 01/10/19 Range/Units 17:00 20:42 07:05 POC Glucose (mg/dL) 363 H 485 H 331 H (75-99) mg/dL 01/10/19 Range/Units 11:24 POC Glucose (mg/dL) 221 H (75-99) mg/dL Assessment and Plan Assessment: Acute renal failure, needing hemodialysis Acute on chronic systolic heart failure with ejection fracture 30-35% with pos sible diastolic component Hyperkalemia, resolved Metabolic encephalopathy, secondary to above. Resolved Chronic kidney disease, mostly diabetic nephropathy. Stage III Mild Acute COPD exacerbation. Resolved History of atrial fibrillation on anticoagulation Chronic congestive heart failure Status post pacemaker COPD, not acute exacerbation History of CVA/TIA Diabetes mellitus Guarded Hyperlipidemia Hypertension Chronic sleep apnea on CPAP/BiPAP Peripheral vascular disease Plan: This is a pleasant 73 years old male who presents with hyperkalemia and acute kidney injury. Continue with Eliquis after permacath placement. His respiratory distress is significantly improved, planned for permacath placement, Follow-up potassium level and creatinine level. Follow-up recommendation from pulmonary and nephrology. Continue with hemodialysis as per nephrology rec ommendations Adjust medication for renal dose, stop sotalol, lower Levemir from 22 units to 15 units twice a day and insulin sliding scale hold Xarelto and metformin, Lasix. Labs and medication were reviewed.. Continue same treatment. Continue with symptomatic treatment. Resume home medication. Monitor lytes and vitals. DVT and GI prophylaxis. Further recommendations of the clinical course of the patient DVT prophylaxis: Eliquis GI Prophylaxis: Pepcid Prognosis is guarded
--- NOTE | 2019-01-10 16:05 | XR ---
EXAMINATION TYPE: XR chest 1V confirm line [facility] DATE OF EXAM: 01/10/2019 COMPARISON: 01/07/2019 HISTORY: Confirm Port-A-Cath placement. TECHNIQUE: Single frontal view of the chest is obtained. FINDINGS: Dual-lead hemodialysis catheter is present terminating in the distal superior vena cava. N o postprocedural pneumothorax is seen. Mild interstitial pulmonary edema is noted with right minor fi ssural fluid that is new. Multilead left-sided cardiac device and upper limits normal size of the car diomediastinal silhouette. No sizable pleural effusion. Diffuse osseous demineralization. IMPRESSION: Newly placed hemodialysis catheter terminating in the distal right superior vena cava wi th new mild interstitial pulmonary edema.
[2019-01-10] MEDS ORDERED: FUROSEMIDE 10 MG/ML 4 ML VIAL IV STA (16:58)
[2019-01-10 17:15] LABS: Glucose,Whole Blood 72 mg/dL (75-99)
[2019-01-10 18:17] LABS: Glucose,Whole Blood 115 mg/dL (75-99)
--- NOTE | 2019-01-10 19:36 | PN ---
PROGRESS NOTE Patient is seen for followup for chronic kidney disease and acute kidney injury. He is scheduled to have his PermCath placed today, following which patient will have his dialysis tomorrow, and then he can be discharged. He is set up at a TTS schedule at the [facility]. On examination this morning, patient is comfortable. Blood pressure was 153/72, heart rate 71 per minute. Patient is afebrile. EXAMINATION OF THE HEART: S1 and S2. EXAMINATION OF LUNGS: Bilateral breath sounds are heard. ABDOMEN: Soft, non-tender. Examination of lower extremities shows no significant edema. Labs are not available from today. ASSESSMENT: 1. Acute kidney injury, mostly acute tubular necrosis, with fairly benign urinalysis. No evidence of obstructive uropathy. Renal function remains fairly impaired and patient will need to continue with dialysis as outpatient. We will continue to monitor for recovery of renal function. 2. Chronic kidney disease, stage IIIB. Baseline creatinine 1.7 to 1.9 secondary to nephrosclerosis. 3. Fluid overload. 4. Severe hyperkalemia, now resolved. PLAN: Hemodialysis in a.m. after the new catheter is placed. Patient can be discharged tomorrow after dialysis. Follow up as outpatient and monitor renal recovery as outpatient. MMODL / IJN: [id number] /
[2019-01-10 21:28] LABS: Glucose,Whole Blood 182 mg/dL (75-99)
[2019-01-10] MEDS: DONEPEZIL 5 MG TAB PO SCH (22:35)
--- NOTE | 2019-01-10 22:35 | OP ---
OPERATIVE REPORT PREOPERATIVE DIAGNOSIS: Acute failure. PROCEDURES: 1. Ultrasound-guided placement of dialysis catheter, right internal jugular approach. 2. Removal of the dialysis catheter, right femoral approach. SEDATION TIME: Sedation time is 32 minutes. PROCEDURE DESCRIPTION: Patient was brought to the laboratory assistant. Right side of the neck and chest was prepped and draped sterile manner. Lidocaine 1% was infiltrated in the neck and chest area. Ultrasound-guided micropuncture into the right jugular vein. Micropuncture guidewire was passed. This patient had pacemaker wires on the left side. Micropuncture guidewire was passed and 4-Swiss dilator advanced on top of the guidewire. Then under fluoroscopic control we placed a catheter which was parked in the inferior vena cava. After that, incision was made in the chest wall and a tunnel was created. Through the tunnel we brought a 19 cm dialysis catheter. Dilator was advanced on top of the guidewire under fluoroscopic control and sheath was advanced on the top of the guidewire under fluoroscopic control and dialysis catheters were placed at junction of superior vena cava and atrium. Sheath was removed, pressure held. Incision was closed with Vicryl and nylon, dressing applied. Then attention was paid to the right groin. Right groin was prepped and stitches were removed and dialysis catheter was removed. The patient tolerated the procedure well. Sedation time was 32 minutes. KARLA / IMMANUEL: [id number] /
[2019-01-10] MEDS: ATORVASTATIN 40 MG TAB PO SCH (22:41)
[2019-01-10 22:43] LABS: Glucose,Whole Blood 160 mg/dL (75-99)
[2019-01-10] MEDS: SERTRALINE 25 MG TAB PO SCH (22:45)
[2019-01-11] MEDS: IPRATROPIUM-ALBUTEROL 3 ML NEB INHALATION SCH ×6 (04:57→23:17)
[2019-01-11] MEDS: INSULIN ASPART (NovoLOG) 100 UNIT/ML VIAL SQ SCH ×6 (07:07→21:58)
[2019-01-11 07:11] LABS: Glucose,Whole Blood 49 mg/dL (75-99)
[2019-01-11] MEDS: NICOTINE 21MG/24HR PATCH TRANSDERM SCH (07:11)
[2019-01-11] MEDS: APIXABAN 2.5 MG TABLET PO SCH ×2 (07:11→21:57)
[2019-01-11] MEDS: FERROUS SULFATE 325 MG TAB PO SCH (07:11)
[2019-01-11] MEDS: FAMOTIDINE 20 MG TAB PO SCH (07:12)
[2019-01-11] MEDS: FUROSEMIDE 10 MG/ML 4 ML VIAL IV SCH (07:12)
[2019-01-11] MEDS: ASPIRIN 81 MG PO SCH (07:12)
[2019-01-11] MEDS: MEMANTINE 10 MG TAB PO SCH (07:12)
[2019-01-11] MEDS: INSULIN DETEMIR (LEVEMIR) 100 UNIT/ML SYR SQ SCH (07:26)
[2019-01-11 07:38] LABS: Glucose,Whole Blood 53 mg/dL (75-99)
[2019-01-11 07:41] LABS: Glucose,Whole Blood 70 mg/dL (75-99)
--- NOTE | 2019-01-11 08:18 | IR ---
EXAMINATION TYPE: IR cvc insert central tunneled DATE OF EXAM: 01/10/2019 COMPARISON: NONE HISTORY: Fluoroscopy time. Fluoroscopy was provided to the referring clinician.
[2019-01-11] MEDS ORDERED: RIVAROXABAN 20 MG TAB PO SCH (09:00)
[2019-01-11 12:26] LABS: Glucose,Whole Blood 279 mg/dL (75-99)
--- NOTE | 2019-01-11 14:55 | P.PN ---
Subjective This is a pleasant 73 years old male with past medical history of heart failure, atrial fibrillation, status post pacemaker, COPD, CVA/TIA, diabetes mellitus, GERD, hyperlipidemia, hypertension, sleep apnea on CPAP/BiPAP, peripheral vascular disease. Patient feels weak and poor historian, information was taken with the help with the at bedside. As per patient was feeling weak for the last 2 weeks, which significantly got worse over the last 2-3 days, associated with low blood pressure about 52/30s 2 weeks ago when the called her PCP and recommended hydration, as per had blood pressure for the last 2 days was improved up to 109/60s, also patient was complaining of from loose bowel movement for the last 2 to 3 days at least one loose bowel movement per day , associated with vomiting for 1 week. However patient denies abdominal pain. Patient was also having poor appetite and decreased oral intake. For the last 2-3 days patient needed help to walk and get up. She called his PCP and went to see him Dr. Zarco/his nurse practitioner Katiana, and his blood work came back with worsening creatinine and high potassium, he got the call today to come to the emergency room by his PCP office Patient also is heavy smoker about 1 pack per day, occasional alcohol but no illicit drugs. He has been having some dyspnea with chronic cough and recent worsening, and sure about making any phlegm but as per he was not. Patient denies chest pain As per patient was on sotalol and coreg both at home, also he was on a rmodafinil for sleep problem but he was not taking it over the last few weeks. On admission vitals stable, labs showing worsening creatinine from 1.6-2.4, up to 6.8. Potassium is elevated at 7.7, ever enzymes not elevated. Hemoglobin is stable at 11, rest of CBC is unremarkable. 12/31/2018 Patient is awake and alert with no chest pain or dyspnea. No coughing. He still feels generally weak. Not complaining of from pain. No urinary complaints, his blood pressure is 90/34, heart rate is 66. his sotalol was stopped. His potassium this morning is 7.2 and 6.5, creatinine is persistently elevated at 6.4 and 6.5. Sugar is on the high side, we going to increase his Levemir to 15 units twice a day. Patient has normal renal ultrasound. Urine culture are still pending. Nephrology and pulmonary team input is appreciated. Patient to continue on bicarbonate drip. Nephrology team are considering renal replacement therapy and hemodialysis. Eliquis was stopped upon recommendation of licensed clinical psychologist for patient might need a renal catheter. And instead we will put the patient on subcu heparin. Medial drain is added for blood pressure support 01/01/2019 Patient remains in the ICU with no new complaints. He is not in distress. No chest pain or dyspnea. He still generally weak. Vital signs stable. Creatinine is 6.0 today, patient remains on heparin drip as his Eliquis was held for possible need for hemodialysis. Change bicarb drip to normal saline as per licensed clinical psychologist recommendation. No need for renal replacement therapy today as per licensed clinical psychologist. We'll keep monitoring 01/02/2019 Patient remains in the ICU, patient clinically the same with no dyspnea or chest pain. Patient is hemodynamically stable with blood pressure 155/73 cartridges low 60s. Coreg and sotalol remain on hold. His creatinine slightly came down today from 6.0 to 5.6. Potassium 4.2. Sugar is controlled today 108-177, patient remains on Levemir 15 units twice a day, liver enzymes were not baldomero vated. Final urine culture showing no growth. On admission his Xarelto was stopped and patient was placed on heparin drip, For his history of atrial fibrillation, Patient is followed closely by pulmonary and nephrology teams. 01/03/2019 Patient a week with no new complaint, he is generally weak with some tachypnea. No cough and no chest pain. Patient got hemodialysis yesterday and 2 L were t aken out, and this morning he is under going to same with hemodialysis and 2 L of fluids are removed. Speech and swallow evaluation has been consulted. Vitals are stable. Labs looked stable with creatinine 4.8, hemoglobin stable while on heparin drip., Sugar is controlled. This morning is still elevated. Patient was also placed on Lasix 80 mg twice daily. Is currently on Levemir 12 units twice a day and sliding scale. His blood pressure 118/69 while off sotalol and Coreg which are held on admission 01/04/2019 Patient remains in the ICU, has a breathing is quiet with no dyspnea. He denies cough is well. He is saturating 96% on 4 L oxygen. No showing slightly low hemoglobin at 8.5. Creatinine is slightly lower today at 4.35. Sugar is slightly elevated on 121-367. Chest x-ray showing no infiltrates . And improved edema. 01/05/2019 Patient in the ICU, he looks improved and more comfortable than before. He denies dyspnea or chest pain. He is saturating 100% on 2 L oxygen per minute via nasal cannula. He is still tachypneic with respiratory rate around 22 .No other abdominal or urinary complaints. He hemodynamically he is a stable. Creatinine is stable at 4.5 today. Electrolytes are within normal limits. Urinalysis is negative. Chest x-ray: Mild interstitial edema. He remains on Eliquis and Lasix 80 mg twice daily. His glucose is slightly elevated 169-303 and he is currently getting Levemir 15 units twice a day, which we are going to increase it to 18 units twice daily 01/09/2019 Patient lying in bed comfortable with no chest pain or dyspnea. He remains on hemodialysis with stable creatinine, patient is hemodynamically stable. Labs reviewed and stable. Patient landed to get permacath placement for ongoing hemodialysis while nephrology following the case closely. Eliquis is on hold temporarily for catheter placement 01/10/2019 Patient is clinically stable, hemodynamically stable. Patient is going for permacath placement for hemodialysis. After that we'll keep monitoring him for 24 hours Possible discharge in 24-48 hours 01/11/2019 Patient clinically stable, however his sugar dropped this morning, patient laina etimes eats and sometimes notes which wasn't fluctuation is his sugar admitted difficult to control it, we going to stop his Levemir 18 units twice a day and start him on Levemir 8 units at bedtime with 6 units with meals plus a sliding scale. Patient has Fernández catheter and he has some incontinence in his stool, besides his generalized weakness so discussed with patient and family to consider rehab which eventually they agree. Currently patient is medically for discharge pending placement which possibly going to happen tomorrow Objective - Vital Signs Vital signs: Vital Signs Temp 97.6 F 01/11/19 13:23 Pulse 60 01/11/19 13:23 Resp 16 01/11/19 13:23 BP 149/65 01/11/19 13:23 Pulse Ox 96 01/11/19 13:23 Intake & Output 01/10/19 01/11/19 01/11/19 18:59 06:59 18:59 Intake Total 145 140 540 Output Total 500 1125 Balance -355 985 540 Weight 86.3 kg Intake: IV 25 Oral 120 140 540 Output: Urine 500 1125 Straight 300 Other: Voiding Method Indwelling Catheter Indwelling Catheter Indwelling Catheter # Voids 0 # Bowel Movements 0 1 - Exam -GENERAL: The patient is alert and oriented x2-[address] and time, oriented to person, not in any acute distress. Well developed, well nourished. HEENT: Pupils are round and equally reacting to light. EOMI. No scleral icterus. No conjunctival pallor. Normocephalic, atraumatic. No pharyngeal erythema. No thyromegaly. CARDIOVASCULAR: S1 and S2 present. No murmurs, rubs, or gallops. PULMONARY: Chest is clear to auscultation, no wheezing ABDOMEN: Soft, nontender, nondistended, normoactive bowel sounds. No palpable organomegaly. Abdominal hernia MUSCULOSKELETAL: No joint swelling or deformity. EXTREMITIES: No cyanosis, clubbing, or pedal edema. NEUROLOGICAL: Gross neurological examination did not reveal any focal deficits. SKIN: No rashes. No petechiae - Labs CBC & Chem 7: 01/09/19 07:02 01/09/19 07:02 Labs: Abnormal Lab Results - Last 24 Hours (Table) 01/10/19 01/10/19 01/10/19 Range/Units 17:11 18:15 21:24 POC Glucose (mg/dL) 72 L 115 H 182 H (75-99) mg/dL 01/10/19 01/11/19 01/11/19 Range/Units 22:40 07:05 07:24 POC Glucose (mg/dL) 160 H 49 L 53 L (75-99) mg/dL 01/11/19 01/11/19 Range/Units 07:39 12:23 POC Glucose (mg/dL) 70 L 279 H (75-99) mg/dL Assessment and Plan Assessment: Acute renal failure, needing hemodialysis Acute on chronic systolic heart failure with ejection fracture 30-35% with possible diastolic component Hyperkalemia, resolved Metabolic encephalopathy, secondary to above. Resolved Chronic kidney disease, mostly diabetic nephropathy. Stage III Mild Acute COPD exacerbation. Resolved History of atrial fibrillation on anticoagulation Chronic congestive heart failure Status post pacemaker COPD, not acute exacerbation History of CVA/TIA Diabetes mellitus Guarded Hyperlipidemia Hypertension Chronic sleep apnea on CPAP/BiPAP Peripheral vascular disease Plan: This is a pleasant 73 years old male who presents with hyperkalemia and acute kidney injury. Continue with Eliquis after permacath placement. His respiratory distress is significantly improved, planned for permacath placement, Follow-up potassium level and creatinine level. Follow-up recommendation from pulmonary and nephrology. Continue with hemodialysis as per nephrology recommendations Adjust medication for renal dose, stop sotalol, lower Levemir from 22 units to 15 units twice a day and insulin sliding scale hold Xarelto and metformin, Lasix. Labs and medication were reviewed.. Continue same treatment. Continue with symptomatic treatment. Resume home medication. Monitor lytes and vitals. DVT and GI prophylaxis. Further recommendations of the clinical course of the patient DVT prophylaxis: Eliquis GI Prophylaxis: Pepcid Prognosis is guarded
[2019-01-11 15:34] LABS: Glucose,Whole Blood 204 mg/dL (75-99)
[2019-01-11] MEDS: DARBEPOETIN ALFA 40 MCG/0.4 ML SYRINGE SQ SCH (16:23)
[2019-01-11 17:07] LABS: Glucose,Whole Blood 305 mg/dL (75-99)
--- NOTE | 2019-01-11 19:33 | PN ---
PROGRESS NOTE Patient is seen for followup for renal failure, acute on top of chronic. The patient is scheduled for hemodialysis today following which he could be discharged. He is set up for starting dialysis as outpatient from tomorrow on a Wednesday, , Wednesday schedule. It appears that family is considering inpatient rehab. PHYSICAL EXAMINATION: This morning, patient is comfortable. He is awake, not in any acute distress. Blood pressure was 131/61, heart rate of 69 per minute. He is afebrile. Examination of the heart S1, S2. Examination of the lungs, bilateral breath sounds are heard. ABDOMEN: Soft, nontender. Examination of lower extremities shows no evidence of edema. CRIPPLE CHASER exam grossly intact. LABS SHOW: Sodium 140, potassium 3.8. BUN 108, creatinine of 5.28 on January 09. ASSESSMENT: 1. Acute kidney injury, currently dialysis dependent. The patient is back on dialysis. He will continue with outpatient dialysis. We will continue to monitor for recovery of renal function as outpatient. Repeat labs tomorrow morning before dialysis. 2. Chronic kidney disease, NKF stage 3, secondary to nephrosclerosis. 3. Congestive heart failure, on initial admission, currently improved. 4. Severe hyperkalemia on initial admission, now resolved. 5. Anemia, maintained on Aranesp. PLAN: Switch Lasix to p.o. Hemodialysis today. Followup as outpatient on dialysis and monitor for recovery of renal function. MMODL / IJN: [id number] /
[2019-01-11 20:12] LABS: Glucose,Whole Blood 448 mg/dL (75-99)
[2019-01-11] MEDS ORDERED: INSULIN DETEMIR (LEVEMIR) 100 UNIT/ML SYR SQ SCH ×3 (21:00)
[2019-01-11] MEDS: ATORVASTATIN 40 MG TAB PO SCH (21:57)
[2019-01-11] MEDS: DONEPEZIL 5 MG TAB PO SCH (21:57)
[2019-01-11] MEDS: SERTRALINE 25 MG TAB PO SCH (21:57)
[2019-01-12] MEDS: IPRATROPIUM-ALBUTEROL 3 ML NEB INHALATION SCH ×4 (03:42→16:23)
[2019-01-12 06:34] LABS: Glucose,Whole Blood 175 mg/dL (75-99)
[2019-01-12 07:12] LABS: Glucose,Whole Blood 188 mg/dL (75-99)
[2019-01-12] MEDS: INSULIN ASPART (NovoLOG) 100 UNIT/ML VIAL SQ SCH ×4 (07:51→12:57)
[2019-01-12] MEDS: APIXABAN 2.5 MG TABLET PO SCH (07:52)
[2019-01-12] MEDS: MEMANTINE 10 MG TAB PO SCH (07:52)
[2019-01-12] MEDS: FERROUS SULFATE 325 MG TAB PO SCH (07:52)
[2019-01-12] MEDS: ASPIRIN 81 MG PO SCH (07:52)
[2019-01-12] MEDS: NICOTINE 21MG/24HR PATCH TRANSDERM SCH (07:52)
[2019-01-12] MEDS: FAMOTIDINE 20 MG TAB PO SCH (07:52)
[2019-01-12 09:10] LABS: Calcium 8.8 mg/dL (8.4-10.2); Potassium 4.4 mmol/L (3.5-5.1)
--- NOTE | 2019-01-12 11:07 | P.DS ---
Providers Date of admission: 12/30/18 12:56 Attending physician: Edgar Phillips MD Consults: 12/30/18 12:02 Consult Physician Stat Consulting Provider: Minerva Burton Consult Reason/Comments: acute kidney failure with hyperkalemia, needs dialysis Do you want consulting provider notified?: Yes 12/30/18 13:35 Consult Physician Urgent Consulting Provider: Minerva Burton Consult Reason/Comments: copd and hyperkalemia Do you want consulting provider notified?: Yes 12/30/18 18:30 Consult Physician Routine Consulting Provider: Marlene Garrido Consult Reason/Comments: hyperkalemia Do you want consulting provider notified?: Yes, Notify in am 01/02/19 10:57 Consult Physician Routine Consulting Provider: Charlie Ba Consult Reason/Comments: Dialysis cath Do you want consulting provider notified?: Yes Primary care physician: Aria Haroldo [facility] Course: Diagnoses: Acute renal failure, needing hemodialysis Acute on chronic systolic heart failure with ejection fracture 30-35% with pos sible diastolic component Hyperkalemia, resolved Metabolic encephalopathy, secondary to above. Resolved Chronic kidney disease, mostly diabetic nephropathy. Stage III prior to admission Urinary retention Mild Acute COPD exacerbation. Resolved History of atrial fibrillation on anticoagulation Chronic congestive heart failure Status post pacemaker COPD, not acute exacerbation History of CVA/TIA Diabetes mellitus Guarded Hyperlipidemia Hypertension Chronic sleep apnea on CPAP/BiPAP Peripheral vascular disease Hospital course: This is a pleasant 73 years old male with past medical history of heart failure, atrial fibrillation, status post pacemaker, COPD, CVA/TIA, diabetes mellitus, GERD, hyperlipidemia, hypertension, sleep apnea on CPAP/BiPAP, peripheral vascular disease. patient was feeling weak for the last 2 weeks, which significantly got worse over the last 2-3 days prior to admission, associated with low blood pressure about 52/30s 2 weeks ago when the called her PCP and recommended hydration, as per had blood pressure for the last 2 days was improved up to 109/60s, also patient was complaining of from loose bowel movement for the last 2 to 3 days at least one loose bowel movement per day , associated with vomiting for 1 week. However patient denies abdominal pain. Patient was also having poor appetite and decreased oral intake. Because of this patient presents with clinical picture of dehydration/hypovolemia with acute renal failure, potassium was high up on admission and he was admitted to the ICU in view of his medication has been change, black stopping entresto, Coreg, sotalol. And change his Xarelto to Eliquis Since then patient is needing hemodialysis. He had some pulmonary congestion however he was not in respiratory distress and his breathing improved with ongoing dialysis. His urine analysis was benign and his creatinine did not improve on its own even after stopping nephrotoxic medication and eventually patient was recommended to continue with renal replacement therapy as an outpatient and permacath was placed prior to discharge. Fernández catheter was placed for urinary retention, patient was recommended and instructed to follow up with urologist as an outpatient On the day of discharge he denies chest pain or dyspnea. No abdominal pain. No nausea vomiting, he tolerates diet well. No change in bowel habits. No fever Patient was cleared for discharge by nephrology team Because of glucose level fluctuation, His insulin was switched from Levemir 22 units twice a day to Levemir 15 units at bedtime with 6 units with meals plus sliding scale Problems and management plan were discussed with the patient and he verbalized understanding and acceptance Patient was found stable and can be discharged home however he needs follow-up as an outpatient. Patient was instructed to follow up with PCP within one week and patient agrees.follow up with your hemidialysis as instructed as well Gen: patient is a AAOx3, no distress CVS: S1-S2, RRR, no murmur Lungs: B/L CTA, no wheezing. Permacath is in Place Abdomen: soft, no distention, no tenderness, positive bowel sounds Extremity: no leg edema or induration Time spent more than 35 minutes Patient Condition at Discharge: Serious Plan - Discharge Summary Discharge Rx Participant: Yes New Discharge Prescriptions: New Apixaban [Eliquis] 2.5 mg PO BID #60 tablet Nicotine 21Mg/24Hr Patch [Habitrol] 1 patch TRANSDERM DAILY #30 patch Albuterol Inhaler [Ventolin Hfa Inhaler] 1 - 2 puff INHALATION RT-Q6H PRN #1 inhaler PRN Reason: Shortness Of Breath Or Wheezing Insulin Detemir (Levemir) [Levemir] 15 unit SQ HS syr INSULIN ASPART (NovoLOG) [NovoLOG (formulary)] 6 unit SQ AC-TID vial Continue Ferrous Sulfate [Iron (65 MG Elemental)] 325 mg PO DAILY Aspirin 81 mg PO DAILY Atorvastatin [Lipitor] 40 mg PO HS Famotidine [Pepcid] 20 mg PO DAILY INSULIN ASPART (NovoLOG) [NovoLOG (formulary)] See Protocol SQ ACHS Donepezil [Aricept] 5 mg PO HS #30 tab Sertraline [Zoloft] 25 mg PO HS #30 tab Furosemide [Lasix] 40 mg PO DAILY Memantine [Namenda] 10 mg PO DAILY Cholecalciferol [Vitamin D3 (25 Mcg = 1000 Iu)] 1,000 unit PO DAILY Discontinued Rivaroxaban [Xarelto] 20 mg PO DAILY Carvedilol [Coreg] 6.25 mg PO AC-BID Insulin Detemir (Levemir) [Levemir] 22 unit SQ BID metFORMIN HCL 1,000 mg PO DAILY Sotalol [Betapace] 80 mg PO BID Armodafinil [Nuvigil] 150 mg PO DAILY Sacubitril/Valsartan [Entresto 49 mg-51 mg Tablet] 1 tab PO BID Discharge Medication List Aspirin 81 mg PO DAILY 01/11/15 [History] Atorvastatin [Lipitor] 40 mg PO HS 01/11/15 [History] Ferrous Sulfate [Iron (65 MG Elemental)] 325 mg PO DAILY 01/11/15 [History] Famotidine [Pepcid] 20 mg PO DAILY 01/16/18 [History] INSULIN ASPART (NovoLOG) [NovoLOG (formulary)] See Protocol SQ ACHS 01/16/18 [History] Donepezil [Aricept] 5 mg PO HS #30 tab 02/03/18 [Rx] Sertraline [Zoloft] 25 mg PO HS #30 tab 02/03/18 [Rx] Furosemide [Lasix] 40 mg PO DAILY 11/07/18 [History] Memantine [Namenda] 10 mg PO DAILY 11/07/18 [History] Cholecalciferol [Vitamin D3 (25 Mcg = 1000 Iu)] 1,000 unit PO DAILY 12/30/18 [History] Albuterol Inhaler [Ventolin Hfa Inhaler] 1 - 2 puff INHALATION RT-Q6H PRN #1 inhaler 01/11/19 [Rx] Apixaban [Eliquis] 2.5 mg PO BID #60 tablet 01/11/19 [Rx] Nicotine 21Mg/24Hr Patch [Habitrol] 1 patch TRANSDERM DAILY #30 patch 01/11/19 [Rx] INSULIN ASPART (NovoLOG) [NovoLOG (formulary)] 6 unit SQ AC-TID vial 01/12/19 [Rx] Insulin Detemir (Levemir) [Levemir] 15 unit SQ HS syr 01/12/19 [Rx] Follow up Appointment(s)/Referral(s): Marlene Garrido MD [STAFF PHYSICIAN] - 1 Week (office said they will see him at the dialysis center) [facility], [NON-STAFF] - 1-2 Days Aria Zarco DO [Primary Care Provider] - 01/16/19 11:00 am Jean Hilliard MD [STAFF PHYSICIAN] - 10 Days (office would not make appt, pt will have to call) Patient Instructions/Handouts: Chronic Kidney Disease (DC), Perma-cath Placemen t (DC), Hemodialysis (DC) Activity/Diet/Wound Care/Special Instructions: Diabetic and renal diet Activity is limited till you see your doctor We recommend to check your sugar/glucose 4 times daily before each meal and at bedtime, Keep results in a log book and bring it to your doctor on your appointment within 1 week Hemodialysis Wednesday//Wednesday at 5:45AM, on January 17 for your first treatment at [facility].
[2019-01-12 11:56] LABS: Glucose,Whole Blood 189 mg/dL (75-99)
--- NOTE | 2019-01-12 13:19 | CDI ---
Documentation Clarification Form Date: 01/12/2019 1:06:45 PM From: Cheryl JacquesParraDIONNE garcia, CCDS Admit Date: 12/30/2018 12:56:00 PM Patient Name: Samir Chan Visit Number: [id number] Discharge Date: ATTENTION: The Clinical Documentation Specialists (CDI) and [facility] Coding Staff appreciate your assistance in clarifying documentation. Please respond to the clarification below the line at the bottom and electronically sign. The CDI & [facility] Coding staff will review the response and follow-up if needed. Please note: Queries are made part of the Legal Health Record. If you have any questions, please contact the author of this message via ITS. Dr. Hernández Sheet: Acute renal failure with acute tubular necrosis is documented throughout the record. Per the discharge summary: acute renal failure is documented without ATN. History/Risk Factors: CHF, Atrial fibrillation, COPD, CVA/TIA, DM, GERD, Hyperlipidemia, Hypertension, Sleep apnea, PVD & has pacemaker. Heavy smoker. Clinical Indicators: Presented with weakness & low BP. Diagnosed with acute renal failure (subsequently diagnosed with acute renal failure w/ATN), acute COPD exacerbation, Hyperkalemia, Metabolic encephalopathy, CKD diabetic nephropathy stage III, Acute on Chronic systolic & diastolic CHF. LABS: BUN 134^^ - 58; Cr 6.81 - 3.91; GFR 7 - 14; glucose 123^. RAD: US renal & bladder: normal renal US Nephrology Consult: Nonoliguric ANTHONY secondary to ischemic ATN with low blood pressures. Treatment: IV Dextrose/Water, IV Insulin, IV NaBicarb, IV Zofran, IV fluid bolus, INH Albuterol, IV Solumedrol Please clarify if the diagnosis of acute renal failure: Acute renal failure Acute renal failure with ATN Acute renal failure without ATN Other, please specify: Unable to determine Please clarify if present on admission: Yes No (Last Query Form Revision: December 2018) Unable to determine MTDD
[2019-01-12 13:22] VITALS: BP 129/75; PULSE 69; RESP 18; TEMP 98.5
[2019-01-12] MEDS ORDERED: INSULIN DETEMIR (LEVEMIR) 100 UNIT/ML SYR SQ SCH ×2 (21:00)
== END 2019-01-12 15:05 | DRG 682 ==
LOC: EC 09:16 → 2SICU 12:56 → 4MS4W 01-06 10:13
PROVIDERS: ADMIT Internal Medicine; ATTEND Internal Medicine
PROC: 5A09457 Assistance with Respiratory Ventilation, 24-96 Consecutive Hours, Continuous Positive Airway Pressure (ICD-10-PCS; principal; 2018-12-30)
PROC: 5A1D70Z Performance of Urinary Filtration, Intermittent, Less than 6 Hours Per Day (ICD-10-PCS; 2019-01-02)
PROC: 05HC33Z Insertion of Infusion Device into Left Basilic Vein, Percutaneous Approach (ICD-10-PCS; 2019-01-02)
PROC: 06HM33Z Insertion of Infusion Device into Right Femoral Vein, Percutaneous Approach (ICD-10-PCS; 2019-01-02 12:15)
DX: N17.0 Acute kidney failure with tubular necrosis (principal); G93.41 Metabolic encephalopathy; J96.01 Acute respiratory failure with hypoxia; I50.43 Acute on chronic combined systolic (congestive) and diastolic (congestive) heart failure; E87.2 Acidosis; I13.0 Hypertensive heart and chronic kidney disease with heart failure and stage 1 through stage 4 chronic kidney disease, or unspecified chronic kidney disease; I42.9 Cardiomyopathy, unspecified; J44.1 Chronic obstructive pulmonary disease with (acute) exacerbation; E11.21 Type 2 diabetes mellitus with diabetic nephropathy; E11.22 Type 2 diabetes mellitus with diabetic chronic kidney disease; D63.8 Anemia in other chronic diseases classified elsewhere; E11.51 Type 2 diabetes mellitus with diabetic peripheral angiopathy without gangrene; E66.9 Obesity, unspecified; Z68.26 Body mass index [BMI] 26.0-26.9, adult; E78.5 Hyperlipidemia, unspecified; E86.0 Dehydration; E86.1 Hypovolemia; E87.5 Hyperkalemia; E87.8 Other disorders of electrolyte and fluid balance, not elsewhere classified; F03.90 Unspecified dementia, unspecified severity, without behavioral disturbance, psychotic disturbance, mood disturbance, and anxiety; F17.210 Nicotine dependence, cigarettes, uncomplicated; F32.9 Major depressive disorder, single episode, unspecified; F41.9 Anxiety disorder, unspecified; G47.33 Obstructive sleep apnea (adult) (pediatric); I25.10 Atherosclerotic heart disease of native coronary artery without angina pectoris; I48.2 Chronic atrial fibrillation; R33.9 Retention of urine, unspecified; K21.9 Gastro-esophageal reflux disease without esophagitis; N18.3 Chronic kidney disease, stage 3 (moderate); Z96.1 Presence of intraocular lens; Z79.4 Long term (current) use of insulin; I25.2 Old myocardial infarction; Z79.01 Long term (current) use of anticoagulants; Z79.82 Long term (current) use of aspirin; Z79.899 Other long term (current) drug therapy; Z87.440 Personal history of urinary (tract) infections; Z91.19 Patient's noncompliance with other medical treatment and regimen; Z95.0 Presence of cardiac pacemaker; Z98.42 Cataract extraction status, left eye; Z98.41 Cataract extraction status, right eye; I69.398 Other sequelae of cerebral infarction; Z89.021 Acquired absence of right finger(s); Z88.5 Allergy status to narcotic agent; Z99.2 Dependence on renal dialysis
CPT/HCPCS: 36410; 36415; 36558; 71045; 71046; 76770; 76937; 77001; 80048; 80053; 81003; 82550; 83735; 85025; 85027; 85610; 85730; 86704; 86706; 87086; 87340; 90935; 93005; 93306; 94640; 94660; 94760; 96361; 96374; 96375; 99285

== ENCOUNTER 2020-06-15 19:30 | Observation (INO) | payer MEDICARE ==
--- NOTE | 2020-06-15 20:47 | ED ---
Fall HPI - General Chief Complaint: Fall Stated Complaint: weakness Time Seen by Provider: 06/15/20 20:17 Source: patient, EMS Mode of arrival: EMS - History of Present Illness Initial Comments: Patient is a 75-year-old male, history of heart disease, mild dementia, kidney disease, stroke, presenting to the emergency department with concerns of multiple falls over the past 2 days as well as feeling achy. Patient's is here with him and is helping with history. states that he has physical therapy coming to the house and also visiting nurses that helps with his wea kness which is chronic in nature. He normally walks with a walker. states that yesterday patient had a fall as he missed the couch, landing mostly in his bottom. He did not hit his head as all, no loss of consciousness. Patient denied any complaints from the fall. Today he had 2 more episodes of collapsing down to his knees while he was trying to walk with his walker. He stated he is too weak to hold himself up. He did just have a second dose of Covid vaccine today. He is complaining of body aches. No fevers or chills, no abdominal pain, no nausea or vomiting. Of note, patient's states that he was recently treated for a UTI, finished Keflex 1 week ago. Patient has no further complaints at this time. Upon arrival to the ER, his vital signs are stable. - Related Data Home Medications Medication Instructions Recorded Confirmed Aspirin 81 mg PO DAILY 01/11/15 12/30/18 Atorvastatin [Lipitor] 40 mg PO HS 01/11/15 12/30/18 Ferrous Sulfate [Iron (65 MG 325 mg PO DAILY 01/11/15 12/30/18 Elemental)] Famotidine [Pepcid] 20 mg PO DAILY 01/16/18 12/30/18 INSULIN ASPART (NovoLOG) [NovoLOG See Protocol SQ ACHS 01/16/18 12/30/18 (formulary)] Furosemide [Lasix] 40 mg PO DAILY 11/07/18 12/30/18 Memantine [Namenda] 10 mg PO DAILY 11/07/18 12/30/18 Cholecalciferol [Vitamin D3 (25 1,000 unit PO DAILY 12/30/18 12/30/18 Mcg = 1000 Iu)] Previous Rx's Medication Instructions Recorded Donepezil [Aricept] 5 mg PO HS #30 tab 02/03/18 Sertraline [Zoloft] 25 mg PO HS #30 tab 02/03/18 Albuterol Inhaler (Mhu) [Ventolin 1 - 2 puff INHALATION RT-Q6H PRN 01/11/19 Hfa Inhaler (Mhu)] #1 inhaler Apixaban [Eliquis] 2.5 mg PO BID #60 tablet 01/11/19 Nicotine 21Mg/24Hr Patch [Habitrol] 1 patch TRANSDERM DAILY #30 patch 01/11/19 INSULIN ASPART (NovoLOG) [NovoLOG 6 unit SQ AC-TID vial 01/12/19 (formulary)] Insulin Detemir (Levemir) [Levemir] 15 unit SQ HS syr 01/12/19 Allergies Allergy/AdvReac Type Severity Reaction Status Date / Time codeine Allergy Unknown Verified 06/15/20 19:44 [From Tylenol-Codeine #3] Review of Systems ROS Statement: Those systems with pertinent positive or pertinent negative responses have been documented in the HPI. ROS Other: All systems not noted in ROS Statement are negative. Past Medical History Past Medical History: Atrial Fibrillation, Heart Failure, COPD, CVA/TIA, Dementia, Diabetes Mellitus, GERD/Reflux, Hyperlipidemia, Hypertension, Myocardial Infarction (DC), Renal Disease, Sleep Apnea/CPAP/BIPAP, Vascular Disorder Additional Past Medical History / Comment(s): IDDM type II, 2006 CVA-more sleepy since, seizures ruled out by [facility], DION-did not tolerate mask, chronic kidney disease stage III, peripheral vascular disease, previous history of UTI with E. 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 Mother Family Medical History: Cancer Additional Family Medical History / Comment(s): Pt/spouse do not recall type of cancer. Brother(s) Family Medical History: Cancer General Exam - General Exam Comments Initial Comments: GENERAL: Patient is well-developed and well-nourished. Patient is nontoxic and in no acute distress. HEAD: Atraumatic, normocephalic. There are no hematomas, no signs of basal skull fracture. EYES: Pupils equal round and reactive to light, extraocular movements intact, sclera anicteric, conjunctiva are normal. Eyelids were unremarkable. ENT: TMs normal, nares patent, oropharynx clear without exudates. Moist mucous membranes. NECK: Normal range of motion, supple without lymphadenopathy or JVD. No midline tenderness. LUNGS: Unlabored respirations. Breath sounds clear to auscultation bilaterally and equal. No wheezes rales or rhonchi. HEART: Regular rate and rhythm without murmurs, rubs or gallops. ABDOMEN: Soft, nontender, normoactive bowel sounds. No guarding, no rebound. No masses appreciated. : Deferred MUSCULOSKELETAL: Normal extremities with adequate strength and normal range of motion, no pitting or edema. No clubbing or cyanosis. He does have some mild tenderness of the tiki mbar region, hurts with trunk flexion. NEUROLOGICAL: Patient is alert and oriented x 3. Motor and sensory are also intact. Cranial nerves II through XII grossly intact. Symmetrical smile. Normal speech. PSYCH: Normal mood, normal affect. SKIN: Warm, Dry, normal turgor, no rashes or lesions noted. Limitations: no limitations Course Vital Signs 06/15/20 06/15/20 19:39 22:38 Temperature 98.9 F Pulse Rate 69 70 Respiratory 18 16 Rate Blood Pressure 127/73 137/60 O2 Sat by Pulse 99 96 Oximetry Medical Decision Making - Medical Decision Making Patient is a 75-year-old male with multiple comorbidities presenting for weakn ess, 3 falls in the last 2 days, also body aches from the second Covid vaccine today. Patient's vital signs are stable upon arrival. Patient's EKG read suspected pacemaker failure, some nonspecific T-wave abnormalities, no signs of acute ischemia. Lab work shows a normal white count, normal hemoglobin. Potassium is elevated at 5.7. Creatinine is elevated at 2.40 which seems to be his baseline. According to , patient used to be on dialysis but has been off of it for many years. Troponin came back elevated at 0.035. He does have history of elevated troponins as well. Urine shows evidence for infection, urine culture is pending. Brain CT, pelvis, chest and lumbar spine x-rays reve aled no acute process at this time. Given the patient's recent falls, weakness, elevated troponin as well as hyperkalemia and unresolved UTI, patient will be admitted. I will consult cardiology and nephrology. Patient was also given calcium gluconate and albuterol for hyperkalemia. I did give him a tablet of Cipro for the UTI as he just finished Keflex. We will [id number] troponins. Patient and patient's is agreement with admission. Patient accepted by Dr. Novak. Case discussed with Dr. Madrigal. - Lab Data Result diagrams: 06/15/20 21:41 06/15/20 21:41 Lab Results 06/15/20 06/15/20 06/15/20 Range/Units 21:41 21:41 21:41 WBC 8.3 (3.8-10.6) k/uL RBC 4.10 L (4.30-5.90) m/uL Hgb 12.8 L (13.0-17.5) gm/dL Hct 38.9 L (39.0-53.0) % MCV 95.0 (80.0-100.0) fL MCH 31.2 (25.0-35.0) pg MCHC 32.9 (31.0-37.0) g/dL RDW 13.9 (11.5-15.5) % Plt Count 222 (150-450) k/uL MPV 6.9 Neutrophils % 73 % Lymphocytes % 18 % Monocytes % 4 % Eosinophils % 4 % Basophils % 0 % Neutrophils # 6.1 (1.3-7.7) k/uL Lymphocytes # 1.5 (1.0-4.8) k/uL Monocytes # 0.3 (0-1.0) k/uL Eosinophils # 0.3 (0-0.7) k/uL Basophils # 0.0 (0-0.2) k/uL Sodium 135 L (137-145) mmol/L Potassium 5.7 H (3.5-5.1) mmol/L Chloride 105 (98-107) mmol/L Carbon Dioxide 19 L (22-30) mmol/L Anion Gap 11 mmol/L BUN 67 H (9-20) mg/dL Creatinine 2.40 H (0.66-1.25) mg/dL Est GFR (CKD-EPI)AfAm 29 (>60 ml/min/1.73 sqM) Est GFR (CKD-EPI)NonAf 25 (>60 ml/min/1.73 sqM) Glucose 135 H (74-99) mg/dL Calcium 8.9 (8.4-10.2) mg/dL Magnesium 2.2 (1.6-2.3) mg/dL Total Bilirubin 0.6 (0.2-1.3) mg/dL AST 26 (17-59) U/L ALT 13 (4-49) U/L Alkaline Phosphatase 93 (38-126) U/L Troponin I 0.035 H* (0.000-0.034) ng/mL Total Protein 7.1 (6.3-8.2) g/dL Albumin 4.0 (3.5-5.0) g/dL Urine Color Urine Appearance (Clear) Urine pH (5.0-8.0) Ur Specific [place] (1.001-1.035) Urine Protein (Negative) Urine Glucose (UA) (Negative) Urine Ketones (Negative) Urine Blood (Negative) Urine Nitrite (Negative) Urine Bilirubin (Negative) Urine Urobilinogen (<2.0) mg/dL Ur Leukocyte Esterase (Negative) Urine RBC (0-5) /hpf Urine WBC (0-5) /hpf Ur Squamous Epith Cells (0-4) /hpf Amorphous Sediment (None) /hpf Urine Bacteria (None) /hpf Urine Mucus (None) /hpf 06/15/20 Range/Units 22:26 WBC (3.8-10.6) k/uL RBC (4.30-5.90) m/uL Hgb (13.0-17.5) gm/dL Hct (39.0-53.0) % MCV (80.0-100.0) fL MCH (25.0-35.0) pg MCHC (31.0-37.0) g/dL RDW (11.5-15.5) % Plt Count (150-450) k/uL MPV Neutrophils % % Lymphocytes % % Monocytes % % Eosinophils % % Basophils % % Neutrophils # (1.3-7.7) k/uL Lymphocytes # (1.0-4.8) k/uL Monocytes # (0-1.0) k/uL Eosinophils # (0-0.7) k/uL Basophils # (0-0.2) k/uL Sodium (137-145) mmol/L Potassium (3.5-5.1) mmol/L Chloride (98-107) mmol/L Carbon Dioxide (22-30) mmol/L Anion Gap mmol/L BUN (9-20) mg/dL Creatinine (0.66-1.25) mg/dL Est GFR (CKD-EPI)AfAm (>60 ml/min/1.73 sqM) Est GFR (CKD-EPI)NonAf (>60 ml/min/1.73 sqM) Glucose (74-99) mg/dL Calcium (8.4-10.2) mg/dL Magnesium (1.6-2.3) mg/dL Total Bilirubin (0.2-1.3) mg/dL AST (17-59) U/L ALT (4-49) U/L Alkaline Phosphatase (38-126) U/L Troponin I (0.000-0.034) ng/mL Total Protein (6.3-8.2) g/dL Albumin (3.5-5.0) g/dL Urine Color Yellow Urine Appearance Cloudy (Clear) Urine pH 5.5 (5.0-8.0) Ur Specific [place] 1.013 (1.001-1.035) Urine Protein 2+ H (Negative) Urine Glucose (UA) Negative (Negative) Urine Ketones Negative (Negative) Urine Blood Negative (Negative) Urine Nitrite Negative (Negative) Urine Bilirubin Negative (Negative) Urine Urobilinogen <2.0 (<2.0) mg/dL Ur Leukocyte Esterase Moderate H (Negative) Urine RBC 1 (0-5) /hpf Urine WBC 50 H (0-5) /hpf Ur Squamous Epith Cells <1 (0-4) /hpf Amorphous Sediment Occasional H (None) /hpf Urine Bacteria Many H (None) /hpf Urine Mucus Rare H (None) /hpf - EKG Data EKG Comments: Suspect unspecified pacemaker failure, ventricular paced rhythm, no signs of an acute ischemia at this time. Is some similarity to his previous EKG on 12/30/2018. Ventricular rate 71, QRS duration to 18, QTC 538. Disposition Clinical Impression: Multiple falls, Weakness, Elevated troponin, Hyperkalemia, UTI (urinary tract infection) Disposition: ADMITTED IP TO THIS [facility] Condition: Stable Referrals: Aria Zarco DO [Primary Care Provider] - 1-2 days Decision Date: 06/16/20 Decision Time: 00:05
--- NOTE | 2020-06-15 21:30 | CT ---
EXAMINATION TYPE: CT brain wo con DATE OF EXAM: 06/15/2020 COMPARISON: 11/07/2018 HISTORY: Fall x2. Altered mental status. CT DLP: 1099.4 mGycm Automated exposure control for dose reduction was used. There is large area of hypodensity involving the right occipital lobe that measures 6.5 x 3.5 cm and consistent with old infarct. There is no mass effect nor midline shift. There is no sign of intracran ial hemorrhage. The calvarium is intact. Skull base is intact. IMPRESSION: Old right posterior cerebral artery infarct. No acute intracranial abnormality. No change compared to old exam.
--- NOTE | 2020-06-15 21:32 | XR ---
EXAMINATION TYPE: XR pelvis AP view DATE OF EXAM: 06/15/2020 COMPARISON: NONE HISTORY: Abdominal pain TECHNIQUE: Single view FINDINGS: Pelvic ring is intact. Proximal femurs are intact. Sacroiliac joints appear normal. There i s no evidence of a fracture. There is vascular calcification. IMPRESSION: Negative exam. No fracture.
--- NOTE | 2020-06-15 21:33 | XR ---
EXAMINATION TYPE: XR chest 2V DATE OF EXAM: 06/15/2020 COMPARISON: 01/10/2019 HISTORY: Weakness TECHNIQUE: FINDINGS: Heart is enlarged. There is no heart failure. There is a left axillary pacemaker. Lungs are clear of consolidation. There is no evidence of pleural effusion. Bony thorax is intact. IMPRESSION: No active cardiopulmonary disease. There is improved inspiration compared to old exam.
--- NOTE | 2020-06-15 21:35 | XR ---
EXAMINATION TYPE: XR lumbar spine 2 or 3V DATE OF EXAM: 06/15/2020 COMPARISON: NONE HISTORY: Low back pain TECHNIQUE: 3 views FINDINGS: Lumbar vertebra have normal alignment. Posterior elements are intact. There is no compressi on fracture. There is minor spurring of the endplates. Sacroiliac joints are intact. Abdominal aorta is atheromatous. There is some right upper quadrant calcification that could relate to chronic pancre atitis. IMPRESSION: Minor degenerative changes in the lumbar spine. No fracture seen.
[2020-06-15 21:55] LABS: Basophils % (A) 0 %; Eosinophils # (A) 0.3 k/uL (0-0.7); Eosinophils % (A) 4 %; HCT 38.9 % (39.0-53.0); HGB 12.8 gm/dL (13.0-17.5); Lymphocytes # (A) 1.5 k/uL (1.0-4.8); Lymphocytes % (A) 18 %; MCH 31.2 pg (25.0-35.0); MCHC 32.9 g/dL (31.0-37.0); Mean Platelet Volume 6.9; Monocytes # (A) 0.3 k/uL (0-1.0); Monocytes % (A) 4 %; Neutrophils # (A) 6.1 k/uL (1.3-7.7); Neutrophils % (A) 73 %; Platelet Count 222 k/uL (150-450); RDW 13.9 % (11.5-15.5); WBC 8.3 k/uL (3.8-10.6)
[2020-06-15 22:10] LABS: Calcium 8.9 mg/dL (8.4-10.2); Magnesium 2.2 mg/dL (1.6-2.3); Total Bilirubin 0.6 mg/dL (0.2-1.3); Total Protein 7.1 g/dL (6.3-8.2)
[2020-06-15 22:16] LABS: Potassium 5.7 mmol/L (3.5-5.1)
[2020-06-15 22:59] LABS: Amorphous Sediment,Urine Occasional /hpf; Appearance,Urine Cloudy (Clear); Bacteria,Urine Many /hpf; Bilirubin,Urine Negative (Negative); Blood,Urine Negative (Negative); Color,Urine Yellow; Glucose,Urine (UA) Negative (Negative); Ketones,Urine Negative (Negative); Leukocyte Esterase,Urine Moderate (Negative); Mucus,Urine Rare /hpf; Nitrite,Urine Negative (Negative); PH, Urine 5.5 (5.0-8.0); Protein,Urine 2+ (Negative); RBC,Urine 1 /hpf (0-5); Specific Gravity,Urine 1.013 (1.001-1.035); Squamous Epithelial Cell,Urine <1 /hpf (0-4); Urobilinogen,Urine <2.0 mg/dL (<2.0); WBC,Urine 50 /hpf (0-5)
[2020-06-15] MEDS ORDERED: ALBUTEROL NEB (CONC) 2.5 MG/0.5 ML INHALATION ONE (23:52)
[2020-06-15] MEDS ORDERED: CALCIUM GLUCONATE 1 GM in SODIUM CHLORIDE 0.9% 100 ML IVPB ONE (23:52)
[2020-06-15] MEDS ORDERED: ACETAMINOPHEN TAB 325 MG TAB PO PRN (23:53)
[2020-06-15] MEDS ORDERED: NALOXONE 0.4 MG/ML 1 ML VIAL IV PRN (23:53)
[2020-06-15] MEDS ORDERED: ONDANSETRON 4 MG/2 ML VIAL IVP PRN (23:53)
[2020-06-15] MEDS ORDERED: CIPROFLOXACIN HCL 500 MG TAB PO STA (23:57)
[2020-06-16 01:55] LABS: Glucose,Whole Blood 145 mg/dL (75-99)
[2020-06-16 06:03] LABS: Glucose,Whole Blood 178 mg/dL (75-99)
[2020-06-16] MEDS: INSULIN ASPART (NovoLOG) 100 UNIT/ML VIAL SQ SCH ×7 (07:13→20:31)
[2020-06-16] MEDS: NICOTINE 21MG/24HR PATCH TRANSDERM SCH (08:29)
--- NOTE | 2020-06-16 09:07 | P.CRDCN ---
History of Present Illness Consult date: 06/16/20 Reason for Consult (text): Elevated troponins History of present illness: History of present illness: This is 75-year-old male past medical history significant for dilated cardiomyopathy s/p ICD, nonischemic cardiomyopathy, hypertension, dyslipidemia, diabetes mellitus, CVA 14 years ago, chronic kidney disease with history of being on dialysis but off for many years and ongoing nicotine dependence. Patient was brought into the hospital due to fall at home landing on his buttocks, no head injury or loss of consciousness. He then had 2 more episodes of collapsing landing on his knees while he was walking with his walker. Leslie armenta is too weak to hold himself up. He is status post his second ovary vaccine yesterday. He is complaining of body aches. No fever or chills. No nausea or vomiting. No abdominal pain. Patient's vital signs were stable with heart rate in the 60s and 70s, blood pressure 127/73. EKG is a ventricular paced rhythm. Hemoglobin was 12.8, potassium 5.7, BUN 67, creatinine 2.4 which is patient's baseline. Urinalysis was positive for UTI. Troponin 0.035, 0.029, 0.031. Patient denies having any chest pain, shortness of breath at rest, lightheadedness or dizziness. He denies having any palpitations. Patient follows with Dr. Sullivan [facility] in [place]. Review Of Systems: Constitutional: No fever, no chills. Reports weakness, reports fatigue. EENT: No headache. No dizziness. Lungs: No shortness of breath, cough, no sputum production. No wheezing. Cardiovascular: No chest pain, no lower extremity edema. No palpitations. No paroxysmal nocturnal dyspnea. No orthopnea. No lightheadedness or dizziness. No syncopal episodes. Abdominal: No abdominal pain. No nausea, vomiting. No diarrhea. No constipation. No bloody or tarry stools.. No loss of appetite. Genitourinary: No dysuria.. No urinary retention. Patient incontinent of urine. Musculoskeletal: No myalgias. Reports muscle weakness, reports gait dysfunction, reports frequent falls. No back pain. No neck pain. Integumentary: No wounds, no lesions. No rash or pruritus. No unusual bruising. Neurologic: No aphasia. No facial droop. No change in mentation. No head injury. No headache. No paralysis. No paresthesia. Psychiatric: No depression. No anxiety. Endocrine: No abnormal blood sugars. Physical examination: Gen: This is a 75-year-old male. He is resting in bed and appears to be comfortable and in no acute distress. VS: Afebrile, heart rate in the 70s, blood pressure 105/59, pulse ox 95% on room air. panel monitor has been ventricular paced rhythm with occasional PVCs. HEENT: Head is atraumatic, normocephalic. Pupils equal, round. Sclerae is anicteric. NECK: Supple. No JVD. No lymphadenopathy. No thyromegaly. LUNGS: Clear to auscultation. No wheezes or rhonchi. No intercostal retractions. HEART: Regular rate and rhythm. No murmur. ABDOMEN: Soft. Bowel sounds are present. No masses. No tenderness. EXTREMITIES: No pedal edema. No calf tenderness. Dorsalis pedis +2 bilaterally. NEUROLOGICAL: Patient is awake, alert and oriented x3. Cranial nerves 2 through 12 are grossly intact. Assessment: Mild elevation in troponins not indicative of acute coronary syndrome Second COVID-19 vaccine administration yesterday Weakness and body aches most likely secondary to vaccine Nonischemic cardiomyopathy status post ICD Hypertension Hyperlipidemia Diabetes mellitus type 2 History of CVA Chronic kidney disease Plan: Resume patient's home medications to include eliquis 2.5 mg twice daily, Lipitor 80 mg at bedtime, Coreg 3.125 mg twice daily, Ranexa 1000 mg twice daily Obtain 2-D echocardiogram and Doppler study to assess cardiac structure and function. Further recommendations to follow based upon clinical course Thank you kindly for this consultation. Nurse practitioner note has been reviewed, I agree with documented findings and plan of care. Patient was seen and examined. Past Medical History Past Medical History: Atrial Fibrillation, Heart Failure, COPD, CVA/TIA, Dementia, Diabetes Mellitus, GERD/Reflux, Hyperlipidemia, Hypertension, Myocardial Infarction (ND), Renal Disease, Sleep Apnea/CPAP/BIPAP, Vascular Disorder Additional Past Medical History / Comment(s): IDDM type II, 2006 CVA-more sleepy since, seizures ruled out by [facility], DION-did not tolerate mask, chronic kidney disease stage III, peripheral vascular disease, previous history of UTI with E. 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 He has a walker and a wheelchair neither of which he uses much. He no longer drives. His spouse drives. His spouse manages his medications. Smoking Status: Current every day smoker Past Alcohol Use History: None Reported Additional Past Alcohol Use History / Comment(s): Pt started smoking as a teen. He is a 2 ppd smoker. Past Drug Use History: None Reported - Past Family History Father Family Medical History: No Reported History Additional Family Medical History / Comment(s): Father in a MVA. Mother Family Medical History: Cancer Additional Family Medical History / Comment(s): Pt/spouse do not recall type of cancer. Brother(s) Family Medical History: Cancer Medications and Allergies Home Medications Medication Instructions Recorded Confirmed Type Famotidine [Pepcid] 20 mg PO DAILY 01/16/18 06/16/20 History INSULIN ASPART (NovoLOG) [NovoLOG See Protocol SQ AC-TID 01/16/18 06/16/20 History (formulary)] Donepezil [Aricept] 5 mg PO HS #30 tab 02/03/18 06/16/20 Rx Furosemide [Lasix] 40 mg PO DAILY PRN 11/07/18 06/16/20 History Memantine [Namenda] 10 mg PO DAILY 11/07/18 06/16/20 History Cholecalciferol [Vitamin D3 (25 1,000 unit PO DAILY 12/30/18 06/16/20 History Mcg = 1000 Iu)] Apixaban [Eliquis] 2.5 mg PO BID #60 tablet 01/11/19 06/16/20 Rx INSULIN ASPART (NovoLOG) [NovoLOG 6 unit SQ AC-TID vial 01/12/19 06/16/20 Rx (formulary)] Atorvastatin Calcium [Lipitor] 80 mg PO HS 06/16/20 06/16/20 History Carvedilol [Coreg] 3.125 mg PO BID 06/16/20 06/16/20 History Desvenlafaxine [Pristiq ER] 100 mg PO DAILY 06/16/20 06/16/20 History Insulin Glargine,Hum.rec.anlog 28 unit SQ HS 06/16/20 06/16/20 History [Lantus Solostar] Ranolazine [Ranolazine ER] 1,000 mg PO BID 06/16/20 06/16/20 History Allergies Allergy/AdvReac Type Severity Reaction Status Date / Time codeine Allergy Unknown Verified 06/16/20 08:55 [From Tylenol-Codeine #3] Physical Exam Vitals: Vital Signs Temp Pulse Pulse Resp BP BP Pulse Ox 06/16/20 08:17 98.0 F 70 15 105/59 95 06/16/20 04:00 97.8 F 77 18 133/61 97 06/16/20 03:00 69 18 06/16/20 01:13 78 06/16/20 01:11 97.8 F 69 18 165/87 96 06/16/20 01:08 70 06/15/20 22:38 70 16 137/60 96 06/15/20 19:39 98.9 F 69 18 127/73 99 Intake and Output 06/15/20 06/16/20 06/16/20 21:59 06:59 14:59 Other: Voiding Method # Voids # Bowel Movements Weight Results 06/15/20 21:41 06/16/20 00:09 Cardiac Enzymes 06/15/20 06/15/20 06/16/20 Range/Units 21:41 21:41 00:09 AST 26 (17-59) U/L Troponin I 0.035 H* 0.029 (0.000-0.034) ng/mL 06/16/20 Range/Units 04:15 AST (17-59) U/L Troponin I 0.031 (0.000-0.034) ng/mL CBC 06/15/20 Range/Units 21:41 WBC 8.3 (3.8-10.6) k/uL RBC 4.10 L (4.30-5.90) m/uL Hgb 12.8 L (13.0-17.5) gm/dL Hct 38.9 L (39.0-53.0) % Plt Count 222 (150-450) k/uL Comprehensive Metabolic Panel 06/15/20 06/16/20 Range/Units 21:41 00:09 Sodium 135 L (137-145) mmol/L Potassium 5.7 H 5.2 H (3.5-5.1) mmol/L Chloride 105 (98-107) mmol/L Carbon Dioxide 19 L (22-30) mmol/L BUN 67 H (9-20) mg/dL Creatinine 2.40 H (0.66-1.25) mg/dL Glucose 135 H (74-99) mg/dL Calcium 8.9 (8.4-10.2) mg/dL AST 26 (17-59) U/L ALT 13 (4-49) U/L Alkaline Phosphatase 93 (38-126) U/L Total Protein 7.1 (6.3-8.2) g/dL Albumin 4.0 (3.5-5.0) g/dL Current Medications Generic Name Dose Route Start Last Admin Trade Name Freq PRN Reason Stop Dose Admin Acetaminophen 650 mg 06/15/20 23:53 Acetaminophen Tab 325 Mg Tab PO Q6HR PRN Mild Pain or Fever > 100.5 Insulin Aspart 0 unit 06/16/20 00:39 06/16/20 07:16 Insulin Aspart (Novolog) 100 Unit/Ml Vial SQ 2 unit ACHS VINCENT Administration Protocol Naloxone HCl 0.2 mg 06/15/20 23:53 Naloxone 0.4 Mg/Ml 1 Ml Vial IV Q2M PRN Opioid Reversal Nicotine 1 patch 06/16/20 09:00 06/16/20 08:29 Nicotine 21mg/24hr Patch TRANSDERM 1 patch DAILY VINCENT Administration Ondansetron HCl 4 mg 06/15/20 23:53 Ondansetron 4 Mg/2 Ml Vial IVP Q8HR PRN Nausea And Vomiting Intake and Output 06/15/20 06/16/20 06/16/20 21:59 06:59 14:59 Other: Voiding Method # Voids # Bowel Movements Weight 06/15/20 21:41 06/16/20 00:09
[2020-06-16] MEDS: APIXABAN 2.5 MG TABLET PO SCH ×2 (09:21→20:37)
[2020-06-16] MEDS: carvediloL 3.125 MG TAB PO SCH ×2 (09:21→17:50)
[2020-06-16] MEDS: RANOLAZINE 500 MG TAB.ER.12H PO SCH ×2 (09:21→20:37)
[2020-06-16] MEDS ORDERED: FUROSEMIDE 40 MG TAB PO PRN (09:52)
--- NOTE | 2020-06-16 10:22 | P.NPCON ---
History of Present Illness - Reason for Consult Consult date: 06/16/20 chronic renal failure - Chief Complaint Admitted with fall - History of Present Illness This is a 75-year-old male known to us with chronic kidney disease. He was admitted with frequent falls. Denies any dizziness he says is from generalized weakness. He denies any nausea vomiting diarrhea abdominal pain no fever chills cough shortness of breath dizziness. He is known with chronic kidney disease creatinine in the 2 range and was initially seen by us here in the hospital on 12/31/2018 with hyperkalemia and acute kidney injury at the time. Potassium was 7.8. Is known with atrial fibrillation CHF, nonischemic cardiomyopathy status post ICD COPD dementia diabetes mellitus hypertension peripheral vascular disease with carotid endarterectomy obstructive sleep apnea. Past Medical History Past Medical History: Atrial Fibrillation, Heart Failure, COPD, CVA/TIA, Dementia, Diabetes Mellitus, GERD/Reflux, Hyperlipidemia, Hypertension, Myocardial Infarction ([place]), Renal Disease, Sleep Apnea/CPAP/BIPAP, Vascular Disorder Additional Past Medical History / Comment(s): IDDM type II, 2006 CVA-more sleepy since, seizures ruled out by [facility], DION-did not tolerate mask, chronic kidney disease stage III, peripheral vascular disease, previous history of UTI with E. 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 He has a walker and a wheelchair neither of which he uses much. He no longer drives. His spouse drives. His spouse manages his medications. Smoking Status: Current every day smoker Past Alcohol Use History: None Reported Additional Past Alcohol Use History / Comment(s): Pt started smoking as a teen. He is a 2 ppd smoker. Past Drug Use History: None Reported - Past Family History Father Family Medical History: No Reported History Additional Family Medical History / Comment(s): Father in a MVA. Mother Family Medical History: Cancer Additional Family Medical History / Comment(s): Pt/spouse do not recall type of cancer. Brother(s) Family Medical History: Cancer Medications and Allergies Home Medications Medication Instructions Recorded Confirmed Type Famotidine [Pepcid] 20 mg PO DAILY 01/16/18 06/16/20 History INSULIN ASPART (NovoLOG) [NovoLOG See Protocol SQ AC-TID 01/16/18 06/16/20 History (formulary)] Donepezil [Aricept] 5 mg PO HS #30 tab 02/03/18 06/16/20 Rx Furosemide [Lasix] 40 mg PO DAILY PRN 11/07/18 06/16/20 History Memantine [Namenda] 10 mg PO DAILY 11/07/18 06/16/20 History Cholecalciferol [Vitamin D3 (25 1,000 unit PO DAILY 12/30/18 06/16/20 History Mcg = 1000 Iu)] Apixaban [Eliquis] 2.5 mg PO BID #60 tablet 01/11/19 06/16/20 Rx INSULIN ASPART (NovoLOG) [NovoLOG 6 unit SQ AC-TID vial 01/12/19 06/16/20 Rx (formulary)] Atorvastatin Calcium [Lipitor] 80 mg PO HS 06/16/20 06/16/20 History Carvedilol [Coreg] 3.125 mg PO BID 06/16/20 06/16/20 History Desvenlafaxine [Pristiq ER] 100 mg PO DAILY 06/16/20 06/16/20 History Insulin Glargine,Hum.rec.anlog 28 unit SQ HS 06/16/20 06/16/20 History [Lantus Solostar] Ranolazine [Ranolazine ER] 1,000 mg PO BID 06/16/20 06/16/20 History Allergies Allergy/AdvReac Type Severity Reaction Status Date / Time codeine Allergy Unknown Verified 06/16/20 08:55 [From Tylenol-Codeine #3] Physical Exam Vitals: Vital Signs Temp Pulse Pulse Resp BP BP Pulse Ox 06/16/20 08:17 98.0 F 70 15 105/59 95 06/16/20 04:00 97.8 F 77 18 133/61 97 06/16/20 03:00 69 18 06/16/20 01:13 78 06/16/20 01:11 97.8 F 69 18 165/87 96 06/16/20 01:08 70 06/15/20 22:38 70 16 137/60 96 06/15/20 19:39 98.9 F 69 18 127/73 99 Intake and Output 06/15/20 06/16/20 06/16/20 21:59 06:59 14:59 Other: Voiding Method Diaper Incontinent # Voids # Bowel Movements Weight On examination is awake alert HEENT exam no JVP neck is supple no facial asymmetry Lungs are clear to auscultation good air entry bilaterally Heart sounds unremarkable for any murmur rub Abdomen soft nontender no organomegaly status masses Extremity exam was no edema Neurologically awake alert oriented 3 Maximilian all his extremities but has generalized weakness. Results - Lab Results Most recent lab results Calcium 8.9 mg/dL (8.4-10.2) 06/15/20 21:41 Magnesium 2.2 mg/dL (1.6-2.3) 06/15/20 21:41 06/15/20 21:41 06/16/20 00:09 Assessment and Plan Assessment: Impression 1. 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 Urinalysis on 06/15/2020 showed 2+ proteinuria, protein to creatinine ratio is 2.5 g dated 10/03/2019. Creatinine is 2.3 on 09/21/2019, 2.4 on 02/12/2020 which is his baseline 2. 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 Type IV RTA with bicarb 19 gap of 11 Admitted with frequent falls, generalized weakness 4. Admitted with frequent falls secondary to generalized weakness 5. Diabetes mellitus. 6. History of dementia 7. History of atrial fibrillation, nonischemic cardiomyopathy status post ICD, obstructive sleep apnea, left carotid endarterectomy in the past,'s Recommendation 1. Maintain Lasix to improve his potassium 2. Add sodium bicarbonate to improve his acidosis as well as the potassium. 3. 2 g potassium restricted diet
[2020-06-16 12:00] LABS: Glucose,Whole Blood 136 mg/dL (75-99)
[2020-06-16] MEDS: SODIUM BICARBONATE TAB 650 MG TAB PO SCH ×3 (12:44→20:37)
--- NOTE | 2020-06-16 14:53 | P.HPIM ---
History of Present Illness Patient is a 75-year-old male came in after a fall generalized weakness. Patient felt extremely weak and tired and fatigued and had a fever yesterday after receiving second dose of cold 19 vaccine. Patient also found to have mildly elevated troponin which later normalized. Cardiology was consulted and patient was subsequently admitted. Patient's fever resolved patient does not have any evidence of a sepsis at this time. Patient does have chronic kidney disease with serum creatinine around 2. Patient denied any chest pain. feels and looks much better today. He does have history of atrial fibrillation on ischemic cardiomyopathy and patient has an AICD in place patient also had a left carotid endarterectomy in the past. Review of Systems REVIEW OF SYSTEMS: CONSTITUTIONAL: No fever, no malaise, no fatigue. HEENT: No recent visual problems or hearing problems. Denied any sore throat. CARDIOVASCULAR: No chest pain, orthopnea, PND, no palpitations, no syncope. PULMONARY: No shortness of breath, no cough, no hemoptysis. GASTROINTESTINAL: No diarrhea, no nausea, no vomiting, no abdominal pain. NEUROLOGICAL: No headaches, no weakness, no numbness. HEMATOLOGICAL: Denies any bleeding or petechiae. GENITOURINARY: Denies any burning micturition, frequency, or urgency. MUSCULOSKELETAL/RHEUMATOLOGICAL: Denies any joint pain, swelling, or any muscle pain. ENDOCRINE: Denies any polyuria or polydipsia. The rest of the 14-point review of systems is negative. Past Medical History Past Medical History: Atrial Fibrillation, Heart Failure, COPD, CVA/TIA, Dementia, Diabetes Mellitus, GERD/Reflux, Hyperlipidemia, Hypertension, Myocard ial Infarction ([place]), Renal Disease, Sleep Apnea/CPAP/BIPAP, Vascular Disorder Additional Past Medical History / Comment(s): IDDM type II, 2006 CVA-more sleepy since, seizures ruled out by [facility], DION-did not tolerate mask, chronic kidney disease stage III, peripheral vascular disease, previous history of UTI with E. coli Last Myocardial Infarction Date:: 2006 History of Any Multi-Drug Resistant Organisms: None Reported Past Surgical History: Heart Catheterization, Pacemaker Additional Past Surgical History / Comment(s): 2007 Cardiac cath, L caratid endartectomy, pacemaker, R foot bunionectomy, R 5th finger amputation d/t press accident, colonoscopy, bilateral cataracts removed/lens implants, Past Anesthesia/Blood Transfusion Reactions: No Reported Reaction Type of Cardiac Device: Permanent Pacemaker Device Placement Date:: 2009 Past Psychological History: Anxiety, Depression Additional Psychological History / Comment(s): Pt resides with his spouse. He has a walker and a wheelchair neither of which he uses much. He no longer drives. His spouse drives. His spouse manages his medications. Smoking Status: Current every day smoker Past Alcohol Use History: None Reported Additional Past Alcohol Use History / Comment(s): Pt started smoking as a teen. He is a 2 ppd smoker. Past Drug Use History: None Reported - Past Family History Father Family Medical History: No Reported History Additional Family Medical History / Comment(s): Father in a MVA. Mother Family Medical History: Cancer Additional Family Medical History / Comment(s): Pt/spouse do not recall type of cancer. Brother(s) Family Medical History: Cancer Medications and Allergies Home Medications Medication Instructions Recorded Confirmed Type Famotidine [Pepcid] 20 mg PO DAILY 01/16/18 06/16/20 History INSULIN ASPART (NovoLOG) [NovoLOG See Protocol SQ AC-TID 01/16/18 06/16/20 History (formulary)] Donepezil [Aricept] 5 mg PO HS #30 tab 02/03/18 06/16/20 Rx Furosemide [Lasix] 40 mg PO DAILY PRN 11/07/18 06/16/20 History Memantine [Namenda] 10 mg PO DAILY 11/07/18 06/16/20 History Cholecalciferol [Vitamin D3 (25 1,000 unit PO DAILY 12/30/18 06/16/20 History Mcg = 1000 Iu)] Apixaban [Eliquis] 2.5 mg PO BID #60 tablet 01/11/19 06/16/20 Rx INSULIN ASPART (NovoLOG) [NovoLOG 6 unit SQ AC-TID vial 01/12/19 06/16/20 Rx (formulary)] Atorvastatin Calcium [Lipitor] 80 mg PO HS 06/16/20 06/16/20 History Carvedilol [Coreg] 3.125 mg PO BID 06/16/20 06/16/20 History Desvenlafaxine [Pristiq ER] 100 mg PO DAILY 06/16/20 06/16/20 History Insulin Glargine,Hum.rec.anlog 28 unit SQ HS 06/16/20 06/16/20 History [Lantus Solostar] Ranolazine [Ranolazine ER] 1,000 mg PO BID 06/16/20 06/16/20 History Allergies Allergy/AdvReac Type Severity Reaction Status Date / Time codeine Allergy Unknown Verified 06/16/20 08:55 [From Tylenol-Codeine #3] Physical Exam Vitals: Vital Signs Temp Pulse Pulse Resp BP BP Pulse Ox 06/16/20 12:00 98.3 F 70 16 129/60 99 06/16/20 08:17 98.0 F 70 15 105/59 95 06/16/20 04:00 97.8 F 77 18 133/61 97 06/16/20 03:00 69 18 06/16/20 01:13 78 06/16/20 01:11 97.8 F 69 18 165/87 96 06/16/20 01:08 70 06/15/20 22:38 70 16 137/60 96 06/15/20 19:39 98.9 F 69 18 127/73 99 Intake and Output 06/15/20 06/16/20 06/16/20 21:59 06:59 14:59 Other: Voiding Method Diaper Incontinent # Voids # Bowel Movements Weight PHYSICAL EXAMINATION: GENERAL: The patient is alert and oriented x3, not in any acute distress. Well developed, well nourished. HEENT: Pupils are round and equally reacting to light. EOMI. No scleral icterus. No conjunctival pallor. Normocephalic, atraumatic. No pharyngeal erythema. No thyromegaly. CARDIOVASCULAR: S1 and S2 present. No murmurs, rubs, or gallops. PULMONARY: Chest is clear to auscultation, no wheezing or crackles. ABDOMEN: Soft, nontender, nondistended, normoactive bowel sounds. No palpable organomegaly. MUSCULOSKELETAL: No joint swelling or deformity. EXTREMITIES: No cyanosis, clubbing, or pedal edema. NEUROLOGICAL: Gross neurological examination did not reveal any focal deficits. SKIN: No rashes. Results CBC & Chem 7: 06/15/20 21:41 06/16/20 00:09 Labs: Abnormal Lab Results - Last 24 Hours (Table) 06/15/20 06/15/20 06/15/20 Range/Units 21:41 21:41 21:41 RBC 4.10 L (4.30-5.90) m/uL Hgb 12.8 L (13.0-17.5) gm/dL Hct 38.9 L (39.0-53.0) % Sodium 135 L (137-145) mmol/L Potassium 5.7 H (3.5-5.1) mmol/L Carbon Dioxide 19 L (22-30) mmol/L BUN 67 H (9-20) mg/dL Creatinine 2.40 H (0.66-1.25) mg/dL Glucose 135 H (74-99) mg/dL POC Glucose (mg/dL) (75-99) mg/dL Troponin I 0.035 H* (0.000-0.034) ng/mL Urine Protein (Negative) Ur Leukocyte Esterase (Negative) Urine WBC (0-5) /hpf Amorphous Sediment (None) /hpf Urine Bacteria (None) /hpf Urine Mucus (None) /hpf 06/15/20 06/16/20 06/16/20 Range/Units 22:26 00:09 01:53 RBC (4.30-5.90) m/uL Hgb (13.0-17.5) gm/dL Hct (39.0-53.0) % Sodium (137-145) mmol/L Potassium 5.2 H (3.5-5.1) mmol/L Carbon Dioxide (22-30) mmol/L BUN (9-20) mg/dL Creatinine (0.66-1.25) mg/dL Glucose (74-99) mg/dL POC Glucose (mg/dL) 145 H (75-99) mg/dL Troponin I (0.000-0.034) ng/mL Urine Protein 2+ H (Negative) Ur Leukocyte Esterase Moderate H (Negative) Urine WBC 50 H (0-5) /hpf Amorphous Sediment Occasional H (None) /hpf Urine Bacteria Many H (None) /hpf Urine Mucus Rare H (None) /hpf 06/16/20 06/16/20 Range/Units 05:59 11:59 RBC (4.30-5.90) m/uL Hgb (13.0-17.5) gm/dL Hct (39.0-53.0) % Sodium (137-145) mmol/L Potassium (3.5-5.1) mmol/L Carbon Dioxide (22-30) mmol/L BUN (9-20) mg/dL Creatinine (0.66-1.25) mg/dL Glucose (74-99) mg/dL POC Glucose (mg/dL) 178 H 136 H (75-99) mg/dL Troponin I (0.000-0.034) ng/mL Urine Protein (Negative) Ur Leukocyte Esterase (Negative) Urine WBC (0-5) /hpf Amorphous Sediment (None) /hpf Urine Bacteria (None) /hpf Urine Mucus (None) /hpf Microbiology - Last 24 Hours (Table) 06/15/20 22:26 Urine Culture - Preliminary Urine,Catheterized Assessment and Plan Plan: -Generalized weak weakness, fall, fever: This happened after he received a second dose of Covid 19 vaccine. Generalized weakness and fever unknown effects of Covid 19 vaccine. I do not believe will need further workup anyways card iology and nephrology is evaluated in the patient if they cleared for discharge patient will be discharged today patient is getting an echocardiogram today. After that patient most probably can be discharged - mildly elevated troponin secondary to chronic kidney disease -Hyperkalemia secondary to chronic kidney disease: Patient will be asked to use low potassium diet, renal diet at home -Atrial fibrillation, nonischemic cardiomyopathy, patient is on Eliquis which will be continued patient presently has an AICD. 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 -Type 2 diabetes mellitus resumed on home regimen Obstructive sleep apnea -Nonischemic cardiomyopathy chronic systolic dysfunction patient doesn't have any acute exacerbation at this time -Chronic kidney disease stage IV secondary to diabetic nephropathy. Patient most probably will be discharged today if cleared by cardiology
--- NOTE | 2020-06-16 14:54 | P.DS ---
Providers Date of admission: 06/15/20 23:49 Attending physician: Ronna Novak Consults: 06/15/20 23:54 Consult Physician Urgent Consulting Provider: [facility] Consult Reason/Comments: Elevated troponin, weakness Do you want consulting provider notified?: Yes Consult Physician Urgent Consulting Provider: William Dunbar Consult Reason/Comments: Elevated creatinine, hyperkalemia Do you want consulting provider notified?: Yes Primary care physician: Aria [facility] Course: Please review my history of present illness for further details Patient Condition at Discharge: Stable Plan - Discharge Summary New Discharge Prescriptions: Continue Famotidine [Pepcid] 20 mg PO DAILY INSULIN ASPART (NovoLOG) [NovoLOG (formulary)] See Protocol SQ AC-TID Donepezil [Aricept] 5 mg PO HS #30 tab Furosemide [Lasix] 40 mg PO DAILY PRN PRN Reason: Edema Memantine [Namenda] 10 mg PO DAILY Cholecalciferol [Vitamin D3 (25 Mcg = 1000 Iu)] 1,000 unit PO DAILY Apixaban [Eliquis] 2.5 mg PO BID #60 tablet INSULIN ASPART (NovoLOG) [NovoLOG (formulary)] 6 unit SQ AC-TID vial Insulin Glargine,Hum.rec.anlog [Lantus Solostar] 28 unit SQ HS Carvedilol [Coreg] 3.125 mg PO BID Atorvastatin Calcium [Lipitor] 80 mg PO HS Ranolazine [Ranolazine ER] 1,000 mg PO BID Desvenlafaxine [Pristiq ER] 100 mg PO DAILY Discharge Medication List Famotidine [Pepcid] 20 mg PO DAILY 01/16/18 [History] INSULIN ASPART (NovoLOG) [NovoLOG (formulary)] See Protocol SQ AC-TID 01/16/18 [History] Donepezil [Aricept] 5 mg PO HS #30 tab 02/03/18 [Rx] Furosemide [Lasix] 40 mg PO DAILY PRN 11/07/18 [History] Memantine [Namenda] 10 mg PO DAILY 11/07/18 [History] Cholecalciferol [Vitamin D3 (25 Mcg = 1000 Iu)] 1,000 unit PO DAILY 12/30/18 [History] Apixaban [Eliquis] 2.5 mg PO BID #60 tablet 01/11/19 [Rx] INSULIN ASPART (NovoLOG) [NovoLOG (formulary)] 6 unit SQ AC-TID vial 01/12/19 [Rx] Atorvastatin Calcium [Lipitor] 80 mg PO HS 06/16/20 [History] Carvedilol [Coreg] 3.125 mg PO BID 06/16/20 [History] Desvenlafaxine [Pristiq ER] 100 mg PO DAILY 06/16/20 [History] Insulin Glargine,Hum.rec.anlog [Lantus Solostar] 28 unit SQ HS 06/16/20 [History] Ranolazine [Ranolazine ER] 1,000 mg PO BID 06/16/20 [History] Follow up Appointment(s)/Referral(s): Aria Zarco DO [Primary Care Provider] - 3 Days Activity/Diet/Wound Care/Special Instructions: Cardiac, diabetic and renal diet Discharge Disposition: HOME WITH HOME HEALTH SERVICES
[2020-06-16 17:10] LABS: Glucose,Whole Blood 101 mg/dL (75-99)
[2020-06-16 20:14] LABS: Glucose,Whole Blood 161 mg/dL (75-99)
[2020-06-16] MEDS: INSULIN DETEMIR (LEVEMIR) 100 UNIT/ML SYR SQ SCH (20:32)
[2020-06-16] MEDS: ATORVASTATIN 80 MG TAB PO SCH (20:37)
[2020-06-16] MEDS: DONEPEZIL 5 MG TAB PO SCH (20:37)
[2020-06-17 06:12] LABS: Glucose,Whole Blood 146 mg/dL (75-99)
[2020-06-17] MEDS: INSULIN ASPART (NovoLOG) 100 UNIT/ML VIAL SQ SCH ×7 (06:25→20:54)
[2020-06-17] MEDS: carvediloL 3.125 MG TAB PO SCH ×2 (06:25→17:23)
[2020-06-17] MEDS: RANOLAZINE 500 MG TAB.ER.12H PO SCH ×2 (09:48→20:55)
[2020-06-17] MEDS: FAMOTIDINE 20 MG TAB PO SCH (09:48)
[2020-06-17] MEDS: APIXABAN 2.5 MG TABLET PO SCH ×2 (09:49→20:55)
[2020-06-17] MEDS: DESVENLAFAXINE SUCCINATE 50 MG TAB.ER.24H PO SCH (09:49)
[2020-06-17] MEDS: NICOTINE 21MG/24HR PATCH TRANSDERM SCH (09:49)
[2020-06-17] MEDS: MEMANTINE 10 MG TAB PO SCH (09:49)
[2020-06-17] MEDS: SODIUM BICARBONATE TAB 650 MG TAB PO SCH ×4 (09:49→20:55)
[2020-06-17 11:00] LABS: Calcium 9.1 mg/dL (8.4-10.2); Potassium 5.4 mmol/L (3.5-5.1)
--- NOTE | 2020-06-17 11:17 | P.DS ---
Providers Date of admission: 06/15/20 23:49 Attending physician: Ronna Novak Consults: 06/15/20 23:54 Consult Physician Urgent Consulting Provider: [facility] Consult Reason/Comments: Elevated troponin, weakness Do you want consulting provider notified?: Yes Consult Physician Urgent Consulting Provider: William Dunbar Consult Reason/Comments: Elevated creatinine, hyperkalemia Do you want consulting provider notified?: Yes Primary care physician: [facility] Course: Patient is a 75-year-old male came in after a fall generalized weakness. Patient felt extremely weak and tired and fatigued and had a fever yesterday after receiving second dose of cold 19 vaccine. Patient also found to have mildly elevated troponin which later normalized. Cardiology was consulted and patient was subsequently admitted. Patient's fever resolved patient does not have any evidence of a sepsis at this time. Patient does have chronic kidney disease with serum creatinine around 2. Patient denied any chest pain. feels and looks much better today. He does have history of atrial fibrillation on ischemic cardiomyopathy and patient has an AICD in place patient also had a left carotid endarterectomy in the past. 06/17/2020 Patient was discharged yesterday unsure why he ended up staying in the hospital although there is a pending echocardiogram. Patient will be evaluated by p hysical therapy occupational therapy after that patient probably can be discharged. Patient has chronic kidney disease from diabetic nephropathy and patient's symptoms are expected after second dose Covid 19 vaccine. PHYSICAL EXAMINATION: GENERAL: The patient is alert and oriented x3, not in any acute distress. Well developed, well nourished. HEENT: Pupils are round and equally reacting to light. EOMI. No scleral icterus. No conjunctival pallor. Normocephalic, atraumatic. No pharyngeal erythema. No thyromegaly. CARDIOVASCULAR: S1 and S2 present. No murmurs, rubs, or gallops. PULMONARY: Chest is clear to auscultation, no wheezing or crackles. ABDOMEN: Soft, nontender, nondistended, normoactive bowel sounds. No palpable organomegaly. MUSCULOSKELETAL: No joint swelling or deformity. EXTREMITIES: No cyanosis, clubbing, or pedal edema. NEUROLOGICAL: Gross neurological examination did not reveal any focal deficits. SKIN: No rashes. Assessment and Plan Plan: -Generalized weak weakness, fall, fever: This happened after he received a second dose of Covid 19 vaccine. Generalized weakness and fever unknown effects of Covid 19 vaccine. I do not believe will need further workup anyways cardiology and nephrology is evaluated patient will be discharged today for echocardiogram and physical therapy occupational therapy evaluation. - mildly elevated troponin secondary to chronic kidney disease -Hyperkalemia secondary to chronic kidney disease: Patient will be asked to use low potassium diet, renal diet at home -Atrial fibrillation, nonischemic cardiomyopathy, patient is on Eliquis which will be continued patient presently has an AICD. 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 -Type 2 diabetes mellitus resumed on home regimen Obstructive sleep apnea -Nonischemic cardiomyopathy chronic systolic dysfunction patient doesn't have any acute exacerbation at this time -Chronic kidney disease stage IV secondary to diabetic nephropathy. Patient Condition at Discharge: Stable Plan - Discharge Summary New Discharge Prescriptions: Continue Famotidine [Pepcid] 20 mg PO DAILY INSULIN ASPART (NovoLOG) [NovoLOG (formulary)] See Protocol SQ AC-TID Donepezil [Aricept] 5 mg PO HS #30 tab Furosemide [Lasix] 40 mg PO DAILY PRN PRN Reason: Edema Memantine [Namenda] 10 mg PO DAILY Cholecalciferol [Vitamin D3 (25 Mcg = 1000 Iu)] 1,000 unit PO DAILY Apixaban [Eliquis] 2.5 mg PO BID #60 tablet INSULIN ASPART (NovoLOG) [NovoLOG (formulary)] 6 unit SQ AC-TID vial Insulin Glargine,Hum.rec.anlog [Lantus Solostar] 28 unit SQ HS Carvedilol [Coreg] 3.125 mg PO BID Atorvastatin Calcium [Lipitor] 80 mg PO HS Ranolazine [Ranolazine ER] 1,000 mg PO BID Desvenlafaxine [Pristiq ER] 100 mg PO DAILY Discharge Medication List Famotidine [Pepcid] 20 mg PO DAILY 01/16/18 [History] INSULIN ASPART (NovoLOG) [NovoLOG (formulary)] See Protocol SQ AC-TID 01/16/18 [History] Donepezil [Aricept] 5 mg PO HS #30 tab 02/03/18 [Rx] Furosemide [Lasix] 40 mg PO DAILY PRN 11/07/18 [History] Memantine [Namenda] 10 mg PO DAILY 11/07/18 [History] Cholecalciferol [Vitamin D3 (25 Mcg = 1000 Iu)] 1,000 unit PO DAILY 12/30/18 [History] Apixaban [Eliquis] 2.5 mg PO BID #60 tablet 01/11/19 [Rx] INSULIN ASPART (NovoLOG) [NovoLOG (formulary)] 6 unit SQ AC-TID vial 01/12/19 [Rx] Atorvastatin Calcium [Lipitor] 80 mg PO HS 06/16/20 [History] Carvedilol [Coreg] 3.125 mg PO BID 06/16/20 [History] Desvenlafaxine [Pristiq ER] 100 mg PO DAILY 06/16/20 [History] Insulin Glargine,Hum.rec.anlog [Lantus Solostar] 28 unit SQ HS 06/16/20 [History] Ranolazine [Ranolazine ER] 1,000 mg PO BID 06/16/20 [History] Follow up Appointment(s)/Referral(s): Aria Zarco DO [Primary Care Provider] - 3 Days Activity/Diet/Wound Care/Special Instructions: Cardiac, diabetic and renal diet Discharge Disposition: HOME WITH HOME HEALTH SERVICES
[2020-06-17 11:54] LABS: Glucose,Whole Blood 335 mg/dL (75-99)
--- NOTE | 2020-06-17 12:31 | P.PN ---
Subjective Patient is seen in follow-up for chronic kidney disease. Renal function stable. Has a Fernández catheter for urinary retention. Nonoliguric. Oral intake fair. No vomiting or diarrhea. No chest pain or shortness of breath. No edema. Vital signs are stable. General: The patient appeared well nourished and normally developed. HEENT: Head exam is unremarkable. Neck is without jugular venous distension. LUNGS: Breath sounds decreased. HEART: Rate and Rhythm are regular. ABDOMEN: Soft, nontender. EXTREMITITES: No edema. Objective - Vital Signs Vital signs: Vital Signs Temp 98.1 F 06/17/20 09:45 Pulse 70 06/17/20 09:45 Resp 16 06/17/20 09:45 BP 122/58 06/17/20 09:45 Pulse Ox 96 06/17/20 09:45 Intake & Output 06/16/20 06/17/20 06/17/20 18:59 06:59 18:59 Intake Total 240 360 240 Output Total 900 Balance -660 360 240 Weight 81 kg Intake: Oral 240 360 240 Output: Urine 900 Other: Voiding Method Diaper Diaper Diaper Incontinent Incontinent Incontinent # Voids 5 - Labs CBC & Chem 7: 06/15/20 21:41 06/17/20 10:21 Labs: Abnormal Lab Results - Last 24 Hours (Table) 06/16/20 06/16/20 06/17/20 Range/Units 17:08 20:13 06:11 Potassium (3.5-5.1) mmol/L BUN (9-20) mg/dL Creatinine (0.66-1.25) mg/dL Glucose (74-99) mg/dL POC Glucose (mg/dL) 101 H 161 H 146 H (75-99) mg/dL 06/17/20 06/17/20 Range/Units 10:21 11:53 Potassium 5.4 H (3.5-5.1) mmol/L BUN 57 H (9-20) mg/dL Creatinine 2.21 H (0.66-1.25) mg/dL Glucose 289 H (74-99) mg/dL POC Glucose (mg/dL) 335 H (75-99) mg/dL Microbiology - Last 24 Hours (Table) 06/15/20 22:26 Urine Culture - Preliminary Urine,Catheterized Gram Neg Bacilli Assessment and Plan Plan: Assessment: 1. 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 Renal function stable. 2. Urinary retention status post Fernández catheter placement. 3. 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 4. UTI. Urine culture positive for gram-negative bacilli. 5. Diabetes mellitus. 6. Metabolic acidosis secondary to chronic kidney disease maintained on oral bicarbonate. Better. Plan: Add Flomax. Patient will need to follow-up with urology within 1 week. Maintain oral Lasix. Add Cipro 500 mg once daily. Tight blood sugar control. Follow-up outpatient in 1 week.
--- NOTE | 2020-06-17 13:20 | P.PN ---
Subjective Progress Note Date: 06/17/20 HISTORY OF PRESENT ILLNESS: This is 75-year-old male past medical history significant for dilated cardiomyopathy s/p ICD, nonischemic cardiomyopathy, hypertension, dyslipidemia, diabetes mellitus, CVA 14 years ago, chronic kidney disease with history of being on dialysis but off for many years and ongoing nicotine dependence. Patient was brought into the hospital due to fall at home landing on his buttocks, no head injury or loss of consciousness. He then had 2 more episodes of collapsing landing on his knees while he was walking with his walker. Patient is too weak to hold himself up. He is status post his second ovary vaccine yesterday. He is complaining of body aches. No fever or chills. No nausea or vomiting. No abdominal pain. Patient's vital signs were stable with heart rate in the 60s and 70s, blood pressure 127/73. EKG is a ventricular paced rhythm. Hemoglobin was 12.8, potassium 5.7, BUN 67, creatinine 2.4 which is patient's baseline. Urinalysis was positive for UTI. Troponin 0.035, 0.029, 0.031. Patient denies having any chest pain, shortness of breath at rest, lightheadedness or dizziness. He denies having any palpitations. Patient follows with Dr. Sullivan business process analyst in [place]. 06/17/2020 Patient examined this morning at the bedside. He denies chest pain or pressure. Denies shortness of breath. Echocardiogram is currently pending. Patient's vital signs are stable. Nursing reports patient has not been out of bed yet. PT/OT have been consulted for evaluation. Patient's vital signs are stable. He's afebrile. He is on room air with oxygen saturations greater than 92%. PHYSICAL EXAM: VITAL SIGNS: Reviewed. GENERAL: Well-developed in no acute distress. NECK: Supple. No JVD or thyromegaly LUNGS: Respirations even and unlabored. Lungs essentially clear to auscultation bilaterally. HEART: Regular rate and rhythm. S1 and S2 heard. EXTREMITIES: Normal range of motion. No clubbing or cyanosis. Peripheral pulses intact. No lower extremity edema ASSESSMENT: Recent second Covid 19 vaccine administration Generalized weakness and malaise, suspect secondary to above Abnormal troponins, not indicative of myocardial injury Nonischemic cardiomyopathy with previous AICD implantation Hypertension Hyperlipidemia Diabetes mellitus History of CVA Chronic kidney disease PLAN: Echocardiogram ordered. Await results Continue current cardiac medications Patient is stable for discharge home today from a cardiac perspective Nurse practitioner note has been reviewed by physician. Signing provider agrees with the documented findings, assessment, and plan of care. Objective - Vital Signs Vital signs: Vital Signs Temp 98.1 F 06/17/20 09:45 Pulse 70 06/17/20 09:45 Resp 16 06/17/20 09:45 BP 122/58 06/17/20 09:45 Pulse Ox 96 06/17/20 09:45 Intake & Output 06/16/20 06/17/20 06/17/20 18:59 06:59 18:59 Intake Total 240 360 240 Output Total 900 Balance -660 360 240 Weight 81 kg Intake: Oral 240 360 240 Output: Urine 900 Other: Voiding Method Diaper Diaper Diaper Incontinent Incontinent Incontinent # Voids 5 - Labs CBC & Chem 7: 06/15/20 21:41 06/17/20 10:21 Labs: Abnormal Lab Results - Last 24 Hours (Table) 06/16/20 06/16/20 06/17/20 Range/Units 17:08 20:13 06:11 Potassium (3.5-5.1) mmol/L BUN (9-20) mg/dL Creatinine (0.66-1.25) mg/dL Glucose (74-99) mg/dL POC Glucose (mg/dL) 101 H 161 H 146 H (75-99) mg/dL 06/17/20 06/17/20 Range/Units 10:21 11:53 Potassium 5.4 H (3.5-5.1) mmol/L BUN 57 H (9-20) mg/dL Creatinine 2.21 H (0.66-1.25) mg/dL Glucose 289 H (74-99) mg/dL POC Glucose (mg/dL) 335 H (75-99) mg/dL Microbiology - Last 24 Hours (Table) 06/15/20 22:26 Urine Culture - Preliminary Urine,Catheterized Gram Neg Bacilli
[2020-06-17] MEDS: CIPROFLOXACIN HCL 500 MG TAB PO SCH (14:22)
[2020-06-17] MEDS: TAMSULOSIN 0.4 MG CAP.ER.24H PO SCH (14:22)
[2020-06-17 14:38] LABS: Hemoglobin A1C 7.9 % (4.0-6.0)
[2020-06-17 14:45] VITALS: BMI 24.9
[2020-06-17 17:13] LABS: Glucose,Whole Blood 199 mg/dL (75-99)
[2020-06-17 20:23] LABS: Glucose,Whole Blood 200 mg/dL (75-99)
[2020-06-17] MEDS: INSULIN DETEMIR (LEVEMIR) 100 UNIT/ML SYR SQ SCH (20:54)
[2020-06-17] MEDS: ATORVASTATIN 80 MG TAB PO SCH (20:55)
[2020-06-17] MEDS: DONEPEZIL 5 MG TAB PO SCH (20:55)
[2020-06-18 06:14] LABS: Glucose,Whole Blood 134 mg/dL (75-99)
[2020-06-18] MEDS: carvediloL 3.125 MG TAB PO SCH ×2 (06:25→18:19)
[2020-06-18 07:19] LABS: Calcium 8.7 mg/dL (8.4-10.2); Magnesium 1.9 mg/dL (1.6-2.3); Potassium 4.7 mmol/L (3.5-5.1)
--- NOTE | 2020-06-18 07:29 | ECHOF ---
Referral Reason:LV function MEASUREMENTS -------- HEIGHT: 180.3 cm WEIGHT: 80.7 kg BP: IVSd: 1.4 cm (0.6 - 1.1) LVIDd: 5.5 cm (3.9 - 5.3) LVPWd: 0.9 cm (0.6 - 1.1) IVSs: 1.8 cm LVIDs: 5.0 cm LVPWs: 1.2 cm LAESV Index (A-L): 39.40 ml/m Ao Diam: 3.4 cm (2.0 - 3.7) AV Cusp: 2.3 cm (1.5 - 2.6) LA Diam: 3.1 cm (2.7 - 3.8) MV EXCURSION: 14.577 mm (> 18.000) MV EF SLOPE: 37 mm/s (70 - 150) EPSS: 2.0 cm MV E Mono: 1.31 m/s MV DecT: 302 ms MV A Mono: 0.29 m/s MV E/A Ratio: 4.53 RAP: 5.00 mmHg RVSP: 12.90 mmHg FINDINGS -------- pacemaker This was a technically difficult study with suboptimal views. The left ventricular size is normal. Overall left ventricular systolic function is severely impaire d with, an EF between 20 - 25 %. Increased LAP Grade 2 Diastolic Dysfunction. The RV was not well visualized. LA is moderately dilated 34-39 ml/m2 The right atrial size is normal. Lumason used Aortic valve is trileaflet and is mildly thickened. The mitral valve is normal. The mitral valve leaflets are mildly thickened. Mild mitral regurgita tion is present. The tricuspid valve appears structurally normal. Mild tricuspid regurgitation present. Right vent ricular systolic pressure is normal at < 35 mmHg. There is no pulmonic regurgitation present. The aortic root size is normal. IVC Not well visulized. There is no pericardial effusion. CONCLUSIONS -------- 1. The left ventricular size is normal. 2. Overall left ventricular systolic function is severely impaired with, an EF between 20 - 25 %. 3. Increased LAP Grade 2 Diastolic Dysfunction. 4. LA is moderately dilated 34-39 ml/m2 5. Aortic valve is trileaflet and is mildly thickened. 6. The mitral valve leaflets are mildly thickened. 7. Mild mitral regurgitation is present. 8. Mild tricuspid regurgitation present. 9. There is no pericardial effusion. LEGAL FILE CLERK: Jackie Adkins RDCS
[2020-06-18 07:39] LABS: Glucose,Whole Blood 137 mg/dL (75-99)
[2020-06-18] MEDS: FAMOTIDINE 20 MG TAB PO SCH (08:39)
[2020-06-18] MEDS: APIXABAN 2.5 MG TABLET PO SCH ×2 (08:39→20:43)
[2020-06-18] MEDS: MEMANTINE 10 MG TAB PO SCH (08:39)
[2020-06-18] MEDS: DESVENLAFAXINE SUCCINATE 50 MG TAB.ER.24H PO SCH (08:39)
[2020-06-18] MEDS: RANOLAZINE 500 MG TAB.ER.12H PO SCH ×2 (08:39→20:43)
[2020-06-18] MEDS: CIPROFLOXACIN HCL 500 MG TAB PO SCH (08:39)
[2020-06-18] MEDS: TAMSULOSIN 0.4 MG CAP.ER.24H PO SCH (08:40)
[2020-06-18] MEDS: NICOTINE 21MG/24HR PATCH TRANSDERM SCH (08:40)
[2020-06-18] MEDS: SODIUM BICARBONATE TAB 650 MG TAB PO SCH ×4 (08:40→20:43)
[2020-06-18] MEDS: INSULIN ASPART (NovoLOG) 100 UNIT/ML VIAL SQ SCH ×7 (08:40→20:42)
[2020-06-18 12:07] LABS: Glucose,Whole Blood 209 mg/dL (75-99)
--- NOTE | 2020-06-18 13:35 | P.PN ---
Subjective Patient is seen in follow-up for chronic kidney disease. Renal function stable. Currently having lunch. No chest pain or shortness of breath. No edema. Hemodynamically stable. Vital signs are stable. General: The patient appeared well nourished and normally developed. HEENT: Head exam is unremarkable. Neck is without jugular venous distension. LUNGS: Breath sounds decreased. HEART: Rate and Rhythm are regular. ABDOMEN: Soft, nontender. EXTREMITITES: No edema. Objective - Vital Signs Vital signs: Vital Signs Temp 97.8 F 06/18/20 08:35 Pulse 72 06/18/20 08:35 Resp 18 06/18/20 08:35 BP 137/57 06/18/20 08:35 Pulse Ox 97 06/18/20 08:35 Intake & Output 06/17/20 06/18/20 06/18/20 18:59 06:59 18:59 Intake Total 1676 222 50 Output Total 700 400 Balance 976 -178 50 Weight 81 kg 81 kg Intake: Oral 1676 222 50 Output: Urine 700 400 Other: Voiding Method Diaper Diaper Diaper Incontinent Incontinent Incontinent # Bowel Movements 1 - Labs CBC & Chem 7: 06/15/20 21:41 06/18/20 06:43 Labs: Abnormal Lab Results - Last 24 Hours (Table) 06/15/20 06/17/20 06/17/20 Range/Units 21:41 17:12 20:22 BUN (9-20) mg/dL Creatinine (0.66-1.25) mg/dL Glucose (74-99) mg/dL POC Glucose (mg/dL) 199 H 200 H (75-99) mg/dL Hemoglobin A1c 7.9 H (4.0-6.0) % 06/18/20 06/18/20 06/18/20 Range/Units 06:13 06:43 07:37 BUN 53 H (9-20) mg/dL Creatinine 2.26 H (0.66-1.25) mg/dL Glucose 134 H (74-99) mg/dL POC Glucose (mg/dL) 134 H 137 H (75-99) mg/dL Hemoglobin A1c (4.0-6.0) % 06/18/20 Range/Units 12:06 BUN (9-20) mg/dL Creatinine (0.66-1.25) mg/dL Glucose (74-99) mg/dL POC Glucose (mg/dL) 209 H (75-99) mg/dL Hemoglobin A1c (4.0-6.0) % Microbiology - Last 24 Hours (Table) 06/15/20 22:26 Urine Culture - Final Urine,Catheterized Escherichia coli Assessment and Plan Plan: Assessment: 1. 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 Renal function stable. 2. Urinary retention status post Fernández catheter placement. 3. 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 Resolved. 4. UTI. Urine culture positive for E. coli. 5. Diabetes mellitus. 6. Metabolic acidosis secondary to chronic kidney disease maintained on oral bicarbonate. Better. 7. Chronic systolic CHF with ejection fraction of 20-25%. Plan: Maintain Flomax. Patient will need to follow-up with urology within 1 week. Maintain oral Lasix. Tight blood sugar control. Follow-up outpatient in 1 week.
--- NOTE | 2020-06-18 14:25 | P.PN ---
Subjective Progress Note Date: 06/18/20 HISTORY OF PRESENT ILLNESS: This is 75-year-old male past medical history significant for dilated cardiomyopathy s/p ICD, nonischemic cardiomyopathy, hypertension, dyslipidemia, diabetes mellitus, CVA 14 years ago, chronic kidney disease with history of being on dialysis but off for many years and ongoing nicotine dependence. Patient was brought into the hospital due to fall at home landing on his buttocks, no head injury or loss of consciousness. He then had 2 more episodes of collapsing landing on his knees while he was walking with his walker. Patient is too weak to hold himself up. He is status post his second ovary vaccine yesterday. He is complaining of body aches. No fever or chills. No nausea or vomiting. No abdominal pain. Patient's vital signs were stable with heart rate in the 60s and 70s, blood pressure 127/73. EKG is a ventricular paced rhythm. Hemoglobin was 12.8, potassium 5.7, BUN 67, creatinine 2.4 which is patient's baseline. Urinalysis was positive for UTI. Troponin 0.035, 0.029, 0.031. Patient denies having any chest pain, shortness of breath at rest, lightheadedness or dizziness. He denies having any palpitations. Patient follows with Dr. Sullivan nail galvanizer in [place]. 06/17/2020 Patient examined this morning at the bedside. He denies chest pain or pressure. Denies shortness of breath. Echocardiogram is currently pending. Patient's vital signs are stable. Nursing reports patient has not been out of bed yet. PT/OT have been consulted for evaluation. Patient's vital signs are stable. He's afebrile. He is on room air with oxygen saturations greater than 92%. 06/18/2020 Patient examined this morning at the bedside. Patient denies chest pain or pressure. He denies shortness of breath. Vital signs are stable. Patient is hoping to be discharged home today. Echocardiogram completed revealed ejection fraction 20-25%, mild mitral regurgitation, mild tricuspid regurgitation. PHYSICAL EXAM: VITAL SIGNS: Reviewed. GENERAL: Well-developed in no acute distress. NECK: Supple. No JVD or thyromegaly LUNGS: Respirations even and unlabored. Lungs essentially clear to auscultation bilaterally. HEART: Regular rate and rhythm. S1 and S2 heard. EXTREMITIES: Normal range of motion. No clubbing or cyanosis. Peripheral pulses intact. No lower extremity edema ASSESSMENT: Recent second Covid 19 vaccine administration Generalized weakness and malaise, suspect secondary to above Abnormal troponins, not indicative of myocardial injury Nonischemic cardiomyopathy with previous AICD implantation Hypertension Hyperlipidemia Diabetes mellitus History of CVA Chronic kidney disease PLAN: Continue current cardiac medications Patient is stable for discharge home today from a cardiac perspective Nurse practitioner note has been reviewed by physician. Signing provider agrees with the documented findings, assessment, and plan of care. Objective - Vital Signs Vital signs: Vital Signs Temp 97.8 F 06/18/20 08:35 Pulse 72 06/18/20 08:35 Resp 18 06/18/20 08:35 BP 137/57 06/18/20 08:35 Pulse Ox 97 06/18/20 08:35 Intake & Output 06/17/20 06/18/20 06/18/20 18:59 06:59 18:59 Intake Total 1676 222 50 Output Total 700 400 Balance 976 -178 50 Weight 81 kg 81 kg Intake: Oral 1676 222 50 Output: Urine 700 400 Other: Voiding Method Diaper Diaper Diaper Incontinent Incontinent Incontinent # Bowel Movements 1 - Labs CBC & Chem 7: 06/15/20 21:41 06/18/20 06:43 Labs: Abnormal Lab Results - Last 24 Hours (Table) 06/15/20 06/17/20 06/17/20 Range/Units 21:41 17:12 20:22 BUN (9-20) mg/dL Creatinine (0.66-1.25) mg/dL Glucose (74-99) mg/dL POC Glucose (mg/dL) 199 H 200 H (75-99) mg/dL Hemoglobin A1c 7.9 H (4.0-6.0) % 06/18/20 06/18/20 06/18/20 Range/Units 06:13 06:43 07:37 BUN 53 H (9-20) mg/dL Creatinine 2.26 H (0.66-1.25) mg/dL Glucose 134 H (74-99) mg/dL POC Glucose (mg/dL) 134 H 137 H (75-99) mg/dL Hemoglobin A1c (4.0-6.0) % 06/18/20 Range/Units 12:06 BUN (9-20) mg/dL Creatinine (0.66-1.25) mg/dL Glucose (74-99) mg/dL POC Glucose (mg/dL) 209 H (75-99) mg/dL Hemoglobin A1c (4.0-6.0) % Microbiology - Last 24 Hours (Table) 06/15/20 22:26 Urine Culture - Final Urine,Catheterized Escherichia coli
--- NOTE | 2020-06-18 15:03 | P.DS ---
Providers Date of admission: 06/15/20 23:49 Expected date of discharge: 06/18/20 Attending physician: Ronna Novak Consults: 06/15/20 23:54 Consult Physician Urgent Consulting Provider: [facility] Consult Reason/Comments: Elevated troponin, weakness Do you want consulting provider notified?: Yes Consult Physician Urgent Consulting Provider: William Dunbar Consult Reason/Comments: Elevated creatinine, hyperkalemia Do you want consulting provider notified?: Yes Primary care physician: Aria Pennington Hospital Course: Final Diagnosis -Generalized weak weakness, fall, fever: This happened after he received a second dose of Covid 19 vaccine. Generalized weakness and fever unknown effects of Covid 19 vaccine. - mildly elevated troponin secondary to chronic kidney disease -Hyperkalemia secondary to chronic kidney disease -Atrial fibrillation, nonischemic cardiomyopathy, patient is on Eliquis which will be continued patient presently has an AICD. 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 -Type 2 diabetes mellitus resumed on home regimen -Obstructive sleep apnea -Nonischemic cardiomyopathy chronic systolic dysfunction patient doesn't have any acute exacerbation at this time -Chronic kidney disease stage IV secondary to diabetic nephropathy. Discharge disposition Patient is being discharged in a stable condition with guarded prognosis to home and will continue with home care. Patient will follow-up with Dr. Pennington upon discharge. Patient also instructed to follow-up with urology Dr. Roberts in one week. Total time taken is greater than 35 minutes. Hospital course Patient is a 75-year-old male came in after a fall generalized weakness. Patient felt extremely weak and tired and fatigued and had a fever yesterday after receiving second dose of cold 19 vaccine. Patient also found to have mildly elevated troponin which later normalized. Cardiology was consulted and patient was subsequently admitted. Patient's fever resolved patient does not have any evidence of a sepsis at this time. Patient does have chronic kidney disease with serum creatinine around 2. Patient denied any chest pain. feels and looks much better today. He does have history of atrial fibrillation on ischemic cardiomyopathy and patient has an AICD in place patient also had a left carotid endarterectomy in the past. 06/17/2020 Patient was discharged yesterday unsure why he ended up staying in the hospital although there is a pending echocardiogram. Patient will be evaluated by physical therapy occupational therapy after that patient probably can be discharged. Patient has chronic kidney disease from diabetic nephropathy and patient's symptoms are expected after second dose Covid 19 vaccine. 06/18/2020 Patient has been working with physical therapy and was able to ambulate with a walker more than 60 feet with minimal assist. Patient was not approved to go to [facility] for continued PT/OT therapy. Patient will be going home with family and will continue with home care in the outpatient setting. Patient was having episodes of retention requiring indwelling Fuentes catheter and will be discharged with the catheter and will follow-up with urology outpatient this week. Patient will also be instructed to follow-up with nephrology in the outpatient setting. Currently patient has no reports of chest pain, shortness of breath, or palpitations. Patient is afebrile. No reports of nausea or vomiting and patient is tolerating diet. Patient to continue with renal diet. Patient will be discharged home today with family. On exam vital signs are stable. Cardio S1, S2 are present. Respiratory system shows diminished breath sounds bilaterally with no wheezing or rhonchi noted. Abdomen is soft and nontender. Nervous system shows no focal deficits. Please refer to medication reconciliation sheet for a list of medications. Patient Condition at Discharge: Stable Plan - Discharge Summary New Discharge Prescriptions: Continue Famotidine [Pepcid] 20 mg PO DAILY INSULIN ASPART (NovoLOG) [NovoLOG (formulary)] See Protocol SQ AC-TID Donepezil [Aricept] 5 mg PO HS #30 tab Furosemide [Lasix] 40 mg PO DAILY PRN PRN Reason: Edema Memantine [Namenda] 10 mg PO DAILY Cholecalciferol [Vitamin D3 (25 Mcg = 1000 Iu)] 1,000 unit PO DAILY Apixaban [Eliquis] 2.5 mg PO BID #60 tablet INSULIN ASPART (NovoLOG) [NovoLOG (formulary)] 6 unit SQ AC-TID vial Insulin Glargine,Hum.rec.anlog [Lantus Solostar] 28 unit SQ HS Carvedilol [Coreg] 3.125 mg PO BID Atorvastatin Calcium [Lipitor] 80 mg PO HS Ranolazine [Ranolazine ER] 1,000 mg PO BID Desvenlafaxine [Pristiq ER] 100 mg PO DAILY Discharge Medication List Famotidine [Pepcid] 20 mg PO DAILY 01/16/18 [History] INSULIN ASPART (NovoLOG) [NovoLOG (formulary)] See Protocol SQ AC-TID 01/16/18 [History] Donepezil [Aricept] 5 mg PO HS #30 tab 02/03/18 [Rx] Furosemide [Lasix] 40 mg PO DAILY PRN 11/07/18 [History] Memantine [Namenda] 10 mg PO DAILY 11/07/18 [History] Cholecalciferol [Vitamin D3 (25 Mcg = 1000 Iu)] 1,000 unit PO DAILY 12/30/18 [History] Apixaban [Eliquis] 2.5 mg PO BID #60 tablet 01/11/19 [Rx] INSULIN ASPART (NovoLOG) [NovoLOG (formulary)] 6 unit SQ AC-TID vial 01/12/19 [Rx] Atorvastatin Calcium [Lipitor] 80 mg PO HS 06/16/20 [History] Carvedilol [Coreg] 3.125 mg PO BID 06/16/20 [History] Desvenlafaxine [Pristiq ER] 100 mg PO DAILY 06/16/20 [History] Insulin Glargine,Hum.rec.anlog [Lantus Solostar] 28 unit SQ HS 06/16/20 [History] Ranolazine [Ranolazine ER] 1,000 mg PO BID 06/16/20 [History] Follow up Appointment(s)/Referral(s): [facility], [NON-STAFF] - Jeff Roberts MD [STAFF PHYSICIAN] - 1 Week (For fuentes removal related to retention.) Aria Pennington DO [Primary Care Provider] - 3 Days Patient Instructions/Handouts: Weakness (DC) Activity/Diet/Wound Care/Special Instructions: Cardiac, diabetic and renal diet Discharge Disposition: HOME WITH HOME HEALTH SERVICES
[2020-06-18 17:09] LABS: Glucose,Whole Blood 236 mg/dL (75-99)
[2020-06-18 20:27] LABS: Glucose,Whole Blood 284 mg/dL (75-99)
[2020-06-18] MEDS: INSULIN DETEMIR (LEVEMIR) 100 UNIT/ML SYR SQ SCH (20:42)
[2020-06-18] MEDS: DONEPEZIL 5 MG TAB PO SCH (20:43)
[2020-06-18] MEDS: ATORVASTATIN 80 MG TAB PO SCH (20:43)
[2020-06-19 00:19] VITALS: RESP 16
[2020-06-19 03:29] VITALS: TEMP 97.6
[2020-06-19] MEDS: carvediloL 3.125 MG TAB PO SCH (06:24)
[2020-06-19] MEDS: RANOLAZINE 500 MG TAB.ER.12H PO SCH (09:06)
[2020-06-19] MEDS: DESVENLAFAXINE SUCCINATE 50 MG TAB.ER.24H PO SCH (09:06)
[2020-06-19] MEDS: FAMOTIDINE 20 MG TAB PO SCH (09:06)
[2020-06-19] MEDS: NICOTINE 21MG/24HR PATCH TRANSDERM SCH (09:06)
[2020-06-19] MEDS: INSULIN ASPART (NovoLOG) 100 UNIT/ML VIAL SQ SCH ×4 (09:06→12:01)
[2020-06-19] MEDS: SODIUM BICARBONATE TAB 650 MG TAB PO SCH ×2 (09:06→12:06)
[2020-06-19] MEDS: MEMANTINE 10 MG TAB PO SCH (09:06)
[2020-06-19] MEDS: APIXABAN 2.5 MG TABLET PO SCH (09:06)
[2020-06-19] MEDS: TAMSULOSIN 0.4 MG CAP.ER.24H PO SCH (09:06)
--- NOTE | 2020-06-19 10:49 | P.PN ---
Subjective Patient is seen in follow-up for chronic kidney disease. Renal function stable. Feels tired. No chest pain or shortness of breath. No edema. Hemodynamically stable. Vital signs are stable. General: The patient appeared well nourished and normally developed. HEENT: Head exam is unremarkable. Neck is without jugular venous distension. LUNGS: Breath sounds decreased. HEART: Rate and Rhythm are regular. ABDOMEN: Soft, nontender. EXTREMITITES: No edema. Objective - Vital Signs Vital signs: Vital Signs Temp 97.6 F 06/19/20 03:20 Pulse 80 06/19/20 08:00 Resp 16 06/19/20 08:00 BP 152/88 06/19/20 08:00 Pulse Ox 97 06/19/20 08:00 Intake & Output 06/18/20 06/19/20 06/19/20 18:59 06:59 18:59 Intake Total 286 Output Total 751 1400 Balance -465 -1400 Weight 81.4 kg Intake: Oral 286 Output: Urine 750 1400 Stool 1 Other: Voiding Method Diaper Diaper Incontinent Incontinent - Labs CBC & Chem 7: 06/15/20 21:41 06/18/20 06:43 Labs: Abnormal Lab Results - Last 24 Hours (Table) 06/18/20 06/18/20 06/18/20 Range/Units 12:06 17:08 20:26 POC Glucose (mg/dL) 209 H 236 H 284 H (75-99) mg/dL Microbiology - Last 24 Hours (Table) 06/15/20 22:26 Urine Culture - Final Urine,Catheterized Escherichia coli Assessment and Plan Plan: Assessment: 1. 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 Renal function stable. Creatinine 2.26 as of yesterday. 2. Urinary retention status post Fernández catheter placement. 3. 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 Resolved. 4. UTI. Urine culture positive for E. coli. 5. Diabetes mellitus. 6. Metabolic acidosis secondary to chronic kidney disease maintained on oral bicarbonate. Better. 7. Chronic systolic CHF with ejection fraction of 20-25%. Plan: Maintain Flomax. Patient will need to follow-up with urology within 1 week. Maintain oral Lasix. Tight blood sugar control. Follow-up outpatient in 1 week.
[2020-06-19 11:49] LABS: Glucose,Whole Blood 48 mg/dL (75-99)
[2020-06-19 11:58] LABS: Glucose,Whole Blood 46 mg/dL (75-99)
[2020-06-19 12:09] VITALS: BP 126/61; PULSE 70
[2020-06-19 12:09] LABS: Glucose,Whole Blood 49 mg/dL (75-99)
[2020-06-19] MEDS ORDERED: DEXTROSE 4 GM CHEWABLE PO STA (12:19)
[2020-06-19 12:26] LABS: Glucose,Whole Blood 61 mg/dL (75-99)
[2020-06-19 12:33] LABS: Glucose,Whole Blood 92 mg/dL (75-99)
--- NOTE | 2020-06-19 15:41 | P.DS ---
Providers Date of admission: 06/15/20 23:49 Expected date of discharge: 06/19/20 Attending physician: Ronna Novak Consults: 06/15/20 23:54 Consult Physician Urgent Consulting Provider: William Dunbar Consult Reason/Comments: Elevated creatinine, hyperkalemia Do you want consulting provider notified?: Yes Primary care physician: Aria Pennington Hospital Course: Final Diagnosis -Generalized weak weakness, fall, fever: This happened after he received a second dose of Covid 19 vaccine. Generalized weakness and fever unknown effects of Covid 19 vaccine. - mildly elevated troponin secondary to chronic kidney disease -Hyperkalemia secondary to chronic kidney disease -Atrial fibrillation, nonischemic cardiomyopathy, patient is on Eliquis which will be continued patient presently has an AICD. 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 -Type 2 diabetes mellitus resumed on home regimen -Obstructive sleep apnea -Nonischemic cardiomyopathy chronic systolic dysfunction patient doesn't have any acute exacerbation at this time -Chronic kidney disease stage IV secondary to diabetic nephropathy. Discharge disposition Patient is being discharged in a stable condition with guarded prognosis to home and will continue with home care. Patient will follow-up with Dr. Pennington upon discharge. Patient also instructed to follow-up with urology Dr. Roberts in one week. Total time taken is greater than 35 minutes. Hospital course Patient is a 75-year-old male came in after a fall generalized weakness. Patient felt extremely weak and tired and fatigued and had a fever yesterday after receiving second dose of cold 19 vaccine. Patient also found to have mildly elevated troponin which later normalized. Cardiology was consulted and patient was subsequently admitted. Patient's fever resolved patient does not have any evidence of a sepsis at this time. Patient does have chronic kidney disease with serum creatinine around 2. Patient denied any chest pain. feels and looks much better today. He does have history of atrial fibrillation on ischemic cardiomyopathy and patient has an AICD in place patient also had a left carotid endarterectomy in the past. 06/17/2020 Patient was discharged yesterday unsure why he ended up staying in the hospital although there is a pending echocardiogram. Patient will be evaluated by physical therapy occupational therapy after that patient probably can be discharged. Patient has chronic kidney disease from diabetic nephropathy and patient's symptoms are expected after second dose Covid 19 vaccine. 06/18/2020 Patient has been working with physical therapy and was able to ambulate with a walker more than 60 feet with minimal assist. Patient was not approved to go to [facility] for continued PT/OT therapy. Patient will be going home with family and will continue with home care in the outpatient setting. Patient was having episodes of retention requiring indwelling Fuentes catheter and will be discharged with the catheter and will follow-up with urology outpatient this week. Patient will also be instructed to follow-up with nephrology in the outpatient setting. Currently patient has no reports of chest pain, shortness of breath, or palpitations. Patient is afebrile. No reports of nausea or vomiting and patient is tolerating diet. Patient to continue with renal diet. Patient will be discharged home today with family. 06/19/2020 Patient is seen and evaluated this morning states he is feeling tired and has not been up and moving. Physical therapy currently working with him although he is not willing to at this time. Blood sugar was found to be 46 and was given some juice and encouraged to eat with a repeat Accu-Chek of 92. Dextrose chew was also given. Patient was then given lunch. Patient's refused discharge yesterday stating she was not ready to take him home and was quite concerned with the indwelling Fuentes catheter. Patient continued to have some retention re quiring Fuentes catheter and nephrology following recommending to continue with the catheter upon discharge and follow-up with urology within the week. Family will be taking the patient home today. Guarded prognosis. On exam vital signs are stable. Cardio S1, S2 are present. Respiratory system shows diminished breath sounds bilaterally with no wheezing or rhonchi noted. Abdomen is soft and nontender. Nervous system shows no focal deficits. Please refer to medication reconciliation sheet for a list of medications. Patient Condition at Discharge: Stable Plan - Discharge Summary New Discharge Prescriptions: New Ciprofloxacin HCl [Cipro] 500 mg PO BID 3 Days #6 tab Continue Famotidine [Pepcid] 20 mg PO DAILY INSULIN ASPART (NovoLOG) [NovoLOG (formulary)] See Protocol SQ AC-TID Donepezil [Aricept] 5 mg PO HS #30 tab Furosemide [Lasix] 40 mg PO DAILY PRN PRN Reason: Edema Memantine [Namenda] 10 mg PO DAILY Cholecalciferol [Vitamin D3 (25 Mcg = 1000 Iu)] 1,000 unit PO DAILY Apixaban [Eliquis] 2.5 mg PO BID #60 tablet INSULIN ASPART (NovoLOG) [NovoLOG (formulary)] 6 unit SQ AC-TID vial Insulin Glargine,Hum.rec.anlog [Lantus Solostar] 28 unit SQ HS Carvedilol [Coreg] 3.125 mg PO BID Atorvastatin Calcium [Lipitor] 80 mg PO HS Ranolazine [Ranolazine ER] 1,000 mg PO BID Desvenlafaxine [Pristiq ER] 100 mg PO DAILY Discharge Medication List Famotidine [Pepcid] 20 mg PO DAILY 01/16/18 [History] INSULIN ASPART (NovoLOG) [NovoLOG (formulary)] See Protocol SQ AC-TID 01/16/18 [History] Donepezil [Aricept] 5 mg PO HS #30 tab 02/03/18 [Rx] Furosemide [Lasix] 40 mg PO DAILY PRN 11/07/18 [History] Memantine [Namenda] 10 mg PO DAILY 11/07/18 [History] Cholecalciferol [Vitamin D3 (25 Mcg = 1000 Iu)] 1,000 unit PO DAILY 12/30/18 [History] Apixaban [Eliquis] 2.5 mg PO BID #60 tablet 01/11/19 [Rx] INSULIN ASPART (NovoLOG) [NovoLOG (formulary)] 6 unit SQ AC-TID vial 01/12/19 [Rx] Atorvastatin Calcium [Lipitor] 80 mg PO HS 06/16/20 [History] Carvedilol [Coreg] 3.125 mg PO BID 06/16/20 [History] Desvenlafaxine [Pristiq ER] 100 mg PO DAILY 06/16/20 [History] Insulin Glargine,Hum.rec.anlog [Lantus Solostar] 28 unit SQ HS 06/16/20 [History] Ranolazine [Ranolazine ER] 1,000 mg PO BID 06/16/20 [History] Ciprofloxacin HCl [Cipro] 500 mg PO BID 3 Days #6 tab 06/19/20 [Rx] Follow up Appointment(s)/Referral(s): [facility], [NON-STAFF] - Jeff Roberts MD [STAFF PHYSICIAN] - 07/01/20 9:20 am (For fuentes removal related to retention.) Aria Pennington DO [Primary Care Provider] - 3 Days Raphael Langston DO [STAFF PHYSICIAN] - 1 Week Ambulatory/Diagnostic Orders: Basic Metabolic Panel [LAB.AMB] Time Frame: 2 Days, Location: None Selected Patient Instructions/Handouts: Weakness (DC) Activity/Diet/Wound Care/Special Instructions: Cardiac, diabetic and renal diet Activity Limited until follow-up Primary care provider upon discharge Continue with indwelling Fuentes catheter Continue with antibiotics for the next 3 days Josh to monitor blood sugars before meals and at bedtime and keep a diary for primary care follow-up. Encourage oral intake and follow a renal diet, consistent carbohydrate diet Follow-up with urology and nephrology outpatient in one week Discharge Disposition: HOME WITH HOME HEALTH SERVICES
[2020-06-19 15:44] LABS: Glucose,Whole Blood 252 mg/dL (75-99)
== END 2020-06-19 16:14 | disposition home health service (06) ==
LOC: EC 19:30 → 3SCARD 23:49
PROVIDERS: ADMIT Hospitalist; ATTEND Hospitalist
DX: R53.1 Weakness (principal); R50.9 Fever, unspecified; E87.5 Hyperkalemia; E87.2 Acidosis; R60.9 Edema, unspecified; W19.XXXA Unspecified fall, initial encounter; R53.83 Other fatigue; R52 Pain, unspecified; R53.81 Other malaise; N18.4 Chronic kidney disease, stage 4 (severe); I25.5 Ischemic cardiomyopathy; I48.91 Unspecified atrial fibrillation; Z95.810 Presence of automatic (implantable) cardiac defibrillator; E11.22 Type 2 diabetes mellitus with diabetic chronic kidney disease; Z79.01 Long term (current) use of anticoagulants; E11.51 Type 2 diabetes mellitus with diabetic peripheral angiopathy without gangrene; G47.33 Obstructive sleep apnea (adult) (pediatric); N25.89 Other disorders resulting from impaired renal tubular function; I42.0 Dilated cardiomyopathy; R33.9 Retention of urine, unspecified; E78.5 Hyperlipidemia, unspecified; F03.90 Unspecified dementia, unspecified severity, without behavioral disturbance, psychotic disturbance, mood disturbance, and anxiety; R32 Unspecified urinary incontinence; N39.0 Urinary tract infection, site not specified; R29.6 Repeated falls; B96.20 Unspecified Escherichia coli [E. coli] as the cause of diseases classified elsewhere; I13.0 Hypertensive heart and chronic kidney disease with heart failure and stage 1 through stage 4 chronic kidney disease, or unspecified chronic kidney disease; I50.22 Chronic systolic (congestive) heart failure; I25.2 Old myocardial infarction; J44.9 Chronic obstructive pulmonary disease, unspecified; Z86.73 Personal history of transient ischemic attack (TIA), and cerebral infarction without residual deficits; K21.9 Gastro-esophageal reflux disease without esophagitis; Z99.89 Dependence on other enabling machines and devices; Z87.440 Personal history of urinary (tract) infections; F41.9 Anxiety disorder, unspecified; F32.9 Major depressive disorder, single episode, unspecified; F17.210 Nicotine dependence, cigarettes, uncomplicated; Z79.4 Long term (current) use of insulin; Z79.82 Long term (current) use of aspirin; Z79.899 Other long term (current) drug therapy; Z88.5 Allergy status to narcotic agent; Y92.009 Unspecified place in unspecified non-institutional (private) residence as the place of occurrence of the external cause; Z20.822 Contact with and (suspected) exposure to COVID-19; Z80.9 Family history of malignant neoplasm, unspecified
CPT/HCPCS: 51702; 96365; 99285; 36415; 94640; 93005; 97116 ×2; 97110; 97162; 97535; 97166; 80053; 80048 ×2; 83735 ×2; 84132; 84484 ×2; 85025; 81001; 87086; 87077; 87186; 83036; 87635; 72100; 72170; 71046; 70450; G0378 ×4; C8929; S4990 ×4; J0610; Q9950; 93306

== ENCOUNTER 2020-08-14 06:23 | Inpatient (IN) | payer MEDICARE ==
[2020-08-14 06:59] LABS: Basophils % (A) 1 %; Eosinophils # (A) 0.2 k/uL (0-0.7); Eosinophils % (A) 3 %; HCT 33.4 % (39.0-53.0); HGB 11.1 gm/dL (13.0-17.5); Lymphocytes # (A) 1.2 k/uL (1.0-4.8); Lymphocytes % (A) 17 %; MCH 32.4 pg (25.0-35.0); MCHC 33.3 g/dL (31.0-37.0); MCV 97.2 fL (80.0-100.0); Mean Platelet Volume 6.9; Monocytes # (A) 0.3 k/uL (0-1.0); Monocytes % (A) 5 %; Neutrophils % (A) 73 %; Platelet Count 198 k/uL (150-450); RBC 3.44 m/uL (4.30-5.90); RDW 14.1 % (11.5-15.5); WBC 6.8 k/uL (3.8-10.6)
[2020-08-14] MEDS ORDERED: DIPH,PERTUS(ACELL)TETVAC-LF 0.5 ML VIAL IM ONE (07:01)
[2020-08-14 07:22] LABS: Albumin 3.4 g/dL (3.5-5.0); Calcium 8.7 mg/dL (8.4-10.2); Magnesium 3.2 mg/dL (1.6-2.3); Total Bilirubin 0.4 mg/dL (0.2-1.3); Total Protein 6.4 g/dL (6.3-8.2)
--- NOTE | 2020-08-14 07:23 | CT ---
EXAMINATION TYPE: CT brain julee barajas con DATE OF EXAM: 08/14/2020 COMPARISON: 06/15/2020 HISTORY: Fall CT DLP: 1344.[address] of the brain was performed. The ventricles, basal cisterns and sulci overlying the cerebral convexities demonstrate mild enlargem ent. Large area of remote insult right posterior cerebral artery territory. There is no evidence for intracranial hemorrhage or sulcal effacement. There is decreased attenuatio n about the periventricular white matter and deep white matter of both cerebral hemispheres, compatib le with chronic small vessel ischemia. No mass effects are seen. If symptoms persist consider MRI. Osseous calvarium is intact. IMPRESSION: 1. Age related atrophic and chronic small vessel ischemic change without acute intracranial process seen at this time. CT Cervical Spine: Unenhanced CT of the cervical spine was performed with bone and soft tissue window settings submitted . Coronal and sagittal reconstruction is obtained. There is normal alignment and prevertebral soft tissues. No evidence for acute cervical fracture . Moderate to severe Scattered degenerative disc disease and spondylosis. Biapical scarring. IMPRESSION: 1. No evidence for acute fracture or subluxation of the cervical spine.
[2020-08-14 07:42] LABS: Potassium 6.3 mmol/L (3.5-5.1)
[2020-08-14] MEDS ORDERED: FUROSEMIDE 10 MG/ML 2 ML VIAL IV ONE (07:49)
[2020-08-14] MEDS ORDERED: SODIUM CHLORIDE 0.9% 500 ML 500 ML IV ONE (07:49)
[2020-08-14] MEDS ORDERED: SODIUM POLYSTYRENE SULFONATE 15 GM/60 ML BOTTLE PO ONE (07:49)
[2020-08-14] MEDS: SODIUM CHLORIDE 0.9% 1,000 ML IV SCH ×2 (08:41→20:43)
--- NOTE | 2020-08-14 08:48 | XR ---
EXAMINATION TYPE: XR chest 2V DATE OF EXAM: 08/14/2020 COMPARISON: 06/15/2020 HISTORY: Shortness of breath TECHNIQUE: Frontal and lateral views of the chest are obtained. FINDINGS: Scattered senescent parenchymal changes noted. Hyperinflation compatible with COPD. Increased basilar markings may reflect subsegmental atelectasis or developing infiltrates. No evidenc e for pneumothorax. Heart size is stable. Mediastinal structures are stable and grossly unremarkable. No evidence for hilar prominence. Degenerative changes dorsal spine. IMPRESSION: 1. Increased basilar markings may reflect subsegmental atelectasis or developing infiltrates. No evid ence for pneumothorax.
--- NOTE | 2020-08-14 08:49 | XR ---
EXAMINATION TYPE: XR pelvis AP view DATE OF EXAM: 08/14/2020 CLINICAL HISTORY: pain TECHNIQUE: Single view the pelvis is submitted. FINDINGS: No evidence for fracture, dislocation or bony lesion. Joint spaces are mildly narrowed. SI joints appear symmetric. IMPRESSION: 1. No acute fracture or dislocation seen. ICD 10 NO FRACTURE, INITIAL EVALUATION
--- NOTE | 2020-08-14 08:51 | XR ---
EXAMINATION TYPE: XR lumbar spine 2 or 3V DATE OF EXAM: 08/14/2020 CLINICAL HISTORY: pain TECHNIQUE: Three views of the lumbar spine are submitted. COMPARISON: None. FINDINGS: There are 5 lumbar type vertebral bodies identified. The lumbar spine shows satisfactory alignment w ithout evidence of acute fracture or dislocation. Vertebral body heights are within normal limits. Mild degenerative narrowing L4-5 and L5-S1 with ventral spondylosis. Grade 1 anterolisthesis of L4 an d L5 measuring 3 mm in greatest 1 retrolisthesis of L5 on S1 measuring 2.5 mm. Suggestion of spondylo lysis at L5. Severe facet joint arthropathy. The overlying soft tissue appears unremarkable. IMPRESSION: Degenerative changes and listhesis as discussed above.
--- NOTE | 2020-08-14 08:52 | XR ---
EXAMINATION TYPE: XR thoracic spine complete DATE OF EXAM: 08/14/2020 CLINICAL HISTORY: pain TECHNIQUE: Frontal, lateral, and swimmer's view of thoracic spine are obtained. COMPARISON: None. FINDINGS: Thoracic spine show satisfactory alignment without evidence of acute fracture or dislocatio n. Vertebral body heights are preserved. Moderate multilevel degenerative disc space narrowing and s pondylosis. Visualized ribs are unremarkable. IMPRESSION: No acute fracture or dislocation is seen in the thoracic spine. ICD 10 NO FRACTURE, INIT IAL EVALUATION
[2020-08-14] MEDS ORDERED: NALOXONE 0.4 MG/ML 1 ML VIAL IV PRN (08:57)
--- NOTE | 2020-08-14 08:57 | ED ---
Fall HPI - General Chief Complaint: Fall Stated Complaint: Fall Time Seen by Provider: 08/14/20 06:24 Source: EMS Mode of arrival: EMS - History of Present Illness Initial Comments: 75-year-old male to chronically diseased type 2 diabetes, hypertension, CHF, dementia presents emergency department today for chief complaint of fall patient was using his walker to go to the restroom today when he lost his balance falling backwards striking his head. Patient is on eliquis. Patient denies loss of consciousness he states he just hurts all over but does not think anything is broken. Patient denies any nausea vomiting he admits to slight headache. Denies visual changes or localized weakness. Overall patient is a poor historian and doesn't like to answer many questions Y states that this is his baseline she is bedside and confirms history provided. Patient denies a chest pain shortness of breath like swelling. On arrival patient does not appear in distress. - Related Data Home Medications Medication Instructions Recorded Confirmed Famotidine [Pepcid] 20 mg PO DAILY 01/16/18 08/14/20 INSULIN ASPART (NovoLOG) [NovoLOG See Protocol SQ AC-TID 01/16/18 08/14/20 (formulary)] Furosemide [Lasix] 40 mg PO Q48H 11/07/18 08/14/20 Memantine [Namenda] 10 mg PO DAILY 11/07/18 08/14/20 Cholecalciferol [Vitamin D3 (25 1,000 unit PO DAILY 12/30/18 08/14/20 Mcg = 1000 Iu)] Atorvastatin Calcium [Lipitor] 80 mg PO HS 06/16/20 08/14/20 Carvedilol [Coreg] 3.125 mg PO BID 06/16/20 08/14/20 Desvenlafaxine [Pristiq ER] 100 mg PO DAILY 06/16/20 08/14/20 Insulin Glargine,Hum.rec.anlog 35 unit SQ HS 06/16/20 08/14/20 [Lantus Solostar] Ranolazine [Ranolazine ER] 1,000 mg PO BID 06/16/20 08/14/20 Aspirin EC [Ecotrin Low Dose] 81 mg PO DAILY 08/14/20 08/14/20 Sennosides [Senna] 8.6 mg PO BID PRN 08/14/20 08/14/20 calcitrioL [Calcitriol] 0.25 mcg PO TH 08/14/20 08/14/20 Previous Rx's Medication Instructions Recorded Donepezil [Aricept] 5 mg PO HS #30 tab 02/03/18 Apixaban [Eliquis] 2.5 mg PO BID #60 tablet 01/11/19 INSULIN ASPART (NovoLOG) [NovoLOG 6 unit SQ AC-TID vial 01/12/19 (formulary)] Allergies Allergy/AdvReac Type Severity Reaction Status Date / Time codeine Allergy Unknown Verified 08/14/20 06:36 [From Tylenol-Codeine #3] Review of Systems ROS Statement: Those systems with pertinent positive or pertinent negative responses have been documented in the HPI. ROS Other: All systems not noted in ROS Statement are negative. Past Medical History Past Medical History: Atrial Fibrillation, Heart Failure, COPD, CVA/TIA, Dementia, Diabetes Mellitus, GERD/Reflux, Hyperlipidemia, Hypertension, Myocardial Infarction ([place]), Renal Disease, Sleep Apnea/CPAP/BIPAP, Vascular Disorder Additional Past Medical History / Comment(s): IDDM type II, 2006 CVA-more sleepy since, seizures ruled out by [facility], DION-did not tolerate mask, chronic kidney disease stage III, peripheral vascular disease, previous history of UTI with E. 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 Mother Family Medical History: Cancer Additional Family Medical History / Comment(s): Pt/spouse do not recall type of cancer. Brother(s) Family Medical History: Cancer General Exam - General Exam Comments Initial Comments: General: The patient is awake and alert, in no distress Eye: +3 mm pupils are equal, round and reactive to light, extra-ocular movements are intact. No nystagmus. There is normal conjunctiva bilaterally. No signs of icterus. Ears, nose, mouth and throat: There are moist mucous membranes and no oral lesions. No raccoon no Rodriges sign Neck: The neck is supple, there is no tenderness or JVD. Cardiovascular: There is a regular rate and rhythm. No murmur, rub or gallop is appreciated. Respiratory: Lungs are clear to auscultation, respirations are non-labored, breath sounds are equal. No wheezes, stridor, rales, or rhonchi. Gastrointestinal: On inspection of the abdomen there is a large ventral hernia that is soft reducible and nontender. Soft, non-distended, non-tender abdomen without masses or organomegaly noted. There is no rebound or guarding present. No CVA tenderness. Bowel sounds are unremarkable. Musculoskeletal: Normal ROM, no tenderness. Strength 5/5. Sensation intact. Radial pulses equal bilaterally 2+. Neurological: A&O x 3. CN II-XII intact grossly, There are no obvious motor or sensory deficits. Coordination appears grossly intact. Speech is normal. Skin: Skin is warm and dry and no rashes. Hematoma with abrasion of the occiptal region. Psychiatric: Cooperative, appropriate mood & affect, normal judgment. Limitations: altered mental status, physical limitation Course Vital Signs 08/14/20 08/14/20 08/14/20 06:29 08:00 09:00 Temperature 97.7 F Pulse Rate 70 71 88 Respiratory 16 16 16 Rate Blood Pressure 127/71 96/75 96/75 O2 Sat by Pulse 97 97 100 Oximetry Procedures - Telephone Protocol (Time Out) Nurse: Sera Lopez Medical Decision Making - Medical Decision Making Patient's lab appear most consistent with previous values including chronic kidney disease, anemia. Pt however is found to be hyperkalemic. No EKG Changes. Given low dose lasix and kyaxelate. Patient will be admitted on telemetry for gentle fluids/electrolyte correction. Pt evaluation for fall (-). CT brain c- spine without acute abnormality. Dr Wadsworth is agreeable to care plan and adm ission. Dr Ahumada accepted admission. Ventricular rate 70 bpm, DE interval 80 8L seconds, QRS or should to a 6 month seconds, QT/QTc 526/516 ms.-- A total of 30 minutes of critical caretime were spent in regards to electrolyte abnormality requiring treatment with Lasix and Kayexalate;time includes bedside time time spent ordering and reviewing diagnostic studies and EKGs discussing care plan with my attending provider, admitting provider as well as the patient's family, documenting the record. - Lab Data Result diagrams: 08/14/20 06:41 08/14/20 06:41 Lab Results 08/14/20 08/14/20 08/14/20 Range/Units 06:41 06:41 06:41 WBC 6.8 (3.8-10.6) k/uL RBC 3.44 L (4.30-5.90) m/uL Hgb 11.1 L (13.0-17.5) gm/dL Hct 33.4 L (39.0-53.0) % MCV 97.2 (80.0-100.0) fL MCH 32.4 (25.0-35.0) pg MCHC 33.3 (31.0-37.0) g/dL RDW 14.1 (11.5-15.5) % Plt Count 198 (150-450) k/uL MPV 6.9 Neutrophils % 73 % Lymphocytes % 17 % Monocytes % 5 % Eosinophils % 3 % Basophils % 1 % Neutrophils # 5.0 (1.3-7.7) k/uL Lymphocytes # 1.2 (1.0-4.8) k/uL Monocytes # 0.3 (0-1.0) k/uL Eosinophils # 0.2 (0-0.7) k/uL Basophils # 0.0 (0-0.2) k/uL Sodium 138 (137-145) mmol/L Potassium 6.3 H* (3.5-5.1) mmol/L Chloride 104 (98-107) mmol/L Carbon Dioxide 29 (22-30) mmol/L Anion Gap 5 mmol/L BUN 61 H (9-20) mg/dL Creatinine 2.32 H (0.66-1.25) mg/dL Est GFR (CKD-EPI)AfAm 30 (>60 ml/min/1.73 sqM) Est GFR (CKD-EPI)NonAf 26 (>60 ml/min/1.73 sqM) Glucose 214 H (74-99) mg/dL Calcium 8.7 (8.4-10.2) mg/dL Magnesium 3.2 H (1.6-2.3) mg/dL Total Bilirubin 0.4 (0.2-1.3) mg/dL AST 24 (17-59) U/L ALT 13 (4-49) U/L Alkaline Phosphatase 83 (38-126) U/L Creatine Kinase (55-170) U/L Troponin I 0.034 (0.000-0.034) ng/mL Total Protein 6.4 (6.3-8.2) g/dL Albumin 3.4 L (3.5-5.0) g/dL 08/14/20 Range/Units 06:41 WBC (3.8-10.6) k/uL RBC (4.30-5.90) m/uL Hgb (13.0-17.5) gm/dL Hct (39.0-53.0) % MCV (80.0-100.0) fL MCH (25.0-35.0) pg MCHC (31.0-37.0) g/dL RDW (11.5-15.5) % Plt Count (150-450) k/uL MPV Neutrophils % % Lymphocytes % % Monocytes % % Eosinophils % % Basophils % % Neutrophils # (1.3-7.7) k/uL Lymphocytes # (1.0-4.8) k/uL Monocytes # (0-1.0) k/uL Eosinophils # (0-0.7) k/uL Basophils # (0-0.2) k/uL Sodium (137-145) mmol/L Potassium (3.5-5.1) mmol/L Chloride (98-107) mmol/L Carbon Dioxide (22-30) mmol/L Anion Gap mmol/L BUN (9-20) mg/dL Creatinine (0.66-1.25) mg/dL Est GFR (CKD-EPI)AfAm (>60 ml/min/1.73 sqM) Est GFR (CKD-EPI)NonAf (>60 ml/min/1.73 sqM) Glucose (74-99) mg/dL Calcium (8.4-10.2) mg/dL Magnesium (1.6-2.3) mg/dL Total Bilirubin (0.2-1.3) mg/dL AST (17-59) U/L ALT (4-49) U/L Alkaline Phosphatase (38-126) U/L Creatine Kinase 55 (55-170) U/L Troponin I (0.000-0.034) ng/mL Total Protein (6.3-8.2) g/dL Albumin (3.5-5.0) g/dL Disposition Clinical Impression: Generalized weakness, Fall, Hyperkalemia Disposition: ADMITTED IP TO THIS [facility] Condition: Stable Is patient prescribed a controlled substance at d/c from ED?: No Referrals: Bridger Isabel MD [Primary Care Provider] - 1-2 days Time of Disposition: 08:57 Decision to Admit Reason: Admit from EC Decision Date: 08/14/20 Decision Time: 08:57
[2020-08-14] MEDS ORDERED: SENNOSIDES 8.6 MG TAB PO PRN (10:19)
--- NOTE | 2020-08-14 10:32 | P.HPIM ---
History of Present Illness H&P Date: 08/14/20 Chief Complaint: Fall This is a 75-year-old male with complex past medical history noted below significant for prior stroke and underlying dementia who presented to the emerge ncy room after a fall at home. Patient was awake and alert. He was seen by me in the emergency room. He denies any complaints at the time of my evaluation. His at bedside was providing history. She told me that he usually walks around at home using a walker. Today, patient lost his balance and failed backward hitting his head on the ground. Patient denies any headache or vision changes at this time. Computed tomography scan of the head and cervical spine in the ER with no acute findings. Patient is on anticoagulation with Eliquis. He was noted to have significant hyperkalemia in the ER that was treated with Kayexalate. He also appeared dehydrated. He is able to answer questions appropriately. He will be admitted to the hospital for further management of his medical problems noted below. Review of Systems Review of system: 14 points review of systems were obtained and were negative except to what were mentioned in the HPI. Past Medical History Past Medical History: Atrial Fibrillation, Heart Failure, COPD, CVA/TIA, Dementia, Diabetes Mellitus, GERD/Reflux, Hyperlipidemia, Hypertension, Myocardial Infarction ([place]), Renal Disease, Sleep Apnea/CPAP/BIPAP, Vascular Disorder Additional Past Medical History / Comment(s): IDDM type II, 2006 CVA-more sleepy since, seizures ruled out by [facility], DION-did not tolerate mask, chronic kidney disease stage III, peripheral vascular disease, previous history of UTI with E. 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 Mother Family Medical History: Cancer Additional Family Medical History / Comment(s): Pt/spouse do not recall type of cancer. Brother(s) Family Medical History: Cancer Medications and Allergies Home Medications Medication Instructions Recorded Confirmed Type Famotidine [Pepcid] 20 mg PO DAILY 01/16/18 08/14/20 History INSULIN ASPART (NovoLOG) [NovoLOG See Protocol SQ AC-TID 01/16/18 08/14/20 History (formulary)] Donepezil [Aricept] 5 mg PO HS #30 tab 02/03/18 08/14/20 Rx Furosemide [Lasix] 40 mg PO Q48H 11/07/18 08/14/20 History Memantine [Namenda] 10 mg PO DAILY 11/07/18 08/14/20 History Cholecalciferol [Vitamin D3 (25 1,000 unit PO DAILY 12/30/18 08/14/20 History Mcg = 1000 Iu)] Apixaban [Eliquis] 2.5 mg PO BID #60 tablet 01/11/19 08/14/20 Rx INSULIN ASPART (NovoLOG) [NovoLOG 6 unit SQ AC-TID vial 01/12/19 08/14/20 Rx (formulary)] Atorvastatin Calcium [Lipitor] 80 mg PO HS 06/16/20 08/14/20 History Carvedilol [Coreg] 3.125 mg PO BID 06/16/20 08/14/20 History Desvenlafaxine [Pristiq ER] 100 mg PO DAILY 06/16/20 08/14/20 History Insulin Glargine,Hum.rec.anlog 35 unit SQ HS 06/16/20 08/14/20 History [Lantus Solostar] Ranolazine [Ranolazine ER] 1,000 mg PO BID 06/16/20 08/14/20 History Aspirin EC [Ecotrin Low Dose] 81 mg PO DAILY 08/14/20 08/14/20 History Sennosides [Senna] 8.6 mg PO BID PRN 08/14/20 08/14/20 History calcitrioL [Calcitriol] 0.25 mcg PO TH 08/14/20 08/14/20 History Allergies Allergy/AdvReac Type Severity Reaction Status Date / Time codeine Allergy Unknown Verified 08/14/20 06:36 [From Tylenol-Codeine #3] Physical Exam Vitals: Vital Signs Temp Pulse Resp BP Pulse Ox 08/14/20 10:00 98.1 F 74 20 147/94 98 08/14/20 09:00 88 16 96/75 100 08/14/20 08:00 71 16 96/75 97 08/14/20 06:29 97.7 F 70 16 127/71 97 Intake and Output 08/13/20 08/14/20 08/14/20 22:59 06:59 14:59 Other: Weight 86.183 kg General: The patient is awake and alert, in no distress Eye: there is normal conjunctiva bilaterally. Neck: The neck is supple, there is no JVD. Cardiovascular: Normal S1-S2, no S3-S4, no murmurs. Respiratory: Lungs clear to auscultation bilaterally Gastrointestinal: Abdomen is soft, nontender Musculoskeletal: There is no pedal edema. Neurological:. Speech is normal. Skin: Skin is warm and dry Results CBC & Chem 7: 08/14/20 06:41 08/14/20 06:41 Labs: Abnormal Lab Results - Last 24 Hours (Table) 08/14/20 08/14/20 Range/Units 06:41 06:41 RBC 3.44 L (4.30-5.90) m/uL Hgb 11.1 L (13.0-17.5) gm/dL Hct 33.4 L (39.0-53.0) % Potassium 6.3 H* (3.5-5.1) mmol/L BUN 61 H (9-20) mg/dL Creatinine 2.32 H (0.66-1.25) mg/dL Glucose 214 H (74-99) mg/dL Magnesium 3.2 H (1.6-2.3) mg/dL Albumin 3.4 L (3.5-5.0) g/dL Assessment and Plan Assessment: This is a 75-year-old male with complex past medical history noted below who presented to the emergency room after sustaining a fall at home. Patient was evaluated in the ER and will be admitted to the hospital for further management of his medical problems noted below. 1. Fall with head trauma, probably attributed to weakness and gait imbalance. No syncope reported. I would check orthostatic blood pressure. Computed tomography scan of the head and cervical spine in the ER with no acute findings. Continue neuro check every 4 hours as patient is on anticoagulation with Eliquis. May consider repeat computed tomography scan within 24 hours. Chest, pelvis, lumbar and thoracic spine x-ray in the emergency room with no acute findings 2. Hyperkalemia, treated with Kayexalate in the emergency room. Repeat pot assium level this afternoon. No EKG changes noted 3. History of nonischemic cardiomyopathy status post ICD implantation. Known EF of 20-25%. I would consult cardiology to interrogate the device 4. COPD exacerbation, I would continue duo nebs every 4 hours 5. Stage IIIB chronic kidney disease, creatinine stable around baseline of 2.25. Type 2 diabetes: Continue home dose of Lantus plus sliding scale 5. Physical debility, PT/OT consulted 6. Tobacco abuse, patient continued to smoke up to one pack per day. Counseled extensively to quit 7. Chronic medical problems: Underlying dementia, history of prior stroke, obstructive sleep apnea, Today, I reviewed his medication list and lab work results. Continue current regimen. Repeat lab work in the morning.
--- NOTE | 2020-08-14 10:34 | P.PN ---
Progress Note - Text Progress Note Date: 08/14/20 Advanced Care Planning Active Diagnosis: Nonischemic cardiomyopathy, physical debility with recurrent falls, advanced dementia Persons present: Patient's Summary: Discussed the patient's goals of care in detail with his . I explained to her the meaning of cardiac resuscitation including chest compression and or electric shock if needed. We also discussed mechanical intubation and ventilatory use. She had few questions that I answered to her satisfaction. She would like the patient to be full code. Time spent: Total time spent face to face in education and discussion directly related to advanced care plannin minutes
[2020-08-14] MEDS: IPRATROPIUM-ALBUTEROL 3 ML NEB INHALATION SCH ×3 (11:50→21:04)
[2020-08-14 11:59] LABS: Glucose,Whole Blood 167 mg/dL (75-99)
[2020-08-14] MEDS: INSULIN ASPART (NovoLOG) 100 UNIT/ML VIAL SQ SCH ×3 (12:40→20:43)
[2020-08-14] MEDS ORDERED: SODIUM POLYSTYRENE SULFONATE 15 GM/60 ML BOTTLE PO STA (17:04)
[2020-08-14] MEDS ORDERED: DEXTROSE 50% SYRINGE 50 ML IVP STA (17:04)
[2020-08-14] MEDS ORDERED: INSULIN REGULAR 100 UNIT/ML VIAL IV ONE (17:30)
[2020-08-14 17:54] LABS: Glucose,Whole Blood 66 mg/dL (75-99)
[2020-08-14] MEDS ORDERED: CALCIUM GLUCONATE 1 GM in SODIUM CHLORIDE 0.9% 100 ML IVPB ONE (18:00)
[2020-08-14 18:13] LABS: Glucose,Whole Blood 125 mg/dL (75-99)
[2020-08-14 19:58] LABS: Glucose,Whole Blood 160 mg/dL (75-99)
[2020-08-14] MEDS: APIXABAN 2.5 MG TABLET PO SCH (20:42)
[2020-08-14] MEDS: ATORVASTATIN 80 MG TAB PO SCH (20:42)
[2020-08-14] MEDS: DONEPEZIL 5 MG TAB PO SCH (20:42)
[2020-08-14] MEDS: RANOLAZINE 500 MG TAB.ER.12H PO SCH (20:42)
[2020-08-14] MEDS: carvediloL 3.125 MG TAB PO SCH (20:42)
[2020-08-14] MEDS: INSULIN DETEMIR (LEVEMIR) 100 UNIT/ML SYR SQ SCH (20:42)
[2020-08-14 23:51] LABS: Glucose,Whole Blood 147 mg/dL (75-99)
[2020-08-14] MEDS ORDERED: IPRATROPIUM-ALBUTEROL 3 ML NEB INHALATION PRN (23:59)
[2020-08-15 04:04] LABS: Glucose,Whole Blood 35 mg/dL (75-99)
[2020-08-15] MEDS ORDERED: FUROSEMIDE 10 MG/ML 4 ML VIAL ONE (04:13)
[2020-08-15] MEDS ORDERED: DEXTROSE 50% SYRINGE 50 ML IVP ONE (04:14)
[2020-08-15 04:17] LABS: Glucose,Whole Blood 40 mg/dL (75-99)
[2020-08-15 04:28] LABS: Glucose,Whole Blood 124 mg/dL (75-99)
--- NOTE | 2020-08-15 04:35 | XR ---
EXAM: XR Chest, 1 View CLINICAL HISTORY: ITS.REASON XR Reason: SOB TECHNIQUE: Frontal view of the chest. COMPARISON: 08/14/2020 IMPRESSION: Mildly worsened interstitial opacities suggestive of pulmonary edema. Mild left pleural effusion. Cardiomegaly.
[2020-08-15 06:06] LABS: Appearance,Urine Clear (Clear); Bilirubin,Urine Negative (Negative); Blood,Urine Negative (Negative); Color,Urine Light Yellow; Glucose,Urine (UA) Negative (Negative); Ketones,Urine Negative (Negative); Leukocyte Esterase,Urine Negative (Negative); Nitrite,Urine Negative (Negative); Protein,Urine 1+ (Negative); RBC,Urine 2 /hpf (0-5); Specific Gravity,Urine 1.009 (1.001-1.035); Urobilinogen,Urine <2.0 mg/dL (<2.0)
[2020-08-15 06:12] LABS: Glucose,Whole Blood 201 mg/dL (75-99)
[2020-08-15] MEDS: INSULIN ASPART (NovoLOG) 100 UNIT/ML VIAL SQ SCH ×4 (06:32→20:39)
[2020-08-15] MEDS: IPRATROPIUM-ALBUTEROL 3 ML NEB INHALATION SCH ×4 (07:32→20:02)
[2020-08-15 07:58] LABS: Basophils % (A) 0 %; Eosinophils % (A) 0 %; Lymphocytes # (A) 0.5 k/uL (1.0-4.8); Lymphocytes % (A) 8 %; MCH 30.5 pg (25.0-35.0); MCHC 31.2 g/dL (31.0-37.0); MCV 97.8 fL (80.0-100.0); Mean Platelet Volume 7.1; Monocytes # (A) 0.2 k/uL (0-1.0); Monocytes % (A) 3 %; Neutrophils # (A) 6.4 k/uL (1.3-7.7); Neutrophils % (A) 89 %; Platelet Count 191 k/uL (150-450); RBC 3.27 m/uL (4.30-5.90); RDW 14.5 % (11.5-15.5); WBC 7.2 k/uL (3.8-10.6)
[2020-08-15 08:10] LABS: Calcium 8.3 mg/dL (8.4-10.2); Potassium 5.2 mmol/L (3.5-5.1)
--- NOTE | 2020-08-15 08:48 | P.CRDCN ---
History of Present Illness History of present illness: HISTORY OF PRESENTING ILLNESS This is 75-year-old male past medical history significant for Dementia, atrial fibrillation (on eliquis), dilated cardiomyopathy s/p ICD, nonischemic cardiomyopathy, hypertension, dyslipidemia, type 2 diabetes mellitus, CVA 14 years ago, underlying dementia, chronic kidney disease with history of being on dialysis but off for many years and ongoing nicotine dependence. He follows with a pipe fitter in [place]. We have been asked to see in consultation for device interrogation. Patient seen and examined at bedside, he denies any complaints. He does not know why he is in the hospital. He does not remember falling. Does not give any history or complaints. Per ER notes Patient presents to the emergency department after a fall at home. Patient us milligan walks around at home using a walker. Patient lost his balance and failed backward hitting his head on the ground. Spoke with the patient's Grace, on the phone, with the patient's permission. She states he has been having problems with his mentation, increased confusion. She states he was sleeping in the chair, and he woke up and she believed he was walking to the bathroom with his walker, she heard a thud and feel backwards on to the ground. He did not lose consciousness, was awake the whole time. She states he was not having any complaints prior to this. No chest pain, palpitations, dizziness, lightheadedness, shortness of breath, or presyncope or previous syncopal episode. Yesterday, patient was suppose to go to Dr. Carbaajl office to get his pacemaker checked. Patient recently had his generator change on his device on 08/02/2020. Patient hyperkalemic on admission K 6.3, patient given Kayexalate and 20mgm IV lasix. DIAGNOSTICS Most recent echocardiogram 06/17/2020: left ventricular systolic function is severely impaired EF 20-25%, Grade 2 diastolic dysfunction, LA is moderately dilated, mild mitral regurgitation, mild tricuspid regurgitation EKG reveals bi-ventricular paced Telemetry tracings indicate bi-ventricular paced rhythm HR 70 Chest xray hyperinflation, increased basilar markings atelectasis vs developing infiltrates CT brain - no acute intracranial process Lumbar spine xray- mild degenerative narrowing L4-5 and L5-S1 with ventral spondylosis. Grade 1 anterolisthesis of L4 and L5. Suggestion of spondylolysis at L5. Severe facet joint arthropathy Thoracic spine- no fracture or dislocation. moderate multilevel degenerative disc space narrowing and spondylosis. Pelvis x-ray negative fracture Laboratory reviewed, sodium 137, potassium 5.2, serum creatinine 2.27, BUN 51, UA negative, WBC 7.2, hemoglobin 10, platelets 191 Current cardiac medications include Lasix 40 mg Q48 hours, aspirin 81mg daily, Eliquis 2.5mg BID, carvedilol 3.125mg BID, atorvastatin 80mg nightly. REVIEW OF SYSTEMS At the time of my exam: CONSTITUTIONAL: Denies fever or chills. CARDIOVASCULAR: Denies chest pain, shortness of breath, orthopnea, PND or palpitations. RESPIRATORY: Denies cough. GASTROINTESTINAL: Denies abdominal pain, diarrhea, constipation, nausea or vom iting. MUSCULOSKELETAL: Denies myalgias. NEUROLOGIC: Denies numbness, tingling, headacbe or weakness. ENDOCRINE: Denies fatigue, weight change, polydipsia or polyurina. GENITOURINARY: Denies burning, hematuria or urgency with micturation. HEMATOLOGIC: Denies history of anemia or bleeding. PHYSICAL EXAMINATION Blood pressure 149/67 heart rate 60 afebrile and maintaining oxygen saturation 95% on 3 Lcannula CONSTITUTIONAL: No apparent distress. HEENT: Head is normocephalic. Pupils are equal, round. Sclerae anicteric. Mucous membranes of the mouth are moist. No JVD. No carotid bruit. CHEST EXAMINATION: Lungs are clear to auscultation. Right lower lobe with some wheezing. No chest wall tenderness is noted on palpation or with deep breathing. Left Chest- Pacemaker insertion site, healing, clean, dry, incision intact, no hematoma or redness noted. HEART EXAMINATION: Regular rate and rhythm. S1, S2 heard. No murmurs, gallops or rub. ABDOMEN: Soft, nontender. Positive bowel sounds. EXTREMITIES: 2+ peripheral pulses, no lower extremity edema and no calf tenderness. NEUROLOGIC EXAMINATION: Patient is awake, alert and oriented x 2. ASSESSMENT Fall - mechanical vs vasovagal vs cardiac etiology potentially his device not capturing Recent generator change 08/02/[address] Carbajal Nonischemic cardiomyopathy status post ICD Atrial fibrillation - on eliquis Hypertension Hyperlipidemia Diabetes mellitus type 2 History of CVA Chronic kidney disease Nicotine dependence Hyperkalemia- K 6.3 on admission PLAN -Will check orthostatics -Will obtain records from Dr. Carbajal office on type of pacemaker, and patient not able to give this information -Interrogate pacemaker today and will follow up on the findings Nurse Practitioner note has been reviewed, I agree with a documented findings and plan of care. Patient was seen and examined. Past Medical History Past Medical History: Atrial Fibrillation, Heart Failure, COPD, CVA/TIA, Dementia, Diabetes Mellitus, GERD/Reflux, Hyperlipidemia, Hypertension, Myocardial Infarction ([place]), Renal Disease, Sleep Apnea/CPAP/BIPAP, Vascular Disorder Additional Past Medical History / Comment(s): IDDM type II, 2006 CVA-more sleepy since, seizures ruled out by [facility], DION-did not tolerate mask, chronic kidney disease stage III, peripheral vascular disease, previous history of UTI with E. coli Last Myocardial Infarction Date:: 2006 History of Any Multi-Drug Resistant Organisms: None Reported Past Surgical History: Heart Catheterization, Pacemaker Additional Past Surgical History / Comment(s): 2007 Cardiac cath, L caratid endartectomy, pacemaker, R foot bunionectomy, R 5th finger amputation d/t press accident, colonoscopy, bilateral cataracts removed/lens implants, Past Anesthesia/Blood Transfusion Reactions: No Reported Reaction Type of Cardiac Device: Permanent Pacemaker Device Placement Date:: 2009 Past Psychological History: Anxiety, Depression Additional Psychological History / Comment(s): Pt resides with his spouse. He has a walker and a wheelchair neither of which he uses much. He no longer drives. His spouse drives. His spouse manages his medications. Smoking Status: Current every day smoker Past Alcohol Use History: None Reported Additional Past Alcohol Use History / Comment(s): Pt started smoking as a teen. He is a 2 ppd smoker. Past Drug Use History: None Reported - Past Family History Father Family Medical History: No Reported History Additional Family Medical History / Comment(s): Father in a MVA. Mother Family Medical History: Cancer Additional Family Medical History / Comment(s): Pt/spouse do not recall type of cancer. Brother(s) Family Medical History: Cancer Medications and Allergies Home Medications Medication Instructions Recorded Confirmed Type Famotidine [Pepcid] 20 mg PO DAILY 01/16/18 08/14/20 History INSULIN ASPART (NovoLOG) [NovoLOG See Protocol SQ AC-TID 01/16/18 08/14/20 History (formulary)] Donepezil [Aricept] 5 mg PO HS #30 tab 02/03/18 08/14/20 Rx Furosemide [Lasix] 40 mg PO Q48H 11/07/18 08/14/20 History Memantine [Namenda] 10 mg PO DAILY 11/07/18 08/14/20 History Cholecalciferol [Vitamin D3 (25 1,000 unit PO DAILY 12/30/18 08/14/20 History Mcg = 1000 Iu)] Apixaban [Eliquis] 2.5 mg PO BID #60 tablet 01/11/19 08/14/20 Rx INSULIN ASPART (NovoLOG) [NovoLOG 6 unit SQ AC-TID vial 01/12/19 08/14/20 Rx (formulary)] Atorvastatin Calcium [Lipitor] 80 mg PO HS 06/16/20 08/14/20 History Carvedilol [Coreg] 3.125 mg PO BID 06/16/20 08/14/20 History Desvenlafaxine [Pristiq ER] 100 mg PO DAILY 06/16/20 08/14/20 History Insulin Glargine,Hum.rec.anlog 35 unit SQ HS 06/16/20 08/14/20 History [Lantus Solostar] Ranolazine [Ranolazine ER] 1,000 mg PO BID 06/16/20 08/14/20 History Aspirin EC [Ecotrin Low Dose] 81 mg PO DAILY 08/14/20 08/14/20 History Sennosides [Senna] 8.6 mg PO BID PRN 08/14/20 08/14/20 History calcitrioL [Calcitriol] 0.25 mcg PO TH 08/14/20 08/14/20 History Allergies Allergy/AdvReac Type Severity Reaction Status Date / Time codeine Allergy Unknown Verified 08/14/20 06:36 [From Tylenol-Codeine #3] Physical Exam Vitals: Vital Signs Temp Pulse Pulse Resp BP BP Pulse Ox 08/14/20 12:42 97.8 F 70 16 134/66 99 08/14/20 11:36 97.8 F 70 20 139/66 99 08/14/20 10:00 98.1 F 74 20 147/94 98 08/14/20 09:00 88 16 96/75 100 08/14/20 08:00 71 16 96/75 97 08/14/20 06:29 97.7 F 70 16 127/71 97 Intake and Output 08/13/20 08/14/20 08/14/20 22:59 06:59 14:59 Intake Total 0 Balance 0 Intake: Oral 0 Other: # Bowel Movements 1 Weight 86.183 kg 86.183 kg Results 08/15/20 07:12 08/15/20 07:12 Cardiac Enzymes 08/14/20 08/14/20 Range/Units 06:41 06:41 AST 24 (17-59) U/L Troponin I 0.034 (0.000-0.034) ng/mL CBC 08/14/20 Range/Units 06:41 WBC 6.8 (3.8-10.6) k/uL RBC 3.44 L (4.30-5.90) m/uL Hgb 11.1 L (13.0-17.5) gm/dL Hct 33.4 L (39.0-53.0) % Plt Count 198 (150-450) k/uL Comprehensive Metabolic Panel 08/14/20 Range/Units 06:41 Sodium 138 (137-145) mmol/L Potassium 6.3 H* (3.5-5.1) mmol/L Chloride 104 (98-107) mmol/L Carbon Dioxide 29 (22-30) mmol/L BUN 61 H (9-20) mg/dL Creatinine 2.32 H (0.66-1.25) mg/dL Glucose 214 H (74-99) mg/dL Calcium 8.7 (8.4-10.2) mg/dL AST 24 (17-59) U/L ALT 13 (4-49) U/L Alkaline Phosphatase 83 (38-126) U/L Total Protein 6.4 (6.3-8.2) g/dL Albumin 3.4 L (3.5-5.0) g/dL Current Medications Generic Name Dose Route Start Last Admin Trade Name Freq PRN Reason Stop Dose Admin Albuterol/Ipratropium 3 ml 08/14/20 12:00 08/14/20 11:50 Ipratropium-Albuterol 3 Ml Neb INHALATION Not Given RT-QID [facility] Apixaban 2.5 mg 08/14/20 21:00 Apixaban 2.5 Mg Tablet PO BID [facility] Aspirin 81 mg 08/15/20 09:00 Aspirin 81 Mg PO DAILY [facility] Atorvastatin Calcium 80 mg 08/14/20 21:00 Atorvastatin 80 Mg Tab PO HS [facility] Calcitriol 0.25 mcg 08/15/20 09:00 Calcitriol 0.25 Mcg Cap PO TH [facility] Carvedilol 3.125 mg 08/14/20 21:00 Carvedilol 3.125 Mg Tab PO BID [facility] Cholecalciferol 25 mcg 08/15/20 09:00 Cholecalciferol 25 Mcg (1000 Iu) Tablet PO DAILY [facility] Desvenlafaxine Succinate 100 mg 08/15/20 09:00 Desvenlafaxine Succinate 50 Mg Tab.Er.24h PO DAILY [facility] Donepezil HCl 5 mg 08/14/20 21:00 Donepezil 5 Mg Tab PO HS [facility] Famotidine 20 mg 08/15/20 09:00 Famotidine 20 Mg Tab PO DAILY [facility] Furosemide 40 mg 08/15/20 09:00 Furosemide 40 Mg Tab PO Q48H [facility] Sodium Chloride 1,000 mls @ 75 mls/hr 08/14/20 08:00 08/14/20 08:41 Saline 0.9% IV 75 mls/hr .[id number] [facility] Administration Insulin Aspart 0 unit 08/14/20 12:30 08/14/20 12:40 Insulin Aspart (Novolog) 100 Unit/Ml Vial SQ 2 unit ACHS [facility] Administration Protocol Insulin Detemir 35 unit 08/14/20 21:00 Insulin Detemir (Levemir) 100 Unit/Ml Syr SQ HS [facility] Memantine 10 mg 08/15/20 09:00 Memantine 10 Mg Tab PO DAILY [facility] Naloxone HCl 0.2 mg 08/14/20 08:57 Naloxone 0.4 Mg/Ml 1 Ml Vial IV Q2M PRN Opioid Reversal Ranolazine 1,000 mg 08/14/20 21:00 Ranolazine 500 Mg Tab.Er.12h PO BID [facility] Senna 8.6 mg 08/14/20 10:19 Sennosides 8.6 Mg Tab PO BID PRN Constipation Intake and Output 08/13/20 08/14/20 08/14/20 22:59 06:59 14:59 Intake Total 0 Balance 0 Intake: Oral 0 Other: # Bowel Movements 1 Weight 86.183 kg 86.183 kg Patient Weight 08/15/20 06:59 Weight 86.183 kg 08/14/20 06:41 08/14/20 06:41
[2020-08-15] MEDS ORDERED: FUROSEMIDE 40 MG TAB PO SCH (09:00)
[2020-08-15] MEDS: RANOLAZINE 500 MG TAB.ER.12H PO SCH ×2 (11:01→20:38)
[2020-08-15] MEDS: FAMOTIDINE 20 MG TAB PO SCH (11:01)
[2020-08-15] MEDS: CHOLECALCIFEROL 25 MCG (1000 IU) TABLET PO SCH (11:01)
[2020-08-15] MEDS: ASPIRIN 81 MG PO SCH (11:01)
[2020-08-15] MEDS: DESVENLAFAXINE SUCCINATE 50 MG TAB.ER.24H PO SCH (11:02)
[2020-08-15] MEDS: MEMANTINE 10 MG TAB PO SCH (11:02)
[2020-08-15] MEDS: carvediloL 3.125 MG TAB PO SCH ×2 (11:02→20:38)
[2020-08-15] MEDS: APIXABAN 2.5 MG TABLET PO SCH ×2 (11:02→20:38)
[2020-08-15 12:01] LABS: Glucose,Whole Blood 189 mg/dL (75-99)
[2020-08-15] MEDS: NICOTINE 21MG/24HR PATCH TRANSDERM SCH (14:01)
[2020-08-15 14:02] VITALS: BMI 20.2
[2020-08-15] MEDS ORDERED: NICOTINE 21MG/24HR PATCH TRANSDERM SCH (14:15)
--- NOTE | 2020-08-15 14:26 | CDI ---
Documentation Clarification Form Date: 08/15/2020 01:51:41 PM From: Anna Mann RN CCDS Admit Date: 08/14/2020 09:43:00 AM Patient Name: Samir Chan Visit Number: [id number] Discharge Date: ATTENTION: The Clinical Documentation Specialists (CDI) and [facility] Coding Staff appreciate your assistance in clarifying documentation. Please respond to the clarification below the line at the bottom and electronically sign. The CDI & [facility] Coding staff will review the response and follow-up if needed. Please note: Queries are made part of the Legal Health Record. If you have any questions, please contact the author of this message via ITS. Dr. Isaías Lord, Your patient has the documented diagnosis of unspecified CHF 08/14 in H&P. Additional information regarding the [type, acuity] of CHF is requested. History/Risk Factors:75-year-old male presents to the ED after a fall from home while walking with walker. Medical history: Heart Failure, Atrial fibrillation, HTN, HLD and DM. H&P 08/14. Clinical Indicators: VS/Pulse OX: 08/14 B/P 127/71; 70; Temp 97.7 F Oral; RR 16; SpO2 97% room air. Echocardiogram Results: 06/17 Left ventricular systolic function is severely impaired with an EF 20-25% Increased LAP Grade 2 diastolic dysfunction; Aortic valve is trileaflet and is mildly thickened; Mild mitral regurgitation; mild tricuspid regurgitation. Chest X Ray: 08/14 Increased basilar markings may reflect subsegmental atelectasis or developing infiltrates. Chest X Ray: 08/15 Mildly worsened interstitial opacities suggestive of pulmonary edema. Mild left pleural effusion. Cardiomegaly. Treatment: 08/14 Coreg 3.125mg PO BID [facility]; 08/14 Lasix 20mg IVP x1; 08/15 Lasix 40mg IV X1; 08/15 Lasix 40mg PO Q48H [facility]. In your professional opinion, can you please clarify the [acuity and type] of CHF if known? [ ] Acute on Chronic Systolic Heart Failure (reduced EF) [ ] Chronic Systolic Heart Failure (reduced EF) [ ] Other, please specify [ ] Unable to determine (Template Last Revised: May 2020) Chronic systolic heart failure, nonischemic with EF of 20-25% MTDD
--- NOTE | 2020-08-15 14:38 | P.PN ---
Progress Note - Text Progress Note Date: 08/15/20 History of presenting complaint: [This is a 75-year-old male with complex past medical history noted below significant for prior stroke and underlying dementia who presented to the emergency room after a fall at home. Patient was awake and alert. He was seen by me in the emergency room. He denies any complaints at the time of my evaluation. His at bedside was providing history. She told me that he usually walks around at home using a walker. Today, patient lost his balance and fell backward hitting his head on the ground. Patient denies any headache or vision changes at this time. Computed tomography scan of the head and cervical spine in the ER with no acute findings. Patient is on anticoagulation with Eliquis. He was noted to have significant hyperkalemia in the ER that was treated with Kayexalate. He also appeared dehydrated. He is able to answer questions appropriately. ] Admitted with fall. Found to be orthostatic. Hyperkalemia treated with Kayexalate. Today: Sitting up in a chair. Tired. Decreased oral intake. Does use a walker at home. Does complain of feeling dizzy on standing up. Found to be orthostatic Review of systems: Was done for constitutional, cardiovascular, GI, pulmonary. relevant finding as above Active Medications Albuterol/Ipratropium (Ipratropium-Albuterol 3 Ml Neb) 3 ml INHALATION RT-QID [facility] Last Admin: 08/15/20 12:05 Dose: 3 ml Documented by: Albuterol/Ipratropium (Ipratropium-Albuterol 3 Ml Neb) 3 ml INHALATION RT-Q2H PRN PRN Reason: Shortness Of Breath Or Wheezing Last Admin: 08/15/20 02:24 Dose: 3 ml Documented by: Apixaban (Apixaban 2.5 Mg Tablet) 2.5 mg PO BID [facility] Last Admin: 08/15/20 11:02 Dose: 2.5 mg Documented by: Aspirin (Aspirin 81 Mg) 81 mg PO DAILY [facility] Last Admin: 08/15/20 11:01 Dose: 81 mg Documented by: Atorvastatin Calcium (Atorvastatin 80 Mg Tab) 80 mg PO HS [facility] Last Admin: 08/14/20 20:42 Dose: 80 mg Documented by: Calcitriol (Calcitriol 0.25 Mcg Cap) 0.25 mcg PO TH [facility] Last Admin: 08/15/20 11:02 Dose: 0.25 mcg Documented by: Carvedilol (Carvedilol 3.125 Mg Tab) 3.125 mg PO BID [facility] Last Admin: 08/15/20 11:02 Dose: 3.125 mg Documented by: Cholecalciferol (Cholecalciferol 25 Mcg (1000 Iu) Tablet) 25 mcg PO DAILY [facility] Last Admin: 08/15/20 11:01 Dose: 25 mcg Documented by: Desvenlafaxine Succinate (Desvenlafaxine Succinate 50 Mg Tab.Er.24h) 100 mg PO DAILY [facility] Last Admin: 08/15/20 11:02 Dose: 100 mg Documented by: Donepezil HCl (Donepezil 5 Mg Tab) 5 mg PO [facility] Last Admin: 08/14/20 20:42 Dose: 5 mg Documented by: Famotidine (Famotidine 20 Mg Tab) 20 mg PO DAILY [facility] Last Admin: 08/15/20 11:01 Dose: 20 mg Documented by: Furosemide (Furosemide 40 Mg Tab) 40 mg PO Q48H [facility] Last Admin: 08/15/20 11:02 Dose: 40 mg Documented by: Insulin Aspart (Insulin Aspart (Novolog) 100 Unit/Ml Vial) 0 unit SQ [facility]; Protocol Last Admin: 08/15/20 14:01 Dose: 2 unit Documented by: Insulin Detemir (Insulin Detemir (Levemir) 100 Unit/Ml Syr) 35 unit SQ [facility] Last Admin: 08/14/20 20:42 Dose: 35 unit Documented by: Memantine (Memantine 10 Mg Tab) 10 mg PO DAILY [facility] Last Admin: 08/15/20 11:02 Dose: 10 mg Documented by: Naloxone HCl (Naloxone 0.4 Mg/Ml 1 Ml Vial) 0.2 mg IV Q2M PRN PRN Reason: Opioid Reversal Nicotine (Nicotine 21mg/24hr Patch) 1 patch TRANSDERM DAILY [facility] Last Admin: 08/15/20 14:01 Dose: 1 patch Documented by: Ranolazine (Ranolazine 500 Mg Tab.Er.12h) 1,000 mg PO BID [facility] Last Admin: 08/15/20 11:01 Dose: 1,000 mg Documented by: Senna (Sennosides 8.6 Mg Tab) 8.6 mg PO BID PRN PRN Reason: Constipation On examination: VITAL SIGNS: 97.3, 70, 155 x 67 on laying down, 115 x 55 on standing up. 97% on 2 L GENERAL APPEARANCE: Sitting up in a chair, leaning forward, tired HEENT: Normal external appearance of nose and ear. Oral cavity normal EYES: Pupils equal. Conjunctiva normal. NECK: JVD not raised. Mass not palpable. RESPIRATORY: Respiratory effort normal. Decreased breath sounds. CARDIOVASCULAR: First and second sounds normal. No edema. ABDOMEN: Soft. Liver and spleen not palpable. No tenderness. No mass palpable. PSYCHIATRY: Answering simple questions INVESTIGATIONS, reviewed in the clinical context: August 15: WBC 7.2 hemoglobin 10 platelets 191 that she 5.2 151 and creatinine 2.27 UA protein 1+ COVID myelitis [PCR] not detected Thoracic, lumbar, pelvic, chest: X-ray: No fracture, evidence of OA Head cervical spine CT: No fracture Assessment and plan: -Near-syncope/fall from orthostatic hypertension, likely from autonomic dysfunction from diabetes Bilateral CHARLIE stockings. Fall precautions. -Persistent atrial fibrillation Paced rhythm. On eliquis -COPD in a current smoker, symptoms controlled DuoNeb -Chronic nicotine dependence patient cigarette smoker Nicotine patch -Moderate cognitive impairment from late onset Alzheimer's dementia -Diabetes mellitus type 2 On Levemir. 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 Lasix. -Obstructive sleep apnea, unable to wear a mask -Peripheral arterial disease On aspirin, Lipitor -Permanent pacemaker Pacemaker check -Chronic gait dysfunction, and a baseline patient uses a walker Patient did fairly well with PT OT. Plan to be for the patient to go home. When stable. CHARLIE stockings on her today.
[2020-08-15 17:14] LABS: Glucose,Whole Blood 183 mg/dL (75-99)
[2020-08-15 20:03] LABS: Glucose,Whole Blood 249 mg/dL (75-99)
[2020-08-15] MEDS: INSULIN DETEMIR (LEVEMIR) 100 UNIT/ML SYR SQ SCH (20:38)
[2020-08-15] MEDS: ATORVASTATIN 80 MG TAB PO SCH (20:38)
[2020-08-15] MEDS: DONEPEZIL 5 MG TAB PO SCH (20:38)
[2020-08-16 01:01] LABS: Glucose,Whole Blood 187 mg/dL (75-99)
[2020-08-16 04:04] VITALS: TEMP 97.9
[2020-08-16 06:07] LABS: Glucose,Whole Blood 46 mg/dL (75-99)
[2020-08-16] MEDS: INSULIN ASPART (NovoLOG) 100 UNIT/ML VIAL SQ SCH ×2 (06:08→12:31)
[2020-08-16 06:18] LABS: Glucose,Whole Blood 69 mg/dL (75-99)
[2020-08-16 06:31] LABS: Glucose,Whole Blood 78 mg/dL (75-99)
[2020-08-16] MEDS: IPRATROPIUM-ALBUTEROL 3 ML NEB INHALATION SCH ×2 (07:30→11:14)
[2020-08-16] MEDS: DESVENLAFAXINE SUCCINATE 50 MG TAB.ER.24H PO SCH (08:52)
[2020-08-16] MEDS: ASPIRIN 81 MG PO SCH (08:53)
[2020-08-16] MEDS: FAMOTIDINE 20 MG TAB PO SCH (08:53)
[2020-08-16] MEDS: carvediloL 3.125 MG TAB PO SCH (08:53)
[2020-08-16] MEDS: RANOLAZINE 500 MG TAB.ER.12H PO SCH (08:53)
[2020-08-16] MEDS: MEMANTINE 10 MG TAB PO SCH (08:53)
[2020-08-16] MEDS: CHOLECALCIFEROL 25 MCG (1000 IU) TABLET PO SCH (08:53)
[2020-08-16] MEDS: APIXABAN 2.5 MG TABLET PO SCH (08:53)
[2020-08-16] MEDS: NICOTINE 21MG/24HR PATCH TRANSDERM SCH (08:54)
[2020-08-16 09:03] LABS: Calcium 8.7 mg/dL (8.4-10.2); Magnesium 2.8 mg/dL (1.6-2.3); Potassium 5.1 mmol/L (3.5-5.1)
[2020-08-16 09:07] VITALS: RESP 18
[2020-08-16 10:50] LABS: Glucose,Whole Blood 345 mg/dL (75-99)
[2020-08-16 11:25] VITALS: PULSE 70
[2020-08-16 12:13] LABS: Glucose,Whole Blood 331 mg/dL (75-99)
[2020-08-16 12:36] VITALS: BP 150/68
--- NOTE | 2020-08-16 14:29 | P.PN ---
Subjective This is 75-year-old male past medical history significant for Dementia, atrial fibrillation (on eliquis), dilated cardiomyopathy s/p ICD, n onischemic cardiomyopathy, hypertension, dyslipidemia, type 2 diabetes mellitus, CVA 14 years ago, underlying dementia, chronic kidney disease with history of being on dialysis but off for many years and ongoing nicotine dependence. He follows with a cut off man in [place]. We have been asked to see in consultation for device interrogation. Patient seen and examined at bedside, he denies any complaints. He does not know why he is in the hospital. He does not remember falling. Does not give any history or complaints. Per ER notes Patient presents to the emergency department after a fall at home. Patient usually walks around at home using a walker. Patient lost his balance and failed backward hitting his head on the ground. Spoke with the patient's Grace, on the phone, with the patient's permission. She states he has been having problems with his mentation, increased confusion. She states he was sleeping in the chair, and he woke up and she believed he was walking to the bathroom with his walker, she heard a thud and feel backwards on to the ground. He did not lose consciousness, was awake the whole time. She states he was not having any complaints prior to this. No chest pain, palpitations, dizziness, lightheadedness, shortness of breath, or presyncope or previous syncopal episode. Yesterday, patient was suppose to go to Dr. Carbajal office to get his pacemaker checked. Patient recently had his generator change on his device on 08/02/2020. Patient hyperkalemic on admission K 6.3, patient given Kayexalate and 20mgm IV lasix. Most recent echocardiogram 06/17/2020: left ventricular systolic function is severely impaired EF 20-25%, Grade 2 diastolic dysfunction, LA is moderately dilated, mild mitral regurgitation, mild tricuspid regurgitation EKG reveals bi-ventricular paced Chest xray hyperinflation, increased basilar markings atelectasis vs developing infiltrates CT brain - no acute intracranial process Lumbar spine xray- mild degenerative narrowing L4-5 and L5-S1 with ventral spondylosis. Grade 1 anterolisthesis of L4 and L5. Suggestion of spondylolysis at L5. Severe facet joint arthropathy Thoracic spine- no fracture or dislocation. moderate multilevel degenerative disc space narrowing and spondylosis. Pelvis x-ray negative fracture Current cardiac medications include Lasix 40 mg Q48 hours, aspirin 81mg daily, Eliquis 2.5mg BID, carvedilol 3.125mg BID, atorvastatin 80mg nightly. 08/16/2020 Patient seen and examined at bedside, no acute distress. In The bedside chair. No complaints. Orthostatic vital signs were positive yesterday evening. Interrog ation of pacemaker completed and within normal limits, no vtach or vfib. BiV paced 99% of the time, no loss of caputure noted. Telemetry tracings indicate bi-ventricular paced rhythm HR 70 Laboratory reviewed, sodium 137, potassium 5.1, serum creatinine 2.37, BUN 48 PHYSICAL EXAMINATION Blood pressure 149/67 heart rate 60 afebrile and maintaining oxygen saturation 95% on 3 Lcannula CONSTITUTIONAL: No apparent distress. HEENT: No JVD. No carotid bruit. CHEST EXAMINATION: Lungs are clear to auscultation. Right lower lobe with some wheezing. No chest wall tenderness is noted on palpation or with deep breathing. Left Chest- Pacemaker insertion site, healing, clean, dry, incision intact, no h ematoma or redness noted. HEART EXAMINATION: Regular rate and rhythm. S1, S2 heard. No murmurs, gallops or rub. ABDOMEN: Soft, nontender. Positive bowel sounds. EXTREMITIES: 2+ peripheral pulses, no lower extremity edema and no calf tenderness. NEUROLOGIC EXAMINATION: Patient is awake, alert and oriented x 2. ASSESSMENT Fall - most likely vasovagal Recent generator change 08/02/[address] Carbajal Nonischemic cardiomyopathy status post ICD Atrial fibrillation - on eliquis Hypertension Hyperlipidemia Diabetes mellitus type 2 History of CVA Chronic kidney disease Nicotine dependence Hyperkalemia- K 6.3 on admission PLAN -Interrogation of pacemaker completed and within normal limits, no vtach or vfib. BiV paced 99%, no loss of caputure noted. -From cardiology perspective, no further workup indicated. We will sign off at this time. -Patient should follow up with Dr. Carbajal Nurse Practitioner note has been reviewed, I agree with a documented findings and plan of care. Patient was seen and examined. Objective - Vital Signs Vital signs: Vital Signs Temp 97.9 F 08/16/20 04:00 Pulse 70 08/16/20 12:00 Resp 18 08/16/20 12:00 BP 150/68 08/16/20 12:00 Pulse Ox 94 L 08/16/20 12:00 Intake & Output 08/15/20 08/16/20 08/16/20 18:59 06:59 18:59 Intake Total 340 560 Output Total 1 Balance 340 -1 560 Weight 67.5 kg 69.5 kg Intake: Oral 340 560 Output: Urine 1 Other: Voiding Method Diaper Diaper Diaper # Voids 2 # Bowel Movements 1 - Labs CBC & Chem 7: 08/15/20 07:12 08/16/20 08:07 Labs: Abnormal Lab Results - Last 24 Hours (Table) 08/15/20 08/15/20 08/16/20 Range/Units 17:09 20:01 00:59 BUN (9-20) mg/dL Creatinine (0.66-1.25) mg/dL Glucose (74-99) mg/dL POC Glucose (mg/dL) 183 H 249 H 187 H (75-99) mg/dL Magnesium (1.6-2.3) mg/dL 08/16/20 08/16/20 08/16/20 Range/Units 06:01 06:17 08:07 BUN 48 H (9-20) mg/dL Creatinine 2.37 H (0.66-1.25) mg/dL Glucose 183 H (74-99) mg/dL POC Glucose (mg/dL) 46 L 69 L (75-99) mg/dL Magnesium 2.8 H (1.6-2.3) mg/dL 08/16/20 08/16/20 Range/Units 10:48 12:06 BUN (9-20) mg/dL Creatinine (0.66-1.25) mg/dL Glucose (74-99) mg/dL POC Glucose (mg/dL) 345 H 331 H (75-99) mg/dL Magnesium (1.6-2.3) mg/dL
--- NOTE | 2020-08-16 17:56 | P.DS ---
Providers Date of admission: 08/14/20 09:43 Expected date of discharge: 08/16/20 Attending physician: Isaías Lord Consults: 08/14/20 10:22 Consult Physician Routine Consulting Provider: Bree Corado Consult Reason/Comments: Device interrogation Do you want consulting provider notified?: Yes Primary care physician: [facility] Course: History of presenting complaint: [This is a 75-year-old male with complex past medical history noted below significant for prior stroke and underlying dementia who presented to the emergency room after a fall at home. Patient was awake and alert. He was seen by me in the emergency room. He denies any complaints at the time of my evaluation. His at bedside was providing history. She told me that he usually walks around at home using a walker. Today, patient lost his balance and fell backward hitting his head on the ground. Patient denies any headache or vision changes at this time. Computed tomography scan of the head and cervical spine in the ER with no acute findings. Patient is on anticoagulation with Eliquis. He was noted to have significant hyperkalemia in the ER that was treated with Kayexalate. He also appeared dehydrated. He is able to answer questions appropriately. ] Admitted with fall. Found to be orthostatic. Hyperkalemia treated with Kayexalate. Patient a pacemaker check. Patient had a recent generator change on August 02 with Orthostatic felt to be from autonomic dysfunction from underlying diabetes possibly. Today: Discussed with the patient. To be careful with ambulation. CHARLIE stockings ordered. Cleared by cardiology Consultation: Dr. Jose Eduardo Ring-cardiology On examination: VITAL SIGNS: 70, 18, 150/68, 94% room air GENERAL APPEARANCE: Sitting up in a chair, comfortable HEENT: Normal external appearance of nose and ear. Oral cavity normal EYES: Pupils equal. Conjunctiva normal. NECK: JVD not raised. Mass not palpable. RESPIRATORY: Respiratory effort normal. Decreased breath sounds. CARDIOVASCULAR: First and second sounds normal. No edema. ABDOMEN: Soft. Liver and spleen not palpable. No tenderness. No mass palpable. PSYCHIATRY: Answering simple questions INVESTIGATIONS, reviewed in the clinical context: August 15: WBC 7.2 hemoglobin 10 platelets 191 that she 5.2 151 and creatinine 2.27 UA protein 1+ COVID myelitis [PCR] not detected Thoracic, lumbar, pelvic, chest: X-ray: No fracture, evidence of OA Head cervical spine CT: No fracture Assessment and plan: -Near-syncope/fall from orthostatic hypertension, likely from autonomic dysfunc tion from diabetes Bilateral CHARLIE stockings. Fall precautions. -Persistent atrial fibrillation Paced rhythm. On eliquis -COPD in a current smoker, symptoms controlled DuoNeb -Chronic nicotine dependence patient cigarette smoker Nicotine patch -Moderate cognitive impairment from late onset Alzheimer's dementia -Diabetes mellitus type 2 On Levemir. 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 Lasix. -Obstructive sleep apnea, unable to wear a mask -Peripheral arterial disease On aspirin, Lipitor -Permanent pacemaker-handed did change in August 02-2020 Pacemaker check -Chronic gait dysfunction, and a baseline patient uses a walker Disposition: Home Patient Condition at Discharge: Stable Plan - Discharge Summary Discharge Rx Participant: No New Discharge Prescriptions: Continue Famotidine [Pepcid] 20 mg PO DAILY INSULIN ASPART (NovoLOG) [NovoLOG (formulary)] See Protocol SQ AC-TID Donepezil [Aricept] 5 mg PO HS #30 tab Furosemide [Lasix] 40 mg PO Q48H Memantine [Namenda] 10 mg PO DAILY Cholecalciferol [Vitamin D3 (25 Mcg = 1000 Iu)] 1,000 unit PO DAILY Apixaban [Eliquis] 2.5 mg PO BID #60 tablet INSULIN ASPART (NovoLOG) [NovoLOG (formulary)] 6 unit SQ AC-TID vial Insulin Glargine,Hum.rec.anlog [Lantus Solostar] 35 unit SQ HS Carvedilol [Coreg] 3.125 mg PO BID Atorvastatin Calcium [Lipitor] 80 mg PO HS Ranolazine [Ranolazine ER] 1,000 mg PO BID Desvenlafaxine [Pristiq ER] 100 mg PO DAILY Aspirin EC [Ecotrin Low Dose] 81 mg PO DAILY Sennosides [Senna] 8.6 mg PO BID PRN PRN Reason: Constipation calcitrioL [Calcitriol] 0.25 mcg PO TH Discharge Medication List Famotidine [Pepcid] 20 mg PO DAILY 01/16/18 [History] INSULIN ASPART (NovoLOG) [NovoLOG (formulary)] See Protocol SQ AC-TID 01/16/18 [History] Donepezil [Aricept] 5 mg PO HS #30 tab 02/03/18 [Rx] Furosemide [Lasix] 40 mg PO Q48H 11/07/18 [History] Memantine [Namenda] 10 mg PO DAILY 11/07/18 [History] Cholecalciferol [Vitamin D3 (25 Mcg = 1000 Iu)] 1,000 unit PO DAILY 12/30/18 [History] Apixaban [Eliquis] 2.5 mg PO BID #60 tablet 01/11/19 [Rx] INSULIN ASPART (NovoLOG) [NovoLOG (formulary)] 6 unit SQ AC-TID vial 01/12/19 [Rx] Atorvastatin Calcium [Lipitor] 80 mg PO HS 06/16/20 [History] Carvedilol [Coreg] 3.125 mg PO BID 06/16/20 [History] Desvenlafaxine [Pristiq ER] 100 mg PO DAILY 06/16/20 [History] Insulin Glargine,Hum.rec.anlog [Lantus Solostar] 35 unit SQ HS 06/16/20 [Hist ory] Ranolazine [Ranolazine ER] 1,000 mg PO BID 06/16/20 [History] Aspirin EC [Ecotrin Low Dose] 81 mg PO DAILY 08/14/20 [History] Sennosides [Senna] 8.6 mg PO BID PRN 08/14/20 [History] calcitrioL [Calcitriol] 0.25 mcg PO TH 08/14/20 [History] Follow up Appointment(s)/Referral(s): [facility], [NON-STAFF] - Bridger Isabel MD [Primary Care Provider] - 1-2 days Patient Instructions/Handouts: Hyperkalemia (DC) Activity/Diet/Wound Care/Special Instructions: fall precautions Discharge Disposition: HOME SELF-CARE
== END 2020-08-16 13:59 | disposition home or self-care (01) | DRG 74 ==
LOC: EC 06:23 → 3SCARD 09:43
PROVIDERS: ADMIT Hospitalist; ATTEND Hospitalist
DX: E11.43 Type 2 diabetes mellitus with diabetic autonomic (poly)neuropathy (principal); I13.0 Hypertensive heart and chronic kidney disease with heart failure and stage 1 through stage 4 chronic kidney disease, or unspecified chronic kidney disease; I42.0 Dilated cardiomyopathy; I48.19 Other persistent atrial fibrillation; I50.22 Chronic systolic (congestive) heart failure; J44.1 Chronic obstructive pulmonary disease with (acute) exacerbation; E11.22 Type 2 diabetes mellitus with diabetic chronic kidney disease; E11.51 Type 2 diabetes mellitus with diabetic peripheral angiopathy without gangrene; E78.5 Hyperlipidemia, unspecified; E86.0 Dehydration; E87.5 Hyperkalemia; F02.80 Dementia in other diseases classified elsewhere, unspecified severity, without behavioral disturbance, psychotic disturbance, mood disturbance, and anxiety; F17.210 Nicotine dependence, cigarettes, uncomplicated; F32.9 Major depressive disorder, single episode, unspecified; F41.9 Anxiety disorder, unspecified; G30.1 Alzheimer's disease with late onset; G47.33 Obstructive sleep apnea (adult) (pediatric); I25.2 Old myocardial infarction; K21.9 Gastro-esophageal reflux disease without esophagitis; M43.16 Spondylolisthesis, lumbar region; M51.37 Other intervertebral disc degeneration, lumbosacral region; N18.32 Chronic kidney disease, stage 3b; R29.6 Repeated falls; S09.90XA Unspecified injury of head, initial encounter; Z20.822 Contact with and (suspected) exposure to COVID-19; W01.0XXA Fall on same level from slipping, tripping and stumbling without subsequent striking against object, initial encounter; Y92.009 Unspecified place in unspecified non-institutional (private) residence as the place of occurrence of the external cause; Z79.01 Long term (current) use of anticoagulants; Z79.4 Long term (current) use of insulin; Z79.82 Long term (current) use of aspirin; Z79.899 Other long term (current) drug therapy; Z86.73 Personal history of transient ischemic attack (TIA), and cerebral infarction without residual deficits; Z95.810 Presence of automatic (implantable) cardiac defibrillator; Z98.42 Cataract extraction status, left eye; Z98.41 Cataract extraction status, right eye; Z96.1 Presence of intraocular lens; Z89.021 Acquired absence of right finger(s); R26.9 Unspecified abnormalities of gait and mobility; I08.1 Rheumatic disorders of both mitral and tricuspid valves
CPT/HCPCS: 36415; 70450; 71045; 71046; 72072; 72100; 72125; 72170; 80048; 80053; 81001; 82550; 83735; 84132; 84484; 85025; 87635; 90471; 90715; 93005; 94640; 94760; 96374; 99285

== ENCOUNTER 2020-08-25 23:04 | Inpatient (IN) | payer MEDICARE ==
[2020-08-25] MEDS ORDERED: LORazepam 2 MG/ML INJ IV STA (23:16)
[2020-08-25] MEDS ORDERED: SODIUM CHLORIDE 0.9% 1,000 ML IV STA (23:16)
[2020-08-25] MEDS ORDERED: SODIUM CHLORIDE 0.9% 1,000 ML IV ONE (23:16)
--- NOTE | 2020-08-25 23:17 | ED ---
Altered Mental Status HPI - General Chief Complaint: Altered Mental Status Stated Complaint: Altered Mental Status Time Seen by Provider: 08/25/20 23:13 Source: family, EMS Mode of arrival: EMS Limitations: no limitations - Related Data Home Medications Medication Instructions Recorded Confirmed Famotidine [Pepcid] 20 mg PO DAILY 01/16/18 08/25/20 INSULIN ASPART (NovoLOG) [NovoLOG See Protocol SQ AC-TID 01/16/18 08/25/20 (formulary)] Furosemide [Lasix] 40 mg PO Q48H 11/07/18 08/25/20 Memantine [Namenda] 10 mg PO DAILY 11/07/18 08/25/20 Cholecalciferol [Vitamin D3 (25 1,000 unit PO DAILY 12/30/18 08/25/20 Mcg = 1000 Iu)] Atorvastatin Calcium [Lipitor] 80 mg PO HS 06/16/20 08/25/20 Carvedilol [Coreg] 3.125 mg PO BID 06/16/20 08/25/20 Insulin Glargine,Hum.rec.anlog 35 unit SQ HS 06/16/20 08/25/20 [Lantus Solostar] Ranolazine [Ranolazine ER] 1,000 mg PO BID 06/16/20 08/25/20 Aspirin EC [Ecotrin Low Dose] 81 mg PO DAILY 08/14/20 08/25/20 Sennosides [Senna] 8.6 mg PO BID PRN 08/14/20 08/25/20 calcitrioL [Calcitriol] 0.25 mcg PO TH 08/14/20 08/25/20 Latanoprost/Pf [Latanoprost 0.005% 1 drop RIGHT EYE HS 08/25/20 08/25/20 Eye Drop] Omeprazole 40 mg PO DAILY 08/25/20 08/25/20 Tamsulosin HCl [Flomax] 0.4 mg PO DAILY 08/25/20 08/25/20 Previous Rx's Medication Instructions Recorded Donepezil [Aricept] 5 mg PO HS #30 tab 02/03/18 Apixaban [Eliquis] 2.5 mg PO BID #60 tablet 01/11/19 INSULIN ASPART (NovoLOG) [NovoLOG 6 unit SQ AC-TID vial 01/12/19 (formulary)] Allergies Allergy/AdvReac Type Severity Reaction Status Date / Time codeine Allergy Unknown Verified 08/14/20 06:36 [From Tylenol-Codeine #3] Review of Systems ROS Statement: Those systems with pertinent positive or pertinent negative responses have been documented in the HPI. ROS Other: All systems not noted in ROS Statement are negative. Past Medical History Past Medical History: Atrial Fibrillation, Heart Failure, COPD, CVA/TIA, Dementia, Diabetes Mellitus, GERD/Reflux, Hyperlipidemia, Hypertension, Myocardial Infarction ([place]), Renal Disease, Sleep Apnea/CPAP/BIPAP, Vascular Disorder Additional Past Medical History / Comment(s): IDDM type II, 2006 CVA-more sleepy since, seizures ruled out by [facility], DION-did not tolerate mask, chronic kidney disease stage III, peripheral vascular disease, previous history of UTI with E. 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 Mother Family Medical History: Cancer Additional Family Medical History / Comment(s): Pt/spouse do not recall type of cancer. Brother(s) Family Medical History: Cancer General Exam Limitations: no limitations Course Vital Signs 08/25/20 08/26/20 08/26/20 23:05 00:09 01:40 Temperature 98 F Pulse Rate 83 78 81 Respiratory 16 17 17 Rate Blood Pressure 125/6 115/58 111/61 O2 Sat by Pulse 99 100 99 Oximetry 08/26/20 08/26/20 03:00 04:29 Temperature Pulse Rate 74 68 Respiratory 17 16 Rate Blood Pressure 101/69 130/57 O2 Sat by Pulse 100 100 Oximetry Medical Decision Making - Lab Data Result diagrams: 08/25/20 23:58 08/25/20 23:58 Lab Results 08/25/20 08/25/20 08/25/20 Range/Units 23:10 23:58 23:58 WBC 7.7 (3.8-10.6) k/uL RBC 3.62 L (4.30-5.90) m/uL Hgb 11.3 L (13.0-17.5) gm/dL Hct 35.1 L (39.0-53.0) % MCV 97.0 (80.0-100.0) fL MCH 31.3 (25.0-35.0) pg MCHC 32.3 (31.0-37.0) g/dL RDW 14.0 (11.5-15.5) % Plt Count 320 (150-450) k/uL MPV 7.3 Neutrophils % 74 % Lymphocytes % 16 % Monocytes % 6 % Eosinophils % 2 % Basophils % 1 % Neutrophils # 5.8 (1.3-7.7) k/uL Lymphocytes # 1.3 (1.0-4.8) k/uL Monocytes # 0.4 (0-1.0) k/uL Eosinophils # 0.1 (0-0.7) k/uL Basophils # 0.0 (0-0.2) k/uL Hypochromasia Slight PT 10.9 (9.0-12.0) sec INR 1.0 (<1.2) APTT 22.3 (22.0-30.0) sec Sodium (137-145) mmol/L Potassium (3.5-5.1) mmol/L Chloride (98-107) mmol/L Carbon Dioxide (22-30) mmol/L Anion Gap mmol/L BUN (9-20) mg/dL Creatinine (0.66-1.25) mg/dL Est GFR (CKD-EPI)AfAm (>60 ml/min/1.73 sqM) Est GFR (CKD-EPI)NonAf (>60 ml/min/1.73 sqM) Glucose (74-99) mg/dL POC Glucose (mg/dL) 213 H (75-99) mg/dL POC Glu Home Health Care Worker ID Patricia Nunez Calcium (8.4-10.2) mg/dL Total Bilirubin (0.2-1.3) mg/dL AST (17-59) U/L ALT (4-49) U/L Alkaline Phosphatase (38-126) U/L Ammonia (<30) umol/L Creatine Kinase (55-170) U/L Troponin I (0.000-0.034) ng/mL Total Protein (6.3-8.2) g/dL Albumin (3.5-5.0) g/dL Urine Color Urine Appearance (Clear) Urine pH (5.0-8.0) Ur Specific [place] (1.001-1.035) Urine Protein (Negative) Urine Glucose (UA) (Negative) Urine Ketones (Negative) Urine Blood (Negative) Urine Nitrite (Negative) Urine Bilirubin (Negative) Urine Urobilinogen (<2.0) mg/dL Ur Leukocyte Esterase (Negative) Urine RBC (0-5) /hpf Urine WBC (0-5) /hpf Ur Squamous Epith Cells (0-4) /hpf Amorphous Sediment (None) /hpf Hyaline Casts (0-2) /lpf Urine Mucus (None) /hpf Salicylates mg/dL Urine Opiates Screen (NotDetected) Ur Oxycodone Screen (NotDetected) Urine Methadone Screen (NotDetected) Ur Propoxyphene Screen (NotDetected) Acetaminophen ug/mL Ur Barbiturates Screen (NotDetected) U Tricyclic Antidepress (NotDetected) Ur Phencyclidine Scrn (NotDetected) Ur Amphetamines Screen (NotDetected) U Methamphetamines Scrn (NotDetected) U Benzodiazepines Scrn (NotDetected) Urine Cocaine Screen (NotDetected) U Marijuana (THC) Screen (NotDetected) Serum Alcohol mg/dL Coronavirus (PCR) (Not Detectd) 08/25/20 08/25/20 08/25/20 Range/Units 23:58 23:58 23:58 WBC (3.8-10.6) k/uL RBC (4.30-5.90) m/uL Hgb (13.0-17.5) gm/dL Hct (39.0-53.0) % MCV (80.0-100.0) fL MCH (25.0-35.0) pg MCHC (31.0-37.0) g/dL RDW (11.5-15.5) % Plt Count (150-450) k/uL MPV Neutrophils % % Lymphocytes % % Monocytes % % Eosinophils % % Basophils % % Neutrophils # (1.3-7.7) k/uL Lymphocytes # (1.0-4.8) k/uL Monocytes # (0-1.0) k/uL Eosinophils # (0-0.7) k/uL Basophils # (0-0.2) k/uL Hypochromasia PT (9.0-12.0) sec INR (<1.2) APTT (22.0-30.0) sec Sodium 139 (137-145) mmol/L Potassium 5.9 H (3.5-5.1) mmol/L Chloride 108 H (98-107) mmol/L Carbon Dioxide 23 (22-30) mmol/L Anion Gap 8 mmol/L BUN 52 H (9-20) mg/dL Creatinine 2.46 H (0.66-1.25) mg/dL Est GFR (CKD-EPI)AfAm 28 (>60 ml/min/1.73 sqM) Est GFR (CKD-EPI)NonAf 24 (>60 ml/min/1.73 sqM) Glucose 186 H (74-99) mg/dL POC Glucose (mg/dL) (75-99) mg/dL POC Glu Home Health Care Worker ID Calcium 8.8 (8.4-10.2) mg/dL Total Bilirubin 0.3 (0.2-1.3) mg/dL AST 18 (17-59) U/L ALT 12 (4-49) U/L Alkaline Phosphatase 100 (38-126) U/L Ammonia 12 (<30) umol/L Creatine Kinase 47 L (55-170) U/L Troponin I 0.029 (0.000-0.034) ng/mL Total Protein 6.6 (6.3-8.2) g/dL Albumin 3.8 (3.5-5.0) g/dL Urine Color Urine Appearance (Clear) Urine pH (5.0-8.0) Ur Specific [place] (1.001-1.035) Urine Protein (Negative) Urine Glucose (UA) (Negative) Urine Ketones (Negative) Urine Blood (Negative) Urine Nitrite (Negative) Urine Bilirubin (Negative) Urine Urobilinogen (<2.0) mg/dL Ur Leukocyte Esterase (Negative) Urine RBC (0-5) /hpf Urine WBC (0-5) /hpf Ur Squamous Epith Cells (0-4) /hpf Amorphous Sediment (None) /hpf Hyaline Casts (0-2) /lpf Urine Mucus (None) /hpf Salicylates <1.0 mg/dL Urine Opiates Screen (NotDetected) Ur Oxycodone Screen (NotDetected) Urine Methadone Screen (NotDetected) Ur Propoxyphene Screen (NotDetected) Acetaminophen <10.0 ug/mL Ur Barbiturates Screen (NotDetected) U Tricyclic Antidepress (NotDetected) Ur Phencyclidine Scrn (NotDetected) Ur Amphetamines Screen (NotDetected) U Methamphetamines Scrn (NotDetected) U Benzodiazepines Scrn (NotDetected) Urine Cocaine Screen (NotDetected) U Marijuana (THC) Screen (NotDetected) Serum Alcohol <10 mg/dL Coronavirus (PCR) (Not Detectd) 08/26/20 08/26/20 Range/Units 01:40 04:29 WBC (3.8-10.6) k/uL RBC (4.30-5.90) m/uL Hgb (13.0-17.5) gm/dL Hct (39.0-53.0) % MCV (80.0-100.0) fL MCH (25.0-35.0) pg MCHC (31.0-37.0) g/dL RDW (11.5-15.5) % Plt Count (150-450) k/uL MPV Neutrophils % % Lymphocytes % % Monocytes % % Eosinophils % % Basophils % % Neutrophils # (1.3-7.7) k/uL Lymphocytes # (1.0-4.8) k/uL Monocytes # (0-1.0) k/uL Eosinophils # (0-0.7) k/uL Basophils # (0-0.2) k/uL Hypochromasia PT (9.0-12.0) sec INR (<1.2) APTT (22.0-30.0) sec Sodium (137-145) mmol/L Potassium (3.5-5.1) mmol/L Chloride (98-107) mmol/L Carbon Dioxide (22-30) mmol/L Anion Gap mmol/L BUN (9-20) mg/dL Creatinine (0.66-1.25) mg/dL Est GFR (CKD-EPI)AfAm (>60 ml/min/1.73 sqM) Est GFR (CKD-EPI)NonAf (>60 ml/min/1.73 sqM) Glucose (74-99) mg/dL POC Glucose (mg/dL) (75-99) mg/dL POC Glu Home Health Care Worker ID Calcium (8.4-10.2) mg/dL Total Bilirubin (0.2-1.3) mg/dL AST (17-59) U/L ALT (4-49) U/L Alkaline Phosphatase (38-126) U/L Ammonia (<30) umol/L Creatine Kinase (55-170) U/L Troponin I (0.000-0.034) ng/mL Total Protein (6.3-8.2) g/dL Albumin (3.5-5.0) g/dL Urine Color Yellow Urine Appearance Clear (Clear) Urine pH 5.5 (5.0-8.0) Ur Specific [place] 1.015 (1.001-1.035) Urine Protein 2+ H (Negative) Urine Glucose (UA) Negative (Negative) Urine Ketones Negative (Negative) Urine Blood Negative (Negative) Urine Nitrite Negative (Negative) Urine Bilirubin Negative (Negative) Urine Urobilinogen <2.0 (<2.0) mg/dL Ur Leukocyte Esterase Negative (Negative) Urine RBC 1 (0-5) /hpf Urine WBC 2 (0-5) /hpf Ur Squamous Epith Cells <1 (0-4) /hpf Amorphous Sediment Few H (None) /hpf Hyaline Casts 7 H (0-2) /lpf Urine Mucus Rare H (None) /hpf Salicylates mg/dL Urine Opiates Screen Not Detected (NotDetected) Ur Oxycodone Screen Not Detected (NotDetected) Urine Methadone Screen Not Detected (NotDetected) Ur Propoxyphene Screen Not Detected (NotDetected) Acetaminophen ug/mL Ur Barbiturates Screen Not Detected (NotDetected) U Tricyclic Antidepress Not Detected (NotDetected) Ur Phencyclidine Scrn Not Detected (NotDetected) Ur Amphetamines Screen Not Detected (NotDetected) U Methamphetamines Scrn Not Detected (NotDetected) U Benzodiazepines Scrn Not Detected (NotDetected) Urine Cocaine Screen Not Detected (NotDetected) U Marijuana (THC) Screen Not Detected (NotDetected) Serum Alcohol mg/dL Coronavirus (PCR) Not Detected (Not Detectd) Disposition Clinical Impression: Delirium due to general medical condition, Altered mental status, Generalized weakness Disposition: ADMITTED IP TO THIS HOSP Condition: Fair Is patient prescribed a controlled substance at d/c from ED?: No Referrals: Bridger Isabel MD [Primary Care Provider] - 1-2 days
[2020-08-25 23:30] LABS: Glucose,Whole Blood 213 mg/dL (75-99)
[2020-08-26 00:07] LABS: Basophils % (A) 1 %; Eosinophils # (A) 0.1 k/uL (0-0.7); Eosinophils % (A) 2 %; HCT 35.1 % (39.0-53.0); HGB 11.3 gm/dL (13.0-17.5); Hypochromasia Slight; Lymphocytes # (A) 1.3 k/uL (1.0-4.8); Lymphocytes % (A) 16 %; MCH 31.3 pg (25.0-35.0); MCHC 32.3 g/dL (31.0-37.0); Mean Platelet Volume 7.3; Monocytes # (A) 0.4 k/uL (0-1.0); Monocytes % (A) 6 %; Neutrophils # (A) 5.8 k/uL (1.3-7.7); Neutrophils % (A) 74 %; Platelet Count 320 k/uL (150-450); RBC 3.62 m/uL (4.30-5.90); WBC 7.7 k/uL (3.8-10.6)
[2020-08-26 00:15] LABS: Partial Thromboplastin Time 22.3 sec (22.0-30.0); Prothrombin Time 10.9 sec (9.0-12.0)
[2020-08-26 00:18] LABS: ALT 12 U/L (4-49); AST 18 U/L (17-59); Acetaminophen <10.0 ug/mL; African American GFR (CKD) 28 (>60 ml/min/1.73 sqM); Albumin 3.8 g/dL (3.5-5.0); Alcohol <10 mg/dL; Alkaline Phosphatase 100 U/L (38-126); Anion Gap 8 mmol/L; Blood Urea Nitrogen 52 mg/dL (9-20); Calcium 8.8 mg/dL (8.4-10.2); Carbon Dioxide 23 mmol/L (22-30); Chloride 108 mmol/L (98-107); Creatine Kinase 47 U/L (55-170); Glucose 186 mg/dL (74-99); Non-African American GFR(CKD) 24 (>60 ml/min/1.73 sqM); Potassium 5.9 mmol/L (3.5-5.1); Salicylate <1.0 mg/dL; Sodium 139 mmol/L (137-145); Total Bilirubin 0.3 mg/dL (0.2-1.3); Total Protein 6.6 g/dL (6.3-8.2)
--- NOTE | 2020-08-26 00:46 | CT ---
EXAMINATION TYPE: CT brain julee barajas con DATE OF EXAM: 08/26/2020 COMPARISON: 08/14/2020 HISTORY: Altered mental status CT DLP: mGycm Automated exposure control for dose reduction was used. Images obtained of the brain and cervical spine without contrast. There is cerebral cortical atrophy. There is large old right occipital lobe cortical infarct. There i s no mass effect nor midline shift. There is no sign of intracranial hemorrhage. The calvarium is int act. Skull base is intact. There is some straightening of the cervical spine. There is anterior subluxation of C3 in relation to C4 of 4 mm. There is disc space narrowing from C3 to T1. The facet joints are intact. There is some hypertrophic facet arthropathy at C3-4. Skull base is intact. There is normal aeration of the mastoid sinuses. IMPRESSION: Old right occipital lobe ischemic infarct without change. Cerebral atrophy. No acute intracranial abnormality. Degenerative subluxation at C3-4 without change. No fracture seen in the cervical spine.
--- NOTE | 2020-08-26 00:48 | XR ---
EXAMINATION TYPE: XR chest 1V portable DATE OF EXAM: 08/26/2020 COMPARISON: 08/15/2020 HISTORY: Altered mental status TECHNIQUE: Single view FINDINGS: There is some mild increased pulmonary interstitial density. Heart is enlarged. There is le ft axillary pacemaker. IMPRESSION: Pulmonary fibrosis. Cardiomegaly. Minimal heart failure is possible. Chest appears not si gnificantly different than recent exam.
[2020-08-26 04:52] LABS: Amorphous Sediment,Urine Few /hpf; Appearance,Urine Clear (Clear); Bilirubin,Urine Negative (Negative); Blood,Urine Negative (Negative); Color,Urine Yellow; Glucose,Urine (UA) Negative (Negative); Hyaline Casts,Urine 7 /lpf (0-2); Ketones,Urine Negative (Negative); Leukocyte Esterase,Urine Negative (Negative); Mucus,Urine Rare /hpf; Nitrite,Urine Negative (Negative); PH, Urine 5.5 (5.0-8.0); Protein,Urine 2+ (Negative); RBC,Urine 1 /hpf (0-5); Specific Gravity,Urine 1.015 (1.001-1.035); Squamous Epithelial Cell,Urine <1 /hpf (0-4); Urobilinogen,Urine <2.0 mg/dL (<2.0); WBC,Urine 2 /hpf (0-5)
[2020-08-26 04:59] LABS: Amphetamine Screen,Urine Not Detected (NotDetected); Barbiturate Screen,Urine Not Detected (NotDetected); Benzodiazepines Screen,Urine Not Detected (NotDetected); Cocaine Screen,Urine Not Detected (NotDetected); Methadone Screen, Urine Not Detected (NotDetected); Opiate Screen,Urine Not Detected (NotDetected); Oxycodone Screen, Urine Not Detected (NotDetected); Phencyclidine Screen,Urine Not Detected (NotDetected); Tricyclic Antidepressant,Urine Not Detected (NotDetected); Urn Cannabinoid Scrn Not Detected (NotDetected)
[2020-08-26] MEDS: SODIUM CHLORIDE 0.9% 1,000 ML IV SCH ×2 (07:31→17:31)
[2020-08-26] MEDS ORDERED: NON FORMULARY DRUG (Aspirin Ec 81 MG Tablet.Dr) PO SCH (10:15)
[2020-08-26] MEDS ORDERED: SODIUM POLYSTYRENE SULFONATE 15 GM/60 ML BOTTLE PO STA (10:16)
[2020-08-26 10:48] LABS: Glucose,Whole Blood 67 mg/dL (75-99)
--- NOTE | 2020-08-26 11:41 | P.CNNES ---
History of Present Illness Consult date: 08/26/20 Requesting physician: Taj Patino Reason for Consult: altered mental status History of Present Illness: This is a 75-year-old gentleman with medical history of old right occipital stroke (2006), diabetes mellitus, hyperlipidemia, heart failure s/p pacemaker, on eliquis, chronic kidney isuffiency who presented emergency department on 08/25/2020 for altered mental status and generalized weakness. History is ob tained from medical records since unable to retrieve from patient. I spoke with the patient's daughter Kristal (daughter) and his son-in law. Per the family members he has generalized weakness and has recurrent falls for the past one year. He has recurrent episodes of falls and multiple ED visits for these. He is oriented to X3. And uses a walker for the last at least one year. Per family members with these falling episodes she has generalized body weakness and he does not lose consciousness he doesn't have any urinary or bowel incontinence with these episodes. He doesn't have any foaming around the mouth or gaze deviation to one side. He doesn't have any history of seizures. The patient provides care for him and the per the daughter and her she stated that at sometimes he gets too much for her. Patient does follow up with a neurologist as outpatient but that it'll recall the name. Per the patient nurse he has not had any seizure-like activity since the patient has been the hospital. He was agitated overnight and received 2mg of Ativan in the ED. Some of the patient's home medication includes Eliquis 2.5 mg twice a day, aspirin 81 mg, Aricept 5 mg, memantine 10 mg daily, Lipitor 80 mg daily at bedtime, insulin. Per the patient's family members they were told that the patient does not have history of dementia and are not sure why he is on Aricept and Memantine. Some other workup in the hospital consisted of: Initial vital signs: blood pressure that was repeatable at the beginning was 115/58, heart rates is 78, respiratory of 17, initial temperature was 98F oral, pulse ox of 100% on 2 L of nasal cannula on presentation was 99% at room air. CT of the head is reported as old right occipital lobe ischemic infarct without change. Cerebral atrophy. No acute intracranial abnormality. Upon reviewing reports from CT brain of 2018 it was reported he had this right occipital stroke even at that time. CT cervical as reported as degenerative subluxation at 3 C4 without change. No fracture seen in the cervical spine. I felt he had cervical spondylosis over C6-C7. EKG is reported as sinus rhythm with short HI with fusion complexes. Right bund le branch block. Left anterior fascicular block. Bifascicular block. Cannot rule out anteroseptal infarct, age undetermined. Abnormal EKG. White blood cell on presentation 7.7 which is normal. Hemoglobin is 11.3 which is a mildly low. Sodium is 139 which is normal, glucose is on presentation is 186 and serum, POC glucose is 213 which is slightly elevated. AST of 18, ALT of 12 and ammonia is 12 which is normal. The BUN is 52 and a creatinine is 2.46 This the patient was agitated overnight the patient received 2 mg of Ativan around 2347. Review of Systems Review of systems Limited but the prone positive and negative as per HPI. Past Medical History Past Medical History: Atrial Fibrillation, Heart Failure, COPD, CVA/TIA, Dementia, Diabetes Mellitus, GERD/Reflux, Hyperlipidemia, Hypertension, Myocardial Infarction ([place]), Renal Disease, Sleep Apnea/CPAP/BIPAP, Vascular Disorder Additional Past Medical History / Comment(s): IDDM type II, 2006 CVA-more sleepy since, seizures ruled out by [facility], DION-did not tolerate mask, chronic kidney disease stage III, peripheral vascular disease, previous history of UTI with E. 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 Mother Family Medical History: Cancer Additional Family Medical History / Comment(s): Pt/spouse do not recall type of cancer. Brother(s) Family Medical History: Cancer Medications and Allergies Home Medications Medication Instructions Recorded Confirmed Type Famotidine [Pepcid] 20 mg PO DAILY 01/16/18 08/25/20 History INSULIN ASPART (NovoLOG) [NovoLOG See Protocol SQ AC-TID 01/16/18 08/25/20 History (formulary)] Donepezil [Aricept] 5 mg PO HS #30 tab 02/03/18 08/25/20 Rx Furosemide [Lasix] 40 mg PO Q48H 11/07/18 08/25/20 History Memantine [Namenda] 10 mg PO DAILY 11/07/18 08/25/20 History Cholecalciferol [Vitamin D3 (25 1,000 unit PO DAILY 12/30/18 08/25/20 History Mcg = 1000 Iu)] Apixaban [Eliquis] 2.5 mg PO BID #60 tablet 01/11/19 08/25/20 Rx INSULIN ASPART (NovoLOG) [NovoLOG 6 unit SQ AC-TID vial 01/12/19 08/25/20 Rx (formulary)] Atorvastatin Calcium [Lipitor] 80 mg PO HS 06/16/20 08/25/20 History Carvedilol [Coreg] 3.125 mg PO BID 06/16/20 08/25/20 History Insulin Glargine,Hum.rec.anlog 35 unit SQ HS 06/16/20 08/25/20 History [Lantus Solostar] Ranolazine [Ranolazine ER] 1,000 mg PO BID 06/16/20 08/25/20 History Aspirin EC [Ecotrin Low Dose] 81 mg PO DAILY 08/14/20 08/25/20 History Sennosides [Senna] 8.6 mg PO BID PRN 08/14/20 08/25/20 History calcitrioL [Calcitriol] 0.25 mcg PO TH 08/14/20 08/25/20 History Latanoprost/Pf [Latanoprost 0.005% 1 drop RIGHT EYE HS 08/25/20 08/25/20 History Eye Drop] Omeprazole 40 mg PO DAILY 08/25/20 08/25/20 History Tamsulosin HCl [Flomax] 0.4 mg PO DAILY 08/25/20 08/25/20 History Allergies Allergy/AdvReac Type Severity Reaction Status Date / Time codeine Allergy Unknown Verified 08/14/20 06:36 [From Tylenol-Codeine #3] Physical Examination - Vital Signs Vital Signs: Vital Signs Temp Pulse Resp BP Pulse Ox 08/26/20 08:54 70 20 128/50 97 08/26/20 07:28 98.5 F 70 20 121/82 97 08/26/20 06:02 70 16 120/57 100 08/26/20 05:58 69 17 130/57 100 08/26/20 05:11 79 16 120/87 100 08/26/20 05:02 71 16 130/58 100 08/26/20 04:29 68 16 130/57 100 08/26/20 03:00 74 17 101/69 100 08/26/20 01:40 81 17 111/61 99 08/26/20 00:09 78 17 115/58 100 08/25/20 23:05 98 F 83 16 125/6 99 Intake and Output 08/25/20 08/26/20 08/26/20 22:59 06:59 14:59 Other: Weight 83.007 kg GENERAL: The patient is lying in bed and does not seem in acute pain. CHEST: The heart rate is regular rate rhythm. No murmurs to auscultation. No carotid bruit bilaterally. LUNG: Clear to auscultation bilaterally no wheezing noted throughout. Not labored breathing. ABDOMEN/GI: Bowel sounds present in all 4 quadrants. No tenderness to palpation throughout. NEUROLOGICAL: Higher mental function: The patient is drowsy but is awakeable to voice. Is oriented to self. Initially he stated he was at home but on second try he said he was in the hospital but could not tell me name of hospital. Patient is following few simple commands. Showed thumbs up to command. No neglect. Cranial nerves: The pupils are round, equal and reactive to light. Could not assess visual dia or EOM because of his condition (was sleepy). No facial weakness. No dysarthria is noted from limited language. Rest of cranial nerves could not be assessed because of his condition. Motor: The strength is moving all extremities above gravity without drift and had good hand skin washer bilaterally. Is bending both knees and withdrew bilaterally to pain on the lower extremities. Normal tone and bulk. Cerebellum: Could not assess. Sensation: Could not assess. Reflexes (right/left): 2+ throughout Upper while 1+ in lowers. Plantars are downgoing bilaterally. Results Urinalysis is negative for urinary tract infection. Urine drug screen the basic workup as nondetected the. Serum alcohol was less than 10, seated within less than 10 and the salicylates is less than 1.0. Reza virus PCR was not detected. - Laboratory Findings CBC and BMP: 08/25/20 23:58 08/25/20 23:58 Abnormal Lab Findings: Abnormal Labs 08/25/20 08/25/20 08/25/20 23:10 23:58 23:58 RBC 3.62 L Hgb 11.3 L Hct 35.1 L Potassium 5.9 H Chloride 108 H BUN 52 H Creatinine 2.46 H Glucose 186 H POC Glucose (mg/dL) 213 H Creatine Kinase 47 L Urine Protein Amorphous Sediment Hyaline Casts Urine Mucus 08/26/20 04:29 RBC Hgb Hct Potassium Chloride BUN Creatinine Glucose POC Glucose (mg/dL) Creatine Kinase Urine Protein 2+ H Amorphous Sediment Few H Hyaline Casts 7 H Urine Mucus Rare H Assessment and Plan Assessment: Generalized body weakness with recurrent falls with reported altered mental status . Possibly metabolic encephalopathy. Also due to medication effect (Ativan in the hospital) Recurrent falls. Rule out diabetic neuropathy as cause. Per family members no hx of seizure and no loss of consciousness with these episodes. Old right occipital stroke (2006) Cervical spondylosis (C3-C4 and C6-C7) Acute on chronic renal failure Slight elevated sugar with history of diabetes mellitus Hyperlipidemia History of heart failure s/p pacemaker Plan: * CT of the head is reported as old right occipital lobe ischemic infarct without change. Cerebral atrophy. No acute intracranial abnormality. Upon reviewing reports from CT brain of 2018 it was reported he had this right occipital stroke even at that time. * CT cervical as reported as degenerative subluxation at 3 C4 without change. No fracture seen in the cervical spine. I felt he had cervical spondylosis over C6-C7. * AST of 18, ALT of 12 and ammonia is 12 which is normal. * Lipid panel is ordered by the ED team and is pending. * I restarted the patient home medication of ASA 81mg and Lipitor 80mg qhs. * I ordered a TSH, vitamin B12, folate level and HbA1c. * Ordered orthostatic vitals. * Recommend 2D echo and carotid duplex. * He had multiple EEG in our facility and on last EEG no seizure seen that is reported and per family no history of seizures. If patient condition does not improve I will consider repeat EEG. * PT, OT and BUSINESS ANALYTICS FACULTY MEMBER are consulted. * Please avoid any sedation/narcotic that would affect neurological examination. The patient is on Ativan 1 mg every 4 hours as needed. For agitation can consider sacral 25 mg daily at bedtime and if it's the higher dose as needed can do 25 mg 1 tablet twice a day. * I recommend that patient to receive 24 hour home care (per family wishes). * Upon discharge the patient needs to follow-up with his neurologist as outpatient within 1-2 weeks. I spoke with patient's daughter (Kristal) and her . The plan is discussed with the patient's nurse. Thank you for the consultation. Virgilio Jung MD Neuro-Hospitalist Time with Patient: Greater than 30
[2020-08-26 12:37] LABS: Glucose,Whole Blood 87 mg/dL (75-99)
[2020-08-26] MEDS: MEMANTINE 10 MG TAB PO SCH (12:43)
[2020-08-26] MEDS: carvediloL 3.125 MG TAB PO SCH ×2 (12:43→17:30)
[2020-08-26] MEDS: TAMSULOSIN 0.4 MG CAP.ER.24H PO SCH (12:43)
[2020-08-26] MEDS: SENNOSIDES 8.6 MG TAB PO PRN (12:43)
[2020-08-26] MEDS: RANOLAZINE 500 MG TAB.ER.12H PO SCH ×2 (12:43→22:17)
[2020-08-26] MEDS: ASPIRIN 81 MG PO SCH (12:43)
[2020-08-26] MEDS: APIXABAN 2.5 MG TABLET PO SCH ×2 (12:43→22:17)
[2020-08-26] MEDS: PANTOPRAZOLE 40 MG TABLET PO SCH (12:43)
[2020-08-26] MEDS: INSULIN ASPART (NovoLOG) 100 UNIT/ML VIAL SQ SCH ×5 (12:44→21:11)
[2020-08-26 13:02] LABS: Calcium 8.4 mg/dL (8.4-10.2); Potassium 5.9 mmol/L (3.5-5.1)
--- NOTE | 2020-08-26 15:32 | P.HPIM ---
History of Present Illness H&P Date: 08/26/20 Chief Complaint: Weakness with altered sensorium History of presenting complaint: This is a 75-year-old male with complex past medical history noted below significant for prior stroke and underlying dementia. Chronic stable medical conditions include atrial fibrillation, COPD, moderate cognitive impairment, diabetes, GERD, hyperlipidemia, hypertension, chronic kidney disease. Patient recently in the hospital from August 14 through August 16. Found to be orthostatic. [place] to be from autonomic dysfunction from underlying diabetes. Also had a pacemaker check. Patient recently had a generator change on August 02 with History obtained by the at the bedside. Patient and had gone out for a meal yesterday. When they came back to the car patient felt rather dizzy tired thought he may be blanking out. No chest pain or palpitation. Follows feeling rather tired and rundown. Patient is brought into the ER last night. When the EMS arrived patient not able to answer any questions. Patient is very confused. Unable to follow simple commands. The behavior was described from being aggressive combative crying and scared. The patient is moving all extremities. Patient last received some Ativan. And this morning when I saw the patient patient rather sleepy. Barely arousable. No fever reported. Review of systems: Cannot be obtained as patient is SLEEPY/drowsy Past medical history to include: Stroke, dementia, atrial fibrillation, COPD, moderate cognitive impairment, diabetes, GERD, hyperlipidemia, hypertension, chronic kidney disease, gait dysfunction uses a walker, pacemaker Social history: . Private hire help starting last week. Walker, and a Wheelchair. Patient been smoking for over 60 years. Down to a pack a day from 2 packs a day. On examination: VITAL SIGNS: 98, 83, 16, 125/68, 99% on room air-upon presentation GENERAL APPEARANCE: BMI 26.3, reclining in bed, lethargic HEENT: Normal external appearance of nose and ear. Oral cavity normal EYES: Pupils equal. Conjunctiva normal. NECK: JVD unable to assess Mass not palpable. RESPIRATORY: Respiratory effort increased Decreased breath sounds. CARDIOVASCULAR: First and second sounds normal. No edema. ABDOMEN: Soft. Liver and spleen not palpable. No tenderness. No mass palpable. PSYCHIATRY: Unable to assess NEUROLOGICAL: Cranial nerves grossly intact. Unable to assess further LYMPHATICS: No lymph nodes palpable in neck and axilla INVESTIGATIONS, reviewed in the clinical context: WBC 7.7 hemoglobin 11.3 platelets 320 potassium 5.9 bun 52 creatinine 2.46 glucose 186 UA positive for protein 2+ amorphous sediment few Urine drug screen negative Coronavirus [PCL]-not detected EKG tracing personally reviewed by me-right bundle branch block pattern, paced rhythm Chest x-ray film personally reviewed by me-[portable] cardiomegaly, AICD, underpenetrated film. Questionable venous prominence Assessment and plan: -Acute change in sensorium with agitated aggressive behavior. Appears to be acute delirium. This in the setting of known dementia. Could be a brief psychosis. No obvious evidence of any infection. Before that his electrolyte abnormalities including hyperkalemia. - orthostatic hypertension, likely from autonomic dysfunction from diabetes Bilateral CHARLIE stockings. Fall precautions. -Persistent atrial fibrillation Paced rhythm. On eliquis -COPD in a current smoker, symptoms controlled DuoNeb -Chronic nicotine dependence patient cigarette smoker Nicotine patch -Moderate cognitive impairment from late onset Alzheimer's dementia -Diabetes mellitus type 2 On Levemir. 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 Lasix. Kayexalate. -Obstructive sleep apnea, unable to wear a mask -Peripheral arterial disease On aspirin, Lipitor -Permanent pacemaker with generator change in August 02-2020 Pacemaker check done recently -Chronic gait dysfunction, and a baseline patient uses a walker Home medications resumed. Fall precautions. Follow Accu-Cheks. Doesn't Levemir cutback. Hydrate the patient. Consultation made to psychiatry. And neurology. Care was discussed at length with the at the bedside. Telemetry. Given the complexity and severity of patient's condition expect the patient to be in the hospital at least for 2 overnights Past Medical History Past Medical History: Atrial Fibrillation, Heart Failure, COPD, CVA/TIA, Dementia, Diabetes Mellitus, GERD/Reflux, Hyperlipidemia, Hypertension, Myocardial Infarction ([place]), Renal Disease, Sleep Apnea/CPAP/BIPAP, Vascular Disorder Additional Past Medical History / Comment(s): IDDM type II, 2007 CVA-more sleepy since, seizures ruled out by [facility], DION-did not tolerate mask, chronic kidney disease stage III, peripheral vascular disease, previous history of UTI with E. 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 Mother Family Medical History: Cancer Additional Family Medical History / Comment(s): Pt/spouse do not recall type of cancer. Brother(s) Family Medical History: Cancer Medications and Allergies Home Medications Medication Instructions Recorded Confirmed Type Famotidine [Pepcid] 20 mg PO DAILY 01/16/18 08/25/20 History INSULIN ASPART (NovoLOG) [NovoLOG See Protocol SQ AC-TID 01/16/18 08/25/20 History (formulary)] Donepezil [Aricept] 5 mg PO HS #30 tab 02/03/18 08/25/20 Rx Furosemide [Lasix] 40 mg PO Q48H 11/07/18 08/25/20 History Memantine [Namenda] 10 mg PO DAILY 11/07/18 08/25/20 History Cholecalciferol [Vitamin D3 (25 1,000 unit PO DAILY 12/30/18 08/25/20 History Mcg = 1000 Iu)] Apixaban [Eliquis] 2.5 mg PO BID #60 tablet 01/11/19 08/25/20 Rx INSULIN ASPART (NovoLOG) [NovoLOG 6 unit SQ AC-TID vial 01/12/19 08/25/20 Rx (formulary)] Atorvastatin Calcium [Lipitor] 80 mg PO HS 06/16/20 08/25/20 History Carvedilol [Coreg] 3.125 mg PO BID 06/16/20 08/25/20 History Insulin Glargine,Hum.rec.anlog 35 unit SQ HS 06/16/20 08/25/20 History [Lantus Solostar] Ranolazine [Ranolazine ER] 1,000 mg PO BID 06/16/20 08/25/20 History Aspirin EC [Ecotrin Low Dose] 81 mg PO DAILY 08/14/20 08/25/20 History Sennosides [Senna] 8.6 mg PO BID PRN 08/14/20 08/25/20 History calcitrioL [Calcitriol] 0.25 mcg PO TH 08/14/20 08/25/20 History Latanoprost/Pf [Latanoprost 0.005% 1 drop RIGHT EYE HS 08/25/20 08/25/20 History Eye Drop] Omeprazole 40 mg PO DAILY 08/25/20 08/25/20 History Tamsulosin HCl [Flomax] 0.4 mg PO DAILY 08/25/20 08/25/20 History Allergies Allergy/AdvReac Type Severity Reaction Status Date / Time codeine Allergy Unknown Verified 08/14/20 06:36 [From Tylenol-Codeine #3] Physical Exam Vitals: Vital Signs Temp Pulse Resp BP Pulse Ox 08/26/20 10:10 70 20 130/58 96 08/26/20 08:54 70 20 128/50 97 08/26/20 07:28 98.5 F 70 20 121/82 97 08/26/20 06:02 70 16 120/57 100 08/26/20 05:58 69 17 130/57 100 08/26/20 05:11 79 16 120/87 100 08/26/20 05:02 71 16 130/58 100 08/26/20 04:29 68 16 130/57 100 08/26/20 03:00 74 17 101/69 100 08/26/20 01:40 81 17 111/61 99 08/26/20 00:09 78 17 115/58 100 08/25/20 23:05 98 F 83 16 125/6 99 Intake and Output 08/25/20 08/26/20 08/26/20 22:59 06:59 14:59 Other: Weight 83.007 kg Results CBC & Chem 7: 08/25/20 23:58 08/26/20 11:54 Labs: Abnormal Lab Results - Last 24 Hours (Table) 08/25/20 08/25/20 08/25/20 Range/Units 23:10 23:58 23:58 RBC 3.62 L (4.30-5.90) m/uL Hgb 11.3 L (13.0-17.5) gm/dL Hct 35.1 L (39.0-53.0) % Potassium 5.9 H (3.5-5.1) mmol/L Chloride 108 H (98-107) mmol/L BUN 52 H (9-20) mg/dL Creatinine 2.46 H (0.66-1.25) mg/dL Glucose 186 H (74-99) mg/dL POC Glucose (mg/dL) 213 H (75-99) mg/dL Creatine Kinase 47 L (55-170) U/L Urine Protein (Negative) Amorphous Sediment (None) /hpf Hyaline Casts (0-2) /lpf Urine Mucus (None) /hpf 08/26/20 Range/Units 04:29 RBC (4.30-5.90) m/uL Hgb (13.0-17.5) gm/dL Hct (39.0-53.0) % Potassium (3.5-5.1) mmol/L Chloride (98-107) mmol/L BUN (9-20) mg/dL Creatinine (0.66-1.25) mg/dL Glucose (74-99) mg/dL POC Glucose (mg/dL) (75-99) mg/dL Creatine Kinase (55-170) U/L Urine Protein 2+ H (Negative) Amorphous Sediment Few H (None) /hpf Hyaline Casts 7 H (0-2) /lpf Urine Mucus Rare H (None) /hpf
--- NOTE | 2020-08-26 16:37 | US ---
EXAMINATION TYPE: US carotid duplex BILAT DATE OF EXAM: 08/26/2020 COMPARISON: US 2018 CLINICAL HISTORY: altered mentation. Hx of stroke. EXAM MEASUREMENTS: RIGHT: Peak Systolic Velocity (PSV) cm/sec ----- Right CCA: 62.2 ----- Right ICA: 80.9 ----- Right ECA: 79.3 ICA/CCA ratio: 1.3 RIGHT: End Diastole cm/sec ----- Right CCA: 9.5 ----- Right ICA: 14.9 ----- Right ECA: 10.7 Left carotid system could not be imaged. The patient had technical difficulties as described below by chemical engineering technologist Left carotid: not imaged due to patient's head tilted to the left side and unable to reposition Right carotid: No evidence of hemodynamically significant stenosis IMPRESSION: 1. The left carotid system was not imaged. Patient was unable to change position of head according to chemical engineering technologist. 2. There is mild to moderate atherosclerotic plaque at the right common carotid artery bifurcation. M ild atherosclerotic plaque at the right internal carotid artery. Findings are suggestive of less than 50% stenosis of the right internal carotid artery. No evidence of hemodynamically significant stenos is. Criteria for Assigning % of Stenosis / Diameter reduction (Estimation based on the indirect measurements of the internal carotid artery velocities (ICA PSV). 1. Normal (no stenosis)=ICA PSV < 125 cm/s: ratio < 2.0: ICA EDV<40 cm/s. 2. Less than 50% stenosis=ICA PSV < 125 cm/s: ratio < 2.0: ICA EDV<40 cm/s. 3. 50 to 69% stenosis=ICA PSV of 125 to 230 cm/s: ration 2.0 ? 4.0: ICA EDV 40-100 cm/s. 4. Greater than 70% stenosis to near occlusion= ICA PSV > 230 cm/s: ratio > 4.0: ICA EDV > 100 cm/s. 5. Near occlusion= ICA PSV velocities may be low or undetectable: variable ratio and ICA EDV. 6. Total occlusion=unable to detect flow.
[2020-08-26 17:29] LABS: Glucose,Whole Blood 65 mg/dL (75-99)
--- NOTE | 2020-08-26 17:31 | ECHOF ---
Referral Reason:heart failure with weakness MEASUREMENTS -------- HEIGHT: 177.8 cm WEIGHT: 83.0 kg BP: 129/64 TR Vmax: 3.16 m/s TR maxP.84 mmHg RAP: 5.00 mmHg RVSP: 44.84 mmHg FINDINGS -------- Limited Study Overall left ventricular systolic function is moderate-severely impaired with, an EF between 30 - 35 %. Basal posterior LV wall motion is hypokinetic. Basal inferior LV wall motion is hypokinetic. Mid posterior LV wall motion is hypokinetic. Mid inferior LV wall motion is hypokinetic. Api azam lateral LV wall motion is hypokinetic. Apical inferior LV wall motion is hypokinetic. Apica l septum LV wall motion is hypokinetic. Mild tricuspid regurgitation present. There is mild pulmonary hypertension. The right ventricular systolic pressure, as measured by Doppler, is 44.84mmHg. There is no pericardial effusion. CONCLUSIONS -------- 1. Limited Study 2. Overall left ventricular systolic function is moderate-severely impaired with, an EF between 30 - 35 %. 3. Basal posterior LV wall motion is hypokinetic. 4. Basal inferior LV wall motion is hypokinetic. 5. Mid posterior LV wall motion is hypokinetic. 6. Mid inferior LV wall motion is hypokinetic. 7. Apical lateral LV wall motion is hypokinetic. 8. Apical inferior LV wall motion is hypokinetic. 9. Apical septum LV wall motion is hypokinetic. 10. Mild tricuspid regurgitation present. 11. There is mild pulmonary hypertension. 12. The right ventricular systolic pressure, as measured by Doppler, is 44.84mmHg. 13. There is no pericardial effusion. CAT SWAMPER: Sarika Elliott RD
[2020-08-26 17:56] LABS: Glucose,Whole Blood 71 mg/dL (75-99)
[2020-08-26 18:09] LABS: Glucose,Whole Blood 93 mg/dL (75-99)
--- NOTE | 2020-08-26 18:41 | CONS ---
CONSULTATION DATE OF SERVICE: 08/26/2020 PURPOSE FOR CONSULTATION: Evaluate for agitation. HISTORY OF PRESENTING ILLNESS: The patient is a 75-year-old male with a complex medical history significant for a prior stroke and underlying dementia. I saw the patient in a holding bed in ED. His was with him. He was awake though not very alert. His provided all of the history. She notes that he suffered a CVA about 13 years ago. She said the aftereffect of that was that he would go 3-4 days where he would sleep excessively and then would have some days where he would be back to normal sleep and then it would go back and forth. He would have some episodes of confusion. He was able to gradually get to a point where he was functioning adequately on a day-to-day basis. He started having a downturn in the last few months. His noted that about one month ago she had some medical issues herself and he needed 24 hours of care. The report she got is that during one month he had sexualized behavior, which was very unusual for him. In the last two days prior to his current situation he was in a very calm and pleasant state without any unusual or abnormal behavior. She did note that back at the time that he had his CVA he also had some episode of sexualized behavior, though that seemed to dissipate. He has not clearly had a significant history of psychiatric problems in the past though has tended to have some issues of discouragement, which she felt relates mainly to some of the disabling effects of the stroke. He had been on Pristiq, though she did not feel that was very helpful of late. He was having increasing problems with physical function and was unsteady on his feet. What precipitated his coming to the hospital was that he was not able to stand up. He was making nonsense statements and was incoherent. That then progressed to him becoming agitated at the time that he came to the hospital. He received Ativan for his agitation, with his last dose 2 mg IV at 2347 hours on August 25. Since that time the patient has been noted to be fairly somnolent. He will wake some, though has been in a quiet mood. He has not been able to communicate. Much of the time when I interviewed his , the patient lay with his eyes closed; every once a while he would open his eyes. He moved a little bit when I talked to him at different times. When he did open his eyes, he did not make an effort to answer questions. ASSESSMENT: This 75-year-old male is diagnosed with altered mental status, possibly related to metabolic encephalopathy. In regard to episodes of agitation, it would be best if he were tried on Haldol with doses of 2 to 5 mg, which can be administered IV. Haldol would be a better choice than Ativan, given that it would have less likelihood of interfering with cognition or undue somnolence. I will write an order for Haldol 2 mg IV to be given q.i.d. It can be repeated in 30 minutes for continued agitation. At this point I will leave the order for Ativan [address], though I recommend a trial Haldol first if indicated. Staff may contact me at any time if the patient has further significant episodes of agitation that are not responding to urgent treatment. I will continue to follow. KARLA / IMMANUEL: [id number] /
[2020-08-26] MEDS: HALOPERIDOL LACTATE 5 MG/ML 1 ML VIAL IVP SCH (18:52)
[2020-08-26 19:50] LABS: Folate, Serum 12.1 ng/mL
[2020-08-26 20:05] LABS: Glucose,Whole Blood 78 mg/dL (75-99)
[2020-08-26] MEDS ORDERED: DONEPEZIL 5 MG TAB PO SCH (21:00)
[2020-08-26] MEDS: INSULIN DETEMIR (LEVEMIR) 100 UNIT/ML SYR SQ SCH (21:11)
[2020-08-26] MEDS: ATORVASTATIN 80 MG TAB PO SCH (21:11)
[2020-08-26] MEDS: LATANOPROST 0.005% OPHTH DROPS 2.5 ML BTL RIGHT EYE SCH (21:11)
[2020-08-26 22:13] LABS: Hemoglobin A1C 7.1 % (4.0-6.0)
[2020-08-27 01:04] LABS: Glucose,Whole Blood 61 mg/dL (75-99)
[2020-08-27] MEDS: HALOPERIDOL LACTATE 5 MG/ML 1 ML VIAL IVP SCH ×3 (01:04→12:54)
[2020-08-27] MEDS ORDERED: DEXTROSE 50% SYRINGE 50 ML IVP ONE (01:06)
[2020-08-27 01:27] LABS: Glucose,Whole Blood 133 mg/dL (75-99)
[2020-08-27] MEDS: SODIUM CHLORIDE 0.9% 1,000 ML IV SCH ×2 (05:17→12:53)
[2020-08-27] MEDS: INSULIN ASPART (NovoLOG) 100 UNIT/ML VIAL SQ SCH ×7 (05:27→20:19)
[2020-08-27 06:13] LABS: Glucose,Whole Blood 92 mg/dL (75-99)
[2020-08-27] MEDS: carvediloL 3.125 MG TAB PO SCH ×2 (06:57→17:49)
[2020-08-27] MEDS: PANTOPRAZOLE 40 MG TABLET PO SCH (06:57)
[2020-08-27 08:10] LABS: Calcium 8.6 mg/dL (8.4-10.2); Potassium 4.9 mmol/L (3.5-5.1)
[2020-08-27] MEDS: ASPIRIN 81 MG PO SCH (09:23)
[2020-08-27] MEDS: RANOLAZINE 500 MG TAB.ER.12H PO SCH ×2 (09:24→20:19)
[2020-08-27] MEDS: APIXABAN 2.5 MG TABLET PO SCH ×2 (09:25→20:19)
[2020-08-27] MEDS: CHOLECALCIFEROL 25 MCG (1000 IU) TABLET PO SCH (09:25)
[2020-08-27] MEDS: MEMANTINE 10 MG TAB PO SCH (09:25)
[2020-08-27] MEDS: TAMSULOSIN 0.4 MG CAP.ER.24H PO SCH (09:25)
[2020-08-27 12:00] LABS: Glucose,Whole Blood 138 mg/dL (75-99)
--- NOTE | 2020-08-27 14:32 | P.PN ---
Subjective Progress Note Date: 08/27/20 The patient was seen at bedside and per the nurse, his mentation has improved from yesterday but continues to be off. The patient has POC glucose overnight of 61. Per the patient the patient had basilar artery stroke and had work-up and has seen different neurologist in the past. She said that he seem to be doing better today and almost back to baseline. Objective - Vital Signs Vital signs: Vital Signs Temp 97.4 F L 08/27/20 09:20 Pulse 69 08/27/20 11:20 Resp 16 08/27/20 11:20 BP 121/65 08/27/20 11:20 Pulse Ox 95 08/27/20 11:20 Intake & Output 08/26/20 08/27/20 08/27/20 18:59 06:59 18:59 Intake Total 600 Balance 600 Weight 83.007 kg 82.5 kg Intake: Intake, IV Titration 600 Amount Sodium Chloride 0.9% 1, 600 000 ml @ 100 mls/hr IV . Q10H [facility] Rx#:[id number] Other: Voiding Method Diaper Diaper Diaper # Voids 2 - Exam GENERAL: The patient is lying in bed and does not seem in acute pain. NEUROLOGICAL: Higher mental function: The patient is intermittently sleep but is awakeable to voice. Is oriented to self and place. Said he does not know year or moth (per that is normal but sometimes but would know). Is able to identify objects such as pen and watch. Patient is following simple commands. No aphasia or neglect. Cranial nerves: The pupils are round, equal and reactive to light. Visual field are full to confrontation. EOM intact and no nystagmus in any direction. No facial weakness. No dysarthria is noted from limited language. Motor: Gait is deferred. The strength is moving all extremities above gravity without drift and had good hand windows desktop engineer bilaterally. The strength in upper are 5/5 while lowers has 5-/5 bilaterally. Normal tone and bulk. Sensation: Normal to touch throughout. Reflexes (right/left): 2+ throughout Upper while 1+ in lowers. Plantars are downgoing bilaterally. - Labs CBC & Chem 7: 08/25/20 23:58 08/27/20 06:48 Labs: Abnormal Lab Results - Last 24 Hours (Table) 08/26/20 08/26/20 08/26/20 Range/Units 11:54 17:26 17:43 Chloride (98-107) mmol/L Carbon Dioxide (22-30) mmol/L BUN (9-20) mg/dL Creatinine (0.66-1.25) mg/dL POC Glucose (mg/dL) 65 L 71 L (75-99) mg/dL Hemoglobin A1c 7.1 H (4.0-6.0) % 08/27/20 08/27/20 08/27/20 Range/Units 01:03 01:25 06:48 Chloride 113 H (98-107) mmol/L Carbon Dioxide 21 L (22-30) mmol/L BUN 44 H (9-20) mg/dL Creatinine 2.24 H (0.66-1.25) mg/dL POC Glucose (mg/dL) 61 L 133 H (75-99) mg/dL Hemoglobin A1c (4.0-6.0) % 08/27/20 Range/Units 11:58 Chloride (98-107) mmol/L Carbon Dioxide (22-30) mmol/L BUN (9-20) mg/dL Creatinine (0.66-1.25) mg/dL POC Glucose (mg/dL) 138 H (75-99) mg/dL Hemoglobin A1c (4.0-6.0) % Assessment and Plan Assessment: Generalized body weakness with recurrent falls with reported altered mental status . Possibly metabolic encephalopathy. Also due to medication effect (Ativan in the hospital)--mentation improving (per ) Recurrent falls. Rule out diabetic neuropathy as cause. Per family members no hx of seizure and no loss of consciousness with these episodes. 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 Per he had brainstem stroke. Cervical spondylosis (C3-C4 and C6-C7) Low vitamin B12 Episode of hypoglycemia during hospital stay Acute on chronic renal failure Slight elevated sugar with history of diabetes mellitus Hyperlipidemia History of heart failure s/p pacemaker Plan: * CT of the head is reported as old right occipital lobe ischemic infarct without change. Cerebral atrophy. No acute intracranial abnormality. Upon reviewing reports from CT brain of 2018 it was reported he had this right occipital stroke even at that time. * CT cervical as reported as degenerative subluxation at 3 C4 without change. No fracture seen in the cervical spine. I felt he had cervical spondylosis over C6-C7. * AST of 18, ALT of 12 and ammonia is 12 which is normal. * Vitamin B12: 361 (low normal). * Serum Folate is 12.1 (normal). TSH: 0.528 (normal). * HbA1c: 7.1 (elevated) * Patient had glucose level as low as 61 overnight. * 2D echo limited: Limited study. EF of 30-35%. Basal posterior/inferior and mild posterior/inferior and apical inferior/lateral and septum LV wall motion are hypokietic * Limited Orthostatic: Supine BP 121/65 with HR 69 and sitting BP 138/77 with HR 70. Which is negative from limited study. * Ordered routine EEG. Will not start the patient on anti-epileptic drug unless there is epileptiform discharges or seizure on the EEG. * I started the patient on Vitamin B12 1000mcg daily since Vitamin B12 is low normal. * Continue home medication of ASA 81mg and Lipitor 80mg qhs. * PT, OT and SENIOR CORPORATE STRATEGY MANAGER are consulted. * Please avoid hypoglycemic event and will defer management to the primary team. * Please avoid any sedation/narcotics that would affect neurological examination. * I recommend that patient to receive 24 hour home care (per family wishes). * Upon discharge the patient needs to follow-up with his neurologist as o utpatient within 1-2 weeks. I spoke with patient's daughter (Kristal) and her via phone on 08/26/20 and his (who is at bedside) on 08/27 Virgilio Jung MD Neuro-Hospitalist Time with Patient: Less than 30
[2020-08-27 14:55] LABS: Chol/HDL Ratio 4.14
--- NOTE | 2020-08-27 15:40 | EEG ---
ELECTROENCEPHALOGRAM REPORT DATE OF SERVICE: 08/27/2020. CLINICAL HISTORY: This is a 75-year-old gentleman who presented to the hospital with altered mental status. This video EEG is obtained to evaluate for seizure or epileptiform activity. RELEVANT MEDICATION: The patient is not on any antiepileptic drugs. EEG TYPE: A routine 21 channel EEG is performed with video using the 10/20 electrode placement system. DESCRIPTION: Wakefulness, drowsiness and sleep are obtained. During wakefulness, there is a posterior dominant rhythm of low to moderate voltage of 6.5-7 hertz. During drowsiness, there is slowing and attenuation of background activity. During stage 2 sleep, there are sleep spindles and K complexes. There is no focal slowing. Interictal and ictal is none. ACTIVATION PROCEDURE: Photic stimulation did not evoke a positive driving response. There is no abnormality during photic stimulation. Hyperventilation is not performed. CLINICAL INTERPRETATION: This is an abnormal routine EEG. The background slowing is suggestive of mild encephalopathy. There are no focal slowing, epileptiform discharge or seizure on the EEG. Clinical correlation is recommended. MMMILI / REMYN: [id number] / MTDD
--- NOTE | 2020-08-27 16:23 | P.PN ---
Progress Note - Text Progress Note Date: 08/27/20 Chief Complaint: Weakness with altered sensorium History of presenting complaint: This is a 75-year-old male with complex past medical history noted below significant for prior stroke and underlying dementia. Chronic stable medical conditions include atrial fibrillation, COPD, moderate cognitive impairment, diabetes, GERD, hyperlipidemia, hypertension, chronic kidney disease. Patient recently in the hospital from August 14 through August 16. Found to be orthostatic. [place] to be from autonomic dysfunction from underlying diabetes. Also had a pacemaker check. Patient recently had a generator change on August 02 with History obtained by the at the bedside. Patient and had gone out for a meal yesterday. When they came back to the car patient felt rather dizzy tired thought he may be blanking out. No chest pain or palpitation. Follows feeling rather tired and rundown. Patient is brought into the ER last night. When the EMS arrived patient not able to answer any questions. Patient is very confused. Unable to follow simple commands. The behavior was described from being aggressive combative crying and scared. The patient is moving all extremities. Patient last received some Ativan. And this morning when I saw the patient patient rather sleepy. Barely arousable. No fever reported. Admitted with acute sensorium/metabolic encephalopathy/delirium. Electrolyte abnormalities including hyperkalemia. Given Kayexalate. Today: Sleepy but arousable. Seen by speech therapist. Able to swallow. The sensorium affecting the process. Patient also scheduled Haldol. Review of systems cannot be done as patient's is rather sleepy Active Medications Apixaban (Apixaban 2.5 Mg Tablet) 2.5 mg PO BID [facility] Last Admin: 08/27/20 09:25 Dose: 2.5 mg Documented by: Aspirin (Aspirin 81 Mg) 81 mg PO DAILY [facility] Last Admin: 08/27/20 09:23 Dose: 81 mg Documented by: Atorvastatin Calcium (Atorvastatin 80 Mg Tab) 80 mg PO HS [facility] Last Admin: 08/26/20 21:11 Dose: Not Given Documented by: Calcitriol (Calcitriol 0.25 Mcg Cap) 0.25 mcg PO [facility] Carvedilol (Carvedilol 3.125 Mg Tab) 3.125 mg PO AC-BID [facility] Last Admin: 08/27/20 06:57 Dose: Not Given Documented by: Cholecalciferol (Cholecalciferol 25 Mcg (1000 Iu) Tablet) 25 mcg PO DAILY [facility] Last Admin: 08/27/20 09:25 Dose: 25 mcg Documented by: Cyanocobalamin (Cyanocobalamin 500 Mcg Tab) 1,000 mcg PO DAILY [facility] Donepezil HCl (Donepezil 5 Mg Tab) 5 mg PO HS [facility] Last Admin: 08/26/20 12:43 Dose: 5 mg Documented by: Haloperidol Lactate (Haloperidol Lactate 5 Mg/Ml 1 Ml Vial) 2 mg IVP QID [facility] Last Admin: 08/27/20 12:54 Dose: Not Given Documented by: Sodium Chloride (Saline 0.9%) 1,000 mls @ 100 mls/hr IV .Q10H [facility] Last Admin: 08/27/20 12:53 Dose: 100 mls/hr Documented by: Insulin Aspart (Insulin Aspart (Novolog) 100 Unit/Ml Vial) 6 unit SQ AC-TID [facility] Last Admin: 08/27/20 12:53 Dose: Not Given Documented by: Insulin Aspart (Insulin Aspart (Novolog) 100 Unit/Ml Vial) 0 unit SQ [facility]; Protocol Last Admin: 08/27/20 12:54 Dose: Not Given Documented by: Insulin Detemir (Insulin Detemir (Levemir) 100 Unit/Ml Syr) 26 unit SQ [facility] Last Admin: 08/26/20 21:11 Dose: Not Given Documented by: Latanoprost (Latanoprost 0.005% Ophth Drops 2.5 Ml Btl) 1 drops RIGHT EYE [facility] Last Admin: 08/26/20 21:11 Dose: Not Given Documented by: Lorazepam (Lorazepam 2 Mg/Ml Inj) 1 mg IV Q4HR PRN PRN Reason: Anxiety Memantine (Memantine 10 Mg Tab) 10 mg PO DAILY [facility] Last Admin: 08/27/20 09:25 Dose: 10 mg Documented by: Pantoprazole Sodium (Pantoprazole 40 Mg Tablet) 40 mg PO AC-BRKFST [facility] Last Admin: 08/27/20 06:57 Dose: Not Given Documented by: Ranolazine (Ranolazine 500 Mg Tab.Er.12h) 1,000 mg PO BID [facility] Last Admin: 08/27/20 09:24 Dose: 1,000 mg Documented by: Senna (Sennosides 8.6 Mg Tab) 8.6 mg PO BID PRN PRN Reason: Constipation Last Admin: 08/26/20 12:43 Dose: 8.6 mg Documented by: Tamsulosin HCl (Tamsulosin 0.4 Mg Cap.Er.24h) 0.4 mg PO DAILY [facility] Last Admin: 08/27/20 09:25 Dose: 0.4 mg Documented by: Past medical history to include: Stroke, dementia, atrial fibrillation, COPD, moderate cognitive impairment, diabetes, GERD, hyperlipidemia, hypertension, chronic kidney disease, gait dysfunction uses a walker, pacemaker Social history: . Private hire help starting last week. Walker, and a Wheelchair. Patient been smoking for over 60 years. Down to a pack a day from 2 packs a day. On examination: VITAL SIGNS: 97.4, 71, 16, 149/64, 97% on room air GENERAL APPEARANCE: Laying in bed sleepy HEENT: Normal external appearance of nose and ear. Oral cavity dry EYES: Pupils equal. Conjunctiva normal. NECK: JVD unable to assess Mass not palpable. RESPIRATORY: Respiratory effort increased Decreased breath sounds. CARDIOVASCULAR: First and second sounds normal. No edema. ABDOMEN: Soft. Liver and spleen not palpable. No tenderness. No mass palpable. PSYCHIATRY: Unable to assess NEUROLOGICAL: Cranial nerves grossly intact. Moving limbs INVESTIGATIONS, reviewed in the clinical context: EEG: No evidence of epilepsy. Evidence of mild encephalopathy. 2-D echocardiogram: EF 30-35%. Wall motion on normality. August 27: Potassium 4.9 creatinine 2.24 WBC 7.7 hemoglobin 11.3 platelets 320 potassium 5.9 bun 52 creatinine 2.46 glucose 186 UA positive for protein 2+ amorphous sediment few Urine drug screen negative Coronavirus [PCL]-not detected EKG tracing personally reviewed by me-right bundle branch block pattern, paced rhythm Chest x-ray film personally reviewed by me-[portable] cardiomegaly, AICD, underpenetrated film. Questionable venous prominence Assessment and plan: -Acute change in sensorium with agitated aggressive behavior. Appears to be acute delirium. This in the setting of known dementia. Could be psychosis. No obvious evidence of any infection. Before that his electrolyte abnormalities including hyperkalemia. - orthostatic hypertension, likely from autonomic dysfunction from diabetes Bilateral CHARLIE stockings. Fall precautions. -Persistent atrial fibrillation Paced rhythm. On eliquis -COPD in a current smoker, symptoms controlled DuoNeb -Chronic nicotine dependence patient cigarette smoker Nicotine patch -Moderate cognitive impairment from late onset Alzheimer's dementia -Diabetes mellitus type 2 On Levemir. 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 Lasix. Kayexalate. -Obstructive sleep apnea, unable to wear a mask -Peripheral arterial disease On aspirin, Lipitor -Permanent pacemaker with generator change in August 02-2020 Pacemaker check done recently -Chronic gait dysfunction, and a baseline patient uses a walker -Chronic congestive heart failure from systolic dysfunction EF 30-35% Follow fluid status Discussed with showcase maker. Patient's asked 22/10 care at home. Patient wishes to take the patient home when stable. Discussed with Dr. Mccann psychiatry. We'll change the Haldol to every 6 when necessary. And benefit Benefit from Aricept and Namenda not felt to be present therefore This will DC the same. Total time spent today was about 45 minutes with over 25 minutes of discussion.
[2020-08-27 17:13] LABS: Glucose,Whole Blood 185 mg/dL (75-99)
[2020-08-27] MEDS: HALOPERIDOL LACTATE 5 MG/ML 1 ML VIAL IVP PRN (18:42)
[2020-08-27 20:13] LABS: Glucose,Whole Blood 264 mg/dL (75-99)
[2020-08-27] MEDS: INSULIN DETEMIR (LEVEMIR) 100 UNIT/ML SYR SQ SCH (20:19)
[2020-08-27] MEDS: ATORVASTATIN 80 MG TAB PO SCH (20:19)
[2020-08-27] MEDS: LATANOPROST 0.005% OPHTH DROPS 2.5 ML BTL RIGHT EYE SCH (20:20)
[2020-08-28] MEDS: LORazepam 2 MG/ML INJ IV PRN ×2 (01:29→07:10)
[2020-08-28] MEDS: HALOPERIDOL LACTATE 5 MG/ML 1 ML VIAL IVP PRN (06:17)
[2020-08-28] MEDS: SODIUM CHLORIDE 0.9% 1,000 ML IV SCH ×3 (06:47→16:27)
[2020-08-28] MEDS: carvediloL 3.125 MG TAB PO SCH ×2 (06:47→16:27)
[2020-08-28] MEDS: PANTOPRAZOLE 40 MG TABLET PO SCH (06:47)
[2020-08-28] MEDS: INSULIN ASPART (NovoLOG) 100 UNIT/ML VIAL SQ SCH ×7 (06:47→21:16)
[2020-08-28 06:49] LABS: Glucose,Whole Blood 144 mg/dL (75-99)
[2020-08-28] MEDS ORDERED: hydrALAZINE HCL 20 MG/ML 1 ML VIAL IVP STA (07:09)
[2020-08-28] MEDS: IPRATROPIUM-ALBUTEROL 3 ML NEB INHALATION SCH ×4 (07:44→22:47)
[2020-08-28 07:49] LABS: ABG Base Excess -5.5 mmol/L; ABG HCO3 22 mmol/L (21-25); ABG Oxygen Saturation 92.6 % (94-97); ABG PCO2 49 mmHg (35-45); ABG PH 7.26 (7.35-7.45); ABG PO2 75 mmHg (83-108); ABG TCO2 23 mmol/L (19-24); Allen Test Performed? Yes
[2020-08-28] MEDS ORDERED: IPRATROPIUM-ALBUTEROL 3 ML NEB INHALATION PRN (08:00)
[2020-08-28] MEDS ORDERED: HYDROmorphone 1 MG/ML 1 ML SYRINGE IVP PRN (08:12)
[2020-08-28] MEDS ORDERED: FUROSEMIDE 10 MG/ML 4 ML VIAL IV STA (08:16)
--- NOTE | 2020-08-28 08:23 | P.EN ---
I responded to a rapid response team called by nursing staff for worsening agitation, hypertension, and hypoxia. Upon arrival to the room, patient was awake and alert. He appears slightly confused but oriented 2-3. He seems tachypneic. Patient was on 2 L of oxygen via nasal cannula but oxygen saturation dropped to the low 80s so his oxygen supply was increased to 6 L and currently he is satting in the mid 90s. Blood pressure earlier was 208/88 and patient was given IV hydralazine with some improvement. He is afebrile. Lung sounds revealed diffuse wheezing and crackles all over the chest. Abdomen was soft and nontender. There is a ventral hernia. No lower extremity edema. I reviewed blood gas done this morning showing mild acidosis with no significant hypoxia or hypercapnia. I ordered a repeat chest x-ray and one-time dose of IV Lasix 40 mg Also order some morning lab including CBC, CMP, lactic acid, and ammonia level. I reviewed patient's medical chart and apparently he was admitted to the hospital with worsening agitation/delirium with history of underlying dementia. His CODE STATUS to be clarified by nursing staff as apparently he is supposed to be a DO NOT RESUSCITATE. Nursing staff will contact attending physician for update.
--- NOTE | 2020-08-28 08:34 | XR ---
EXAMINATION TYPE: XR chest 1V portable DATE OF EXAM: 08/28/2020 COMPARISON: 08/26/2020, 08/15/2020 HISTORY: Shortness of breath TECHNIQUE: Single frontal view of the chest is obtained. FINDINGS: Left infraclavicular generator device with stable leads. Overlying leads. Low lung volumes . Heart size is enlarged. Small bilateral pleural effusions. Perihilar and interstitial airspace opac ities suggestive of edema or less likely atypical infection. Findings are likely stable due to differ ences in technique. IMPRESSION: 1. Cardiomegaly and diffuse interstitial airspace opacities suggestive of edema. This may be superimp osed on pulmonary fibrosis. Small pleural effusions. Consider congestive heart failure. Findings are relatively stable with differences in technique.
[2020-08-28 09:23] LABS: Basophils % (A) 1 %; Eosinophils # (A) 0.1 k/uL (0-0.7); Eosinophils % (A) 1 %; HCT 35.4 % (39.0-53.0); HGB 11.4 gm/dL (13.0-17.5); Lymphocytes # (A) 0.7 k/uL (1.0-4.8); Lymphocytes % (A) 10 %; MCH 31.1 pg (25.0-35.0); MCHC 32.2 g/dL (31.0-37.0); MCV 96.6 fL (80.0-100.0); Mean Platelet Volume 6.8; Monocytes # (A) 0.3 k/uL (0-1.0); Monocytes % (A) 4 %; Neutrophils % (A) 84 %; Platelet Count 278 k/uL (150-450); RBC 3.66 m/uL (4.30-5.90); RDW 14.1 % (11.5-15.5); WBC 7.2 k/uL (3.8-10.6)
[2020-08-28 09:30] LABS: Lactic Acid, Venous 0.8 mmol/L (0.7-2.0)
[2020-08-28 09:33] LABS: Albumin 3.4 g/dL (3.5-5.0); Calcium 8.9 mg/dL (8.4-10.2); Total Bilirubin 0.5 mg/dL (0.2-1.3); Total Protein 6.3 g/dL (6.3-8.2)
--- NOTE | 2020-08-28 11:35 | P.CNPUL ---
History of Present Illness Consult date: 08/28/20 Reason for consult: dyspnea, COPD, hypoxemia Chief complaint: Progressive shortness of breath with wheezing History of present illness: Patient is a 75-year-old male with advanced dementia and Alzheimer's disease, patient is a resident of [facility] brought into emergency department for evaluation of altered mental status, this morning patient had a rapid response due to hypoxia also developed progressive worsening of agitation and hypertension, patient was confused tachypneic tachycardic FiO2 up from 2 L to 6 L oxygen saturation was 86, blood pressure was noted to be 2 8/88, status post hydralazine IV with some improvement in blood pressure, has bilateral crackles and wheezing, patient has been placed on bronchodilators also got Lasix, patient has a large ventral hernia, complaining of pain in the hernia computed tomography scan of the abdominal pelvis and chest has been ordered without contrast due to chronic renal failure, patient noted to have a significant metabolic acidosis with pH of 7.26 pCO2 of 49. PA O2 75, chest x- ray significant for cardiomegaly interstitial edema likely CHF with presence of pulmonary fibrosis and bilateral small effusion likely suggestive congestive heart failure Review of Systems All systems: negative Past Medical History Past Medical History: Atrial Fibrillation, Heart Failure, COPD, CVA/TIA, Dementia, Diabetes Mellitus, GERD/Reflux, Hyperlipidemia, Hypertension, Myocardial Infarction (PR), Renal Disease, Sleep Apnea/CPAP/BIPAP, Vascular Disorder Additional Past Medical History / Comment(s): IDDM type II, 2006 CVA-more sleepy since, seizures ruled out by [facility], DION-did not tolerate mask, chronic kidney disease stage III, peripheral vascular disease, previous history of UTI with E. 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 Mother Family Medical History: Cancer Additional Family Medical History / Comment(s): Pt/spouse do not recall type of cancer. Brother(s) Family Medical History: Cancer Medications and Allergies Home Medications Medication Instructions Recorded Confirmed Type Famotidine [Pepcid] 20 mg PO DAILY 01/16/18 08/25/20 History INSULIN ASPART (NovoLOG) [NovoLOG See Protocol SQ AC-TID 01/16/18 08/25/20 History (formulary)] Donepezil [Aricept] 5 mg PO HS #30 tab 02/03/18 08/25/20 Rx Furosemide [Lasix] 40 mg PO Q48H 11/07/18 08/25/20 History Memantine [Namenda] 10 mg PO DAILY 11/07/18 08/25/20 History Cholecalciferol [Vitamin D3 (25 1,000 unit PO DAILY 12/30/18 08/25/20 History Mcg = 1000 Iu)] Apixaban [Eliquis] 2.5 mg PO BID #60 tablet 01/11/19 08/25/20 Rx INSULIN ASPART (NovoLOG) [NovoLOG 6 unit SQ AC-TID vial 01/12/19 08/25/20 Rx (formulary)] Atorvastatin Calcium [Lipitor] 80 mg PO HS 06/16/20 08/25/20 History Carvedilol [Coreg] 3.125 mg PO BID 06/16/20 08/25/20 History Insulin Glargine,Hum.rec.anlog 35 unit SQ HS 06/16/20 08/25/20 History [Lantus Solostar] Ranolazine [Ranolazine ER] 1,000 mg PO BID 06/16/20 08/25/20 History Aspirin EC [Ecotrin Low Dose] 81 mg PO DAILY 08/14/20 08/25/20 History Sennosides [Senna] 8.6 mg PO BID PRN 08/14/20 08/25/20 History calcitrioL [Calcitriol] 0.25 mcg PO TH 08/14/20 08/25/20 History Latanoprost/Pf [Latanoprost 0.005% 1 drop RIGHT EYE HS 08/25/20 08/25/20 History Eye Drop] Omeprazole 40 mg PO DAILY 08/25/20 08/25/20 History Tamsulosin HCl [Flomax] 0.4 mg PO DAILY 08/25/20 08/25/20 History Allergies Allergy/AdvReac Type Severity Reaction Status Date / Time codeine Allergy Unknown Verified 08/14/20 06:36 [From Tylenol-Codeine #3] Physical Exam Vitals: Vital Signs Temp Pulse Pulse Pulse Resp BP BP 08/28/20 07:52 120 H 08/28/20 07:45 120 H 08/28/20 07:33 208/88 08/28/20 01:43 70 18 167/74 08/27/20 20:00 97.7 F 70 18 125/66 08/27/20 17:10 97.5 F L 70 16 163/71 08/27/20 14:15 16 Pulse Ox 08/28/20 07:52 08/28/20 07:45 08/28/20 07:33 08/28/20 01:43 95 08/27/20 20:00 95 08/27/20 17:10 98 08/27/20 14:15 Intake and Output 08/27/20 08/28/20 08/28/20 22:59 06:59 14:59 Other: Voiding Method Diaper # Voids 1 # Bowel Movements 1 - Constitutional General appearance: average body habitus, cooperative, disheveled, mild distress - EENT Eyes: PERRLA Ears: bilateral: normal - Neck Carotids: bilateral: upstroke normal - Respiratory Respiratory: bilateral: diminished, rales - Cardiovascular Rhythm: regular Heart sounds: normal: S1, S2 - Gastrointestinal Large ventral hernia General gastrointestinal: decreased bowel sounds, distended, tenderness - Integumentary Integumentary: normal turgor - Musculoskeletal Musculoskeletal: generalized weakness, strength equal bilaterally Results - Laboratory Findings CBC and BMP: 08/28/20 08:35 08/28/20 08:35 ABG ABG pH 7.26 (7.35-7.45) L 08/28/20 07:45 ABG pCO2 49 mmHg (35-45) H 08/28/20 07:45 ABG pO2 75 mmHg (83-108) L 08/28/20 07:45 ABG O2 Saturation 92.6 % (94-97) L 08/28/20 07:45 PT/INR, D-dimer PT 10.9 sec (9.0-12.0) 08/25/20 23:58 INR 1.0 (<1.2) 08/25/20 23:58 Abnormal lab findings: Abnormal Labs 08/25/20 08/25/20 08/25/20 23:10 23:58 23:58 RBC 3.62 L Hgb 11.3 L Hct 35.1 L Lymphocytes # ABG pH ABG pCO2 ABG pO2 ABG O2 Saturation Potassium 5.9 H Chloride 108 H Carbon Dioxide BUN 52 H Creatinine 2.46 H Glucose 186 H POC Glucose (mg/dL) 213 H Hemoglobin A1c Creatine Kinase 47 L Albumin HDL Cholesterol Urine Protein Amorphous Sediment Hyaline Casts Urine Mucus 08/26/20 08/26/20 08/26/20 04:29 10:46 11:54 RBC Hgb Hct Lymphocytes # ABG pH ABG pCO2 ABG pO2 ABG O2 Saturation Potassium Chloride Carbon Dioxide BUN Creatinine Glucose POC Glucose (mg/dL) 67 L Hemoglobin A1c 7.1 H Creatine Kinase Albumin HDL Cholesterol Urine Protein 2+ H Amorphous Sediment Few H Hyaline Casts 7 H Urine Mucus Rare H 08/26/20 08/26/20 08/26/20 11:54 17:26 17:43 RBC Hgb Hct Lymphocytes # ABG pH ABG pCO2 ABG pO2 ABG O2 Saturation Potassium 5.9 H Chloride 110 H Carbon Dioxide BUN 53 H Creatinine 2.25 H Glucose 105 H POC Glucose (mg/dL) 65 L 71 L Hemoglobin A1c Creatine Kinase Albumin HDL Cholesterol Urine Protein Amorphous Sediment Hyaline Casts Urine Mucus 08/27/20 08/27/20 08/27/20 01:03 01:25 06:48 RBC Hgb Hct Lymphocytes # ABG pH ABG pCO2 ABG pO2 ABG O2 Saturation Potassium Chloride 113 H Carbon Dioxide 21 L BUN 44 H Creatinine 2.24 H Glucose POC Glucose (mg/dL) 61 L 133 H Hemoglobin A1c Creatine Kinase Albumin HDL Cholesterol 28.0 L Urine Protein Amorphous Sediment Hyaline Casts Urine Mucus 08/27/20 08/27/20 08/27/20 11:58 17:06 20:04 RBC Hgb Hct Lymphocytes # ABG pH ABG pCO2 ABG pO2 ABG O2 Saturation Potassium Chloride Carbon Dioxide BUN Creatinine Glucose POC Glucose (mg/dL) 138 H 185 H 264 H Hemoglobin A1c Creatine Kinase Albumin HDL Cholesterol Urine Protein Amorphous Sediment Hyaline Casts Urine Mucus 08/28/20 08/28/20 08/28/20 06:24 07:45 08:35 RBC 3.66 L Hgb 11.4 L Hct 35.4 L Lymphocytes # 0.7 L ABG pH 7.26 L ABG pCO2 49 H ABG pO2 75 L ABG O2 Saturation 92.6 L Potassium Chloride Carbon Dioxide BUN Creatinine Glucose POC Glucose (mg/dL) 144 H Hemoglobin A1c Creatine Kinase Albumin HDL Cholesterol Urine Protein Amorphous Sediment Hyaline Casts Urine Mucus 08/28/20 08:35 RBC Hgb Hct Lymphocytes # ABG pH ABG pCO2 ABG pO2 ABG O2 Saturation Potassium Chloride 110 H Carbon Dioxide 21 L BUN 44 H Creatinine 2.09 H Glucose 140 H POC Glucose (mg/dL) Hemoglobin A1c Creatine Kinase Albumin 3.4 L HDL Cholesterol Urine Protein Amorphous Sediment Hyaline Casts Urine Mucus - Diagnostic Findings Chest x-ray: report reviewed, image reviewed Assessment and Plan Assessment: Acute hypoxic respiratory failure appeared to be related to acute pulmonary edema and hypertensive heart failure Acute metabolic acidosis with some contribution from respiratory acidosis Chronic kidney disease Hypertensive urgency/emergency Large ventral hernia tender Altered mental status multifactorial processes neurology has been following Plan: Continue supplemental oxygen Bronchodilators Gentle diuresis Adequate control of blood pressure Computed tomography scan of the chest abdominal and pelvis
[2020-08-28 11:51] LABS: Glucose,Whole Blood 139 mg/dL (75-99)
--- NOTE | 2020-08-28 13:55 | CT ---
EXAMINATION TYPE: CT ChestAbdPelvis wo con DATE OF EXAM: 08/28/2020 COMPARISON: Chest radiograph same day HISTORY: 75-year-old male abdominal pain TECHNIQUE: Contiguous axial scanning of the chest, abdomen, and pelvis without IV contrast. Coronal a nd sagittal reconstructions performed. CT DLP: 1078.8 mGycm Automated exposure control for dose reduction was used. FINDINGS: CHEST: Left anterior chest wall AICD generator with right atrial, right ventricular, and coronary sinus lead s. Heart is borderline enlarged without pericardial effusion. Three-vessel coronary artery calcification s are present. Ectatic ascending aorta 3.7 cm. Moderate atherosclerotic arch calcifications. Mildly enlarged caliber to the main right and left pulmonary arteries measuring up to 2.8 cm. No evident thoracic lymphadenopathy allowing for noncontrast technique and breathing motion. Moderate bilateral pleural effusions. Combination of volume loss and consolidation throughout the lef t lower lobe. Groundglass changes in the aerated portions of the upper lobes. Some atelectasis adjace nt to the right effusion. Mild centrilobular emphysema. ABDOMEN: Noncontrast appearance of the liver, right adrenal gland, right kidney, spleen, and atrophic pancreas show no gross abnormality. There is a 1.3 cm hypodensity partially exophytic from the posterior lower pole of the left kidney, i ndeterminate, probable cyst. The gallbladder is hydropic measuring 5.0 cm wide but without any significant surrounding inflammator y change, probably due to fasting state. There is a 2.1 cm low-density nodule of the left adrenal gland suggesting an adrenal adenoma. There is an umbilical hernia containing multiple small bowel loops. The hernia sac measures 13.9 cm a nd the abdominal wall defect measures 2.9 cm wide. No obstructive changes. No inflammatory changes id entified. Moderate to severe atherosclerotic calcifications throughout the abdominal aorta and iliac arteries. Some fusiform ectasia of the left common iliac artery measuring up to 1.7 cm. No dilated small bowel. Mild generalized anasarca changes but without any free fluid or free air. No mesenteric or retroperitoneal lymphadenopathy seen. [id number] stool burden. Mild diverticular change along the proximal sigmoid colon. No pericolo padmini inflammatory change. PELVIS: Bladder is urine distended measuring up to 12.3 cm craniocaudal. Prostate gland mildly prominent 4.2 cm wide. No abnormal fluid collection in the pelvis or pelvic lymphadenopathy. BONES: Degenerative changes at the hips. Degenerative changes right SI joint. Hypertrophic facet arthropathy throughout the lumbar spine. No osseous destructive process. IMPRESSION: 1. CAD. MODERATE BILATERAL EFFUSIONS. GROUNDGLASS CHANGES THROUGHOUT. PULMONARY CHILL HYPERTENSION. C ORRELATE FOR PULMONARY EDEMA. 2. VOLUME LOSS AND MORE EXTENSIVE CONSOLIDATION IN THE LEFT LOWER LOBE. UNDERLYING PNEUMONIA NOT EXCL UDED. 3. MODERATE-SIZED UMBILICAL HERNIA CONTAINING MULTIPLE SMALL BOWEL LOOPS. THE HERNIA SAC MEASURES 13. 9 CM WIDE AND THE ABDOMINAL WALL DEFECT MEASURES 2.9 CM WIDE. NO OBSTRUCTIVE CHANGES. 4. PROMINENT DISTENTION OF THE URINARY BLADDER UP TO 12.3 CM. CORRELATE TO ENSURE THAT THIS REPRESENT S VOLUNTARY RETENTION. 5. HYDROPIC GALLBLADDER PROBABLY DUE TO FASTING STATE. IF RIGHT UPPER QUADRANT PAIN DEVELOPS OR GATITO RN FOR EARLY ACUTE CHOLECYSTITIS, HIDA SCAN CAN BE CONSIDERED.
[2020-08-28] MEDS: APIXABAN 2.5 MG TABLET PO SCH ×3 (16:07→21:16)
[2020-08-28] MEDS: ASPIRIN 81 MG PO SCH (16:07)
[2020-08-28] MEDS: CYANOCOBALAMIN 500 MCG TAB PO SCH (16:08)
[2020-08-28] MEDS: RANOLAZINE 500 MG TAB.ER.12H PO SCH ×2 (16:08→21:21)
[2020-08-28] MEDS: guaiFENesin 600 MG TABLET.ER PO SCH ×3 (16:08→21:29)
[2020-08-28] MEDS: CHOLECALCIFEROL 25 MCG (1000 IU) TABLET PO SCH (16:08)
--- NOTE | 2020-08-28 16:10 | P.PN ---
Subjective Progress Note Date: 08/28/20 The patient is seen at bedside and is about the same as yesterday. No worsening of his mentation. Objective - Vital Signs Vital signs: Vital Signs Temp 95.4 F L 08/28/20 12:30 Pulse 69 08/28/20 12:30 Resp 18 08/28/20 12:30 BP 158/61 08/28/20 12:30 Pulse Ox 100 08/28/20 12:30 Intake & Output 08/27/20 08/28/20 08/28/20 18:59 06:59 18:59 Intake Total 800 0 Balance 800 0 Intake: Intake, IV Titration 800 Amount Sodium Chloride 0.9% 1, 800 000 ml @ 100 mls/hr IV . Q10H [facility] Rx#:[id number] Oral 0 Other: Voiding Method Diaper Diaper Diaper # Voids 0 # Bowel Movements 0 - Exam GENERAL: The patient is lying in bed and does not seem in acute pain. NEUROLOGICAL: Higher mental function: The patient is intermittently sleep but is awakeable to voice. Is oriented to self and place. Said he does not know year or moth (per that is normal but sometimes but would know). Is able to identify objects such as pen and watch. Patient is following simple commands. No aphasia or neglect. Cranial nerves: The pupils are round, equal and reactive to light. Visual field are full to confrontation. EOM intact and no nystagmus in any direction. No facial weakness. No dysarthria is noted from limited language. Motor: Gait is deferred. The strength is moving all extremities above gravity without drift and had good hand topographic computator bilaterally. The strength in upper are 5/5 while lowers has 5-/5 bilaterally. Normal tone and bulk. Sensation: Normal to touch throughout. Reflexes (right/left): 2+ throughout Upper while 1+ in lowers. Plantars are downgoing bilaterally. - Labs CBC & Chem 7: 08/28/20 08:35 08/28/20 08:35 Labs: Abnormal Lab Results - Last 24 Hours (Table) 08/27/20 08/27/20 08/27/20 Range/Units 06:48 17:06 20:04 RBC (4.30-5.90) m/uL Hgb (13.0-17.5) gm/dL Hct (39.0-53.0) % Lymphocytes # (1.0-4.8) k/uL ABG pH (7.35-7.45) ABG pCO2 (35-45) mmHg ABG pO2 (83-108) mmHg ABG O2 Saturation (94-97) % Chloride (98-107) mmol/L Carbon Dioxide (22-30) mmol/L BUN (9-20) mg/dL Creatinine (0.66-1.25) mg/dL Glucose (74-99) mg/dL POC Glucose (mg/dL) 185 H 264 H (75-99) mg/dL Albumin (3.5-5.0) g/dL HDL Cholesterol 28.0 L (40.0-60.0) mg/dL 08/28/20 08/28/20 08/28/20 Range/Units 06:24 07:45 08:35 RBC 3.66 L (4.30-5.90) m/uL Hgb 11.4 L (13.0-17.5) gm/dL Hct 35.4 L (39.0-53.0) % Lymphocytes # 0.7 L (1.0-4.8) k/uL ABG pH 7.26 L (7.35-7.45) ABG pCO2 49 H (35-45) mmHg ABG pO2 75 L (83-108) mmHg ABG O2 Saturation 92.6 L (94-97) % Chloride (98-107) mmol/L Carbon Dioxide (22-30) mmol/L BUN (9-20) mg/dL Creatinine (0.66-1.25) mg/dL Glucose (74-99) mg/dL POC Glucose (mg/dL) 144 H (75-99) mg/dL Albumin (3.5-5.0) g/dL HDL Cholesterol (40.0-60.0) mg/dL 08/28/20 08/28/20 Range/Units 08:35 11:49 RBC (4.30-5.90) m/uL Hgb (13.0-17.5) gm/dL Hct (39.0-53.0) % Lymphocytes # (1.0-4.8) k/uL ABG pH (7.35-7.45) ABG pCO2 (35-45) mmHg ABG pO2 (83-108) mmHg ABG O2 Saturation (94-97) % Chloride 110 H (98-107) mmol/L Carbon Dioxide 21 L (22-30) mmol/L BUN 44 H (9-20) mg/dL Creatinine 2.09 H (0.66-1.25) mg/dL Glucose 140 H (74-99) mg/dL POC Glucose (mg/dL) 139 H (75-99) mg/dL Albumin 3.4 L (3.5-5.0) g/dL HDL Cholesterol (40.0-60.0) mg/dL Assessment and Plan Assessment: Generalized body weakness with recurrent falls with reported altered mental status . Possibly metabolic encephalopathy. Also due to medication effect (Ativan in the hospital)--mentation improving (per ) Recurrent falls. Rule out diabetic neuropathy as cause. Per family members no hx of seizure and no loss of consciousness with these episodes. 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 Per he had brainstem stroke. Cervical spondylosis (C3-C4 and C6-C7) Low vitamin B12 Episode of hypoglycemia during hospital stay Acute on chronic renal failure Slight elevated sugar with history of diabetes mellitus Hyperlipidemia History of heart failure s/p pacemaker Plan: * CT of the head is reported as old right occipital lobe ischemic infarct without change. Cerebral atrophy. No acute intracranial abnormality. Upon reviewing reports from CT brain of 2018 it was reported he had this right occipital stroke even at that time. * CT cervical as reported as degenerative subluxation at 3 C4 without change. No fracture seen in the cervical spine. I felt he had cervical spondylosis over C6-C7. * AST of 18, ALT of 12 and ammonia is 12 which is normal. * Vitamin B12: 361 (low normal). * Serum Folate is 12.1 (normal). TSH: 0.528 (normal). * HbA1c: 7.1 (elevated) * Patient had glucose level as low as 61 overnight. * 2D echo limited: Limited study. EF of 30-35%. Basal posterior/inferior and mild posterior/inferior and apical inferior/lateral and septum LV wall motion are hypokietic * Limited Orthostatic: Supine BP 121/65 with HR 69 and sitting BP 138/77 with HR 70. Which is negative from limited study. * Routine EEG on 08/27/2020: It is an abnormal EEG. The background slowing is suggestive of mild encephalopathy. There are no focal slowing, epileptiform discharges or seizure on the EEG. * I started the patient on Vitamin B12 1000mcg daily since Vitamin B12 is low normal. * Continue home medication of ASA 81mg and Lipitor 80mg qhs. * PT, OT and REHAB CONSULTANT are consulted. * Please avoid hypoglycemic event and will defer management to the primary team. * Please avoid any sedation/narcotics that would affect neurological examination. * I recommend that patient to receive 24 hour home care (per family wishes). * Upon discharge the patient needs to follow-up with his neurologist as outpatient within 1-2 weeks. The plan is discussed with his nurse. I spoke with patient's family members for the past two days regarding the management. There is no further neurological work-up needed. Neurology will sign off. Please reconsult if needed. Virgilio Jung MD Neuro-Hospitalist Time with Patient: Less than 30
[2020-08-28] MEDS: TAMSULOSIN 0.4 MG CAP.ER.24H PO SCH (16:27)
[2020-08-28 16:55] LABS: Glucose,Whole Blood 116 mg/dL (75-99)
[2020-08-28 20:35] LABS: Glucose,Whole Blood 117 mg/dL (75-99)
[2020-08-28] MEDS: INSULIN DETEMIR (LEVEMIR) 100 UNIT/ML SYR SQ SCH (21:20)
[2020-08-28] MEDS: ATORVASTATIN 80 MG TAB PO SCH (21:20)
--- NOTE | 2020-08-28 22:53 | P.PN ---
Progress Note - Text Progress Note Date: 08/28/20 Chief Complaint: Weakness with altered sensorium History of presenting complaint: This is a 75-year-old male with complex past medical history noted below significant for prior stroke and underlying dementia. Chronic stable medical conditions include atrial fibrillation, COPD, moderate cognitive impairment, diabetes, GERD, hyperlipidemia, hypertension, chronic kidney disease. Patient recently in the hospital from August 14 through August 16. Found to be orthostatic. [place] to be from autonomic dysfunction from underlying diabetes. Also had a pacemaker check. Patient recently had a generator change on August 02 with History obtained by the at the bedside. Patient and had gone out for a meal yesterday. When they came back to the car patient felt rather dizzy tired thought he may be blanking out. No chest pain or palpitation. Follows feeling rather tired and rundown. Patient is brought into the ER last night. When the EMS arrived patient not able to answer any questions. Patient is very confused. Unable to follow simple commands. The behavior was described from being aggressive combative crying and scared. The patient is moving all extremities. Patient last received some Ativan. And this morning when I saw the patient patient rather sleepy. Barely arousable. No fever reported. Admitted with acute sensorium/metabolic encephalopathy/delirium. Electrolyte abnormalities including hyperkalemia. Given Kayexalate. Today: Sleepy but just about arousable. Decreased oral intake. Patient had an episode of hypoxia earlier today. Review of systems cannot be done as patient's is rather lethargic Active Medications Albuterol/Ipratropium (Ipratropium-Albuterol 3 Ml Neb) 3 ml INHALATION RT-QID [facility] Last Admin: 08/28/20 22:47 Dose: Not Given Documented by: Albuterol/Ipratropium (Ipratropium-Albuterol 3 Ml Neb) 3 ml INHALATION RT-Q4H PRN PRN Reason: sob Apixaban (Apixaban 2.5 Mg Tablet) 2.5 mg PO BID [facility] Last Admin: 08/28/20 21:16 Dose: Not Given Documented by: Aspirin (Aspirin 81 Mg) 81 mg PO DAILY [facility] Last Admin: 08/28/20 16:07 Dose: Not Given Documented by: Atorvastatin Calcium (Atorvastatin 80 Mg Tab) 80 mg PO HS [facility] Last Admin: 08/28/20 21:20 Dose: 80 mg Documented by: Calcitriol (Calcitriol 0.25 Mcg Cap) 0.25 mcg PO TH [facility] Carvedilol (Carvedilol 3.125 Mg Tab) 3.125 mg PO AC-BID [facility] Last Admin: 08/28/20 16:27 Dose: 3.125 mg Documented by: Cholecalciferol (Cholecalciferol 25 Mcg (1000 Iu) Tablet) 25 mcg PO DAILY [facility] Last Admin: 08/28/20 16:08 Dose: Not Given Documented by: Cyanocobalamin (Cyanocobalamin 500 Mcg Tab) 1,000 mcg PO DAILY [facility] Last Admin: 08/28/20 16:08 Dose: Not Given Documented by: Guaifenesin (Guaifenesin 600 Mg Tablet.Er) 600 mg PO QID [facility] Last Admin: 08/28/20 21:29 Dose: 600 mg Documented by: Haloperidol Lactate (Haloperidol Lactate 5 Mg/Ml 1 Ml Vial) 2 mg IVP QID PRN PRN Reason: Agitation Last Admin: 08/28/20 06:17 Dose: 2 mg Documented by: Sodium Chloride (Saline 0.9%) 1,000 mls @ 100 mls/hr IV .Q10H [facility] Last Admin: 08/28/20 16:27 Dose: 100 mls/hr Documented by: Insulin Aspart (Insulin Aspart (Novolog) 100 Unit/Ml Vial) 6 unit SQ AC-TID [facility] Last Admin: 08/28/20 18:01 Dose: Not Given Documented by: Insulin Aspart (Insulin Aspart (Novolog) 100 Unit/Ml Vial) 0 unit SQ ACHS [facility]; Protocol Last Admin: 08/28/20 21:16 Dose: Not Given Documented by: Insulin Detemir (Insulin Detemir (Levemir) 100 Unit/Ml Syr) 26 unit SQ HS [facility] Last Admin: 08/28/20 21:20 Dose: 26 unit Documented by: Latanoprost (Latanoprost 0.005% Ophth Drops 2.5 Ml Btl) 1 drops [facility] Last Admin: 08/27/20 20:20 Dose: Not Given Documented by: Lorazepam (Lorazepam 2 Mg/Ml Inj) 1 mg IV Q4HR PRN PRN Reason: Anxiety Last Admin: 08/28/20 07:10 Dose: 1 mg Documented by: Pantoprazole Sodium (Pantoprazole 40 Mg Tablet) 40 mg PO AC-BRKFST [facility] Last Admin: 08/28/20 06:47 Dose: 40 mg Documented by: Ranolazine (Ranolazine 500 Mg Tab.Er.12h) 1,000 mg PO BID [facility] Last Admin: 08/28/20 21:21 Dose: 1,000 mg Documented by: Senna (Sennosides 8.6 Mg Tab) 8.6 mg PO BID PRN PRN Reason: Constipation Last Admin: 08/26/20 12:43 Dose: 8.6 mg Documented by: Tamsulosin HCl (Tamsulosin 0.4 Mg Cap.Er.24h) 0.4 mg PO DAILY [facility] Last Admin: 08/28/20 16:27 Dose: 0.4 mg Documented by: Past medical history to include: Stroke, dementia, atrial fibrillation, COPD, moderate cognitive impairment, di abetes, GERD, hyperlipidemia, hypertension, chronic kidney disease, gait dysfunction uses a walker, pacemaker Social history: . Private hire help starting last week. Walker, and a Wheelchair. Patient been smoking for over 60 years. Down to a pack a day from 2 packs a day. On examination: VITAL SIGNS: 95.4, 69, 18, 158/61, 100% on 6 L GENERAL APPEARANCE: Laying in bed lethargic HEENT: Normal external appearance of nose and ear. Oral cavity dry EYES: Pupils equal. Conjunctiva normal. NECK: JVD unable to assess Mass not palpable. RESPIRATORY: Respiratory effort increased Decreased breath sounds. CARDIOVASCULAR: First and second sounds normal. No edema. ABDOMEN: Soft. Liver and spleen not palpable. No tenderness. No mass palpable. PSYCHIATRY: Unable to assess INVESTIGATIONS, reviewed in the clinical context: August 28: WBC 7.2 hemoglobin 11.4 potassium 5 creatinine 2.09 Pro-calcitonin 0.06 EEG: No evidence of epilepsy. Evidence of mild encephalopathy. 2-D echocardiogram: EF 30-35%. Wall motion on normality. August 27: Potassium 4.9 creatinine 2.24 WBC 7.7 hemoglobin 11.3 platelets 320 potassium 5.9 bun 52 creatinine 2.46 glucose 186 UA positive for protein 2+ amorphous sediment few Urine drug screen negative Coronavirus [PCL]-not detected EKG tracing personally reviewed by me-right bundle branch block pattern, paced rhythm Chest x-ray film personally reviewed by me-[portable] cardiomegaly, AICD, underpenetrated film. Questionable venous prominence Assessment and plan: -Acute change in sensorium with agitated aggressive behavior. Likely acute delirium/metabolic encephalopathy.. This in the setting of known dementia. Could be psychosis. No obvious evidence of any infection. Before that his electrolyte abnormalities including hyperkalemia. - orthostatic hypertension, likely from autonomic dysfunction from diabetes Bilateral CHARLIE stockings. Fall precautions. -Persistent atrial fibrillation Paced rhythm. On eliquis -COPD in a current smoker, symptoms controlled DuoNeb -Chronic nicotine dependence patient cigarette smoker Nicotine patch -Moderate cognitive impairment from late onset Alzheimer's dementia -Diabetes mellitus type 2 On Levemir. 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 Lasix. Kayexalate. -Obstructive sleep apnea, unable to wear a mask -Peripheral arterial disease On aspirin, Lipitor -Permanent pacemaker with generator change in August 02-2020 Pacemaker check done recently -Chronic gait dysfunction, and a baseline patient uses a walker -Chronic congestive heart failure from systolic dysfunction EF 30-35% Follow fluid status -Acute hypoxic respiratory failure from COPD-new diagnosis today Supplemental oxygen -Possible aspiration pneumonitis, chemical Given that procalcitonin is normal. Hold off any antibiotics. Discussed with the nurse. We'll try to reinstitute sleep hygiene. Try to keep patient awake this afternoon saying connect to sleep in the evening. Follow closely. Hold any antibiotics for now.
[2020-08-29] MEDS: LATANOPROST 0.005% OPHTH DROPS 2.5 ML BTL RIGHT EYE SCH ×2 (04:05→21:25)
[2020-08-29] MEDS: carvediloL 3.125 MG TAB PO SCH ×2 (06:16→16:49)
[2020-08-29] MEDS: PANTOPRAZOLE 40 MG TABLET PO SCH (06:16)
[2020-08-29 06:17] LABS: Glucose,Whole Blood 50 mg/dL (75-99)
[2020-08-29 06:31] LABS: Glucose,Whole Blood 55 mg/dL (75-99)
[2020-08-29 06:48] LABS: Glucose,Whole Blood 90 mg/dL (75-99)
[2020-08-29] MEDS: INSULIN ASPART (NovoLOG) 100 UNIT/ML VIAL SQ SCH ×8 (07:39→20:56)
[2020-08-29] MEDS: SODIUM CHLORIDE 0.9% 1,000 ML IV SCH (07:39)
[2020-08-29 07:49] LABS: Basophils % (A) 0 %; Eosinophils # (A) 0.2 k/uL (0-0.7); Eosinophils % (A) 2 %; HCT 37.1 % (39.0-53.0); HGB 12.1 gm/dL (13.0-17.5); Hypochromasia Slight; Lymphocytes # (A) 0.8 k/uL (1.0-4.8); Lymphocytes % (A) 9 %; MCH 31.6 pg (25.0-35.0); MCHC 32.6 g/dL (31.0-37.0); MCV 96.9 fL (80.0-100.0); Mean Platelet Volume 7.1; Monocytes # (A) 0.4 k/uL (0-1.0); Monocytes % (A) 4 %; Neutrophils % (A) 83 %; Platelet Count 312 k/uL (150-450); RBC 3.83 m/uL (4.30-5.90); RDW 14.1 % (11.5-15.5); WBC 8.4 k/uL (3.8-10.6)
[2020-08-29] MEDS: IPRATROPIUM-ALBUTEROL 3 ML NEB INHALATION SCH ×4 (07:57→20:21)
[2020-08-29 08:06] LABS: Potassium 4.6 mmol/L (3.5-5.1)
[2020-08-29] MEDS: APIXABAN 2.5 MG TABLET PO SCH ×2 (10:10→20:56)
[2020-08-29] MEDS: TAMSULOSIN 0.4 MG CAP.ER.24H PO SCH (10:10)
[2020-08-29] MEDS: RANOLAZINE 500 MG TAB.ER.12H PO SCH ×2 (10:10→20:59)
[2020-08-29] MEDS: ASPIRIN 81 MG PO SCH (10:10)
[2020-08-29] MEDS: CHOLECALCIFEROL 25 MCG (1000 IU) TABLET PO SCH (10:10)
[2020-08-29] MEDS: guaiFENesin 600 MG TABLET.ER PO SCH ×4 (10:10→20:59)
[2020-08-29] MEDS: CYANOCOBALAMIN 500 MCG TAB PO SCH (10:10)
[2020-08-29 10:57] LABS: Glucose,Whole Blood 126 mg/dL (75-99)
--- NOTE | 2020-08-29 11:19 | XR ---
EXAMINATION TYPE: XR chest 1V portable DATE OF EXAM: 08/29/2020 COMPARISON: Chest x-ray 08/28/2020 HISTORY: Shortness of breath TECHNIQUE: Single frontal view of the chest is obtained. FINDINGS: Interstitium is increased, perihilar vascular indistinctness is again noted. No evident pn eumothorax or sizable effusion. Heart remains enlarged. Intracardiac leads are again seen. There are overlying artifacts. IMPRESSION: Correlate for congestive heart failure. Pneumonia not excluded.
[2020-08-29] MEDS ORDERED: FUROSEMIDE 10 MG/ML 4 ML VIAL IV STA (11:53)
[2020-08-29 12:15] LABS: Glucose,Whole Blood 123 mg/dL (75-99)
[2020-08-29] MEDS: methylPREDNISolone SOD SUCCI 40 MG/ML 1 ML VIAL IV SCH ×3 (12:39→23:15)
[2020-08-29] MEDS: BUDESONIDE 1 MG/2 ML NEBU INHALATION SCH ×2 (13:02→20:21)
[2020-08-29] MEDS: FORMOTEROL FUMARATE 20 MCG/2 ML NEBU INHALATION SCH ×2 (13:02→20:21)
--- NOTE | 2020-08-29 15:16 | P.PN ---
Subjective Progress Note Date: 08/29/20 Principal diagnosis: Bilateral basal and perihilar pneumonia Acute hypoxic respiratory failure appeared to be related to acute pulmonary edema and hypertensive heart failure Acute metabolic acidosis with some contribution from respiratory acidosis Chronic kidney disease Hypertensive urgency/emergency Large ventral hernia tender Altered mental status multifactorial processes neurology has been following 08/29/2020, patient seen eval examined during the rounds labs reviewed medications care plan discussed, respiratory status remains stable denies any chest pain, oxygenation is slightly better patient is on 2 L oxygen wheezing has improved with bronchodilator, patient appears to have aspirated and have aspiration pneumonia, in addition to fluid overload and CHF, would recommend to initiate patient on IV Zosyn, computed tomography scan of the chest as well as today's chest x-ray reviewed Patient is a 75-year-old male with advanced dementia and Alzheimer's disease, patient is a resident of [facility] brought into emergency department for evaluation of altered mental status, this morning patient had a rapid response due to hypoxia also developed progressive worsening of agitation and hypertension, patient was confused tachypneic tachycardic FiO2 up from 2 L to 6 L oxygen saturation was 86, blood pressure was noted to be 2 8/88, status post hydralazine IV with some improvement in blood pressure, has bilateral crackles and wheezing, patient has been placed on bronchodilators also got Lasix, patient has a large ventral hernia, complaining of pain in the hernia computed tomography scan of the abdominal pelvis and chest has been ordered without contrast due to chronic renal failure, patient noted to have a significant metabolic acidosis with pH of 7.26 pCO2 of 49. PA O2 75, chest x- ray significant for cardiomegaly interstitial edema likely CHF with presence of pulmonary fibrosis and bilateral small effusion likely suggestive congestive heart failure Objective - Vital Signs Vital signs: Vital Signs Temp 97.5 F L 08/28/20 19:35 Pulse 78 08/29/20 13:11 Resp 28 H 08/29/20 11:08 BP 179/73 08/29/20 11:08 Pulse Ox 97 08/29/20 11:08 Intake & Output 08/28/20 08/29/20 08/29/20 18:59 06:59 18:59 Intake Total 0 240 Output Total 1550 800 200 Balance -1550 -800 40 Intake: Oral 0 240 Output: Urine 1550 800 200 Other: Voiding Method Diaper Diaper Indwelling Catheter Indwelling Catheter # Voids 0 # Bowel Movements 0 - Exam - Constitutional General appearance: average body habitus, cooperative, disheveled, mild distress - EENT Eyes: PERRLA Ears: bilateral: normal - Neck Carotids: bilateral: upstroke normal - Respiratory Respiratory: bilateral: diminished, rales - Cardiovascular Rhythm: regular Heart sounds: normal: S1, S2 - Gastrointestinal Large ventral hernia General gastrointestinal: decreased bowel sounds, distended, tenderness - Integumentary Integumentary: normal turgor - Musculoskeletal Musculoskeletal: generalized weakness, strength equal bilaterally - Labs CBC & Chem 7: 08/29/20 06:43 08/29/20 06:43 Labs: Abnormal Lab Results - Last 24 Hours (Table) 08/28/20 08/28/20 08/29/20 Range/Units 16:53 20:34 06:08 RBC (4.30-5.90) m/uL Hgb (13.0-17.5) gm/dL Hct (39.0-53.0) % Lymphocytes # (1.0-4.8) k/uL Chloride (98-107) mmol/L BUN (9-20) mg/dL Creatinine (0.66-1.25) mg/dL Glucose (74-99) mg/dL POC Glucose (mg/dL) 116 H 117 H 50 L (75-99) mg/dL 08/29/20 08/29/20 08/29/20 Range/Units 06:29 06:43 06:43 RBC 3.83 L (4.30-5.90) m/uL Hgb 12.1 L (13.0-17.5) gm/dL Hct 37.1 L (39.0-53.0) % Lymphocytes # 0.8 L (1.0-4.8) k/uL Chloride 110 H (98-107) mmol/L BUN 40 H (9-20) mg/dL Creatinine 1.97 H (0.66-1.25) mg/dL Glucose 62 L (74-99) mg/dL POC Glucose (mg/dL) 55 L (75-99) mg/dL 08/29/20 08/29/20 Range/Units 10:56 12:06 RBC (4.30-5.90) m/uL Hgb (13.0-17.5) gm/dL Hct (39.0-53.0) % Lymphocytes # (1.0-4.8) k/uL Chloride (98-107) mmol/L BUN (9-20) mg/dL Creatinine (0.66-1.25) mg/dL Glucose (74-99) mg/dL POC Glucose (mg/dL) 126 H 123 H (75-99) mg/dL Assessment and Plan Assessment: Bilateral basal perihilar aspiration pneumonia Acute hypoxic respiratory failure appeared to be related to acute pulmonary edema and hypertensive heart failure Acute metabolic acidosis with some contribution from respiratory acidosis Chronic kidney disease Hypertensive urgency/emergency Large ventral hernia tender Altered mental status multifactorial processes neurology has been following Plan: And broad-spectrum antibiotics Continue Solu-Medrol Aspiration precautions Continue supplemental oxygen Bronchodilators Gentle diuresis Adequate control of blood pressure Computed tomography scan of the chest abdominal and pelvis Time with Patient: Greater than 30
--- NOTE | 2020-08-29 15:39 | P.PN ---
Progress Note - Text Progress Note Date: 08/29/20 Chief Complaint: Weakness with altered sensorium History of presenting complaint: This is a 75-year-old male with complex past medical history noted below significant for prior stroke and underlying dementia. Chronic stable medical conditions include atrial fibrillation, COPD, moderate cognitive impairment, diabetes, GERD, hyperlipidemia, hypertension, chronic kidney disease. Patient recently in the hospital from August 14 through August 16. Found to be orthostatic. [place] to be from autonomic dysfunction from underlying diabetes. Also had a pacemaker check. Patient recently had a generator change on August 02 with History obtained by the at the bedside. Patient and had gone out for a meal yesterday. When they came back to the car patient felt rather dizzy tired thought he may be blanking out. No chest pain or palpitation. Follows feeling rather tired and rundown. Patient is brought into the ER last night. When the EMS arrived patient not able to answer any questions. Patient is very confused. Unable to follow simple commands. The behavior was described from being aggressive combative crying and scared. The patient is moving all extremities. Patient last received some Ativan. And this morning when I saw the patient patient rather sleepy. Barely arousable. No fever reported. Admitted with acute sensorium/metabolic encephalopathy/delirium. Electrolyte abnormalities including hyperkalemia. Given Kayexalate. Patient had had aspiration pneumonitis. Put on IV Zosyn. Had an episode of hypoxia for the same. Today: This morning patient is wheezing quite a bit. Bronchospastic. On IV Zosyn. Patient took about 75% of his breakfast. Answering questions. Review of systems able to answer simple questions Active Medications Albuterol/Ipratropium (Ipratropium-Albuterol 3 Ml Neb) 3 ml INHALATION RT-QID [facility] Last Admin: 08/29/20 11:37 Dose: 3 ml Documented by: Albuterol/Ipratropium (Ipratropium-Albuterol 3 Ml Neb) 3 ml INHALATION RT-Q4H PRN PRN Reason: sob Apixaban (Apixaban 2.5 Mg Tablet) 2.5 mg PO BID [facility] Last Admin: 08/29/20 10:10 Dose: 2.5 mg Documented by: Aspirin (Aspirin 81 Mg) 81 mg PO DAILY [facility] Last Admin: 08/29/20 10:10 Dose: 81 mg Documented by: Atorvastatin Calcium (Atorvastatin 80 Mg Tab) 80 mg PO [facility] Last Admin: 08/28/20 21:20 Dose: 80 mg Documented by: Budesonide (Budesonide 1 Mg/2 Ml Nebu) 1 mg INHALATION RT-BID [facility] Last Admin: 08/29/20 13:02 Dose: 1 mg Documented by: Calcitriol (Calcitriol 0.25 Mcg Cap) 0.25 mcg PO TH [facility] Last Admin: 08/29/20 10:11 Dose: 0.25 mcg Documented by: Carvedilol (Carvedilol 3.125 Mg Tab) 3.125 mg PO AC-BID [facility] Last Admin: 08/29/20 06:16 Dose: 3.125 mg Documented by: Cholecalciferol (Cholecalciferol 25 Mcg (1000 Iu) Tablet) 25 mcg PO DAILY [facility] Last Admin: 08/29/20 10:10 Dose: 25 mcg Documented by: Cyanocobalamin (Cyanocobalamin 500 Mcg Tab) 1,000 mcg PO DAILY [facility] Last Admin: 08/29/20 10:10 Dose: 1,000 mcg Documented by: Formoterol Fumarate (Formoterol Fumarate 20 Mcg/2 Ml Nebu) 20 mcg INHALATION RT-BID [facility] Last Admin: 08/29/20 13:02 Dose: 20 mcg Documented by: Guaifenesin (Guaifenesin 600 Mg Tablet.Er) 600 mg PO QID [facility] Last Admin: 08/29/20 12:39 Dose: 600 mg Documented by: Haloperidol Lactate (Haloperidol Lactate 5 Mg/Ml 1 Ml Vial) 2 mg IVP QID PRN PRN Reason: Agitation Last Admin: 08/28/20 06:17 Dose: 2 mg Documented by: Piperacillin Sod/Tazobactam (Sod 3.375 gm/ Sodium Chloride) 100 mls @ 25 mls/hr IVPB Q8HR [facility] Insulin Aspart (Insulin Aspart (Novolog) 100 Unit/Ml Vial) 6 unit SQ AC-TID [facility] Last Admin: 08/29/20 12:39 Dose: Not Given Documented by: Insulin Aspart (Insulin Aspart (Novolog) 100 Unit/Ml Vial) 0 unit SQ ACHS [facility]; Protocol Last Admin: 08/29/20 12:39 Dose: Not Given Documented by: Insulin Detemir (Insulin Detemir (Levemir) 100 Unit/Ml Syr) 26 unit SQ [facility] Last Admin: 08/28/20 21:20 Dose: 26 unit Documented by: Latanoprost (Latanoprost 0.005% Ophth Drops 2.5 Ml Btl) 1 drops RIGHT EYE [facility] Last Admin: 08/29/20 04:05 Dose: Not Given Documented by: Lorazepam (Lorazepam 2 Mg/Ml Inj) 1 mg IV Q4HR PRN PRN Reason: Anxiety Last Admin: 08/28/20 07:10 Dose: 1 mg Documented by: Methylprednisolone Sodium Succinate (Methylprednisolone Sod Succi 40 Mg/Ml 1 Ml Vial) 40 mg IV Q8HR [facility] Last Admin: 08/29/20 12:39 Dose: 40 mg Documented by: Pantoprazole Sodium (Pantoprazole 40 Mg Tablet) 40 mg PO AC-BRKFST [facility] Last Admin: 08/29/20 06:16 Dose: 40 mg Documented by: Ranolazine (Ranolazine 500 Mg Tab.Er.12h) 1,000 mg PO BID [facility] Last Admin: 08/29/20 10:10 Dose: 1,000 mg Documented by: Senna (Sennosides 8.6 Mg Tab) 8.6 mg PO BID PRN PRN Reason: Constipation Last Admin: 08/26/20 12:43 Dose: 8.6 mg Documented by: Tamsulosin HCl (Tamsulosin 0.4 Mg Cap.Er.24h) 0.4 mg PO DAILY [facility] Last Admin: 08/29/20 10:10 Dose: 0.4 mg Documented by: Past medical history to include: Stroke, dementia, atrial fibrillation, COPD, moderate cognitive impairment, diabetes, GERD, hyperlipidemia, hypertension, chronic kidney disease, gait dysfunction uses a walker, pacemaker Social history: . Private hire help starting last week. Walker, and a Wheelchair. Patient been smoking for over 60 years. Down to a pack a day from 2 packs a day. On examination: VITAL SIGNS: Afebrile, 88, 26, 179/73, 97% 2 L GENERAL APPEARANCE: Laying in bed awake, short of breath wheezing HEENT: Normal external appearance of nose and ear. Oral cavity dry EYES: Pupils equal. Conjunctiva normal. NECK: JVD unable to assess Mass not palpable. RESPIRATORY: Respiratory effort increased unable to speak in full sentences, expiratory wheezing, diminished breath sounds prolonged expiration. CARDIOVASCULAR: First and second sounds normal. No edema. ABDOMEN: Soft. Liver and spleen not palpable. No tenderness. No mass palpable. PSYCHIATRY: Able to answer questions, anxious INVESTIGATIONS, reviewed in the clinical context: August 29: WBC 8.4 hemoglobin 12.1 platelets 312 potassium 4.6 BUN 40 creatinine 1 .97 August 28: WBC 7.2 hemoglobin 11.4 potassium 5 creatinine 2.09 Pro-calcitonin 0.06 EEG: No evidence of epilepsy. Evidence of mild encephalopathy. 2-D echocardiogram: EF 30-35%. Wall motion on normality. August 27: Potassium 4.9 creatinine 2.24 WBC 7.7 hemoglobin 11.3 platelets 320 potassium 5.9 bun 52 creatinine 2.46 glucose 186 UA positive for protein 2+ amorphous sediment few Urine drug screen negative Coronavirus [PCL]-not detected EKG tracing personally reviewed by me-right bundle branch block pattern, paced rhythm Chest x-ray film personally reviewed by me-[portable] cardiomegaly, AICD, u nderpenetrated film. Questionable venous prominence Assessment and plan: -Acute change in sensorium with agitated aggressive behavior. Likely acute delirium/metabolic encephalopathy.. Contribution from electrolyte abnormalities including hyperkalemia.-Some improvement - orthostatic hypertension, likely from autonomic dysfunction from diabetes Bilateral CHARLIE stockings. Fall precautions. -Persistent atrial fibrillation Paced rhythm. On eliquis -COPD in a current smoker, -acute worsening DuoNeb, and IV Solu-Medrol, inhaled steroids -Chronic nicotine dependence patient cigarette smoker Nicotine patch -Moderate cognitive impairment from late onset Alzheimer's dementia -Diabetes mellitus type 2, uncontrolled with hypoglycemia On Levemir. Follow Accu-Cheks. Stop scheduled insulin. 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 Lasix. Kayexalate. . Follow electrolytes -Obstructive sleep apnea, unable to wear a mask -Peripheral arterial disease On aspirin, Lipitor -Permanent pacemaker with generator change in August 02-2020 Pacemaker check done recently -Chronic gait dysfunction, and a baseline patient uses a walker -Chronic congestive heart failure from systolic dysfunction EF 30-35% Follow fluid status -Acute hypoxic respiratory failure from slow to respond Supplemental oxygen -Possible aspiration pneumonitis, chemical Given that procalcitonin is normal. IV Zosyn added Patient is made to sit up upright on the bed. DuoNeb added. Added IV Solu- Medrol and I inhaled steroids. Zosyn has been added. Patient did get some Lasix. Follow. Patient was hypoglycemic this morning. Scheduled insulin to be discontinued.
[2020-08-29] MEDS: NICOTINE 21MG/24HR PATCH TRANSDERM SCH (16:48)
[2020-08-29] MEDS: PIPERACILLIN-TAZOBACTAM 3.375 GM in SODIUM CHLORIDE 0.9% 100 ML IVPB SCH ×2 (16:48→23:15)
[2020-08-29 17:13] LABS: Glucose,Whole Blood 253 mg/dL (75-99)
[2020-08-29 20:31] LABS: Glucose,Whole Blood 242 mg/dL (75-99)
[2020-08-29] MEDS: ATORVASTATIN 80 MG TAB PO SCH (20:56)
[2020-08-29] MEDS: INSULIN DETEMIR (LEVEMIR) 100 UNIT/ML SYR SQ SCH (20:56)
[2020-08-30 06:47] LABS: Glucose,Whole Blood 199 mg/dL (75-99)
[2020-08-30] MEDS: SENNOSIDES 8.6 MG TAB PO PRN ×2 (06:52→15:46)
[2020-08-30] MEDS: carvediloL 3.125 MG TAB PO SCH ×2 (06:52→17:28)
[2020-08-30] MEDS: PANTOPRAZOLE 40 MG TABLET PO SCH (06:52)
[2020-08-30] MEDS: INSULIN ASPART (NovoLOG) 100 UNIT/ML VIAL SQ SCH ×7 (06:52→21:05)
[2020-08-30 07:40] LABS: Glucose,Whole Blood 194 mg/dL (75-99)
[2020-08-30] MEDS: IPRATROPIUM-ALBUTEROL 3 ML NEB INHALATION SCH ×4 (07:41→20:14)
[2020-08-30] MEDS: BUDESONIDE 1 MG/2 ML NEBU INHALATION SCH ×2 (07:41→20:14)
[2020-08-30] MEDS: FORMOTEROL FUMARATE 20 MCG/2 ML NEBU INHALATION SCH ×2 (07:41→20:14)
[2020-08-30] MEDS: methylPREDNISolone SOD SUCCI 40 MG/ML 1 ML VIAL IV SCH ×2 (08:03→15:46)
[2020-08-30] MEDS: PIPERACILLIN-TAZOBACTAM 3.375 GM in SODIUM CHLORIDE 0.9% 100 ML IVPB SCH ×2 (08:05→15:46)
[2020-08-30] MEDS: NICOTINE 21MG/24HR PATCH TRANSDERM SCH (08:05)
[2020-08-30] MEDS: APIXABAN 2.5 MG TABLET PO SCH ×2 (08:06→21:03)
[2020-08-30] MEDS: TAMSULOSIN 0.4 MG CAP.ER.24H PO SCH (08:06)
[2020-08-30] MEDS: RANOLAZINE 500 MG TAB.ER.12H PO SCH ×2 (08:06→21:03)
[2020-08-30] MEDS: guaiFENesin 600 MG TABLET.ER PO SCH ×4 (08:06→21:08)
[2020-08-30] MEDS: ASPIRIN 81 MG PO SCH (08:06)
[2020-08-30] MEDS: CYANOCOBALAMIN 500 MCG TAB PO SCH (08:07)
[2020-08-30] MEDS: CHOLECALCIFEROL 25 MCG (1000 IU) TABLET PO SCH (08:07)
[2020-08-30 08:18] LABS: Calcium 9.1 mg/dL (8.4-10.2); Potassium 4.7 mmol/L (3.5-5.1)
--- NOTE | 2020-08-30 11:17 | P.PN ---
Subjective Progress Note Date: 08/30/20 Principal diagnosis: Bilateral basal and perihilar pneumonia Acute hypoxic respiratory failure appeared to be related to acute pulmonary edema and hypertensive heart failure Acute metabolic acidosis with some contribution from respiratory acidosis Chronic kidney disease Hypertensive urgency/emergency Large ventral hernia tender Altered mental status multifactorial processes neurology has been following 08/30/2020, patient seen eval examined during the rounds labs reviewed medications reviewed care plan discussed, respiratory status remains stable denies any chest pain, patient remains on 2 L oxygen, remains on broad-spectrum antibiotics, afebrile hemodynamically stable, seen saturation 99% on 2 L 08/29/2020, patient seen eval examined during the rounds labs reviewed medications care plan discussed, respiratory status remains stable denies any chest pain, oxygenation is slightly better patient is on 2 L oxygen wheezing has improved with bronchodilator, patient appears to have aspirated and have aspiration pneumonia, in addition to fluid overload and CHF, would recommend to initiate patient on IV Zosyn, computed tomography scan of the chest as well as today's chest x-ray reviewed Patient is a 75-year-old male with advanced dementia and Alzheimer's disease, patient is a resident [facility] brought into emergency department for evaluation of altered mental status, this morning patient had a rapid response due to hypoxia also developed progressive worsening of agitation and hypertension, patient was confused tachypneic tachycardic FiO2 up from 2 L to 6 L oxygen saturation was 86, blood pressure was noted to be 2 8/88, status post hydralazine IV with some improvement in blood pressure, has bilateral crackles and wheezing, patient has been placed on bronchodilators also got Lasix, patient has a large ventral hernia, complaining of pain in the hernia computed tomography scan of the abdominal pelvis and chest has been ordered without contrast due to chronic renal failure, patient noted to have a significant metabolic acidosis with pH of 7.26 pCO2 of 49. PA O2 75, chest x- ray significant for cardiomegaly interstitial edema likely CHF with presence of pulmonary fibrosis and bilateral small effusion likely suggestive congestive heart failure Objective - Vital Signs Vital signs: Vital Signs Temp 98 F 08/30/20 07:59 Pulse 70 08/30/20 08:02 Resp 20 08/30/20 07:59 BP 164/70 08/30/20 07:59 Pulse Ox 99 08/30/20 07:59 Intake & Output 05/08/30/20 08/30/20 18:59 06:59 18:59 Intake Total 780 Output Total 950 Balance -170 Intake: Intake, IV Titration 100 Amount Piperacillin-Tazobactam 3 100 .375 gm In Sodium Chloride 0.9% 100 ml @ 25 mls/hr IVPB Q8HR [facility] Rx# :[id number] Oral 680 Output: Urine 950 Other: Voiding Method Indwelling Catheter Indwelling Catheter Indwelling Catheter - Exam - Constitutional General appearance: average body habitus, cooperative, disheveled, mild distress - EENT Eyes: PERRLA Ears: bilateral: normal - Neck Carotids: bilateral: upstroke normal - Respiratory Respiratory: bilateral: diminished, rales - Cardiovascular Rhythm: regular Heart sounds: normal: S1, S2 - Gastrointestinal Large ventral hernia General gastrointestinal: decreased bowel sounds, distended, tenderness - Integumentary Integumentary: normal turgor - Musculoskeletal Musculoskeletal: generalized weakness, strength equal bilaterally - Labs CBC & Chem 7: 08/29/20 06:43 08/30/20 06:40 Labs: Abnormal Lab Results - Last 24 Hours (Table) 08/29/20 08/29/20 08/29/20 Range/Units 12:06 17:11 20:24 Sodium (137-145) mmol/L Chloride (98-107) mmol/L BUN (9-20) mg/dL Creatinine (0.66-1.25) mg/dL Glucose (74-99) mg/dL POC Glucose (mg/dL) 123 H 253 H 242 H (75-99) mg/dL 08/30/20 08/30/20 08/30/20 Range/Units 06:40 06:46 07:39 Sodium 136 L (137-145) mmol/L Chloride 108 H (98-107) mmol/L BUN 43 H (9-20) mg/dL Creatinine 2.07 H (0.66-1.25) mg/dL Glucose 196 H (74-99) mg/dL POC Glucose (mg/dL) 199 H 194 H (75-99) mg/dL Assessment and Plan Assessment: Bilateral basal perihilar aspiration pneumonia Acute hypoxic respiratory failure appeared to be related to acute pulmonary edema and hypertensive heart failure Acute metabolic acidosis with some contribution from respiratory acidosis Chronic kidney disease Hypertensive urgency/emergency Large ventral hernia tender Altered mental status multifactorial processes neurology has been following Plan: Continue broad-spectrum antibiotics Continue Solu-Medrol Aspiration precautions Continue supplemental oxygen Bronchodilators Gentle diuresis Adequate control of blood pressure Computed tomography scan of the chest abdominal and pelvis Time with Patient: Greater than 30
[2020-08-30 12:35] LABS: Glucose,Whole Blood 172 mg/dL (75-99)
--- NOTE | 2020-08-30 16:56 | P.DS ---
Providers Date of admission: 08/26/20 05:02 Expected date of discharge: 08/31/20 Attending physician: Isaías Lord Consults: 08/26/20 05:02 Consult Physician Routine Consulting Provider: Bruce Ortiz Consult Reason/Comments: ams Do you want consulting provider notified?: Yes 08/26/20 06:41 Consult Physician Routine Consulting Provider: Carlos A Mccann Consult Reason/Comments: ans Do you want consulting provider notified?: Already Contacted Primary care physician: [place] [facility] Course: Chief Complaint: Weakness with altered sensorium History of presenting complaint: This is a 75-year-old male with complex past medical history noted below significant for prior stroke and underlying dementia. Chronic stable medical conditions include atrial fibrillation, COPD, moderate cognitive impairment, diabetes, GERD, hyperlipidemia, hypertension, chronic kidney disease. Patient recently in the hospital from August 14 through August 16. Found to be orthostatic. [place] to be from autonomic dysfunction from underlying diabetes. Also had a pacemaker check. Patient recently had a generator change on August 02 with History obtained by the at the bedside. Patient and had gone out for a meal yesterday. When they came back to the car patient felt rather dizzy tired thought he may be blanking out. No chest pain or palpitation. Follows feeling rather tired and rundown. Patient is brought into the ER last night. When the EMS arrived patient not able to answer any questions. Patient is very confused. Unable to follow simple commands. The behavior was described from being aggressive combative crying and scared. The patient is moving all extremities. Patient last received some Ativan. And this morning when I saw the patient patient rather sleepy. Barely arousable. No fever reported. Admitted with acute sensorium/metabolic encephalopathy/delirium. Electrolyte abnormalities including hyperkalemia. Given Kayexalate. Patient had had aspiration pneumonitis. Put on IV Zosyn. Had an episode of hypoxia for the same. Patient about of acute COPD exacerbation. Started on bronchodilators steroids. Today: Doing much better. Sitting up in a chair. Oral intake is improved. Breathing is improved. Pulse ox 97% on room air. Spoke to patient's , did discuss overall guarded prognosis. She has 24 7 care at home for him. Home health will be not be available until tomorrow morning. Patient be discharged first thing in the morning. Consultation: Dr. George Fregoso from pulmonary Dr. Jung from neurology Past medical history to include: Stroke, dementia, atrial fibrillation, COPD, moderate cognitive impairment, diabetes, GERD, hyperlipidemia, hypertension, chronic kidney disease, gait dysfunction uses a walker, pacemaker Social history: . Private hire help starting last week. Walker, and a Wheelchair. Patient been smoking for over 60 years. Down to a pack a day from 2 packs a day . On examination: VITAL SIGNS: 98, 68, 20, 133 x 63, 99% on 2 L GENERAL APPEARANCE: Sitting up in a chair, breathing much improved HEENT: Normal external appearance of nose and ear. Oral cavity dry EYES: Pupils equal. Conjunctiva normal. NECK: JVD unable to assess Mass not palpable. RESPIRATORY: Respiratory effort increased decreased breath sounds CARDIOVASCULAR: First and second sounds normal. No edema. ABDOMEN: Soft. Liver and spleen not palpable. No tenderness. No mass palpable. PSYCHIATRY: Answering questions INVESTIGATIONS, reviewed in the clinical context: August 22: Potassium 4.7 creatinine 2.07 August 29: WBC 8.4 hemoglobin 12.1 platelets 312 potassium 4.6 BUN 40 creatinine 1.97 August 28: WBC 7.2 hemoglobin 11.4 potassium 5 creatinine 2.09 Pro-calcitonin 0.06 EEG: No evidence of epilepsy. Evidence of mild encephalopathy. 2-D echocardiogram: EF 30-35%. Wall motion on normality. August 27: Potassium 4.9 creatinine 2.24 WBC 7.7 hemoglobin 11.3 platelets 320 potassium 5.9 bun 52 creatinine 2.46 glucose 186 UA positive for protein 2+ amorphous sediment few Urine drug screen negative Coronavirus [PCL]-not detected EKG tracing personally reviewed by me-right bundle branch block pattern, paced rhythm Chest x-ray film personally reviewed by me-[portable] cardiomegaly, AICD, underpenetrated film. Questionable venous prominence Assessment and plan: -Acute metabolic encephalopathy with delirium, multifactorial-improved - orthostatic hypertension, likely from autonomic dysfunction from diabetes Bilateral CHARLIE stockings. Fall precautions. -Persistent atrial fibrillation Paced rhythm. On eliquis -COPD in a current smoker, -acute worsening followed by improvement DuoNeb, and IV Solu-Medrol, inhaled steroids. DC home on tapering doses of steroids and bronchodilators. -Chronic nicotine dependence patient cigarette smoker Nicotine patch -Moderate cognitive impairment from late onset Alzheimer's dementia -Diabetes mellitus type 2, uncontrolled with hyperglycemia On Levemir. Follow Accu-Cheks. 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 Lasix. Kayexalate. . Follow electrolytes -Obstructive sleep apnea, unable to wear a mask -Peripheral arterial disease On aspirin, Lipitor -Permanent pacemaker with generator change in August 02-2020 Pacemaker check done recently -Chronic gait dysfunction, and a baseline patient uses a walker -Chronic congestive heart failure from systolic dysfunction EF 30-35% Follow fluid status -Acute hypoxic respiratory failure from aspiration pneumonitis-improved Pulse ox checked on room air. -Possible aspiration pneumonitis, chemical Given that procalcitonin is normal. IV Zosyn added. Will be changed over to Augmentin Disposition: Home Patient Condition at Discharge: Fair Plan - Discharge Summary Discharge Rx Participant: No New Discharge Prescriptions: New Amoxicillin/Potassium Clav [Augmentin 875-125 Tablet] 1 tab PO Q12HR 1 Days #6 tab Ipratropium-Albuterol Nebulize [Duoneb 0.5 mg-3 mg/3 ml Soln] 3 ml INHALATION TID #90 ml Nicotine 21Mg/24Hr Patch [Habitrol] 1 patch TRANSDERM DAILY #30 patch predniSONE 0 mg PO DIRECTED #10 tab Continue Famotidine [Pepcid] 20 mg PO DAILY INSULIN ASPART (NovoLOG) [NovoLOG (formulary)] See Protocol SQ AC-TID Cholecalciferol [Vitamin D3 (25 Mcg = 1000 Iu)] 1,000 unit PO DAILY Apixaban [Eliquis] 2.5 mg PO BID #60 tablet Carvedilol [Coreg] 3.125 mg PO BID Atorvastatin Calcium [Lipitor] 80 mg PO HS Ranolazine [Ranolazine ER] 1,000 mg PO BID Aspirin EC [Ecotrin Low Dose] 81 mg PO DAILY Sennosides [Senna] 8.6 mg PO BID PRN PRN Reason: Constipation Tamsulosin HCl [Flomax] 0.4 mg PO DAILY Latanoprost/Pf [Latanoprost 0.005% Eye Drop] 1 drop RIGHT EYE HS calcitrioL [Calcitriol] 0.25 mcg PO TH Omeprazole 40 mg PO DAILY Changed Insulin Glargine,Hum.rec.anlog [Lantus Solostar] 26 unit SQ HS #0 INSULIN ASPART (NovoLOG) [NovoLOG (formulary)] 4 unit SQ AC-TID #0 vial Discontinued Donepezil [Aricept] 5 mg PO HS #30 tab Furosemide [Lasix] 40 mg PO Q48H Memantine [Namenda] 10 mg PO DAILY Discharge Medication List Famotidine [Pepcid] 20 mg PO DAILY 01/16/18 [History] INSULIN ASPART (NovoLOG) [NovoLOG (formulary)] See Protocol SQ AC-TID 01/16/18 [History] Cholecalciferol [Vitamin D3 (25 Mcg = 1000 Iu)] 1,000 unit PO DAILY 12/30/18 [History] Apixaban [Eliquis] 2.5 mg PO BID #60 tablet 01/11/19 [Rx] Atorvastatin Calcium [Lipitor] 80 mg PO HS 06/16/20 [History] Carvedilol [Coreg] 3.125 mg PO BID 06/16/20 [History] Ranolazine [Ranolazine ER] 1,000 mg PO BID 06/16/20 [History] Aspirin EC [Ecotrin Low Dose] 81 mg PO DAILY 08/14/20 [History] Sennosides [Senna] 8.6 mg PO BID PRN 08/14/20 [History] calcitrioL [Calcitriol] 0.25 mcg PO TH 08/14/20 [History] Latanoprost/Pf [Latanoprost 0.005% Eye Drop] 1 drop RIGHT EYE HS 08/25/20 [History] Omeprazole 40 mg PO DAILY 08/25/20 [History] Tamsulosin HCl [Flomax] 0.4 mg PO DAILY 08/25/20 [History] Amoxicillin/Potassium Clav [Augmentin 875-125 Tablet] 1 tab PO Q12HR 1 Days #6 tab 08/30/20 [Rx] INSULIN ASPART (NovoLOG) [NovoLOG (formulary)] 4 unit SQ AC-TID #0 vial 08/30/20 [Rx] Insulin Glargine,Hum.rec.anlog [Lantus Solostar] 26 unit SQ HS #0 08/30/20 [Rx] Ipratropium-Albuterol Nebulize [Duoneb 0.5 mg-3 mg/3 ml Soln] 3 ml INHALATION TID #90 ml 08/30/20 [Rx] Nicotine 21Mg/24Hr Patch [Habitrol] 1 patch TRANSDERM DAILY #30 patch 08/30/20 [Rx] predniSONE 0 mg PO DIRECTED #10 tab 08/30/20 [Rx] Follow up Appointment(s)/Referral(s): [facility], [NON-STAFF] - Jeff Roberts MD [STAFF PHYSICIAN] - 1 Week (obstructive uropathy) Bridger Isabel MD [Primary Care Provider] - 1-2 days Rick Newton MD [STAFF PHYSICIAN] - 1 Week Activity/Diet/Wound Care/Special Instructions: dc with gina
[2020-08-30 17:24] LABS: Glucose,Whole Blood 350 mg/dL (75-99)
[2020-08-30 20:08] LABS: Glucose,Whole Blood 331 mg/dL (75-99)
[2020-08-30] MEDS: INSULIN DETEMIR (LEVEMIR) 100 UNIT/ML SYR SQ SCH (21:03)
[2020-08-30] MEDS: ATORVASTATIN 80 MG TAB PO SCH (21:03)
[2020-08-30] MEDS: LATANOPROST 0.005% OPHTH DROPS 2.5 ML BTL RIGHT EYE SCH (21:04)
[2020-08-31 02:29] VITALS: TEMP 97.5
[2020-08-31 07:08] LABS: Glucose,Whole Blood 181 mg/dL (75-99)
[2020-08-31 07:36] VITALS: BP 149/61; RESP 18
[2020-08-31] MEDS: FORMOTEROL FUMARATE 20 MCG/2 ML NEBU INHALATION SCH (08:38)
[2020-08-31] MEDS: BUDESONIDE 1 MG/2 ML NEBU INHALATION SCH (08:38)
[2020-08-31] MEDS: IPRATROPIUM-ALBUTEROL 3 ML NEB INHALATION SCH (08:38)
[2020-08-31 08:44] VITALS: PULSE 72
[2020-08-31] MEDS ORDERED: AMOXIC-POT CLAV 875-125MG 1 EACH TAB PO SCH (09:00)
[2020-08-31] MEDS ORDERED: predniSONE 20 MG TAB PO SCH (09:00)
[2020-08-31] MEDS: INSULIN ASPART (NovoLOG) 100 UNIT/ML VIAL SQ SCH ×2 (09:25→09:26)
[2020-08-31] MEDS: NICOTINE 21MG/24HR PATCH TRANSDERM SCH (09:29)
[2020-08-31] MEDS: APIXABAN 2.5 MG TABLET PO SCH (09:30)
[2020-08-31] MEDS: carvediloL 3.125 MG TAB PO SCH (09:30)
[2020-08-31] MEDS: CYANOCOBALAMIN 500 MCG TAB PO SCH (09:30)
[2020-08-31] MEDS: PANTOPRAZOLE 40 MG TABLET PO SCH (09:30)
[2020-08-31] MEDS: ASPIRIN 81 MG PO SCH (09:30)
[2020-08-31] MEDS: TAMSULOSIN 0.4 MG CAP.ER.24H PO SCH (09:30)
[2020-08-31] MEDS: guaiFENesin 600 MG TABLET.ER PO SCH (09:30)
[2020-08-31] MEDS: CHOLECALCIFEROL 25 MCG (1000 IU) TABLET PO SCH (09:31)
[2020-08-31] MEDS: RANOLAZINE 500 MG TAB.ER.12H PO SCH (10:39)
== END 2020-08-31 11:06 | DRG 177 ==
LOC: EC 23:04 → 3SCARD 08-26 05:02 → 4SSUR 08-30 22:37
PROVIDERS: ADMIT Hospitalist; ATTEND Hospitalist
DX: J69.0 Pneumonitis due to inhalation of food and vomit (principal); G92 Toxic encephalopathy; G93.41 Metabolic encephalopathy; J96.01 Acute respiratory failure with hypoxia; F02.81 Dementia in other diseases classified elsewhere, unspecified severity, with behavioral disturbance; F05 Delirium due to known physiological condition; I13.0 Hypertensive heart and chronic kidney disease with heart failure and stage 1 through stage 4 chronic kidney disease, or unspecified chronic kidney disease; I45.2 Bifascicular block; I48.19 Other persistent atrial fibrillation; N17.9 Acute kidney failure, unspecified; Z20.822 Contact with and (suspected) exposure to COVID-19; I50.22 Chronic systolic (congestive) heart failure; E87.4 Mixed disorder of acid-base balance; J44.1 Chronic obstructive pulmonary disease with (acute) exacerbation; G30.1 Alzheimer's disease with late onset; E11.22 Type 2 diabetes mellitus with diabetic chronic kidney disease; E11.51 Type 2 diabetes mellitus with diabetic peripheral angiopathy without gangrene; E11.43 Type 2 diabetes mellitus with diabetic autonomic (poly)neuropathy; E11.649 Type 2 diabetes mellitus with hypoglycemia without coma; N18.30 Chronic kidney disease, stage 3 unspecified; J44.9 Chronic obstructive pulmonary disease, unspecified; J84.10 Pulmonary fibrosis, unspecified; Z79.4 Long term (current) use of insulin; Z66 Do not resuscitate; T42.4X5A Adverse effect of benzodiazepines, initial encounter; Y92.239 Unspecified place in hospital as the place of occurrence of the external cause; I16.0 Hypertensive urgency; E87.5 Hyperkalemia; K43.9 Ventral hernia without obstruction or gangrene; K21.9 Gastro-esophageal reflux disease without esophagitis; G47.33 Obstructive sleep apnea (adult) (pediatric); E78.5 Hyperlipidemia, unspecified; R45.1 Restlessness and agitation; M47.812 Spondylosis without myelopathy or radiculopathy, cervical region; R26.9 Unspecified abnormalities of gait and mobility; R29.6 Repeated falls; F32.9 Major depressive disorder, single episode, unspecified; F41.9 Anxiety disorder, unspecified; F17.210 Nicotine dependence, cigarettes, uncomplicated; I25.2 Old myocardial infarction; Z95.0 Presence of cardiac pacemaker; Z89.021 Acquired absence of right finger(s); Z88.5 Allergy status to narcotic agent; Z79.01 Long term (current) use of anticoagulants; Z79.899 Other long term (current) drug therapy; Z79.82 Long term (current) use of aspirin; Z86.73 Personal history of transient ischemic attack (TIA), and cerebral infarction without residual deficits; Z87.440 Personal history of urinary (tract) infections; Z80.9 Family history of malignant neoplasm, unspecified; E11.65 Type 2 diabetes mellitus with hyperglycemia; K59.00 Constipation, unspecified; Z96.1 Presence of intraocular lens
CPT/HCPCS: 36415; 36600; 70450; 71045; 71250; 72125; 74176; 80048; 80053; 80061; 80143; 80179; 80306; 80320; 81001; 82140; 82550; 82607; 82746; 82805; 83036; 83605; 83880; 84145; 84443; 84484; 85025; 85610; 85730; 87635; 93005; 93308; 93880; 94640; 94760; 95816; 96374; 99285

== ENCOUNTER 2020-12-05 15:30 | Inpatient (IN) | payer MEDICARE ==
[2020-12-05] MEDS ORDERED: SODIUM CHLORIDE 0.9% 500 ML 500 ML IV STA (15:44)
[2020-12-05] MEDS ORDERED: SODIUM CHLORIDE 0.9% 1,000 ML IV STA (15:44)
[2020-12-05] MEDS ORDERED: ALBUTEROL HFA INHALER INHALATION STA (15:45)
--- NOTE | 2020-12-05 15:57 | ED ---
SOB HPI - General Chief Complaint: Shortness of Breath Stated Complaint: SOB Time Seen by Provider: 12/05/20 15:30 Source: EMS, RN notes reviewed, old records reviewed Mode of arrival: EMS Limitations: no limitations - History of Present Illness Initial Comments: 75-year-old male with a history of multiple medical issues including COPD and chronic kidney disease CVA TIA with a mental status is alert oriented times one who was sent here from a local nursing facility due to shortness of breath and feeling to thrive decreased oral intake and being tested Covid positive today. This is apparently a breakthrough case. The facility has no really care for Covid positive patients. No other complaints or information available at this time the patient himself is a poor historian MD Complaint: shortness of breath - Related Data Home Medications Medication Instructions Recorded Confirmed INSULIN ASPART (NovoLOG) [NovoLOG See Protocol SQ AC-TID 01/16/18 12/05/20 (formulary)] Atorvastatin Calcium [Lipitor] 80 mg PO HS 06/16/20 12/05/20 Carvedilol [Coreg] 3.125 mg PO BID 06/16/20 12/05/20 Ranolazine [Ranolazine ER] 1,000 mg PO BID 06/16/20 12/05/20 Aspirin EC [Ecotrin Low Dose] 81 mg PO DAILY 08/14/20 12/05/20 Sennosides [Senna] 8.6 mg PO BID 08/14/20 12/05/20 Latanoprost/Pf [Latanoprost 0.005% 1 drop RIGHT EYE HS 08/25/20 12/05/20 Eye Drop] Omeprazole 40 mg PO DAILY 08/25/20 12/05/20 Tamsulosin HCl [Flomax] 0.4 mg PO DAILY 08/25/20 12/05/20 Acetaminophen [Tylenol] 650 mg PO Q4H PRN 12/05/20 12/05/20 Insulin Glargine,Hum.rec.anlog 25 unit SQ DAILY 12/05/20 12/05/20 [Lantus Solostar Pen] Previous Rx's Medication Instructions Recorded Apixaban [Eliquis] 2.5 mg PO BID #60 tablet 01/11/19 Allergies Allergy/AdvReac Type Severity Reaction Status Date / Time codeine Allergy Unknown Verified 12/05/20 17:13 [From Tylenol-Codeine #3] Review of Systems ROS Statement: Those systems with pertinent positive or pertinent negative responses have been documented in the HPI. ROS Other: All systems not noted in ROS Statement are negative. Limitations: ROS unobtainable due to patients medical condition Past Medical History Past Medical History: Atrial Fibrillation, Heart Failure, COPD, CVA/TIA, Dementia, Diabetes Mellitus, GERD/Reflux, Hyperlipidemia, Hypertension, Myocardial Infarction ([place]), Renal Disease, Sleep Apnea/CPAP/BIPAP, Vascular D isorder Additional Past Medical History / Comment(s): IDDM type II, 2006 CVA-more sleepy since, seizures ruled out by [facility], DION-did not tolerate mask, chronic kidney disease stage III, peripheral vascular disease, previous history of UTI with E. 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 Mother Family Medical History: Cancer Additional Family Medical History / Comment(s): Pt/spouse do not recall type of cancer. Brother(s) Family Medical History: Cancer General Exam - General Exam Comments Initial Comments: This is a well-developed well-nourished awake and alert times one male demonstrates audible wheezing Limitations: no limitations General appearance: alert, in distress (Mild distress) Head exam: Present: atraumatic, normocephalic, normal inspection Eye exam: Present: normal appearance, PERRL, EOMI. Absent: scleral icterus, conjunctival injection, periorbital swelling ENT exam: Present: mucous membranes dry Neck exam: Present: normal inspection, full ROM, other (Stridor JVD or bruits). Absent: tenderness, meningismus, lymphadenopathy Respiratory exam: Present: wheezes, decreased breath sounds. Absent: respiratory distress, rales, rhonchi, stridor Cardiovascular Exam: Present: regular rate, normal rhythm, normal heart sounds. Absent: systolic murmur, diastolic murmur, rubs, gallop, clicks GI/Abdominal exam: Present: soft, normal bowel sounds, hernia (Bentyl hernia noted). Absent: distended, tenderness, guarding, rebound, rigid, bruit, pulsatile mass Rectal exam: Present: deferred Extremities exam: Present: normal inspection, full ROM, normal capillary refill. Absent: tenderness, pedal edema, joint swelling, calf tenderness Back exam: Present: normal inspection Neurological exam: Present: alert, altered, CN II-XII intact Psychiatric exam: Present: normal affect, normal mood Skin exam: Present: warm, dry, intact, normal color. Absent: rash Course Vital Signs 12/05/20 12/05/20 12/05/20 15:37 15:45 16:41 Temperature 98.5 F Pulse Rate 71 68 Respiratory 18 20 20 Rate Blood Pressure 149/58 131/81 O2 Sat by Pulse 97 97 Oximetry 12/05/20 12/05/20 17:41 18:00 Temperature Pulse Rate 65 70 Respiratory 20 20 Rate Blood Pressure 133/64 134/66 O2 Sat by Pulse 97 97 Oximetry Medical Decision Making - Medical Decision Making I did review the old charts were available I did discuss the findings with Dr. Lord patient will be admitted for inpatient evaluation and treatment for CHF, elevated troponin, covid 19 - Lab Data Result diagrams: 12/05/20 16:31 12/05/20 16:31 Lab Results 12/05/20 12/05/20 12/05/20 Range/Units 16:31 16:31 16:31 WBC 6.1 (3.8-10.6) k/uL RBC 3.27 L (4.30-5.90) m/uL Hgb 10.1 L (13.0-17.5) gm/dL Hct 31.3 L (39.0-53.0) % MCV 95.8 (80.0-100.0) fL MCH 30.9 (25.0-35.0) pg MCHC 32.3 (31.0-37.0) g/dL RDW 15.4 (11.5-15.5) % Plt Count 308 (150-450) k/uL MPV 6.8 Neutrophils % 73 % Lymphocytes % 15 % Monocytes % 5 % Eosinophils % 3 % Basophils % 1 % Neutrophils # 4.4 (1.3-7.7) k/uL Lymphocytes # 0.9 L (1.0-4.8) k/uL Monocytes # 0.3 (0-1.0) k/uL Eosinophils # 0.2 (0-0.7) k/uL Basophils # 0.1 (0-0.2) k/uL Hypochromasia Slight PT 10.9 (9.0-12.0) sec INR 1.0 (<1.2) APTT 25.4 (22.0-30.0) sec D-Dimer 0.54 (<0.60) mg/L FEU Sodium 138 (137-145) mmol/L Potassium 5.2 H (3.5-5.1) mmol/L Chloride 110 H (98-107) mmol/L Carbon Dioxide 19 L (22-30) mmol/L Anion Gap 9 mmol/L BUN 50 H (9-20) mg/dL Creatinine 2.42 H (0.66-1.25) mg/dL Est GFR (CKD-EPI)AfAm 29 (>60 ml/min/1.73 sqM) Est GFR (CKD-EPI)NonAf 25 (>60 ml/min/1.73 sqM) Glucose 158 H (74-99) mg/dL Plasma Lactic Acid Josias (0.7-2.0) mmol/L Calcium 9.0 (8.4-10.2) mg/dL Magnesium 1.7 (1.6-2.3) mg/dL Total Bilirubin 0.4 (0.2-1.3) mg/dL AST 15 L (17-59) U/L ALT 9 (4-49) U/L Alkaline Phosphatase 86 (38-126) U/L Creatine Kinase 52 L (55-170) U/L Troponin I (0.000-0.034) ng/mL NT-Pro-B Natriuret Pep pg/mL Total Protein 6.5 (6.3-8.2) g/dL Albumin 3.4 L (3.5-5.0) g/dL Influenza Type A (PCR) (Not Detectd) Influenza Type B (PCR) (Not Detectd) RSV (PCR) (Not Detectd) SARS-CoV-2 (PCR) (Not Detectd) 12/05/20 12/05/20 12/05/20 Range/Units 16:31 16:31 16:31 WBC (3.8-10.6) k/uL RBC (4.30-5.90) m/uL Hgb (13.0-17.5) gm/dL Hct (39.0-53.0) % MCV (80.0-100.0) fL MCH (25.0-35.0) pg MCHC (31.0-37.0) g/dL RDW (11.5-15.5) % Plt Count (150-450) k/uL MPV Neutrophils % % Lymphocytes % % Monocytes % % Eosinophils % % Basophils % % Neutrophils # (1.3-7.7) k/uL Lymphocytes # (1.0-4.8) k/uL Monocytes # (0-1.0) k/uL Eosinophils # (0-0.7) k/uL Basophils # (0-0.2) k/uL Hypochromasia PT (9.0-12.0) sec INR (<1.2) APTT (22.0-30.0) sec D-Dimer (<0.60) mg/L FEU Sodium (137-145) mmol/L Potassium (3.5-5.1) mmol/L Chloride (98-107) mmol/L Carbon Dioxide (22-30) mmol/L Anion Gap mmol/L BUN (9-20) mg/dL Creatinine (0.66-1.25) mg/dL Est GFR (CKD-EPI)AfAm (>60 ml/min/1.73 sqM) Est GFR (CKD-EPI)NonAf (>60 ml/min/1.73 sqM) Glucose (74-99) mg/dL Plasma Lactic Acid Josias 1.0 (0.7-2.0) mmol/L Calcium (8.4-10.2) mg/dL Magnesium (1.6-2.3) mg/dL Total Bilirubin (0.2-1.3) mg/dL AST (17-59) U/L ALT (4-49) U/L Alkaline Phosphatase (38-126) U/L Creatine Kinase (55-170) U/L Troponin I 0.037 H* (0.000-0.034) ng/mL NT-Pro-B Natriuret Pep 9810 pg/mL Total Protein (6.3-8.2) g/dL Albumin (3.5-5.0) g/dL Influenza Type A (PCR) (Not Detectd) Influenza Type B (PCR) (Not Detectd) RSV (PCR) (Not Detectd) SARS-CoV-2 (PCR) (Not Detectd) 12/05/20 Range/Units Unknown WBC (3.8-10.6) k/uL RBC (4.30-5.90) m/uL Hgb (13.0-17.5) gm/dL Hct (39.0-53.0) % MCV (80.0-100.0) fL MCH (25.0-35.0) pg MCHC (31.0-37.0) g/dL RDW (11.5-15.5) % Plt Count (150-450) k/uL MPV Neutrophils % % Lymphocytes % % Monocytes % % Eosinophils % % Basophils % % Neutrophils # (1.3-7.7) k/uL Lymphocytes # (1.0-4.8) k/uL Monocytes # (0-1.0) k/uL Eosinophils # (0-0.7) k/uL Basophils # (0-0.2) k/uL Hypochromasia PT (9.0-12.0) sec INR (<1.2) APTT (22.0-30.0) sec D-Dimer (<0.60) mg/L FEU Sodium (137-145) mmol/L Potassium (3.5-5.1) mmol/L Chloride (98-107) mmol/L Carbon Dioxide (22-30) mmol/L Anion Gap mmol/L BUN (9-20) mg/dL Creatinine (0.66-1.25) mg/dL Est GFR (CKD-EPI)AfAm (>60 ml/min/1.73 sqM) Est GFR (CKD-EPI)NonAf (>60 ml/min/1.73 sqM) Glucose (74-99) mg/dL Plasma Lactic Acid Josias (0.7-2.0) mmol/L Calcium (8.4-10.2) mg/dL Magnesium (1.6-2.3) mg/dL Total Bilirubin (0.2-1.3) mg/dL AST (17-59) U/L ALT (4-49) U/L Alkaline Phosphatase (38-126) U/L Creatine Kinase (55-170) U/L Troponin I (0.000-0.034) ng/mL NT-Pro-B Natriuret Pep pg/mL Total Protein (6.3-8.2) g/dL Albumin (3.5-5.0) g/dL Influenza Type A (PCR) Not Detected (Not Detectd) Influenza Type B (PCR) Not Detected (Not Detectd) RSV (PCR) Not Detected (Not Detectd) SARS-CoV-2 (PCR) Detected A (Not Detectd) - EKG Data -: EKG Interpreted by Me EKG Comments: fibrillation rate 71 QRS 142 QT since QTC 432/469 left bundle-branch block pattern some artifact present - Radiology Data Radiology results: report reviewed (Imaging reviewed evidence of increased interstitial markings consistent with CHF), image reviewed Critical Care Time Critical Care Time: Yes Total Critical Care Time: 32 Critical Care Time: Critical care time includes initial presentation with history physical labs x- rays discussed with paramedics upon arrival review of old charting was available. Evaluation the patient admission orders and documentation of the above. Disposition Clinical Impression: Congestive heart failure, COVID-19, Elevated troponin, Acute kidney injury Disposition: ADMITTED IP TO THIS HOSP Condition: Fair Referrals: Tha Baeza MD [Primary Care Provider] - 1-2 days
--- NOTE | 2020-12-05 16:06 | XR ---
EXAMINATION TYPE: XR chest 2V DATE OF EXAM: 12/05/2020 COMPARISON: Chest x-ray August 29, 2020 HISTORY: Difficulty in breathing and weakness. TECHNIQUE: Frontal and lateral views of the chest are obtained. FINDINGS: There is persistent cardiomegaly with atherosclerotic aorta and multiple IV pacemaker/defi brillator. New small right greater than left pleural effusions and [id number] interstitial suad a on background chronic parenchymal changes. Osseous structures remain demineralized IMPRESSION: Suspect CHF exacerbation on background chronic changes.
[2020-12-05 16:39] LABS: Basophils # (A) 0.1 k/uL (0-0.2); Basophils % (A) 1 %; Eosinophils # (A) 0.2 k/uL (0-0.7); Eosinophils % (A) 3 %; HCT 31.3 % (39.0-53.0); HGB 10.1 gm/dL (13.0-17.5); Hypochromasia Slight; Lymphocytes # (A) 0.9 k/uL (1.0-4.8); Lymphocytes % (A) 15 %; MCH 30.9 pg (25.0-35.0); MCHC 32.3 g/dL (31.0-37.0); MCV 95.8 fL (80.0-100.0); Mean Platelet Volume 6.8; Monocytes # (A) 0.3 k/uL (0-1.0); Monocytes % (A) 5 %; Neutrophils # (A) 4.4 k/uL (1.3-7.7); Neutrophils % (A) 73 %; Platelet Count 308 k/uL (150-450); RBC 3.27 m/uL (4.30-5.90); RDW 15.4 % (11.5-15.5); WBC 6.1 k/uL (3.8-10.6)
[2020-12-05 16:52] LABS: Albumin 3.4 g/dL (3.5-5.0); Magnesium 1.7 mg/dL (1.6-2.3); Potassium 5.2 mmol/L (3.5-5.1); Total Bilirubin 0.4 mg/dL (0.2-1.3); Total Protein 6.5 g/dL (6.3-8.2)
[2020-12-05 17:02] LABS: Partial Thromboplastin Time 25.4 sec (22.0-30.0); Prothrombin Time 10.9 sec (9.0-12.0)
[2020-12-05] MEDS ORDERED: FUROSEMIDE 10 MG/ML 4 ML VIAL IV STA (17:45)
[2020-12-05] MEDS ORDERED: ACETAMINOPHEN TAB 325 MG TAB PO PRN (18:59)
[2020-12-05] MEDS: FUROSEMIDE 10 MG/ML 4 ML VIAL IV SCH (20:35)
[2020-12-05] MEDS: SODIUM CHLORIDE 0.9% 1,000 ML IV SCH (20:36)
[2020-12-05] MEDS: SENNOSIDES 8.6 MG TAB PO SCH (21:26)
[2020-12-05] MEDS: RANOLAZINE 500 MG TAB.ER.12H PO SCH (21:26)
[2020-12-05] MEDS: ATORVASTATIN 80 MG TAB PO SCH (21:26)
[2020-12-05] MEDS: APIXABAN 2.5 MG TABLET PO SCH (21:26)
[2020-12-05] MEDS: carvediloL 3.125 MG TAB PO SCH (21:27)
[2020-12-05] MEDS: ALBUTEROL HFA INHALER INHALATION SCH (21:31)
[2020-12-05] MEDS: LATANOPROST 0.005% OPHTH DROPS 2.5 ML BTL RIGHT EYE SCH (22:40)
[2020-12-06] MEDS: ALBUTEROL HFA INHALER INHALATION SCH ×7 (00:32→23:55)
[2020-12-06] MEDS: PANTOPRAZOLE 40 MG TABLET PO SCH (06:17)
[2020-12-06] MEDS: carvediloL 3.125 MG TAB PO SCH ×2 (06:18→16:46)
[2020-12-06] MEDS: FUROSEMIDE 10 MG/ML 4 ML VIAL IV SCH (06:18)
[2020-12-06 06:33] LABS: Glucose,Whole Blood 57 mg/dL (75-99)
[2020-12-06 06:33] LABS: Glucose,Whole Blood 54 mg/dL (75-99)
[2020-12-06 06:48] LABS: Glucose,Whole Blood 73 mg/dL (75-99)
[2020-12-06] MEDS ORDERED: INSULIN DETEMIR (LEVEMIR) 100 UNIT/ML SYR SQ SCH (07:00)
[2020-12-06] MEDS ORDERED: ASPIRIN 325 MG TAB PO SCH (09:00)
[2020-12-06] MEDS ORDERED: NON FORMULARY DRUG (Aspirin Ec 81 MG Tablet.Dr) PO SCH (09:00)
[2020-12-06] MEDS: TAMSULOSIN 0.4 MG CAP.ER.24H PO SCH (09:23)
[2020-12-06] MEDS: RANOLAZINE 500 MG TAB.ER.12H PO SCH ×2 (09:23→20:35)
[2020-12-06] MEDS: APIXABAN 2.5 MG TABLET PO SCH ×2 (09:23→20:35)
[2020-12-06] MEDS: SENNOSIDES 8.6 MG TAB PO SCH ×2 (09:23→20:35)
[2020-12-06] MEDS: SODIUM CHLORIDE 0.9% 1,000 ML IV SCH (09:24)
--- NOTE | 2020-12-06 11:06 | P.CRDCN ---
History of Present Illness Consult date: 12/06/20 Chief complaint: Shortness of breath History of present illness: This is a pleasant 75-year-old gentleman with extensive cardiac history consiste nt off severe cardiomyopathy and status post AICD, chronic kidney disease, paroxysmal atrial fibrillation, underlying dementia, diabetes and hypertension and dyslipidemia. We asked to see the patient as a consultation for abnormal cardiac enzymes. The patient somewhat is a poor historian and he does have also mild underlying dementia. He presented to the hospital not feeling well. He was experiencing symptoms of increasing shortness of breath and more tired and fatigued without any energy. He was tested positive for COVID 19 infection. He denies any symptoms of chest pain or chest discomfort but clearly he was more short of breath. He denies any fever or chills. He denies any dizziness or lightheadedness or any presyncope or syncope. He does have chronic kidney disease. We consulted to see the patient mainly because of abnormal cardiac enzymes and abnormal troponin which is likely secondary to his severe cardiomyopathy he has with the last echo showing an EF around 30% as well as chronic kidney disease. As a mentioned earlier he did not have any symptoms of chest pain or chest discomfort. At this point and in view of the absence of chest pain or chest discomfort and any evidence of ischemia with advise a conservative medical approach and continue antiplatelet as well as anticoagulation and also anti-ischemic medication. He is on Lasix and we'll continue that for the next 24 hours and continue monitoring the kidney function and electrolytes Past Medical History Past Medical History: Atrial Fibrillation, Heart Failure, COPD, CVA/TIA, Dementia, Diabetes Mellitus, GERD/Reflux, Hyperlipidemia, Hypertension, Myocardial Infarction ([place]), Renal Disease, Sleep Apnea/CPAP/BIPAP, Vascular Disorder Additional Past Medical History / Comment(s): IDDM type II, 2006 CVA-more sleepy since, seizures ruled out by [facility], DION-did not tolerate mask, chronic kidney disease stage III, peripheral vascular disease, previous history of UTI with E. 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 Smoking Status: Former smoker Past Alcohol Use History: None Reported Additional Past Alcohol Use History / Comment(s): Pt started smoking as a teen. He is a down to 1 ppd but was a 2 ppd smoker. Past Drug Use History: None Reported - Past Family History Father Family Medical History: No Reported History Additional Family Medical History / Comment(s): Father in a MVA. Mother Family Medical History: Cancer Additional Family Medical History / Comment(s): Pt/spouse do not recall type of cancer. Brother(s) Family Medical History: Cancer Medications and Allergies Home Medications Medication Instructions Recorded Confirmed Type INSULIN ASPART (NovoLOG) [NovoLOG See Protocol SQ AC-TID 01/16/18 12/05/20 History (formulary)] Apixaban [Eliquis] 2.5 mg PO BID #60 tablet 01/11/19 12/05/20 Rx Atorvastatin Calcium [Lipitor] 80 mg PO HS 06/16/20 12/05/20 History Carvedilol [Coreg] 3.125 mg PO BID 06/16/20 12/05/20 History Ranolazine [Ranolazine ER] 1,000 mg PO BID 06/16/20 12/05/20 History Aspirin EC [Ecotrin Low Dose] 81 mg PO DAILY 08/14/20 12/05/20 History Sennosides [Senna] 8.6 mg PO BID 08/14/20 12/05/20 History Latanoprost/Pf [Latanoprost 0.005% 1 drop RIGHT EYE HS 08/25/20 12/05/20 History Eye Drop] Omeprazole 40 mg PO DAILY 08/25/20 12/05/20 History Tamsulosin HCl [Flomax] 0.4 mg PO DAILY 08/25/20 12/05/20 History Acetaminophen [Tylenol] 650 mg PO Q4H PRN 12/05/20 12/05/20 History Insulin Glargine,Hum.rec.anlog 25 unit SQ DAILY 12/05/20 12/05/20 History [Lantus Solostar Pen] Allergies Allergy/AdvReac Type Severity Reaction Status Date / Time codeine Allergy Unknown Verified 12/05/20 17:13 [From Tylenol-Codeine #3] Physical Exam Vitals: Vital Signs Temp Pulse Pulse Resp BP BP Pulse Ox 12/06/20 08:00 97.7 F 70 24 143/63 97 12/06/20 05:00 98.1 F 70 19 143/64 99 12/06/20 00:35 100 12/05/20 23:55 98 F 70 19 134/62 98 12/05/20 21:00 96.5 F L 71 32 H 127/58 94 L 12/05/20 20:55 90 L 12/05/20 18:00 70 20 134/66 97 12/05/20 17:41 65 20 133/64 97 12/05/20 16:41 68 20 131/81 97 12/05/20 15:45 20 12/05/20 15:37 98.5 F 71 18 149/58 97 Intake and Output 12/05/20 12/06/20 12/06/20 22:59 06:59 14:59 Intake Total 240 Balance 240 Intake: Oral 240 Other: Voiding Method Incontinent Incontinent Diaper Incontinent # Voids 3 1 Weight 74.843 kg 76 kg - Constitutional General appearance: no acute distress - Respiratory Respiratory: bilateral: diminished - Cardiovascular Heart sounds: normal: S1, S2 Abnormal Heart Sounds: systolic murmur Results 12/05/20 16:31 12/05/20 16:31 Cardiac Enzymes 12/05/20 12/05/20 12/05/20 Range/Units 16:31 16:31 21:19 AST 15 L (17-59) U/L Troponin I 0.037 H* 0.047 H* (0.000-0.034) ng/mL 12/05/20 Range/Units 23:47 AST (17-59) U/L Troponin I 0.055 H* (0.000-0.034) ng/mL Coagulation 12/05/20 Range/Units 16:31 PT 10.9 (9.0-12.0) sec APTT 25.4 (22.0-30.0) sec CBC 12/05/20 Range/Units 16:31 WBC 6.1 (3.8-10.6) k/uL RBC 3.27 L (4.30-5.90) m/uL Hgb 10.1 L (13.0-17.5) gm/dL Hct 31.3 L (39.0-53.0) % Plt Count 308 (150-450) k/uL Comprehensive Metabolic Panel 12/05/20 Range/Units 16:31 Sodium 138 (137-145) mmol/L Potassium 5.2 H (3.5-5.1) mmol/L Chloride 110 H (98-107) mmol/L Carbon Dioxide 19 L (22-30) mmol/L BUN 50 H (9-20) mg/dL Creatinine 2.42 H (0.66-1.25) mg/dL Glucose 158 H (74-99) mg/dL Calcium 9.0 (8.4-10.2) mg/dL AST 15 L (17-59) U/L ALT 9 (4-49) U/L Alkaline Phosphatase 86 (38-126) U/L Total Protein 6.5 (6.3-8.2) g/dL Albumin 3.4 L (3.5-5.0) g/dL Current Medications Generic Name Dose Route Start Last Admin Trade Name Freq PRN Reason Stop Dose Admin Acetaminophen 650 mg 12/05/20 18:59 Acetaminophen Tab 325 Mg Tab PO Q4H PRN Pain Albuterol Sulfate 2 puff 12/05/20 20:00 12/06/20 07:55 Albuterol Hfa Inhaler INHALATION 2 puff Q4HR [facility] Administration Apixaban 2.5 mg 12/05/20 21:00 12/06/20 09:23 Apixaban 2.5 Mg Tablet PO 2.5 mg BID [facility] Administration Protocol Ascorbic Acid 500 mg 12/06/20 10:00 Ascorbic Acid 500 Mg Tab PO DAILY [facility] Aspirin 325 mg 12/06/20 09:00 12/06/20 09:23 Aspirin 325 Mg Tab PO 325 mg DAILY [facility] Administration Atorvastatin Calcium 80 mg 12/05/20 21:00 12/05/20 21:26 Atorvastatin 80 Mg Tab PO 80 mg HS [facility] Administration Budesonide/Formoterol Fumarate 2 puff 12/06/20 20:00 Symbicort 160-4.5 Mcg Inhaler INHALATION RT-BID [facility] Carvedilol 3.125 mg 12/05/20 21:00 12/06/20 06:18 Carvedilol 3.125 Mg Tab PO 3.125 mg BID-W/MEALS [facility] Administration Cholecalciferol 10 mcg 12/06/20 10:00 Cholecalciferol 10 Mcg (400 Iu) Tablet PO DAILY [facility] Dexamethasone 6 mg 12/07/20 09:00 Dexamethasone 2 Mg Tab PO DAILY [facility] Furosemide 40 mg 12/05/20 19:15 12/06/20 06:18 Furosemide 10 Mg/Ml 4 Ml Vial IV 40 mg Q12H [facility] Administration Sodium Chloride 1,000 mls @ 100 mls/hr 12/05/20 19:15 12/06/20 09:24 Saline 0.9% IV Not Given .Q10H [facility] Insulin Detemir 25 unit 12/06/20 07:00 12/06/20 09:24 Insulin Detemir (Levemir) 100 Unit/Ml Syr SQ Not Given DAILY@0700 [facility] Latanoprost 1 drops 12/05/20 21:00 12/05/20 22:40 Latanoprost 0.005% Ophth Drops 2.5 Ml Btl RIGHT EYE 1 drops HS [facility] Administration Pantoprazole Sodium 40 mg 12/06/20 07:30 12/06/20 06:17 Pantoprazole 40 Mg Tablet PO 40 mg AC-[id number] [facility] Administration Ranolazine 1,000 mg 12/05/20 21:00 12/06/20 09:23 Ranolazine 500 Mg Tab.Er.12h PO 1,000 mg BID [facility] Administration Senna 8.6 mg 12/05/20 21:00 12/06/20 09:23 Sennosides 8.6 Mg Tab PO 8.6 mg BID [facility] Administration Tamsulosin HCl 0.4 mg 12/06/20 09:00 12/06/20 09:23 Tamsulosin 0.4 Mg Cap.Er.24h PO 0.4 mg DAILY [facility] Administration Zinc Sulfate 220 mg 12/06/20 10:00 Zinc Sulfate 220 Mg Cap PO DAILY [facility] Intake and Output 12/05/20 12/06/20 12/06/20 22:59 06:59 14:59 Intake Total 240 Balance 240 Intake: Oral 240 Other: Voiding Method Incontinent Incontinent Diaper Incontinent # Voids 3 1 Weight 74.843 kg 76 kg 12/05/20 16:31 12/05/20 16:31 Assessment and Plan Assessment: Assessment #1 pneumonia secondary to COVID 19 infection #2 evidence of myocardial injury, chronic, without any evidence of ischemia #3 chronic kidney disease #4 severe cardiomyopathy and status post AICD #5 multiple comorbid conditions Plan #1 consider conservative medical approach regarding the chief point abnormalities #2 continue aspirin as well as oral anticoagulation #3 continue anti-ischemic medication #4 follow-up with the patient
[2020-12-06 11:29] LABS: Glucose,Whole Blood 214 mg/dL (75-99)
--- NOTE | 2020-12-06 11:55 | P.CNPUL ---
History of Present Illness Consult date: 12/06/20 Requesting physician: Isaías Lord Reason for consult: dyspnea, cough, hypoxemia, pneumonia, abnormal CXR/CT Chief complaint: Shortness of breath, cough. History of present illness: Pulmonary consult dated 12/06/2020. 75-year-old male, seen in the emergency department, on December 05. He pre sented to the emergency department, having been [facility], for shortness of breath. The patient is not a particularly good historian. He's been sick for at least a couple weeks he tells me. The patient apparently tested positive for coronavirus. He states he apparently has been fully vaccinated. Again his history is a bit sketchy. The patient admits to being short of breath, and having cough. The cough is nonproductive. He denied any fever or chills. He 88 chest pain or chest discomfort. He apparently is also feeling weak. His past medical history includes atrial fibrillation, CHF, COPD, CVA, dementia, diabetes, gastroesophageal reflux disease, hyperlipidemia, hypertension, myocardial infarction, and sleep apnea syndrome. White count 6.1, hemoglobin 10.1, hematocrit 31.3, platelet count 308,000. PT INR PTT and d- dimer were all normal. Sodium 138, potassium 5.2, chlorides 110, CO2 19, anion gap 9, BUN 50, creatinine 2.42. The patient's troponin was 0.055. N-terminal proBNP was 9810. Testing for [place] virus was positive. Chest x-ray showed diffuse bilateral infiltrates, and my opinion, more consistent with CHF. Review of Systems REVIEW OF SYSTEMS: CONSTITUTIONAL: Fatigue. NEUROLOGIC: [ Negative.] HEENT: [ Negative.] CARDIAC: [Negative.] PULMONARY: Shortness of breath, and cough. GI: [Negative.] : [Negative.] RHEUMATOLOGIC: [ Negative.] IMMUNOLOGIC: [ Negative.] ENDOCRINE: [Negative. ] DERMATOLOGIC: [Negative.] Past Medical History Past Medical History: Atrial Fibrillation, Heart Failure, COPD, CVA/TIA, Dementia, Diabetes Mellitus, GERD/Reflux, Hyperlipidemia, Hypertension, Myocardial Infarction ([place]), Renal Disease, Sleep Apnea/CPAP/BIPAP, Vascular Disorder Additional Past Medical History / Comment(s): IDDM type II, 2007 CVA-more sleepy since, seizures ruled out by [facility] DION-did not tolerate mask, chronic kidney disease stage III, peripheral vascular disease, previous history of UTI with E. coli Last Myocardial Infarction Date:: 2006 History of Any Multi-Drug Resistant Organisms: None Reported Past Surgical History: Heart Catheterization, Pacemaker Additional Past Surgical History / Comment(s): 2006 Cardiac cath, L caratid endartectomy, pacemaker, R foot bunionectomy, R 5th finger amputation d/t press accident, colonoscopy, bilateral cataracts removed/lens implants, Past Anesthesia/Blood Transfusion Reactions: No Reported Reaction Type of Cardiac Device: Permanent Pacemaker Device Placement Date:: 2009 Past Psychological History: Anxiety, Depression Additional Psychological History / Comment(s): Patient is in ECF at [facility] in [place]. Smoking Status: Former smoker Past Alcohol Use History: None Reported Additional Past Alcohol Use History / Comment(s): Pt started smoking as a teen. He is a down to 1 ppd but was a 2 ppd smoker. Past Drug Use History: None Reported - Past Family History Father Family Medical History: No Reported History Additional Family Medical History / Comment(s): Father in a MVA. Mother Family Medical History: Cancer Additional Family Medical History / Comment(s): Pt/spouse do not recall type of cancer. Brother(s) Family Medical History: Cancer Medications and Allergies Home Medications Medication Instructions Recorded Confirmed Type INSULIN ASPART (NovoLOG) [NovoLOG See Protocol SQ AC-TID 01/16/18 12/05/20 Hi story (formulary)] Apixaban [Eliquis] 2.5 mg PO BID #60 tablet 01/11/19 12/05/20 Rx Atorvastatin Calcium [Lipitor] 80 mg PO HS 06/16/20 12/05/20 History Carvedilol [Coreg] 3.125 mg PO BID 06/16/20 12/05/20 History Ranolazine [Ranolazine ER] 1,000 mg PO BID 06/16/20 12/05/20 History Aspirin EC [Ecotrin Low Dose] 81 mg PO DAILY 08/14/20 12/05/20 History Sennosides [Senna] 8.6 mg PO BID 08/14/20 12/05/20 History Latanoprost/Pf [Latanoprost 0.005% 1 drop RIGHT EYE 08/25/20 12/05/20 History Eye Drop] Omeprazole 40 mg PO DAILY 08/25/20 12/05/20 History Tamsulosin HCl [Flomax] 0.4 mg PO DAILY 08/25/20 12/05/20 History Acetaminophen [Tylenol] 650 mg PO Q4H PRN 12/05/20 12/05/20 History Insulin Glargine,Hum.rec.anlog 25 unit SQ DAILY 12/05/20 12/05/20 History [Lantus Solostar Pen] Allergies Allergy/AdvReac Type Severity Reaction Status Date / Time codeine Allergy Unknown Verified 12/05/20 17:13 [From Tylenol-Codeine #3] Physical Exam Osteopathic Statement: *. No significant issues noted on an osteopathic structural exam other than those noted in the History and Physical/Consult. Vitals: Vital Signs Temp Pulse Pulse Resp BP BP Pulse Ox 12/06/20 08:00 97.7 F 70 24 143/63 97 12/06/20 05:00 98.1 F 70 19 143/64 99 12/06/20 00:35 100 12/05/20 23:55 98 F 70 19 134/62 98 12/05/20 21:00 96.5 F L 71 32 H 127/58 94 L 12/05/20 20:55 90 L 12/05/20 18:00 70 20 134/66 97 12/05/20 17:41 65 20 133/64 97 12/05/20 16:41 68 20 131/81 97 12/05/20 15:45 20 12/05/20 15:37 98.5 F 71 18 149/58 97 Intake and Output 12/05/20 12/06/20 12/06/20 22:59 06:59 14:59 Intake Total 240 Balance 240 Intake: Oral 240 Other: Voiding Method Incontinent Incontinent Diaper Incontinent # Voids 3 1 Weight 74.843 kg 76 kg 76 kg No acute distress, oriented 3. No conversational dyspnea or use of accessory muscles. 3 L saturation is 97%. HEENT examination is grossly unremarkable. Neck supple. Full range of motion. No adenopathy thyromegaly or neck vein distention. Cardiovascular examination reveals regular rhythm rate. S1-S2 normal. No S3 or S4. No discernible murmur noted. Heart rate 70 bpm. Lungs reveal scattered rhonchi and bibasilar crackles. Breath sounds equal bilaterally. No wheezes. Abdomen soft bowel sounds are heard. No masses or tenderness. Extremities are intact. No cyanosis clubbing or edema. Skin is without rash or lesion. Neurologic examination is brief but nonfocal. Results - Laboratory Findings CBC and BMP: 12/05/20 16:31 12/05/20 16:31 PT/INR, D-dimer PT 10.9 sec (9.0-12.0) 12/05/20 16:31 INR 1.0 (<1.2) 12/05/20 16:31 D-Dimer 0.54 mg/L FEU (<0.60) 12/05/20 16:31 Abnormal lab findings: Abnormal Labs 12/05/20 12/05/20 12/05/20 16:31 16:31 16:31 RBC 3.27 L Hgb 10.1 L Hct 31.3 L Lymphocytes # 0.9 L Potassium 5.2 H Chloride 110 H Carbon Dioxide 19 L BUN 50 H Creatinine 2.42 H Glucose 158 H POC Glucose (mg/dL) AST 15 L Creatine Kinase 52 L Troponin I 0.037 H* Albumin 3.4 L SARS-CoV-2 (PCR) 12/05/20 12/05/20 12/05/20 21:19 23:47 Unknown RBC Hgb Hct Lymphocytes # Potassium Chloride Carbon Dioxide BUN Creatinine Glucose POC Glucose (mg/dL) AST Creatine Kinase Troponin I 0.047 H* 0.055 H* Albumin SARS-CoV-2 (PCR) Detected A 12/06/20 12/06/20 12/06/20 06:19 06:32 06:47 RBC Hgb Hct Lymphocytes # Potassium Chloride Carbon Dioxide BUN Creatinine Glucose POC Glucose (mg/dL) 54 L 57 L 73 L AST Creatine Kinase Troponin I Albumin SARS-CoV-2 (PCR) 12/06/20 11:28 RBC Hgb Hct Lymphocytes # Potassium Chloride Carbon Dioxide BUN Creatinine Glucose POC Glucose (mg/dL) 214 H AST Creatine Kinase Troponin I Albumin SARS-CoV-2 (PCR) - Diagnostic Findings Chest x-ray: image reviewed Assessment and Plan Assessment: Shortness of breath, with hypoxemic, which might be multifactorial, in part related to coronavirus pneumonia and/or congestive heart failure. History of atrial fibrillation, status post pacemaker insertion. History of CHF. History of COPD from previous heavy tobacco use. History of CVA/TIA. History of dementia. History of diabetes mellitus. History of gastroesophageal reflux disease. History of hyperlipidemia. History of hypertension. Prior history of myocardial infarction. History of sleep apnea syndrome. History of stage III chronic kidney disease. Plan: Plan dated 12/06/2020. The patient is given an albuterol inhaler, to be used 2 puffs as needed. The patient is already on Eliquis 2.5 mg twice a day. In addition, we had vitamin C, vitamin D3, and zinc. We also had Symbicort 160/4.5, 2 puffs twice a day. In addition, the patient is Decadron 6 mg a day. In my opinion, he is not a candidate for REM. He is also not sick enough to receive an interleukin-6 antagonist. We will continue to follow make recommendations where appropriate. Periodic measurements of inflammatory markers would be appropriate and every second or third day chest x-rays would also be helpful. The patient is a DO NOT RESUSCITATE. Time with Patient: Greater than 30
[2020-12-06] MEDS: ZINC SULFATE 220 MG CAP PO SCH (13:00)
[2020-12-06] MEDS: CHOLECALCIFEROL 10 MCG (400 IU) TABLET PO SCH (13:00)
[2020-12-06] MEDS: ASCORBIC ACID 500 MG TAB PO SCH (13:00)
--- NOTE | 2020-12-06 13:01 | ECHOF ---
Referral Reason:SOB, CHF MEASUREMENTS -------- HEIGHT: 180.3 cm WEIGHT: 75.8 kg BP: IVSd: 0.8 cm (0.6 - 1.1) LVIDd: 6.0 cm (3.9 - 5.3) LVPWd: 1.0 cm (0.6 - 1.1) EDV(Teich): 177 ml IVSs: 1.7 cm LVIDs: 5.3 cm LVPWs: 1.1 cm %IVS Thck: 112 % ESV(Teich): 137 ml EF(Teich): 22 % %FS: 10 % SV(Teich): 40 ml RVIDd: 2.8 cm (< 3.3) MR Vmax: 5.34 m/s MR maxP.15 mmHg FINDINGS -------- This was a technically difficult study with suboptimal views. The left ventricle is mildly dilated. Left ventricular wall thickness is normal. Overall left stella tricular systolic function is moderate-severely impaired with, an EF between 30 - 35 %. Lumason used There is no pericardial effusion. CONCLUSIONS -------- 1. The left ventricle is mildly dilated. 2. Left ventricular wall thickness is normal. 3. Overall left ventricular systolic function is moderate-severely impaired with, an EF between 30 - 35 %. 4. There is no pericardial effusion. PHYSIOTHERAPIST'S ASSISTANT: Jackie Adkins AKIN
--- NOTE | 2020-12-06 15:25 | P.HPIM ---
History of Present Illness H&P Date: 12/06/20 Chief Complaint: Shortness of breath History of presenting complaint: This is a 75-year-old male with complex past medical history noted below significant for prior stroke and underlying dementia. Chronic stable medical conditions include atrial fibrillation, autonomic dysfunction from diabetes, pacemaker COPD, moderate cognitive impairment, diabetes, GERD, hyperlipidemia, hypertension, chronic kidney disease. Patient was sent in from the local [facility] to the ER for increasing shortness of breath, decreased oral intake. Failure to thrive. Patient also tested positive for COVID. Denied any fever. Tired rundown. Patient is 97% on room air in the ER. Review of systems: GEN.: Tired, decreased appetite EYES: None HEENT: None NECK: None RESPIRATORY: Slight cough, shortness of breath CARDIOVASCULAR: Edema present GASTROINTESTINAL: None GENITOURINARY: None MUSCULOSKELETAL: Joint pains LYMPHATICS: None HEMATOLOGICAL: None PSYCHIATRY: A bit forgetful NEUROLOGICAL: None Past medical history to include: Stroke, dementia, atrial fibrillation, COPD, moderate cognitive impairment, diabetes, GERD, hyperlipidemia, hypertension, chronic kidney disease, gait dysfunction uses a walker, pacemaker Social history: . ECF. Walker, and a Wheelchair. Patient been smoking for over 60 years. Down to a pack a day from 2 packs a day. Family history: Cancer On examination: VITAL SIGNS: 98.5, 71, 20, 149/58, 97% room air upon presentation GENERAL APPEARANCE: BMI 24.0, sitting at the edge of the bed, tired, awake HEENT: Normal external appearance of nose and ear. Oral cavity normal EYES: Pupils equal. Conjunctiva normal. NECK: JVD unable to assess Mass not palpable. RESPIRATORY: Respiratory effort increased Decreased breath sounds. Occasional crackles CARDIOVASCULAR: First and second sounds normal. Significant edema ABDOMEN: Soft. Liver and spleen not palpable. No tenderness. No mass palpable. PSYCHIATRY: Patient is able to answer simple questions. Mood and affect slightly low NEUROLOGICAL: Cranial nerves grossly intact. Moving all 4 limbs MUSCULAR skeletal: Evidence of OA. Dressing over the right verde LYMPHATICS: No lymph nodes palpable in neck and axilla INVESTIGATIONS, reviewed in the clinical context: White count 6.1 hemoglobin 10.1 platelets 308 sodium 138 potassium 5.2. 50 creatinine 2.42 Troponin I 0.037, 0.047, 0.055 ProBNP 9810 Influenza type a, b, RSV: Not detected SARS-CoV-2 : [PCR]: Detected EKG tracing personally reviewed by me-paced rhythm. Left bundle branch block pattern. Atrophic ablation. Crit 31 Chest x-ray film personally reviewed by me-cardiomegaly, significant pulmonary edema, pacemaker Previous testin-D echocardiogram [August 2020]: Multiple wall motion abnormality. EF 30-35% 08/30/2020: BUN 43 creatinine 2.07 Assessment and plan: -Acute on chronic congestive heart failure exacerbation from systolic dysfunction EF 30-35% Start Lasix drip at 10 mg an hour. Strict I's and O's. Follow electrolytes. -Acute kidney injury, likely ATN from cardiorenal syndrome Lasix drip. Follow renal function. Consult nephrology. - autonomic dysfunction from diabetes Rey wraps -COVID 19 positive. Pulse ox 97% on room air yesterday and this morning. He has been put on oxygen empirically when necessary. Has no fever. Was started on dexamethasone by pulmonary. We will discuss the need for the s virgil. Vitamin C, vitamin D, zinc supplemented. -Persistent atrial fibrillation Paced rhythm. On eliquis - COPD in a current smoker, Ventolin HFA. Symbicort 1604.52 puffs twice a day. -Chronic nicotine dependence patient cigarette smoker Nicotine patch -Moderate cognitive impairment from late onset Alzheimer's dementia -Diabetes mellitus type 2, Levemir 18 units subcu daily. 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 Lasix. Follow electrolytes -Obstructive sleep apnea, unable to wear a mask -Peripheral arterial disease On aspirin, Lipitor -Permanent pacemaker with generator change in August 02-2020 Pacemaker check done recently -Chronic gait dysfunction, and a baseline patient uses a walker -Acute on chronic medical debility from underlying medical problems -DO NOT RESUSCITATE Home medications to be continued. Start the patient on Lasix drip. Strict I's and O's. Bronchodilators. No nebulizers. Inhaled steroids. Rey wraps. Consultation to nephrology, cardiology, pulmonary. ID. We'll discuss with pulmonary, no indication for dexamethasone based on pulse ox. Prognosis guarded. Given the complexity and severity of patient's condition expect the patient to be in the hospital at least for 2 overnights Past Medical History Past Medical History: Atrial Fibrillation, Heart Failure, COPD, CVA/TIA, Dementia, Diabetes Mellitus, GERD/Reflux, Hyperlipidemia, Hypertension, M yocardial Infarction ([place]), Renal Disease, Sleep Apnea/CPAP/BIPAP, Vascular Disorder Additional Past Medical History / Comment(s): IDDM type II, 2006 CVA-more sleepy since, seizures ruled out by [facility], DION-did not tolerate mask, chronic kidney disease stage III, peripheral vascular disease, previous history of UTI with E. coli Last Myocardial Infarction Date:: 2006 History of Any Multi-Drug Resistant Organisms: None Reported Past Surgical History: Heart Catheterization, Pacemaker Additional Past Surgical History / Comment(s): 2006 Cardiac cath, L caratid endartectomy, pacemaker, R foot bunionectomy, R 5th finger amputation d/t press accident, colonoscopy, bilateral cataracts removed/lens implants, Past Anesthesia/Blood Transfusion Reactions: No Reported Reaction Type of Cardiac Device: Permanent Pacemaker Device Placement Date:: 2009 Past Psychological History: Anxiety, Depression Additional Psychological History / Comment(s): Patient is in ECF at [facility] in [place]. Smoking Status: Former smoker Past Alcohol Use History: None Reported Additional Past Alcohol Use History / Comment(s): Pt started smoking as a teen. He is a down to 1 ppd but was a 2 ppd smoker. Past Drug Use History: None Reported - Past Family History Father Family Medical History: No Reported History Additional Family Medical History / Comment(s): Father in a MVA. Mother Family Medical History: Cancer Additional Family Medical History / Comment(s): Pt/spouse do not recall type of cancer. Brother(s) Family Medical History: Cancer Medications and Allergies Home Medications Medication Instructions Recorded Confirmed Type INSULIN ASPART (NovoLOG) [NovoLOG See Protocol SQ AC-TID 01/16/18 12/05/20 History (formulary)] Apixaban [Eliquis] 2.5 mg PO BID #60 tablet 01/11/19 12/05/20 Rx Atorvastatin Calcium [Lipitor] 80 mg PO HS 06/16/20 12/05/20 History Carvedilol [Coreg] 3.125 mg PO BID 06/16/20 12/05/20 History Ranolazine [Ranolazine ER] 1,000 mg PO BID 06/16/20 12/05/20 History Aspirin EC [Ecotrin Low Dose] 81 mg PO DAILY 08/14/20 12/05/20 History Sennosides [Senna] 8.6 mg PO BID 08/14/20 12/05/20 History Latanoprost/Pf [Latanoprost 0.005% 1 drop RIGHT EYE HS 08/25/20 12/05/20 History Eye Drop] Omeprazole 40 mg PO DAILY 08/25/20 12/05/20 History Tamsulosin HCl [Flomax] 0.4 mg PO DAILY 08/25/20 12/05/20 History Acetaminophen [Tylenol] 650 mg PO Q4H PRN 12/05/20 12/05/20 History Insulin Glargine,Hum.rec.anlog 25 unit SQ DAILY 12/05/20 12/05/20 History [Lantus Solostar Pen] Allergies Allergy/AdvReac Type Severity Reaction Status Date / Time codeine Allergy Unknown Verified 12/05/20 17:13 [From Tylenol-Codeine #3] Physical Exam Vitals: Vital Signs Temp Pulse Pulse Resp BP BP Pulse Ox 12/06/20 08:00 97.7 F 70 24 143/63 97 12/06/20 05:00 98.1 F 70 19 143/64 99 12/06/20 00:35 100 12/05/20 23:55 98 F 70 19 134/62 98 12/05/20 21:00 96.5 F L 71 32 H 127/58 94 L 12/05/20 20:55 90 L 12/05/20 18:00 70 20 134/66 97 12/05/20 17:41 65 20 133/64 97 12/05/20 16:41 68 20 131/81 97 12/05/20 15:45 20 12/05/20 15:37 98.5 F 71 18 149/58 97 Intake and Output 12/05/20 12/06/20 12/06/20 22:59 06:59 14:59 Intake Total 240 Balance 240 Intake: Oral 240 Other: Voiding Method Incontinent Incontinent Diaper Incontinent # Voids 3 1 Weight 74.843 kg 76 kg Results CBC & Chem 7: 12/05/20 16:31 12/05/20 16:31 Labs: Abnormal Lab Results - Last 24 Hours (Table) 12/05/20 12/05/20 12/05/20 Range/Units 16:31 16:31 16:31 RBC 3.27 L (4.30-5.90) m/uL Hgb 10.1 L (13.0-17.5) gm/dL Hct 31.3 L (39.0-53.0) % Lymphocytes # 0.9 L (1.0-4.8) k/uL Potassium 5.2 H (3.5-5.1) mmol/L Chloride 110 H (98-107) mmol/L Carbon Dioxide 19 L (22-30) mmol/L BUN 50 H (9-20) mg/dL Creatinine 2.42 H (0.66-1.25) mg/dL Glucose 158 H (74-99) mg/dL POC Glucose (mg/dL) (75-99) mg/dL AST 15 L (17-59) U/L Creatine Kinase 52 L (55-170) U/L Troponin I 0.037 H* (0.000-0.034) ng/mL Albumin 3.4 L (3.5-5.0) g/dL SARS-CoV-2 (PCR) (Not Detectd) 12/05/20 12/05/20 12/05/20 Range/Units 21:19 23:47 Unknown RBC (4.30-5.90) m/uL Hgb (13.0-17.5) gm/dL Hct (39.0-53.0) % Lymphocytes # (1.0-4.8) k/uL Potassium (3.5-5.1) mmol/L Chloride (98-107) mmol/L Carbon Dioxide (22-30) mmol/L BUN (9-20) mg/dL Creatinine (0.66-1.25) mg/dL Glucose (74-99) mg/dL POC Glucose (mg/dL) (75-99) mg/dL AST (17-59) U/L Creatine Kinase (55-170) U/L Troponin I 0.047 H* 0.055 H* (0.000-0.034) ng/mL Albumin (3.5-5.0) g/dL SARS-CoV-2 (PCR) Detected A (Not Detectd) 12/06/20 12/06/20 12/06/20 Range/Units 06:19 06:32 06:47 RBC (4.30-5.90) m/uL Hgb (13.0-17.5) gm/dL Hct (39.0-53.0) % Lymphocytes # (1.0-4.8) k/uL Potassium (3.5-5.1) mmol/L Chloride (98-107) mmol/L Carbon Dioxide (22-30) mmol/L BUN (9-20) mg/dL Creatinine (0.66-1.25) mg/dL Glucose (74-99) mg/dL POC Glucose (mg/dL) 54 L 57 L 73 L (75-99) mg/dL AST (17-59) U/L Creatine Kinase (55-170) U/L Troponin I (0.000-0.034) ng/mL Albumin (3.5-5.0) g/dL SARS-CoV-2 (PCR) (Not Detectd) Thrombosis Risk Factor Assmnt - Choose All That Apply Any of the Below Risk Factors Present?: Yes Each Factor Represents 1 point: Abnormal pulmonary function (COPD) Other Risk Factors: Yes Each Risk Factor Represents 3 Points: Age 75 years or older Other congenital or acquired thrombophilia - If yes, enter type in comment: No Thrombosis Risk Factor Assessment Total Risk Factor Score: 4 Thrombosis Risk Factor Assessment Level: Moderate Risk
[2020-12-06 16:37] LABS: Glucose,Whole Blood 238 mg/dL (75-99)
[2020-12-06] MEDS: FUROSEMIDE 100 MG in SODIUM CHLORIDE 0.9% 90 ML IV SCH (16:45)
[2020-12-06] MEDS: INSULIN ASPART (NovoLOG) 100 UNIT/ML VIAL SQ SCH ×2 (16:46→20:35)
[2020-12-06] MEDS: SYMBICORT 160-4.5 MCG INHALER INHALATION SCH (19:30)
[2020-12-06 19:54] LABS: Glucose,Whole Blood 133 mg/dL (75-99)
[2020-12-06] MEDS: ATORVASTATIN 80 MG TAB PO SCH (20:35)
[2020-12-06] MEDS: LATANOPROST 0.005% OPHTH DROPS 2.5 ML BTL RIGHT EYE SCH (20:35)
[2020-12-06 20:45] LABS: Appearance,Urine Clear (Clear); Bilirubin,Urine Negative (Negative); Blood,Urine Negative (Negative); Color,Urine Yellow; Glucose,Urine (UA) Negative (Negative); Ketones,Urine Negative (Negative); Leukocyte Esterase,Urine Negative (Negative); Nitrite,Urine Negative (Negative); Protein,Urine 1+ (Negative); RBC,Urine 1 /hpf (0-5); Specific Gravity,Urine 1.008 (1.001-1.035); Squamous Epithelial Cell,Urine <1 /hpf (0-4); Urobilinogen,Urine <2.0 mg/dL (<2.0); WBC,Urine 1 /hpf (0-5)
--- NOTE | 2020-12-06 21:16 | P.CONS ---
History of Present Illness - Reason for Consult Consult date: 12/06/20 Covid 19 pneumonia Requesting physician: Isaías Lord - Chief Complaint shortness of breath and weakness x 1 day - History of Present Illness History of present illness : Patient is 75-year male with a past medical history significant for COPD CVA chronic renal insufficiency local correction resident who was brought to [facility] ER yesterday afterno on for evaluation of increasing shortness of breath failure to thrive decreased oral intake in this patient who did tested positive for Covid the day of presentation to the hospital that facility did not care for Covid positive patient and the patient was sent to the ER for further evaluation on pre sentation the hospital the patient was afebrile and no fever has been recorded subsequently patient did have hypoxemia requiring supplemental oxygen did have a normal white count with lymphopenia D-dimer was normal creatinine was elevated 2.42 AST was normal to low troponins were mildly elevated urine has been negative [place] PCR recheck in the positive patient did have a chest x-ray suspect CHF exacerbation on background of chronic changes patient has been able to hospital for further work-up ID was consulted for further management and need for antibiotic therapy patient himself is not a very good historian but not specifically reason he is a hospital mention he has been falling around patient Ms. Cain comfortably today he did have some shortness with yesterday patient did have mild cough which is mostly dry in nature denies any nausea no vomiting no abdominal pain or any diarrhea Review of system: CONSTITUTIONAL: Positive for weakness however denies fever. EYES: No complaint. ENT: No complaint. RESPIRATORY: As per history of present illness. CARDIOVASCULAR: No complaint. GENITOURINARY: No complaint. GASTROINTESTINAL: No complaint. MUSCULOSKELETAL: No complaint. INTEGUMENTARY: No complaint. PSYCHOLOGIC: No complaint. ENDOCRINE: No complaint. NEUROLOGIC: No complaint. Past medical history : Reviewed, documented below Past surgical history : Reviewed, documented below Social history: Reviewed, documented below Medications: Reviewed, as documented below GENERAL DESCRIPTION: Elderly male lying in bed, no distress. No tachypnea or accessory muscle of respiration use. HEENT: Shows Pallor , no scleral icterus. Oral mucous membrane is dry. NECK: Trachea central, no thyromegaly. LUNGS: Unlabored breathing. Decrease intensity of breath sounds. No wheeze or crackle. HEART: S1, S2, regular rate and rhythm. ABDOMEN: Soft, no tenderness , guarding or rigidity EXTREMITIES: No edema of feet. SKIN: No rash, no masses palpable. NEUROLOGICAL: The patient is awake, alert, oriented x2, mood and affect normal. LABS AND RADIOLOGY: Reviewed results see below Assessment : 1-patient presented to hospital with increasing shortness of breath weakness which is multifactorial possible cardiac etiology in this patient did have a elevated troponin chest x-ray is mostly suggestive of CHF pattern patient did not have any fever and no inflammatory markers has been checked Plan: 1-we will check inflammatory markers 2-treatment to be supportive at this point with Eliquis zinc ascorbic acid 3-hold on remdesivir 4-droplet isolation and respiratory support We will follow on clinical condition and cultures to further adjust medication if needed Thank you for this consultation we will follow the patient along with you Past Medical History Past Medical History: Atrial Fibrillation, Heart Failure, COPD, CVA/TIA, Dementia, Diabetes Mellitus, GERD/Reflux, Hyperlipidemia, Hypertension, Myocardial Infarction ([place]), Renal Disease, Sleep Apnea/CPAP/BIPAP, Vascular Disorder Additional Past Medical History / Comment(s): IDDM type II, 2006 CVA-more sleepy since, seizures ruled out by [facility], DION-did not tolerate mask, chronic kidney disease stage III, peripheral vascular disease, previous history of UTI with E. 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 Smoking Status: Former smoker Past Alcohol Use History: None Reported Additional Past Alcohol Use History / Comment(s): Pt started smoking as a teen. He is a down to 1 ppd but was a 2 ppd smoker. Past Drug Use History: None Reported - Past Family History Father Family Medical History: No Reported History Additional Family Medical History / Comment(s): Father in a MVA. Mother Family Medical History: Cancer Additional Family Medical History / Comment(s): Pt/spouse do not recall type of cancer. Brother(s) Family Medical History: Cancer Medications and Allergies Home Medications Medication Instructions Recorded Confirmed Type INSULIN ASPART (NovoLOG) [NovoLOG See Protocol SQ AC-TID 01/16/18 12/05/20 History (formulary)] Apixaban [Eliquis] 2.5 mg PO BID #60 tablet 01/11/19 12/05/20 Rx Atorvastatin Calcium [Lipitor] 80 mg PO HS 06/16/20 12/05/20 History Carvedilol [Coreg] 3.125 mg PO BID 06/16/20 12/05/20 History Ranolazine [Ranolazine ER] 1,000 mg PO BID 06/16/20 12/05/20 History Aspirin EC [Ecotrin Low Dose] 81 mg PO DAILY 08/14/20 12/05/20 History Sennosides [Senna] 8.6 mg PO BID 08/14/20 12/05/20 History Latanoprost/Pf [Latanoprost 0.005% 1 drop RIGHT EYE HS 08/25/20 12/05/20 History Eye Drop] Omeprazole 40 mg PO DAILY 08/25/20 12/05/20 History Tamsulosin HCl [Flomax] 0.4 mg PO DAILY 08/25/20 12/05/20 History Acetaminophen [Tylenol] 650 mg PO Q4H PRN 12/05/20 12/05/20 History Insulin Glargine,Hum.rec.anlog 25 unit SQ DAILY 12/05/20 12/05/20 History [Lantus Solostar Pen] Allergies Allergy/AdvReac Type Severity Reaction Status Date / Time codeine Allergy Unknown Verified 12/05/20 17:13 [From Tylenol-Codeine #3] Physical Exam Vitals: Vital Signs Temp Pulse Pulse Resp BP BP Pulse Ox 12/06/20 08:00 97.7 F 70 24 143/63 97 12/06/20 05:00 98.1 F 70 19 143/64 99 12/06/20 00:35 100 12/05/20 23:55 98 F 70 19 134/62 98 12/05/20 21:00 96.5 F L 71 32 H 127/58 94 L 12/05/20 20:55 90 L 12/05/20 18:00 70 20 134/66 97 12/05/20 17:41 65 20 133/64 97 12/05/20 16:41 68 20 131/81 97 12/05/20 15:45 20 12/05/20 15:37 98.5 F 71 18 149/58 97 Intake and Output 12/05/20 12/06/20 12/06/20 22:59 06:59 14:59 Intake Total 240 Balance 240 Intake: Oral 240 Other: Voiding Method Incontinent Incontinent Diaper Incontinent # Voids 3 1 Weight 74.843 kg 76 kg 76 kg Results CBC & Chem 7: 12/05/20 16:31 12/05/20 16:31 Labs: Abnormal Lab Results - Last 24 Hours (Table) 12/05/20 12/05/20 12/05/20 Range/Units 16:31 16:31 16:31 RBC 3.27 L (4.30-5.90) m/uL Hgb 10.1 L (13.0-17.5) gm/dL Hct 31.3 L (39.0-53.0) % Lymphocytes # 0.9 L (1.0-4.8) k/uL Potassium 5.2 H (3.5-5.1) mmol/L Chloride 110 H (98-107) mmol/L Carbon Dioxide 19 L (22-30) mmol/L BUN 50 H (9-20) mg/dL Creatinine 2.42 H (0.66-1.25) mg/dL Glucose 158 H (74-99) mg/dL POC Glucose (mg/dL) (75-99) mg/dL AST 15 L (17-59) U/L Creatine Kinase 52 L (55-170) U/L Troponin I 0.037 H* (0.000-0.034) ng/mL Albumin 3.4 L (3.5-5.0) g/dL SARS-CoV-2 (PCR) (Not Detectd) 12/05/20 12/05/20 12/05/20 Range/Units 21:19 23:47 Unknown RBC (4.30-5.90) m/uL Hgb (13.0-17.5) gm/dL Hct (39.0-53.0) % Lymphocytes # (1.0-4.8) k/uL Potassium (3.5-5.1) mmol/L Chloride (98-107) mmol/L Carbon Dioxide (22-30) mmol/L BUN (9-20) mg/dL Creatinine (0.66-1.25) mg/dL Glucose (74-99) mg/dL POC Glucose (mg/dL) (75-99) mg/dL AST (17-59) U/L Creatine Kinase (55-170) U/L Troponin I 0.047 H* 0.055 H* (0.000-0.034) ng/mL Albumin (3.5-5.0) g/dL SARS-CoV-2 (PCR) Detected A (Not Detectd) 12/06/20 12/06/20 12/06/20 Range/Units 06:19 06:32 06:47 RBC (4.30-5.90) m/uL Hgb (13.0-17.5) gm/dL Hct (39.0-53.0) % Lymphocytes # (1.0-4.8) k/uL Potassium (3.5-5.1) mmol/L Chloride (98-107) mmol/L Carbon Dioxide (22-30) mmol/L BUN (9-20) mg/dL Creatinine (0.66-1.25) mg/dL Glucose (74-99) mg/dL POC Glucose (mg/dL) 54 L 57 L 73 L (75-99) mg/dL AST (17-59) U/L Creatine Kinase (55-170) U/L Troponin I (0.000-0.034) ng/mL Albumin (3.5-5.0) g/dL SARS-CoV-2 (PCR) (Not Detectd) 12/06/20 Range/Units 11:28 RBC (4.30-5.90) m/uL Hgb (13.0-17.5) gm/dL Hct (39.0-53.0) % Lymphocytes # (1.0-4.8) k/uL Potassium (3.5-5.1) mmol/L Chloride (98-107) mmol/L Carbon Dioxide (22-30) mmol/L BUN (9-20) mg/dL Creatinine (0.66-1.25) mg/dL Glucose (74-99) mg/dL POC Glucose (mg/dL) 214 H (75-99) mg/dL AST (17-59) U/L Creatine Kinase (55-170) U/L Troponin I (0.000-0.034) ng/mL Albumin (3.5-5.0) g/dL SARS-CoV-2 (PCR) (Not Detectd)
[2020-12-06 23:32] LABS: Glucose,Whole Blood 190 mg/dL (75-99)
[2020-12-07] MEDS: FUROSEMIDE 100 MG in SODIUM CHLORIDE 0.9% 90 ML IV SCH ×3 (02:45→19:25)
[2020-12-07] MEDS: ALBUTEROL HFA INHALER INHALATION SCH ×5 (03:50→19:43)
[2020-12-07 06:21] LABS: Glucose,Whole Blood 165 mg/dL (75-99)
[2020-12-07] MEDS: INSULIN DETEMIR (LEVEMIR) 100 UNIT/ML SYR SQ SCH (06:45)
[2020-12-07] MEDS: carvediloL 3.125 MG TAB PO SCH ×2 (06:45→18:46)
[2020-12-07] MEDS: PANTOPRAZOLE 40 MG TABLET PO SCH (06:45)
[2020-12-07] MEDS: INSULIN ASPART (NovoLOG) 100 UNIT/ML VIAL SQ SCH ×4 (06:45→22:28)
--- NOTE | 2020-12-07 07:34 | XR ---
EXAMINATION TYPE: XR chest 1V portable DATE OF EXAM: 12/07/2020 COMPARISON: 12/05/2020 HISTORY: 75 years Male. STUDY INDICATION GIVEN: COVID . TECHNIQUE: Portable chest radiograph FINDINGS AND IMPRESSION: Patchy and interstitial opacities again seen without significant change which could represent multifo azam pneumonia with mild interstitial edema. Mild bibasilar subsegmental atelectasis. No large pleural effusion or pneumothorax. Stable mild cardiomegaly with AICD device cardiac leads. Stable appearance of the osseous structures.
[2020-12-07] MEDS: SYMBICORT 160-4.5 MCG INHALER INHALATION SCH ×2 (08:45→19:43)
[2020-12-07] MEDS ORDERED: dexAMETHasone 2 MG TAB PO SCH (09:00)
[2020-12-07] MEDS: APIXABAN 2.5 MG TABLET PO SCH ×2 (09:22→20:26)
[2020-12-07] MEDS: RANOLAZINE 500 MG TAB.ER.12H PO SCH ×2 (09:22→20:26)
[2020-12-07] MEDS: SENNOSIDES 8.6 MG TAB PO SCH ×2 (09:22→20:26)
[2020-12-07] MEDS: CHOLECALCIFEROL 10 MCG (400 IU) TABLET PO SCH (09:22)
[2020-12-07] MEDS: ASPIRIN 81 MG PO SCH (09:22)
[2020-12-07] MEDS: ZINC SULFATE 220 MG CAP PO SCH (09:22)
[2020-12-07] MEDS: TAMSULOSIN 0.4 MG CAP.ER.24H PO SCH (09:22)
[2020-12-07] MEDS: ASCORBIC ACID 500 MG TAB PO SCH (09:23)
[2020-12-07 10:19] LABS: C Reactive Protein 5.7 mg/dL (<1.0)
--- NOTE | 2020-12-07 10:40 | P.PN ---
Subjective Progress Note Date: 12/07/20 Principal diagnosis: Abnormal cardiac enzymes The patient was seen this morning. She continues to be on oxygen regarding the pneumonia. No symptoms of chest pain or chest discomfort. We consider a conservative medical approach regarding the mildly abnormal troponin in the abse nce of any symptoms of chest pain or chest discomfort. The echo revealed impaired LV function was EF around 35% which has been the same as before. Objective - Vital Signs Vital signs: Vital Signs Temp 98.2 F 12/07/20 08:00 Pulse 70 12/07/20 08:00 Resp 20 12/07/20 08:00 BP 108/52 12/07/20 08:00 Pulse Ox 99 12/07/20 08:00 Intake & Output 12/06/20 12/07/20 12/07/20 18:59 06:59 18:59 Intake Total 997 460 186.667 Output Total 350 Balance 647 460 186.667 Weight 76 kg 75.5 kg Intake: Intake, IV Titration 100 66.667 Amount Furosemide 100 mg In 100 66.667 Sodium Chloride 0.9% 90 ml @ 10 MG/HR 10 mls/hr IV .Q10H [facility] Rx#: [id number] Oral 997 360 120 Output: Urine 350 Other: Voiding Method Diaper Diaper Diaper Incontinent Incontinent Incontinent # Voids 1 - Constitutional General appearance: Present: no acute distress - Labs CBC & Chem 7: 12/05/20 16:31 12/05/20 16:31 Labs: Abnormal Lab Results - Last 24 Hours (Table) 12/06/20 12/06/20 12/06/20 Range/Units 11:28 16:36 19:52 POC Glucose (mg/dL) 214 H 238 H 133 H (75-99) mg/dL C-Reactive Protein (<1.0) mg/dL Urine Protein (Negative) 12/06/20 12/06/20 12/07/20 Range/Units 20:33 23:30 06:19 POC Glucose (mg/dL) 190 H 165 H (75-99) mg/dL C-Reactive Protein (<1.0) mg/dL Urine Protein 1+ H (Negative) 12/07/20 Range/Units 09:04 POC Glucose (mg/dL) (75-99) mg/dL C-Reactive Protein 5.7 H (<1.0) mg/dL Urine Protein (Negative) Microbiology - Last 24 Hours (Table) 12/05/20 16:31 Blood Culture - Preliminary Blood No Growth after 24 hours 12/05/20 16:31 Blood Culture - Preliminary Blood No Growth after 24 hours Assessment and Plan Assessment: Assessment #1 pneumonia secondary to COVID 19 infection #2 evidence of myocardial injury, chronic, without any evidence of ischemia #3 chronic kidney disease #4 severe cardiomyopathy and status post AICD #5 multiple comorbid conditions Plan #1 consider conservative medical approach regarding the chief point abnorm alities #2 continue aspirin as well as oral anticoagulation #3 continue anti-ischemic medication #4 follow-up with the patient
--- NOTE | 2020-12-07 10:50 | P.NPCON ---
History of Present Illness - Reason for Consult Consult date: 12/07/20 acute renal failure - Chief Complaint Shortness of breath and Covid - History of Present Illness This is a 75-year-old male known to us with chronic kidney disease was admitted with Covid. A chest x-ray showed findings suggestive congestive heart failure and or bilateral infiltrate. Chest x-rays seems to have minimally improved as of this morning compared to 2 days ago. Is known with diabetes mellitus, history of CVA COPD dementia and a [facility] resident. He is coughing. Unable to give a very good history. Supposedly he was also short of breath and was not eating and therefore was tested for Covid and was positive. We have seen him in the past in the hospital. His creatinine baseline is difficult to determine as it ranges from 51.97. The most recent best creatinine was 1.97 on 08/29/2020. GFR is 32 mL per minute. 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 creatinine of 2.42. 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 Past Medical History Past Medical History: Atrial Fibrillation, Heart Failure, COPD, CVA/TIA, Dementia, Diabetes Mellitus, GERD/Reflux, Hyperlipidemia, Hypertension, Myocardial Infarction ([place]), Renal Disease, Sleep Apnea/CPAP/BIPAP, Vascular Disorder Additional Past Medical History / Comment(s): IDDM type II, 2006 CVA-more sleepy since, seizures ruled out by [facility], DION-did not tolerate mask, chronic kidney disease stage III, peripheral vascular disease, previous history of UTI with E. 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 in [place]. Smoking Status: Former smoker Past Alcohol Use History: None Reported Additional Past Alcohol Use History / Comment(s): Pt started smoking as a teen. He is a down to 1 ppd but was a 2 ppd smoker. Past Drug Use History: None Reported - Past Family History Father Family Medical History: No Reported History Additional Family Medical History / Comment(s): Father in a MVA. Mother Family Medical History: Cancer Additional Family Medical History / Comment(s): Pt/spouse do not recall type of cancer. Brother(s) Family Medical History: Cancer Medications and Allergies Home Medications Medication Instructions Recorded Confirmed Type INSULIN ASPART (NovoLOG) [NovoLOG See Protocol SQ AC-TID 01/16/18 12/05/20 History (formulary)] Apixaban [Eliquis] 2.5 mg PO BID #60 tablet 01/11/19 12/05/20 Rx Atorvastatin Calcium [Lipitor] 80 mg PO HS 06/16/20 12/05/20 History Carvedilol [Coreg] 3.125 mg PO BID 06/16/20 12/05/20 History Ranolazine [Ranolazine ER] 1,000 mg PO BID 06/16/20 12/05/20 History Aspirin EC [Ecotrin Low Dose] 81 mg PO DAILY 08/14/20 12/05/20 History Sennosides [Senna] 8.6 mg PO BID 08/14/20 12/05/20 History Latanoprost/Pf [Latanoprost 0.005% 1 drop RIGHT EYE HS 08/25/20 12/05/20 History Eye Drop] Omeprazole 40 mg PO DAILY 08/25/20 12/05/20 History Tamsulosin HCl [Flomax] 0.4 mg PO DAILY 08/25/20 12/05/20 History Acetaminophen [Tylenol] 650 mg PO Q4H PRN 12/05/20 12/05/20 History Insulin Glargine,Hum.rec.anlog 25 unit SQ DAILY 12/05/20 12/05/20 History [Lantus Solostar Pen] Allergies Allergy/AdvReac Type Severity Reaction Status Date / Time codeine Allergy Unknown Verified 12/05/20 17:13 [From Tylenol-Codeine #3] Physical Exam Vitals: Vital Signs Temp Pulse Resp BP Pulse Ox 12/07/20 08:00 98.2 F 70 20 108/52 99 12/07/20 03:20 97.9 F 70 20 135/61 98 12/06/20 23:30 98.6 F 70 19 126/60 98 12/06/20 20:40 98.1 F 70 19 117/56 92 L 12/06/20 16:00 97.8 F 70 20 135/93 95 12/06/20 14:00 70 22 12/06/20 12:00 99.0 F 70 22 102/51 98 Intake and Output 12/06/20 12/07/20 12/07/20 22:59 06:59 14:59 Intake Total 597 100 186.667 Output Total 350 Balance 247 100 186.667 Intake: Intake, IV Titration 100 66.667 Amount Furosemide 100 mg In 100 66.667 Sodium Chloride 0.9% 90 ml @ 10 MG/HR 10 mls/hr IV .Q10H [facility] Rx#: [id number] Oral 597 120 Output: Urine 350 Other: Voiding Method Diaper Diaper Diaper Incontinent Incontinent Incontinent Weight 75.5 kg On examination is awake alert oriented to place only. HEENT exam no JVP neck is supple no facial asymmetry Lungs are significant for end expiratory wheezing and occasional coarse crackles good air entry bilaterally Heart sounds unremarkable for any murmur rub gallop. He is in atrial fibrillation Abdomen soft nontender Extremity exam reveals no edema Neurologically awake alert but oriented only trace. No focal motor deficit Results - Lab Results Most recent lab results Calcium 9.0 mg/dL (8.4-10.2) 12/05/20 16:31 Magnesium 1.7 mg/dL (1.6-2.3) 12/05/20 16:31 12/05/20 16:31 12/05/20 16:31 Assessment and Plan Assessment: Impression 1. 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 Serum immunofixation shows IgG monoclonal gammopathy in 2016 but no recent follow-up.. Creatinine at its best is 1.97 recently on 08/29/2020 2. Admitted with coated pneumonia 3. Possible congestive heart failure. 4. Anemia of chronic illness hemoglobin is 10.1. 5. Mild degree of non-gap acidosis with bicarb 19 and gap 9. 6. Mild dementia 7. skilled nursing resident Recommendation 1. Check urine protein to creatinine ratio and urine and serum immunoelectroph oresis 2. Maintain IV Lasix drip with careful monitoring of labs blood pressures urine output 3. Start him on sodium bicarb 650 4 times a day. 5. Check iron saturation. Thank you for this consultation and we'll continue to follow
[2020-12-07 11:56] LABS: Glucose,Whole Blood 362 mg/dL (75-99)
[2020-12-07] MEDS: SODIUM BICARBONATE TAB 650 MG TAB PO SCH ×3 (12:09→20:26)
--- NOTE | 2020-12-07 13:32 | P.PN ---
Subjective Progress Note Date: 12/07/20 Principal diagnosis: Shortness of breath. Pulmonary consult dated 12/06/2020. 75-year-old male, seen in the emergency department, on December 05. He presented to the emergency department, having been brought in by EMS from a senior living, for shortness of breath. The patient is not a particularly good historian. He's been sick for at least a couple weeks he tells me. The patient apparently tested positive for coronavirus. He states he apparently has been fully vaccinated. Again his history is a bit sketchy. The patient admits to being short of breath, and having cough. The cough is nonproductive. He denied any fever or chills. He 90 chest pain or chest discomfort. He apparently is also feeling weak. His past medical history includes atrial fibrillation, CHF, COPD, CVA, dementia, diabetes, gastroesophageal reflux disease, hyperlipidemia, hypertension, myocardial infarction, and sleep apnea syndrome. White count 6.1, hemoglobin 10.1, hematocrit 31.3, platelet count 308,000. PT INR PTT and d- dimer were all normal. Sodium 138, potassium 5.2, chlorides 110, CO2 19, anion gap 9, BUN 50, creatinine 2.42. The patient's troponin was 0.055. N-terminal p roBNP was 9810. Testing for newton virus was positive. Chest x-ray showed diffuse bilateral infiltrates, and my opinion, more consistent with CHF. Progress note dated 12/07/2020. 75-year-old male seen in the emergency department on December 05. We saw him in consultation on December 06. He was brought in by EMS from senior living, because of shortness of breath. The patient was not a particularly good historian. In the past, he is seen the other pulmonary group. He has a history of atrial fibrillation, CHF, COPD, CVA, dementia, diabetes mellitus, gastroesophageal reflux disease, hyperlipidemia, hypertension, myocardial infarction, sleep apnea syndrome. His hospital doctor is treating him primarily for fluid overload. He did test positive for coronavirus, and was thought to have a component of coronavirus pneumonia. There are no new laboratory data today except for a glucose of 362, a LDH of 426, C-reactive protein of 5.7, and an N-terminal proBNP of 12,100. Chest x-ray from today shows patchy interstitial opacities, which could be consistent with interstitial edema or pne umonia. There is cardiomegaly, as well as an AICD in place. Objective - Vital Signs Vital signs: Vital Signs Temp 98.2 F 12/07/20 08:00 Pulse 70 12/07/20 12:00 Resp 19 12/07/20 12:00 BP 135/68 12/07/20 12:00 Pulse Ox 100 12/07/20 12:00 Intake & Output 12/06/20 12/07/20 12/07/20 18:59 06:59 18:59 Intake Total 997 460 186.667 Output Total 350 Balance 647 460 186.667 Weight 76 kg 75.5 kg Intake: Intake, IV Titration 100 66.667 Amount Furosemide 100 mg In 100 66.667 Sodium Chloride 0.9% 90 ml @ 10 MG/HR 10 mls/hr IV .Q10H [facility] Rx#: [id number] Oral 997 360 120 Output: Urine 350 Other: Voiding Method Diaper Diaper Diaper Incontinent Incontinent Incontinent # Voids 1 - Exam No acute distress, oriented 3. No conversational dyspnea or use of accessory muscles. 3 L saturation is 100%. HEENT examination is grossly unremarkable. Neck supple. Full range of motion. No adenopathy thyromegaly or neck vein distention. Cardiovascular examination reveals regular rhythm rate. S1-S2 normal. No S3 or S4. No discernible murmur noted. Heart rate 70 bpm. Lungs reveal scattered rhonchi and bibasilar crackles. Breath sounds equal bilaterally. No wheezes. Abdomen soft bowel sounds are heard. No masses or tenderness. Extremities are intact. No cyanosis clubbing or edema. Skin is without rash or lesion. Neurologic examination is brief but nonfocal. - Labs CBC & Chem 7: 12/05/20 16:31 12/05/20 16:31 Labs: Abnormal Lab Results - Last 24 Hours (Table) 12/06/20 12/06/20 12/06/20 Range/Units 16:36 19:52 20:33 POC Glucose (mg/dL) 238 H 133 H (75-99) mg/dL C-Reactive Protein (<1.0) mg/dL Urine Protein 1+ H (Negative) 12/06/20 12/07/20 12/07/20 Range/Units 23:30 06:19 09:04 POC Glucose (mg/dL) 190 H 165 H (75-99) mg/dL C-Reactive Protein 5.7 H (<1.0) mg/dL Urine Protein (Negative) 12/07/20 Range/Units 11:53 POC Glucose (mg/dL) 362 H (75-99) mg/dL C-Reactive Protein (<1.0) mg/dL Urine Protein (Negative) Microbiology - Last 24 Hours (Table) 12/05/20 16:31 Blood Culture - Preliminary Blood No Growth after 24 hours 12/05/20 16:31 Blood Culture - Preliminary Blood No Growth after 24 hours Assessment and Plan Assessment: Shortness of breath, with hypoxemic, which might be multifactorial, in part related to COVID 19 pneumonia and/or congestive heart failure. History of atrial fibrillation, status post pacemaker insertion. History of CHF. History of COPD from previous heavy tobacco use. History of CVA/TIA. History of dementia. History of diabetes mellitus. History of gastroesophageal reflux disease. History of hyperlipidemia. History of hypertension. Prior history of myocardial infarction. History of sleep apnea syndrome. History of stage III chronic kidney disease. Plan: Plan dated 12/06/2020. The patient is given an albuterol inhaler, to be used 2 puffs as needed. The patient is already on Eliquis 2.5 mg twice a day. In addition, we had vitamin C, vitamin D3, and zinc. We also had Symbicort 160/4.5, 2 puffs twice a day. In addition, the patient is Decadron 6 mg a day. In my opinion, he is not a candidate for REM. He is also not sick enough to receive an interleukin-6 antagonist. We will continue to follow make recommendations where appropriate. Periodic measurements of inflammatory markers would be appropriate and every second or third day chest x-rays would also be helpful. The patient is a DO NOT RESUSCITATE. Plan dated 12/07/2020. Currently, the patient appears to be doing relatively well. He is much less short of breath. His saturations are 100% on 3 L. The patient's getting appropriate medications. Please see the note above. The patient is not a candidate for REM. He is not sick enough to receive an interleukin-6 antagonist. Additional recommendations and suggestions are forthcoming. He remains on a Lasix drip as per the Hospital service. We will continue to follow make recommendations where appropriate. Prognosis is guarded. The patient is a DO NOT RESUSCITATE. Time with Patient: Less than 30
[2020-12-07 16:45] LABS: Glucose,Whole Blood 44 mg/dL (75-99)
[2020-12-07 16:45] LABS: Glucose,Whole Blood 41 mg/dL (75-99)
[2020-12-07 17:10] LABS: Glucose,Whole Blood 88 mg/dL (75-99)
--- NOTE | 2020-12-07 20:16 | PN ---
PROGRESS NOTE DATE OF SERVICE: 12/07/2020 REASON FOR FOLLOWUP: Positive Covid test/pneumonia. INTERVAL HISTORY: The patient is afebrile. The patient is currently breathing comfortably. He is on room air sating 95%. Denies any chest pain. Did have a congested cough. No vomiting. No abdominal pain or diarrhea. PHYSICAL EXAMINATION: Blood pressure 152/58 with a pulse of 70, temperature 98.2. He is 95% on room air. General description is an elderly male lying in bed in no distress. Respiratory system: Unlabored breathing, decreased breath sounds in the base, with no wheeze. Heart S1, S2. Regular rate and rhythm. Abdomen soft, no tenderness. Right leg with wound but no swelling. No redness. No drainage. LABS: Creatinine 5.7, D-dimer 0.40. DIAGNOSTIC IMPRESSION/PLAN: Patient with admission to hospital with weakness and fall in this patient who did have a positive Covid test. However the patient is currently not symptomatic as far as Covid 19 infection is concerned and will be treated more symptomatically and supportively. Patient is on dexamethasone, zinc, vitamin C, Eliquis to continue and monitor clinical course closely. Continue supportive care. MMODL / IJN: [id number] /
[2020-12-07] MEDS: ATORVASTATIN 80 MG TAB PO SCH (20:26)
[2020-12-07] MEDS: LATANOPROST 0.005% OPHTH DROPS 2.5 ML BTL RIGHT EYE SCH (20:56)
[2020-12-07 21:07] LABS: Glucose,Whole Blood 171 mg/dL (75-99)
--- NOTE | 2020-12-07 23:05 | P.PN ---
Subjective Progress Note Date: 12/07/20 This is a 75-year-old male with complex past medical history noted below significant for prior stroke and underlying dementia. Chronic stable medical conditions include atrial fibrillation, autonomic dysfunction from diabetes, pacemaker COPD, moderate cognitive impairment, diabetes, GERD, hyperlipidemia, hypertension, chronic kidney disease. Patient was sent in from the local ECF to the ER for increasing shortness of breath, decreased oral intake. Failure to thrive. Patient also tested positive for COVID. Denied any fever. Tired rundown. Patient is 97% on room air in the ER. 12/07/2020 Patient was admitted to the hospital due to fluid overload and Covid pneumonia. Patient is currently lying in the bed. Awake alert. Somewhat poor historian. Denied any complaints of chest pain. No complaints of worsening shortness of breath. Still having bilateral lower extremity leg swelling and both are Rey wrapped. Patient is being continued on Lasix drip due to fluid overload. Does have history of chronic kidney disease with monoclonal gammopathy. Laboratory data showed LDH 426, CRP 5.7 and procalcitonin level is 0.13. Patient is also on anticoagulation with Eliquis. Active Medications Generic Name Dose Route Start Last Admin Trade Name Freq PRN Reason Stop Dose Admin Acetaminophen 650 mg 12/05/20 18:59 Acetaminophen Tab 325 Mg Tab PO Q4H PRN Pain Albuterol Sulfate 2 puff 12/05/20 20:00 12/07/20 19:43 Albuterol Hfa Inhaler INHALATION 2 puff Q4HR [facility] Administration Apixaban 2.5 mg 12/05/20 21:00 12/07/20 20:26 Apixaban 2.5 Mg Tablet PO 2.5 mg BID [facility] Administration Protocol Ascorbic Acid 500 mg 12/06/20 10:00 12/07/20 09:23 Ascorbic Acid 500 Mg Tab PO 500 mg DAILY [facility] Administration Aspirin 81 mg 12/07/20 09:00 12/07/20 09:22 Aspirin 81 Mg PO 81 mg DAILY [facility] Administration Atorvastatin Calcium 80 mg 12/05/20 21:00 12/07/20 20:26 Atorvastatin 80 Mg Tab PO 80 mg HS [facility] Administration Budesonide/Formoterol Fumarate 2 puff 12/06/20 20:00 12/07/20 19:43 Symbicort 160-4.5 Mcg Inhaler INHALATION 2 puff RT-BID [facility] Administration Carvedilol 3.125 mg 12/05/20 21:00 12/07/20 18:46 Carvedilol 3.125 Mg Tab PO 3.125 mg BID-W/MEALS [facility] Administration Cholecalciferol 10 mcg 12/06/20 10:00 12/07/20 09:22 Cholecalciferol 10 Mcg (400 Iu) Tablet PO 10 mcg DAILY [facility] Administration Furosemide 100 mg/ Sodium 100 mls @ 10 mls/hr 12/06/20 15:15 12/07/20 19:25 Chloride IV 10 mg/hr .Q10H [facility] 10 mls/hr Administration 10 MG/HR Insulin Aspart 0 unit 12/06/20 17:30 12/07/20 22:28 Insulin Aspart (Novolog) 100 Unit/Ml Vial SQ Not Given ACHS [facility] Protocol Insulin Detemir 18 unit 12/07/20 07:00 12/07/20 06:45 Insulin Detemir (Levemir) 100 Unit/Ml Syr SQ 18 unit DAILY@0700 [facility] Administration Latanoprost 1 drops 12/05/20 21:00 12/07/20 20:56 Latanoprost 0.005% Ophth Drops 2.5 Ml Btl RIGHT EYE 1 drops HS [facility] Administration Pantoprazole Sodium 40 mg 12/06/20 07:30 12/07/20 06:45 Pantoprazole 40 Mg Tablet PO 40 mg [id number] [facility] Administration Ranolazine 1,000 mg 12/05/20 21:00 12/07/20 20:26 Ranolazine 500 Mg Tab.Er.12h PO 1,000 mg BID [facility] Administration Senna 8.6 mg 12/05/20 21:00 12/07/20 20:26 Sennosides 8.6 Mg Tab PO 8.6 mg BID [facility] Administration Sodium Bicarbonate 650 mg 12/07/20 13:00 12/07/20 20:26 Sodium Bicarbonate Tab 650 Mg Tab PO 650 mg QID [facility] Administration Tamsulosin HCl 0.4 mg 12/06/20 09:00 12/07/20 09:22 Tamsulosin 0.4 Mg Cap.Er.24h PO 0.4 mg DAILY [facility] Administration Zinc Sulfate 220 mg 12/06/20 10:00 12/07/20 09:22 Zinc Sulfate 220 Mg Cap PO 220 mg DAILY [facility] Administration Objective - Vital Signs Vital signs: Vital Signs Temp 98.2 F 12/07/20 08:00 Pulse 70 12/07/20 15:46 Resp 18 12/07/20 15:46 BP 122/58 12/07/20 15:46 Pulse Ox 95 12/07/20 15:46 Intake & Output 12/07/20 12/07/20 12/08/20 06:59 18:59 06:59 Intake Total 460 726.667 100 Balance 460 726.667 100 Weight 75.5 kg Intake: Intake, IV Titration 100 66.667 100 Amount Furosemide 100 mg In 100 66.667 100 Sodium Chloride 0.9% 90 ml @ 10 MG/HR 10 mls/hr IV .Q10H [facility] Rx#: [id number] Oral 360 660 Other: Voiding Method Diaper Diaper Diaper Incontinent Incontinent Incontinent # Voids 4 - Exam GENERAL APPEARANCE: BMI 24.0, sitting at the edge of the bed, tired, awake HEENT: Normal external appearance of nose and ear. Oral cavity normal EYES: Pupils equal. Conjunctiva normal. NECK: JVD unable to assess Mass not palpable. RESPIRATORY: Respiratory effort increased Decreased breath sounds. Occasional crackles CARDIOVASCULAR: First and second sounds normal. Significant edema ABDOMEN: Soft. Liver and spleen not palpable. No tenderness. No mass palpable. PSYCHIATRY: Patient is able to answer simple questions. Mood and affect slightly low NEUROLOGICAL: Cranial nerves grossly intact. Moving all 4 limbs MUSCULAR skeletal: Evidence of OA. Dressing over the right verde LYMPHATICS: No lymph nodes palpable in neck and axilla - Labs CBC & Chem 7: 12/05/20 16:31 12/05/20 16:31 Labs: Abnormal Lab Results - Last 24 Hours (Table) 12/06/20 12/07/20 12/07/20 Range/Units 23:30 06:19 09:04 POC Glucose (mg/dL) 190 H 165 H (75-99) mg/dL C-Reactive Protein (<1.0) mg/dL Procalcitonin 0.13 H (0.02-0.09) ng/mL 12/07/20 12/07/20 12/07/20 Range/Units 09:04 11:53 16:43 POC Glucose (mg/dL) 362 H 44 L (75-99) mg/dL C-Reactive Protein 5.7 H (<1.0) mg/dL Procalcitonin (0.02-0.09) ng/mL 12/07/20 12/07/20 Range/Units 16:44 21:06 POC Glucose (mg/dL) 41 L 171 H (75-99) mg/dL C-Reactive Protein (<1.0) mg/dL Procalcitonin (0.02-0.09) ng/mL Microbiology - Last 24 Hours (Table) 12/05/20 16:31 Blood Culture - Preliminary Blood No Growth after 48 hours 12/05/20 16:31 Blood Culture - Preliminary Blood No Growth after 48 hours Assessment and Plan Assessment: -Acute on chronic congestive heart failure exacerbation from systolic dysfunction EF 30-35% on Lasix drip at 10 mg an hour. Strict I's and O's. Follow electrolytes. 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 base line cr 1.3 Lasix drip. Follow renal function. Consult nephrology. - autonomic dysfunction from diabetes Rey wraps -COVID 19 positive. Pulse ox 97% on room air. He has been put on oxygen empir ically when necessary. Has no fever. Was started on dexamethasone by pulmonary. Vitamin C, vitamin D, zinc supplemented. -Persistent atrial fibrillation. Paced rhythm. On eliquis - COPD in a current smoker, Ventolin HFA. Symbicort 1604.52 puffs twice a day. -Chronic nicotine dependence patient cigarette smoker Nicotine patch -Moderate cognitive impairment from late onset Alzheimer's dementia -Diabetes mellitus type 2, Levemir 18 units subcu daily. 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 Lasix. Follow electrolytes -Obstructive sleep apnea, unable to wear a mask -Peripheral arterial disease On aspirin, Lipitor -Permanent pacemaker with generator change in August 02-2020 Pacemaker check done recently -Chronic gait dysfunction, and a baseline patient uses a walker -Acute on chronic medical debility from underlying medical problems -DO NOT RESUSCITATE Home medications to be continued. continue patient on Lasix drip. Strict I's and O's. Bronchodilators. No nebulizers. Inhaled steroids. Rey wraps. nephrology, cardiology, pulmonary. ID. on board. Prognosis guarded. Given the complexity and severity of patient's condition expect the patient to be in the hospital at least for 2 overnights. Time with Patient: Greater than 30
[2020-12-08 00:05] LABS: Glucose,Whole Blood 198 mg/dL (75-99)
[2020-12-08] MEDS: ALBUTEROL HFA INHALER INHALATION SCH ×6 (01:38→20:37)
[2020-12-08] MEDS: FUROSEMIDE 100 MG in SODIUM CHLORIDE 0.9% 90 ML IV SCH (03:59)
[2020-12-08] MEDS: PANTOPRAZOLE 40 MG TABLET PO SCH (06:29)
[2020-12-08] MEDS: carvediloL 3.125 MG TAB PO SCH ×2 (06:29→17:46)
[2020-12-08 06:38] LABS: Glucose,Whole Blood 165 mg/dL (75-99)
[2020-12-08] MEDS: INSULIN ASPART (NovoLOG) 100 UNIT/ML VIAL SQ SCH ×4 (06:40→20:52)
[2020-12-08] MEDS: SYMBICORT 160-4.5 MCG INHALER INHALATION SCH ×2 (08:21→20:37)
--- NOTE | 2020-12-08 08:47 | P.PN ---
Subjective Progress Note Date: 12/08/20 Principal diagnosis: Abnormal cardiac enzymes The patient was seen this morning. She continues to be on oxygen regarding the pneumonia. No symptoms of chest pain or chest discomfort. We consider a conservative medical approach regarding the mildly abnormal troponin in the abse nce of any symptoms of chest pain or chest discomfort. The echo revealed impaired LV function was EF around 35% which has been the same as before. We'll follow-up with the patient on when necessary Objective - Vital Signs Vital signs: Vital Signs Temp 98.4 F 12/08/20 04:10 Pulse 71 12/08/20 04:10 Resp 19 12/08/20 04:10 BP 117/58 12/08/20 04:10 Pulse Ox 92 L 12/08/20 04:10 Intake & Output 12/07/20 12/08/20 12/08/20 18:59 06:59 18:59 Intake Total 726.667 185.667 240 Balance 726.667 185.667 240 Weight 80 kg Intake: Intake, IV Titration 66.667 185.667 Amount Furosemide 100 mg In 66.667 185.667 Sodium Chloride 0.9% 90 ml @ 10 MG/HR 10 mls/hr IV .Q10H [facility] Rx#: [id number] Oral 660 240 Other: Voiding Method Diaper Diaper Incontinent Incontinent # Voids 4 3 # Bowel Movements 1 - Constitutional General appearance: Present: no acute distress - Labs CBC & Chem 7: 12/05/20 16:31 12/05/20 16:31 Labs: Abnormal Lab Results - Last 24 Hours (Table) 12/07/20 12/07/20 12/07/20 Range/Units 09:04 09:04 11:53 POC Glucose (mg/dL) 362 H (75-99) mg/dL C-Reactive Protein 5.7 H (<1.0) mg/dL Procalcitonin 0.13 H (0.02-0.09) ng/mL 12/07/20 12/07/20 12/07/20 Range/Units 16:43 16:44 21:06 POC Glucose (mg/dL) 44 L 41 L 171 H (75-99) mg/dL C-Reactive Protein (<1.0) mg/dL Procalcitonin (0.02-0.09) ng/mL 12/08/20 12/08/20 Range/Units 00:03 06:37 POC Glucose (mg/dL) 198 H 165 H (75-99) mg/dL C-Reactive Protein (<1.0) mg/dL Procalcitonin (0.02-0.09) ng/mL Microbiology - Last 24 Hours (Table) 12/05/20 16:31 Blood Culture - Preliminary Blood No Growth after 48 hours 12/05/20 16:31 Blood Culture - Preliminary Blood No Growth after 48 hours Assessment and Plan Assessment: Assessment #1 pneumonia secondary to COVID 19 infection #2 evidence of myocardial injury, chronic, without any evidence of ischemia #3 chronic kidney disease #4 severe cardiomyopathy and status post AICD #5 multiple comorbid conditions Plan #1 consider conservative medical approach regarding the chief point abnormalities #2 continue aspirin as well as oral anticoagulation #3 continue anti-ischemic medication #4 follow-up with the patient on when necessary
[2020-12-08 08:56] LABS: Calcium 8.8 mg/dL (8.4-10.2); Potassium 4.2 mmol/L (3.5-5.1)
[2020-12-08 08:58] LABS: Basophils % (A) 0 %; Eosinophils % (A) 1 %; HCT 28.9 % (39.0-53.0); HGB 9.4 gm/dL (13.0-17.5); Lymphocytes % (A) 19 %; MCH 30.3 pg (25.0-35.0); MCHC 32.4 g/dL (31.0-37.0); MCV 93.3 fL (80.0-100.0); Monocytes # (A) 0.2 k/uL (0-1.0); Monocytes % (A) 4 %; Neutrophils % (A) 74 %; Platelet Count 281 k/uL (150-450); RDW 15.1 % (11.5-15.5); WBC 5.4 k/uL (3.8-10.6)
[2020-12-08] MEDS: INSULIN DETEMIR (LEVEMIR) 100 UNIT/ML SYR SQ SCH (09:49)
[2020-12-08] MEDS: RANOLAZINE 500 MG TAB.ER.12H PO SCH ×2 (09:50→20:57)
[2020-12-08] MEDS: ASPIRIN 81 MG PO SCH (09:51)
[2020-12-08] MEDS: ZINC SULFATE 220 MG CAP PO SCH (09:51)
[2020-12-08] MEDS: SENNOSIDES 8.6 MG TAB PO SCH ×2 (09:51→20:57)
[2020-12-08] MEDS: ASCORBIC ACID 500 MG TAB PO SCH (09:51)
[2020-12-08] MEDS: CHOLECALCIFEROL 10 MCG (400 IU) TABLET PO SCH (09:51)
[2020-12-08] MEDS: SODIUM BICARBONATE TAB 650 MG TAB PO SCH ×4 (09:51→20:57)
[2020-12-08] MEDS: TAMSULOSIN 0.4 MG CAP.ER.24H PO SCH (09:51)
[2020-12-08] MEDS: APIXABAN 2.5 MG TABLET PO SCH ×2 (09:51→20:57)
[2020-12-08 11:41] LABS: Glucose,Whole Blood 214 mg/dL (75-99)
--- NOTE | 2020-12-08 12:09 | P.PN ---
Subjective Progress Note Date: 12/08/20 Principal diagnosis: This 75-year-old male seen with chronic kidney disease, was admitted with Covid pneumonia. He is known with diabetes mellitus, CVA, COPD, dementia and a detention resident His baseline creatinine ranges between 5 mg to 1.97 mg, most recent creatinine was 1.97of 30 to mL per minute he has a urine protein to creatinine ratio of 2.5 g dated 10/03/2019. He has monoclonal gammopathy IgG previously on 12/03/2015 no recent immunofixation results available. He might have monoclonal gammopathy of renal significance or MGRS Since admission blood pressures somewhat low 108/59, heart rate in the 60s and 70s urine output is 912 mL. Creatinine has gone up from 2.4 to 2.9 A chest x-ray shows patchy and interstitial opacities possibly multifocal pneumonia and or interstitial edema. He is on IV Lasix drip. He is awake and alert but confused. He is on room air. Objective - Vital Signs Vital signs: Vital Signs Temp 98.5 F 12/08/20 08:00 Pulse 64 12/08/20 08:00 Resp 18 12/08/20 08:00 BP 108/59 12/08/20 08:00 Pulse Ox 97 12/08/20 08:00 Intake & Output 12/07/20 12/08/20 12/08/20 18:59 06:59 18:59 Intake Total 726.667 185.667 240 Balance 726.667 185.667 240 Weight 80 kg Intake: Intake, IV Titration 66.667 185.667 Amount Furosemide 100 mg In 66.667 185.667 Sodium Chloride 0.9% 90 ml @ 10 MG/HR 10 mls/hr IV .Q10H [facility] Rx#: [id number] Oral 660 240 Other: Voiding Method Diaper Diaper Diaper Incontinent Incontinent Incontinent # Voids 4 3 # Bowel Movements 1 On examination awake alert but confused and disoriented HEENT exam no JVP neck is supple no facial asymmetry. Lungs are clear to auscultation good air entry bilaterally Heart sounds unremarkable for any murmur rub gallop Abdomen soft nontender nondistended Extremity exam was no edema Neurologically awake alert but confused - Labs CBC & Chem 7: 12/08/20 08:02 09/05/21 08:02 Labs: Abnormal Lab Results - Last 24 Hours (Table) 12/07/20 12/07/20 12/07/20 Range/Units 09:04 11:53 16:43 RBC (4.30-5.90) m/uL Hgb (13.0-17.5) gm/dL Hct (39.0-53.0) % Sodium (137-145) mmol/L BUN (9-20) mg/dL Creatinine (0.66-1.25) mg/dL Glucose (74-99) mg/dL POC Glucose (mg/dL) 362 H 44 L (75-99) mg/dL Procalcitonin 0.13 H (0.02-0.09) ng/mL 12/07/20 12/07/20 12/08/20 Range/Units 16:44 21:06 00:03 RBC (4.30-5.90) m/uL Hgb (13.0-17.5) gm/dL Hct (39.0-53.0) % Sodium (137-145) mmol/L BUN (9-20) mg/dL Creatinine (0.66-1.25) mg/dL Glucose (74-99) mg/dL POC Glucose (mg/dL) 41 L 171 H 198 H (75-99) mg/dL Procalcitonin (0.02-0.09) ng/mL 12/08/20 12/08/20 12/08/20 Range/Units 06:37 08:02 08:02 RBC 3.10 L (4.30-5.90) m/uL Hgb 9.4 L (13.0-17.5) gm/dL Hct 28.9 L (39.0-53.0) % Sodium 135 L (137-145) mmol/L BUN 55 H (9-20) mg/dL Creatinine 2.92 H (0.66-1.25) mg/dL Glucose 179 H (74-99) mg/dL POC Glucose (mg/dL) 165 H (75-99) mg/dL Procalcitonin (0.02-0.09) ng/mL 12/08/20 Range/Units 11:40 RBC (4.30-5.90) m/uL Hgb (13.0-17.5) gm/dL Hct (39.0-53.0) % Sodium (137-145) mmol/L BUN (9-20) mg/dL Creatinine (0.66-1.25) mg/dL Glucose (74-99) mg/dL POC Glucose (mg/dL) 214 H (75-99) mg/dL Procalcitonin (0.02-0.09) ng/mL Microbiology - Last 24 Hours (Table) 12/05/20 16:31 Blood Culture - Preliminary Blood No Growth after 48 hours 12/05/20 16:31 Blood Culture - Preliminary Blood No Growth after 48 hours Assessment and Plan Assessment: Impression 1. 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 Serum immunofixation shows IgG monoclonal gammopathy in 2016 but no recent follow-up.. Creatinine at its best is 1.97 recently on 0 08/29/2020, it fluctuates from a high of 6.81 on 12/30/2018 2. Admitted with COVID pneumonia 3. Unlikely congestive heart failure as with diuresis his creatinine has gone up . 4. Anemia of chronic illness hemoglobin is 10.1, and down to 9.4 . 5. Mild degree of non-gap acidosis with bicarb 19 and gap 9. improved to 23 bicarb and gap of 10 6. Mild dementia 7. half-way resident Recommendation 1. Check urine protein to creatinine ratio and urine and serum immunoelectrophoresis 2. Discontinue IV Lasix drip with careful monitoring of labs blood pressures urine output 3continueodium bicarb 650 4 times a day. 5. Check iron saturation. Thank you for this consultation and we'll continue to follow
--- NOTE | 2020-12-08 12:11 | P.PN ---
Subjective Progress Note Date: 12/08/20 Principal diagnosis: Shortness of breath. Pulmonary consult dated 12/06/2020. 75-year-old male, seen in the emergency department, on December 05. He presented to the emergency department, having been brought in by EMS from a residential, for shortness of breath. The patient is not a particularly good historian. He's been sick for at least a couple weeks he tells me. The patient apparently tested positive for coronavirus. He states he apparently has been fully vaccinated. Again his history is a bit sketchy. The patient admits to being short of breath, and having cough. The cough is nonproductive. He denied any fever or chills. He 90 chest pain or chest discomfort. He apparently is also feeling weak. His past medical history includes atrial fibrillation, CHF, COPD, CVA, dementia, diabetes, gastroesophageal reflux disease, hyperlipidemia, hypertension, myocardial infarction, and sleep apnea syndrome. White count 6.1, hemoglobin 10.1, hematocrit 31.3, platelet count 308,000. PT INR PTT and d- dimer were all normal. Sodium 138, potassium 5.2, chlorides 110, CO2 19, anion gap 9, BUN 50, creatinine 2.42. The patient's troponin was 0.055. N-terminal p roBNP was 9810. Testing for newton virus was positive. Chest x-ray showed diffuse bilateral infiltrates, and my opinion, more consistent with CHF. Progress note dated 12/07/2020. 75-year-old male seen in the emergency department on December 05. We saw him in consultation on December 06. He was brought in by EMS from residential, because of shortness of breath. The patient was not a particularly good historian. In the past, he is seen the other pulmonary group. He has a history of atrial fibrillation, CHF, COPD, CVA, dementia, diabetes mellitus, gastroesophageal reflux disease, hyperlipidemia, hypertension, myocardial infarction, sleep apnea syndrome. His hospital doctor is treating him primarily for fluid overload. He did test positive for coronavirus, and was thought to have a component of coronavirus pneumonia. There are no new laboratory data today except for a glucose of 362, a LDH of 426, C-reactive protein of 5.7, and an N-terminal proBNP of 12,100. Chest x-ray from today shows patchy interstitial opacities, which could be consistent with interstitial edema or pne umonia. There is cardiomegaly, as well as an AICD in place. Progress note dated 12/08/2020. 75-year-old male, who was seen in the emergency department on December 05. We saw him in consultation on December 06. He was brought in from the residential with complaints of increasing shortness of breath. Clinically, the patient's doing much better. He remains on 2 L nasal cannula. His saturations are always 98-100%. When asked how is feeling, the patient always answers that he is doing great. White count 5.4, hemoglobin 9.4, hematocrit 28.9, platelet count 281,000. Sodium 135, potassium 4.2, chlorides 102, CO2 23, anion gap 10, BUN 55, and creatinine 2.92. No recent chest x-ray to review. Chest x-ray from December 07 is re-reviewed. Objective - Vital Signs Vital signs: Vital Signs Temp 98.5 F 12/08/20 08:00 Pulse 64 12/08/20 08:00 Resp 18 12/08/20 08:00 BP 108/59 12/08/20 08:00 Pulse Ox 97 12/08/20 08:00 Intake & Output 12/07/20 12/08/20 12/08/20 18:59 06:59 18:59 Intake Total 726.667 185.667 240 Balance 726.667 185.667 240 Weight 80 kg Intake: Intake, IV Titration 66.667 185.667 Amount Furosemide 100 mg In 66.667 185.667 Sodium Chloride 0.9% 90 ml @ 10 MG/HR 10 mls/hr IV .Q10H [facility] Rx#: [id number] Oral 660 240 Other: Voiding Method Diaper Diaper Diaper Incontinent Incontinent Incontinent # Voids 4 3 # Bowel Movements 1 - Exam No acute distress, oriented 3. No conversational dyspnea or use of accessory muscles. 2 L saturation is 98%. HEENT examination is grossly unremarkable. Neck supple. Full range of motion. No adenopathy thyromegaly or neck vein distention. Cardiovascular examination reveals regular rhythm rate. S1-S2 normal. No S3 or S4. No discernible murmur noted. Heart rate 64 bpm. Lungs reveal scattered rhonchi and bibasilar crackles. Breath sounds equal bilaterally. No wheezes. Abdomen soft bowel sounds are heard. No masses or tenderness. Extremities are intact. No cyanosis clubbing or edema. Skin is without rash or lesion. Neurologic examination is brief but nonfocal. - Labs CBC & Chem 7: 12/08/20 08:02 12/08/20 08:02 Labs: Abnormal Lab Results - Last 24 Hours (Table) 12/07/20 12/07/20 12/07/20 Range/Units 09:04 16:43 16:44 RBC (4.30-5.90) m/uL Hgb (13.0-17.5) gm/dL Hct (39.0-53.0) % Sodium (137-145) mmol/L BUN (9-20) mg/dL Creatinine (0.66-1.25) mg/dL Glucose (74-99) mg/dL POC Glucose (mg/dL) 44 L 41 L (75-99) mg/dL Procalcitonin 0.13 H (0.02-0.09) ng/mL 12/07/20 12/08/20 12/08/20 Range/Units 21:06 00:03 06:37 RBC (4.30-5.90) m/uL Hgb (13.0-17.5) gm/dL Hct (39.0-53.0) % Sodium (137-145) mmol/L BUN (9-20) mg/dL Creatinine (0.66-1.25) mg/dL Glucose (74-99) mg/dL POC Glucose (mg/dL) 171 H 198 H 165 H (75-99) mg/dL Procalcitonin (0.02-0.09) ng/mL 12/08/20 12/08/20 12/08/20 Range/Units 08:02 08:02 11:40 RBC 3.10 L (4.30-5.90) m/uL Hgb 9.4 L (13.0-17.5) gm/dL Hct 28.9 L (39.0-53.0) % Sodium 135 L (137-145) mmol/L BUN 55 H (9-20) mg/dL Creatinine 2.92 H (0.66-1.25) mg/dL Glucose 179 H (74-99) mg/dL POC Glucose (mg/dL) 214 H (75-99) mg/dL Procalcitonin (0.02-0.09) ng/mL Microbiology - Last 24 Hours (Table) 12/05/20 16:31 Blood Culture - Preliminary Blood No Growth after 48 hours 12/05/20 16:31 Blood Culture - Preliminary Blood No Growth after 48 hours Assessment and Plan Assessment: Shortness of breath, with hypoxemia, likely multifactorial, in part related to COVID 19 pneumonia and/or congestive heart failure. History of atrial fibrillation, status post pacemaker insertion. History of CHF. History of COPD from previous heavy tobacco use. History of CVA/TIA. History of dementia. History of diabetes mellitus. History of gastroesophageal reflux disease. History of hyperlipidemia. History of hypertension. Prior history of myocardial infarction. History of sleep apnea syndrome. History of stage III chronic kidney disease. Plan: Plan dated 12/06/2020. The patient is given an albuterol inhaler, to be used 2 puffs as needed. The patient is already on Eliquis 2.5 mg twice a day. In addition, we had vitamin C, vitamin D3, and zinc. We also had Symbicort 160/4.5, 2 puffs twice a day. In addition, the patient is Decadron 6 mg a day. In my opinion, he is not a candidate for REM. He is also not sick enough to receive an interleukin-6 antagonist. We will continue to follow make recommendations where appropriate. Periodic measurements of inflammatory markers would be appropriate and every second or third day chest x-rays would also be helpful. The patient is a DO NOT RESUSCITATE. Plan dated 12/07/2020. Currently, the patient appears to be doing relatively well. He is much less short of breath. His saturations are 100% on 3 L. The patient's getting appropriate medications. Please see the note above. The patient is not a candidate for REM. He is not sick enough to receive an interleukin-6 antagonist. Additional recommendations and suggestions are forthcoming. He remains on a Lasix drip as per the Hospital service. We will continue to follow make recommendations where appropriate. Prognosis is guarded. The patient is a DO NOT RESUSCITATE. Plan dated 12/08/2020. Currently, the patient's on 2 L nasal cannula. His saturations are excellent. Remains on Lasix drip at 10 mg an hour. From the pulmonary standpoint, he is much improved. We will continue to follow. The patient is a DO NOT RESUSCITATE patient. No additional recommendations are made at this time. His medications are reviewed. Everything seems to be in order. We will continue to follow make recommendations where appropriate. Time with Patient: Less than 30
[2020-12-08 14:01] LABS: % Iron Saturation 9.33 (15.00-50.00)
[2020-12-08 16:54] LABS: Glucose,Whole Blood 196 mg/dL (75-99)
[2020-12-08 20:25] LABS: Glucose,Whole Blood 153 mg/dL (75-99)
[2020-12-08] MEDS: ATORVASTATIN 80 MG TAB PO SCH (20:57)
[2020-12-08] MEDS: LATANOPROST 0.005% OPHTH DROPS 2.5 ML BTL RIGHT EYE SCH (20:58)
--- NOTE | 2020-12-08 23:44 | PN ---
PROGRESS NOTE DATE OF SERVICE: 12/08/2020 REASON FOR FOLLOWUP: Positive COVID test and question of pneumonia. INTERVAL HISTORY: The patient is afebrile. He is currently breathing comfortably on 2 L cannula. Denies any chest pain, shortness of breath or cough. No abdominal pain, no diarrhea. PHYSICAL EXAMINATION: Blood pressure 133/57 with a pulse of 70, temperature 98.6. He is 97% on 2 L nasal cannula. General description is an elderly male lying in bed in no distress. Respiratory system: Unlabored breathing, decreased breath sounds, no wheeze. Heart S1, S2. Regular rate and rhythm. Abdomen soft, no tenderness. White count is 9.5, white count 5.4, BUN 55, creatinine is 2.92. DIAGNOSTIC IMPRESSION AND PLAN: Patient admitted to the hospital with shortness of breath, multifactorial in this patient mostly of ( ), rule out pneumonia. Did have a positive COVID test. Continue supportive treatment. No need for Remdesivir. MMODL / IJN: [id number] /
--- NOTE | 2020-12-08 23:52 | P.PN ---
Subjective Progress Note Date: 12/08/20 This is a 75-year-old male with complex past medical history noted below significant for prior stroke and underlying dementia. Chronic stable medical conditions include atrial fibrillation, autonomic dysfunction from diabetes, pacemaker COPD, moderate cognitive impairment, diabetes, GERD, hyperlipidemia, hypertension, chronic kidney disease. Patient was sent in from the local ECF to the ER for increasing shortness of breath, decreased oral intake. Failure to thrive. Patient also tested positive for COVID. Denied any fever. Tired rundown. Patient is 97% on room air in the ER. 12/07/2020 Patient was admitted to the hospital due to fluid overload and Covid pneumonia. Patient is currently lying in the bed. Awake alert. Somewhat poor historian. Denied any complaints of chest pain. No complaints of worsening shortness of breath. Still having bilateral lower extremity leg swelling and both are Rey wrapped. Patient is being continued on Lasix drip due to fluid overload. Does have history of chronic kidney disease with monoclonal gammopathy. Laboratory data showed LDH 426, CRP 5.7 and procalcitonin level is 0.13. Patient is also on anticoagulation with Eliquis. 12/08/2020 Patient is currently lying in bed. Awake alert and slightly confused. Requiring oxygen at 2 L via nasal cannula. Denied any complaints of chest pain. Tolerating oral diet. No nausea vomiting abdominal pain or diarrhea. Laboratory data showed BUN 55 and creatinine 2.92 and blood sugar is 179 WBC 5.4 hemoglobin 9.4 and platelets 281 Lasix drip has been discontinued. Bilateral lower extremity swelling is improving.. Rey wrap. Nephrology and pulmonary is on board. Active Medications Generic Name Dose Route Start Last Admin Trade Name Freq PRN Reason Stop Dose Admin Acetaminophen 650 mg 12/05/20 18:59 Acetaminophen Tab 325 Mg Tab PO Q4H PRN Pain Albuterol Sulfate 2 puff 12/05/20 20:00 12/08/20 20:37 Albuterol Hfa Inhaler INHALATION 2 puff Q4HR [facility] Administration Apixaban 2.5 mg 12/05/20 21:00 12/08/20 20:57 Apixaban 2.5 Mg Tablet PO 2.5 mg BID [facility] Administration Protocol Ascorbic Acid 500 mg 12/06/20 10:00 12/08/20 09:51 Ascorbic Acid 500 Mg Tab PO 500 mg DAILY [facility] Administration Aspirin 81 mg 12/07/20 09:00 12/08/20 09:51 Aspirin 81 Mg PO 81 mg DAILY [facility] Administration Atorvastatin Calcium 80 mg 12/05/20 21:00 12/08/20 20:57 Atorvastatin 80 Mg Tab PO 80 mg HS [facility] Administration Budesonide/Formoterol Fumarate 2 puff 12/06/20 20:00 12/08/20 20:37 Symbicort 160-4.5 Mcg Inhaler INHALATION 2 puff RT-BID [facility] Administration Carvedilol 3.125 mg 12/05/20 21:00 12/08/20 17:46 Carvedilol 3.125 Mg Tab PO 3.125 mg BID-W/MEALS [facility] Administration Cholecalciferol 10 mcg 12/06/20 10:00 12/08/20 09:51 Cholecalciferol 10 Mcg (400 Iu) Tablet PO 10 mcg DAILY [facility] Administration Insulin Aspart 0 unit 12/06/20 17:30 12/08/20 20:52 Insulin Aspart (Novolog) 100 Unit/Ml Vial SQ Not Given [facility] Protocol Insulin Detemir 18 unit 12/07/20 07:00 12/08/20 09:49 Insulin Detemir (Levemir) 100 Unit/Ml Syr SQ Not Given DAILY@0700 [facility] Latanoprost 1 drops 12/05/20 21:00 12/08/20 20:58 Latanoprost 0.005% Ophth Drops 2.5 Ml Btl RIGHT EYE 1 drops HS [facility] Administration Pantoprazole Sodium 40 mg 12/06/20 07:30 12/08/20 06:29 Pantoprazole 40 Mg Tablet PO 40 mg AC-BRKFST [facility] Administration Ranolazine 1,000 mg 12/05/20 21:00 12/08/20 20:57 Ranolazine 500 Mg Tab.Er.12h PO 1,000 mg BID [facility] Administration Senna 8.6 mg 12/05/20 21:00 12/08/20 20:57 Sennosides 8.6 Mg Tab PO 8.6 mg BID [facility] Administration Sodium Bicarbonate 650 mg 12/07/20 13:00 12/08/20 20:57 Sodium Bicarbonate Tab 650 Mg Tab PO 650 mg QID [facility] Administration Tamsulosin HCl 0.4 mg 12/06/20 09:00 12/08/20 09:51 Tamsulosin 0.4 Mg Cap.Er.24h PO 0.4 mg DAILY [facility] Administration Zinc Sulfate 220 mg 12/06/20 10:00 12/08/20 09:51 Zinc Sulfate 220 Mg Cap PO 220 mg DAILY [facility] Administration Objective - Vital Signs Vital signs: Vital Signs Temp 98.5 F 12/08/20 08:00 Pulse 64 12/08/20 08:00 Resp 18 12/08/20 08:00 BP 108/59 12/08/20 08:00 Pulse Ox 97 12/08/20 08:00 Intake & Output 12/07/20 12/08/20 12/08/20 18:59 06:59 18:59 Intake Total 726.667 185.667 240 Balance 726.667 185.667 240 Weight 80 kg Intake: Intake, IV Titration 66.667 185.667 Amount Furosemide 100 mg In 66.667 185.667 Sodium Chloride 0.9% 90 ml @ 10 MG/HR 10 mls/hr IV .Q10H [facility] Rx#: [id number] Oral 660 240 Other: Voiding Method Diaper Diaper Diaper Incontinent Incontinent Incontinent # Voids 4 3 # Bowel Movements 1 - Exam GENERAL APPEARANCE: BMI 24.0, sitting at the edge of the bed, tired, awake HEENT: Normal external appearance of nose and ear. Oral cavity normal EYES: Pupils equal. Conjunctiva normal. NECK: JVD unable to assess Mass not palpable. RESPIRATORY: Respiratory effort increased Decreased breath sounds. Occasional crackles CARDIOVASCULAR: First and second sounds normal. Significant edema ABDOMEN: Soft. Liver and spleen not palpable. No tenderness. No mass palpable. PSYCHIATRY: Patient is able to answer simple questions. Mood and affect slightly low NEUROLOGICAL: Cranial nerves grossly intact. Moving all 4 limbs MUSCULAR skeletal: Evidence of OA. Dressing over the right verde LYMPHATICS: No lymph nodes palpable in neck and axilla - Labs CBC & Chem 7: 12/08/20 08:02 12/08/20 08:02 Labs: Abnormal Lab Results - Last 24 Hours (Table) 12/07/20 12/07/20 12/07/20 Range/Units 09:04 11:53 16:43 RBC (4.30-5.90) m/uL Hgb (13.0-17.5) gm/dL Hct (39.0-53.0) % Sodium (137-145) mmol/L BUN (9-20) mg/dL Creatinine (0.66-1.25) mg/dL Glucose (74-99) mg/dL POC Glucose (mg/dL) 362 H 44 L (75-99) mg/dL Procalcitonin 0.13 H (0.02-0.09) ng/mL 12/07/20 12/07/20 12/08/20 Range/Units 16:44 21:06 00:03 RBC (4.30-5.90) m/uL Hgb (13.0-17.5) gm/dL Hct (39.0-53.0) % Sodium (137-145) mmol/L BUN (9-20) mg/dL Creatinine (0.66-1.25) mg/dL Glucose (74-99) mg/dL POC Glucose (mg/dL) 41 L 171 H 198 H (75-99) mg/dL Procalcitonin (0.02-0.09) ng/mL 12/08/20 12/08/20 12/08/20 Range/Units 06:37 08:02 08:02 RBC 3.10 L (4.30-5.90) m/uL Hgb 9.4 L (13.0-17.5) gm/dL Hct 28.9 L (39.0-53.0) % Sodium 135 L (137-145) mmol/L BUN 55 H (9-20) mg/dL Creatinine 2.92 H (0.66-1.25) mg/dL Glucose 179 H (74-99) mg/dL POC Glucose (mg/dL) 165 H (75-99) mg/dL Procalcitonin (0.02-0.09) ng/mL Microbiology - Last 24 Hours (Table) 12/05/20 16:31 Blood Culture - Preliminary Blood No Growth after 48 hours 12/05/20 16:31 Blood Culture - Preliminary Blood No Growth after 48 hours Assessment and Plan Assessment: -Acute on chronic congestive heart failure exacerbation from systolic dysfunction EF 30-35% Breathing status and leg swelling is much improved. Lasix drip has been discontinued.. Strict I's and O's. Follow electrolytes. 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 base line cr 1.3 Lasix drip. Follow renal function. nephrology is following. - autonomic dysfunction from diabetes Rey wraps -COVID 19 positive. Pulse ox 97% on room air. He has been put on oxygen empirically when necessary. Has no fever. Was started on dexamethasone by pulmonary. Vitamin C, vitamin D, zinc supplemented. -Persistent atrial fibrillation. Paced rhythm. On eliquis - COPD in a current smoker, Ventolin HFA. Symbicort 1604.52 puffs twice a day. -Chronic nicotine dependence patient cigarette smoker Nicotine patch -Moderate cognitive impairment from late onset Alzheimer's dementia -Diabetes mellitus type 2, Levemir 18 units subcu daily. 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 Lasix. Follow electrolytes -Obstructive sleep apnea, unable to wear a mask -Peripheral arterial disease On aspirin, Lipitor -Permanent pacemaker with generator change in August 02-2020 Pacemaker check done recently -Chronic gait dysfunction, and a baseline patient uses a walker -Acute on chronic medical debility from underlying medical problems -DO NOT RESUSCITATE Time with Patient: Greater than 30
[2020-12-09] MEDS: ALBUTEROL HFA INHALER INHALATION SCH ×6 (03:53→20:34)
[2020-12-09 06:25] LABS: Glucose,Whole Blood 183 mg/dL (75-99)
[2020-12-09] MEDS: carvediloL 3.125 MG TAB PO SCH ×2 (06:32→17:04)
[2020-12-09] MEDS: INSULIN DETEMIR (LEVEMIR) 100 UNIT/ML SYR SQ SCH (06:32)
[2020-12-09] MEDS: INSULIN ASPART (NovoLOG) 100 UNIT/ML VIAL SQ SCH ×4 (06:32→20:39)
[2020-12-09] MEDS: SYMBICORT 160-4.5 MCG INHALER INHALATION SCH ×2 (07:52→20:34)
[2020-12-09 08:00] LABS: Basophils % (A) 0 %; Eosinophils % (A) 1 %; HCT 28.5 % (39.0-53.0); HGB 9.4 gm/dL (13.0-17.5); Lymphocytes # (A) 0.7 k/uL (1.0-4.8); Lymphocytes % (A) 14 %; MCH 30.6 pg (25.0-35.0); MCV 92.9 fL (80.0-100.0); Mean Platelet Volume 6.6; Monocytes # (A) 0.2 k/uL (0-1.0); Monocytes % (A) 4 %; Neutrophils # (A) 3.9 k/uL (1.3-7.7); Neutrophils % (A) 79 %; Platelet Count 270 k/uL (150-450); RBC 3.07 m/uL (4.30-5.90); RDW 15.2 % (11.5-15.5)
[2020-12-09 08:12] LABS: Calcium 8.4 mg/dL (8.4-10.2); Potassium 4.1 mmol/L (3.5-5.1)
[2020-12-09] MEDS: ZINC SULFATE 220 MG CAP PO SCH (09:19)
[2020-12-09] MEDS: SODIUM BICARBONATE TAB 650 MG TAB PO SCH ×4 (09:20→20:44)
[2020-12-09] MEDS: SENNOSIDES 8.6 MG TAB PO SCH ×2 (09:20→20:43)
[2020-12-09] MEDS: TAMSULOSIN 0.4 MG CAP.ER.24H PO SCH (09:20)
[2020-12-09] MEDS: PANTOPRAZOLE 40 MG TABLET PO SCH (09:20)
[2020-12-09] MEDS: ASPIRIN 81 MG PO SCH (09:20)
[2020-12-09] MEDS: RANOLAZINE 500 MG TAB.ER.12H PO SCH ×2 (09:20→20:43)
[2020-12-09] MEDS: ASCORBIC ACID 500 MG TAB PO SCH (09:20)
[2020-12-09] MEDS: APIXABAN 2.5 MG TABLET PO SCH ×2 (09:20→20:43)
[2020-12-09] MEDS: CHOLECALCIFEROL 10 MCG (400 IU) TABLET PO SCH (09:21)
--- NOTE | 2020-12-09 11:47 | XR ---
EXAMINATION TYPE: XR chest 1V portable DATE OF EXAM: 12/09/2020 HISTORY: Shortness of breath. COMPARISON: 12/07/2020 TECHNIQUE: Single view of the chest is submitted. FINDINGS: Demonstrated are scattered senescent parenchymal change. Scattered bilateral infiltrates persist greatest within the right upper lobe however there is the sug gestion of interval improvement. Correlate clinically and progress studies are advised. The heart is stable. Hilar and mediastinal structures are within normal limits. Degenerative changes are seen of the dorsal spine. IMPRESSION: 1. Scattered bilateral infiltrates persist greatest within the right upper lobe however there is the suggestion of interval improvement. Correlate clinically and progress studies are advised.
[2020-12-09 12:11] LABS: Glucose,Whole Blood 105 mg/dL (75-99)
[2020-12-09] MEDS ORDERED: SODIUM FERRIC GLUCONAT-SUCROSE 125 MG in SODIUM CHLORIDE 0.9% 100 ML IVPB ONE (12:33)
--- NOTE | 2020-12-09 12:33 | P.PN ---
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 He is known with diabetes mellitus, CVA, COPD, dementia and a [facility] resident His baseline creatinine ranges between 5 mg to 1.97 mg, most recent creatinine was 1.97 with GFR of 30 to mL per minute, he has a urine protein to creatinine ratio of 2.5 g dated 10/03/2019. A chest x-ray shows patchy and interstitial opacities possibly multifocal pneumonia and or interstitial edema. He is on IV Lasix drip. Lasix was disconti nued yesterday because of worsening creatinine and blood pressure being in the 100-110 systolic range. He is awake and alert but confused. He is on room air. He continues to cough. He does eat with assistance Objective - Vital Signs Vital signs: Vital Signs Temp 98.4 F 12/09/20 08:00 Pulse 68 12/09/20 08:00 Resp 18 12/09/20 08:00 BP 102/51 12/09/20 08:00 Pulse Ox 99 12/09/20 08:00 Intake & Output 12/08/20 12/09/20 12/09/20 18:59 06:59 18:59 Intake Total 780 0 Balance 780 0 Weight 80.5 kg Intake: Oral 780 0 Other: Voiding Method Diaper Urinal Incontinent Diaper Incontinent # Voids 4 # Bowel Movements 1 On examination awake alert but confused and disoriented HEENT exam no JVP neck is supple no facial asymmetry. Lungs are significant for bilateral coarse crackles with fair air entry bilaterally Heart sounds unremarkable for any murmur rub gallop Abdomen soft nontender nondistended Extremity exam was no edema Neurologically awake alert but confused - Labs CBC & Chem 7: 12/09/20 07:36 12/09/20 07:36 Labs: Abnormal Lab Results - Last 24 Hours (Table) 12/07/20 12/08/20 12/08/20 Range/Units 09:04 16:53 20:23 RBC (4.30-5.90) m/uL Hgb (13.0-17.5) gm/dL Hct (39.0-53.0) % Lymphocytes # (1.0-4.8) k/uL BUN (9-20) mg/dL Creatinine (0.66-1.25) mg/dL Glucose (74-99) mg/dL POC Glucose (mg/dL) 196 H 153 H (75-99) mg/dL Iron 21 L (65-175) ug/dL TIBC 225 L (228-460) ug/dL % Saturation 9.33 L (15.00-50.00) 12/09/20 12/09/20 12/09/20 Range/Units 06:24 07:36 07:36 RBC 3.07 L (4.30-5.90) m/uL Hgb 9.4 L (13.0-17.5) gm/dL Hct 28.5 L (39.0-53.0) % Lymphocytes # 0.7 L (1.0-4.8) k/uL BUN 65 H (9-20) mg/dL Creatinine 3.14 H (0.66-1.25) mg/dL Glucose 154 H (74-99) mg/dL POC Glucose (mg/dL) 183 H (75-99) mg/dL Iron (65-175) ug/dL TIBC (228-460) ug/dL % Saturation (15.00-50.00) 12/09/20 Range/Units 11:51 RBC (4.30-5.90) m/uL Hgb (13.0-17.5) gm/dL Hct (39.0-53.0) % Lymphocytes # (1.0-4.8) k/uL BUN (9-20) mg/dL Creatinine (0.66-1.25) mg/dL Glucose (74-99) mg/dL POC Glucose (mg/dL) 105 H (75-99) mg/dL Iron (65-175) ug/dL TIBC (228-460) ug/dL % Saturation (15.00-50.00) Microbiology - Last 24 Hours (Table) 12/05/20 16:31 Blood Culture - Preliminary Blood No Growth after 72 hours 12/05/20 16:31 Blood Culture - Preliminary Blood No Growth after 72 hours Assessment and Plan Assessment: Impression 1. Acute kidney injury secondary to Covid and hypertension. 2. 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 . Creatinine at its best is 1.97 recently on 08/29/2020, it fluctuates from a high of 6.81 on 12/30/2018 2. Admitted with COVID pneumonia 3. Unlikely congestive heart failure as with diuresis his creatinine has gone up . 4. Anemia of chronic illness hemoglobin is 10.1, and down to 9.4 . 5. Mild degree of non-gap acidosis with bicarb 19 and gap 9. improved to 25 6. Mild dementia 7. Iron deficiency, saturation 90.2% on 12/07/2020 8. care home resident with baseline confusion Recommendation 1. Check urine protein to creatinine ratio and urine and serum immuno electrophoresis 2. Avoid diuresis at this time 3. continue Sodium bicarb 650 4 times a day 4. IV Ferrlecit 125 mg 1 doseou for this consultation and we'll continue to follow
--- NOTE | 2020-12-09 12:54 | P.PN ---
Subjective Progress Note Date: 12/09/20 Principal diagnosis: Shortness of breath. Pulmonary consult dated 12/06/2020. 75-year-old male, seen in the emergency department, on December 05. He presented to the emergency department, having been brought in by EMS from a residential, for shortness of breath. The patient is not a particularly good historian. He's been sick for at least a couple weeks he tells me. The patient apparently tested positive for coronavirus. He states he apparently has been fully vaccinated. Again his history is a bit sketchy. The patient admits to being short of breath, and having cough. The cough is nonproductive. He denied any fever or chills. He 90 chest pain or chest discomfort. He apparently is also feeling weak. His past medical history includes atrial fibrillation, CHF, COPD, CVA, dementia, diabetes, gastroesophageal reflux disease, hyperlipidemia, hypertension, myocardial infarction, and sleep apnea syndrome. White count 6.1, hemoglobin 10.1, hematocrit 31.3, platelet count 308,000. PT INR PTT and d- dimer were all normal. Sodium 138, potassium 5.2, chlorides 110, CO2 19, anion gap 9, BUN 50, creatinine 2.42. The patient's troponin was 0.055. N-terminal p roBNP was 9810. Testing for newton virus was positive. Chest x-ray showed diffuse bilateral infiltrates, and my opinion, more consistent with CHF. Progress note dated 12/07/2020. 75-year-old male seen in the emergency department on December 05. We saw him in consultation on December 06. He was brought in by EMS from residential, because of shortness of breath. The patient was not a particularly good historian. In the past, he is seen the other pulmonary group. He has a history of atrial fibrillation, CHF, COPD, CVA, dementia, diabetes mellitus, gastroesophageal reflux disease, hyperlipidemia, hypertension, myocardial infarction, sleep apnea syndrome. His hospital doctor is treating him primarily for fluid overload. He did test positive for coronavirus, and was thought to have a component of coronavirus pneumonia. There are no new laboratory data today except for a glucose of 362, a LDH of 426, C-reactive protein of 5.7, and an N-terminal proBNP of 12,100. Chest x-ray from today shows patchy interstitial opacities, which could be consistent with interstitial edema or pne umonia. There is cardiomegaly, as well as an AICD in place. Progress note dated 12/08/2020. 75-year-old male, who was seen in the emergency department on December 05. We saw him in consultation on December 06. He was brought in from the residential with complaints of increasing shortness of breath. Clinically, the patient's doing much better. He remains on 2 L nasal cannula. His saturations are always 98-100%. When asked how is feeling, the patient always answers that he is doing great. White count 5.4, hemoglobin 9.4, hematocrit 28.9, platelet count 281,000. Sodium 135, potassium 4.2, chlorides 102, CO2 23, anion gap 10, BUN 55, and creatinine 2.92. No recent chest x-ray to review. Chest x-ray from December 07 is re-reviewed. Progress note dated 12/09/2020. 75-year-old male, initially seen in the emergency department on December 05. We saw him in consultation the following day, December 06. He was brought in from the residential with complaints of increasing shortness of breath. Currently, on room air, her saturations are 93-94%. He seems relatively alert not de monstrating any evidence of shortness of breath, or respiratory distress. Yesterday, the patient was still on a Lasix drip for CHF. Currently he is not on that medication. White count 5, hemoglobin 9.4, hematocrit 28.5, platelet count 270,000. Sodium, potassium, chloride, CO2, anion gap are all normal. BUN and creatinine were 65 and 3.14. Chest x-ray data today, still shows some bilateral abnormalities, but overall, the chest x-rays improved. Objective - Vital Signs Vital signs: Vital Signs Temp 98.3 F 12/09/20 12:00 Pulse 69 12/09/20 12:00 Resp 16 12/09/20 12:00 BP 96/47 12/09/20 12:00 Pulse Ox 99 12/09/20 12:00 Intake & Output 12/08/20 12/09/20 12/09/20 18:59 06:59 18:59 Intake Total 780 0 Balance 780 0 Weight 80.5 kg Intake: Oral 780 0 Other: Voiding Method Diaper Urinal Incontinent Diaper Incontinent # Voids 4 1 # Bowel Movements 1 - Exam No acute distress, oriented 3. No conversational dyspnea or use of accessory muscles. 2 L saturation is 99%. Room air saturation is 93-94%. HEENT examination is grossly unremarkable. Neck supple. Full range of motion. No adenopathy thyromegaly or neck vein distention. Cardiovascular examination reveals regular rhythm rate. S1-S2 normal. No S3 or S4. No discernible murmur noted. Heart rate 69 bpm. Lungs reveal scattered rhonchi and bibasilar crackles. Breath sounds equal bilaterally. No wheezes. The patient's cough is wet and congested. Abdomen soft bowel sounds are heard. No masses or tenderness. Extremities are intact. No cyanosis clubbing or edema. Skin is without rash or lesion. Neurologic examination is brief but nonfocal. - Labs CBC & Chem 7: 12/09/20 07:36 12/09/20 07:36 Labs: Abnormal Lab Results - Last 24 Hours (Table) 12/07/20 12/08/20 12/08/20 Range/Units 09:04 16:53 20:23 RBC (4.30-5.90) m/uL Hgb (13.0-17.5) gm/dL Hct (39.0-53.0) % Lymphocytes # (1.0-4.8) k/uL BUN (9-20) mg/dL Creatinine (0.66-1.25) mg/dL Glucose (74-99) mg/dL POC Glucose (mg/dL) 196 H 153 H (75-99) mg/dL Iron 21 L (65-175) ug/dL TIBC 225 L (228-460) ug/dL % Saturation 9.33 L (15.00-50.00) 12/09/20 12/09/20 12/09/20 Range/Units 06:24 07:36 07:36 RBC 3.07 L (4.30-5.90) m/uL Hgb 9.4 L (13.0-17.5) gm/dL Hct 28.5 L (39.0-53.0) % Lymphocytes # 0.7 L (1.0-4.8) k/uL BUN 65 H (9-20) mg/dL Creatinine 3.14 H (0.66-1.25) mg/dL Glucose 154 H (74-99) mg/dL POC Glucose (mg/dL) 183 H (75-99) mg/dL Iron (65-175) ug/dL TIBC (228-460) ug/dL % Saturation (15.00-50.00) 12/09/20 Range/Units 11:51 RBC (4.30-5.90) m/uL Hgb (13.0-17.5) gm/dL Hct (39.0-53.0) % Lymphocytes # (1.0-4.8) k/uL BUN (9-20) mg/dL Creatinine (0.66-1.25) mg/dL Glucose (74-99) mg/dL POC Glucose (mg/dL) 105 H (75-99) mg/dL Iron (65-175) ug/dL TIBC (228-460) ug/dL % Saturation (15.00-50.00) Microbiology - Last 24 Hours (Table) 12/05/20 16:31 Blood Culture - Preliminary Blood No Growth after 72 hours 12/05/20 16:31 Blood Culture - Preliminary Blood No Growth after 72 hours Assessment and Plan Assessment: Shortness of breath, with hypoxemia, likely multifactorial, in part related to COVID 19 pneumonia and/or congestive heart failure. History of atrial fibrillation, status post pacemaker insertion. History of CHF. History of COPD from previous heavy tobacco use. History of CVA/TIA. History of dementia. History of diabetes mellitus. History of gastroesophageal reflux disease. History of hyperlipidemia. History of hypertension. Prior history of myocardial infarction. History of sleep apnea syndrome. History of stage III chronic kidney disease. Plan: Plan dated 12/06/2020. The patient is given an albuterol inhaler, to be used 2 puffs as needed. The patient is already on Eliquis 2.5 mg twice a day. In addition, we had vitamin C, vitamin D3, and zinc. We also had Symbicort 160/4.5, 2 puffs twice a day. In addition, the patient is Decadron 6 mg a day. In my opinion, he is not a candidate for REM. He is also not sick enough to receive an interleukin-6 antagonist. We will continue to follow make recommendations where appropriate. Periodic measurements of inflammatory markers would be appropriate and every second or third day chest x-rays would also be helpful. The patient is a DO NOT RESUSCITATE. Plan dated 12/07/2020. Currently, the patient appears to be doing relatively well. He is much less short of breath. His saturations are 100% on 3 L. The patient's getting ap propriate medications. Please see the note above. The patient is not a candidate for REM. He is not sick enough to receive an interleukin-6 antagonist. Additional recommendations and suggestions are forthcoming. He remains on a Lasix drip as per the Hospital service. We will continue to follow make recommendations where appropriate. Prognosis is guarded. The patient is a DO NOT RESUSCITATE. Plan dated 12/08/2020. Currently, the patient's on 2 L nasal cannula. His saturations are excellent. Remains on Lasix drip at 10 mg an hour. From the pulmonary standpoint, he is much improved. We will continue to follow. The patient is a DO NOT RESUSCITATE patient. No additional recommendations are made at this time. His medications are reviewed. Everything seems to be in order. We will continue to follow make recommendations where appropriate. Plan dated 12/09/2020. The patient appears to be doing better. On room air, saturations are 93-94%. On 2 L, he is at 99%. The Lasix IV has been discontinued. The patient appears to be doing better. There is no evidence of any respiratory distress, audible wheezing, use of accessory muscles, or conversational dyspnea. His labs, and x- ray are reviewed. We will continue to follow the patient and make recommendations where appropriate. Time with Patient: Less than 30
[2020-12-09] MEDS: LACTATED RINGERS 1,000 ML IV SCH (14:13)
[2020-12-09 16:55] LABS: Glucose,Whole Blood 140 mg/dL (75-99)
[2020-12-09 20:33] LABS: Glucose,Whole Blood 123 mg/dL (75-99)
[2020-12-09] MEDS: ATORVASTATIN 80 MG TAB PO SCH (20:43)
[2020-12-09] MEDS: LATANOPROST 0.005% OPHTH DROPS 2.5 ML BTL RIGHT EYE SCH (20:44)
--- NOTE | 2020-12-09 21:14 | PN ---
PROGRESS NOTE DATE OF SERVICE: 12/09/2020 REASON FOR FOLLOWUP: Positive COVID test and a question of pneumonia. INTERVAL HISTORY: The patient is afebrile. He is currently breathing comfortably, currently on 2 L nasal cannula. The patient denies having any chest pain. Did have a congested cough, not bringing up any sputum. No abdominal pain or diarrhea. PHYSICAL EXAMINATION: Blood pressure 117/58 with a pulse of 70, temperature 98.4. He is 95% on 2 L nasal cannula. GENERAL DESCRIPTION: General description is an elderly male lying in bed in no distress. RESPIRATORY SYSTEM: Unlabored breathing. Decreased breath sounds at the bases. No wheeze. HEART: S1, S2. Regular rate and rhythm. ABDOMEN: Soft. No tenderness. LABS: Hemoglobin , white count 5.0, BUN of 65, creatinine 3.14. Blood culture has been negative. Chest x-ray repeated showing scattered bilateral infiltrate persists. DIAGNOSTIC IMPRESSION AND PLAN: Patient admitted to hospital with shortness of breath, mental status changes, and did have a positive COVID test. The patient seems to be clinically responding to the current supportive treatment of the Eliquis, zinc and ascorbic acid; to continue while monitoring clinical course closely. Continue supportive care. MMODL / IJN: [id number] /
--- NOTE | 2020-12-09 23:50 | P.PN ---
Subjective Progress Note Date: 12/09/20 This is a 75-year-old male with complex past medical history noted below significant for prior stroke and underlying dementia. Chronic stable medical conditions include atrial fibrillation, autonomic dysfunction from diabetes, pacemaker COPD, moderate cognitive impairment, diabetes, GERD, hyperlipidemia, hypertension, chronic kidney disease. Patient was sent in from the local ECF to the ER for increasing shortness of breath, decreased oral intake. Failure to thrive. Patient also tested positive for COVID. Denied any fever. Tired rundown. Patient is 97% on room air in the ER. 12/07/2020 Patient was admitted to the hospital due to fluid overload and Covid pneumonia. Patient is currently lying in the bed. Awake alert. Somewhat poor historian. Denied any complaints of chest pain. No complaints of worsening shortness of breath. Still having bilateral lower extremity leg swelling and both are Rey wrapped. Patient is being continued on Lasix drip due to fluid overload. Does have history of chronic kidney disease with monoclonal gammopathy. Laboratory data showed LDH 426, CRP 5.7 and procalcitonin level is 0.13. Patient is also on anticoagulation with Eliquis. 12/08/2020 Patient is currently lying in bed. Awake alert and slightly confused. Requiring oxygen at 2 L via nasal cannula. Denied any complaints of chest pain. Tolerating oral diet. No nausea vomiting abdominal pain or diarrhea. Laboratory data showed BUN 55 and creatinine 2.92 and blood sugar is 179 WBC 5.4 hemoglobin 9.4 and platelets 281 Lasix drip has been discontinued. Bilateral lower extremity swelling is improving.. Rey wrap. Nephrology and pulmonary is on board. 12/09/2020 Patient currently resting in the bed comfortably. Currently on 2 L oxygen via nasal cannula. Chest x-ray today showed scattered bilateral infiltrates persist greatest within the right upper lobe however there is a suggestion of interval improvement. Laboratory data showed BUN 65 and creatinine 3.14. Lasix drip has been dis continued. Patient was started LR at 75 cc/h. Leg swelling is much improved now. Patient is being continued multivitamins and on anticoagulation with Eliquis. Follow-up with renal function tomorrow. Active Medications Generic Name Dose Route Start Last Admin Trade Name Freq PRN Reason Stop Dose Admin Acetaminophen 650 mg 12/05/20 18:59 Acetaminophen Tab 325 Mg Tab PO Q4H PRN Pain Albuterol Sulfate 2 puff 12/05/20 20:00 12/09/20 20:34 Albuterol Hfa Inhaler INHALATION 2 puff Q4HR [facility] Administration Apixaban 2.5 mg 12/05/20 21:00 12/09/20 20:43 Apixaban 2.5 Mg Tablet PO 2.5 mg BID [facility] Administration Protocol Ascorbic Acid 500 mg 12/06/20 10:00 12/09/20 09:20 Ascorbic Acid 500 Mg Tab PO 500 mg DAILY [facility] Administration Aspirin 81 mg 12/07/20 09:00 12/09/20 09:20 Aspirin 81 Mg PO 81 mg DAILY [facility] Administration Atorvastatin Calcium 80 mg 12/05/20 21:00 12/09/20 20:43 Atorvastatin 80 Mg Tab PO 80 mg HS [facility] Administration Budesonide/Formoterol Fumarate 2 puff 12/06/20 20:00 12/09/20 20:34 Symbicort 160-4.5 Mcg Inhaler INHALATION 2 puff RT-BID [facility] Administration Carvedilol 3.125 mg 12/05/20 21:00 12/09/20 17:04 Carvedilol 3.125 Mg Tab PO 3.125 mg BID-W/MEALS [facility] Administration Cholecalciferol 10 mcg 12/06/20 10:00 12/09/20 09:21 Cholecalciferol 10 Mcg (400 Iu) Tablet PO 10 mcg DAILY [facility] Administration Lactated Ringer's 1,000 mls @ 75 mls/hr 12/09/20 12:45 12/09/20 14:13 Lactated Ringers IV 75 mls/hr .[id number] [facility] Administration Insulin Aspart 0 unit 12/06/20 17:30 12/09/20 20:39 Insulin Aspart (Novolog) 100 Unit/Ml Vial SQ Not Given ACHS [facility] Protocol Insulin Detemir 18 unit 12/07/20 07:00 12/09/20 06:32 Insulin Detemir (Levemir) 100 Unit/Ml Syr SQ 18 unit DAILY@0700 [facility] Administration Latanoprost 1 drops 12/05/20 21:00 12/09/20 20:44 Latanoprost 0.005% Ophth Drops 2.5 Ml Btl RIGHT EYE 1 drops HS [facility] Administration Pantoprazole Sodium 40 mg 12/06/20 07:30 12/09/20 09:20 Pantoprazole 40 Mg Tablet PO 40 mg [id number] [facility] Administration Ranolazine 1,000 mg 12/05/20 21:00 12/09/20 20:43 Ranolazine 500 Mg Tab.Er.12h PO 1,000 mg BID [facility] Administration Senna 8.6 mg 12/05/20 21:00 12/09/20 20:43 Sennosides 8.6 Mg Tab PO 8.6 mg BID [facility] Administration Sodium Bicarbonate 650 mg 12/07/20 13:00 12/09/20 20:44 Sodium Bicarbonate Tab 650 Mg Tab PO 650 mg QID [facility] Administration Tamsulosin HCl 0.4 mg 12/06/20 09:00 12/09/20 09:20 Tamsulosin 0.4 Mg Cap.Er.24h PO 0.4 mg DAILY [facility] Administration Zinc Sulfate 220 mg 12/06/20 10:00 12/09/20 09:19 Zinc Sulfate 220 Mg Cap PO 220 mg DAILY [facility] Administration Objective - Vital Signs Vital signs: Vital Signs Temp 98.4 F 12/09/20 19:44 Pulse 70 12/09/20 20:00 Resp 18 12/09/20 20:00 BP 117/58 12/09/20 19:44 Pulse Ox 95 12/09/20 19:46 Intake & Output 12/09/20 12/09/20 12/10/20 06:59 18:59 06:59 Intake Total 240 Balance 240 Weight 80.5 kg Intake: Oral 240 Other: Voiding Method Urinal Urinal Urinal Diaper Diaper Diaper Incontinent Incontinent Incontinent # Voids 3 - Exam GENERAL APPEARANCE: BMI 24.0, sitting at the edge of the bed, tired, awake HEENT: Normal external appearance of nose and ear. Oral cavity normal EYES: Pupils equal. Conjunctiva normal. NECK: JVD unable to assess Mass not palpable. RESPIRATORY: Respiratory effort increased Decreased breath sounds. Occasional crackles CARDIOVASCULAR: First and second sounds normal. Significant edema ABDOMEN: Soft. Liver and spleen not palpable. No tenderness. No mass palpable. PSYCHIATRY: Patient is able to answer simple questions. Mood and affect slightly low NEUROLOGICAL: Cranial nerves grossly intact. Moving all 4 limbs MUSCULAR skeletal: Evidence of OA. Dressing over the right verde LYMPHATICS: No lymph nodes palpable in neck and axilla - Labs CBC & Chem 7: 12/09/20 07:36 12/09/20 07:36 Labs: Abnormal Lab Results - Last 24 Hours (Table) 12/09/20 12/09/20 12/09/20 Range/Units 06:24 07:36 07:36 RBC 3.07 L (4.30-5.90) m/uL Hgb 9.4 L (13.0-17.5) gm/dL Hct 28.5 L (39.0-53.0) % Lymphocytes # 0.7 L (1.0-4.8) k/uL BUN 65 H (9-20) mg/dL Creatinine 3.14 H (0.66-1.25) mg/dL Glucose 154 H (74-99) mg/dL POC Glucose (mg/dL) 183 H (75-99) mg/dL 12/09/20 12/09/20 12/09/20 Range/Units 11:51 16:48 20:32 RBC (4.30-5.90) m/uL Hgb (13.0-17.5) gm/dL Hct (39.0-53.0) % Lymphocytes # (1.0-4.8) k/uL BUN (9-20) mg/dL Creatinine (0.66-1.25) mg/dL Glucose (74-99) mg/dL POC Glucose (mg/dL) 105 H 140 H 123 H (75-99) mg/dL Microbiology - Last 24 Hours (Table) 12/05/20 16:31 Blood Culture - Preliminary Blood No Growth after 96 hours 12/05/20 16:31 Blood Culture - Preliminary Blood No Growth after 96 hours Assessment and Plan Assessment: -Acute on chronic congestive heart failure exacerbation from systolic dysfunction EF 30-35% Breathing status and leg swelling is much improved. Lasix drip has been discontinued.. Strict I's and O's. Follow electrolytes. 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 base line cr 1.3 0ff Lasix drip. Follow renal function. nephrology is following. - autonomic dysfunction from diabetes Rey wraps -COVID 19 positive. Pulse ox 97% on room air. He has been put on oxygen empirically when necessary. Has no fever. Was started on Vitamin C, vitamin D, zinc supplemented. -Persistent atrial fibrillation. Paced rhythm. On eliquis - COPD in a current smoker, Ventolin HFA. Symbicort 1604.52 puffs twice a day. -Chronic nicotine dependence patient cigarette smoker Nicotine patch -Moderate cognitive impairment from late onset Alzheimer's dementia -Diabetes mellitus type 2, Levemir 18 units subcu daily. 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 Lasix. Follow electrolytes -Obstructive sleep apnea, unable to wear a mask -Peripheral arterial disease On aspirin, Lipitor -Permanent pacemaker with generator change in August 02-2020 Pacemaker check done recently -Chronic gait dysfunction, and a baseline patient uses a walker -Acute on chronic medical debility from underlying medical problems -DO NOT RESUSCITATE Time with Patient: Greater than 30
[2020-12-10] MEDS: ALBUTEROL HFA INHALER INHALATION SCH ×6 (00:05→19:50)
[2020-12-10] MEDS: LACTATED RINGERS 1,000 ML IV SCH ×2 (02:00→15:28)
[2020-12-10 05:48] LABS: Glucose,Whole Blood 156 mg/dL (75-99)
[2020-12-10] MEDS: INSULIN ASPART (NovoLOG) 100 UNIT/ML VIAL SQ SCH ×4 (06:01→21:30)
[2020-12-10] MEDS: INSULIN DETEMIR (LEVEMIR) 100 UNIT/ML SYR SQ SCH (06:31)
[2020-12-10] MEDS: carvediloL 3.125 MG TAB PO SCH ×2 (06:31→17:41)
[2020-12-10] MEDS: PANTOPRAZOLE 40 MG TABLET PO SCH (06:31)
[2020-12-10] MEDS: SYMBICORT 160-4.5 MCG INHALER INHALATION SCH ×2 (07:28→19:50)
[2020-12-10 09:14] LABS: Basophils % (A) 0 %; Eosinophils % (A) 0 %; HCT 31.8 % (39.0-53.0); HGB 10.1 gm/dL (13.0-17.5); Lymphocytes # (A) 0.8 k/uL (1.0-4.8); Lymphocytes % (A) 15 %; MCHC 31.8 g/dL (31.0-37.0); MCV 94.3 fL (80.0-100.0); Mean Platelet Volume 6.8; Monocytes # (A) 0.2 k/uL (0-1.0); Monocytes % (A) 4 %; Neutrophils # (A) 4.5 k/uL (1.3-7.7); Neutrophils % (A) 79 %; Platelet Count 309 k/uL (150-450); RBC 3.37 m/uL (4.30-5.90); RDW 15.2 % (11.5-15.5); WBC 5.7 k/uL (3.8-10.6)
[2020-12-10 09:23] LABS: Calcium 8.8 mg/dL (8.4-10.2); Potassium 4.3 mmol/L (3.5-5.1)
[2020-12-10] MEDS: SENNOSIDES 8.6 MG TAB PO SCH ×2 (09:39→21:49)
[2020-12-10] MEDS: RANOLAZINE 500 MG TAB.ER.12H PO SCH ×2 (09:39→21:49)
[2020-12-10] MEDS: CHOLECALCIFEROL 10 MCG (400 IU) TABLET PO SCH (09:39)
[2020-12-10] MEDS: ASPIRIN 81 MG PO SCH (09:39)
[2020-12-10] MEDS: ZINC SULFATE 220 MG CAP PO SCH (09:39)
[2020-12-10] MEDS: TAMSULOSIN 0.4 MG CAP.ER.24H PO SCH (09:39)
[2020-12-10] MEDS: APIXABAN 2.5 MG TABLET PO SCH ×2 (09:39→21:49)
[2020-12-10] MEDS: ASCORBIC ACID 500 MG TAB PO SCH (09:39)
[2020-12-10] MEDS: SODIUM BICARBONATE TAB 650 MG TAB PO SCH ×2 (09:39→21:49)
[2020-12-10 11:53] LABS: Glucose,Whole Blood 234 mg/dL (75-99)
--- NOTE | 2020-12-10 14:19 | PN ---
PROGRESS NOTE Patient is seen for followup for acute kidney injury on top of chronic kidney disease. He is currently being treated for COVID pneumonia. Patient is currently maintained on Ringer lactate at 75 mL an hour. He is also on oral sodium bicarb for metabolic acidosis serum. Serum creatinine has been about the same for the last couple of days staying at about 3.1-3.0 mg/dL. The patient is currently incontinent. EXAMINATION: Today blood pressure 117/57, heart rate 71 per minute, he is afebrile. [employer] exam grossly intact. Patient is sitting up in a bedside chair. No significant edema of the lower extremities noted. LABS: Show sodium 141, potassium 4.3, chloride 105, BUN 65, creatinine 3.01, hemoglobin 10.1 g/dL. ASSESSMENT: 1. Acute kidney injury associated with COVID infection and hypotension. 2. 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 Proteinuria 2.5 g as of 10/03/2019. Serum creatinine as low as 1.97 in August of 2020. With an episode of acute kidney injury in 2018 creatinine was 6.8 blood test at that time. 3. COVID-19 pneumonia. 4. Anemia of chronic disease. 5. Metabolic acidosis, improved with sodium bicarb. 6. Mild dementia. PLAN: Decrease sodium bicarb. Check postvoid residual. Continue to encourage increased oral intake. Repeat labs in a.m. May continue with the Ringer lactate for now. MMODL / IJN: [id number] /
[2020-12-10] MEDS: guaiFENesin 600 MG TABLET.ER PO SCH ×3 (14:40→21:55)
[2020-12-10 14:47] VITALS: BMI 26.2
--- NOTE | 2020-12-10 16:55 | P.PN ---
Subjective Progress Note Date: 12/10/20 Principal diagnosis: Shortness of breath On 12/10/2020 patient seen in follow-up on skilled care unit, he was diagnosed with COVID-19 pneumonia, he was out of the window for Remdesivir, his BNP was also elevated on admission at 12,100 suggesting possibility of acute exacerbatio n of CHF. His echocardiogram showed moderately severe impairment LV ejection fraction of 30-35%, no pericardial effusion. Patient is currently breathing comfortably, he is on 2 L of oxygen and the pulse ox of 96%. His last chest x- ray yesterday showed scattered bilateral infiltrates greatest within the right upper lobe however there was interval improvement. Patient is breathing comfortably, he is currently not on any steroids, renal function is relatively stable today, his creatinine is 3.01, down slightly from 3.14 on yesterday's labs, BUN is 65 which is the same as yesterday, electrolytes are within normal limits. His white count was 5.7, hemoglobin is 10.1, his lymphocyte count is 0 .8, d-dimer was 0.40 a few days ago, patient is on Eliquis on a chronic basis or history of atrial fibrillation. Vital signs have been stable, his been afebrile. Objective - Vital Signs Vital signs: Vital Signs Temp 98.0 F 12/10/20 15:56 Pulse 70 12/10/20 15:56 Resp 18 12/10/20 15:56 BP 126/62 12/10/20 15:56 Pulse Ox 96 12/10/20 15:56 Intake & Output 12/09/20 12/10/20 12/10/20 18:59 06:59 18:59 Intake Total 240 Balance 240 Weight 83 kg 83 kg Intake: Oral 240 Other: Voiding Method Urinal Urinal Urinal Diaper Diaper Diaper Incontinent Incontinent Incontinent # Voids 3 3 # Bowel Movements 3 - Exam GENERAL EXAM: Alert, very pleasant, 75-year-old white male, on 2 L of oxygen pulse ox of 96%, sitting up in the recliner, in no acute distress comfortable in no apparent distress. HEAD: Normocephalic/atraumatic. EYES: Normal reaction of pupils, equal size. Conjunctiva pink, sclera white. NOSE: Clear with pink turbinates. THROAT: No erythema or exudates. NECK: No masses, no JVD, no thyroid enlargement, no adenopathy. CHEST: No chest wall deformity. Symmetrical expansion. LUNGS: Equal air entry with no crackles, wheeze, rhonchi or dullness. CVS: Regular rate and rhythm, normal S1 and S2, no gallops, no murmurs, no rubs ABDOMEN: Soft, nontender. No hepatosplenomegaly, normal bowel sounds, no guarding or rigidity. EXTREMITIES: No clubbing, no edema, no cyanosis, 2+ pulses and upper and lower extremities. MUSCULOSKELETAL: Muscle strength and tone normal. SPINE: No scoliosis or deformity SKIN: No rashes CENTRAL NERVOUS SYSTEM: Alert and oriented -3. No focal deficits, tone is normal in all 4 extremities. PSYCHIATRIC: Alert and oriented -3. Appropriate affect. Intact judgment and insight. - Labs CBC & Chem 7: 12/10/20 08:32 12/10/20 08:32 Labs: Abnormal Lab Results - Last 24 Hours (Table) 12/09/20 12/09/20 12/10/20 Range/Units 16:48 20:32 05:47 RBC (4.30-5.90) m/uL Hgb (13.0-17.5) gm/dL Hct (39.0-53.0) % Lymphocytes # (1.0-4.8) k/uL BUN (9-20) mg/dL Creatinine (0.66-1.25) mg/dL Glucose (74-99) mg/dL POC Glucose (mg/dL) 140 H 123 H 156 H (75-99) mg/dL 12/10/20 12/10/20 12/10/20 Range/Units 08:32 08:32 11:42 RBC 3.37 L (4.30-5.90) m/uL Hgb 10.1 L (13.0-17.5) gm/dL Hct 31.8 L (39.0-53.0) % Lymphocytes # 0.8 L (1.0-4.8) k/uL BUN 65 H (9-20) mg/dL Creatinine 3.01 H (0.66-1.25) mg/dL Glucose 182 H (74-99) mg/dL POC Glucose (mg/dL) 234 H (75-99) mg/dL Microbiology - Last 24 Hours (Table) 12/05/20 16:31 Blood Culture - Preliminary Blood No Growth after 96 hours 12/05/20 16:31 Blood Culture - Preliminary Blood No Growth after 96 hours Assessment and Plan Plan: Assessment: #1. Acute hypoxic respiratory failure multifactorial, related to acute exacerbation of systolic CHF, and COVID-19 infection. There was outside the window for Remdesivir, he was treated with conservatively #2. History of chronic atrial fibrillation, status post pacemaker insertion, on Eliquis #3. Acute kidney injury, diuretics and currently on hold #4. History of systolic CHF, with EF of 30-35% #5. History of COPD #6. History of CVA/TIA #7. History of dementia #8. History of diabetes mellitus #9. History of GERD/reflux #10. Hypertension #11. Hyperlipidemia #12. Prior history of myocardial infarction #13. History of sleep apnea syndrome #14. History of stage III chronic kidney disease Plan: Patient is not on any Decadron right now His oxygenation is stable on 2 L of oxygen We'll continue weaning FiO2 Stable from pulmonary perspective Today's chest x-ray has been reviewed Today's labs have been noted Patient can be considered for discharge back to [facility] when cleared by medicine I performed a history & physical examination of the patient and discussed their management with my nurse practitioner, Danyelle Kim. I reviewed the nurse practitioner's note and agree with the documented findings and plan of care. Lung sounds are positive for diminished breath sounds throughout the lung dia. The findings and the impression was discussed with the patient. I attest to the documentation by the nurse practitioner. Time with Patient: Less than 30
[2020-12-10 17:02] LABS: Glucose,Whole Blood 156 mg/dL (75-99)
--- NOTE | 2020-12-10 17:39 | P.PN ---
Progress Note - Text Progress Note Date: 12/10/20 Chief Complaint: Shortness of breath History of presenting complaint: This is a 75-year-old male with complex past medical history noted below significant for prior stroke and underlying dementia. Chronic stable medical conditions include atrial fibrillation, autonomic dysfunction from diabetes, pacemaker COPD, moderate cognitive impairment, diabetes, GERD, hyperlipidemia, hypertension, chronic kidney disease. Patient was sent in from the local ECF to the ER for increasing shortness of breath, decreased oral intake. Failure to thrive. Patient also tested positive for COVID. Denied any fever. Tired rundown. Patient is 97% on room air in the ER. Admitted with CHF exacerbation put on IV Lasix. COVID 19. Patient then became prerenal was given IV fluids. 12/10/2020: Sitting up in a chair. Oral intake fair. congested cough. Tired. Been given IV fluids at 75 mL an hour by nephrology Review of systems: Was done for constitutional, cardiovascular, GI, pulmonary. relevant finding as above Active Medications Acetaminophen (Acetaminophen Tab 325 Mg Tab) 650 mg PO Q4H PRN PRN Reason: Pain Albuterol Sulfate (Albuterol Hfa Inhaler) 2 puff INHALATION Q4HR [facility] Last Admin: 12/10/20 15:29 Dose: 2 puff Documented by: Apixaban (Apixaban 2.5 Mg Tablet) 2.5 mg PO BID [facility]; Protocol Last Admin: 12/10/20 09:39 Dose: 2.5 mg Documented by: Ascorbic Acid (Ascorbic Acid 500 Mg Tab) 500 mg PO DAILY [facility] Last Admin: 12/10/20 09:39 Dose: 500 mg Documented by: Aspirin (Aspirin 81 Mg) 81 mg PO DAILY [facility] Last Admin: 12/10/20 09:39 Dose: 81 mg Documented by: Atorvastatin Calcium (Atorvastatin 80 Mg Tab) 80 mg PO HS [facility] Last Admin: 12/09/20 20:43 Dose: 80 mg Documented by: Budesonide/Formoterol Fumarate (Symbicort 160-4.5 Mcg Inhaler) 2 puff INHALATION RT-BID [facility] Last Admin: 12/10/20 07:28 Dose: 2 puff Documented by: Carvedilol (Carvedilol 3.125 Mg Tab) 3.125 mg PO BID-W/MEALS [facility] Last Admin: 12/10/20 06:31 Dose: 3.125 mg Documented by: Cholecalciferol (Cholecalciferol 10 Mcg (400 Iu) Tablet) 10 mcg PO DAILY [facility] Last Admin: 12/10/20 09:39 Dose: 10 mcg Documented by: Guaifenesin (Guaifenesin 600 Mg Tablet.Er) 600 mg PO QID [facility] Last Admin: 12/10/20 14:40 Dose: 600 mg Documented by: Lactated Ringer's (Lactated Ringers) 1,000 mls @ 75 mls/hr IV .[id number] [facility] Last Admin: 12/10/20 15:28 Dose: Not Given Documented by: Insulin Aspart (Insulin Aspart (Novolog) 100 Unit/Ml Vial) 0 unit SQ ACHS [facility]; Protocol Last Admin: 12/10/20 12:22 Dose: 3 unit Documented by: Insulin Detemir (Insulin Detemir (Levemir) 100 Unit/Ml Syr) 18 unit SQ DAILY@0700 [facility] Last Admin: 12/10/20 06:31 Dose: 18 unit Documented by: Latanoprost (Latanoprost 0.005% Ophth Drops 2.5 Ml Btl) 1 drops RIGHT EYE HS [facility] Last Admin: 12/09/20 20:44 Dose: 1 drops Documented by: Pantoprazole Sodium (Pantoprazole 40 Mg Tablet) 40 mg PO AC-BRKFST [facility] Last Admin: 12/10/20 06:31 Dose: 40 mg Documented by: Ranolazine (Ranolazine 500 Mg Tab.Er.12h) 1,000 mg PO BID [facility] Last Admin: 12/10/20 09:39 Dose: 1,000 mg Documented by: Senna (Sennosides 8.6 Mg Tab) 8.6 mg PO BID [facility] Last Admin: 12/10/20 09:39 Dose: 8.6 mg Documented by: Sodium Bicarbonate (Sodium Bicarbonate Tab 650 Mg Tab) 650 mg PO BID [facility] Tamsulosin HCl (Tamsulosin 0.4 Mg Cap.Er.24h) 0.4 mg PO DAILY [facility] Last Admin: 12/10/20 09:39 Dose: 0.4 mg Documented by: Zinc Sulfate (Zinc Sulfate 220 Mg Cap) 220 mg PO DAILY [facility] Last Admin: 12/10/20 09:39 Dose: 220 mg Documented by: Past medical history to include: Stroke, dementia, atrial fibrillation, COPD, moderate cognitive impairment, diabetes, GERD, hyperlipidemia, hypertension, chronic kidney disease, gait dysfunction uses a walker, pacemaker Social history: . ECF. Walker, and a Wheelchair. Patient been smoking for over 60 years. Down to a pack a day from 2 packs a day. Family history: Cancer On examination: VITAL SIGNS: 98, 70, 18, 1 26 x 62, 96% on 2 L GENERAL APPEARANCE: Sitting up in a chair, eating EYES: Pupils equal. Conjunctiva normal. NECK: JVD unable to assess Mass not palpable. RESPIRATORY: Respiratory effort increased Decreased breath sounds. Occasional crackles CARDIOVASCULAR: First and second sounds normal. Significant edema ABDOMEN: Soft. Liver and spleen not palpable. No tenderness. No mass palpable. PSYCHIATRY: Patient is able to answer simple questions. Mood and affect normal MUSCULAR skeletal: Evidence of OA. Dressing over the right verde INVESTIGATIONS, reviewed in the clinical context: 12/10/2020: White count 5.7 hemoglobin 10.1 platelets 309 potassium 4.3 BUN 65 creatinine 3.01 White count 6.1 hemoglobin 10.1 platelets 308 sodium 138 potassium 5.2. 50 creatinine 2.42 Troponin I 0.037, 0.047, 0.055 ProBNP 9810 Influenza type a, b, RSV: Not detected SARS-CoV-2 : [PCR]: Detected EKG tracing personally reviewed by me-paced rhythm. Left bundle branch block pattern. Atrophic ablation. Crit 31 Chest x-ray film personally reviewed by me-cardiomegaly, significant pulmonary edema, pacemaker Previous testin-D echocardiogram [August 2020]: Multiple wall motion abnormality. EF 30-35% 08/30/2020: BUN 43 creatinine 2.07 Assessment and plan: -Acute on chronic congestive heart failure exacerbation from systolic dysfunction EF 30-35%. Improved Status post Lasix drip . -Acute kidney injury, likely ATN from cardiorenal syndrome Currently patient is on IV fluids being followed by nephrology - autonomic dysfunction from diabetes Rey wraps -COVID 19 positive. Pulse ox 97% on room air on presentation. Vitamin C, vitamin D, zinc supplemented. -Persistent atrial fibrillation Paced rhythm. On eliquis - COPD in a current smoker, Ventolin HFA. Symbicort 160/4.5; 2 puffs twice a day. -Chronic nicotine dependence patient cigarette smoker Nicotine patch -Moderate cognitive impairment from late onset Alzheimer's dementia -Diabetes mellitus type 2, uncontrolled with hyperglycemia Levemir 24 units subcu daily. 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 Lasix. Follow electrolytes -Obstructive sleep apnea, unable to wear a mask -Peripheral arterial disease On aspirin, Lipitor -Permanent pacemaker with generator change in August 02-2020 Pacemaker check done recently -Chronic gait dysfunction, and a baseline patient uses a walker -Acute on chronic medical debility from underlying medical problems -DO NOT RESUSCITATE Getting IV fluids 75 mL an hour. Has basal crackles. Add Mucinex. Repeat BMP in the morning. Increase Levemir to 24 units in the morning.
--- NOTE | 2020-12-10 18:38 | PN ---
PROGRESS NOTE DATE OF SERVICE: 12/10/2020 REASON FOR FOLLOWUP: COVID pneumonia. INTERVAL HISTORY: Patient is currently afebrile. The patient is complaining of some shortness of breath today. The patient denies having any chest pain. He did have a cough but not bringing up any sputum. No vomiting. No abdominal pain or diarrhea. PHYSICAL EXAMINATION: Blood pressure 126/52 with a pulse of 70, temperature 98. He is 96% on 2 L nasal cannula. GENERAL DESCRIPTION: General description is an elderly male up in the bed in no distress. RESPIRATORY SYSTEM: Unlabored breathing. Decreased intensity of breath sounds. No wheeze. HEART: S1, S2. Regular rate and rhythm. ABDOMEN: Soft. No tenderness. LABS: Hemoglobin is 10.1, white count of 5.7, BUN of 65, creatinine 3.01. Blood culture has been negative. DIAGNOSTIC IMPRESSION AND PLAN: Patient with admission to hospital with shortness of breath and mental status changes which are multifactorial, possible congestive heart failure exacerbation. Possibly a component of COVID infection, being treated with supportive care, on Eliquis, zinc. Slowly wean off his oxygen. However, if hypoxemia persists he may benefit from dexamethasone. Continue supportive care. MMODL / IJN: [id number] / MOY
[2020-12-10 19:46] LABS: Glucose,Whole Blood 122 mg/dL (75-99)
[2020-12-10] MEDS: ATORVASTATIN 80 MG TAB PO SCH (21:49)
[2020-12-11] MEDS: ALBUTEROL HFA INHALER INHALATION SCH ×4 (00:11→11:56)
[2020-12-11] MEDS: LATANOPROST 0.005% OPHTH DROPS 2.5 ML BTL RIGHT EYE SCH (06:07)
[2020-12-11 06:23] LABS: Glucose,Whole Blood 119 mg/dL (75-99)
[2020-12-11] MEDS ORDERED: INSULIN DETEMIR (LEVEMIR) 100 UNIT/ML SYR SQ SCH (07:00)
[2020-12-11] MEDS: INSULIN ASPART (NovoLOG) 100 UNIT/ML VIAL SQ SCH ×2 (07:18→12:25)
[2020-12-11] MEDS: SYMBICORT 160-4.5 MCG INHALER INHALATION SCH (08:30)
[2020-12-11] MEDS: LACTATED RINGERS 1,000 ML IV SCH (08:35)
[2020-12-11 08:59] VITALS: BP 121/56; PULSE 70; RESP 18; TEMP 97.7
[2020-12-11] MEDS: SENNOSIDES 8.6 MG TAB PO SCH (09:03)
[2020-12-11] MEDS: ZINC SULFATE 220 MG CAP PO SCH (09:03)
[2020-12-11] MEDS: ASPIRIN 81 MG PO SCH (09:03)
[2020-12-11] MEDS: carvediloL 3.125 MG TAB PO SCH (09:03)
[2020-12-11] MEDS: APIXABAN 2.5 MG TABLET PO SCH (09:03)
[2020-12-11] MEDS: RANOLAZINE 500 MG TAB.ER.12H PO SCH (09:03)
[2020-12-11] MEDS: ASCORBIC ACID 500 MG TAB PO SCH (09:03)
[2020-12-11] MEDS: CHOLECALCIFEROL 10 MCG (400 IU) TABLET PO SCH (09:03)
[2020-12-11] MEDS: SODIUM BICARBONATE TAB 650 MG TAB PO SCH (09:04)
[2020-12-11] MEDS: TAMSULOSIN 0.4 MG CAP.ER.24H PO SCH (09:04)
[2020-12-11] MEDS: PANTOPRAZOLE 40 MG TABLET PO SCH (09:08)
[2020-12-11] MEDS: guaiFENesin 600 MG TABLET.ER PO SCH (09:08)
[2020-12-11 09:11] LABS: Glucose,Whole Blood 120 mg/dL (75-99)
--- NOTE | 2020-12-11 10:52 | P.PN ---
Subjective Progress Note Date: 12/11/20 Principal diagnosis: Shortness of breath On 12/10/2020 patient seen in follow-up on skilled care unit, he was diagnosed with COVID-19 pneumonia, he was out of the window for Remdesivir, his BNP was also elevated on admission at 12,100 suggesting possibility of acute exacerbatio n of CHF. His echocardiogram showed moderately severe impairment LV ejection fraction of 30-35%, no pericardial effusion. Patient is currently breathing comfortably, he is on 2 L of oxygen and the pulse ox of 96%. His last chest x- ray yesterday showed scattered bilateral infiltrates greatest within the right upper lobe however there was interval improvement. Patient is breathing comfortably, he is currently not on any steroids, renal function is relatively stable today, his creatinine is 3.01, down slightly from 3.14 on yesterday's labs, BUN is 65 which is the same as yesterday, electrolytes are within normal limits. His white count was 5.7, hemoglobin is 10.1, his lymphocyte count is 0 .8, d-dimer was 0.40 a few days ago, patient is on Eliquis on a chronic basis or history of atrial fibrillation. Vital signs have been stable, his been afebrile. On today's evaluation on 12/11/2020 patient seen in follow-up on selective care unit, he is resting comfortably in bed, in no acute distress, he denies any difficulty breathing, occasional nonproductive cough, complaints of chest discom fort, he is currently on 2 L of oxygen a pulse ox of 93-98%, vital signs have stable overnight, no fever or chills. Patient is incontinent of urine, he states he has no difficulty passing urine, his appetite is fair, he is considering his supplemental Ensures. Patient is on lactated Ringer's at a rate of 75 ML per hour, his repeat BMP is pending for today. Last chest x-ray was on 12/09/2020 showing scattered bilateral infiltrates greater in the right upper lobe however it was improving compared the previous study. Continues on maintenance dose Eliquis 2.5 milligrams twice a day, he is currently off the Decadron. No acute events overnight. Objective - Vital Signs Vital signs: Vital Signs Temp 97.7 F 12/11/20 08:00 Pulse 70 12/11/20 08:00 Resp 18 12/11/20 08:00 BP 121/56 12/11/20 08:00 Pulse Ox 93 L 12/11/20 08:30 Intake & Output 12/10/20 12/11/20 12/11/20 18:59 06:59 18:59 Weight 83 kg 70.5 kg Other: Voiding Method Urinal Urinal Diaper Diaper Incontinent Incontinent # Voids 1 # Bowel Movements 1 - Exam GENERAL EXAM: Alert, very pleasant, 75-year-old white male, on 2 L of oxygen pulse ox of 96%, sitting up in the recliner, in no acute distress comfortable in no apparent distress. HEAD: Normocephalic/atraumatic. EYES: Normal reaction of pupils, equal size. Conjunctiva pink, sclera white. NOSE: Clear with pink turbinates. THROAT: No erythema or exudates. NECK: No masses, no JVD, no thyroid enlargement, no adenopathy. CHEST: No chest wall deformity. Symmetrical expansion. LUNGS: Equal air entry with no crackles, wheeze, rhonchi or dullness. CVS: Regular rate and rhythm, normal S1 and S2, no gallops, no murmurs, no rubs ABDOMEN: Soft, nontender. No hepatosplenomegaly, normal bowel sounds, no guarding or rigidity. EXTREMITIES: No clubbing, no edema, no cyanosis, 2+ pulses and upper and lower extremities. MUSCULOSKELETAL: Muscle strength and tone normal. SPINE: No scoliosis or deformity SKIN: No rashes CENTRAL NERVOUS SYSTEM: Alert and oriented -3. No focal deficits, tone is normal in all 4 extremities. PSYCHIATRIC: Alert and oriented -3. Appropriate affect. Intact judgment and insight. - Labs CBC & Chem 7: 12/10/20 08:32 12/10/20 08:32 Labs: Abnormal Lab Results - Last 24 Hours (Table) 12/10/20 12/10/20 12/10/20 Range/Units 11:42 17:00 19:45 POC Glucose (mg/dL) 234 H 156 H 122 H (75-99) mg/dL 12/11/20 12/11/20 Range/Units 06:21 09:01 POC Glucose (mg/dL) 119 H 120 H (75-99) mg/dL Microbiology - Last 24 Hours (Table) 12/05/20 16:31 Blood Culture - Preliminary Blood No Growth after 120 hours 12/05/20 16:31 Blood Culture - Preliminary Blood No Growth after 120 hours Assessment and Plan Plan: Assessment: #1. Acute hypoxic respiratory failure multifactorial, related to acute exacerbation of systolic CHF, and COVID-19 infection. There was outside the window for Remdesivir, he was treated with conservatively #2. History of chronic atrial fibrillation, status post pacemaker insertion, on Eliquis #3. Acute kidney injury, diuretics and currently on hold #4. History of systolic CHF, with EF of 30-35% #5. History of COPD #6. History of CVA/TIA #7. History of dementia #8. History of diabetes mellitus #9. History of GERD/reflux #10. Hypertension #11. Hyperlipidemia #12. Prior history of myocardial infarction #13. History of sleep apnea syndrome #14. History of stage III chronic kidney disease Plan: No acute events overnight, no fever or chills, Remains on 2 L of oxygen, no worsening dyspnea or hypoxia Patient is not on any Decadron right now His oxygenation is stable on 2 L of oxygen Today's labs are pending Continue oral anticoagulation Patient can be considered for discharge back to [facility] when cleared by medicine I performed a history & physical examination of the patient and discussed their management with my nurse practitioner, Danyelle Kim. I reviewed the nurse practitioner's note and agree with the documented findings and plan of care. Lung sounds are positive for diminished breath sounds throughout the lung dia. The findings and the impression was discussed with the patient. I attest to the documentation by the nurse practitioner. Time with Patient: Less than 30
[2020-12-11 11:19] LABS: Calcium 8.6 mg/dL (8.4-10.2); Potassium 4.2 mmol/L (3.5-5.1)
[2020-12-11 12:13] LABS: Glucose,Whole Blood 114 mg/dL (75-99)
--- NOTE | 2020-12-11 13:38 | P.DS ---
Providers Date of admission: 12/05/20 19:13 Expected date of discharge: 12/11/20 Attending physician: Isaías Lord Consults: 12/05/20 19:12 Consult Physician Routine Consulting Provider: Oscar Newman Consult Reason/Comments: CHF, elevated troponin Do you want consulting provider notified?: Yes Consult Physician Routine Consulting Provider: Richard Jung Consult Reason/Comments: Covid 19, CHF Do you want consulting provider notified?: Yes Consult Physician Routine Consulting Provider: Xochitl Rosas Consult Reason/Comments: Covid 19 Do you want consulting provider notified?: Yes 12/06/20 15:07 Consult Physician Routine Consulting Provider: Raphael Langston Consult Reason/Comments: CK D Do you want consulting provider notified?: Yes Primary care physician: [facility] Course: Chief Complaint: Shortness of breath History of presenting complaint: This is a 75-year-old male with complex past medical history noted below significant for prior stroke and underlying dementia. Chronic stable medical conditions include atrial fibrillation, autonomic dysfunction from diabetes, pacemaker COPD, moderate cognitive impairment, diabetes, GERD, hyperlipidemia, hypertension, chronic kidney disease. Patient was sent in from the local ECF to the ER for increasing shortness of breath, decreased oral intake. Failure to thrive. Patient also tested positive for COVID. Denied any fever. Tired rundown. Patient is 97% on room air in the ER. Admitted with CHF exacerbation put on IV Lasix. COVID 19. Patient then became prerenal was given IV fluids. 12/10/2020: Sitting up in a chair. Oral intake fair. congested cough. Tired. Been given IV fluids at 75 mL an hour by nephrology 12/11/2020: Sitting up in a chair. Tired. IV fluids discontinued. On nasal cannula. Patient cleared by pulmonary and nephrology for discharge. Prognosis guarded. Add Lasix 40 mg daily and Aldactone 25 mg daily Discussion and discharge planning more than 35 minutes Past medical history to include: Stroke, dementia, atrial fibrillation, COPD, moderate cognitive impairment, diabetes, GERD, hyperlipidemia, hypertension, chronic kidney disease, gait dysfunction uses a walker, pacemaker Social history: . ECF. Walker, and a Wheelchair. Patient been smoking for over 60 years. Down to a pack a day from 2 packs a day. Family history: Cancer On examination: VITAL SIGNS: 97.7, 70, 18, 1 21 x 56, 98% on 2 L GENERAL APPEARANCE: Sitting up in a chair, tired EYES: Pupils equal. Conjunctiva normal. NECK: JVD unable to assess Mass not palpable. RESPIRATORY: Respiratory effort increased Decreased breath sounds. Occasional crackles CARDIOVASCULAR: First and second sounds normal. Significant edema ABDOMEN: Soft. Liver and spleen not palpable. No tenderness. No mass palpable. PSYCHIATRY: Patient is able to answer simple questions. Mood and affect normal MUSCULAR skeletal: Evidence of OA. Dressing over the right verde INVESTIGATIONS, reviewed in the clinical context: December 11: Potassium 4.2 BUN 32 creatinine 3.03 12/10/2020: White count 5.7 hemoglobin 10.1 platelets 309 potassium 4.3 BUN 65 creatinine 3.01 White count 6.1 hemoglobin 10.1 platelets 308 sodium 138 potassium 5.2. 50 creatinine 2.42 Troponin I 0.037, 0.047, 0.055 ProBNP 9810 Influenza type a, b, RSV: Not detected SARS-CoV-2 : [PCR]: Detected EKG tracing personally reviewed by me-paced rhythm. Left bundle branch block pattern. Atrophic ablation. Crit 31 Chest x-ray film personally reviewed by me-cardiomegaly, significant pulmonary edema, pacemaker Previous testin-D echocardiogram [August 2020]: Multiple wall motion abnormality. EF 30-35% 08/30/2020: BUN 43 creatinine 2.07 Assessment and plan: -Acute on chronic congestive heart failure exacerbation from systolic dysfunction EF 30-35%. Improved Status post Lasix drip . By mouth Lasix 40 mg daily, Aldactone 25 mg daily -Acute kidney injury, likely ATN from cardiorenal syndrome followed by nephrology - autonomic dysfunction from diabetes Rey wraps -COVID 19 positive. Pulse ox 97% on room air on presentation. Vitamin C, vitamin D, zinc supplemented. -Persistent atrial fibrillation Paced rhythm. On eliquis - COPD in a current smoker, Ventolin HFA. Symbicort 160/4.5; 2 puffs twice a day. -Chronic nicotine dependence patient cigarette smoker Nicotine patch -Moderate cognitive impairment from late onset Alzheimer's dementia -Diabetes mellitus type 2, uncontrolled with hyperglycemia Levemir 24 units subcu daily. 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 Lasix. Follow electrolytes -Obstructive sleep apnea, unable to wear a mask -Peripheral arterial disease On aspirin, Lipitor -Permanent pacemaker with generator change in August 02-2020 Pacemaker check done recently -Chronic gait dysfunction, and a baseline patient uses a walker -Acute on chronic medical debility from underlying medical problems -DO NOT RESUSCITATE Disposition: [facility] Plan - Discharge Summary Discharge Rx Participant: No New Discharge Prescriptions: New Budesonide-Formot 160-4.5 Mcg [Symbicort 160-4.5 Mcg Inhaler] 2 puff INHALATION RT-BID Cholecalciferol [Vitamin D3 (10 Mcg = 400 Iu)] 10 mcg PO DAILY tablet guaiFENesin [Mucinex] 600 mg PO QID tablet Zinc Sulfate [Orazinc] 220 mg PO DAILY cap Albuterol Inhaler [Ventolin Hfa Inhaler] 2 puff INHALATION Q4HR gm Ascorbic Acid [Vitamin C] 500 mg PO DAILY tab Continue INSULIN ASPART (NovoLOG) [NovoLOG (formulary)] See Protocol SQ AC-TID Apixaban [Eliquis] 2.5 mg PO BID #60 tablet Carvedilol [Coreg] 3.125 mg PO BID Atorvastatin Calcium [Lipitor] 80 mg PO HS Ranolazine [Ranolazine ER] 1,000 mg PO BID Aspirin EC [Ecotrin Low Dose] 81 mg PO DAILY Sennosides [Senna] 8.6 mg PO BID Tamsulosin HCl [Flomax] 0.4 mg PO DAILY Latanoprost/Pf [Latanoprost 0.005% Eye Drop] 1 drop RIGHT EYE HS Acetaminophen [Tylenol] 650 mg PO Q4H PRN PRN Reason: Pain Insulin Glargine,Hum.rec.anlog [Lantus Solostar Pen] 25 unit SQ DAILY Omeprazole 40 mg PO DAILY Discharge Medication List INSULIN ASPART (NovoLOG) [NovoLOG (formulary)] See Protocol SQ AC-TID 01/16/18 [History] Apixaban [Eliquis] 2.5 mg PO BID #60 tablet 01/11/19 [Rx] Atorvastatin Calcium [Lipitor] 80 mg PO HS 06/16/20 [History] Carvedilol [Coreg] 3.125 mg PO BID 06/16/20 [History] Ranolazine [Ranolazine ER] 1,000 mg PO BID 06/16/20 [History] Aspirin EC [Ecotrin Low Dose] 81 mg PO DAILY 08/14/20 [History] Sennosides [Senna] 8.6 mg PO BID 08/14/20 [History] Latanoprost/Pf [Latanoprost 0.005% Eye Drop] 1 drop RIGHT EYE HS 08/25/20 [History] Omeprazole 40 mg PO DAILY 08/25/20 [History] Tamsulosin HCl [Flomax] 0.4 mg PO DAILY 08/25/20 [History] Acetaminophen [Tylenol] 650 mg PO Q4H PRN 12/05/20 [History] Insulin Glargine,Hum.rec.anlog [Lantus Solostar Pen] 25 unit SQ DAILY 12/05/20 [History] Albuterol Inhaler [Ventolin Hfa Inhaler] 2 puff INHALATION Q4HR gm 12/11/20 [Rx] Ascorbic Acid [Vitamin C] 500 mg PO DAILY tab 12/11/20 [Rx] Budesonide-Formot 160-4.5 Mcg [Symbicort 160-4.5 Mcg Inhaler] 2 puff INHALATION RT-BID 12/11/20 [Rx] Cholecalciferol [Vitamin D3 (10 Mcg = 400 Iu)] 10 mcg PO DAILY tablet 12/11/20 [Rx] Zinc Sulfate [Orazinc] 220 mg PO DAILY cap 12/11/20 [Rx] guaiFENesin [Mucinex] 600 mg PO QID tablet 12/11/20 [Rx] Follow up Appointment(s)/Referral(s): Marlene Garrido MD [STAFF PHYSICIAN] - 2 Weeks Phillip Martinez MD [STAFF PHYSICIAN] - 1 Week Tha Baeza MD [Primary Care Provider] - 1-2 days Richard Jung DO [Doctor of Osteopathic Medicine] - 3 Weeks
--- NOTE | 2020-12-11 13:51 | PN ---
PROGRESS NOTE Patient is seen for followup for acute kidney injury on top of chronic kidney disease. He is currently being treated for COVID pneumonia. He is fairly stable, sitting up in a bedside chair. Patient has not been eating much. He is maintained on 2 L nasal cannula. Renal function has been fairly stable, with serum creatinine staying at about 3.0 mg/dL. On examination today, blood pressure was 121/56, heart rate 70 per minute. He is afebrile. Examination of lower extremities shows no evidence of edema. Abdomen is soft, nontender. [employer] examination: Grossly intact. LABS: Sodium 144, potassium 4.2, chloride 108, BUN 72, creatinine 3.02. ASSESSMENT: 1. Acute kidney injury associated with underlying COVID infection, renal function fairly stable. The patient is off of IV fluids. 2. 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 Baseline creatinine around 1.9 to 2 mg/dL. 3. COVID-19 pneumonia. 4. Metabolic acidosis, improved with sodium bicarb. 5. Mild dementia. PLAN: Check post-void residual and continue to encourage increased oral intake. Okay for discharge. Follow up renal function as outpatient. Will repeat labs in about one week's time. MMODL / IJN: [id number] /
--- NOTE | 2020-12-13 15:49 | P.PN ---
Progress Note - Text Progress Note Date: 12/11/20 REASON FOR FOLLOWUP: COVID pneumonia. INTERVAL HISTORY: Patient remains to be afebrile. The patient is breathing comfortably today. The patient denies having any chest pain. He did have a cough but not bringing up any sputum. No vomiting. No abdominal pain or diarrhea. PHYSICAL EXAMINATION: Blood pressure 120/50 with a pulse of 75, temperature 98. He is 96% on 2 L nasal cannula. GENERAL DESCRIPTION: General description is an elderly male up in the bed in no distress. RESPIRATORY SYSTEM: Unlabored breathing. Decreased intensity of breath sounds. No wheeze. HEART: S1, S2. Regular rate and rhythm. ABDOMEN: Soft. No tenderness. LABS: Reviewed DIAGNOSTIC IMPRESSION AND PLAN: Patient with admission to hospital with shortness of breath and mental status changes which are multifactorial, possible congestive heart failure exacerbation. Possibly a component of COVID infection, being treated with supportive care, on Eliquis, zinc. Slowly wean off his oxygen. Continue supportive care
== END 2020-12-11 14:15 | DRG 177 ==
LOC: EC 15:30 → 3SCARD 19:13
PROVIDERS: ADMIT Hospitalist; ATTEND Hospitalist
PROC: 3E0F7SF Introduction of Other Gas into Respiratory Tract, Via Natural or Artificial Opening (ICD-10-PCS; principal; 2020-12-05)
DX: U07.1 COVID-19 (principal); I50.23 Acute on chronic systolic (congestive) heart failure; J12.82 Pneumonia due to coronavirus disease 2019; J96.01 Acute respiratory failure with hypoxia; N17.0 Acute kidney failure with tubular necrosis; I63.9 Cerebral infarction, unspecified; E87.2 Acidosis; I13.0 Hypertensive heart and chronic kidney disease with heart failure and stage 1 through stage 4 chronic kidney disease, or unspecified chronic kidney disease; I42.9 Cardiomyopathy, unspecified; I48.19 Other persistent atrial fibrillation; J44.0 Chronic obstructive pulmonary disease with (acute) lower respiratory infection; Z66 Do not resuscitate; D63.8 Anemia in other chronic diseases classified elsewhere; E11.22 Type 2 diabetes mellitus with diabetic chronic kidney disease; E11.51 Type 2 diabetes mellitus with diabetic peripheral angiopathy without gangrene; E11.65 Type 2 diabetes mellitus with hyperglycemia; R62.7 Adult failure to thrive; E78.5 Hyperlipidemia, unspecified; D47.2 Monoclonal gammopathy; E11.43 Type 2 diabetes mellitus with diabetic autonomic (poly)neuropathy; E87.5 Hyperkalemia; E11.21 Type 2 diabetes mellitus with diabetic nephropathy; M19.90 Unspecified osteoarthritis, unspecified site; I48.0 Paroxysmal atrial fibrillation; F17.210 Nicotine dependence, cigarettes, uncomplicated; F32.9 Major depressive disorder, single episode, unspecified; I95.9 Hypotension, unspecified; F41.9 Anxiety disorder, unspecified; G30.1 Alzheimer's disease with late onset; I44.7 Left bundle-branch block, unspecified; G47.33 Obstructive sleep apnea (adult) (pediatric); I25.2 Old myocardial infarction; K21.9 Gastro-esophageal reflux disease without esophagitis; N18.30 Chronic kidney disease, stage 3 unspecified; R32 Unspecified urinary incontinence; F03.90 Unspecified dementia, unspecified severity, without behavioral disturbance, psychotic disturbance, mood disturbance, and anxiety; R53.81 Other malaise; R26.9 Unspecified abnormalities of gait and mobility; Z79.01 Long term (current) use of anticoagulants; Z88.5 Allergy status to narcotic agent; Z79.4 Long term (current) use of insulin; Z79.51 Long term (current) use of inhaled steroids; Z79.82 Long term (current) use of aspirin; Z79.899 Other long term (current) drug therapy; Z86.73 Personal history of transient ischemic attack (TIA), and cerebral infarction without residual deficits; Z95.810 Presence of automatic (implantable) cardiac defibrillator; Z96.1 Presence of intraocular lens; Z86.79 Personal history of other diseases of the circulatory system; Z98.42 Cataract extraction status, left eye; Z98.41 Cataract extraction status, right eye; Z86.19 Personal history of other infectious and parasitic diseases; Z87.440 Personal history of urinary (tract) infections
CPT/HCPCS: 36415; 71045; 71046; 80048; 80053; 81001; 82550; 83540; 83550; 83605; 83615; 83735; 83880; 84145; 84484; 85025; 85379; 85610; 85730; 86140; 86334; 87040; 87636; 93005; 93308; 94640; 94760; 96361; 96374; 96376; 99291